=== PATIENT | female | born 1955 | race Hispanic/Latino ===

== ENCOUNTER 2016-09-07 13:59 | Inpatient (IN) | payer MEDICAID ==
[2016-09-07 14:01] VITALS: PULSE 122
[2016-09-07 14:45] VITALS: BMI 21.4
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
[2016-09-07] MEDS: Sodium Chloride 0.9% 1,000 ML IV SCH (16:37)
[2016-09-07 16:39] LABS: BASO # 0.01 K/mm3 (0.0-2.0); BASO % 0.1 % (0.0-3.0); EOS # 0.1 (0.0-0.7); EOS % 0.7 % (1.5-5.0); GRAN # 7.44 (1.4-6.5); GRAN % 78.1 % (50.0-68.0); LYMPH % 10.3 % (22.0-35.0); MEAN CELL VOLUME 91.8 fL (80.0-105.0); MEAN CORPUSCULAR HEMOGLOBIN 29.2 pg (25.0-35.0); MEAN CORPUSCULAR HGB CONC 31.8 g/dl (31.0-37.0); MEAN PLATELET VOLUME 9.9 fl (7.0-11.0); MONO % 10.8 % (1.0-6.0); PLATELET COUNT 287 10^3/uL (120.0-450.0); RBC 2.57 10^6/uL (3.5-6.1); RED CELL DISTRIBUTION WIDTH 13.9 % (11.5-14.5); WHITE BLOOD COUNT 9.5 10^3/ul (4.5-11.0)
[2016-09-07 16:41] LABS: HEMOGLOBIN 7.5 gm/dL (12.0-16.0)
[2016-09-07 16:43] LABS: VENOUS BLOOD GAS BASE EXCESS -5.5 mmol/L (0.0-2.0); VENOUS BLOOD GAS PO2 177 mm/Hg (30-55); VENOUS BLOOD PH 7.42 (7.32-7.43)
[2016-09-07] MEDS ORDERED: Vancomycin 1gm in NS 250ml 1 GM/250 ML BAG IVPB STA (16:48)
[2016-09-07 16:51] LABS: ALBUMIN 3.7 g/dL (3.0-4.8); MAGNESIUM 2.6 mg/dL (1.7-2.2)
[2016-09-07 16:55] LABS: INR 1.06 (0.93-1.08); PARTIAL THROMBOPLASTIN TIME 32.6 Seconds (23.7-30.8); PROTHROMBIN TIME 11.4 Seconds (9.9-11.8)
[2016-09-07] MEDS ORDERED: Insulin Regular 1 UNITS/0.01 ML ML SC STA (17:24)
[2016-09-07 17:58] LABS: URINE APPEARANCE CLEAR (CLEAR); URINE BILIRUBIN NEGATIVE (NEGATIVE); URINE BLOOD TRACE-INTACT (NEGATIVE); URINE COLOR YELLOW (YELLOW); URINE GLUCOSE (UA) >=1000 mg/dL (NEGATIVE); URINE LEUKOCYTE ESTERASE NEGATIVE Leu/uL (NEGATIVE); URINE NITRATE NEGATIVE (NEGATIVE); URINE PROTEIN 30 mg/dL (<30 mg/dL); URINE UROBILINOGEN 0.2 E.U./dL (<1 E.U./dL)
[2016-09-07 18:03] LABS: URINE WBC 0 - 2 /hpf (0-6)
[2016-09-07 18:04] LABS: URINE BACTERIA MOD (NEG)
[2016-09-07 18:05] LABS: URINE AMORPHOUS SEDIMENT FEW
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
[2016-09-07 21:23] LABS: % IRON SATURATION 6 % (20-55); IRON 11 ug/dL (45-180); TOTAL IRON BINDING CAPACITY 189 ug/dL (265-497)
[2016-09-07] MEDS: Insulin Reg-MEDIUM-Coverage SC SCH (22:17)
[2016-09-07] MEDS: Insulin Detemir 100 units/ml Vial (Levemir) SC SCH (22:18)
[2016-09-08] MEDS ORDERED: Acetaminophen 650mg/20.3ml solution UD PO PRN (04:51)
[2016-09-08 07:39] LABS: EOS # 0.1 (0.0-0.7); EOS % 2.3 % (1.5-5.0); GRAN # 4.54 (1.4-6.5); GRAN % 87.7 % (50.0-68.0); LYMPH # 0.3 (1.2-3.4); LYMPH % 4.8 % (22.0-35.0); MEAN CELL VOLUME 93.1 fL (80.0-105.0); MEAN CORPUSCULAR HEMOGLOBIN 28.8 pg (25.0-35.0); MEAN PLATELET VOLUME 10.2 fl (7.0-11.0); MONO # 0.3 (0.1-0.6); MONO % 5.2 % (1.0-6.0); PLATELET COUNT 288 10^3/uL (120.0-450.0); RED CELL DISTRIBUTION WIDTH 14.1 % (11.5-14.5); WHITE BLOOD COUNT 5.2 10^3/ul (4.5-11.0)
[2016-09-08] MEDS: Metoprolol Succinate 50 mg XL Tab PO SCH (07:58)
[2016-09-08] MEDS: Insulin Reg-MEDIUM-Coverage SC SCH ×4 (07:58→22:13)
[2016-09-08 08:09] LABS: HEMOGLOBIN 7.5 gm/dL (12.0-16.0)
[2016-09-08 08:10] LABS: ALBUMIN 3.4 g/dL (3.0-4.8); CALCIUM 9.1 mg/dL (8.4-10.5); MAGNESIUM 2.3 mg/dL (1.7-2.2)
[2016-09-08] MEDS ORDERED: DAPTOmycin 500 mg Inj (Cubicin) IV SCH (09:15)
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
--- NOTE | 2016-09-08 09:30 | RAD ---
HISTORY: r/o pneumonia COMPARISON: 09/20/2014 FINDINGS: LUNGS: No active pulmonary disease. PLEURA: No significant pleural effusion identified, no pneumothorax apparent. CARDIOVASCULAR: Normal. OSSEOUS STRUCTURES: No significant abnormalities. VISUALIZED UPPER ABDOMEN: Normal. OTHER FINDINGS: None. IMPRESSION: No active disease.
--- NOTE | 2016-09-08 10:07 | RAD ---
PROCEDURE: Left Foot Radiographs. HISTORY: cellulitis r/o osteo COMPARISON: 09/15/2013 FINDINGS: BONES: Postsurgical deformities are seen in the distal metatarsals. There has been previous amputation of the big toe. No acute findings JOINTS: Normal. SOFT TISSUES: Normal. OTHER FINDINGS: None. IMPRESSION: Postsurgical deformities are seen in the distal metatarsals. There has been previous amputation of the big toe. No acute findings
--- NOTE | 2016-09-08 10:22 | CARD ---
APPROVED REPORT EKG Measurement Heart [id number] <Conclusion> Sinus tachycardia Otherwise normal ECG
[2016-09-08] MEDS: Meropenem 1g/NS 100mL IVPB 1 GM/100 ML PIGGYBACK IVPB SCH ×3 (10:50→22:37)
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
--- NOTE | 2016-09-08 12:38 | MRI ---
PROCEDURE: MRI of the left foot without contrast HISTORY: r/o osteo COMPARISON: Plain films 09/07/2016 TECHNIQUE: MRI of the left foot was performed in multiple planes using multiple pulse sequences. FINDINGS: There has been previous amputation at the level of the 1st distal metatarsal. There is some chronic bony deformity of the remaining metatarsals. There is a small amount of marrow edema in the 1st metatarsal. This could be related to early osteomyelitis. There is no obvious cortical destruction. The finding is best appreciated on sagittal image 8 series 7. There is a large amount of subcutaneous edema and thickening consistent with cellulitis. IMPRESSION: A mild amount of marrow edema is seen in the 1st metatarsal which could represent early osteomyelitis. Diffuse subcutaneous edema consistent with cellulitis
--- NOTE | 2016-09-08 13:11 | CP.PCM.PN ---
Subjective - Date & Time of Evaluation Date of Evaluation: 09/08/16 Time of Evaluation: 12:54 - Subjective Subjective: Initial Nephrology Consultation: Assessment: Stable Acute Kidney Injury (N17.9) [likely hemodynamic due to current sepsis] versus Chronic Kidney Disease (N18.4) Stage 4 with ? mg proteinuria (R80.9) hx of FREDY in past Anemia (D64.9), uncontrolled DM with hyperglycemia, HTN (I12.9) non anion gap metabolic acidosis hearing loss, esophageal stenosis left foot cellulitis Plan No acute need for renal replacement therapy at this time. Hypertension control with meds as ordered. Patient not on ACEI/ARB due to elevated creatinine. BP controlled for now continue with IVF. will add sodium bicarb 1300 mg TID Monitor Input/Output, daily weights and renal function with basic metabolic panel Check urine analysis, spot protein/creatinine and albumin/creatinine ratio, renal sonogram. Urine for Na, K, chloride Check for 25-OH vitamin D, iPTH, Iron Indices. Check work up as C3, C4, lupus serology, ANCA (MPO and VA-3), serum protein electrophoresis with immunofixation, Hep B and Hep C serology, SCL-70 and anti- centromere antibody consider rheumatology eval once her acute condition resolves to explore multisystem disorder pathology such as scleroderma, vasculitis, MCTD, polychondritis etc Dose meds/antibiotics for reduced GFR 20-25. Avoid fleets enema/magnesium based laxatives. Avoid nephrotoxins/NSAIDs/ iodinated contrast (unless needed emergently) Glycemic control Further work up/management as per primary team Thanks for allowing me to participate in care of your patient. Will follow patient with you. Please call if any Qs. d/w primary team. Dr Javier Reyes Office: [phone] Chief Complaint; Left foot infection Reason for consult: elevated creatinine HPI: Pt is a 61 y/o F with hx of diabetes Mellitus ( x 8-9 years), hypertension (?years), hearing loss, esophageal stenosis, chronic anemia admitted with left foot worsening wound infection for last 1-2 days and renal consulted for elevated creatinine. Denies chest pain, palpitation, shortness of breath, leg swelling Denies blood or bubbles in urine Denies OTC/herbal meds or NSAIDs No recent iodinated contrast exposure. No obvious episodes of low BP. c/o chronic loose stool, nausea, some difficulty in swallowing, hearing loss. She also reports hand deformity due to arthritis ROS: Constitutional Symptoms: Denies fever. No chills. had gained some weight Eyes: denies change in vision, denies watery eyes, denies double vision Ears/Nose/Mouth/Throat: Denies Abnormal Taste. No Bad breath no Bad Taste. Cardiovascular: No chest pain. There is no shortness of breath. No palpitations. Pulmonary: No shortness of breath no cough. Gastrointestinal: denies abdominal pain c/o nausea. No vomiting. has chronic loose stool. Denies Bleeding Genitourinary: No Change in force of strain when urinating. No increase in urinary frequency. No pain while urinating. Denies blood in urine. Neurological: Denies headaches. No dizziness. Denies loss of balance. Denies weakness, denies tingling/numbness Dermatological: No Rash or Bruising. c/o b/l feet ulcers. also c/o scab/ crusting on tip of nose for few weeks. Psychiatric: Denies Anxiety. No depression. Denies hallucinations. Rheumatological: c/o left foot pain and swelling Endocrine: has some chronic tiredness/Fatigue denies Heat/Cold Intolerance. All other negative Physical Examination: General Appearance: Comfortable, in no acute respiratory distress, co-operative . frail appearing female Vitals reviewed and noted as below Head; Atraumatic, normocephalic ENT: no ulcers no thrush. Tongue is midline. Oropharynx: no rash or ulcers. has scab/crusting over tip of nose. she is hard of hearing. EYES: Pupils are equal, round and reactive to light accommodation. Eye muscles and extraocular movement intact. Sclera is anicteric. Neck; supple no lymphadenopathy, no thyromegaly or bruit Lungs: Normal respiratory rate/effort. Breath sounds bilateral equal and clear Heart: Increased rate. s1s2 normal. No rub or gallop. Extremities: LLE 1+ edema with left foot dressed. scab/ulceration on Rt foot as well, no active drainage there. No varicose veins. b/l hand deformity noted Neurological: Patient is alert, awake and oriented to person, place and time. No focal deficit. Strength bilateral appropriate and equal Skin: Warm and dry. turgor difficulty to ascertain due to her malnourished appearing status. No rash. Palpitation: Normal elasticity for age Abdomen: Abdomen is soft. Bowel sounds +. There is no abdominal tenderness, no guarding/rigidity no organomegaly Psych: normal insight and normal affect/mood MSK: left foot swelling +. b/l hand digits deformity : kidney or bladder not palpable Labs/imaging/EKG reviewed. Past medical history, past surgical history, family history, social history, allergy reviewed and noted as below Family hx: no hx of CKD. Rest non-contributory WORK UP UA: 30 protein trace blood RBC 2-5 and 3+ glucose CXR negative TSAT 6% Serum creatinine 1.9 in 2016 and 1.1 in 2015 Objective - Vital Signs/Intake and Output Vital Signs (last 24 hours): Temp Pulse Resp BP Pulse Ox 100.1 F H 120 H 20 131/61 98 09/08/16 07:30 09/08/16 07:58 09/08/16 07:30 09/08/16 07:58 09/08/16 07:30 Intake and Output: 09/08/16 09/08/16 06:59 18:59 Intake Total 180 Balance 180 - Medications Medications: Current Medications Acetaminophen (Tylenol 650mg/20.3ml Solution Ud) 650 mg PO Q6H PRN PRN Reason: fever Last Admin: 09/08/16 05:11 Dose: 650 mg Aspirin (Ecotrin) 81 mg PO DAILY [facility] Last Admin: 09/08/16 10:45 Dose: 81 mg Cadexomer Iodine (Iodosorb) 0 gm TOP DAILY [facility] Heparin Sodium (Porcine) (Heparin) 5,000 units SC Q12 [facility] PRN Reason: Protocol Last Admin: 09/08/16 10:49 Dose: 5,000 units Sodium Chloride (Sodium Chloride 0.9%) 1,000 mls @ 100 mls/hr IV .Q10H [facility] Last Admin: 09/07/16 16:37 Dose: 100 mls/hr Meropenem 1g/NS 100mL IVPB (Meropenem 1g/Ns 100ml Ivpb) 1 gm in 100 mls @ 100 mls/hr IVPB Q12 [facility] PRN Reason: Protocol Stop: 09/17/16 10:01 Last Admin: 09/08/16 10:50 Dose: 100 mls/hr Insulin Detemir (Levemir) 10 unit SC [facility] Last Admin: 09/07/16 22:18 Dose: 10 unit Insulin Human Regular (Humulin R Med) 0 units SC [facility] PRN Reason: Protocol Last Admin: 09/08/16 12:45 Dose: 1 units Megestrol Acetate (Megace) 40 mg PO DAILY [facility] Last Admin: 09/08/16 10:45 Dose: 40 mg Metoprolol Succinate (Toprol Xl) 50 mg PO BRK [facility] Last Admin: 09/08/16 07:58 Dose: 50 mg Pantoprazole Sodium (Protonix Inj) 40 mg IVP DAILY [facility] Last Admin: 09/08/16 10:51 Dose: 40 mg Sodium Bicarbonate (Sodium Bicarbonate Tab) 1,300 mg PO TID [facility] - Labs Labs: 09/08/16 06:55 09/08/16 07:00 PT 11.4 Seconds (9.9-11.8) 09/07/16 16:30 INR 1.06 (0.93-1.08) 09/07/16 16:30 APTT 32.6 Seconds (23.7-30.8) H 09/07/16 16:30
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
--- NOTE | 2016-09-08 14:16 | CP.PCM.PN ---
Subjective - Date & Time of Evaluation Date of Evaluation: 09/08/16 Time of Evaluation: 13:45 - Subjective Subjective: Patient has very poor veins,needs iv access Objective - Vital Signs/Intake and Output Vital Signs (last 24 hours): Temp Pulse Resp BP Pulse Ox 100.1 F H 120 H 20 131/61 98 09/08/16 07:30 09/08/16 07:58 09/08/16 07:30 09/08/16 07:58 09/08/16 07:30 Intake and Output: 09/08/16 09/08/16 06:59 18:59 Intake Total 180 Balance 180 - Medications Medications: Current Medications Acetaminophen (Tylenol 650mg/20.3ml Solution Ud) 650 mg PO Q6H PRN PRN Reason: fever Last Admin: 09/08/16 05:11 Dose: 650 mg Aspirin (Ecotrin) 81 mg PO DAILY [facility] Last Admin: 09/08/16 10:45 Dose: 81 mg Cadexomer Iodine (Iodosorb) 0 gm TOP DAILY [facility] Heparin Sodium (Porcine) (Heparin) 5,000 units SC Q12 [facility] PRN Reason: Protocol Last Admin: 09/08/16 10:49 Dose: 5,000 units Sodium Chloride (Sodium Chloride 0.9%) 1,000 mls @ 100 mls/hr IV .Q10H [facility] Last Admin: 09/07/16 16:37 Dose: 100 mls/hr Meropenem 1g/NS 100mL IVPB (Meropenem 1g/Ns 100ml Ivpb) 1 gm in 100 mls @ 100 mls/hr IVPB Q12 [facility] PRN Reason: Protocol Stop: 09/17/16 10:01 Last Admin: 09/08/16 10:50 Dose: 100 mls/hr Insulin Detemir (Levemir) 10 unit SC HS [facility] Last Admin: 09/07/16 22:18 Dose: 10 unit Insulin Human Regular (Humulin R Med) 0 units SC ACHS [facility] PRN Reason: Protocol Last Admin: 09/08/16 12:45 Dose: 1 units Megestrol Acetate (Megace) 40 mg PO DAILY [facility] Last Admin: 09/08/16 10:45 Dose: 40 mg Metoprolol Succinate (Toprol Xl) 50 mg PO BRK [facility] Last Admin: 09/08/16 07:58 Dose: 50 mg Pantoprazole Sodium (Protonix Inj) 40 mg IVP DAILY [facility] Last Admin: 09/08/16 10:51 Dose: 40 mg Sodium Bicarbonate (Sodium Bicarbonate Tab) 1,300 mg PO TID [facility] - Labs Labs: 09/08/16 06:55 09/08/16 07:00 PT 11.4 Seconds (9.9-11.8) 09/07/16 16:30 INR 1.06 (0.93-1.08) 09/07/16 16:30 APTT 32.6 Seconds (23.7-30.8) H 09/07/16 16:30 - Constitutional Appears: No Acute Distress Assessment and Plan - Assessment and Plan (Free Text) Assessment: Poor venous access. Plan: Hep lock inserted in the L antecubital region. # 24 angiocath used. Note :Pt will probably need a Picc line or TLC
[2016-09-08] MEDS ORDERED: Lidocaine 2% Inj (20ml) ONE (14:31)
--- NOTE | 2016-09-08 17:49 | CP.PCM.PN ---
<Chong [place] - Last Filed: 09/08/16 17:39> Subjective - Date & Time of Evaluation Date of Evaluation: 09/08/16 Time of Evaluation: 07:15 - Subjective Subjective: Internal Medicine Progress Note for Dr. Galvez/Dr. Salazar service Patient seen and examined at bedside. Today is hospital day 2. No acute events overnight. Left foot still acutely tender for patient, experiences pain when removing blanket from on-top of foot. Denies chest pain, shortness of breath, nausea/emesis, fever/chills, calf pain, or focal weakness. Objective - Vital Signs/Intake and Output Vital Signs (last 24 hours): Temp Pulse Resp BP Pulse Ox 98.4 F 115 H 20 120/64 96 09/08/16 16:29 09/08/16 16:29 09/08/16 16:29 09/08/16 16:29 09/08/16 16:29 Intake and Output: 09/08/16 09/08/16 06:59 18:59 Intake Total 180 480 Balance 180 480 - Medications Medications: Current Medications Acetaminophen (Tylenol 650mg/20.3ml Solution Ud) 650 mg PO Q6H PRN PRN Reason: fever Last Admin: 09/08/16 05:11 Dose: 650 mg Aspirin (Ecotrin) 81 mg PO DAILY [facility] Last Admin: 09/08/16 10:45 Dose: 81 mg Cadexomer Iodine (Iodosorb) 0 gm TOP DAILY [facility] Heparin Sodium (Porcine) (Heparin) 5,000 units SC Q12 [facility] PRN Reason: Protocol Last Admin: 09/08/16 10:49 Dose: 5,000 units Sodium Chloride (Sodium Chloride 0.9%) 1,000 mls @ 100 mls/hr IV .Q10H [facility] Last Admin: 09/07/16 16:37 Dose: 100 mls/hr Meropenem 1g/NS 100mL IVPB (Meropenem 1g/Ns 100ml Ivpb) 1 gm in 100 mls @ 100 mls/hr IVPB Q12 [facility] PRN Reason: Protocol Stop: 09/17/16 10:01 Last Admin: 09/08/16 16:35 Dose: Not Given Insulin Detemir (Levemir) 10 unit SC HS [facility] Last Admin: 09/07/16 22:18 Dose: 10 unit Insulin Human Regular (Humulin R Med) 0 units SC ACHS [facility] PRN Reason: Protocol Last Admin: 09/08/16 12:45 Dose: 1 units Megestrol Acetate (Megace) 40 mg PO DAILY [facility] Last Admin: 09/08/16 10:45 Dose: 40 mg Metoprolol Succinate (Toprol Xl) 50 mg PO BRK [facility] Last Admin: 09/08/16 07:58 Dose: 50 mg Pantoprazole Sodium (Protonix Inj) 40 mg IVP DAILY [facility] Last Admin: 09/08/16 10:51 Dose: 40 mg Sodium Bicarbonate (Sodium Bicarbonate Tab) 1,300 mg PO TID [facility] - Labs Labs: 09/08/16 06:55 09/08/16 07:00 PT 11.4 Seconds (9.9-11.8) 09/07/16 16:30 INR 1.06 (0.93-1.08) 09/07/16 16:30 APTT 32.6 Seconds (23.7-30.8) H 09/07/16 16:30 - Constitutional Appears: Well, Non-toxic, Older Than Stated Age, Chronically Ill, Other (No acute distress at rest, but any movement or contact with left foot elicits distress 2/2 pain) - Head Exam Head Exam: ATRAUMATIC, NORMAL INSPECTION, NORMOCEPHALIC - Eye Exam Eye Exam: EOMI, Normal appearance. absent: Conjunctival injection, Scleral icterus Pupil Exam: absent: Irregular, Unequal - ENT Exam ENT Exam: Mucous Membranes Moist - Neck Exam Neck Exam: Full ROM - Respiratory Exam Respiratory Exam: Clear to Ausculation Bilateral, NORMAL BREATHING PATTERN. absent: Accessory Muscle Use, Chest Wall Tenderness, Decreased Breath Sounds, Rales, Rhonchi, Wheezes - Cardiovascular Exam Cardiovascular Exam: Tachycardia, REGULAR RHYTHM, +S1, +S2. absent: Bradycardia , Irregular Rhythm, JVD, RRR, +S4 - GI/Abdominal Exam GI & Abdominal Exam: Soft. absent: Distended, Firm, Rigid, Tenderness, Diminished Bowel Sounds, Hyperactive Bowel Sounds, Hypoactive Bowel Sounds - Extremities Exam Additional comments: Left foot: great toe amputated, multiple subcutaneous pockets of purulence with some leakage along distal area at site of amputation extending proximally (up to bottom 1/3rd of foot), acutely tender to palpation at all sites of foot up to ankle (most prominent at sites of purulence), non-healing blacked ulceration at terminal end of 1st toe amputation site, faintly palpable dorsalis pedis pulse (thready), unable to palpate posterior tibial pulse. Abnormally warm to palpation along length of foot extending past ankle into bottom 1/8th of murry. Grossly swollen and erythematous, but non-pitting edema Right foot: no amputations, normal temp on palpation, excess dry skin, no edema/ erythema, small 1-2 cm shallow ulceration without active oozing/discharge, no bone visualized, some duskyness to skin, faintly palpable dorsalis pedis, unable to palpate posterior tibial pulse. - Neurological Exam Neurological Exam: Alert, Awake - Psychiatric Exam Psychiatric exam: Normal Affect, Normal Mood - Skin Additional comments: Except as described in lower extremity exam, warm/intact/normal color Assessment and Plan - Assessment and Plan (Free Text) Assessment: This is a 61 yo F with PMH of DM-2, anemia, PAD, GERD, osteomyelitis, esophageal stenosis, HTN, CKD, and CAD that presents with complaint of left foot pain and purulent drainage x2 days. She is being worked up for suspected osteomyelitis. Plan: 1) LLE Cellulitis vs osteomyelitis -febrile overnight, Tmax 102.3, improved with tylenol -no leukocytosis -Lactate within normal limits -Left foot xray negative for acute findings, pending foot MRI to r/o osteo as per Podiatry -Patient given 1 dose of vancomycin in the ED, now on Merrem as per ID -History of recurrent cellulitis/osteomyelitis, allergies and renal impairment -Sepsis workup pending: Blood cultures negative at 24 hours, wound culture pending, procal 8.44 -ID (Dr. Castellano) and Podiatry (Dr. Mattson) consulted, appreciate all recs -Given extremely poor venous access and high chance of needing prolonged antibiotics again, IR consulted for PICC line 2) DM-2 -Patient presented with glucose of 326 in the ED, given stat dose of 6 units humulin -Continue 10u levemir SC HS, humalog Med-ISS -Consistent carb diet -Fingersticks ACHS -A1c 13.4 3) FREDY on CKD -Cr 2.2 on admit, 2.2 again today, baseline from prior charting 1.1-1.4 -low bicarb (15) on admit and today, so some metabolic acidosis (bicarb loss 2/ 2 renal disease vs 2/2 elevated blood glucose) -Nephro consulted (Dr. Reyes), appreciate all recs -Renal US ordered as per Nephro 4) Anemia -Hgb of 7.5 on arrival to the ED (7.5 again today), per chart appears to be a chronic issue for which she was seen by Dr. Hartman in the past; Thought to be secondary to chronic kidney disease, low vitamin B12, and possibly malabsorption ; Previously treated with IV iron and aranesp; Was recommended to follow up with Dr. Hartman as an outpatient but has not -Anemia workup: low iron/iron sat/TIBC, elevated ferritin, retic count within normal range, folate wnl, elevated B12 -Type and screen ordered -No overt signs of blood loss at this time, will transfuse should patient hgb drop below 7 or become symptomatic -Hematology (Dr. Hartman) consulted, appreciate all recs 5) CAD -Continue ASA 81mg po daily 6) Hyperkalemia -5.2 on admit, 4.4 today -continue to monitor Dispo: Med/Surg, pending MRI to r/o osteo, pending Nephro/Podiatry/Heme-onc input, IV abx and monitoring of electrolytes/Hgb FEN: Heart-healthy consistent carb, NS 100cc/hr Access: Peripheral IV x1, PICC line (pending) Consults: ID, IR, Heme-onc, Podiatry, Nephro Ppx: Protonix for GI, Heparin SC for DVT Patient seen, reviewed, and discussed with attending, Dr. Salazar <Xavier Salazar - Last Filed: 09/13/16 15:26> Objective - Vital Signs/Intake and Output Vital Signs (last 24 hours): Temp Pulse Resp BP Pulse Ox 97.9 F 93 H 20 135/74 99 09/13/16 07:30 09/13/16 09:54 09/13/16 07:30 09/13/16 09:54 09/13/16 07:30 Intake and Output: 09/13/16 09/13/16 06:59 18:59 Intake Total 600 640 Output Total 1 Balance 600 639 - Medications Medications: Current Medications Acetaminophen (Tylenol 650mg/20.3ml Solution Ud) 650 mg PO Q6H PRN PRN Reason: fever Last Admin: 09/08/16 05:11 Dose: 650 mg Aspirin (Ecotrin) 81 mg PO DAILY [facility] Last Admin: 09/13/16 09:56 Dose: 81 mg Cadexomer Iodine (Iodosorb) 0 gm TOP DAILY [facility] Last Admin: 09/13/16 09:58 Dose: 1 gm Collagenase (Santyl) 0 gm TOP DAILY [facility] Last Admin: 09/13/16 10:14 Dose: 1 applic Ergocalciferol (Drisdol 50,000 Intl Units Cap) 1 cap PO Q7D [facility] Stop: 10/29/16 09:31 Last Admin: 09/10/16 10:18 Dose: 1 cap Ferrous Gluconate (Fergon) 324 mg PO TID [facility] Last Admin: 09/13/16 14:51 Dose: 324 mg Heparin Sodium (Porcine) (Heparin) 5,000 units SC Q12 [facility] PRN Reason: Protocol Last Admin: 09/13/16 09:58 Dose: 5,000 units Meropenem 1g/NS 100mL IVPB (Meropenem 1g/Ns 100ml Ivpb) 1 gm in 100 mls @ 100 mls/hr IVPB Q12 [facility] PRN Reason: Protocol Stop: 09/17/16 10:01 Last Admin: 09/13/16 10:01 Dose: 100 mls/hr Iron Sucrose 100 mg/ Sodium (Chloride) 105 mls @ 210 mls/hr IVPB DAILY [facility] Stop: 09/15/16 12:01 Last Admin: 09/13/16 10:02 Dose: 210 mls/hr Insulin Detemir (Levemir) 12 unit SC AMHS [facility] Last Admin: 09/13/16 10:00 Dose: 12 unit Insulin Human Regular (Humulin R Med) 0 units SC ACHS [facility] PRN Reason: Protocol Last Admin: 09/13/16 12:02 Dose: 8 units Losartan Potassium (Cozaar) 50 mg PO DAILY [facility] Last Admin: 09/13/16 09:54 Dose: 50 mg Magnesium Oxide (Mag-Ox) 400 mg PO DAILY [facility] Last Admin: 09/13/16 10:01 Dose: 400 mg Megestrol Acetate (Megace) 40 mg PO DAILY [facility] Last Admin: 09/13/16 10:01 Dose: 40 mg Metoprolol Succinate (Toprol Xl) 50 mg PO BRK [facility] Last Admin: 09/13/16 08:11 Dose: 50 mg Multivitamins (Thera Tab) 1 tab PO 0800 [facility] Last Admin: 09/13/16 08:11 Dose: 1 tab Mupirocin (Bactroban Ointment) 0 gm TOP BID [facility] Last Admin: 09/13/16 11:56 Dose: 1 applic Pantoprazole Sodium (Protonix Susp) 40 mg PO 0600 [facility] Last Admin: 09/13/16 05:34 Dose: 40 mg Sodium Bicarbonate (Sodium Bicarbonate Tab) 650 mg PO TID [facility] Last Admin: 09/13/16 14:52 Dose: 650 mg - Labs Labs: 09/13/16 05:45 09/13/16 05:45 PT 11.4 Seconds (9.9-11.8) 09/07/16 16:30 INR 1.06 (0.93-1.08) 09/07/16 16:30 APTT 32.6 Seconds (23.7-30.8) H 09/07/16 16:30 Attending/Attestation - Attestation I have personally seen and examined this patient.: Yes I have fully participated in the care of the patient.: Yes I have reviewed all pertinent clinical information, including history, physical exam and plan: Yes Notes (Text): 09/13/16 15:26 Medical record note made by the resident after discussion with my direction and input after the patient was personally seen and examined by me. I have reviewed the chart and agree that the record accurately reflects by personal performance of the history, physical exam, data review, and medical decision-making, in the course for the patient. I have also personally directed the plan of care.
[2016-09-08 17:55] LABS: FOLATE > 20.0 ng/mL
--- NOTE | 2016-09-08 17:58 | US ---
PROCEDURE: Ultrasound of the Kidneys HISTORY: FREDY on CKD COMPARISON: None available. TECHNIQUE: Sonogram of the kidneys. FINDINGS: RIGHT KIDNEY: Measures: 4 x 9.7 cm. Cortical atrophy noted. No stone, solid mass lesion or hydronephrosis visualized. Incidental finding(s): Simple cyst upper pole 1 cm LEFT KIDNEY: Measures: 4.6 x 9.2 cm. Cortical atrophy identified No stone, solid mass lesion or hydronephrosis visualized. OTHER FINDINGS: None. IMPRESSION: No acute findings related to/accounting for the clinical presentation.
[2016-09-08] MEDS: Insulin Detemir 100 units/ml Vial (Levemir) SC SCH (22:13)
[2016-09-08] MEDS: Sodium Chloride 0.9% 1,000 ML IV SCH (22:38)
[2016-09-09] MEDS: CADEXOMER IODINE 0.9% GEL 10G TOP SCH ×2 (08:39→09:13)
[2016-09-09] MEDS: Insulin Reg-MEDIUM-Coverage SC SCH ×3 (08:43→22:07)
--- NOTE | 2016-09-09 08:59 | CP.PCM.PN ---
<Solo Jewella - Last Filed: 09/09/16 08:56> Subjective - Date & Time of Evaluation Date of Evaluation: 09/09/16 Time of Evaluation: 08:56 - Subjective Subjective: 61 y/o F seen at bedside with attending Dr. Raymond for left foot cellulitis and sub met 1 ulceration. Patient seen resting comfortably, AAOx3 and NAD. Patient denies any acute events overnight. Patient reports continued tenderness to her left foot. Pt denies of any N/V/C/SOB today. No other pedal complaints at this time. Objective - Vital Signs/Intake and Output Vital Signs (last 24 hours): Temp Pulse Resp BP Pulse Ox 98.1 F 112 H 20 125/53 L 99 09/09/16 07:34 09/09/16 07:34 09/09/16 07:34 09/09/16 07:34 09/09/16 07:34 Intake and Output: 09/09/16 09/09/16 06:59 18:59 Intake Total 600 Balance 600 - Medications Medications: Current Medications Acetaminophen (Tylenol 650mg/20.3ml Solution Ud) 650 mg PO Q6H PRN PRN Reason: fever Last Admin: 09/08/16 05:11 Dose: 650 mg Aspirin (Ecotrin) 81 mg PO DAILY [facility] Last Admin: 09/08/16 10:45 Dose: 81 mg Cadexomer Iodine (Iodosorb) 0 gm TOP DAILY [facility] Last Admin: 09/09/16 08:39 Dose: 1 gm Heparin Sodium (Porcine) (Heparin) 5,000 units SC Q12 [facility] PRN Reason: Protocol Last Admin: 09/08/16 22:10 Dose: 5,000 units Sodium Chloride (Sodium Chloride 0.9%) 1,000 mls @ 100 mls/hr IV .Q10H [facility] Last Admin: 09/08/16 22:38 Dose: 100 mls/hr Meropenem 1g/NS 100mL IVPB (Meropenem 1g/Ns 100ml Ivpb) 1 gm in 100 mls @ 100 mls/hr IVPB Q12 [facility] PRN Reason: Protocol Stop: 09/17/16 10:01 Last Admin: 09/08/16 22:37 Dose: 100 mls/hr Insulin Detemir (Levemir) 10 unit SC HS [facility] Last Admin: 09/08/16 22:13 Dose: 10 unit Insulin Human Regular (Humulin R Med) 0 units SC ACHS [facility] PRN Reason: Protocol Last Admin: 09/09/16 08:43 Dose: Not Given Megestrol Acetate (Megace) 40 mg PO DAILY [facility] Last Admin: 09/08/16 10:45 Dose: 40 mg Metoprolol Succinate (Toprol Xl) 50 mg PO BRK [facility] Last Admin: 09/08/16 07:58 Dose: 50 mg Pantoprazole Sodium (Protonix Inj) 40 mg IVP DAILY [facility] Last Admin: 09/08/16 10:51 Dose: 40 mg Sodium Bicarbonate (Sodium Bicarbonate Tab) 1,300 mg PO TID [facility] Last Admin: 09/08/16 17:53 Dose: 1,300 mg - Labs Labs: 09/08/16 06:55 09/08/16 07:00 PT 11.4 Seconds (9.9-11.8) 09/07/16 16:30 INR 1.06 (0.93-1.08) 09/07/16 16:30 APTT 32.6 Seconds (23.7-30.8) H 09/07/16 16:30 - Constitutional Appears: Well, Non-toxic, No Acute Distress - Extremities Exam Additional comments: Left foot focused exam: VASC: DP/PT pulses are palpable 2/4, RN PRODUCTION: < 3 sec x 4, TG: warm to cool, no pitting or non-pitting edema noted, superficial erythema noted surrounding forefoot DERM: superficial wound on plantar 1st metatarsal head with hyperkeratotic rim, wound base is necrotic with fibrotic border, no malodor, no drainage noted, no probe to bone, no undermining or tunneling noted, superficial epidermal layer shedding noted, localized erythema noted on the dorsum of the L forefoot NEURO: Grossly intact ORTHO: pain on palpation of the lesion site, L foot hallux amputation, contracted digits 2-4 noted - Neurological Exam Neurological Exam: Alert, Awake, Oriented x3 - Psychiatric Exam Psychiatric exam: Normal Affect, Normal Mood Assessment and Plan - Assessment and Plan (Free Text) Assessment: 61 y/o female with PMHx of Diabetes mellitus type 2, anemia, peripheral arterial disease, GERD, esophageal stenosis, hypertension, chronic kidney disease, osteomyelitis, CAD seen at bedside for L foot cellulitis and open ulceration Plan: Pt evaluated and chart reviewed and seen at bedside with Dr. Raymond Labs and vital reviewed: afebrile, absent leukocytosis, HbA1c = 13.4, ESR = 87, Cr-P >15.00 Follow up wound cx Continue IV abx as per ID; meropenem X-rays reviewed (no significant soft tissue edema or gross abnormalities noted) MRI results obtained: marrow edema 1st met, could be suggestive of early OM Applied iodosorb, adaptic, maxsorb, ABD, kerlix to left foot Podiatry will continue to follow the pt while in-house <Jose Raymond - Last Filed: 09/11/16 08:18> Objective - Vital Signs/Intake and Output Vital Signs (last 24 hours): Temp Pulse Resp BP Pulse Ox 98.6 F 93 H 18 153/86 H 98 09/10/16 20:28 09/10/16 20:28 09/10/16 20:28 09/10/16 20:28 09/10/16 08:45 Intake and Output: 09/11/16 09/11/16 06:59 18:59 Intake Total 1255 Output Total 250 Balance 1005 - Medications Medications: Current Medications Acetaminophen (Tylenol 650mg/20.3ml Solution Ud) 650 mg PO Q6H PRN PRN Reason: fever Last Admin: 09/08/16 05:11 Dose: 650 mg Aspirin (Ecotrin) 81 mg PO DAILY [facility] Last Admin: 09/10/16 10:19 Dose: 81 mg Cadexomer Iodine (Iodosorb) 0 gm TOP DAILY [facility] Last Admin: 09/10/16 15:03 Dose: 10 gm Ergocalciferol (Drisdol 50,000 Intl Units Cap) 1 cap PO Q7D [facility] Stop: 10/29/16 09:31 Last Admin: 09/10/16 10:18 Dose: 1 cap Ferrous Gluconate (Fergon) 324 mg PO TID [facility] Last Admin: 09/10/16 18:03 Dose: 324 mg Heparin Sodium (Porcine) (Heparin) 5,000 units SC Q12 [facility] PRN Reason: Protocol Last Admin: 09/10/16 21:08 Dose: 5,000 units Sodium Chloride (Sodium Chloride 0.9%) 1,000 mls @ 100 mls/hr IV .Q10H [facility] Last Admin: 09/11/16 01:06 Dose: 100 mls/hr Meropenem 1g/NS 100mL IVPB (Meropenem 1g/Ns 100ml Ivpb) 1 gm in 100 mls @ 100 mls/hr IVPB Q12 [facility] PRN Reason: Protocol Stop: 09/17/16 10:01 Last Admin: 09/10/16 21:07 Dose: 100 mls/hr Iron Sucrose 100 mg/ Sodium (Chloride) 105 mls @ 210 mls/hr IVPB DAILY [facility] Stop: 09/15/16 12:01 Last Admin: 09/10/16 13:02 Dose: 210 mls/hr Insulin Detemir (Levemir) 10 unit SC HS [facility] Last Admin: 09/10/16 21:07 Dose: 10 unit Insulin Human Regular (Humulin R Med) 0 units SC ACHS [facility] PRN Reason: Protocol Last Admin: 09/10/16 21:09 Dose: Not Given Magnesium Oxide (Mag-Ox) 400 mg PO DAILY [facility] Last Admin: 09/10/16 10:19 Dose: 400 mg Megestrol Acetate (Megace) 40 mg PO DAILY [facility] Last Admin: 09/10/16 10:18 Dose: 40 mg Metoprolol Succinate (Toprol Xl) 50 mg PO BRK [facility] Last Admin: 09/10/16 10:20 Dose: 50 mg Multivitamins (Thera Tab) 1 tab PO 0800 [facility] Last Admin: 09/10/16 10:18 Dose: 1 tab Pantoprazole Sodium (Protonix Susp) 40 mg PO 0600 [facility] Last Admin: 09/11/16 05:28 Dose: Not Given Sodium Bicarbonate (Sodium Bicarbonate Tab) 1,300 mg PO TID [facility] Last Admin: 09/10/16 18:03 Dose: 1,300 mg - Labs Labs: 09/11/16 05:50 09/11/16 05:50 PT 11.4 Seconds (9.9-11.8) 09/07/16 16:30 INR 1.06 (0.93-1.08) 09/07/16 16:30 APTT 32.6 Seconds (23.7-30.8) H 09/07/16 16:30 Attending/Attestation - Attestation I have personally seen and examined this patient.: Yes I have fully participated in the care of the patient.: Yes I have reviewed all pertinent clinical information, including history, physical exam and plan: Yes
[2016-09-09] MEDS: Meropenem 1g/NS 100mL IVPB 1 GM/100 ML PIGGYBACK IVPB SCH ×2 (09:12→21:46)
[2016-09-09] MEDS: Metoprolol Succinate 50 mg XL Tab PO SCH (09:12)
[2016-09-09] MEDS ORDERED: Darbepoetin Alfa 40 mcg/ml Inj SC ONE (09:26)
--- NOTE | 2016-09-09 09:59 | CP.PCM.PN ---
Subjective - Date & Time of Evaluation Date of Evaluation: 09/09/16 Time of Evaluation: 09:57 - Subjective Subjective: Follow up Nephrology Consultation: Assessment: Stable Acute Kidney Injury (N17.9) [likely hemodynamic due to current sepsis] versus Chronic Kidney Disease (N18.4) Stage 4 with ? mg proteinuria (R80.9) with biltareal renal cortical atrophy seen on sonogram. Simple cyst Rt kidney hx of FREDY in past Anemia (D64.9), uncontrolled DM with hyperglycemia, HTN (I12.9) non anion gap metabolic acidosis hearing loss, esophageal stenosis left foot cellulitis Plan No acute need for renal replacement therapy at this time. Hypertension control with meds as ordered. Patient not on ACEI/ARB due to elevated creatinine. BP controlled for now continue with IVF. added sodium bicarb 1300 mg TID Monitor Input/Output, daily weights and renal function with basic metabolic panel Check urine analysis, spot protein/creatinine and albumin/creatinine ratio, renal sonogram. Urine for Na, K, chloride Check for 25-OH vitamin D, iPTH, Iron Indices. Check work up as C3, C4, lupus serology, ANCA (MPO and MI-3), serum protein electrophoresis with immunofixation, Hep B and Hep C serology, SCL-70 and anti- centromere antibody consider rheumatology eval once her acute condition resolves to explore multisystem disorder pathology such as scleroderma, vasculitis, MCTD, polychondritis etc Dose meds/antibiotics for reduced GFR 20-25. Avoid fleets enema/magnesium based laxatives. Avoid nephrotoxins/NSAIDs/ iodinated contrast (unless needed emergently) Glycemic control Further work up/management as per primary team Thanks for allowing me to participate in care of your patient. Will follow patient with you. Please call if any Qs. d/w primary team. Dr Javier Reyes Office: [phone] Reason for consult: elevated creatinine HPI: Pt is a 61 y/o F with hx of diabetes Mellitus ( x 8-9 years), hypertension (?years), hearing loss, esophageal stenosis, chronic anemia admitted with left foot worsening wound infection for last 1-2 days and renal consulted for elevated creatinine. ROS: Denies chest pain, palpitation, shortness of breath, leg swelling Physical Examination: General Appearance: Comfortable, in no acute respiratory distress, co-operative . frail appearing female Vitals reviewed and noted as below Lungs: Normal respiratory rate/effort. Breath sounds bilateral equal and clear Heart: Increased rate. s1s2 normal. No rub or gallop. Extremities: LLE 1+ edema with left foot dressed. scab/ulceration on Rt foot as well, no active drainage there. No varicose veins. b/l hand deformity noted Neurological: Patient is alert, awake and oriented to person, place and time. No focal deficit. Strength bilateral appropriate and equal Skin: Warm and dry. turgor difficulty to ascertain due to her malnourished appearing status. No rash. Palpitation: Normal elasticity for age Abdomen: Abdomen is soft. Bowel sounds +. There is no abdominal tenderness, no guarding/rigidity no organomegaly Psych: normal insight and normal affect/mood MSK: left foot swelling +. b/l hand digits deformity : kidney or bladder not palpable Labs/imaging/EKG reviewed. Past medical history, past surgical history, family history, social history, allergy reviewed and noted as below Family hx: no hx of CKD. Rest non-contributory WORK UP UA: 30 protein trace blood RBC 2-5 and 3+ glucose CXR negative TSAT 6% Serum creatinine 1.9 in 2016 and 1.1 in 2014 Objective - Vital Signs/Intake and Output Vital Signs (last 24 hours): Temp Pulse Resp BP Pulse Ox 98.1 F 112 H 20 125/53 L 99 09/09/16 07:34 09/09/16 07:34 09/09/16 07:34 09/09/16 09:12 09/09/16 07:34 Intake and Output: 09/09/16 09/09/16 06:59 18:59 Intake Total 600 Balance 600 - Medications Medications: Current Medications Acetaminophen (Tylenol 650mg/20.3ml Solution Ud) 650 mg PO Q6H PRN PRN Reason: fever Last Admin: 09/08/16 05:11 Dose: 650 mg Aspirin (Ecotrin) 81 mg PO DAILY [facility] Last Admin: 09/09/16 09:12 Dose: 81 mg Cadexomer Iodine (Iodosorb) 0 gm TOP DAILY [facility] Last Admin: 09/09/16 09:13 Dose: Not Given Ferrous Gluconate (Fergon) 324 mg PO TID [facility] Heparin Sodium (Porcine) (Heparin) 5,000 units SC Q12 [facility] PRN Reason: Protocol Last Admin: 09/09/16 09:13 Dose: 5,000 units Sodium Chloride (Sodium Chloride 0.9%) 1,000 mls @ 100 mls/hr IV .Q10H [facility] Last Admin: 09/08/16 22:38 Dose: 100 mls/hr Meropenem 1g/NS 100mL IVPB (Meropenem 1g/Ns 100ml Ivpb) 1 gm in 100 mls @ 100 mls/hr IVPB Q12 [facility] PRN Reason: Protocol Stop: 09/17/16 10:01 Last Admin: 09/09/16 09:12 Dose: 100 mls/hr Insulin Detemir (Levemir) 10 unit SC HS [facility] Last Admin: 09/08/16 22:13 Dose: 10 unit Insulin Human Regular (Humulin R Med) 0 units SC ACHS [facility] PRN Reason: Protocol Last Admin: 09/09/16 08:43 Dose: Not Given Megestrol Acetate (Megace) 40 mg PO DAILY [facility] Last Admin: 09/09/16 09:12 Dose: 40 mg Metoprolol Succinate (Toprol Xl) 50 mg PO BRK [facility] Last Admin: 09/09/16 09:12 Dose: 50 mg Multivitamins (Thera Tab) 1 tab PO 0800 [facility] Pantoprazole Sodium (Protonix Inj) 40 mg IVP DAILY [facility] Last Admin: 09/09/16 09:14 Dose: 40 mg Sodium Bicarbonate (Sodium Bicarbonate Tab) 1,300 mg PO TID [facility] Last Admin: 09/09/16 09:11 Dose: 1,300 mg - Labs Labs: 09/08/16 06:55 09/08/16 07:00 PT 11.4 Seconds (9.9-11.8) 09/07/16 16:30 INR 1.06 (0.93-1.08) 09/07/16 16:30 APTT 32.6 Seconds (23.7-30.8) H 09/07/16 16:30
--- NOTE | 2016-09-09 11:00 | CP.PCM.PN ---
<Chong [place] - Last Filed: 09/09/16 21:57> Subjective - Date & Time of Evaluation Date of Evaluation: 09/09/16 Time of Evaluation: 07:15 - Subjective Subjective: Internal Medicine Progress Note for Dr. Galvez/Dr. Salazar service Patient seen and examined at bedside. Today is hospital day 3. No acute events overnight. Left foot still acutely tender for patient, but less pain now that site is bandaged (have to actively palpate through bandaging for pain) . Denies chest pain, shortness of breath, nausea/emesis, fever/chills, calf pain, or focal weakness. Objective - Vital Signs/Intake and Output Vital Signs (last 24 hours): Temp Pulse Resp BP Pulse Ox 98.1 F 112 H 20 125/53 L 99 09/09/16 07:34 09/09/16 07:34 09/09/16 07:34 09/09/16 09:12 09/09/16 07:34 Intake and Output: 09/09/16 09/09/16 06:59 18:59 Intake Total 600 Balance 600 - Medications Medications: Current Medications Acetaminophen (Tylenol 650mg/20.3ml Solution Ud) 650 mg PO Q6H PRN PRN Reason: fever Last Admin: 09/08/16 05:11 Dose: 650 mg Aspirin (Ecotrin) 81 mg PO DAILY [facility] Last Admin: 09/09/16 09:12 Dose: 81 mg Cadexomer Iodine (Iodosorb) 0 gm TOP DAILY [facility] Last Admin: 09/09/16 09:13 Dose: Not Given Ferrous Gluconate (Fergon) 324 mg PO TID [facility] Heparin Sodium (Porcine) (Heparin) 5,000 units SC Q12 [facility] PRN Reason: Protocol Last Admin: 09/09/16 09:13 Dose: 5,000 units Sodium Chloride (Sodium Chloride 0.9%) 1,000 mls @ 100 mls/hr IV .Q10H [facility] Last Admin: 09/08/16 22:38 Dose: 100 mls/hr Meropenem 1g/NS 100mL IVPB (Meropenem 1g/Ns 100ml Ivpb) 1 gm in 100 mls @ 100 mls/hr IVPB Q12 [facility] PRN Reason: Protocol Stop: 09/17/16 10:01 Last Admin: 09/09/16 09:12 Dose: 100 mls/hr Insulin Detemir (Levemir) 10 unit SC [facility] Last Admin: 09/08/16 22:13 Dose: 10 unit Insulin Human Regular (Humulin R Med) 0 units SC [facility] PRN Reason: Protocol Last Admin: 09/09/16 08:43 Dose: Not Given Megestrol Acetate (Megace) 40 mg PO DAILY [facility] Last Admin: 09/09/16 09:12 Dose: 40 mg Metoprolol Succinate (Toprol Xl) 50 mg PO BRK [facility] Last Admin: 09/09/16 09:12 Dose: 50 mg Multivitamins (Thera Tab) 1 tab PO 0800 [facility] Pantoprazole Sodium (Protonix Inj) 40 mg IVP DAILY [facility] Last Admin: 09/09/16 09:14 Dose: 40 mg Sodium Bicarbonate (Sodium Bicarbonate Tab) 1,300 mg PO TID [facility] Last Admin: 09/09/16 09:11 Dose: 1,300 mg - Labs Labs: 09/08/16 06:55 09/08/16 07:00 PT 11.4 Seconds (9.9-11.8) 09/07/16 16:30 INR 1.06 (0.93-1.08) 09/07/16 16:30 APTT 32.6 Seconds (23.7-30.8) H 09/07/16 16:30 - Additional Findings Additional findings: - Constitutional Appears: Well, Non-toxic, Older Than Stated Age, Chronically Ill, No acute distress - Head Exam Head Exam: ATRAUMATIC, NORMAL INSPECTION, NORMOCEPHALIC - Eye Exam Eye Exam: EOMI, Normal appearance. absent: Conjunctival injection, Scleral icterus Pupil Exam: absent: Irregular, Unequal - ENT Exam ENT Exam: Mucous Membranes Moist - Neck Exam Neck Exam: Full ROM - Respiratory Exam Respiratory Exam: Clear to Ausculation Bilateral, NORMAL BREATHING PATTERN. absent: Accessory Muscle Use, Chest Wall Tenderness, Decreased Breath Sounds, Rales, Rhonchi, Wheezes - Cardiovascular Exam Cardiovascular Exam: Tachycardia, REGULAR RHYTHM, +S1, +S2 (prominent S2 sounds) . absent: Bradycardia, Irregular Rhythm, JVD, RRR, +S4 - GI/Abdominal Exam GI & Abdominal Exam: Soft. absent: Distended, Firm, Rigid, Tenderness, Diminished Bowel Sounds, Hyperactive Bowel Sounds, Hypoactive Bowel Sounds - Extremities Exam Left foot: bandaged from end of foot to ankle, some abnormal warmth palpated at left ankle, acutely tender when palpating base of foot through bandaging, otherwise less painful in general, unable to palpable dorsalis pedis pulse due to bandaging, unable to palpate posterior tibial pulse. No erythema/edema/ tenderness to palpation at left ankle or above Right foot: no amputations, normal temp on palpation, excess dry skin, no edema/ erythema, small 1-2 cm shallow ulceration without active oozing/discharge, no bone visualized, some duskyness to skin, faintly palpable dorsalis pedis, unable to palpate posterior tibial pulse. - Neurological Exam Neurological Exam: Alert, Awake - Psychiatric Exam Psychiatric exam: Normal Affect, Normal Mood - Skin Except as described in lower extremity exam, warm/intact/normal color Assessment and Plan - Assessment and Plan (Free Text) Assessment: This is a 61 yo F with PMH of DM-2, anemia, PAD, GERD, osteomyelitis, esophageal stenosis, HTN, CKD, and CAD that presents with complaint of left foot pain and purulent drainage x2 days. She is being treated for cellulitis and suspected early osteomyelitis. Plan: 1) LLE Cellulitis vs osteomyelitis -mild temp overnight of 100.1, Tmax for admission 102.3 -no leukocytosis -Lactate within normal limits -Left foot xray negative for acute findings, foot MRI notable for mild amount of marrow edema at 1st metatarsal possibly indicating early osteomyelitis -Local care and bandaging this AM by Podiatry -Patient given 1 dose of vancomycin in the ED, now on Merrem as per ID -History of recurrent cellulitis/osteomyelitis, allergies and renal impairment -Sepsis workup pending: Blood and urine cultures negative at 24 hours, wound culture pending, procal 8.44 -ID (Dr. Castellano) and Podiatry (Dr. Mattson) consulted, appreciate all recs -Given extremely poor venous access and high chance of needing prolonged antibiotics again, IR consulted for PICC line 2) DM-2 -Patient presented with glucose of 326 in the ED, given stat dose of 6 units humulin -Continue 10u levemir SC HS, humalog Med-ISS -Consistent carb diet -Fingersticks ACHS, fingersticks overnight 100's-200's -A1c 13.4 3) FREDY on CKD -Cr 2.2 on admit, 1.5 today, baseline from prior charting 1.1-1.4 -low bicarb (15) on admit and today, so some metabolic acidosis (bicarb loss 2/ 2 renal disease vs 2/2 elevated blood glucose) -Nephro consulted (Dr. Reyes), appreciate all recs; no need for renal replacement therapy at this time, added 1300mg TID Sodium Bicarb -Renal US ordered as per Nephro 4) Anemia -Hgb of 7.5 on arrival to the ED (7.7 today), per chart appears to be a chronic issue for which she was seen by Dr. Hartman in the past; Thought to be secondary to chronic kidney disease, low vitamin B12, and possibly malabsorption; Previously treated with IV iron and aranesp; Was recommended to follow up with Dr. Hartman as an outpatient but has not -Anemia workup: low iron/iron sat/TIBC, elevated ferritin, retic count within normal range, folate wnl, elevated B12 -Type and screen ordered -No overt signs of blood loss at this time, will transfuse should patient hgb drop below 7 or become symptomatic -Hematology (Dr. Hartman) consulted, appreciate all recs 5) CAD -Continue ASA 81mg po daily 6) Hyperkalemia -5.2 on admit, 4.4 yesterday, 4.2 today -continue to monitor Dispo: Med/Surg, pending MRI to r/o osteo, pending Nephro/Podiatry/Heme-onc input, IV abx and monitoring of electrolytes/Hgb FEN: Heart-healthy consistent carb, NS 100cc/hr Access: Peripheral IV x1, PICC line (pending) Consults: ID, IR, Heme-onc, Podiatry, Nephro Ppx: Protonix for GI, Heparin SC for DVT Patient reviewed and discussed with attending, Dr. العراقي <Linwood العراقي - Last Filed: 09/09/16 22:24> Subjective - Subjective Subjective: Discussed with the resident length went over the labs and the hospital stay and course continue with aggressive treatment and care Objective - Vital Signs/Intake and Output Vital Signs (last 24 hours): Temp Pulse Resp BP Pulse Ox 98.1 F 112 H 20 125/53 L 99 09/09/16 07:34 09/09/16 07:34 09/09/16 07:34 09/09/16 09:12 09/09/16 07:34 Intake and Output: 09/09/16 09/10/16 18:59 06:59 Intake Total 640 Balance 640 - Medications Medications: Current Medications Acetaminophen (Tylenol 650mg/20.3ml Solution Ud) 650 mg PO Q6H PRN PRN Reason: fever Last Admin: 09/08/16 05:11 Dose: 650 mg Aspirin (Ecotrin) 81 mg PO DAILY [facility] Last Admin: 09/09/16 09:12 Dose: 81 mg Cadexomer Iodine (Iodosorb) 0 gm TOP DAILY [facility] Last Admin: 09/09/16 09:13 Dose: Not Given Ferrous Gluconate (Fergon) 324 mg PO TID [facility] Heparin Sodium (Porcine) (Heparin) 5,000 units SC Q12 [facility] PRN Reason: Protocol Last Admin: 09/09/16 21:47 Dose: 5,000 units Sodium Chloride (Sodium Chloride 0.9%) 1,000 mls @ 100 mls/hr IV .Q10H [facility] Last Admin: 09/08/16 22:38 Dose: 100 mls/hr Meropenem 1g/NS 100mL IVPB (Meropenem 1g/Ns 100ml Ivpb) 1 gm in 100 mls @ 100 mls/hr IVPB Q12 [facility] PRN Reason: Protocol Stop: 09/17/16 10:01 Last Admin: 09/09/16 21:46 Dose: 100 mls/hr Insulin Detemir (Levemir) 10 unit SC HS [facility] Last Admin: 09/09/16 21:47 Dose: 10 unit Insulin Human Regular (Humulin R Med) 0 units SC ACHS [facility] PRN Reason: Protocol Last Admin: 09/09/16 22:07 Dose: Not Given Linezolid (Zyvox) 600 mg PO BID [facility] PRN Reason: Protocol Stop: 10/07/16 18:01 Megestrol Acetate (Megace) 40 mg PO DAILY [facility] Last Admin: 09/09/16 09:12 Dose: 40 mg Metoprolol Succinate (Toprol Xl) 50 mg PO BRK [facility] Last Admin: 09/09/16 09:12 Dose: 50 mg Multivitamins (Thera Tab) 1 tab PO 0800 [facility] Pantoprazole Sodium (Protonix Inj) 40 mg IVP DAILY [facility] Last Admin: 09/09/16 09:14 Dose: 40 mg Sodium Bicarbonate (Sodium Bicarbonate Tab) 1,300 mg PO TID [facility] Last Admin: 09/09/16 09:11 Dose: 1,300 mg - Labs Labs: 09/09/16 11:00 09/09/16 11:00 PT 11.4 Seconds (9.9-11.8) 09/07/16 16:30 INR 1.06 (0.93-1.08) 09/07/16 16:30 APTT 32.6 Seconds (23.7-30.8) H 09/07/16 16:30
[2016-09-09 11:18] LABS: BASO # 0.01 K/mm3 (0.0-2.0); BASO % 0.3 % (0.0-3.0); EOS # 0.2 (0.0-0.7); EOS % 5.8 % (1.5-5.0); GRAN % 66.2 % (50.0-68.0); LYMPH # 0.6 (1.2-3.4); LYMPH % 15.9 % (22.0-35.0); MEAN CELL VOLUME 94.7 fL (80.0-105.0); MEAN CORPUSCULAR HEMOGLOBIN 29.1 pg (25.0-35.0); MEAN CORPUSCULAR HGB CONC 30.7 g/dl (31.0-37.0); MEAN PLATELET VOLUME 9.8 fl (7.0-11.0); MONO # 0.4 (0.1-0.6); MONO % 11.8 % (1.0-6.0); PLATELET COUNT 294 10^3/uL (120.0-450.0); RBC 2.65 10^6/uL (3.5-6.1); RED CELL DISTRIBUTION WIDTH 14.6 % (11.5-14.5); WHITE BLOOD COUNT 3.5 10^3/ul (4.5-11.0)
[2016-09-09 11:31] LABS: ALB/GLOB RATIO 0.9 (1.1-1.8); ALBUMIN 3.4 g/dL (3.0-4.8); CALCIUM 9.3 mg/dL (8.4-10.5)
--- NOTE | 2016-09-09 11:36 | CP.PCM.PN ---
Subjective - Date & Time of Evaluation Date of Evaluation: 09/09/16 Time of Evaluation: 08:00 - Subjective Subjective: WEAKNESS Objective - Vital Signs/Intake and Output Vital Signs (last 24 hours): Temp Pulse Resp BP Pulse Ox 98.1 F 112 H 20 125/53 L 99 09/09/16 07:34 09/09/16 07:34 09/09/16 07:34 09/09/16 09:12 09/09/16 07:34 Intake and Output: 09/09/16 09/09/16 06:59 18:59 Intake Total 600 Balance 600 - Medications Medications: Current Medications Acetaminophen (Tylenol 650mg/20.3ml Solution Ud) 650 mg PO Q6H PRN PRN Reason: fever Last Admin: 09/08/16 05:11 Dose: 650 mg Aspirin (Ecotrin) 81 mg PO DAILY [facility] Last Admin: 09/09/16 09:12 Dose: 81 mg Cadexomer Iodine (Iodosorb) 0 gm TOP DAILY [facility] Last Admin: 09/09/16 09:13 Dose: Not Given Ferrous Gluconate (Fergon) 324 mg PO TID [facility] Heparin Sodium (Porcine) (Heparin) 5,000 units SC Q12 [facility] PRN Reason: Protocol Last Admin: 09/09/16 09:13 Dose: 5,000 units Sodium Chloride (Sodium Chloride 0.9%) 1,000 mls @ 100 mls/hr IV .Q10H [facility] Last Admin: 09/08/16 22:38 Dose: 100 mls/hr Meropenem 1g/NS 100mL IVPB (Meropenem 1g/Ns 100ml Ivpb) 1 gm in 100 mls @ 100 mls/hr IVPB Q12 [facility] PRN Reason: Protocol Stop: 09/17/16 10:01 Last Admin: 09/09/16 09:12 Dose: 100 mls/hr Insulin Detemir (Levemir) 10 unit SC HS [facility] Last Admin: 09/08/16 22:13 Dose: 10 unit Insulin Human Regular (Humulin R Med) 0 units SC ACHS [facility] PRN Reason: Protocol Last Admin: 09/09/16 08:43 Dose: Not Given Megestrol Acetate (Megace) 40 mg PO DAILY [facility] Last Admin: 09/09/16 09:12 Dose: 40 mg Metoprolol Succinate (Toprol Xl) 50 mg PO BRK [facility] Last Admin: 09/09/16 09:12 Dose: 50 mg Multivitamins (Thera Tab) 1 tab PO 0800 [facility] Pantoprazole Sodium (Protonix Inj) 40 mg IVP DAILY [facility] Last Admin: 09/09/16 09:14 Dose: 40 mg Sodium Bicarbonate (Sodium Bicarbonate Tab) 1,300 mg PO TID [facility] Last Admin: 09/09/16 09:11 Dose: 1,300 mg - Labs Labs: 09/08/16 06:55 09/08/16 07:00 PT 11.4 Seconds (9.9-11.8) 09/07/16 16:30 INR 1.06 (0.93-1.08) 09/07/16 16:30 APTT 32.6 Seconds (23.7-30.8) H 09/07/16 16:30 - Constitutional Appears: Well - Head Exam Head Exam: ATRAUMATIC, NORMAL INSPECTION, NORMOCEPHALIC - Eye Exam Eye Exam: EOMI, Normal appearance, PERRL Pupil Exam: NORMAL ACCOMODATION, PERRL - ENT Exam ENT Exam: Mucous Membranes Moist, Normal Exam - Neck Exam Neck Exam: Full ROM, Normal Inspection. absent: Lymphadenopathy - Respiratory Exam Respiratory Exam: Clear to Ausculation Bilateral, NORMAL BREATHING PATTERN - Cardiovascular Exam Cardiovascular Exam: REGULAR RHYTHM, +S1, +S2. absent: Murmur - GI/Abdominal Exam GI & Abdominal Exam: Soft, Normal Bowel Sounds. absent: Tenderness - Rectal Exam Rectal Exam: NORMAL INSPECTION - Exam Exam: Circumcision, NORMAL INSPECTION External exam: NORMAL EXTERNAL EXAM Speculum exam: NORMAL SPECULUM EXAM Bimanual exam: NORMAL BIMANUAL EXAM - Extremities Exam Extremities Exam: Full ROM, Normal Capillary Refill, Normal Inspection. absent : Joint Swelling, Pedal Edema - Back Exam Back Exam: NORMAL INSPECTION - Neurological Exam Neurological Exam: Alert, Awake, CN II-XII Intact, Normal Gait, Oriented x3 - Psychiatric Exam Psychiatric exam: Normal Affect, Normal Mood - Skin Skin Exam: Dry, Intact, Normal Color, Warm Assessment and Plan (1) Sepsis affecting skin Status: Acute (2) Cellulitis Status: Acute (3) Diabetic foot ulcer Status: Acute (4) Diabetic neuropathy Status: Active (5) Osteomyelitis of left foot Status: Acute (6) Sedimentation rate elevation Status: Acute (7) CRP elevated Status: Acute - Assessment and Plan (Free Text) Plan: MERR/GiseleYVOX
[2016-09-09 11:41] LABS: HEMOGLOBIN 7.7 gm/dL (12.0-16.0)
[2016-09-09 12:16] LABS: COMPLEMENT C4 25.6 mg/dL (14.0-44.0)
[2016-09-09] MEDS: Insulin Detemir 100 units/ml Vial (Levemir) SC SCH (21:47)
[2016-09-10] MEDS: Insulin Reg-MEDIUM-Coverage SC SCH ×5 (07:45→21:09)
[2016-09-10] MEDS: Pantoprazole 40 mg Susp UD PO SCH (07:46)
[2016-09-10 07:51] LABS: BASO # 0.01 K/mm3 (0.0-2.0); BASO % 0.3 % (0.0-3.0); EOS # 0.2 (0.0-0.7); EOS % 5.3 % (1.5-5.0); GRAN # 1.74 (1.4-6.5); GRAN % 48.9 % (50.0-68.0); LYMPH # 1.1 (1.2-3.4); LYMPH % 31.5 % (22.0-35.0); MEAN CELL VOLUME 92.8 fL (80.0-105.0); MEAN CORPUSCULAR HEMOGLOBIN 28.3 pg (25.0-35.0); MEAN CORPUSCULAR HGB CONC 30.4 g/dl (31.0-37.0); MEAN PLATELET VOLUME 8.9 fl (7.0-11.0); MONO # 0.5 (0.1-0.6); PLATELET COUNT 255 10^3/uL (120.0-450.0); RBC 2.23 10^6/uL (3.5-6.1); RED CELL DISTRIBUTION WIDTH 14.7 % (11.5-14.5); WHITE BLOOD COUNT 3.6 10^3/ul (4.5-11.0)
[2016-09-10 08:03] LABS: ALB/GLOB RATIO 0.9 (1.1-1.8); ALBUMIN 2.8 g/dL (3.0-4.8); CALCIUM 8.8 mg/dL (8.4-10.5); MAGNESIUM 1.6 mg/dL (1.7-2.2)
[2016-09-10 08:07] LABS: HEMOGLOBIN 6.3 gm/dL (12.0-16.0)
[2016-09-10] MEDS ORDERED: Potassium Chloride 20 mEq ER Tab PO ONE (09:29)
[2016-09-10] MEDS ORDERED: Ergocalciferol 50,000 Intl Units Cap PO SCH (09:30)
[2016-09-10] MEDS: Multivitamin Therapeutic Tab PO SCH (10:18)
[2016-09-10] MEDS: Magnesium Oxide 400 mg Tab UD PO SCH (10:19)
[2016-09-10] MEDS: Meropenem 1g/NS 100mL IVPB 1 GM/100 ML PIGGYBACK IVPB SCH ×2 (10:20→21:07)
[2016-09-10] MEDS: Metoprolol Succinate 50 mg XL Tab PO SCH (10:20)
--- NOTE | 2016-09-10 10:27 | CP.PCM.PN ---
Subjective - Date & Time of Evaluation Date of Evaluation: 09/10/16 Time of Evaluation: 10:24 - Subjective Subjective: Follow up Nephrology Consultation: Assessment: Stable Improving Acute Kidney Injury (N17.9) [likely hemodynamic due to current sepsis ] on Chronic Kidney Disease (N18.4) Stage 3 with ? mg proteinuria (R80.9) with biltareal renal cortical atrophy seen on sonogram. Simple cyst Rt kidney hx of FREDY in past Anemia (D64.9), uncontrolled DM with hyperglycemia, HTN (I12.9) non anion gap metabolic acidosis hearing loss, esophageal stenosis left foot cellulitis Plan No acute need for renal replacement therapy at this time. Hypertension control with meds as ordered. Patient not on ACEI/ARB due to elevated creatinine. BP controlled for now continue with IVF. added sodium bicarb 1300 mg TID Monitor Input/Output, daily weights and renal function with basic metabolic panel Check urine analysis, spot protein/creatinine and albumin/creatinine ratio, renal sonogram. Urine for Na, K, chloride Check for 25-OH vitamin D, iPTH, Iron Indices. Check work up as C3, C4, lupus serology, ANCA (MPO and NC-3), serum protein electrophoresis with immunofixation, Hep B and Hep C serology, SCL-70 and anti- centromere antibody consider rheumatology eval once her acute condition resolves to explore multisystem disorder pathology such as scleroderma, vasculitis, MCTD, polychondritis etc Dose meds/antibiotics for reduced GFR 35-40. Avoid fleets enema/magnesium based laxatives. Avoid nephrotoxins/NSAIDs/ iodinated contrast (unless needed emergently) Glycemic control Further work up/management as per primary team. she is anemic, heme follow up. PRBC as per primary team Thanks for allowing me to participate in care of your patient. Will follow patient with you. Please call if any Qs. d/w primary team. Dr Javier Reyes Office: [phone] Reason for consult: elevated creatinine HPI: Pt is a 61 y/o F with hx of diabetes Mellitus ( x 8-9 years), hypertension (?years), hearing loss, esophageal stenosis, chronic anemia admitted with left foot worsening wound infection for last 1-2 days and renal consulted for elevated creatinine. ROS: Denies chest pain, palpitation, shortness of breath, leg swelling Physical Examination: General Appearance: Comfortable, in no acute respiratory distress, co-operative . frail appearing female Vitals reviewed and noted as below Lungs: Normal respiratory rate/effort. Breath sounds bilateral equal and clear Heart: Increased rate. s1s2 normal. No rub or gallop. Extremities: LLE 1+ edema with left foot dressed. scab/ulceration on Rt foot as well, no active drainage there. No varicose veins. b/l hand deformity noted Neurological: Patient is alert, awake and oriented to person, place and time. No focal deficit. Strength bilateral appropriate and equal Skin: Warm and dry. turgor difficulty to ascertain due to her malnourished appearing status. No rash. Palpitation: Normal elasticity for age Abdomen: Abdomen is soft. Bowel sounds +. There is no abdominal tenderness, no guarding/rigidity no organomegaly Psych: normal insight and normal affect/mood MSK: left foot swelling +. b/l hand digits deformity : kidney or bladder not palpable Labs/imaging/EKG reviewed. Past medical history, past surgical history, family history, social history, allergy reviewed and noted as below Family hx: no hx of CKD. Rest non-contributory WORK UP UA: 30 protein trace blood RBC 2-5 and 3+ glucose CXR negative TSAT 6% Serum creatinine 1.9 in 2016 and 1.1 in 2014 Objective - Vital Signs/Intake and Output Vital Signs (last 24 hours): Temp Pulse Resp BP Pulse Ox 98.3 F 100 H 18 134/60 98 09/10/16 08:45 09/10/16 10:20 09/10/16 08:45 09/10/16 10:20 09/10/16 08:45 Intake and Output: 09/10/16 09/10/16 06:59 18:59 Intake Total 120 Balance 120 - Medications Medications: Current Medications Acetaminophen (Tylenol 650mg/20.3ml Solution Ud) 650 mg PO Q6H PRN PRN Reason: fever Last Admin: 09/08/16 05:11 Dose: 650 mg Aspirin (Ecotrin) 81 mg PO DAILY [facility] Last Admin: 09/10/16 10:19 Dose: 81 mg Cadexomer Iodine (Iodosorb) 0 gm TOP DAILY [facility] Last Admin: 09/09/16 09:13 Dose: Not Given Ergocalciferol (Drisdol 50,000 Intl Units Cap) 1 cap PO Q7D [facility] Stop: 10/29/16 09:31 Last Admin: 09/10/16 10:18 Dose: 1 cap Ferrous Gluconate (Fergon) 324 mg PO TID [facility] Last Admin: 09/10/16 10:18 Dose: 324 mg Heparin Sodium (Porcine) (Heparin) 5,000 units SC Q12 [facility] PRN Reason: Protocol Last Admin: 09/10/16 10:16 Dose: 5,000 units Sodium Chloride (Sodium Chloride 0.9%) 1,000 mls @ 100 mls/hr IV .Q10H [facility] Last Admin: 09/08/16 22:38 Dose: 100 mls/hr Meropenem 1g/NS 100mL IVPB (Meropenem 1g/Ns 100ml Ivpb) 1 gm in 100 mls @ 100 mls/hr IVPB Q12 [facility] PRN Reason: Protocol Stop: 09/17/16 10:01 Last Admin: 09/10/16 10:20 Dose: 100 mls/hr Insulin Detemir (Levemir) 10 unit SC HS [facility] Last Admin: 09/09/16 21:47 Dose: 10 unit Insulin Human Regular (Humulin R Med) 0 units SC ACHS [facility] PRN Reason: Protocol Last Admin: 09/10/16 07:45 Dose: Not Given Linezolid (Zyvox) 600 mg PO BID [facility] PRN Reason: Protocol Stop: 10/07/16 18:01 Last Admin: 09/10/16 10:19 Dose: 600 mg Magnesium Oxide (Mag-Ox) 400 mg PO DAILY [facility] Last Admin: 09/10/16 10:19 Dose: 400 mg Megestrol Acetate (Megace) 40 mg PO DAILY [facility] Last Admin: 09/10/16 10:18 Dose: 40 mg Metoprolol Succinate (Toprol Xl) 50 mg PO BRK [facility] Last Admin: 09/10/16 10:20 Dose: 50 mg Multivitamins (Thera Tab) 1 tab PO 0800 [facility] Last Admin: 09/10/16 10:18 Dose: 1 tab Pantoprazole Sodium (Protonix Susp) 40 mg PO 0600 [facility] Last Admin: 09/10/16 07:46 Dose: 40 mg Sodium Bicarbonate (Sodium Bicarbonate Tab) 1,300 mg PO TID [facility] Last Admin: 09/10/16 10:19 Dose: 1,300 mg - Labs Labs: 09/10/16 07:00 09/10/16 07:00 PT 11.4 Seconds (9.9-11.8) 09/07/16 16:30 INR 1.06 (0.93-1.08) 09/07/16 16:30 APTT 32.6 Seconds (23.7-30.8) H 09/07/16 16:30
--- NOTE | 2016-09-10 10:55 | CP.PCM.PN ---
Subjective - Date & Time of Evaluation Date of Evaluation: 09/10/16 Time of Evaluation: 10:00 - Subjective Subjective: seen in chair pleasant no c/o no cp no sob no abd pain eats well Objective - Vital Signs/Intake and Output Vital Signs (last 24 hours): Temp Pulse Resp BP Pulse Ox 98.3 F 100 H 18 134/60 98 09/10/16 08:45 09/10/16 10:20 09/10/16 08:45 09/10/16 10:20 09/10/16 08:45 Intake and Output: 09/10/16 09/10/16 06:59 18:59 Intake Total 120 Balance 120 - Medications Medications: Current Medications Acetaminophen (Tylenol 650mg/20.3ml Solution Ud) 650 mg PO Q6H PRN PRN Reason: fever Last Admin: 09/08/16 05:11 Dose: 650 mg Aspirin (Ecotrin) 81 mg PO DAILY [facility] Last Admin: 09/10/16 10:19 Dose: 81 mg Cadexomer Iodine (Iodosorb) 0 gm TOP DAILY [facility] Last Admin: 09/09/16 09:13 Dose: Not Given Ergocalciferol (Drisdol 50,000 Intl Units Cap) 1 cap PO Q7D [facility] Stop: 10/29/16 09:31 Last Admin: 09/10/16 10:18 Dose: 1 cap Ferrous Gluconate (Fergon) 324 mg PO TID [facility] Last Admin: 09/10/16 10:18 Dose: 324 mg Furosemide (Lasix) 40 mg IVP ONCE ONE Stop: 09/10/16 10:51 Heparin Sodium (Porcine) (Heparin) 5,000 units SC Q12 [facility] PRN Reason: Protocol Last Admin: 09/10/16 10:16 Dose: 5,000 units Sodium Chloride (Sodium Chloride 0.9%) 1,000 mls @ 100 mls/hr IV .Q10H [facility] Last Admin: 09/08/16 22:38 Dose: 100 mls/hr Meropenem 1g/NS 100mL IVPB (Meropenem 1g/Ns 100ml Ivpb) 1 gm in 100 mls @ 100 mls/hr IVPB Q12 [facility] PRN Reason: Protocol Stop: 09/17/16 10:01 Last Admin: 09/10/16 10:20 Dose: 100 mls/hr Potassium Chloride (Potassium Chloride 10 Meq/100 Ml) 10 meq in 100 mls @ 100 mls/hr IVPB ONCE ONE Stop: 09/10/16 11:48 Insulin Detemir (Levemir) 10 unit SC HS [facility] Last Admin: 09/09/16 21:47 Dose: 10 unit Insulin Human Regular (Humulin R Med) 0 units SC ACHS [facility] PRN Reason: Protocol Last Admin: 09/10/16 07:45 Dose: Not Given Linezolid (Zyvox) 600 mg PO BID [facility] PRN Reason: Protocol Stop: 10/07/16 18:01 Last Admin: 09/10/16 10:19 Dose: 600 mg Magnesium Oxide (Mag-Ox) 400 mg PO DAILY [facility] Last Admin: 09/10/16 10:19 Dose: 400 mg Megestrol Acetate (Megace) 40 mg PO DAILY [facility] Last Admin: 09/10/16 10:18 Dose: 40 mg Metoprolol Succinate (Toprol Xl) 50 mg PO BRK [facility] Last Admin: 09/10/16 10:20 Dose: 50 mg Multivitamins (Thera Tab) 1 tab PO 0800 [facility] Last Admin: 09/10/16 10:18 Dose: 1 tab Pantoprazole Sodium (Protonix Susp) 40 mg PO 0600 [facility] Last Admin: 09/10/16 07:46 Dose: 40 mg Sodium Bicarbonate (Sodium Bicarbonate Tab) 1,300 mg PO TID [facility] Last Admin: 09/10/16 10:19 Dose: 1,300 mg - Labs Labs: 09/10/16 07:00 09/10/16 07:00 PT 11.4 Seconds (9.9-11.8) 09/07/16 16:30 INR 1.06 (0.93-1.08) 09/07/16 16:30 APTT 32.6 Seconds (23.7-30.8) H 09/07/16 16:30 - Constitutional Appears: No Acute Distress - Head Exam Head Exam: ATRAUMATIC, NORMAL INSPECTION, NORMOCEPHALIC - ENT Exam ENT Exam: Mucous Membranes Moist - Respiratory Exam Respiratory Exam: Decreased Breath Sounds, Clear to Ausculation Bilateral - Cardiovascular Exam Cardiovascular Exam: REGULAR RHYTHM - GI/Abdominal Exam GI & Abdominal Exam: Soft, Normal Bowel Sounds - Extremities Exam Extremities Exam: Normal Inspection - Neurological Exam Neurological Exam: Alert - Skin Skin Exam: Warm Assessment and Plan - Assessment and Plan (Free Text) Assessment: anemia down to a 6. lle cellulitis dm yoandy low k Plan: went over meds labs discussed w/ renal will transfuse 2 units prbc lasix 1 time dose inbetween replace k recheck labs cont w/ iv abs
--- NOTE | 2016-09-10 11:38 | CP.PCM.PN ---
Subjective - Date & Time of Evaluation Date of Evaluation: 09/10/16 Time of Evaluation: 10:00 - Subjective Subjective: DOING BETTER Objective - Vital Signs/Intake and Output Vital Signs (last 24 hours): Temp Pulse Resp BP Pulse Ox 98.3 F 100 H 18 134/60 98 09/10/16 08:45 09/10/16 10:20 09/10/16 08:45 09/10/16 10:20 09/10/16 08:45 Intake and Output: 09/10/16 09/10/16 06:59 18:59 Intake Total 120 Balance 120 - Medications Medications: Current Medications Acetaminophen (Tylenol 650mg/20.3ml Solution Ud) 650 mg PO Q6H PRN PRN Reason: fever Last Admin: 09/08/16 05:11 Dose: 650 mg Aspirin (Ecotrin) 81 mg PO DAILY [facility] Last Admin: 09/10/16 10:19 Dose: 81 mg Cadexomer Iodine (Iodosorb) 0 gm TOP DAILY [facility] Last Admin: 09/09/16 09:13 Dose: Not Given Ergocalciferol (Drisdol 50,000 Intl Units Cap) 1 cap PO Q7D [facility] Stop: 10/29/16 09:31 Last Admin: 09/10/16 10:18 Dose: 1 cap Ferrous Gluconate (Fergon) 324 mg PO TID [facility] Last Admin: 09/10/16 10:18 Dose: 324 mg Heparin Sodium (Porcine) (Heparin) 5,000 units SC Q12 [facility] PRN Reason: Protocol Last Admin: 09/10/16 10:16 Dose: 5,000 units Sodium Chloride (Sodium Chloride 0.9%) 1,000 mls @ 100 mls/hr IV .Q10H [facility] Last Admin: 09/08/16 22:38 Dose: 100 mls/hr Meropenem 1g/NS 100mL IVPB (Meropenem 1g/Ns 100ml Ivpb) 1 gm in 100 mls @ 100 mls/hr IVPB Q12 [facility] PRN Reason: Protocol Stop: 09/17/16 10:01 Last Admin: 09/10/16 10:20 Dose: 100 mls/hr Potassium Chloride (Potassium Chloride 10 Meq/100 Ml) 10 meq in 100 mls @ 100 mls/hr IVPB ONCE ONE Stop: 09/10/16 11:48 Insulin Detemir (Levemir) 10 unit SC [facility] Last Admin: 09/09/16 21:47 Dose: 10 unit Insulin Human Regular (Humulin R Med) 0 units SC [facility] PRN Reason: Protocol Last Admin: 09/10/16 07:45 Dose: Not Given Magnesium Oxide (Mag-Ox) 400 mg PO DAILY [facility] Last Admin: 09/10/16 10:19 Dose: 400 mg Megestrol Acetate (Megace) 40 mg PO DAILY [facility] Last Admin: 09/10/16 10:18 Dose: 40 mg Metoprolol Succinate (Toprol Xl) 50 mg PO BRK [facility] Last Admin: 09/10/16 10:20 Dose: 50 mg Multivitamins (Thera Tab) 1 tab PO 0800 [facility] Last Admin: 09/10/16 10:18 Dose: 1 tab Pantoprazole Sodium (Protonix Susp) 40 mg PO 0600 [facility] Last Admin: 09/10/16 07:46 Dose: 40 mg Sodium Bicarbonate (Sodium Bicarbonate Tab) 1,300 mg PO TID [facility] Last Admin: 09/10/16 10:19 Dose: 1,300 mg - Labs Labs: 09/10/16 07:00 09/10/16 07:00 PT 11.4 Seconds (9.9-11.8) 09/07/16 16:30 INR 1.06 (0.93-1.08) 09/07/16 16:30 APTT 32.6 Seconds (23.7-30.8) H 09/07/16 16:30 - Constitutional Appears: Well - Head Exam Head Exam: ATRAUMATIC, NORMAL INSPECTION, NORMOCEPHALIC - Eye Exam Eye Exam: EOMI, Normal appearance, PERRL Pupil Exam: NORMAL ACCOMODATION, PERRL - ENT Exam ENT Exam: Mucous Membranes Moist, Normal Exam - Neck Exam Neck Exam: Full ROM, Normal Inspection. absent: Lymphadenopathy - Respiratory Exam Respiratory Exam: Clear to Ausculation Bilateral, NORMAL BREATHING PATTERN - Cardiovascular Exam Cardiovascular Exam: REGULAR RHYTHM, +S1, +S2. absent: Murmur - GI/Abdominal Exam GI & Abdominal Exam: Soft, Normal Bowel Sounds. absent: Tenderness - Rectal Exam Rectal Exam: NORMAL INSPECTION - Exam Exam: Circumcision, NORMAL INSPECTION External exam: NORMAL EXTERNAL EXAM Speculum exam: NORMAL SPECULUM EXAM Bimanual exam: NORMAL BIMANUAL EXAM - Extremities Exam Extremities Exam: Full ROM, Normal Capillary Refill, Normal Inspection. absent : Joint Swelling, Pedal Edema - Back Exam Back Exam: NORMAL INSPECTION - Neurological Exam Neurological Exam: Alert, Awake, CN II-XII Intact, Normal Gait, Oriented x3 - Psychiatric Exam Psychiatric exam: Normal Affect, Normal Mood - Skin Skin Exam: Dry, Intact, Normal Color, Warm Assessment and Plan (1) Sepsis affecting skin Status: Acute (2) Cellulitis Status: Acute (3) Diabetic foot ulcer Status: Acute (4) Diabetic neuropathy Status: Active (5) Osteomyelitis of left foot Status: Acute (6) Sedimentation rate elevation Status: Acute (7) CRP elevated Status: Acute (8) Streptococcus group B infection Status: Acute (9) Streptococcus agalactiae infection Status: Acute - Assessment and Plan (Free Text) Plan: D/C ZYVOX 4 -6 WKS OF MERR WKLY SED CRP CBC SMA18
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
--- NOTE | 2016-09-10 14:12 | CP.PCM.PN ---
Subjective - Date & Time of Evaluation Date of Evaluation: 09/10/16 Time of Evaluation: 14:00 - Subjective Subjective: Patient is anemic,has orders for blood transfusion,needs consent for the same. Objective - Vital Signs/Intake and Output Vital Signs (last 24 hours): Temp Pulse Resp BP Pulse Ox 98.3 F 100 H 18 134/60 98 09/10/16 08:45 09/10/16 10:20 09/10/16 08:45 09/10/16 10:20 09/10/16 08:45 Intake and Output: 09/10/16 09/10/16 06:59 18:59 Intake Total 120 Balance 120 - Medications Medications: Current Medications Acetaminophen (Tylenol 650mg/20.3ml Solution Ud) 650 mg PO Q6H PRN PRN Reason: fever Last Admin: 09/08/16 05:11 Dose: 650 mg Aspirin (Ecotrin) 81 mg PO DAILY [facility] Last Admin: 09/10/16 10:19 Dose: 81 mg Cadexomer Iodine (Iodosorb) 0 gm TOP DAILY [facility] Last Admin: 09/09/16 09:13 Dose: Not Given Ergocalciferol (Drisdol 50,000 Intl Units Cap) 1 cap PO Q7D [facility] Stop: 10/29/16 09:31 Last Admin: 09/10/16 10:18 Dose: 1 cap Ferrous Gluconate (Fergon) 324 mg PO TID [facility] Last Admin: 09/10/16 10:18 Dose: 324 mg Heparin Sodium (Porcine) (Heparin) 5,000 units SC Q12 [facility] PRN Reason: Protocol Last Admin: 09/10/16 10:16 Dose: 5,000 units Sodium Chloride (Sodium Chloride 0.9%) 1,000 mls @ 100 mls/hr IV .Q10H [facility] Last Admin: 09/08/16 22:38 Dose: 100 mls/hr Meropenem 1g/NS 100mL IVPB (Meropenem 1g/Ns 100ml Ivpb) 1 gm in 100 mls @ 100 mls/hr IVPB Q12 [facility] PRN Reason: Protocol Stop: 09/17/16 10:01 Last Admin: 09/10/16 10:20 Dose: 100 mls/hr Iron Sucrose 100 mg/ Sodium (Chloride) 105 mls @ 210 mls/hr IVPB DAILY [facility] Stop: 09/15/16 12:01 Insulin Detemir (Levemir) 10 unit SC [facility] Last Admin: 09/09/16 21:47 Dose: 10 unit Insulin Human Regular (Humulin R Med) 0 units SC [facility] PRN Reason: Protocol Last Admin: 09/10/16 07:45 Dose: Not Given Magnesium Oxide (Mag-Ox) 400 mg PO DAILY [facility] Last Admin: 09/10/16 10:19 Dose: 400 mg Megestrol Acetate (Megace) 40 mg PO DAILY [facility] Last Admin: 09/10/16 10:18 Dose: 40 mg Metoprolol Succinate (Toprol Xl) 50 mg PO BRK [facility] Last Admin: 09/10/16 10:20 Dose: 50 mg Multivitamins (Thera Tab) 1 tab PO 0800 [facility] Last Admin: 09/10/16 10:18 Dose: 1 tab Pantoprazole Sodium (Protonix Susp) 40 mg PO 0600 [facility] Last Admin: 09/10/16 07:46 Dose: 40 mg Sodium Bicarbonate (Sodium Bicarbonate Tab) 1,300 mg PO TID [facility] Last Admin: 09/10/16 10:19 Dose: 1,300 mg - Labs Labs: 09/10/16 07:00 09/10/16 07:00 PT 11.4 Seconds (9.9-11.8) 09/07/16 16:30 INR 1.06 (0.93-1.08) 09/07/16 16:30 APTT 32.6 Seconds (23.7-30.8) H 09/07/16 16:30 - Constitutional Appears: No Acute Distress Assessment and Plan - Assessment and Plan (Free Text) Assessment: Anemia Plan: Explained to patient about her anemic state,about the need for blood transfusion and its risks and benefits. Patient states she understood what she was told,then signed consent for the same.
[2016-09-10] MEDS: CADEXOMER IODINE 0.9% GEL 10G TOP SCH (15:03)
[2016-09-10] MEDS: Sodium Chloride 0.9% 1,000 ML IV SCH (21:06)
[2016-09-10] MEDS: Insulin Detemir 100 units/ml Vial (Levemir) SC SCH (21:07)
[2016-09-11] MEDS: Sodium Chloride 0.9% 1,000 ML IV SCH ×2 (01:06)
[2016-09-11] MEDS: Pantoprazole 40 mg Susp UD PO SCH (05:28)
[2016-09-11 06:05] LABS: BASO # 0.02 K/mm3 (0.0-2.0); BASO % 0.3 % (0.0-3.0); EOS # 0.3 (0.0-0.7); EOS % 4.9 % (1.5-5.0); GRAN # 3.14 (1.4-6.5); GRAN % 52.9 % (50.0-68.0); HEMOGLOBIN 11.8 gm/dL (12.0-16.0); LYMPH # 1.7 (1.2-3.4); LYMPH % 29.1 % (22.0-35.0); MEAN CELL VOLUME 88.3 fL (80.0-105.0); MEAN CORPUSCULAR HEMOGLOBIN 29.5 pg (25.0-35.0); MEAN CORPUSCULAR HGB CONC 33.4 g/dl (31.0-37.0); MEAN PLATELET VOLUME 9.5 fl (7.0-11.0); MONO # 0.8 (0.1-0.6); MONO % 12.8 % (1.0-6.0); PLATELET COUNT 265 10^3/uL (120.0-450.0); RED CELL DISTRIBUTION WIDTH 15.6 % (11.5-14.5); WHITE BLOOD COUNT 5.9 10^3/ul (4.5-11.0)
[2016-09-11 06:30] LABS: ALBUMIN 3.3 g/dL (3.0-4.8); MAGNESIUM 1.4 mg/dL (1.7-2.2)
[2016-09-11 08:27] LABS: HEPATITIS B SURFACE AG NEGATIVE (NEGATIVE)
[2016-09-11 08:32] LABS: HEPATITIS B CORE AB NEGATIVE (NEGATIVE)
[2016-09-11 08:44] LABS: HEPATITIS C ANTIBODY NEGATIVE (NEGATIVE)
[2016-09-11] MEDS: Meropenem 1g/NS 100mL IVPB 1 GM/100 ML PIGGYBACK IVPB SCH ×2 (09:33→21:32)
[2016-09-11] MEDS: Magnesium Oxide 400 mg Tab UD PO SCH (09:34)
[2016-09-11] MEDS: Metoprolol Succinate 50 mg XL Tab PO SCH (09:35)
[2016-09-11] MEDS: CADEXOMER IODINE 0.9% GEL 10G TOP SCH (09:36)
[2016-09-11] MEDS: Insulin Reg-MEDIUM-Coverage SC SCH ×4 (09:36→21:32)
[2016-09-11] MEDS: Multivitamin Therapeutic Tab PO SCH (09:37)
--- NOTE | 2016-09-11 10:26 | CP.PCM.PN ---
Subjective - Date & Time of Evaluation Date of Evaluation: 09/11/16 Time of Evaluation: 08:45 - Subjective Subjective: BETTER Objective - Vital Signs/Intake and Output Vital Signs (last 24 hours): Temp Pulse Resp BP Pulse Ox 98.0 F 104 H 20 136/77 97 09/11/16 07:30 09/11/16 07:30 09/11/16 07:30 09/11/16 09:35 09/11/16 07:30 Intake and Output: 09/11/16 09/11/16 06:59 18:59 Intake Total 1255 Output Total 250 Balance 1005 - Medications Medications: Current Medications Acetaminophen (Tylenol 650mg/20.3ml Solution Ud) 650 mg PO Q6H PRN PRN Reason: fever Last Admin: 09/08/16 05:11 Dose: 650 mg Aspirin (Ecotrin) 81 mg PO DAILY [facility] Last Admin: 09/11/16 09:34 Dose: 81 mg Cadexomer Iodine (Iodosorb) 0 gm TOP DAILY [facility] Last Admin: 09/11/16 09:36 Dose: 1 gm Ergocalciferol (Drisdol 50,000 Intl Units Cap) 1 cap PO Q7D [facility] Stop: 10/29/16 09:31 Last Admin: 09/10/16 10:18 Dose: 1 cap Ferrous Gluconate (Fergon) 324 mg PO TID [facility] Last Admin: 09/11/16 09:34 Dose: 324 mg Heparin Sodium (Porcine) (Heparin) 5,000 units SC Q12 [facility] PRN Reason: Protocol Last Admin: 09/11/16 09:36 Dose: 5,000 units Sodium Chloride (Sodium Chloride 0.9%) 1,000 mls @ 100 mls/hr IV .Q10H [facility] Last Admin: 09/11/16 01:06 Dose: 100 mls/hr Meropenem 1g/NS 100mL IVPB (Meropenem 1g/Ns 100ml Ivpb) 1 gm in 100 mls @ 100 mls/hr IVPB Q12 [facility] PRN Reason: Protocol Stop: 09/17/16 10:01 Last Admin: 09/11/16 09:33 Dose: 100 mls/hr Iron Sucrose 100 mg/ Sodium (Chloride) 105 mls @ 210 mls/hr IVPB DAILY [facility] Stop: 09/15/16 12:01 Last Admin: 09/11/16 09:37 Dose: 210 mls/hr Insulin Detemir (Levemir) 10 unit SC [facility] Last Admin: 09/10/16 21:07 Dose: 10 unit Insulin Human Regular (Humulin R Med) 0 units SC [facility] PRN Reason: Protocol Last Admin: 09/11/16 09:36 Dose: 1 units Magnesium Oxide (Mag-Ox) 400 mg PO DAILY [facility] Last Admin: 09/11/16 09:34 Dose: 400 mg Megestrol Acetate (Megace) 40 mg PO DAILY [facility] Last Admin: 09/11/16 09:35 Dose: 40 mg Metoprolol Succinate (Toprol Xl) 50 mg PO BRK [facility] Last Admin: 09/11/16 09:35 Dose: 50 mg Multivitamins (Thera Tab) 1 tab PO 0800 [facility] Last Admin: 09/11/16 09:37 Dose: 1 tab Pantoprazole Sodium (Protonix Susp) 40 mg PO 0600 [facility] Last Admin: 09/11/16 05:28 Dose: Not Given Sodium Bicarbonate (Sodium Bicarbonate Tab) 1,300 mg PO TID [facility] Last Admin: 09/11/16 09:33 Dose: 1,300 mg - Labs Labs: 09/11/16 05:50 09/11/16 05:50 PT 11.4 Seconds (9.9-11.8) 09/07/16 16:30 INR 1.06 (0.93-1.08) 09/07/16 16:30 APTT 32.6 Seconds (23.7-30.8) H 09/07/16 16:30 - Constitutional Appears: Well - Head Exam Head Exam: ATRAUMATIC, NORMAL INSPECTION, NORMOCEPHALIC - Eye Exam Eye Exam: EOMI, Normal appearance, PERRL Pupil Exam: NORMAL ACCOMODATION, PERRL - ENT Exam ENT Exam: Mucous Membranes Moist, Normal Exam - Neck Exam Neck Exam: Full ROM, Normal Inspection. absent: Lymphadenopathy - Respiratory Exam Respiratory Exam: Clear to Ausculation Bilateral, NORMAL BREATHING PATTERN - Cardiovascular Exam Cardiovascular Exam: REGULAR RHYTHM, +S1, +S2. absent: Murmur - GI/Abdominal Exam GI & Abdominal Exam: Soft, Normal Bowel Sounds. absent: Tenderness - Rectal Exam Rectal Exam: NORMAL INSPECTION - Exam Exam: Circumcision, NORMAL INSPECTION External exam: NORMAL EXTERNAL EXAM Speculum exam: NORMAL SPECULUM EXAM Bimanual exam: NORMAL BIMANUAL EXAM - Extremities Exam Extremities Exam: Full ROM, Normal Capillary Refill, Normal Inspection. absent : Joint Swelling, Pedal Edema - Back Exam Back Exam: NORMAL INSPECTION - Neurological Exam Neurological Exam: Alert, Awake, CN II-XII Intact, Normal Gait, Oriented x3 - Psychiatric Exam Psychiatric exam: Normal Affect, Normal Mood - Skin Skin Exam: Dry, Intact, Normal Color, Warm Assessment and Plan (1) Sepsis affecting skin Status: Acute (2) Cellulitis Status: Acute (3) Diabetic foot ulcer Status: Acute (4) Diabetic neuropathy Status: Active (5) Osteomyelitis of left foot Status: Acute (6) Sedimentation rate elevation Status: Acute (7) CRP elevated Status: Acute (8) Streptococcus group B infection Status: Acute (9) Streptococcus agalactiae infection Status: Acute - Assessment and Plan (Free Text) Plan: MERR FOR 4 - 6 WEEKS WEEKLY SED CRP CBC [id number]
[2016-09-11] MEDS ORDERED: Magnesium Sulfate 2 GM in Sodium Chloride 0.9% 100 ML IVPB ONE (10:52)
[2016-09-11] MEDS ORDERED: Sodium Chloride 0.45% 1,000 ML IV SCH (11:00)
--- NOTE | 2016-09-11 11:12 | CP.PCM.PN ---
Addendum entered and electronically signed by Terrie Lai DPM 09/11/16 11: 13: pt to ambulate in surgical shoe surgical shoe ordered Original Note: <Terrie Lai - Last Filed: 09/11/16 11:08> Subjective - Date & Time of Evaluation Date of Evaluation: 09/11/16 Time of Evaluation: 11:08 - Subjective Subjective: 61 year old female was seen at bedside with attending Dr. Raymond for left foot cellulitis and sub met 1 ulceration. Patient seen resting comfortably, AAOx3 and NAD. Patient denies any acute events overnight. Patient reports continued tenderness to her left foot. She denies any n/v/f/c/sob/cp. No other pedal complaints at this time. Patient states that when she is discharged, she will go home and continue IV abx. Objective - Vital Signs/Intake and Output Vital Signs (last 24 hours): Temp Pulse Resp BP Pulse Ox 98.0 F 104 H 20 136/77 97 09/11/16 07:30 09/11/16 07:30 09/11/16 07:30 09/11/16 09:35 09/11/16 07:30 Intake and Output: 09/11/16 09/11/16 06:59 18:59 Intake Total 1255 Output Total 250 Balance 1005 - Medications Medications: Current Medications Acetaminophen (Tylenol 650mg/20.3ml Solution Ud) 650 mg PO Q6H PRN PRN Reason: fever Last Admin: 09/08/16 05:11 Dose: 650 mg Aspirin (Ecotrin) 81 mg PO DAILY [facility] Last Admin: 09/11/16 09:34 Dose: 81 mg Cadexomer Iodine (Iodosorb) 0 gm TOP DAILY [facility] Last Admin: 09/11/16 09:36 Dose: 1 gm Ergocalciferol (Drisdol 50,000 Intl Units Cap) 1 cap PO Q7D [facility] Stop: 10/29/16 09:31 Last Admin: 09/10/16 10:18 Dose: 1 cap Ferrous Gluconate (Fergon) 324 mg PO TID [facility] Last Admin: 09/11/16 09:34 Dose: 324 mg Heparin Sodium (Porcine) (Heparin) 5,000 units SC Q12 [facility] PRN Reason: Protocol Last Admin: 09/11/16 09:36 Dose: 5,000 units Meropenem 1g/NS 100mL IVPB (Meropenem 1g/Ns 100ml Ivpb) 1 gm in 100 mls @ 100 mls/hr IVPB Q12 [facility] PRN Reason: Protocol Stop: 09/17/16 10:01 Last Admin: 09/11/16 09:33 Dose: 100 mls/hr Iron Sucrose 100 mg/ Sodium (Chloride) 105 mls @ 210 mls/hr IVPB DAILY [facility] Stop: 09/15/16 12:01 Last Admin: 09/11/16 09:37 Dose: 210 mls/hr Sodium Chloride (Sodium Chloride 0.45%) 1,000 mls @ 75 mls/hr IV .[id number] [facility] Stop: 09/14/16 11:01 Magnesium Sulfate 2 gm/ Sodium (Chloride) 104 mls @ 102 mls/hr IVPB ONCE ONE Stop: 09/11/16 11:53 Insulin Detemir (Levemir) 10 unit SC HS [facility] Last Admin: 09/10/16 21:07 Dose: 10 unit Insulin Human Regular (Humulin R Med) 0 units SC ACHS [facility] PRN Reason: Protocol Last Admin: 09/11/16 09:36 Dose: 1 units Magnesium Oxide (Mag-Ox) 400 mg PO DAILY [facility] Last Admin: 09/11/16 09:34 Dose: 400 mg Megestrol Acetate (Megace) 40 mg PO DAILY [facility] Last Admin: 09/11/16 09:35 Dose: 40 mg Metoprolol Succinate (Toprol Xl) 50 mg PO BRK [facility] Last Admin: 09/11/16 09:35 Dose: 50 mg Multivitamins (Thera Tab) 1 tab PO 0800 [facility] Last Admin: 09/11/16 09:37 Dose: 1 tab Pantoprazole Sodium (Protonix Susp) 40 mg PO 0600 [facility] Last Admin: 09/11/16 05:28 Dose: Not Given Sodium Bicarbonate (Sodium Bicarbonate Tab) 1,300 mg PO TID [facility] Last Admin: 09/11/16 09:33 Dose: 1,300 mg - Labs Labs: 09/11/16 05:50 09/11/16 05:50 PT 11.4 Seconds (9.9-11.8) 09/07/16 16:30 INR 1.06 (0.93-1.08) 09/07/16 16:30 APTT 32.6 Seconds (23.7-30.8) H 09/07/16 16:30 - Constitutional Appears: Well, Non-toxic, No Acute Distress - Extremities Exam Additional comments: Left foot focused exam: VASC: DP and PT pulses are palpable 2/4, APPLICATIONS SUPPORT ENGINEER: < 3 sec x 4, TG: warm to cool, no pitting or non-pitting edema noted, superficial erythema noted surrounding forefoot DERM: superficial wound on plantar 1st metatarsal head with hyperkeratotic rim, wound base is necrotic with fibrotic border, no malodor, no drainage noted, no probe to bone, no undermining or tunneling noted, superficial epidermal layer shedding noted, localized erythema noted on the dorsum of the L forefoot NEURO: Gross sensation intact ORTHO: pain on palpation of the lesion site, L foot hallux amputation, contracted digits 2-4 noted - Neurological Exam Neurological Exam: Alert, Awake, Oriented x3 - Psychiatric Exam Psychiatric exam: Normal Affect, Normal Mood Assessment and Plan - Assessment and Plan (Free Text) Assessment: 61 year old female with PMHx of Diabetes mellitus type 2, anemia, peripheral arterial disease, GERD, esophageal stenosis, hypertension, chronic kidney disease, osteomyelitis, CAD seen at bedside for left foot cellulitis and open ulceration Plan: Pt seen at bedside with Dr. Raymond chart, labs, vitals reviewed Continue IV abx as per ID; meropenem X-rays reviewed (no significant soft tissue edema or gross abnormalities noted) MRI results obtained: marrow edema 1st met, could be suggestive of early OM left foot dressed with adaptic, 4x4, ABD, kerlix santyl ordered- to be applied to plantar ulcer, bactroban ordered- to be applied to dorsal foot upon D/C patient to have home nursing change dressing on , F, pt to [facility] on Sunday Podiatry will continue to follow the pt while in-house <Jose Raymond - Last Filed: 09/12/16 08:11> Objective - Vital Signs/Intake and Output Vital Signs (last 24 hours): Temp Pulse Resp BP Pulse Ox 98.8 F 99 H 18 142/74 96 09/12/16 08:10 09/12/16 08:10 09/12/16 08:10 09/12/16 08:10 09/12/16 08:10 Intake and Output: 09/12/16 09/12/16 06:59 18:59 Intake Total 660 Output Total 1 Balance 659 - Medications Medications: Current Medications Acetaminophen (Tylenol 650mg/20.3ml Solution Ud) 650 mg PO Q6H PRN PRN Reason: fever Last Admin: 09/08/16 05:11 Dose: 650 mg Aspirin (Ecotrin) 81 mg PO DAILY [facility] Last Admin: 09/11/16 09:34 Dose: 81 mg Cadexomer Iodine (Iodosorb) 0 gm TOP DAILY [facility] Last Admin: 09/11/16 09:36 Dose: 1 gm Collagenase (Santyl) 0 gm TOP DAILY [facility] Ergocalciferol (Drisdol 50,000 Intl Units Cap) 1 cap PO Q7D [facility] Stop: 10/29/16 09:31 Last Admin: 09/10/16 10:18 Dose: 1 cap Ferrous Gluconate (Fergon) 324 mg PO TID [facility] Last Admin: 09/11/16 17:43 Dose: 324 mg Heparin Sodium (Porcine) (Heparin) 5,000 units SC Q12 [facility] PRN Reason: Protocol Last Admin: 09/11/16 21:30 Dose: 5,000 units Meropenem 1g/NS 100mL IVPB (Meropenem 1g/Ns 100ml Ivpb) 1 gm in 100 mls @ 100 mls/hr IVPB Q12 [facility] PRN Reason: Protocol Stop: 09/17/16 10:01 Last Admin: 09/11/16 21:32 Dose: 100 mls/hr Iron Sucrose 100 mg/ Sodium (Chloride) 105 mls @ 210 mls/hr IVPB DAILY [facility] Stop: 09/15/16 12:01 Last Admin: 09/11/16 09:37 Dose: 210 mls/hr Sodium Chloride (Sodium Chloride 0.45%) 1,000 mls @ 75 mls/hr IV .[id number] [facility] Stop: 09/14/16 11:01 Last Admin: 09/12/16 01:38 Dose: Not Given Insulin Detemir (Levemir) 8 unit SC AMHS [facility] Last Admin: 09/11/16 21:32 Dose: 8 unit Insulin Human Regular (Humulin R Med) 0 units SC ACHS [facility] PRN Reason: Protocol Last Admin: 09/12/16 07:51 Dose: 1 units Magnesium Oxide (Mag-Ox) 400 mg PO DAILY [facility] Last Admin: 09/11/16 09:34 Dose: 400 mg Megestrol Acetate (Megace) 40 mg PO DAILY [facility] Last Admin: 09/11/16 09:35 Dose: 40 mg Metoprolol Succinate (Toprol Xl) 50 mg PO BRK [facility] Last Admin: 09/11/16 09:35 Dose: 50 mg Multivitamins (Thera Tab) 1 tab PO 0800 [facility] Last Admin: 09/11/16 09:37 Dose: 1 tab Mupirocin (Bactroban Ointment) 0 gm TOP BID [facility] Last Admin: 09/11/16 17:42 Dose: 1 applic Pantoprazole Sodium (Protonix Susp) 40 mg PO 0600 [facility] Last Admin: 09/12/16 06:18 Dose: 40 mg Sodium Bicarbonate (Sodium Bicarbonate Tab) 1,300 mg PO TID [facility] Last Admin: 09/11/16 17:43 Dose: 1,300 mg - Labs Labs: 09/11/16 05:50 09/11/16 05:50 PT 11.4 Seconds (9.9-11.8) 09/07/16 16:30 INR 1.06 (0.93-1.08) 09/07/16 16:30 APTT 32.6 Seconds (23.7-30.8) H 09/07/16 16:30 Attending/Attestation - Attestation I have personally seen and examined this patient.: Yes I have fully participated in the care of the patient.: Yes I have reviewed all pertinent clinical information, including history, physical exam and plan: Yes
--- NOTE | 2016-09-11 12:43 | CP.PCM.PN ---
Subjective - Date & Time of Evaluation Date of Evaluation: 09/11/16 Time of Evaluation: 11:00 - Subjective Subjective: Follow up Nephrology Consultation: Assessment: Stable Improving Acute Kidney Injury (N17.9) [likely hemodynamic due to current sepsis ] on Chronic Kidney Disease (N18.4) Stage 3 with ? mg proteinuria (R80.9) with bilateral renal cortical atrophy seen on sonogram. Simple cyst Rt kidney hx of FREDY in past Anemia (D64.9) s/p 2 unit PRBC, uncontrolled DM with hyperglycemia, HTN (I12.9) non anion gap metabolic acidosis hearing loss, esophageal stenosis left foot cellulitis Vit D insufficiency, Hypernatremia, Hypomagnesemia, hypokalemia Plan No acute need for renal replacement therapy at this time. Hypertension control with meds as ordered. Patient not on ACEI/ARB due to elevated creatinine. BP controlled for now continue with IVF but change to 0.45% saline. added sodium bicarb 1300 mg TID Monitor Input/Output, daily weights and renal function with basic metabolic panel Supplement electrolytes Check urine analysis, spot protein/creatinine and albumin/creatinine ratio, renal sonogram. Urine for Na, K, chloride Check for 25-OH vitamin D, iPTH, Iron Indices. Check work up as C3, C4, lupus serology, ANCA (MPO and ND-3), serum protein electrophoresis with immunofixation, Hep B and Hep C serology, SCL-70 and anti- centromere antibody consider rheumatology eval once her acute condition resolves to explore multisystem disorder pathology such as scleroderma, vasculitis, MCTD, polychondritis etc Dose meds/antibiotics for reduced GFR 35-40. Avoid fleets enema/magnesium based laxatives. Avoid nephrotoxins/NSAIDs/ iodinated contrast (unless needed emergently) Glycemic control Further work up/management as per primary team. Thanks for allowing me to participate in care of your patient. Will follow patient with you. Please call if any Qs. d/w primary team. Dr Javier Reyes Office: [phone] Reason for consult: elevated creatinine HPI: Pt is a 61 y/o F with hx of diabetes Mellitus ( x 8-9 years), hypertension (?years), hearing loss, esophageal stenosis, chronic anemia admitted with left foot worsening wound infection for last 1-2 days and renal consulted for elevated creatinine. ROS: Denies chest pain, palpitation, shortness of breath, leg swelling. left foot pain better Physical Examination: General Appearance: Comfortable, in no acute respiratory distress, co-operative . frail appearing female Vitals reviewed and noted as below Lungs: Normal respiratory rate/effort. Breath sounds bilateral equal and clear Heart: Increased rate. s1s2 normal. No rub or gallop. Extremities: LLE 1+ edema with left foot dressed. scab/ulceration on Rt foot as well, no active drainage there. No varicose veins. b/l hand deformity noted Neurological: Patient is alert, awake and oriented to person, place and time. No focal deficit. Strength bilateral appropriate and equal Skin: Warm and dry. turgor difficulty to ascertain due to her malnourished appearing status. No rash. Palpitation: Normal elasticity for age Abdomen: Abdomen is soft. Bowel sounds +. There is no abdominal tenderness, no guarding/rigidity no organomegaly Psych: normal insight and normal affect/mood MSK: left foot swelling +. b/l hand digits deformity : kidney or bladder not palpable Labs/imaging/EKG reviewed. Past medical history, past surgical history, family history, social history, allergy reviewed and noted as below Family hx: no hx of CKD. Rest non-contributory WORK UP UA: 30 protein trace blood RBC 2-5 and 3+ glucose CXR negative TSAT 6% Serum creatinine 1.9 in 2016 and 1.1 in 2014 Objective - Vital Signs/Intake and Output Vital Signs (last 24 hours): Temp Pulse Resp BP Pulse Ox 98.0 F 104 H 20 136/77 97 09/11/16 07:30 09/11/16 07:30 09/11/16 07:30 09/11/16 09:35 09/11/16 07:30 Intake and Output: 09/11/16 09/11/16 06:59 18:59 Intake Total 1255 Output Total 250 Balance 1005 - Medications Medications: Current Medications Acetaminophen (Tylenol 650mg/20.3ml Solution Ud) 650 mg PO Q6H PRN PRN Reason: fever Last Admin: 09/08/16 05:11 Dose: 650 mg Aspirin (Ecotrin) 81 mg PO DAILY [facility] Last Admin: 09/11/16 09:34 Dose: 81 mg Cadexomer Iodine (Iodosorb) 0 gm TOP DAILY [facility] Last Admin: 09/11/16 09:36 Dose: 1 gm Collagenase (Santyl) 0 gm TOP DAILY [facility] Ergocalciferol (Drisdol 50,000 Intl Units Cap) 1 cap PO Q7D [facility] Stop: 10/29/16 09:31 Last Admin: 09/10/16 10:18 Dose: 1 cap Ferrous Gluconate (Fergon) 324 mg PO TID [facility] Last Admin: 09/11/16 09:34 Dose: 324 mg Heparin Sodium (Porcine) (Heparin) 5,000 units SC Q12 [facility] PRN Reason: Protocol Last Admin: 09/11/16 09:36 Dose: 5,000 units Meropenem 1g/NS 100mL IVPB (Meropenem 1g/Ns 100ml Ivpb) 1 gm in 100 mls @ 100 mls/hr IVPB Q12 [facility] PRN Reason: Protocol Stop: 09/17/16 10:01 Last Admin: 09/11/16 09:33 Dose: 100 mls/hr Iron Sucrose 100 mg/ Sodium (Chloride) 105 mls @ 210 mls/hr IVPB DAILY [facility] Stop: 09/15/16 12:01 Last Admin: 09/11/16 09:37 Dose: 210 mls/hr Sodium Chloride (Sodium Chloride 0.45%) 1,000 mls @ 75 mls/hr IV .[id number] [facility] Stop: 09/14/16 11:01 Insulin Detemir (Levemir) 10 unit SC HS [facility] Last Admin: 09/10/16 21:07 Dose: 10 unit Insulin Human Regular (Humulin R Med) 0 units SC ACHS [facility] PRN Reason: Protocol Last Admin: 09/11/16 09:36 Dose: 1 units Magnesium Oxide (Mag-Ox) 400 mg PO DAILY [facility] Last Admin: 09/11/16 09:34 Dose: 400 mg Megestrol Acetate (Megace) 40 mg PO DAILY [facility] Last Admin: 09/11/16 09:35 Dose: 40 mg Metoprolol Succinate (Toprol Xl) 50 mg PO BRK [facility] Last Admin: 09/11/16 09:35 Dose: 50 mg Multivitamins (Thera Tab) 1 tab PO 0800 [facility] Last Admin: 09/11/16 09:37 Dose: 1 tab Mupirocin (Bactroban Ointment) 0 gm TOP BID [facility] Pantoprazole Sodium (Protonix Susp) 40 mg PO 0600 [facility] Last Admin: 09/11/16 05:28 Dose: Not Given Sodium Bicarbonate (Sodium Bicarbonate Tab) 1,300 mg PO TID [facility] Last Admin: 09/11/16 09:33 Dose: 1,300 mg - Labs Labs: 09/11/16 05:50 09/11/16 05:50 PT 11.4 Seconds (9.9-11.8) 09/07/16 16:30 INR 1.06 (0.93-1.08) 09/07/16 16:30 APTT 32.6 Seconds (23.7-30.8) H 09/07/16 16:30
--- NOTE | 2016-09-11 13:48 | CP.PCM.PN ---
Addendum entered and electronically signed by Umesh Benjamin DO 09/11/16 16:07: Patient was seen and examined with Dr. Agee PGY-[address] Galvez. Will need 6 weeks of meropenem per ID for L foot osteo, discussed with CM, scripts for IV abx and weekly CBC and CMP given, pending approval, undergoing work up for transaminitis, discussed case with data communications software consultant Dr. Reyes as well, anemia improved after 2U PRBCs, no acute bleeding, hemodynamically stable. Umesh Benjamin D.O. PGY-2 Original Note: <ASIF AGEE - Last Filed: 09/11/16 16:04> Subjective - Date & Time of Evaluation Date of Evaluation: 09/11/16 Time of Evaluation: 06:45 - Subjective Subjective: Asif Agee D.O. PGY-1, Internal Medicine, [employer] 61 yo F who presented on 09/07/16 for left foot pain and was found to have osteomyelitis. Patient seen and examined at bedside. Today is hospital day 5. No acute events overnight. Today, she denies CP, SOB, F/C, abdominal pain, diarrhea/constipation, calf pain, or focal weakness. Objective - Vital Signs/Intake and Output Vital Signs (last 24 hours): Temp Pulse Resp BP Pulse Ox 98.0 F 104 H 20 136/77 97 09/11/16 07:30 09/11/16 07:30 09/11/16 07:30 09/11/16 09:35 09/11/16 07:30 Intake and Output: 09/11/16 09/11/16 06:59 18:59 Intake Total 1255 Output Total 250 Balance 1005 - Medications Medications: Current Medications Acetaminophen (Tylenol 650mg/20.3ml Solution Ud) 650 mg PO Q6H PRN PRN Reason: fever Last Admin: 09/08/16 05:11 Dose: 650 mg Aspirin (Ecotrin) 81 mg PO DAILY [facility] Last Admin: 09/11/16 09:34 Dose: 81 mg Cadexomer Iodine (Iodosorb) 0 gm TOP DAILY [facility] Last Admin: 09/11/16 09:36 Dose: 1 gm Collagenase (Santyl) 0 gm TOP DAILY [facility] Ergocalciferol (Drisdol 50,000 Intl Units Cap) 1 cap PO Q7D [facility] Stop: 10/29/16 09:31 Last Admin: 09/10/16 10:18 Dose: 1 cap Ferrous Gluconate (Fergon) 324 mg PO TID [facility] Last Admin: 09/11/16 13:03 Dose: 324 mg Heparin Sodium (Porcine) (Heparin) 5,000 units SC Q12 [facility] PRN Reason: Protocol Last Admin: 09/11/16 09:36 Dose: 5,000 units Meropenem 1g/NS 100mL IVPB (Meropenem 1g/Ns 100ml Ivpb) 1 gm in 100 mls @ 100 mls/hr IVPB Q12 [facility] PRN Reason: Protocol Stop: 09/17/16 10:01 Last Admin: 09/11/16 09:33 Dose: 100 mls/hr Iron Sucrose 100 mg/ Sodium (Chloride) 105 mls @ 210 mls/hr IVPB DAILY [facility] Stop: 09/15/16 12:01 Last Admin: 09/11/16 09:37 Dose: 210 mls/hr Sodium Chloride (Sodium Chloride 0.45%) 1,000 mls @ 75 mls/hr IV .[id number] [facility] Stop: 09/14/16 11:01 Insulin Detemir (Levemir) 10 unit SC HS [facility] Last Admin: 09/10/16 21:07 Dose: 10 unit Insulin Human Regular (Humulin R Med) 0 units SC ACHS [facility] PRN Reason: Protocol Last Admin: 09/11/16 12:58 Dose: 8 units Magnesium Oxide (Mag-Ox) 400 mg PO DAILY [facility] Last Admin: 09/11/16 09:34 Dose: 400 mg Megestrol Acetate (Megace) 40 mg PO DAILY [facility] Last Admin: 09/11/16 09:35 Dose: 40 mg Metoprolol Succinate (Toprol Xl) 50 mg PO BRK [facility] Last Admin: 09/11/16 09:35 Dose: 50 mg Multivitamins (Thera Tab) 1 tab PO 0800 [facility] Last Admin: 09/11/16 09:37 Dose: 1 tab Mupirocin (Bactroban Ointment) 0 gm TOP BID [facility] Pantoprazole Sodium (Protonix Susp) 40 mg PO 0600 [facility] Last Admin: 09/11/16 05:28 Dose: Not Given Sodium Bicarbonate (Sodium Bicarbonate Tab) 1,300 mg PO TID [facility] Last Admin: 09/11/16 13:03 Dose: 1,300 mg - Labs Labs: 09/11/16 05:50 09/11/16 05:50 PT 11.4 Seconds (9.9-11.8) 09/07/16 16:30 INR 1.06 (0.93-1.08) 09/07/16 16:30 APTT 32.6 Seconds (23.7-30.8) H 09/07/16 16:30 - Constitutional Appears: Non-toxic, No Acute Distress - Head Exam Head Exam: ATRAUMATIC, NORMAL INSPECTION - Eye Exam Eye Exam: EOMI, Normal appearance Pupil Exam: PERRL - ENT Exam ENT Exam: Mucous Membranes Moist Additional comments: 1.2 cm lesion on tip of nose with excoriations and telangiectasias Hearing aid right - Neck Exam Neck Exam: Full ROM, Normal Inspection - Respiratory Exam Respiratory Exam: Clear to Ausculation Bilateral. absent: Rales, Rhonchi, Wheezes - Cardiovascular Exam Cardiovascular Exam: REGULAR RHYTHM, RRR. absent: JVD, Rubs - GI/Abdominal Exam GI & Abdominal Exam: Soft, Normal Bowel Sounds. absent: Bruit, Distended, Firm , Guarding, Rigid, Tenderness - Extremities Exam Extremities Exam: Pedal Edema (Left) Additional comments: Left foot: Dressing in place, removed for exam. Great toe amputated, superficial wound on distal end of first toe and over dorsum. Acutely tender to palpation over wounds. Faintly palpable dorsalis pedis pulse (thready), unable to palpate posterior tibial pulse. Skin is warm to palpation along length of foot extending past ankle. Mild, non-pitting edema. Localized erythema over dorsum of foot. Right foot: No amputations, skin normal temperature, no erythema or edema. Healed ulcer with overlying dark eschar, no active oozing, discharge, or bleeding. Faintly palpable dorsalis pedis, unable to palpate posterior tibial pulse. - Back Exam Back Exam: NORMAL INSPECTION. absent: rash noted - Neurological Exam Neurological Exam: Alert, Awake, CN II-XII Intact, Oriented x3 Neuro motor strength exam: Left Upper Extremity: 5, Right Upper Extremity: 5, Left Lower Extremity: 5, Right Lower Extremity: 5 - Psychiatric Exam Psychiatric exam: Normal Affect, Normal Mood - Skin Additional comments: Normal except for feet, noted in extremeties and nose, noted in ENT. Assessment and Plan - Assessment and Plan (Free Text) Assessment: This is a 61 yo F with a PMH of anemia, DM-2, CAD, PAD, GERD, esophageal stenosis, HTN, and CKD, presented 5 days ago for L foot pain. She is currently being treated for cellulitis, osteomyelitis, FREDY on CKD, and anemia. She is also being worked up for elevated LFTs. Plan: 1. Left foot cellulitis and osteomyelitis - MRI results showed marrow edema 1st met, suggestive of early OM - Patient was discussed with podiatry (Dr. Raymond), appreciate all recs, will continue wound care with outpatient wound center - Continue IV Meropenem as per ID 6 week course; patient would like to continue this regimen at home, which was discussed with the rifle case repairer who will arrange for BID infusions at home with weekly CBC 2. Anemia - Improving - Seen by Heme/Onc (Dr. Hennessy) yesterday, appreciate all recs - Anemia status improved after receiving two units of PRBC yesterday - Continue IV Venefer and PO Fergon 3. FREDY on CKD - Improving - Being followed by nephrology (Dr. Reyes), appreciate all recs and workup - Continue 0.45% NS 75ml/hr 4. Elevated LFTs - Noted to have slightly elevated AST, ALT, and Alk Phos - Ordered Gallbladder and Hepatic US - Will continue to monitor 5. DM-2 - A1c 13.4 on 09/07 - Continue humalog Med-ISS - After reviewing labs, increase levemir to 8u SC AM/HS - Consistent carb diet - Fingersticks ACHS 6. CAD - Continue Aspirin 81mg QD 7. Hyperkalemia -5.2 on admit, improved, 3.8 today -continue to monitor GI/DVT prophylaxis: Protonix, Heparin SC Patient seen, reviewed, and discussed with PGY-2 Dr. Benjamin, and attending Dr. Galvez <Arden Galvez - Last Filed: 09/26/16 10:06> Objective - Vital Signs/Intake and Output Vital Signs (last 24 hours): Temp Pulse Resp BP Pulse Ox 98.4 F 95 H 20 156/75 H 100 09/13/16 16:00 09/13/16 16:00 09/13/16 16:00 09/13/16 16:00 09/13/16 16:00 - Labs Labs: 09/13/16 05:45 09/13/16 05:45 PT 11.4 Seconds (9.9-11.8) 09/07/16 16:30 INR 1.06 (0.93-1.08) 09/07/16 16:30 APTT 32.6 Seconds (23.7-30.8) H 09/07/16 16:30 Attending/Attestation - Attestation I have personally seen and examined this patient.: Yes I have fully participated in the care of the patient.: Yes I have reviewed all pertinent clinical information, including history, physical exam and plan: Yes Notes (Text): 09/26/16 10:06 Medical record note made by resident after discussion with my direction and input after the patient personally seen and examined by me. I have reviewed the chart and agree that the note represents my personal history, physical, data review and plan.
--- NOTE | 2016-09-11 18:00 | US ---
HISTORY: Left foot cellulitis, transaminitis. COMPARISON: None. TECHNIQUE: Sonographic evaluation of the right upper quadrant of the abdomen. FINDINGS: LIVER: Measures 12.8 cm in length. Hepatopedal blood flow. Fatty infiltration manifest ultrasonographically as increased echogenicity of the liver parenchyma. No mass. No intrahepatic bile duct dilatation. GALLBLADDER: Status post cholecystectomy. No abnormality is seen in the gallbladder fossa. COMMON BILE DUCT: Measures 11.5 mm. No stones. Common bile duct dilatation without luminal abnormality. No appreciable intrahepatic bile duct dilatation. PANCREAS: Unremarkable as visualized. No mass. No ductal dilatation. RIGHT KIDNEY: Measures 3.8 x 9.2 cm in length. Renal cortical atrophy. Incidental finding(s): Upper pole calculus 10 mm. AORTA: No aneurysmal dilatation. IVC: Unremarkable. OTHER FINDINGS: None . IMPRESSION: Hepatic steatosis. No focal masses. No intrahepatic bile duct dilatation or perihepatic ascites. Status post cholecystectomy with dilated common bile duct up to 11.5 mm. No intraluminal or extrinsic abnormalities with respect to visualized common bile duct.
[2016-09-11 19:22] LABS: RNP <1.0 AI (<1.0)
[2016-09-11] MEDS: Insulin Detemir 100 units/ml Vial (Levemir) SC SCH (21:32)
[2016-09-12] MEDS: Pantoprazole 40 mg Susp UD PO SCH (06:18)
[2016-09-12] MEDS: Insulin Reg-MEDIUM-Coverage SC SCH ×4 (07:51→21:38)
[2016-09-12 08:13] LABS: BASO # 0.02 K/mm3 (0.0-2.0); BASO % 0.3 % (0.0-3.0); EOS # 0.3 (0.0-0.7); EOS % 3.9 % (1.5-5.0); GRAN # 4.68 (1.4-6.5); GRAN % 59.4 % (50.0-68.0); HEMOGLOBIN 12.5 gm/dL (12.0-16.0); LYMPH # 1.9 (1.2-3.4); LYMPH % 23.9 % (22.0-35.0); MEAN CELL VOLUME 89.2 fL (80.0-105.0); MEAN CORPUSCULAR HEMOGLOBIN 29.3 pg (25.0-35.0); MEAN CORPUSCULAR HGB CONC 32.8 g/dl (31.0-37.0); MEAN PLATELET VOLUME 9.7 fl (7.0-11.0); MONO % 12.5 % (1.0-6.0); PLATELET COUNT 286 10^3/uL (120.0-450.0); RBC 4.27 10^6/uL (3.5-6.1); RED CELL DISTRIBUTION WIDTH 15.5 % (11.5-14.5); WHITE BLOOD COUNT 7.9 10^3/ul (4.5-11.0)
[2016-09-12 08:26] LABS: ALBUMIN 3.5 g/dL (3.0-4.8); ALT/SGPT 97 U/L (7-56); AST/SGOT 90 U/L (15-39); BLOOD UREA NITROGEN 17 mg/dL (7-21); CALCIUM 9.4 mg/dL (8.4-10.5); GFR AFRICAN-AMERICAN > 60; GFR NON-AFRICAN AMERICAN 51; MAGNESIUM 2.3 mg/dL (1.7-2.2)
--- NOTE | 2016-09-12 08:53 | CP.PCM.PN ---
Subjective - Date & Time of Evaluation Date of Evaluation: 09/12/16 Time of Evaluation: 08:47 - Subjective Subjective: 61 year old female was seen at bedside for continued E and M of left foot cellulitis with sub met 1 ulceration that has returned as highly suggestive of early OM which will require a course of IV antibiotics. Patient seen resting comfortably, AAOx3 and NAD. Patient denies any acute events overnight. Patient reports continued tenderness to her left foot. She denies any n/v/f/c/sob/cp. No other pedal complaints at this time. Patient states that when she is discharged, she will go home and continue IV abx. Objective - Vital Signs/Intake and Output Vital Signs (last 24 hours): Temp Pulse Resp BP Pulse Ox 98.8 F 99 H 18 142/74 96 09/12/16 08:10 09/12/16 08:10 09/12/16 08:10 09/12/16 08:10 09/12/16 08:10 Intake and Output: 09/12/16 09/12/16 06:59 18:59 Intake Total 660 Output Total 1 Balance 659 - Medications Medications: Current Medications Acetaminophen (Tylenol 650mg/20.3ml Solution Ud) 650 mg PO Q6H PRN PRN Reason: fever Last Admin: 09/08/16 05:11 Dose: 650 mg Aspirin (Ecotrin) 81 mg PO DAILY [facility] Last Admin: 09/11/16 09:34 Dose: 81 mg Cadexomer Iodine (Iodosorb) 0 gm TOP DAILY [facility] Last Admin: 09/11/16 09:36 Dose: 1 gm Collagenase (Santyl) 0 gm TOP DAILY [facility] Ergocalciferol (Drisdol 50,000 Intl Units Cap) 1 cap PO Q7D [facility] Stop: 10/29/16 09:31 Last Admin: 09/10/16 10:18 Dose: 1 cap Ferrous Gluconate (Fergon) 324 mg PO TID [facility] Last Admin: 09/11/16 17:43 Dose: 324 mg Heparin Sodium (Porcine) (Heparin) 5,000 units SC Q12 [facility] PRN Reason: Protocol Last Admin: 09/11/16 21:30 Dose: 5,000 units Meropenem 1g/NS 100mL IVPB (Meropenem 1g/Ns 100ml Ivpb) 1 gm in 100 mls @ 100 mls/hr IVPB Q12 [facility] PRN Reason: Protocol Stop: 09/17/16 10:01 Last Admin: 09/11/16 21:32 Dose: 100 mls/hr Iron Sucrose 100 mg/ Sodium (Chloride) 105 mls @ 210 mls/hr IVPB DAILY [facility] Stop: 09/15/16 12:01 Last Admin: 09/11/16 09:37 Dose: 210 mls/hr Sodium Chloride (Sodium Chloride 0.45%) 1,000 mls @ 75 mls/hr IV .[id number] [facility] Stop: 09/14/16 11:01 Last Admin: 09/12/16 01:38 Dose: Not Given Insulin Detemir (Levemir) 8 unit SC AMHS [facility] Last Admin: 09/11/16 21:32 Dose: 8 unit Insulin Human Regular (Humulin R Med) 0 units SC ACHS [facility] PRN Reason: Protocol Last Admin: 09/12/16 07:51 Dose: 1 units Magnesium Oxide (Mag-Ox) 400 mg PO DAILY [facility] Last Admin: 09/11/16 09:34 Dose: 400 mg Megestrol Acetate (Megace) 40 mg PO DAILY [facility] Last Admin: 09/11/16 09:35 Dose: 40 mg Metoprolol Succinate (Toprol Xl) 50 mg PO BRK [facility] Last Admin: 09/11/16 09:35 Dose: 50 mg Multivitamins (Thera Tab) 1 tab PO 0800 [facility] Last Admin: 09/11/16 09:37 Dose: 1 tab Mupirocin (Bactroban Ointment) 0 gm TOP BID [facility] Last Admin: 09/11/16 17:42 Dose: 1 applic Pantoprazole Sodium (Protonix Susp) 40 mg PO 0600 [facility] Last Admin: 09/12/16 06:18 Dose: 40 mg Sodium Bicarbonate (Sodium Bicarbonate Tab) 1,300 mg PO TID [facility] Last Admin: 09/11/16 17:43 Dose: 1,300 mg - Labs Labs: 09/12/16 08:05 09/12/16 08:05 PT 11.4 Seconds (9.9-11.8) 09/07/16 16:30 INR 1.06 (0.93-1.08) 09/07/16 16:30 APTT 32.6 Seconds (23.7-30.8) H 09/07/16 16:30 - Constitutional Appears: Well, Non-toxic, No Acute Distress - Extremities Exam Additional comments: VASC: DP and PT pulses are palpable 2/4, CART[employer]IST: < 3 sec x 4, TG: warm to cool, no pitting or non-pitting edema noted, superficial erythema noted surrounding forefoot DERM: superficial wound on plantar 1st metatarsal head with hyperkeratotic rim, wound base is necrotic with fibrotic border, no malodor, no drainage noted, no probe to bone, no undermining or tunneling noted, superficial epidermal layer shedding noted, localized erythema noted on the dorsum of the L forefoot NEURO: Gross sensation intact ORTHO: pain on palpation of the lesion site, L foot hallux amputation, contracted digits 2-4 noted - Neurological Exam Neurological Exam: Alert, Awake, Oriented x3 Assessment and Plan - Assessment and Plan (Free Text) Assessment: 61 year old female with PMHx of Diabetes mellitus type 2, anemia, peripheral arterial disease, GERD, esophageal stenosis, hypertension, chronic kidney disease, osteomyelitis, CAD seen at bedside for left foot cellulitis and open ulceration Plan: Pt seen at bedside with Dr. Raymond chart, labs, vitals reviewed Continue IV abx as per ID; meropenem X-rays reviewed (no significant soft tissue edema or gross abnormalities noted) MRI results obtained: marrow edema 1st met, could be suggestive of early OM left foot dressed with adaptic, 4x4, ABD, kerlix santyl ordered- to be applied to plantar ulcer, bactroban ordered- to be applied to dorsal foot upon D/C patient to have home nursing change dressing on , , pt to [facility] on Sunday Podiatry will continue to follow the pt while in-house
--- NOTE | 2016-09-12 09:20 | CP.PCM.PN ---
<ASIF AGEE - Last Filed: 09/12/16 12:14> Subjective - Date & Time of Evaluation Date of Evaluation: 09/12/16 Time of Evaluation: 06:45 - Subjective Subjective: Asif Agee D.O. PGY1 - Internal Medicine - [facility] Patient seen and examined at bedside. Today is hospital day 6. No acute events overnight. Pain in her foot is improving. She is complaining of mild B/L anterior murry pain since this morning. Today, she denies CP, SOB, F/C, abdominal pain, diarrhea, calf pain, or focal weakness. Objective - Vital Signs/Intake and Output Vital Signs (last 24 hours): Temp Pulse Resp BP Pulse Ox 98.8 F 99 H 18 142/74 96 09/12/16 08:10 09/12/16 08:10 09/12/16 08:10 09/12/16 08:10 09/12/16 08:10 Intake and Output: 09/12/16 09/12/16 06:59 18:59 Intake Total 660 Output Total 1 Balance 659 - Medications Medications: Current Medications Acetaminophen (Tylenol 650mg/20.3ml Solution Ud) 650 mg PO Q6H PRN PRN Reason: fever Last Admin: 09/08/16 05:11 Dose: 650 mg Aspirin (Ecotrin) 81 mg PO DAILY [facility] Last Admin: 09/11/16 09:34 Dose: 81 mg Cadexomer Iodine (Iodosorb) 0 gm TOP DAILY [facility] Last Admin: 09/11/16 09:36 Dose: 1 gm Collagenase (Santyl) 0 gm TOP DAILY [facility] Ergocalciferol (Drisdol 50,000 Intl Units Cap) 1 cap PO Q7D [facility] Stop: 10/29/16 09:31 Last Admin: 09/10/16 10:18 Dose: 1 cap Ferrous Gluconate (Fergon) 324 mg PO TID [facility] Last Admin: 09/11/16 17:43 Dose: 324 mg Heparin Sodium (Porcine) (Heparin) 5,000 units SC Q12 [facility] PRN Reason: Protocol Last Admin: 09/11/16 21:30 Dose: 5,000 units Meropenem 1g/NS 100mL IVPB (Meropenem 1g/Ns 100ml Ivpb) 1 gm in 100 mls @ 100 mls/hr IVPB Q12 [facility] PRN Reason: Protocol Stop: 09/17/16 10:01 Last Admin: 09/11/16 21:32 Dose: 100 mls/hr Iron Sucrose 100 mg/ Sodium (Chloride) 105 mls @ 210 mls/hr IVPB DAILY [facility] Stop: 09/15/16 12:01 Last Admin: 09/11/16 09:37 Dose: 210 mls/hr Sodium Chloride (Sodium Chloride 0.45%) 1,000 mls @ 75 mls/hr IV .[id number] [facility] Stop: 09/14/16 11:01 Last Admin: 09/12/16 01:38 Dose: Not Given Insulin Detemir (Levemir) 8 unit SC AMHS [facility] Last Admin: 09/11/16 21:32 Dose: 8 unit Insulin Human Regular (Humulin R Med) 0 units SC ACHS [facility] PRN Reason: Protocol Last Admin: 09/12/16 07:51 Dose: 1 units Magnesium Oxide (Mag-Ox) 400 mg PO DAILY [facility] Last Admin: 09/11/16 09:34 Dose: 400 mg Megestrol Acetate (Megace) 40 mg PO DAILY [facility] Last Admin: 09/11/16 09:35 Dose: 40 mg Metoprolol Succinate (Toprol Xl) 50 mg PO BRK [facility] Last Admin: 09/11/16 09:35 Dose: 50 mg Multivitamins (Thera Tab) 1 tab PO 0800 [facility] Last Admin: 09/11/16 09:37 Dose: 1 tab Mupirocin (Bactroban Ointment) 0 gm TOP BID [facility] Last Admin: 09/11/16 17:42 Dose: 1 applic Pantoprazole Sodium (Protonix Susp) 40 mg PO 0600 [facility] Last Admin: 09/12/16 06:18 Dose: 40 mg Sodium Bicarbonate (Sodium Bicarbonate Tab) 1,300 mg PO TID [facility] Last Admin: 09/11/16 17:43 Dose: 1,300 mg - Labs Labs: 09/12/16 08:05 09/12/16 08:05 PT 11.4 Seconds (9.9-11.8) 09/07/16 16:30 INR 1.06 (0.93-1.08) 09/07/16 16:30 APTT 32.6 Seconds (23.7-30.8) H 09/07/16 16:30 - Constitutional Appears: Well, Chronically Ill - Head Exam Head Exam: ATRAUMATIC, NORMOCEPHALIC - Eye Exam Eye Exam: EOMI, Normal appearance Pupil Exam: PERRL - ENT Exam ENT Exam: Mucous Membranes Moist Additional comments: 1.2 cm lesion on tip of nose with excoriations and telangiectasias - Neck Exam Neck Exam: Full ROM. absent: Lymphadenopathy, Thyromegaly - Respiratory Exam Respiratory Exam: Clear to Ausculation Bilateral, NORMAL BREATHING PATTERN. absent: Rales, Rhonchi, Wheezes - Cardiovascular Exam Cardiovascular Exam: REGULAR RHYTHM, +S1, +S2. absent: Murmur - GI/Abdominal Exam GI & Abdominal Exam: Soft, Normal Bowel Sounds. absent: Firm, Tenderness - Extremities Exam Extremities Exam: Full ROM, Pedal Edema. absent: Calf Tenderness Additional comments: Left foot: Dressing in place, removed for exam. Great toe amputated, superficial wound on distal end of first toe and over forefoot dorsum, no drainage or bleeding. Acutely tender to palpation over wounds. Pedal pulses palpable. Skin is warm to palpation along length of foot extending past ankle. Mild, non-pitting edema. Localized erythema over dorsum of foot. Right foot: No amputations, skin normal temperature, no erythema or edema. Healed ulcer with overlying dark eschar, no active oozing, discharge, or bleeding. Pedal pulses palpable. - Neurological Exam Neurological Exam: Alert, Awake, CN II-XII Intact, Oriented x3 - Psychiatric Exam Psychiatric exam: Normal Affect, Normal Mood - Skin Skin Exam: Dry Additional comments: See ENT and EXTREMITIES for specific findings Assessment and Plan - Assessment and Plan (Free Text) Assessment: This is a 61 yo F with a anemia, DM-2, CAD, PAD, GERD, esophageal stenosis, HTN , and CKD, presented 6 days ago for L foot pain. She is currently being treated for cellulitis, osteomyelitis, FREDY on CKD, and anemia. She is also being worked up for elevated LFTs, pending LUQ US. Plan: 1. Left foot cellulitis and osteomyelitis - MRI results showed marrow edema 1st met, suggestive of early OM - Patient is being seen in house by podiatry (Dr. Raymond), appreciate all recs, will continue wound care with outpatient wound center upon discharge - Continue IV Meropenem as per ID 6 week course; PICC line in place, patient would like to continue this regimen at home, which was discussed with the case supervisor who will arrange for BID infusions at home with weekly CBC and CMP 2. Anemia - Improving - Seen by Heme/Onc (Dr. Hennessy) yesterday, appreciate all recs - Anemia status improved after receiving two units of PRBC yesterday - Continue IV Venefer and PO Fergon 3. FREDY on CKD - Improving - Being followed by nephrology (Dr. Reyes), appreciate all recs and workup - Continue 0.45% NS 75ml/hr 4. Elevated LFTs - Noted to have slightly elevated AST, ALT, and Alk Phos - RUQ US significant for dilated CBD s/p cholecystectomy years ago - Check lipase at next blood draw - Will continue to monitor 5. DM-2 - A1c 13.4 on 09/07 - Continue humalog Med-ISS, levemir 8u SC AM/HS - Consistent carb diet - Fingersticks ACHS 6. CAD - Continue Aspirin 81mg QD 7. Hyperkalemia - Improved -5.2 on admit, improved, 3.8 today -continue to monitor GI/DVT prophylaxis: Protonix, Heparin SC Patient seen, reviewed, and discussed with attending Dr. Salazar <Xavier Salazar - Last Filed: 09/13/16 15:29> Objective - Vital Signs/Intake and Output Vital Signs (last 24 hours): Temp Pulse Resp BP Pulse Ox 97.9 F 93 H 20 135/74 99 09/13/16 07:30 09/13/16 09:54 09/13/16 07:30 09/13/16 09:54 09/13/16 07:30 Intake and Output: 09/13/16 09/13/16 06:59 18:59 Intake Total 600 640 Output Total 1 Balance 600 639 - Medications Medications: Current Medications Acetaminophen (Tylenol 650mg/20.3ml Solution Ud) 650 mg PO Q6H PRN PRN Reason: fever Last Admin: 09/08/16 05:11 Dose: 650 mg Aspirin (Ecotrin) 81 mg PO DAILY [facility] Last Admin: 09/13/16 09:56 Dose: 81 mg Cadexomer Iodine (Iodosorb) 0 gm TOP DAILY [facility] Last Admin: 09/13/16 09:58 Dose: 1 gm Collagenase (Santyl) 0 gm TOP DAILY [facility] Last Admin: 09/13/16 10:14 Dose: 1 applic Ergocalciferol (Drisdol 50,000 Intl Units Cap) 1 cap PO Q7D [facility] Stop: 10/29/16 09:31 Last Admin: 09/10/16 10:18 Dose: 1 cap Ferrous Gluconate (Fergon) 324 mg PO TID [facility] Last Admin: 09/13/16 14:51 Dose: 324 mg Heparin Sodium (Porcine) (Heparin) 5,000 units SC Q12 [facility] PRN Reason: Protocol Last Admin: 09/13/16 09:58 Dose: 5,000 units Meropenem 1g/NS 100mL IVPB (Meropenem 1g/Ns 100ml Ivpb) 1 gm in 100 mls @ 100 mls/hr IVPB Q12 [facility] PRN Reason: Protocol Stop: 09/17/16 10:01 Last Admin: 09/13/16 10:01 Dose: 100 mls/hr Iron Sucrose 100 mg/ Sodium (Chloride) 105 mls @ 210 mls/hr IVPB DAILY [facility] Stop: 09/15/16 12:01 Last Admin: 09/13/16 10:02 Dose: 210 mls/hr Insulin Detemir (Levemir) 12 unit SC AMHS [facility] Last Admin: 09/13/16 10:00 Dose: 12 unit Insulin Human Regular (Humulin R Med) 0 units SC ACHS [facility] PRN Reason: Protocol Last Admin: 09/13/16 12:02 Dose: 8 units Losartan Potassium (Cozaar) 50 mg PO DAILY [facility] Last Admin: 09/13/16 09:54 Dose: 50 mg Magnesium Oxide (Mag-Ox) 400 mg PO DAILY [facility] Last Admin: 09/13/16 10:01 Dose: 400 mg Megestrol Acetate (Megace) 40 mg PO DAILY [facility] Last Admin: 09/13/16 10:01 Dose: 40 mg Metoprolol Succinate (Toprol Xl) 50 mg PO BRK [facility] Last Admin: 09/13/16 08:11 Dose: 50 mg Multivitamins (Thera Tab) 1 tab PO 0800 [facility] Last Admin: 09/13/16 08:11 Dose: 1 tab Mupirocin (Bactroban Ointment) 0 gm TOP BID [facility] Last Admin: 09/13/16 11:56 Dose: 1 applic Pantoprazole Sodium (Protonix Susp) 40 mg PO 0600 [facility] Last Admin: 09/13/16 05:34 Dose: 40 mg Sodium Bicarbonate (Sodium Bicarbonate Tab) 650 mg PO TID [facility] Last Admin: 09/13/16 14:52 Dose: 650 mg - Labs Labs: 09/13/16 05:45 09/13/16 05:45 PT 11.4 Seconds (9.9-11.8) 09/07/16 16:30 INR 1.06 (0.93-1.08) 09/07/16 16:30 APTT 32.6 Seconds (23.7-30.8) H 09/07/16 16:30 Attending/Attestation - Attestation I have personally seen and examined this patient.: Yes I have fully participated in the care of the patient.: Yes I have reviewed all pertinent clinical information, including history, physical exam and plan: Yes Notes (Text): 09/13/16 15:29 Medical record note made by the resident after discussion with my direction and input after the patient was personally seen and examined by me. I have reviewed the chart and agree that the record accurately reflects by personal performance of the history, physical exam, data review, and medical decision-making, in the course for the patient. I have also personally directed the plan of care.
[2016-09-12] MEDS: Collagenase 250 Units/gm Ointment(30 gm) TOP SCH (09:37)
[2016-09-12] MEDS: Meropenem 1g/NS 100mL IVPB 1 GM/100 ML PIGGYBACK IVPB SCH ×2 (09:38→21:09)
[2016-09-12] MEDS: Multivitamin Therapeutic Tab PO SCH (09:39)
[2016-09-12] MEDS: Metoprolol Succinate 50 mg XL Tab PO SCH (09:40)
[2016-09-12] MEDS: Insulin Detemir 100 units/ml Vial (Levemir) SC SCH ×2 (09:59→21:29)
[2016-09-12] MEDS: Magnesium Oxide 400 mg Tab UD PO SCH (10:00)
--- NOTE | 2016-09-12 10:10 | CP.PCM.PN ---
Subjective - Date & Time of Evaluation Date of Evaluation: 09/12/16 Time of Evaluation: 10:08 - Subjective Subjective: Follow up Nephrology Consultation: Assessment: Stable Improving Acute Kidney Injury (N17.9) [likely hemodynamic due to current sepsis ] on Chronic Kidney Disease (N18.4) Stage 3 with ? mg proteinuria (R80.9) with bilateral renal cortical atrophy seen on sonogram. Simple cyst Rt kidney hx of FREDY in past Anemia (D64.9) s/p 2 unit PRBC, uncontrolled DM with hyperglycemia, HTN (I12.9) non anion gap metabolic acidosis hearing loss, esophageal stenosis left foot cellulitis Vit D insufficiency, Hypernatremia, Hypomagnesemia, hypokalemia Plan No acute need for renal replacement therapy at this time. Hypertension control with meds as ordered. added losartan 50 mg/day d/c IVF. added sodium bicarb 1300 mg TID Monitor Input/Output, daily weights and renal function with basic metabolic panel Supplement electrolytes, vit D, oral iron so far serological work up neg Dose meds/antibiotics for reduced GFR 50-59. Avoid fleets enema/magnesium based laxatives. Avoid nephrotoxins/NSAIDs/ iodinated contrast (unless needed emergently) Glycemic control Further work up/management as per primary team. Thanks for allowing me to participate in care of your patient. Please call if any Qs. pt stable from renal perspective Dr Javier Reyes Office: [phone] Reason for consult: elevated creatinine HPI: Pt is a 61 y/o F with hx of diabetes Mellitus ( x 8-9 years), hypertension (?years), hearing loss, esophageal stenosis, chronic anemia admitted with left foot worsening wound infection for last 1-2 days and renal consulted for elevated creatinine. ROS: Denies chest pain, palpitation, shortness of breath, leg swelling. left foot pain better Physical Examination: General Appearance: Comfortable, in no acute respiratory distress, co-operative . frail appearing female Vitals reviewed and noted as below Lungs: Normal respiratory rate/effort. Breath sounds bilateral equal and clear Heart: Increased rate. s1s2 normal. No rub or gallop. Extremities: no edema, left foot dressed. scab/ulceration on Rt foot as well, no active drainage there. No varicose veins. b/l hand deformity noted Neurological: Patient is alert, awake and oriented to person, place and time. No focal deficit. Strength bilateral appropriate and equal Skin: Warm and dry. turgor difficulty to ascertain due to her malnourished appearing status. No rash. Palpitation: Normal elasticity for age Abdomen: Abdomen is soft. Bowel sounds +. There is no abdominal tenderness, no guarding/rigidity no organomegaly Psych: normal insight and normal affect/mood MSK: left foot swelling +. b/l hand digits deformity : kidney or bladder not palpable Labs/imaging/EKG reviewed. Past medical history, past surgical history, family history, social history, allergy reviewed and noted as below Family hx: no hx of CKD. Rest non-contributory WORK UP UA: 30 protein trace blood RBC 2-5 and 3+ glucose CXR negative TSAT 6% Serum creatinine 1.9 in 2016 and 1.1 in 2014 Objective - Vital Signs/Intake and Output Vital Signs (last 24 hours): Temp Pulse Resp BP Pulse Ox 98.8 F 88 18 140/70 96 09/12/16 08:10 09/12/16 09:40 09/12/16 08:10 09/12/16 09:40 09/12/16 08:10 Intake and Output: 09/12/16 09/12/16 06:59 18:59 Intake Total 660 Output Total 1 Balance 659 - Medications Medications: Current Medications Acetaminophen (Tylenol 650mg/20.3ml Solution Ud) 650 mg PO Q6H PRN PRN Reason: fever Last Admin: 09/08/16 05:11 Dose: 650 mg Aspirin (Ecotrin) 81 mg PO DAILY [facility] Last Admin: 09/12/16 09:39 Dose: 81 mg Cadexomer Iodine (Iodosorb) 0 gm TOP DAILY [facility] Last Admin: 09/11/16 09:36 Dose: 1 gm Collagenase (Santyl) 0 gm TOP DAILY [facility] Last Admin: 09/12/16 09:37 Dose: 1 applic Ergocalciferol (Drisdol 50,000 Intl Units Cap) 1 cap PO Q7D [facility] Stop: 10/29/16 09:31 Last Admin: 09/10/16 10:18 Dose: 1 cap Ferrous Gluconate (Fergon) 324 mg PO TID [facility] Last Admin: 09/12/16 09:40 Dose: 324 mg Heparin Sodium (Porcine) (Heparin) 5,000 units SC Q12 [facility] PRN Reason: Protocol Last Admin: 09/12/16 09:41 Dose: 5,000 units Meropenem 1g/NS 100mL IVPB (Meropenem 1g/Ns 100ml Ivpb) 1 gm in 100 mls @ 100 mls/hr IVPB Q12 [facility] PRN Reason: Protocol Stop: 09/17/16 10:01 Last Admin: 09/12/16 09:38 Dose: 100 mls/hr Iron Sucrose 100 mg/ Sodium (Chloride) 105 mls @ 210 mls/hr IVPB DAILY [facility] Stop: 09/15/16 12:01 Last Admin: 09/11/16 09:37 Dose: 210 mls/hr Insulin Detemir (Levemir) 8 unit SC AMHS [facility] Last Admin: 09/12/16 09:59 Dose: 8 unit Insulin Human Regular (Humulin R Med) 0 units SC ACHS [facility] PRN Reason: Protocol Last Admin: 09/12/16 07:51 Dose: 1 units Losartan Potassium (Cozaar) 50 mg PO DAILY [facility] Last Admin: 09/12/16 09:39 Dose: 50 mg Magnesium Oxide (Mag-Ox) 400 mg PO DAILY [facility] Last Admin: 09/12/16 10:00 Dose: Not Given Megestrol Acetate (Megace) 40 mg PO DAILY [facility] Last Admin: 09/12/16 09:39 Dose: 40 mg Metoprolol Succinate (Toprol Xl) 50 mg PO BRK [facility] Last Admin: 09/12/16 09:40 Dose: 50 mg Multivitamins (Thera Tab) 1 tab PO 0800 [facility] Last Admin: 09/12/16 09:39 Dose: 1 tab Mupirocin (Bactroban Ointment) 0 gm TOP BID [facility] Last Admin: 09/12/16 09:37 Dose: 1 applic Pantoprazole Sodium (Protonix Susp) 40 mg PO 0600 [facility] Last Admin: 09/12/16 06:18 Dose: 40 mg Sodium Bicarbonate (Sodium Bicarbonate Tab) 1,300 mg PO TID [facility] Last Admin: 09/12/16 09:39 Dose: 1,300 mg - Labs Labs: 09/12/16 08:05 09/12/16 08:05 PT 11.4 Seconds (9.9-11.8) 09/07/16 16:30 INR 1.06 (0.93-1.08) 09/07/16 16:30 APTT 32.6 Seconds (23.7-30.8) H 09/07/16 16:30
--- NOTE | 2016-09-12 11:58 | CP.PCM.PN ---
Subjective - Date & Time of Evaluation Date of Evaluation: 09/12/16 Time of Evaluation: 09:00 - Subjective Subjective: DOING WELL Objective - Vital Signs/Intake and Output Vital Signs (last 24 hours): Temp Pulse Resp BP Pulse Ox 98.8 F 88 18 140/70 96 09/12/16 08:10 09/12/16 09:40 09/12/16 08:10 09/12/16 09:40 09/12/16 08:10 Intake and Output: 09/12/16 09/12/16 06:59 18:59 Intake Total 660 Output Total 1 Balance 659 - Medications Medications: Current Medications Acetaminophen (Tylenol 650mg/20.3ml Solution Ud) 650 mg PO Q6H PRN PRN Reason: fever Last Admin: 09/08/16 05:11 Dose: 650 mg Aspirin (Ecotrin) 81 mg PO DAILY [facility] Last Admin: 09/12/16 09:39 Dose: 81 mg Cadexomer Iodine (Iodosorb) 0 gm TOP DAILY [facility] Last Admin: 09/11/16 09:36 Dose: 1 gm Collagenase (Santyl) 0 gm TOP DAILY [facility] Last Admin: 09/12/16 09:37 Dose: 1 applic Ergocalciferol (Drisdol 50,000 Intl Units Cap) 1 cap PO Q7D [facility] Stop: 10/29/16 09:31 Last Admin: 09/10/16 10:18 Dose: 1 cap Ferrous Gluconate (Fergon) 324 mg PO TID [facility] Last Admin: 09/12/16 09:40 Dose: 324 mg Heparin Sodium (Porcine) (Heparin) 5,000 units SC Q12 [facility] PRN Reason: Protocol Last Admin: 09/12/16 09:41 Dose: 5,000 units Meropenem 1g/NS 100mL IVPB (Meropenem 1g/Ns 100ml Ivpb) 1 gm in 100 mls @ 100 mls/hr IVPB Q12 [facility] PRN Reason: Protocol Stop: 09/17/16 10:01 Last Admin: 09/12/16 09:38 Dose: 100 mls/hr Iron Sucrose 100 mg/ Sodium (Chloride) 105 mls @ 210 mls/hr IVPB DAILY [facility] Stop: 09/15/16 12:01 Last Admin: 09/12/16 11:00 Dose: 210 mls/hr Insulin Detemir (Levemir) 8 unit SC AMHS [facility] Last Admin: 09/12/16 09:59 Dose: 8 unit Insulin Human Regular (Humulin R Med) 0 units SC ACHS [facility] PRN Reason: Protocol Last Admin: 09/12/16 11:36 Dose: 8 units Losartan Potassium (Cozaar) 50 mg PO DAILY [facility] Last Admin: 09/12/16 09:39 Dose: 50 mg Magnesium Oxide (Mag-Ox) 400 mg PO DAILY [facility] Last Admin: 09/12/16 10:00 Dose: Not Given Megestrol Acetate (Megace) 40 mg PO DAILY [facility] Last Admin: 09/12/16 09:39 Dose: 40 mg Metoprolol Succinate (Toprol Xl) 50 mg PO BRK [facility] Last Admin: 09/12/16 09:40 Dose: 50 mg Multivitamins (Thera Tab) 1 tab PO 0800 [facility] Last Admin: 09/12/16 09:39 Dose: 1 tab Mupirocin (Bactroban Ointment) 0 gm TOP BID [facility] Last Admin: 09/12/16 09:37 Dose: 1 applic Pantoprazole Sodium (Protonix Susp) 40 mg PO 0600 [facility] Last Admin: 09/12/16 06:18 Dose: 40 mg Sodium Bicarbonate (Sodium Bicarbonate Tab) 1,300 mg PO TID [facility] Last Admin: 09/12/16 09:39 Dose: 1,300 mg - Labs Labs: 09/12/16 08:05 09/12/16 08:05 PT 11.4 Seconds (9.9-11.8) 09/07/16 16:30 INR 1.06 (0.93-1.08) 09/07/16 16:30 APTT 32.6 Seconds (23.7-30.8) H 09/07/16 16:30 - Constitutional Appears: Well - Head Exam Head Exam: ATRAUMATIC, NORMAL INSPECTION, NORMOCEPHALIC - Eye Exam Eye Exam: EOMI, Normal appearance, PERRL Pupil Exam: NORMAL ACCOMODATION, PERRL - ENT Exam ENT Exam: Mucous Membranes Moist, Normal Exam - Neck Exam Neck Exam: Full ROM, Normal Inspection. absent: Lymphadenopathy - Respiratory Exam Respiratory Exam: Clear to Ausculation Bilateral, NORMAL BREATHING PATTERN - Cardiovascular Exam Cardiovascular Exam: REGULAR RHYTHM, +S1, +S2. absent: Murmur - GI/Abdominal Exam GI & Abdominal Exam: Soft, Normal Bowel Sounds. absent: Tenderness - Rectal Exam Rectal Exam: NORMAL INSPECTION - Exam Exam: Circumcision, NORMAL INSPECTION External exam: NORMAL EXTERNAL EXAM Speculum exam: NORMAL SPECULUM EXAM Bimanual exam: NORMAL BIMANUAL EXAM - Extremities Exam Extremities Exam: Full ROM, Normal Capillary Refill, Normal Inspection. absent : Joint Swelling, Pedal Edema - Back Exam Back Exam: NORMAL INSPECTION - Neurological Exam Neurological Exam: Alert, Awake, CN II-XII Intact, Normal Gait, Oriented x3 - Psychiatric Exam Psychiatric exam: Normal Affect, Normal Mood - Skin Skin Exam: Dry, Intact, Normal Color, Warm Assessment and Plan (1) Sepsis affecting skin Status: Acute (2) Cellulitis Status: Acute (3) Diabetic foot ulcer Status: Acute (4) Diabetic neuropathy Status: Active (5) Osteomyelitis of left foot Status: Acute (6) Sedimentation rate elevation Status: Acute (7) CRP elevated Status: Acute (8) Streptococcus group B infection Status: Acute (9) Streptococcus agalactiae infection Status: Acute - Assessment and Plan (Free Text) Plan: ON MERR FOR 4- 6 WKS WEEKLY LABS
[2016-09-13] MEDS: Pantoprazole 40 mg Susp UD PO SCH (05:34)
[2016-09-13 06:26] LABS: BASO # 0.03 K/mm3 (0.0-2.0); BASO % 0.4 % (0.0-3.0); EOS # 0.3 (0.0-0.7); EOS % 3.5 % (1.5-5.0); GRAN # 4.37 (1.4-6.5); GRAN % 58.8 % (50.0-68.0); LYMPH # 1.9 (1.2-3.4); LYMPH % 25.7 % (22.0-35.0); MEAN CELL VOLUME 90.2 fL (80.0-105.0); MEAN CORPUSCULAR HEMOGLOBIN 29.5 pg (25.0-35.0); MEAN CORPUSCULAR HGB CONC 32.7 g/dl (31.0-37.0); MONO # 0.9 (0.1-0.6); MONO % 11.6 % (1.0-6.0); PLATELET COUNT 265 10^3/uL (120.0-450.0); RBC 4.41 10^6/uL (3.5-6.1); RED CELL DISTRIBUTION WIDTH 15.2 % (11.5-14.5); WHITE BLOOD COUNT 7.4 10^3/ul (4.5-11.0)
[2016-09-13 06:30] LABS: ALB/GLOB RATIO 0.9 (1.1-1.8); ALBUMIN 3.3 g/dL (3.0-4.8); ALT/SGPT 76 U/L (7-56); AST/SGOT 50 U/L (15-39); BLOOD UREA NITROGEN 26 mg/dL (7-21); CALCIUM 9.3 mg/dL (8.4-10.5); GFR AFRICAN-AMERICAN > 60; GFR NON-AFRICAN AMERICAN 51
[2016-09-13] MEDS ORDERED: Insulin Detemir 100 units/ml Vial (Levemir) SC SCH (07:11)
[2016-09-13] MEDS: Insulin Reg-MEDIUM-Coverage SC SCH ×3 (08:10→17:36)
[2016-09-13] MEDS: Metoprolol Succinate 50 mg XL Tab PO SCH (08:11)
[2016-09-13] MEDS: Multivitamin Therapeutic Tab PO SCH (08:11)
[2016-09-13 08:14] VITALS: RESP 20
[2016-09-13] MEDS: CADEXOMER IODINE 0.9% GEL 10G TOP SCH (09:58)
[2016-09-13] MEDS: Magnesium Oxide 400 mg Tab UD PO SCH (10:01)
[2016-09-13] MEDS: Meropenem 1g/NS 100mL IVPB 1 GM/100 ML PIGGYBACK IVPB SCH (10:01)
[2016-09-13] MEDS: Collagenase 250 Units/gm Ointment(30 gm) TOP SCH (10:14)
--- NOTE | 2016-09-13 11:53 | CP.PCM.PN ---
Subjective - Date & Time of Evaluation Date of Evaluation: 09/13/16 Time of Evaluation: 11:51 - Subjective Subjective: Follow up Nephrology Consultation: Assessment: Stable Improving Acute Kidney Injury (N17.9) [likely hemodynamic due to current sepsis ] on Chronic Kidney Disease (N18.4) Stage 3 with ? mg proteinuria (R80.9) with bilateral renal cortical atrophy seen on sonogram. Simple cyst Rt kidney hx of FREDY in past Anemia (D64.9) s/p 2 unit PRBC, uncontrolled DM with hyperglycemia, HTN (I12.9) non anion gap metabolic acidosis hearing loss, esophageal stenosis left foot cellulitis Vit D insufficiency, Hypernatremia, Hypomagnesemia, hypokalemia Plan Hypertension control with meds as ordered. added losartan 50 mg/day lowered sodium bicarb 650 mg TID Supplement electrolytes, vit D, oral iron so far serological work up neg Dose meds/antibiotics for reduced GFR 50-59. Avoid fleets enema/magnesium based laxatives. Avoid nephrotoxins/NSAIDs/ iodinated contrast (unless needed emergently) Glycemic control Further work up/management as per primary team. Thanks for allowing me to participate in care of your patient. Please call if any Qs. pt stable from renal perspective. to f/up in 2 weeks post d/c. Dr Javier Reyes Office: [phone] Reason for consult: elevated creatinine HPI: Pt is a 61 y/o F with hx of diabetes Mellitus ( x 8-9 years), hypertension (?years), hearing loss, esophageal stenosis, chronic anemia admitted with left foot worsening wound infection for last 1-2 days and renal consulted for elevated creatinine. ROS: Denies chest pain, palpitation, shortness of breath, leg swelling. left foot pain better Physical Examination: General Appearance: Comfortable, in no acute respiratory distress, co-operative . frail appearing female Vitals reviewed and noted as below Lungs: Normal respiratory rate/effort. Breath sounds bilateral equal and clear Heart: normal rate. s1s2 normal. No rub or gallop. Extremities: no edema, left foot dressed. scab/ulceration on Rt foot as well, no active drainage there. No varicose veins. b/l hand deformity noted Neurological: Patient is alert, awake and oriented to person, place and time. No focal deficit. Strength bilateral appropriate and equal Skin: Warm and dry. No rash. Palpitation: Normal elasticity for age Abdomen: Abdomen is soft. Bowel sounds +. There is no abdominal tenderness, no guarding/rigidity no organomegaly Psych: normal insight and normal affect/mood MSK: left foot swelling +. b/l hand digits deformity due to arthritis : kidney or bladder not palpable Labs/imaging/EKG reviewed. Past medical history, past surgical history, family history, social history, allergy reviewed and noted as below Family hx: no hx of CKD. Rest non-contributory WORK UP UA: 30 protein trace blood RBC 2-5 and 3+ glucose CXR negative TSAT 6% Serum creatinine 1.9 in 2016 and 1.1 in 2014 Objective - Vital Signs/Intake and Output Vital Signs (last 24 hours): Temp Pulse Resp BP Pulse Ox 97.9 F 93 H 20 135/74 99 09/13/16 07:30 09/13/16 09:54 09/13/16 07:30 09/13/16 09:54 09/13/16 07:30 Intake and Output: 09/13/16 09/13/16 06:59 18:59 Intake Total 600 Balance 600 - Medications Medications: Current Medications Acetaminophen (Tylenol 650mg/20.3ml Solution Ud) 650 mg PO Q6H PRN PRN Reason: fever Last Admin: 09/08/16 05:11 Dose: 650 mg Aspirin (Ecotrin) 81 mg PO DAILY [facility] Last Admin: 09/13/16 09:56 Dose: 81 mg Cadexomer Iodine (Iodosorb) 0 gm TOP DAILY [facility] Last Admin: 09/13/16 09:58 Dose: 1 gm Collagenase (Santyl) 0 gm TOP DAILY [facility] Last Admin: 09/13/16 10:14 Dose: 1 applic Ergocalciferol (Drisdol 50,000 Intl Units Cap) 1 cap PO Q7D [facility] Stop: 10/29/16 09:31 Last Admin: 09/10/16 10:18 Dose: 1 cap Ferrous Gluconate (Fergon) 324 mg PO TID [facility] Last Admin: 09/13/16 10:07 Dose: 324 mg Heparin Sodium (Porcine) (Heparin) 5,000 units SC Q12 [facility] PRN Reason: Protocol Last Admin: 09/13/16 09:58 Dose: 5,000 units Meropenem 1g/NS 100mL IVPB (Meropenem 1g/Ns 100ml Ivpb) 1 gm in 100 mls @ 100 mls/hr IVPB Q12 [facility] PRN Reason: Protocol Stop: 09/17/16 10:01 Last Admin: 09/13/16 10:01 Dose: 100 mls/hr Iron Sucrose 100 mg/ Sodium (Chloride) 105 mls @ 210 mls/hr IVPB DAILY [facility] Stop: 09/15/16 12:01 Last Admin: 09/13/16 10:02 Dose: 210 mls/hr Insulin Detemir (Levemir) 12 unit SC AMHS [facility] Last Admin: 09/13/16 10:00 Dose: 12 unit Insulin Human Regular (Humulin R Med) 0 units SC ACHS [facility] PRN Reason: Protocol Last Admin: 09/13/16 08:10 Dose: 3 units Losartan Potassium (Cozaar) 50 mg PO DAILY [facility] Last Admin: 09/13/16 09:54 Dose: 50 mg Magnesium Oxide (Mag-Ox) 400 mg PO DAILY [facility] Last Admin: 09/13/16 10:01 Dose: 400 mg Megestrol Acetate (Megace) 40 mg PO DAILY [facility] Last Admin: 09/13/16 10:01 Dose: 40 mg Metoprolol Succinate (Toprol Xl) 50 mg PO BRK [facility] Last Admin: 09/13/16 08:11 Dose: 50 mg Multivitamins (Thera Tab) 1 tab PO 0800 [facility] Last Admin: 09/13/16 08:11 Dose: 1 tab Mupirocin (Bactroban Ointment) 0 gm TOP BID [facility] Last Admin: 09/12/16 18:04 Dose: Not Given Pantoprazole Sodium (Protonix Susp) 40 mg PO 0600 [facility] Last Admin: 09/13/16 05:34 Dose: 40 mg Sodium Bicarbonate (Sodium Bicarbonate Tab) 650 mg PO TID [facility] - Labs Labs: 09/13/16 05:45 09/13/16 05:45 PT 11.4 Seconds (9.9-11.8) 09/07/16 16:30 INR 1.06 (0.93-1.08) 09/07/16 16:30 APTT 32.6 Seconds (23.7-30.8) H 09/07/16 16:30
--- NOTE | 2016-09-13 12:09 | CP.PCM.PN ---
Subjective - Date & Time of Evaluation Date of Evaluation: 09/13/16 Time of Evaluation: 10:30 - Subjective Subjective: Comfortable, not in distress, has loose bowel movement but not watery. No fevers overnight. Objective - Vital Signs/Intake and Output Vital Signs (last 24 hours): Temp Pulse Resp BP Pulse Ox 97.9 F 93 H 20 135/74 99 09/13/16 07:30 09/13/16 08:11 09/13/16 07:30 09/13/16 08:11 09/13/16 07:30 Intake and Output: 09/13/16 09/13/16 06:59 18:59 Intake Total 600 Balance 600 - Medications Medications: Current Medications Acetaminophen (Tylenol 650mg/20.3ml Solution Ud) 650 mg PO Q6H PRN PRN Reason: fever Last Admin: 09/08/16 05:11 Dose: 650 mg Aspirin (Ecotrin) 81 mg PO DAILY [facility] Last Admin: 09/12/16 09:39 Dose: 81 mg Cadexomer Iodine (Iodosorb) 0 gm TOP DAILY [facility] Last Admin: 09/11/16 09:36 Dose: 1 gm Collagenase (Santyl) 0 gm TOP DAILY [facility] Last Admin: 09/12/16 09:37 Dose: 1 applic Ergocalciferol (Drisdol 50,000 Intl Units Cap) 1 cap PO Q7D [facility] Stop: 10/29/16 09:31 Last Admin: 09/10/16 10:18 Dose: 1 cap Ferrous Gluconate (Fergon) 324 mg PO TID [facility] Last Admin: 09/12/16 18:02 Dose: 324 mg Heparin Sodium (Porcine) (Heparin) 5,000 units SC Q12 [facility] PRN Reason: Protocol Last Admin: 09/12/16 21:14 Dose: 5,000 units Meropenem 1g/NS 100mL IVPB (Meropenem 1g/Ns 100ml Ivpb) 1 gm in 100 mls @ 100 mls/hr IVPB Q12 [facility] PRN Reason: Protocol Stop: 09/17/16 10:01 Last Admin: 09/12/16 21:09 Dose: 100 mls/hr Iron Sucrose 100 mg/ Sodium (Chloride) 105 mls @ 210 mls/hr IVPB DAILY [facility] Stop: 09/15/16 12:01 Last Admin: 09/12/16 11:00 Dose: 210 mls/hr Insulin Detemir (Levemir) 12 unit SC [facility] Insulin Human Regular (Humulin R Med) 0 units SC [facility] PRN Reason: Protocol Last Admin: 09/13/16 08:10 Dose: 3 units Losartan Potassium (Cozaar) 50 mg PO DAILY [facility] Last Admin: 09/12/16 09:39 Dose: 50 mg Magnesium Oxide (Mag-Ox) 400 mg PO DAILY [facility] Last Admin: 09/12/16 10:00 Dose: Not Given Megestrol Acetate (Megace) 40 mg PO DAILY [facility] Last Admin: 09/12/16 09:39 Dose: 40 mg Metoprolol Succinate (Toprol Xl) 50 mg PO BRK [facility] Last Admin: 09/13/16 08:11 Dose: 50 mg Multivitamins (Thera Tab) 1 tab PO 0800 [facility] Last Admin: 09/13/16 08:11 Dose: 1 tab Mupirocin (Bactroban Ointment) 0 gm TOP BID [facility] Last Admin: 09/12/16 18:04 Dose: Not Given Pantoprazole Sodium (Protonix Susp) 40 mg PO 0600 [facility] Last Admin: 09/13/16 05:34 Dose: 40 mg Sodium Bicarbonate (Sodium Bicarbonate Tab) 1,300 mg PO TID [facility] Last Admin: 09/12/16 18:02 Dose: 1,300 mg - Labs Labs: 09/13/16 05:45 09/13/16 05:45 PT 11.4 Seconds (9.9-11.8) 09/07/16 16:30 INR 1.06 (0.93-1.08) 09/07/16 16:30 APTT 32.6 Seconds (23.7-30.8) H 09/07/16 16:30 - Constitutional Appears: Non-toxic, No Acute Distress - Head Exam Head Exam: NORMAL INSPECTION - ENT Exam ENT Exam: Mucous Membranes Moist - Neck Exam Neck Exam: absent: Meningismus - Respiratory Exam Respiratory Exam: Decreased Breath Sounds - Cardiovascular Exam Cardiovascular Exam: +S1, +S2 - GI/Abdominal Exam GI & Abdominal Exam: Soft. absent: Tenderness - Extremities Exam Additional comments: left foot with dressings in place Assessment and Plan - Assessment and Plan (Free Text) Plan: Assessment Acute osteomyelitis of the left foot; growing beta hemolytic strep DM Plan Continue Merrem for 4-6 weeks with weekly ESR, CRP, CBC, CMP will follow clinically while the patient is in the hospital
--- NOTE | 2016-09-13 14:03 | CP.PCM.PN ---
<Terrie Lai - Last Filed: 09/13/16 14:08> Subjective - Date & Time of Evaluation Date of Evaluation: 09/13/16 Time of Evaluation: 13:59 - Subjective Subjective: 61 year old female was seen at bedside for left foot cellulitis and sub met 1 ulceration. Patient seen resting comfortably, AAOx3 and NAD. Patient denies any acute events overnight. Patient reports continued tenderness to her left foot. She denies any n/v/f/c/sob/cp. Objective - Vital Signs/Intake and Output Vital Signs (last 24 hours): Temp Pulse Resp BP Pulse Ox 97.9 F 93 H 20 135/74 99 09/13/16 07:30 09/13/16 09:54 09/13/16 07:30 09/13/16 09:54 09/13/16 07:30 Intake and Output: 09/13/16 09/13/16 06:59 18:59 Intake Total 600 Balance 600 - Medications Medications: Current Medications Acetaminophen (Tylenol 650mg/20.3ml Solution Ud) 650 mg PO Q6H PRN PRN Reason: fever Last Admin: 09/08/16 05:11 Dose: 650 mg Aspirin (Ecotrin) 81 mg PO DAILY [facility] Last Admin: 09/13/16 09:56 Dose: 81 mg Cadexomer Iodine (Iodosorb) 0 gm TOP DAILY [facility] Last Admin: 09/13/16 09:58 Dose: 1 gm Collagenase (Santyl) 0 gm TOP DAILY [facility] Last Admin: 09/13/16 10:14 Dose: 1 applic Ergocalciferol (Drisdol 50,000 Intl Units Cap) 1 cap PO Q7D [facility] Stop: 10/29/16 09:31 Last Admin: 09/10/16 10:18 Dose: 1 cap Ferrous Gluconate (Fergon) 324 mg PO TID [facility] Last Admin: 09/13/16 10:07 Dose: 324 mg Heparin Sodium (Porcine) (Heparin) 5,000 units SC Q12 [facility] PRN Reason: Protocol Last Admin: 09/13/16 09:58 Dose: 5,000 units Meropenem 1g/NS 100mL IVPB (Meropenem 1g/Ns 100ml Ivpb) 1 gm in 100 mls @ 100 mls/hr IVPB Q12 [facility] PRN Reason: Protocol Stop: 09/17/16 10:01 Last Admin: 09/13/16 10:01 Dose: 100 mls/hr Iron Sucrose 100 mg/ Sodium (Chloride) 105 mls @ 210 mls/hr IVPB DAILY [facility] Stop: 09/15/16 12:01 Last Admin: 09/13/16 10:02 Dose: 210 mls/hr Insulin Detemir (Levemir) 12 unit SC AMHS [facility] Last Admin: 09/13/16 10:00 Dose: 12 unit Insulin Human Regular (Humulin R Med) 0 units SC ACHS [facility] PRN Reason: Protocol Last Admin: 09/13/16 12:02 Dose: 8 units Losartan Potassium (Cozaar) 50 mg PO DAILY [facility] Last Admin: 09/13/16 09:54 Dose: 50 mg Magnesium Oxide (Mag-Ox) 400 mg PO DAILY [facility] Last Admin: 09/13/16 10:01 Dose: 400 mg Megestrol Acetate (Megace) 40 mg PO DAILY [facility] Last Admin: 09/13/16 10:01 Dose: 40 mg Metoprolol Succinate (Toprol Xl) 50 mg PO BRK [facility] Last Admin: 09/13/16 08:11 Dose: 50 mg Multivitamins (Thera Tab) 1 tab PO 0800 [facility] Last Admin: 09/13/16 08:11 Dose: 1 tab Mupirocin (Bactroban Ointment) 0 gm TOP BID [facility] Last Admin: 09/13/16 11:56 Dose: 1 applic Pantoprazole Sodium (Protonix Susp) 40 mg PO 0600 [facility] Last Admin: 09/13/16 05:34 Dose: 40 mg Sodium Bicarbonate (Sodium Bicarbonate Tab) 650 mg PO TID [facility] - Labs Labs: 09/13/16 05:45 09/13/16 05:45 PT 11.4 Seconds (9.9-11.8) 09/07/16 16:30 INR 1.06 (0.93-1.08) 09/07/16 16:30 APTT 32.6 Seconds (23.7-30.8) H 09/07/16 16:30 - Constitutional Appears: Non-toxic, No Acute Distress - Extremities Exam Additional comments: Left foot focused exam: VASC: DP and PT pulses are palpable 2/4, UNIT COORDINATOR: < 3 sec x 4, TG: warm to cool, no pitting or non-pitting edema noted, superficial erythema noted surrounding forefoot DERM: Superficial wound noted to plantar 1st metatarsal head with hyperkeratotic rim, wound base is necrotic with fibrotic border, no malodor, no drainage noted, no probe to bone, no undermining or tunneling noted, superficial epidermal layer shedding noted, localized erythema noted on the dorsum of the left forefoot NEURO: Gross sensation intact ORTHO: Tenderness on palpation of the lesion site, left hallux amputation, contracted digits 2-4 noted - Neurological Exam Neurological Exam: Alert, Awake, Oriented x3 - Psychiatric Exam Psychiatric exam: Normal Affect, Normal Mood Assessment and Plan - Assessment and Plan (Free Text) Assessment: 61 year old female with left foot cellulitis and open ulceration Plan: Patient examined and evaluated at bedside discussed with attending, Dr. Mattson chart, labs, vitals reviewed Continue IV abx as per ID; meropenem santyl applied to left foot plantar ulcer, bactroban to dorsum of left foot left foot dressed with adaptic, 4x4, ABD, kerlix pt to ambulate in surgical shoe upon D/C patient to have home nursing change dressing on , , pt to [facility] on Sunday pt to have home physical therapy Podiatry will continue to follow the pt while in-house <Leatha Mattson - Last Filed: 09/16/16 14:47> Objective - Vital Signs/Intake and Output Vital Signs (last 24 hours): Temp Pulse Resp BP Pulse Ox 98.4 F 95 H 20 156/75 H 100 09/13/16 16:00 09/13/16 16:00 09/13/16 16:00 09/13/16 16:00 09/13/16 16:00 - Labs Labs: 09/13/16 05:45 09/13/16 05:45 PT 11.4 Seconds (9.9-11.8) 09/07/16 16:30 INR 1.06 (0.93-1.08) 09/07/16 16:30 APTT 32.6 Seconds (23.7-30.8) H 09/07/16 16:30 Attending/Attestation - Attestation I have personally seen and examined this patient.: Yes I have fully participated in the care of the patient.: Yes I have reviewed all pertinent clinical information, including history, physical exam and plan: Yes
[2016-09-13 16:32] VITALS: BP 156/75; PULSE 95; TEMP 98.4; O2SAT 100
[2016-09-13 17:05] LABS: ALBUMIN (PEP) 2.3 g/dL (3.8-4.8); ALPHA-1-GLOBULIN (PEP) 0.6 g/dL (0.2-0.3)
--- NOTE | 2016-09-25 18:50 | VASCULAR ---
PROCEDURE: Ultrasound and fluoroscopically placed left upper extremity PICC line. HISTORY: Limited IV access. Needs PICC line. PHYSICIAN(S): Ren Ortiz MD. TECHNIQUE: The relative risks and indications of the procedure were explained to the patient and consent obtained. The patient was placed supine on the arteriogram table and the left arm prepped and draped in the usual sterile fashion. A tourniquet was applied to the left axilla. 1% Xylocaine was used to anesthetize the skin and soft tissues at the puncture site above the elbow. The left basilic vein was punctured under direct ultrasound guidance with a micropuncture set. A 0.018 guidewire was advanced centrally and used to measure the length to the SVC/RA junction. A 5 [place] single-lumen PICC line 38 cm long was advanced to the SVC/RA junction. The catheter was flushed and secured. The patient tolerated the procedure well. IMPRESSION: 1. Ultrasound and fluoroscopically placed left upper extremity PICC line. A 5 [place] single-lumen PICC line 38 cm long was advanced to the SVC/RA junction.
== END 2016-09-13 20:00 | disposition home or self-care (01) | DRG 584 ==
LOC: ED 13:59 → ERH 17:41 → 5RSO 21:33
PROVIDERS: ADMIT Internal Medicine; ATTEND Internal Medicine
PROC: 06H033Z Insertion of Infusion Device into Inferior Vena Cava, Percutaneous Approach (ICD-10-PCS; 2016-09-07)
PROC: 30233N1 Transfusion of Nonautologous Red Blood Cells into Peripheral Vein, Percutaneous Approach (ICD-10-PCS; principal; 2016-09-10)
DX: A41.9 Sepsis, unspecified organism (principal); M86.172 Other acute osteomyelitis, left ankle and foot; E87.2 Acidosis; E11.40 Type 2 diabetes mellitus with diabetic neuropathy, unspecified; N17.9 Acute kidney failure, unspecified; N18.4 Chronic kidney disease, stage 4 (severe); K22.2 Esophageal obstruction; E11.621 Type 2 diabetes mellitus with foot ulcer; L97.509 Non-pressure chronic ulcer of other part of unspecified foot with unspecified severity; L03.116 Cellulitis of left lower limb; E11.65 Type 2 diabetes mellitus with hyperglycemia; E87.5 Hyperkalemia; E11.69 Type 2 diabetes mellitus with other specified complication; I12.9 Hypertensive chronic kidney disease with stage 1 through stage 4 chronic kidney disease, or unspecified chronic kidney disease; K21.9 Gastro-esophageal reflux disease without esophagitis; I73.9 Peripheral vascular disease, unspecified; I25.10 Atherosclerotic heart disease of native coronary artery without angina pectoris; D64.9 Anemia, unspecified; E61.1 Iron deficiency; R70.0 Elevated erythrocyte sedimentation rate; B95.1 Streptococcus, group B, as the cause of diseases classified elsewhere; N28.1 Cyst of kidney, acquired; Z89.412 Acquired absence of left great toe

== ENCOUNTER 2017-04-10 15:30 | Inpatient (IN) | payer MEDICAID ==
[2017-04-10 15:30] VITALS: PULSE 122; BMI 38.2
[2017-04-10 16:25] LABS: BASO # 0.01 K/mm3 (0.0-2.0); BASO % 0.1 % (0.0-3.0); EOS # 0.1 (0.0-0.7); EOS % 1.5 % (1.5-5.0); GRAN # 5.79 (1.4-6.5); GRAN % 70.7 % (50.0-68.0); LYMPH # 1.5 (1.2-3.4); LYMPH % 18.8 % (22.0-35.0); MEAN CELL VOLUME 95.8 fl (80.0-105.0); MEAN CORPUSCULAR HEMOGLOBIN 29.5 pg (25.0-35.0); MEAN CORPUSCULAR HGB CONC 30.8 g/dl (31.0-37.0); MEAN PLATELET VOLUME 10.1 fl (7.0-11.0); MONO # 0.7 (0.1-0.6); MONO % 8.9 % (1.0-6.0); RBC 2.61 10^6/uL (3.5-6.1); RED CELL DISTRIBUTION WIDTH 15.4 % (11.5-14.5); WHITE BLOOD COUNT 8.2 10^3/ul (4.5-11.0)
[2017-04-10 16:36] LABS: INR 1.28 (0.93-1.08); PROTHROMBIN TIME 14.7 SECONDS (9.4-12.5)
[2017-04-10 16:39] LABS: ALBUMIN 4.2 g/dL (3.0-4.8); CALCIUM 10.9 mg/dL (8.4-10.5)
[2017-04-10] MEDS ORDERED: Sodium Chloride 0.9% 1,000 ML IV STA (16:40)
[2017-04-10] MEDS ORDERED: Dextrose 50% SYRINGE Inj (50 ml) IVP STA (16:41)
[2017-04-10] MEDS ORDERED: Insulin Regular 1 UNITS/0.01 ML ML IV STA (16:41)
[2017-04-10] MEDS ORDERED: Sodium Bicarbonate (8.4%) 50 Meq Syringe IVP ONE (16:41)
[2017-04-10 16:51] LABS: HEMOGLOBIN 7.7 g/dL (12.0-16.0)
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
[2017-04-10] MEDS ORDERED: Vancomycin 1gm in NS 250ml 1 GM/250 ML BAG IVPB STA (17:26)
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
[2017-04-10] MEDS ORDERED: Sod Polystyrene Sulf 15 gm/60 ml Susp PO ONE (20:00)
[2017-04-10] MEDS: Aztreonam 1 Gm in NS 100mL 100 ML IVPB SCH (22:24)
[2017-04-10] MEDS: Sodium Chloride 0.9% 1,000 ML IV SCH (22:25)
[2017-04-10] MEDS: Insulin Reg-LOW-Coverage SC SCH (23:03)
[2017-04-11 02:12] LABS: CALCIUM 10.8 mg/dL (8.4-10.5)
[2017-04-11] MEDS: Aztreonam 1 Gm in NS 100mL 100 ML IVPB SCH (06:14)
[2017-04-11] MEDS: Sodium Chloride 0.9% 1,000 ML IV SCH (07:06)
[2017-04-11 07:30] LABS: EOS # 0.1 (0.0-0.7); GRAN # 6.18 (1.4-6.5); GRAN % 93.9 % (50.0-68.0); HEMOGLOBIN 8.5 g/dL (12.0-16.0); LYMPH # 0.1 (1.2-3.4); MEAN CELL VOLUME 94.5 fl (80.0-105.0); MEAN CORPUSCULAR HEMOGLOBIN 29.1 pg (25.0-35.0); MEAN CORPUSCULAR HGB CONC 30.8 g/dl (31.0-37.0); MEAN PLATELET VOLUME 10.2 fl (7.0-11.0); MONO # 0.1 (0.1-0.6); MONO % 2.1 % (1.0-6.0); PLATELET COUNT 360 10^3/uL (120.0-450.0); RBC 2.92 10^6/uL (3.5-6.1); RED CELL DISTRIBUTION WIDTH 15.5 % (11.5-14.5); WHITE BLOOD COUNT 6.6 10^3/ul (4.5-11.0)
[2017-04-11 08:00] LABS: ALBUMIN 4.2 g/dL (3.0-4.8); CALCIUM 10.8 mg/dL (8.4-10.5)
[2017-04-11 08:31] LABS: IRON 15 ug/dL (45-180)
[2017-04-11 08:46] LABS: % IRON SATURATION 8 % (20-55); TOTAL IRON BINDING CAPACITY 189 ug/dL (265-497)
[2017-04-11 09:19] LABS: BAND 4 % (0-2); HYPOCHROMIA 1+; LYMPHOCYTE 3 % (22.0-35.0); MONOCYTE 3 % (1.0-6.0); NEUTROPHIL 90 % (50.0-70.0); PLATELET ESTIMATE NORMAL (NORMAL)
[2017-04-11 09:20] LABS: ANISOCYTOSIS 1+; OVALOCYTES SLIGHT; TEAR DROP CELLS SLIGHT
[2017-04-11] MEDS: Insulin Reg-LOW-Coverage SC SCH ×4 (09:27→22:58)
[2017-04-11] MEDS: Pantoprazole 40 mg EC Tab PO SCH (09:27)
[2017-04-11] MEDS: Multivitamin Therapeutic Tab PO SCH (09:30)
[2017-04-11] MEDS: Metoprolol Succinate 25 mg XL Tab PO SCH (09:31)
[2017-04-11] MEDS ORDERED: Darbepoetin Alfa 40 mcg/ml Inj SC ONE (09:38)
--- NOTE | 2017-04-11 10:39 | RAD ---
PROCEDURE: CHEST RADIOGRAPH, 1 VIEW HISTORY: foot infection COMPARISON: 09/08/2016. FINDINGS: LUNGS: The lungs are well inflated and clear. PLEURA: No pneumothorax or pleural fluid seen. CARDIOVASCULAR: Normal. OSSEOUS STRUCTURES: No significant abnormalities. VISUALIZED UPPER ABDOMEN: Normal. OTHER FINDINGS: None. IMPRESSION: No active pulmonary disease.
--- NOTE | 2017-04-11 10:42 | RAD ---
PROCEDURE: Right Foot Radiographs. HISTORY: diabetic foot infection COMPARISON: None. FINDINGS: BONES: Status post amputation the 2nd to 5th toes. There are surgical deformities/chronic osteomyelitis in the distal 2nd to 5th metatarsals. There is dislocation of the 1st MTP joint. There is diffuse bone demineralization JOINTS: Normal. SOFT TISSUES: Diffuse soft tissue swelling OTHER FINDINGS: None. IMPRESSION: Postsurgical changes/ osteomyelitis in the foot described above.
[2017-04-11] MEDS ORDERED: Meropenem 500 MG in Sodium Chloride 0.9% 50 ML IVPB SCH (10:45)
[2017-04-11] MEDS ORDERED: DAPTOmycin 500 mg Inj (Cubicin) IV SCH (10:45)
[2017-04-11] MEDS ORDERED: Barium Sulfate Susp 2.1% w/v, 2.0% w/w 450 mL Bottle PO ONE (10:47)
[2017-04-11 10:49] LABS: URINE BILIRUBIN NEGATIVE (NEGATIVE); URINE BLOOD TRACE-INTACT (NEGATIVE); URINE GLUCOSE (UA) 500 mg/dL (NEGATIVE); URINE LEUKOCYTE ESTERASE NEGATIVE Leu/uL (NEGATIVE); URINE NITRATE NEGATIVE (NEGATIVE); URINE PROTEIN 30 mg/dL (<30 mg/dL); URINE UROBILINOGEN 0.2 E.U./dL (<1 E.U./dL)
[2017-04-11 10:50] LABS: URINE APPEARANCE CLEAR (CLEAR); URINE COLOR LIGHT YELLOW (YELLOW)
[2017-04-11 11:04] LABS: URINE EPITHELIAL CELLS 0 - 2 /hpf (0-5); URINE RBC 0 - 2 /hpf (0-2); URINE WBC 0 - 2 /hpf (0-6)
[2017-04-11 11:05] LABS: URINE BACTERIA TRACE (NEG)
[2017-04-11] MEDS: Meropenem 500 MG in Sodium Chloride 0.9% 100 ML IVPB SCH ×2 (11:31→22:59)
[2017-04-11] MEDS: Sodium Chloride 0.45% 1,000 ML IV SCH ×3 (11:33→22:59)
[2017-04-11 11:58] LABS: ARTERIAL BLOOD GAS HCO3 12.4 mmol/L (21-28); ARTERIAL BLOOD GAS O2 SAT 98.1 % (95-98); ARTERIAL BLOOD GAS PCO2 20 mm/Hg (35-45)
--- NOTE | 2017-04-11 13:02 | CON ---
DATE: 04/11/2017 LOCATION: The patient is in room 376, bed 1. CHIEF COMPLAINT: Fever times several days. HISTORY OF PRESENT ILLNESS: This is a 61-year-old female with history of diverticulitis and history of left foot osteomyelitis, peripheral vascular disease, hypertension, GERD, pseudomembranous colitis, cataract and she was admitted to the emergency room with acute renal insufficiency, hyperkalemia and a foot infection. The patient had a temperature of 102.4. Infectious Disease consultation requested. The patient states that she denies any flu-like symptoms. She is having fevers and chills and she denies any cough, shortness of breath or any chest pain. No abdominal pain. No diarrhea or constipation or bright red blood per rectum. No melena. PAST MEDICAL HISTORY: Significant for coronary artery disease, hypertension, diabetes, diverticulitis and osteomyelitis of the left foot, pseudomembranous colitis and cataract, GERD. PAST SURGICAL HISTORY: Significant for orthopedic surgery, cholecystectomy and a . ALLERGIES: THE PATIENT IS ALLERGIC TO PENICILLIN, CLINDAMYCIN CEFTRIAXONE, SULFA AND TRIMETHOPRIM. PHYSICAL EXAMINATION: GENERAL: The patient is in bed, appearing chronically ill, debilitated, end-stage, cachectic. VITAL SIGNS: Temperature of 100.3, T max was 102.4 and heart rate of 150, respiratory rate of 20 and blood pressure was 150/60. The patient's BMI is 17.6. The patient appears chronically ill, cachectic, end-stage with temporal wasting. HEENT: Examination of HEENT is unremarkable. NECK: Supple. LUNGS: Have decreased breath sounds. HEART: Normal S1 and S2. ABDOMEN: Soft, nontender. No organomegaly. No rebound or guarding. Essentially benign abdominal examination. LABORATORY DATA: Laboratory examination reveals the patient's white count is 6.6, hemoglobin of 8 and platelets of 360 and chemistries reveals a BUN of 45, creatinine of 2.5. LFTs are noted. Chest x-ray is done. Foot x-ray is done. The results are not available. EKG is done. Results are not available. The emergency room chart documentation is reviewed and history and physical examination is reviewed. Examination of the patient's right foot reveals a second toe necrosis. The foot is erythematous. The left foot and ankle has an ulcer with erythema on the lateral aspect of the ulcer and the patient's creatinine before this admission was 1.1. On this admission, she is admitted with a 3.1 creatinine. LFTs are elevated with alk phos is elevated with C-reactive protein is elevated and urinalysis is not available. ASSESSMENT AND PLAN: This is a 61-year-old female with history of diverticulitis, osteomyelitis, left foot osteoarthritis, diabetic, hypertension, gastroesophageal reflux disease, pseudomembranous colitis with fever. The patient did have diarrhea, tachycardia, red hot foot on the right and left ankle ulcer without erythema. Severe sepsis with a right foot cellulitis with a second toe necrosis and a left lateral ankle ulcer with cellulitis with acute kidney injury. Creatinine is changed from 1.1 to 3.1 and we will treat the patient with Zyvox and meropenem. Pending urinalysis, urine culture, wound cultures and blood cultures and imaging. We will treat the patient with Zyvox and meropenem pending further workup. Carroll Castellano MD
--- NOTE | 2017-04-11 13:11 | CARD ---
APPROVED REPORT EKG Measurement Heart [id number] <Conclusion> Sinus tachycardia Otherwise normal ECG
--- NOTE | 2017-04-11 13:56 | CP.PCM.PN ---
Subjective - Date & Time of Evaluation Date of Evaluation: 04/11/17 Time of Evaluation: 13:56 Objective - Vital Signs/Intake and Output Vital Signs (last 24 hours): Temp Pulse Resp BP Pulse Ox 100.6 F H 149 H 21 161/68 H 100 04/11/17 12:02 04/11/17 12:00 04/11/17 12:00 04/11/17 12:00 04/11/17 12:00 Intake and Output: 04/11/17 04/11/17 06:59 18:59 Intake Total 575 240 Balance 575 240 - Medications Medications: Current Medications Aspirin (Ecotrin) 81 mg PO DAILY [facility] Last Admin: 04/11/17 09:30 Dose: 81 mg Cyanocobalamin (Vitamin B12 1000 Mcg Tab) 500 mcg PO DAILY [facility] Last Admin: 04/11/17 09:27 Dose: 500 mcg Ferrous Sulfate (Feosol) 324 mg PO TID [facility] Last Admin: 04/11/17 11:52 Dose: 324 mg Sodium Chloride (Sodium Chloride 0.45%) 1,000 mls @ 125 mls/hr IV .Q8H [facility] Last Admin: 04/11/17 11:33 Dose: 125 mls/hr Linezolid (Zyvox 600mg/300ml D5w) 600 mg in 300 mls @ 200 mls/hr IVPB Q12 MALA PRN Reason: Protocol Stop: 04/20/17 10:42 Meropenem 500 mg/ Sodium (Chloride) 100 mls @ 100 mls/hr IVPB Q12H [facility] Last Admin: 04/11/17 11:31 Dose: 100 mls/hr Insulin Human Regular (Humulin R Low) 0 units SC ACHS [facility] PRN Reason: Protocol Last Admin: 04/11/17 11:52 Dose: Not Given Megestrol Acetate (Megace) 40 mg PO DAILY [facility] Last Admin: 04/11/17 09:29 Dose: 40 mg Metoprolol Succinate (Toprol Xl) 25 mg PO DAILY [facility] Last Admin: 04/11/17 09:31 Dose: 25 mg Multivitamins (Thera Tab) 1 tab PO DAILY [facility] Last Admin: 04/11/17 09:30 Dose: 1 tab Ondansetron HCl (Zofran Inj) 4 mg IVP Q4H PRN PRN Reason: Nausea/Vomiting Pantoprazole Sodium (Protonix Ec Tab) 40 mg PO DAILY [facility] Last Admin: 04/11/17 09:27 Dose: 40 mg Sodium Bicarbonate (Sodium Bicarbonate Tab) 1,300 mg PO QID [facility] Last Admin: 04/11/17 11:50 Dose: 1,300 mg Vitamin B Complex/Vit C/Folic Acid (Nephro-Jenny) 1 tab PO 0800 [facility] - Labs Labs: 04/11/17 06:30 04/11/17 06:30 PT 14.7 SECONDS (9.4-12.5) H 04/10/17 16:05 INR 1.28 (0.93-1.08) H 04/10/17 16:05 APTT 33.0 Seconds (25.1-36.5) 04/10/17 16:05
[2017-04-11 14:34] LABS: FOLATE > 20.0 ng/mL
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
[2017-04-11 15:05] LABS: ALBUMIN 3.8 g/dL (3.0-4.8); CALCIUM 9.9 mg/dL (8.4-10.5)
[2017-04-11] MEDS: Linezolid 600 mg in D5W 300 ml 600 MG/300 ML BAG IVPB SCH (15:30)
--- NOTE | 2017-04-11 16:09 | CT ---
PROCEDURE: CT Abdomen and Pelvis without intravenous contrast HISTORY: fever inc LFT COMPARISON: None. TECHNIQUE: Without contrast.. Contrast Dose: Radiation dose: Total exam DLP = 192 mGy-cm. This CT exam was performed using one or more of the following dose reduction techniques: Automated exposure control, adjustment of the mA and/or kV according to patient size, and/or use of iterative reconstruction technique. FINDINGS: LOWER THORAX: Unremarkable. LIVER: Unremarkable. No gross lesion or ductal dilatation. GALLBLADDER AND BILE DUCTS: Unremarkable. PANCREAS: Unremarkable. No gross lesion or ductal dilatation. SPLEEN: Unremarkable. ADRENALS: Unremarkable. No mass. KIDNEYS AND URETERS: Unremarkable. No hydronephrosis. No solid mass. VASCULATURE: Unremarkable. No aortic aneurysm. BOWEL: There is moderate diverticulosis of the sigmoid colon. There is no evidence of diverticulitis APPENDIX: Unremarkable. Normal appendix. PERITONEUM: Unremarkable. No free fluid. No free air. LYMPH NODES: Unremarkable. No enlarged lymph nodes. BLADDER: Unremarkable. REPRODUCTIVE: Unremarkable. BONES: No acute fracture. OTHER FINDINGS: None. IMPRESSION: No acute intra-abdominal findings
--- NOTE | 2017-04-11 16:26 | CP.PCM.PN ---
<Asif Newell - Last Filed: 04/11/17 16:59> Subjective - Date & Time of Evaluation Date of Evaluation: 04/11/17 Time of Evaluation: 07:30 - Subjective Subjective: Asif Newell DO PGY1 - IM Progress Note Patient seen and examined at bedside. Overnight, patient became tachycardic and febrile. Currently complaining of fever and chills, still with persistent pain in her foot. She also reports diarrhea, which she has chronically. She denies chest pain, shortness of breath, abdominal pain, nausea, vomiting, dysuria, hematuria. Objective - Vital Signs/Intake and Output Vital Signs (last 24 hours): Temp Pulse Resp BP Pulse Ox 99.9 F H 149 H 21 161/68 H 100 04/11/17 14:30 04/11/17 12:00 04/11/17 12:00 04/11/17 12:00 04/11/17 12:00 Intake and Output: 04/11/17 04/11/17 06:59 18:59 Intake Total 575 420 Balance 575 420 - Medications Medications: Current Medications Aspirin (Ecotrin) 81 mg PO DAILY [facility] Last Admin: 04/11/17 09:30 Dose: 81 mg Cyanocobalamin (Vitamin B12 1000 Mcg Tab) 500 mcg PO DAILY [facility] Last Admin: 04/11/17 09:27 Dose: 500 mcg Ferrous Sulfate (Feosol) 324 mg PO TID [facility] Last Admin: 04/11/17 11:52 Dose: 324 mg Sodium Chloride (Sodium Chloride 0.45%) 1,000 mls @ 125 mls/hr IV .Q8H [facility] Last Admin: 04/11/17 11:33 Dose: 125 mls/hr Linezolid (Zyvox 600mg/300ml D5w) 600 mg in 300 mls @ 200 mls/hr IVPB Q12 [facility] PRN Reason: Protocol Stop: 04/20/17 10:42 Meropenem 500 mg/ Sodium (Chloride) 100 mls @ 100 mls/hr IVPB Q12H [facility] Last Admin: 04/11/17 11:31 Dose: 100 mls/hr Insulin Human Regular (Humulin R Low) 0 units SC ACHS [facility] PRN Reason: Protocol Last Admin: 04/11/17 11:52 Dose: Not Given Megestrol Acetate (Megace) 40 mg PO DAILY [facility] Last Admin: 04/11/17 09:29 Dose: 40 mg Metoprolol Succinate (Toprol Xl) 25 mg PO DAILY [facility] Last Admin: 04/11/17 09:31 Dose: 25 mg Multivitamins (Thera Tab) 1 tab PO DAILY [facility] Last Admin: 04/11/17 09:30 Dose: 1 tab Mupirocin (Bactroban Ointment) 0 gm TOP BID [facility] Ondansetron HCl (Zofran Inj) 4 mg IVP Q4H PRN PRN Reason: Nausea/Vomiting Pantoprazole Sodium (Protonix Ec Tab) 40 mg PO DAILY [facility] Last Admin: 04/11/17 09:27 Dose: 40 mg Sodium Bicarbonate (Sodium Bicarbonate Tab) 1,300 mg PO QID [facility] Last Admin: 04/11/17 11:50 Dose: 1,300 mg Vitamin B Complex/Vit C/Folic Acid (Nephro-Jenny) 1 tab PO 0800 [facility] - Labs Labs: 04/11/17 06:30 04/11/17 14:25 PT 14.7 SECONDS (9.4-12.5) H 04/10/17 16:05 INR 1.28 (0.93-1.08) H 04/10/17 16:05 APTT 33.0 Seconds (25.1-36.5) 04/10/17 16:05 - Constitutional Appears: Non-toxic, In Acute Distress (mild) - Head Exam Head Exam: ATRAUMATIC - Eye Exam Eye Exam: EOMI, Normal appearance, PERRL - ENT Exam ENT Exam: Mucous Membranes Dry - Neck Exam Neck Exam: Normal Inspection - Respiratory Exam Respiratory Exam: Clear to Ausculation Bilateral, NORMAL BREATHING PATTERN - Cardiovascular Exam Cardiovascular Exam: Tachycardia, REGULAR RHYTHM, +S1, +S2 Additional comments: Flat neck veins - GI/Abdominal Exam GI & Abdominal Exam: Soft, Normal Bowel Sounds. absent: Tenderness, Organomegaly - Extremities Exam Extremities Exam: absent: Calf Tenderness, Pedal Edema Additional comments: Pedal pulses nonpalpable, feet warm to touch without cyanosis. Right foot with amputated 2nd toe, ulcerated with necrotic appearing base, severely tender to the touch. Warm. Left foot bandaged. - Neurological Exam Neurological Exam: Alert, Awake, Oriented x3 - Psychiatric Exam Psychiatric exam: Normal Affect, Normal Mood - Skin Skin Exam: Dry, Intact, Normal Color Additional comments: See extremity exam Assessment and Plan - Assessment and Plan (Free Text) Assessment: 61F with PMH of Diabetes mellitus type 2, anemia, peripheral arterial disease, GERD, osteomyelitis, esophageal stenosis, hypertension, chronic kidney disease, CAD, and arthritis who presents to the ED from the wound care clinic with Dr. Raymond for possible wound infection vs osteomyelitis of the right foot Plan: RLE cellulitis vs osteomyelitis - Patient now septic -Persistent fevers overnight, with persistent tachycardia -Patient has FREDY and Transaminemia; limited administration of NSAIDs and Acetaminophen, prefer use of cooling blanket -ABG with lactate ordered today; lactate elevated at 2.3; sepsis protocol started, ordered repeat lactate in 3 hours, but patient had very poor venous access, repeat not yet collected -Patient was hypernatremic and hyperchloremic, had been receiving fluids, but then IV access failed, and could not reobtain access; ordered PICC line placement, which is pending; meanwhile, encouraged patient to push PO fluids, which she is tolerating -XR of R foot significant for chronic appearing osteomyelitis 2nd to 5th digits -Ordered MRI of both feet, without contrast; per podiatry -Started Azactam and Daptomycin because of patient's allergies and FREDY; switched to Zyvox and Merrem per ID -Patient also has transaminemia; more likely 2/2 passive congestion, but ordered CT A/P and Viral Hepatitis panel -Blood culture shows no growth after 24 hours -Wound culture pending -Urine culture pending; UA negative -ID consulted - Dr. Nair -Podiatry consulted - Dr. Mattson Anemia -H&H stable, no signs of active bleeding -Serum iron studies low; Ferritin markedly elevated, likely acute phase reactant ; B12 and Folate WNL -Continue to monitor FREDY -Likely prerenal, considering septic state; improving -Urine studies pending -Continue IVF hydration and PO hydration -Nephrology consulted (Dr. Reyes), recs appreciated Hyperkalemia -Resolved Hypernatremia -Patient has become hypernatremic overnight -157 after correction for hyperglycemia; 2.3 L free water deficit -Continue 1/2 NS per nephro Elevated LFTs -Patient denies abdominal pain -Trended up since yesterday, then trended down today -Viral hepatitis panel ordered -Abd US and CT A/P ordered -Recheck with AM labs Diabetes mellitus type 2 -low dose sliding scale -Consistent carb diet -Fingersticks ACHS CAD -Continue ASA 81mg po daily GI/DVT prophylaxis -Protonix <Idalia Grover - Last Filed: 04/13/17 16:32> Objective - Vital Signs/Intake and Output Vital Signs (last 24 hours): Temp Pulse Resp BP Pulse Ox 98 F 91 H 20 157/68 H 99 04/13/17 12:00 04/13/17 12:00 04/13/17 12:00 04/13/17 12:00 04/13/17 06:00 Intake and Output: 04/13/17 04/13/17 06:59 18:59 Intake Total 2720 Balance 2720 - Medications Medications: Current Medications Aspirin (Ecotrin) 81 mg PO DAILY [facility] Last Admin: 04/13/17 09:36 Dose: 81 mg Cyanocobalamin (Vitamin B12 1000 Mcg Tab) 500 mcg PO DAILY [facility] Last Admin: 04/13/17 09:36 Dose: 500 mcg Ferrous Sulfate (Feosol) 324 mg PO TID [facility] Last Admin: 04/13/17 09:36 Dose: 324 mg Heparin Sodium (Porcine) (Heparin) 5,000 units SC Q8 [facility] PRN Reason: Protocol Last Admin: 04/13/17 05:44 Dose: 5,000 units Home Med (Home Med) 1 unit PO DAILY@1200 [facility] Linezolid (Zyvox 600mg/300ml D5w) 600 mg in 300 mls @ 200 mls/hr IVPB Q12 [facility] PRN Reason: Protocol Stop: 04/20/17 10:42 Last Admin: 04/13/17 09:38 Dose: 200 mls/hr Sodium Chloride (Sodium Chloride 0.45%) 1,000 mls @ 100 mls/hr IV .Q10H [facility] Insulin Human Regular (Humulin R Low) 0 units SC ACHS [facility] PRN Reason: Protocol Last Admin: 04/13/17 13:11 Dose: 2 units Megestrol Acetate (Megace) 40 mg PO DAILY [facility] Last Admin: 04/13/17 09:36 Dose: 40 mg Metoprolol Succinate (Toprol Xl) 25 mg PO DAILY [facility] Last Admin: 04/13/17 09:37 Dose: 25 mg Multivitamins (Thera Tab) 1 tab PO DAILY [facility] Last Admin: 04/13/17 09:37 Dose: 1 tab Mupirocin (Bactroban Ointment) 0 gm TOP BID [facility] Last Admin: 04/12/17 17:39 Dose: 1 unit Ondansetron HCl (Zofran Inj) 4 mg IVP Q4H PRN PRN Reason: Nausea/Vomiting Pantoprazole Sodium (Protonix Ec Tab) 40 mg PO DAILY [facility] Last Admin: 04/13/17 09:36 Dose: 40 mg Sodium Bicarbonate (Sodium Bicarbonate Tab) 1,300 mg PO QID [facility] Last Admin: 04/13/17 09:40 Dose: 1,300 mg - Labs Labs: 04/13/17 06:45 04/13/17 06:45 PT 14.7 SECONDS (9.4-12.5) H 04/10/17 16:05 INR 1.28 (0.93-1.08) H 04/10/17 16:05 APTT 33.0 Seconds (25.1-36.5) 04/10/17 16:05 Attending/Attestation - Attestation I have personally seen and examined this patient.: Yes I have fully participated in the care of the patient.: Yes I have reviewed all pertinent clinical information, including history, physical exam and plan: Yes Notes (Text): I have seen and examined the patient at bedside. Agree with the above note with the following additions/ exceptions: Briefly this is 61 year old female with history of DM-2, chronic anemia, chronic diarrhea, PAD, GERD, esophageal stenosis, HTN, CKD, CAD and RA who was sent by butter grader for evaluation of suspected osteomyelitis of right foot. Patient is septic. Will start IV antibiotics empirically. Cultures are pending. Will consult ID. She has hypernatremia. Continue IVF as per nephro. She has transamitis. Hep panel and CT scan pending. Urine lytes ordered. Hyperkalemia resolved. She continue to have diarrhea which is chronic. Cdiff is negative. Upon discharge patient will follow up with Dr Chavez. Dr Idalia Grover
[2017-04-11 16:57] LABS: HEPATITIS B SURFACE AG Negative (NEGATIVE)
[2017-04-11 17:15] LABS: HEPATITIS C ANTIBODY NEGATIVE (NEGATIVE)
--- NOTE | 2017-04-11 17:15 | US ---
PROCEDURE: Lower extremity CASSIDY exam HISTORY: Peripheral vascular disease with pain and ulceration. Diabetes PHYSICIAN(S): Ren Ortiz MD. FINDINGS: The resting CASSIDY's are mildly abnormal: Right, 0.77 and left, 0.77 The brachial systolic pressures are symmetric. The high thigh pressures and waveforms are relatively normal. The calf PVR waveforms augment normally. No significant gradients are noted across the thighs. There are 30- 40 mm gradients across both knees. This is consistent with bilateral distal SFA, popliteal, and/ or trifurcation disease. The ankle PVR waveforms, however, are relatively normal. IMPRESSION: 1. Mildly abnormal ABIs at rest. 2. Bilateral distal SFA, popliteal, and/or tibial disease.
[2017-04-11 17:51] LABS: HEPATITIS A IGM NEGATIVE (NEGATIVE); HEPATITIS B CORE AB NEGATIVE (NEGATIVE)
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
--- NOTE | 2017-04-11 18:47 | US ---
HISTORY: transaminemia COMPARISON: CT abdomen pelvis without IV contrast performed 04/11/17 TECHNIQUE: Sonographic evaluation of the abdomen. FINDINGS: LIVER: Measures 13.3 cm in sagittal dimension. Echogenic liver may be seen in setting of hepatic parenchymal disease or fatty infiltration. No focal hepatic mass identified. The main portal vein appears patent with normal directional flow. No intrahepatic bile duct dilatation. GALLBLADDER: Cholecystectomy. COMMON BILE DUCT: Measures 1.2 cm. PANCREAS: Not well visualized. RIGHT KIDNEY: Measures 7.7 x 3.9 x 4.4 cm. 1.3 cm right renal cyst. No obstructing calculus or hydronephrosis identified. LEFT KIDNEY: Measures 7.4 x 4.0 x 4.1cm. No obstructing calculus, hydronephrosis, or renal cyst identified. SPLEEN: Measures approximately 9.6 cm. AORTA: Limited views appear unremarkable. IVC: Limited views appear unremarkable. OTHER FINDINGS: None. IMPRESSION: Echogenic liver may be seen in setting of hepatic parenchymal disease or fatty infiltration. Dilated common bile duct in the setting of cholecystectomy. 1.3 cm right renal cyst.
[2017-04-11 20:06] LABS: VENOUS BLOOD GAS BASE EXCESS -19.8 mmol/L (0.0-2.0); VENOUS BLOOD GAS PO2 50 mm/Hg (30-55)
[2017-04-11 20:26] LABS: VENOUS BLOOD PH 6.98 (7.32-7.43)
[2017-04-11] MEDS ORDERED: Sodium Chloride 0.9% 1,000 ML IV STA (20:46)
[2017-04-12] MEDS: Sodium Chloride 0.45% 1,000 ML IV SCH ×2 (02:57→10:02)
[2017-04-12 07:12] LABS: EOS # 0.3 (0.0-0.7); EOS % 8.1 % (1.5-5.0); GRAN # 3.26 (1.4-6.5); LYMPH # 0.3 (1.2-3.4); MEAN CELL VOLUME 94.4 fl (80.0-105.0); MEAN CORPUSCULAR HEMOGLOBIN 28.7 pg (25.0-35.0); MEAN CORPUSCULAR HGB CONC 30.4 g/dl (31.0-37.0); MONO # 0.3 (0.1-0.6); MONO % 7.9 % (1.0-6.0); RBC 2.51 10^6/uL (3.5-6.1); RED CELL DISTRIBUTION WIDTH 15.5 % (11.5-14.5); WHITE BLOOD COUNT 4.2 10^3/ul (4.5-11.0)
[2017-04-12] MEDS ORDERED: Sodium Chloride 0.9% 1,000 ML IV STA (07:42)
[2017-04-12 07:55] LABS: HEMOGLOBIN 7.2 g/dL (12.0-16.0)
[2017-04-12 07:59] LABS: ALBUMIN 3.1 g/dL (3.0-4.8); CALCIUM 9.4 mg/dL (8.4-10.5)
[2017-04-12] MEDS ORDERED: Multivitamin Vitamin B Complex (Nephro-Vite) Tab PO SCH (08:00)
[2017-04-12 08:20] LABS: ARTERIAL BLOOD GAS HCO3 12.5 mmol/L (21-28); ARTERIAL BLOOD GAS PH 7.45 (7.35-7.45); ARTERIAL BLOOD GAS TCO2 13.1 mmol.L (22-28)
[2017-04-12 08:24] LABS: ARTERIAL BLOOD GAS PCO2 18 mm/Hg (35-45)
[2017-04-12] MEDS: Insulin Reg-LOW-Coverage SC SCH ×4 (08:26→23:33)
[2017-04-12] MEDS: Multivitamin Therapeutic Tab PO SCH (09:51)
[2017-04-12] MEDS ORDERED: VELTASSA 8.4 GM PO SCH (10:00)
[2017-04-12] MEDS: Pantoprazole 40 mg EC Tab PO SCH (10:08)
[2017-04-12] MEDS: Metoprolol Succinate 25 mg XL Tab PO SCH (10:10)
[2017-04-12] MEDS: Meropenem 500 MG in Sodium Chloride 0.9% 100 ML IVPB SCH ×2 (12:00→23:48)
--- NOTE | 2017-04-12 12:16 | CP.PCM.PN ---
<Asif Newell - Last Filed: 04/12/17 12:13> Subjective - Date & Time of Evaluation Date of Evaluation: 04/12/17 Time of Evaluation: 07:30 - Subjective Subjective: Asif Reece DO PGY1 - IM Progress Note Patient seen and examined at bedside. No acute events overnight. Patient reports improvement in her fever, with no change in her pain. Also complaining in soreness in both legs after the ultrasound yesterday, and a mild headache. She denies any chest pain, shortness of breath, abdominal pain, nausea, vomiting , dysuria, hematuria. Last BM yesterday during the day, has not had diarrhea since. Patient did not have PICC placed yesterday, eventually had peripheral line placed in the evening, and finally received the fluid bolus that was ordered. Objective - Vital Signs/Intake and Output Vital Signs (last 24 hours): Temp Pulse Resp BP Pulse Ox 99.3 F 100 H 20 136/60 99 04/12/17 05:42 04/12/17 10:10 04/12/17 05:42 04/12/17 10:10 04/12/17 05:42 Intake and Output: 04/12/17 04/12/17 06:59 18:59 Intake Total 2220 Balance 2220 - Medications Medications: Current Medications Acetaminophen (Tylenol 325mg Tab) 650 mg PO ONCE PRN PRN Reason: Fever >100.4 F Aspirin (Ecotrin) 81 mg PO DAILY [facility] Last Admin: 04/12/17 10:08 Dose: 81 mg Cyanocobalamin (Vitamin B12 1000 Mcg Tab) 500 mcg PO DAILY [facility] Last Admin: 04/12/17 10:09 Dose: 500 mcg Ferrous Sulfate (Feosol) 324 mg PO TID [facility] Last Admin: 04/12/17 10:12 Dose: 324 mg Linezolid (Zyvox 600mg/300ml D5w) 600 mg in 300 mls @ 200 mls/hr IVPB Q12 [facility] PRN Reason: Protocol Stop: 04/20/17 10:42 Last Admin: 04/11/17 15:30 Dose: Not Given Meropenem 500 mg/ Sodium (Chloride) 100 mls @ 100 mls/hr IVPB Q12H [facility] Last Admin: 04/11/17 22:59 Dose: 100 mls/hr Sodium Chloride (Sodium Chloride 0.9%) 1,000 mls @ 100 mls/hr IV .Q10H [facility] Insulin Human Regular (Humulin R Low) 0 units SC ACHS [facility] PRN Reason: Protocol Last Admin: 04/12/17 08:26 Dose: Not Given Megestrol Acetate (Megace) 40 mg PO DAILY [facility] Last Admin: 04/11/17 09:29 Dose: 40 mg Metoprolol Succinate (Toprol Xl) 25 mg PO DAILY [facility] Last Admin: 04/12/17 10:10 Dose: 25 mg Multivitamins (Thera Tab) 1 tab PO DAILY [facility] Last Admin: 04/12/17 09:51 Dose: 1 tab Mupirocin (Bactroban Ointment) 0 gm TOP BID [facility] Last Admin: 04/12/17 10:11 Dose: 1 unit Ondansetron HCl (Zofran Inj) 4 mg IVP Q4H PRN PRN Reason: Nausea/Vomiting Pantoprazole Sodium (Protonix Ec Tab) 40 mg PO DAILY [facility] Last Admin: 04/12/17 10:08 Dose: 40 mg Sodium Bicarbonate (Sodium Bicarbonate Tab) 1,300 mg PO QID [facility] Last Admin: 04/12/17 10:08 Dose: 1,300 mg Sodium Bicarbonate (Sodium Bicarbonate 8.4% (50 Meq) Syringe) 50 meq IVP Q4 [facility] Stop: 04/12/17 16:01 Vitamin B Complex/Vit C/Folic Acid (Nephro-Jenny) 1 tab PO 0800 [facility] Last Admin: 04/12/17 09:00 Dose: 1 tab - Labs Labs: 04/12/17 06:30 04/12/17 06:30 PT 14.7 SECONDS (9.4-12.5) H 04/10/17 16:05 INR 1.28 (0.93-1.08) H 04/10/17 16:05 APTT 33.0 Seconds (25.1-36.5) 04/10/17 16:05 - Constitutional Appears: Non-toxic, No Acute Distress, Chronically Ill - Head Exam Head Exam: ATRAUMATIC, NORMOCEPHALIC - Eye Exam Eye Exam: EOMI, Normal appearance, PERRL - ENT Exam ENT Exam: Mucous Membranes Dry - Neck Exam Neck Exam: Normal Inspection Additional comments: Neck veins flat - Respiratory Exam Respiratory Exam: Clear to Ausculation Bilateral, NORMAL BREATHING PATTERN - Cardiovascular Exam Cardiovascular Exam: Tachycardia, REGULAR RHYTHM, +S1, +S2 - GI/Abdominal Exam GI & Abdominal Exam: Soft, Tenderness (Mild, RUQ, on deep palpation; Negative farley's), Normal Bowel Sounds. absent: Organomegaly - Extremities Exam Extremities Exam: absent: Calf Tenderness, Pedal Edema Additional comments: Right foot with dressing in place; distal pulses nonpalpable Left foot with superficial ulceration on lateral malleolus; distal pulses nonpalpable - Neurological Exam Neurological Exam: Alert, Awake, Oriented x3 - Psychiatric Exam Psychiatric exam: Normal Affect, Normal Mood - Skin Skin Exam: Dry, Intact, Normal Color Assessment and Plan - Assessment and Plan (Free Text) Assessment: 61F with PMH of Diabetes mellitus type 2, anemia, peripheral arterial disease, GERD, osteomyelitis, esophageal stenosis, hypertension, chronic kidney disease, CAD, and arthritis who presents to the ED from the wound care clinic with Dr. Raymond for possible wound infection vs osteomyelitis of the right foot Plan: Sepsis 2/2 RLE cellulitis vs osteomyelitis -Fevers improved, though patient remains on cooling blanket; with persistent tachycardia -FREDY and transaminemia improving; limited administration of NSAIDs and Acetaminophen, prefer use of cooling blanket -Repeat lactate yesterday showed improvement in lactate; repeat ABG this AM shows resolution of lactic acidosis; still with persistent mixed acid-base disorder; likely metabolic acidosis with compensatory alkalosis -PICC line ordered; has not been placed yet; patient has 24 gauge peripheral IV line -Patient received 1L NS bolus yesterday; remains tachycardic; repeat 1L bolus today -MRI of both feet, without contrast ordered, pending; per podiatry -Continue Zyvox and Merrem per ID -Viral Hepatitis panel negative -Blood culture shows no growth after 24 hours -Wound culture shows gram positive Cocci -Urine culture negative -Per podiatry, patient will require amputation, in addition to IV antibiotics, after medical stabilization; patient will require revascularization prior to amputation -ID consulted - Dr. Nair -Podiatry consulted - Dr. Mattson Anemia -Hgb dropped overnight to 7.2 this AM; likely 2/2 dilution; no signs of active bleeding -Type and screen done -Repeat H&H at 1200; will transfuse if Hgb <7.0, target Hgb >8.0 -Patient continues to have slightly elevated temperatures, which may confound monitoring during transfusion; preferably wait until temperature returns to normal FREDY -Likely prerenal, considering septic state; improving -Urine studies pending -Continue IVF hydration and PO hydration -Nephrology consulted (Dr. Reyes), recs appreciated Hypernatremia -Resolved -Switch IVF to NS for better volume resuscitation Elevated LFTs -Trending down; likely secondary to ischemia in shock state -Viral hepatitis panel negative -Abd US and CT A/P show echogenic liver, likely fatty infiltration Diabetes mellitus type 2 -low dose sliding scale -Consistent carb diet -Fingersticks ACHS CAD -Continue ASA 81mg po daily GI/DVT prophylaxis -Protonix -Heparin Patient seen, discussed, and reviewed with attending Dr. Grover <Idalia Grover B - Last Filed: 04/13/17 17:10> Objective - Vital Signs/Intake and Output Vital Signs (last 24 hours): Temp Pulse Resp BP Pulse Ox 98 F 91 H 20 157/68 H 99 04/13/17 12:00 04/13/17 12:00 04/13/17 12:00 04/13/17 12:00 04/13/17 06:00 Intake and Output: 04/13/17 04/13/17 06:59 18:59 Intake Total 2720 Balance 2720 - Medications Medications: Current Medications Aspirin (Ecotrin) 81 mg PO DAILY [facility] Last Admin: 04/13/17 09:36 Dose: 81 mg Cyanocobalamin (Vitamin B12 1000 Mcg Tab) 500 mcg PO DAILY [facility] Last Admin: 04/13/17 09:36 Dose: 500 mcg Ferrous Sulfate (Feosol) 324 mg PO TID [facility] Last Admin: 04/13/17 09:36 Dose: 324 mg Heparin Sodium (Porcine) (Heparin) 5,000 units SC Q8 [facility] PRN Reason: Protocol Last Admin: 04/13/17 05:44 Dose: 5,000 units Home Med (Home Med) 1 unit PO DAILY@1200 [facility] Linezolid (Zyvox 600mg/300ml D5w) 600 mg in 300 mls @ 200 mls/hr IVPB Q12 [facility] PRN Reason: Protocol Stop: 04/20/17 10:42 Last Admin: 04/13/17 09:38 Dose: 200 mls/hr Sodium Chloride (Sodium Chloride 0.45%) 1,000 mls @ 100 mls/hr IV .Q10H [facility] Insulin Human Regular (Humulin R Low) 0 units SC ACHS [facility] PRN Reason: Protocol Last Admin: 04/13/17 13:11 Dose: 2 units Megestrol Acetate (Megace) 40 mg PO DAILY [facility] Last Admin: 04/13/17 09:36 Dose: 40 mg Metoprolol Succinate (Toprol Xl) 25 mg PO DAILY [facility] Last Admin: 04/13/17 09:37 Dose: 25 mg Multivitamins (Thera Tab) 1 tab PO DAILY [facility] Last Admin: 04/13/17 09:37 Dose: 1 tab Mupirocin (Bactroban Ointment) 0 gm TOP BID [facility] Last Admin: 04/12/17 17:39 Dose: 1 unit Ondansetron HCl (Zofran Inj) 4 mg IVP Q4H PRN PRN Reason: Nausea/Vomiting Pantoprazole Sodium (Protonix Ec Tab) 40 mg PO DAILY [facility] Last Admin: 04/13/17 09:36 Dose: 40 mg Sodium Bicarbonate (Sodium Bicarbonate Tab) 1,300 mg PO QID [facility] Last Admin: 04/13/17 09:40 Dose: 1,300 mg - Labs Labs: 04/13/17 06:45 04/13/17 06:45 PT 14.7 SECONDS (9.4-12.5) H 04/10/17 16:05 INR 1.28 (0.93-1.08) H 04/10/17 16:05 APTT 33.0 Seconds (25.1-36.5) 04/10/17 16:05 Attending/Attestation - Attestation I have personally seen and examined this patient.: Yes I have fully participated in the care of the patient.: Yes I have reviewed all pertinent clinical information, including history, physical exam and plan: Yes Notes (Text): I have seen and examined the patient at bedside. Agree with the above note with the following additions/ exceptions: Briefly this is 61 year old female with history of DM-2, chronic anemia, chronic diarrhea, PAD, GERD, esophageal stenosis, HTN, CKD, CAD and RA who was sent by tray drier for evaluation of osteomyelitis of right foot. She has sepsis secondary to acute osteomyelitis of right foot. She is afebrile now however she remains tachycardic. Will continue IV antibiotics empirically. Cultures are pending. Will consult ID. She had hypernatremia which has improved. Continue IVF as per nephro. She has transamitis. Hep panel is negative. CT scan revealed fatty infiltration. Urine lytes pending. Hyperkalemia resolved. She continue to have diarrhea which is chronic. Cdiff is negative. Upon discharge patient will follow up with Dr Chavez. Dr Idalia Grover
[2017-04-12 14:23] LABS: MEAN CELL VOLUME 92.4 fl (80.0-105.0); MEAN CORPUSCULAR HEMOGLOBIN 29.9 pg (25.0-35.0); MEAN CORPUSCULAR HGB CONC 32.4 g/dl (31.0-37.0); MEAN PLATELET VOLUME 9.4 fl (7.0-11.0); RBC 2.24 10^6/uL (3.5-6.1); RED CELL DISTRIBUTION WIDTH 15.2 % (11.5-14.5); WHITE BLOOD COUNT 3.9 10^3/ul (4.5-11.0)
[2017-04-12 14:31] LABS: HEMOGLOBIN 6.7 g/dL (12.0-16.0)
[2017-04-12 14:33] LABS: CALCIUM 9.2 mg/dL (8.4-10.5)
--- NOTE | 2017-04-12 14:37 | CP.PCM.PN ---
Subjective - Date & Time of Evaluation Date of Evaluation: 04/12/17 Time of Evaluation: 14:34 - Subjective Subjective: Follow up Nephrology Consultation: Assessment: critical Acute Kidney Injury (N17.9) likely due to pre-renal state, decreased oral intake , dehydration, sepsis: improved Hypernatremia, hyperkalemia, acidosis Diabetic chronic Kidney Disease (E11.22) Hypertensive Chronic Kidney Disease (I12.9) Chronic Kidney Disease (N18.3) Stage 3 Anemia (D64.9), Secondary Hyperparathyroidism (E21.1), Vit D def, HTN (I12.9) hearing loss, esophageal stenosis, basal cell CA on nasal skin s/p removal Plan No acute need for renal replacement therapy at this time. Hypertension control with meds as ordered. Patient not on ACEI/ARB due to FREDY and hyperkalemia. continue with beta-lisandro as also has tachycardia Monitor Input/Output, daily weights and renal function with basic metabolic panel resume Sodium bicarb 1300 mg qid, iron and MVI. ordered IV sodium bicarb dose of ananesp 04/11/17. consider PRBC transfusion also on vit D monthly choice of IVF as 0.45% saline. can give NS bolus if needed for sepsis avoid kayexylate due to diarrhoea. pt takes veltassa at home. has brought from home and can give if needed. medication (1 box of 4 packet) given to RN for storage. since latest K 3.7 will defer the use for now Check urine analysis, spot protein/creatinine urine Na/K/Chloride check serum protein electrophoresis with immunofixation, serum FLC assay Dose meds/antibiotics for reduced GFR. Avoid fleets enema/magnesium based laxatives. Avoid nephrotoxins/NSAIDs/ iodinated contrast (unless needed emergently) Glycemic control Further work up/management as per primary team Thanks for allowing me to participate in care of your patient. Will follow patient with you. Please call if any Qs. d/w team Dr Javier Reyes Office: [phone] CC: foot infection reason for consult; FREDY HPI: Pt is a 61 y/o F with hx of diabetes Mellitus ( x 8-9 years) with retinopathy, hypertension, hearing loss, esophageal stenosis, chronic anemia, basal cell CA on nasal skin s/p removal admitted to [facility] 09/07/16-09/13 with left foot worsening wound infection, sepsis and osteomyelitis was seen for FREDY which improved with IVF. Her GN work up was negative. now has CKD stage 3. recently seen in office. now readmitted for Sepsis with osteomyelitis renal consult for FREDY management Denies chest pain, palpitation, shortness of breath, leg swelling Drinks gatrorade, also drinking more water. Has chronic loose stool many times 2 -3 times/day. no recent contrast exposure. BP not low ROS: Cardiovascular: No chest pain. Pulmonary: No shortness of breath Gastrointestinal: denies abdominal pain No nausea. No vomiting. Genitourinary: No pain while urinating. Denies blood in urine. Rest all other negative General Appearance: Comfortable, in no acute respiratory distress, co-operative . thin built. ill appearing Vitals reviewed and noted Head; Atraumatic, normocephalic ENT: no ulcers no thrush. Tongue is midline. Oropharynx: no rash or ulcers. Hard of hearing. Uses hearing aid. EYES: Pupils are equal, round and reactive to light accommodation. Eye muscles and extraocular movement intact. Sclera is anicteric. Neck; supple no lymphadenopathy, no thyromegaly or bruit Lungs: Normal respiratory rate/effort. Breath sounds bilateral equal and clear Heart: Increased rate. s1s2 normal. No rub or gallop. Extremities: no edema with wound dressed at food. No varicose veins. Hand osteoarthritic deformities +. Neurological: Patient is alert, awake and oriented to person, place and time. No focal deficit. Strength bilateral appropriate and equal Skin: Warm and dry. Normal turgor. No rash. Palpitation: Normal elasticity for age Abdomen: Abdomen is soft. Bowel sounds +. There is no abdominal tenderness, no guarding/rigidity or organomegaly Psych: normal insight and normal affect/mood MSK: no joint tenderness or swelling. : kidney or bladder not palpable Labs/imaging reviewed. Past medical history, past surgical history, family history, social history, allergy reviewed and noted as below Family hx: no hx of CKD. Rest non-contributory Work up: 09/13/2016: GN serologies all negative, scleroderma work up neg, SPEP/LUDY neg Renal sono: b/l cortical atrophy. Small 1 cm Rt kidney simple cyst. Objective - Vital Signs/Intake and Output Vital Signs (last 24 hours): Temp Pulse Resp BP Pulse Ox 99.3 F 100 H 20 136/60 99 04/12/17 05:42 04/12/17 10:10 04/12/17 05:42 04/12/17 10:10 04/12/17 05:42 Intake and Output: 04/12/17 04/12/17 06:59 18:59 Intake Total 2220 Balance 2220 - Medications Medications: Current Medications Acetaminophen (Tylenol 325mg Tab) 650 mg PO ONCE PRN PRN Reason: Fever >100.4 F Aspirin (Ecotrin) 81 mg PO DAILY [facility] Last Admin: 04/12/17 10:08 Dose: 81 mg Cyanocobalamin (Vitamin B12 1000 Mcg Tab) 500 mcg PO DAILY [facility] Last Admin: 04/12/17 10:09 Dose: 500 mcg Ferrous Sulfate (Feosol) 324 mg PO TID [facility] Last Admin: 04/12/17 10:12 Dose: 324 mg Heparin Sodium (Porcine) (Heparin) 5,000 units SC Q8 [facility] PRN Reason: Protocol Linezolid (Zyvox 600mg/300ml D5w) 600 mg in 300 mls @ 200 mls/hr IVPB Q12 [facility] PRN Reason: Protocol Stop: 04/20/17 10:42 Last Admin: 04/11/17 15:30 Dose: Not Given Meropenem 500 mg/ Sodium (Chloride) 100 mls @ 100 mls/hr IVPB Q12H [facility] Last Admin: 04/11/17 22:59 Dose: 100 mls/hr Sodium Chloride (Sodium Chloride 0.9%) 1,000 mls @ 100 mls/hr IV .Q10H [facility] Insulin Human Regular (Humulin R Low) 0 units SC ACHS [facility] PRN Reason: Protocol Last Admin: 04/12/17 08:26 Dose: Not Given Megestrol Acetate (Megace) 40 mg PO DAILY [facility] Last Admin: 04/11/17 09:29 Dose: 40 mg Metoprolol Succinate (Toprol Xl) 25 mg PO DAILY [facility] Last Admin: 04/12/17 10:10 Dose: 25 mg Multivitamins (Thera Tab) 1 tab PO DAILY [facility] Last Admin: 04/12/17 09:51 Dose: 1 tab Mupirocin (Bactroban Ointment) 0 gm TOP BID [facility] Last Admin: 04/12/17 10:11 Dose: 1 unit Ondansetron HCl (Zofran Inj) 4 mg IVP Q4H PRN PRN Reason: Nausea/Vomiting Pantoprazole Sodium (Protonix Ec Tab) 40 mg PO DAILY [facility] Last Admin: 04/12/17 10:08 Dose: 40 mg Sodium Bicarbonate (Sodium Bicarbonate Tab) 1,300 mg PO QID [facility] Last Admin: 04/12/17 10:08 Dose: 1,300 mg Sodium Bicarbonate (Sodium Bicarbonate 8.4% (50 Meq) Syringe) 50 meq IVP Q4 [facility] Stop: 04/12/17 16:01 Vitamin B Complex/Vit C/Folic Acid (Nephro-Jenny) 1 tab PO 0800 [facility] Last Admin: 04/12/17 09:00 Dose: 1 tab - Labs Labs: 04/12/17 14:10 04/12/17 14:10 PT 14.7 SECONDS (9.4-12.5) H 04/10/17 16:05 INR 1.28 (0.93-1.08) H 04/10/17 16:05 APTT 33.0 Seconds (25.1-36.5) 04/10/17 16:05
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
[2017-04-12] MEDS: Sodium Bicarbonate (8.4%) 50 Meq Syringe IVP SCH ×2 (14:44→18:30)
[2017-04-12] MEDS: Linezolid 600 mg in D5W 300 ml 600 MG/300 ML BAG IVPB SCH ×2 (14:47→22:12)
[2017-04-12] MEDS: Sodium Chloride 0.9% 1,000 ML IV SCH (14:47)
--- NOTE | 2017-04-12 14:50 | MRI ---
PROCEDURE: MRI bilateral feet. Right foot reported 1st HISTORY: osteomylitis COMPARISON: Plain films 04/10/2017 TECHNIQUE: MRI of the right foot was performed in multiple planes using multiple pulse sequences. FINDINGS: There has been amputation of the 2nd toe. There is bony erosion of the head of the metatarsals 2 through 5 with dislocation of the remaining toes. This is better appreciated on plain films. There is a transverse metallic screw and wires in the 1st metatarsal. This produces some metallic artifact. There is a moderate amount of marrow edema in the 2nd metatarsal. There is adjacent soft tissue swelling on the plantar aspect of the foot. Findings are suspicious for osteomyelitis. The findings are best visualized on image 13 series 7. IMPRESSION: Right foot. There is a moderate amount of marrow edema in the 2nd metatarsal. There is adjacent soft tissue swelling on the plantar aspect of the foot. Findings are suspicious for osteomyelitis. PROCEDURE: MRI of the left foot HISTORY: osteomylitis COMPARISON: Plain films 09/07/2016 TECHNIQUE: MRI of the left foot was performed in multiple planes using multiple pulse sequences. FINDINGS: There has been amputation of the big toe. There is bony erosion of the head of the metatarsals of the 2nd through 5th digits with fusion of the adjacent phalanges. There is no marrow edema to suggest acute osteomyelitis IMPRESSION: Left foot. No evidence of osteomyelitis
--- NOTE | 2017-04-12 17:03 | CP.PCM.PN ---
Subjective - Date & Time of Evaluation Date of Evaluation: 04/12/17 Time of Evaluation: 11:45 - Subjective Subjective: Comfortable, no fevers. Objective - Vital Signs/Intake and Output Vital Signs (last 24 hours): Temp Pulse Resp BP Pulse Ox 99.3 F 100 H 20 136/60 99 04/12/17 05:42 04/12/17 10:10 04/12/17 05:42 04/12/17 10:10 04/12/17 05:42 Intake and Output: 04/12/17 04/12/17 06:59 18:59 Intake Total 2220 Balance 2220 - Medications Medications: Current Medications Aspirin (Ecotrin) 81 mg PO DAILY [facility] Last Admin: 04/12/17 10:08 Dose: 81 mg Cyanocobalamin (Vitamin B12 1000 Mcg Tab) 500 mcg PO DAILY [facility] Last Admin: 04/12/17 10:09 Dose: 500 mcg Ferrous Sulfate (Feosol) 324 mg PO TID [facility] Last Admin: 04/12/17 10:12 Dose: 324 mg Home Med (Home Med) 1 unit PO TTS [facility] Sodium Chloride (Sodium Chloride 0.45%) 1,000 mls @ 125 mls/hr IV .Q8H [facility] Last Admin: 04/12/17 10:02 Dose: 125 mls/hr Linezolid (Zyvox 600mg/300ml D5w) 600 mg in 300 mls @ 200 mls/hr IVPB Q12 [facility] PRN Reason: Protocol Stop: 04/20/17 10:42 Last Admin: 04/11/17 15:30 Dose: Not Given Meropenem 500 mg/ Sodium (Chloride) 100 mls @ 100 mls/hr IVPB Q12H [facility] Last Admin: 04/11/17 22:59 Dose: 100 mls/hr Insulin Human Regular (Humulin R Low) 0 units SC ACHS [facility] PRN Reason: Protocol Last Admin: 04/12/17 08:26 Dose: Not Given Megestrol Acetate (Megace) 40 mg PO DAILY [facility] Last Admin: 04/11/17 09:29 Dose: 40 mg Metoprolol Succinate (Toprol Xl) 25 mg PO DAILY [facility] Last Admin: 04/12/17 10:10 Dose: 25 mg Multivitamins (Thera Tab) 1 tab PO DAILY [facility] Last Admin: 04/12/17 09:51 Dose: 1 tab Mupirocin (Bactroban Ointment) 0 gm TOP BID [facility] Last Admin: 04/12/17 10:11 Dose: 1 unit Ondansetron HCl (Zofran Inj) 4 mg IVP Q4H PRN PRN Reason: Nausea/Vomiting Pantoprazole Sodium (Protonix Ec Tab) 40 mg PO DAILY [facility] Last Admin: 04/12/17 10:08 Dose: 40 mg Sodium Bicarbonate (Sodium Bicarbonate Tab) 1,300 mg PO QID [facility] Last Admin: 04/12/17 10:08 Dose: 1,300 mg Vitamin B Complex/Vit C/Folic Acid (Nephro-Jenny) 1 tab PO 0800 [facility] Last Admin: 04/12/17 09:00 Dose: 1 tab - Labs Labs: 04/12/17 06:30 04/12/17 06:30 PT 14.7 SECONDS (9.4-12.5) H 04/10/17 16:05 INR 1.28 (0.93-1.08) H 04/10/17 16:05 APTT 33.0 Seconds (25.1-36.5) 04/10/17 16:05 - Constitutional Appears: Chronically Ill - Head Exam Head Exam: NORMAL INSPECTION - Respiratory Exam Respiratory Exam: Decreased Breath Sounds - Cardiovascular Exam Cardiovascular Exam: +S1, +S2 - GI/Abdominal Exam GI & Abdominal Exam: Soft. absent: Tenderness - Extremities Exam Additional comments: right foot with dressings in place Assessment and Plan - Assessment and Plan (Free Text) Plan: Assessment severe sepsis due to right foot cellulitis with chronic osteomyelitis S/P debridement POD #1 history of Acute osteomyelitis of the left foot; growing beta hemolytic strep DM Plan Continue Zyvox and Merrem and follow up OR cultures and pathology
[2017-04-12] MEDS ORDERED: Potassium Chloride 20 mEq/15 ml LIQ UD PO ONE (18:59)
[2017-04-13 07:18] LABS: BASO # 0.01 K/mm3 (0.0-2.0); BASO % 0.3 % (0.0-3.0); EOS # 0.4 (0.0-0.7); EOS % 10.3 % (1.5-5.0); GRAN # 1.98 (1.4-6.5); GRAN % 53.6 % (50.0-68.0); HEMOGLOBIN 11.3 g/dL (12.0-16.0); LYMPH # 0.9 (1.2-3.4); LYMPH % 24.4 % (22.0-35.0); MEAN CELL VOLUME 89.1 fl (80.0-105.0); MEAN CORPUSCULAR HEMOGLOBIN 29.2 pg (25.0-35.0); MEAN CORPUSCULAR HGB CONC 32.8 g/dl (31.0-37.0); MEAN PLATELET VOLUME 9.8 fl (7.0-11.0); MONO # 0.4 (0.1-0.6); MONO % 11.4 % (1.0-6.0); RBC 3.87 10^6/uL (3.5-6.1); RED CELL DISTRIBUTION WIDTH 15.1 % (11.5-14.5); WHITE BLOOD COUNT 3.7 10^3/ul (4.5-11.0)
[2017-04-13 07:45] LABS: ALBUMIN 3.5 g/dL (3.0-4.8); CALCIUM 9.3 mg/dL (8.4-10.5); MAGNESIUM 1.5 mg/dL (1.7-2.2)
--- NOTE | 2017-04-13 08:24 | PN ---
DATE: 04/12/2017 HISTORY OF PRESENT ILLNESS: This is a 61-year-old female seen for ulceration to bilateral feet. The patient had her arterial Dopplers done and unfortunately she has bilateral lower extremity occlusions. The patient is seen at bedside, resting comfortably. Her vital signs show a temperature of 99.3, the pulse is 141, blood pressure is 136/62. MEDICATIONS: Are noted on the MAY. She is presently on meropenem as per Infectious Disease. LABORATORY DATA: The patient's labs showed white blood cell count today of 4.2. The H and H is 7.2/23.7 and the platelets are 251. Her ESR is high at 150. Chemistry shows a BUN and creatinine of 27 and 1.7 and the glucose is 111. The patient's liver enzymes are also elevated with AST at 45, ALT is 87 and the alkaline phosphatase is 155. Microbiology, you have to look on the old visits. Dr. Raymond took a culture on 04/10/2017 at the wound care center and that showed beta-hemolytic strep group B. The patient's foot was inspected today. She has an ulceration at the dorsal aspect where the second toe had previously been amputated. There is bone remnant of the second metatarsal in this wound. There is still a little moderate drainage coming from the wounds. The cellulitis is improved and is local around the second MPJ area. The ankle wound on the lateral left ankle from a shoe is improving. This wound is granular, it has no signs of infection at this time. The patient was scheduled for an MRI on Sunday and for completeness sake, we did order bilateral MRIs. The MRI on the left is going to help in surgical planning and the MRI on the left would rule out any bony abnormalities since the patient is so small and frail on the left side. The patient's wounds were both cleansed and dressed and we used Bactroban and dry sterile dressing on the right and Bactroban with foam on the left. MRI at this time is pending. Consult has been placed in the chart with Dr. Najera. I did speak with Dr. Grover, the PMD, regarding the case and the patient will need resection of the second metatarsal bone after revascularization. This patient is not a candidate for home IV antibiotics because of the renal complications. The patient will be seen and followed. Leatha Mattson DPM [facility] # [id number]
[2017-04-13] MEDS ORDERED: Magnesium Sulfate 2 GM in Sodium Chloride 0.9% 100 ML IVPB ONE (08:39)
[2017-04-13] MEDS ORDERED: Potassium Chloride 40 mEq/30 ml LIQ UD PO ONE (08:39)
--- NOTE | 2017-04-13 08:51 | CP.PCM.PN ---
Subjective - Date & Time of Evaluation Date of Evaluation: 04/13/17 Time of Evaluation: 07:30 - Subjective Subjective: Vascular surgery Progress Note for Dr. Najera Patient seen and examined at bedside. Patient denies any worsening pain or paresthesias affecting the lower extremities. Chart review reveals patient has been afebrile overnight. Nurser reports no events overnight. Objective - Vital Signs/Intake and Output Vital Signs (last 24 hours): Temp Pulse Resp BP Pulse Ox 98 F 88 16 137/95 H 99 04/13/17 06:00 04/13/17 06:00 04/13/17 06:00 04/13/17 06:00 04/13/17 06:00 Intake and Output: 04/13/17 04/13/17 06:59 18:59 Intake Total 2720 Balance 2720 - Medications Medications: Current Medications Aspirin (Ecotrin) 81 mg PO DAILY [facility] Last Admin: 04/12/17 10:08 Dose: 81 mg Cyanocobalamin (Vitamin B12 1000 Mcg Tab) 500 mcg PO DAILY [facility] Last Admin: 04/12/17 10:09 Dose: 500 mcg Ferrous Sulfate (Feosol) 324 mg PO TID [facility] Last Admin: 04/12/17 17:40 Dose: 324 mg Heparin Sodium (Porcine) (Heparin) 5,000 units SC Q8 [facility] PRN Reason: Protocol Last Admin: 04/13/17 05:44 Dose: 5,000 units Home Med (Home Med) 1 unit PO DAILY@1200 [facility] Linezolid (Zyvox 600mg/300ml D5w) 600 mg in 300 mls @ 200 mls/hr IVPB Q12 [facility] PRN Reason: Protocol Stop: 04/20/17 10:42 Last Admin: 04/12/17 22:12 Dose: 200 mls/hr Meropenem 500 mg/ Sodium (Chloride) 100 mls @ 100 mls/hr IVPB Q12H [facility] Last Admin: 04/12/17 23:48 Dose: 100 mls/hr Sodium Chloride (Sodium Chloride 0.9%) 1,000 mls @ 100 mls/hr IV .Q10H [facility] Last Admin: 04/12/17 14:47 Dose: 100 mls/hr Magnesium Sulfate 2 gm/ Sodium (Chloride) 104 mls @ 102 mls/hr IVPB ONCE ONE Stop: 04/13/17 09:40 Insulin Human Regular (Humulin R Low) 0 units SC ACHS [facility] PRN Reason: Protocol Last Admin: 04/12/17 23:33 Dose: Not Given Megestrol Acetate (Megace) 40 mg PO DAILY [facility] Last Admin: 04/12/17 11:00 Dose: 40 mg Metoprolol Succinate (Toprol Xl) 25 mg PO DAILY [facility] Last Admin: 04/12/17 10:10 Dose: 25 mg Multivitamins (Thera Tab) 1 tab PO DAILY [facility] Last Admin: 04/12/17 09:51 Dose: 1 tab Mupirocin (Bactroban Ointment) 0 gm TOP BID [facility] Last Admin: 04/12/17 17:39 Dose: 1 unit Ondansetron HCl (Zofran Inj) 4 mg IVP Q4H PRN PRN Reason: Nausea/Vomiting Pantoprazole Sodium (Protonix Ec Tab) 40 mg PO DAILY [facility] Last Admin: 04/12/17 10:08 Dose: 40 mg Sodium Bicarbonate (Sodium Bicarbonate Tab) 1,300 mg PO QID [facility] Last Admin: 04/12/17 21:28 Dose: 1,300 mg - Labs Labs: 04/13/17 06:45 04/13/17 06:45 PT 14.7 SECONDS (9.4-12.5) H 04/10/17 16:05 INR 1.28 (0.93-1.08) H 04/10/17 16:05 APTT 33.0 Seconds (25.1-36.5) 04/10/17 16:05 - Constitutional Appears: Well, Non-toxic - Head Exam Head Exam: ATRAUMATIC, NORMOCEPHALIC - Eye Exam Eye Exam: EOMI, Normal appearance - ENT Exam ENT Exam: Mucous Membranes Moist, Normal Oropharynx - Respiratory Exam Respiratory Exam: NORMAL BREATHING PATTERN. absent: Accessory Muscle Use - Cardiovascular Exam Cardiovascular Exam: RRR, +S1, +S2 - GI/Abdominal Exam GI & Abdominal Exam: Soft. absent: Tenderness, Rebound - Extremities Exam Additional comments: dorsalis pedis and posterior tibial pulses graded 3/4 bilaterally; popliteal, femoral, and radial pulses graded 2/4 bilaterally - Neurological Exam Neurological Exam: Alert, Awake, Oriented x3 Additional comments: hard of hearing - Psychiatric Exam Psychiatric exam: Normal Affect, Normal Mood - Skin Skin Exam: Dry, Intact, Normal Color, Warm Additional comments: right foot ulcer is not bleeding, and without erythema Assessment and Plan - Assessment and Plan (Free Text) Assessment: 61 year old female with chronic, non-healing right foot ulcer and osteomyelitis. Plan: Wound care per podiatry. Patient has palpable pulses. No emergent vascular surgery needed at this time. Continue antibiotics per ID. Case discussed with Dr. Najera. Please reconsult as needed As always, thank you for allowing to participate in the care of this patient.
[2017-04-13] MEDS: Insulin Reg-LOW-Coverage SC SCH ×4 (09:33→21:33)
[2017-04-13] MEDS: Pantoprazole 40 mg EC Tab PO SCH (09:36)
[2017-04-13] MEDS: Metoprolol Succinate 25 mg XL Tab PO SCH (09:37)
[2017-04-13] MEDS: Multivitamin Therapeutic Tab PO SCH (09:37)
[2017-04-13] MEDS: Linezolid 600 mg in D5W 300 ml 600 MG/300 ML BAG IVPB SCH ×2 (09:38→21:37)
[2017-04-13] MEDS: Sodium Chloride 0.9% 1,000 ML IV SCH (09:39)
--- NOTE | 2017-04-13 10:13 | CP.PCM.PN ---
Subjective - Date & Time of Evaluation Date of Evaluation: 04/13/17 Time of Evaluation: 10:10 - Subjective Subjective: Follow up Nephrology Consultation: Assessment: critical Acute Kidney Injury (N17.9) likely due to pre-renal state, decreased oral intake , dehydration, sepsis: improved Hypernatremia, acidosis Diabetic chronic Kidney Disease (E11.22) Hypertensive Chronic Kidney Disease (I12.9) Chronic Kidney Disease (N18.3) Stage 3 Anemia (D64.9), Secondary Hyperparathyroidism (E21.1), Vit D def, HTN (I12.9) hearing loss, esophageal stenosis, basal cell CA on nasal skin s/p removal hypokalemia hypomagnesemia Plan No acute need for renal replacement therapy at this time. Renal function stable continue oral bicarbonate dose of ananesp 04/11/17. consider PRBC transfusion also on vit D monthly encourage oral fluid intake for hypernatremia potassium and magnesium given today S: pt seen and examined, she feels ok no n/v General Appearance: Comfortable, in no acute respiratory distress, co-operative . thin built. ill appearing Vitals reviewed and noted Head; Atraumatic, normocephalic ENT: no ulcers no thrush. Tongue is midline. Oropharynx: no rash or ulcers. Hard of hearing. Uses hearing aid. EYES: Pupils are equal, round and reactive to light accommodation. Eye muscles and extraocular movement intact. Sclera is anicteric. Neck; supple no lymphadenopathy, no thyromegaly or bruit Lungs: Normal respiratory rate/effort. Breath sounds bilateral equal and clear Heart: Increased rate. s1s2 normal. No rub or gallop. Extremities: no edema with wound dressed at food. No varicose veins. Hand osteoarthritic deformities +. Neurological: Patient is alert, awake and oriented to person, place and time. No focal deficit. Strength bilateral appropriate and equal Skin: Warm and dry. Normal turgor. No rash. Palpitation: Normal elasticity for age Abdomen: Abdomen is soft. Bowel sounds +. There is no abdominal tenderness, no guarding/rigidity or organomegaly Psych: normal insight and normal affect/mood MSK: no joint tenderness or swelling. : kidney or bladder not palpable Labs/imaging reviewed. Past medical history, past surgical history, family history, social history, allergy reviewed and noted as below Family hx: no hx of CKD. Rest non-contributory Objective - Vital Signs/Intake and Output Vital Signs (last 24 hours): Temp Pulse Resp BP Pulse Ox 98 F 90 16 135/43 L 99 04/13/17 06:00 04/13/17 09:37 04/13/17 06:00 04/13/17 09:37 04/13/17 06:00 Intake and Output: 04/13/17 04/13/17 06:59 18:59 Intake Total 2720 Balance 2720 - Medications Medications: Current Medications Aspirin (Ecotrin) 81 mg PO DAILY [facility] Last Admin: 04/13/17 09:36 Dose: 81 mg Cyanocobalamin (Vitamin B12 1000 Mcg Tab) 500 mcg PO DAILY [facility] Last Admin: 04/13/17 09:36 Dose: 500 mcg Ferrous Sulfate (Feosol) 324 mg PO TID [facility] Last Admin: 04/13/17 09:36 Dose: 324 mg Heparin Sodium (Porcine) (Heparin) 5,000 units SC Q8 [facility] PRN Reason: Protocol Last Admin: 04/13/17 05:44 Dose: 5,000 units Home Med (Home Med) 1 unit PO DAILY@1200 [facility] Linezolid (Zyvox 600mg/300ml D5w) 600 mg in 300 mls @ 200 mls/hr IVPB Q12 [facility] PRN Reason: Protocol Stop: 04/20/17 10:42 Last Admin: 04/13/17 09:38 Dose: 200 mls/hr Meropenem 500 mg/ Sodium (Chloride) 100 mls @ 100 mls/hr IVPB Q12H [facility] Last Admin: 04/12/17 23:48 Dose: 100 mls/hr Sodium Chloride (Sodium Chloride 0.9%) 1,000 mls @ 100 mls/hr IV .Q10H [facility] Last Admin: 04/13/17 09:39 Dose: 100 mls/hr Insulin Human Regular (Humulin R Low) 0 units SC ACHS [facility] PRN Reason: Protocol Last Admin: 04/13/17 09:33 Dose: Not Given Megestrol Acetate (Megace) 40 mg PO DAILY [facility] Last Admin: 04/13/17 09:36 Dose: 40 mg Metoprolol Succinate (Toprol Xl) 25 mg PO DAILY [facility] Last Admin: 04/13/17 09:37 Dose: 25 mg Multivitamins (Thera Tab) 1 tab PO DAILY [facility] Last Admin: 04/13/17 09:37 Dose: 1 tab Mupirocin (Bactroban Ointment) 0 gm TOP BID [facility] Last Admin: 04/12/17 17:39 Dose: 1 unit Ondansetron HCl (Zofran Inj) 4 mg IVP Q4H PRN PRN Reason: Nausea/Vomiting Pantoprazole Sodium (Protonix Ec Tab) 40 mg PO DAILY [facility] Last Admin: 04/13/17 09:36 Dose: 40 mg Sodium Bicarbonate (Sodium Bicarbonate Tab) 1,300 mg PO QID [facility] Last Admin: 04/13/17 09:40 Dose: 1,300 mg - Labs Labs: 04/13/17 06:45 04/13/17 06:45 PT 14.7 SECONDS (9.4-12.5) H 04/10/17 16:05 INR 1.28 (0.93-1.08) H 04/10/17 16:05 APTT 33.0 Seconds (25.1-36.5) 04/10/17 16:05
[2017-04-13] MEDS ORDERED: Sodium Chloride 0.45% 1,000 ML IV SCH (10:45)
--- NOTE | 2017-04-13 11:49 | CP.PCM.PN ---
<Asif Newell - Last Filed: 04/13/17 14:38> Subjective - Date & Time of Evaluation Date of Evaluation: 04/13/17 Time of Evaluation: 07:30 - Subjective Subjective: Asif Newell DO PGY1 - IM Progress Note Patient seen and examined at bedside. Patient received blood transfusion yesterday, without any complications. Today, she continues to have some pain in her legs. Denies any chest pain, shortness of breath, fever, chills, nausea, vomiting. She had one loose waterry bowel movement yesterday. Patient did have midline placed yesterday. Objective - Vital Signs/Intake and Output Vital Signs (last 24 hours): Temp Pulse Resp BP Pulse Ox 98 F 90 16 135/43 L 99 04/13/17 06:00 04/13/17 09:37 04/13/17 06:00 04/13/17 09:37 04/13/17 06:00 Intake and Output: 04/13/17 04/13/17 06:59 18:59 Intake Total 2720 Balance 2720 - Medications Medications: Current Medications Aspirin (Ecotrin) 81 mg PO DAILY [facility] Last Admin: 04/13/17 09:36 Dose: 81 mg Cyanocobalamin (Vitamin B12 1000 Mcg Tab) 500 mcg PO DAILY [facility] Last Admin: 04/13/17 09:36 Dose: 500 mcg Ferrous Sulfate (Feosol) 324 mg PO TID [facility] Last Admin: 04/13/17 09:36 Dose: 324 mg Heparin Sodium (Porcine) (Heparin) 5,000 units SC Q8 [facility] PRN Reason: Protocol Last Admin: 04/13/17 05:44 Dose: 5,000 units Home Med (Home Med) 1 unit PO DAILY@1200 [facility] Linezolid (Zyvox 600mg/300ml D5w) 600 mg in 300 mls @ 200 mls/hr IVPB Q12 [facility] PRN Reason: Protocol Stop: 04/20/17 10:42 Last Admin: 04/13/17 09:38 Dose: 200 mls/hr Meropenem 500 mg/ Sodium (Chloride) 100 mls @ 100 mls/hr IVPB Q12H [facility] Last Admin: 04/12/17 23:48 Dose: 100 mls/hr Sodium Chloride (Sodium Chloride 0.45%) 1,000 mls @ 100 mls/hr IV .Q10H [facility] Insulin Human Regular (Humulin R Low) 0 units SC ACHS [facility] PRN Reason: Protocol Last Admin: 04/13/17 09:33 Dose: Not Given Megestrol Acetate (Megace) 40 mg PO DAILY [facility] Last Admin: 04/13/17 09:36 Dose: 40 mg Metoprolol Succinate (Toprol Xl) 25 mg PO DAILY [facility] Last Admin: 04/13/17 09:37 Dose: 25 mg Multivitamins (Thera Tab) 1 tab PO DAILY [facility] Last Admin: 04/13/17 09:37 Dose: 1 tab Mupirocin (Bactroban Ointment) 0 gm TOP BID [facility] Last Admin: 04/12/17 17:39 Dose: 1 unit Ondansetron HCl (Zofran Inj) 4 mg IVP Q4H [facility]N PRN Reason: Nausea/Vomiting Pantoprazole Sodium (Protonix Ec Tab) 40 mg PO DAILY [facility] Last Admin: 04/13/17 09:36 Dose: 40 mg Sodium Bicarbonate (Sodium Bicarbonate Tab) 1,300 mg PO QID [facility] Last Admin: 04/13/17 09:40 Dose: 1,300 mg - Labs Labs: 04/13/17 06:45 04/13/17 06:45 PT 14.7 SECONDS (9.4-12.5) H 04/10/17 16:05 INR 1.28 (0.93-1.08) H 04/10/17 16:05 APTT 33.0 Seconds (25.1-36.5) 04/10/17 16:05 - Constitutional Appears: Non-toxic, No Acute Distress, Chronically Ill - Head Exam Head Exam: ATRAUMATIC, NORMOCEPHALIC - Eye Exam Eye Exam: EOMI, Normal appearance, PERRL - ENT Exam ENT Exam: Mucous Membranes Moist - Neck Exam Neck Exam: Normal Inspection - Respiratory Exam Respiratory Exam: Clear to Ausculation Bilateral, NORMAL BREATHING PATTERN - Cardiovascular Exam Cardiovascular Exam: RRR, +S1, +S2 - GI/Abdominal Exam GI & Abdominal Exam: Soft, Normal Bowel Sounds. absent: Tenderness - Extremities Exam Extremities Exam: absent: Calf Tenderness, Pedal Edema Additional comments: Right foot with amputated 2nd toe; ulcerated with necrotic appearing base Left foot with superficial ulceration on lateral malleolus - Neurological Exam Neurological Exam: Alert, Awake, Oriented x3 - Psychiatric Exam Psychiatric exam: Normal Affect, Normal Mood - Skin Skin Exam: Dry, Intact, Normal Color Assessment and Plan - Assessment and Plan (Free Text) Assessment: 61F with PMH of Diabetes mellitus type 2, anemia, peripheral arterial disease, GERD, osteomyelitis, esophageal stenosis, hypertension, chronic kidney disease, CAD, and arthritis who presents to the ED from the wound care clinic with Dr. Raymond for possible wound infection vs osteomyelitis of the right foot Plan: Sepsis 2/2 RLE osteomyelitis -Patient's vital signs improved; SIRS resolved -FREDY and transaminemia improving; limited administration of NSAIDs and Acetaminophen, prefer use of cooling blanket -Continue IVF -MRI of both feet significant for osteomyelitis of 2nd metatarsal of right foot -Continue Zyvox and Merrem per ID -Blood culture shows no growth after 48 hours -Wound culture shows Group B Beta Hemolytic Strep -Per podiatry, patient will require amputation, in addition to IV antibiotics, after medical stabilization -Vascular Surgery consulted - Dr. Najera -ID consulted - Dr. Nair -Podiatry consulted - Dr. Mattson Anemia -Hgb dropped to 6.7 yesterday; received 2uPRBC; Hgb increased >11 today -Continue to monitor FREDY -Likely prerenal, considering septic state; improving -Urine studies pending -Continue IVF hydration and PO hydration -Nephrology consulted (Dr. Reyes), recs appreciated Hypernatremia -Sodium increased again today -Patient has multiple sources of hypoosmotic fluid loss -Switch IVF to 1/2 NS Elevated LFTs -Trending down; likely secondary to ischemia in shock state Diabetes mellitus type 2 -low dose sliding scale -Consistent carb diet -Fingersticks ACHS CAD -Continue ASA 81mg po daily GI/DVT prophylaxis -Protonix -Heparin Patient seen, discussed, and reviewed with attending Dr. Grover <Idalia Grover - Last Filed: 04/13/17 17:16> Objective - Vital Signs/Intake and Output Vital Signs (last 24 hours): Temp Pulse Resp BP Pulse Ox 98 F 91 H 20 157/68 H 99 04/13/17 12:00 04/13/17 12:00 04/13/17 12:00 04/13/17 12:00 04/13/17 06:00 Intake and Output: 04/13/17 04/13/17 06:59 18:59 Intake Total 2720 Balance 2720 - Medications Medications: Current Medications Aspirin (Ecotrin) 81 mg PO DAILY [facility] Last Admin: 04/13/17 09:36 Dose: 81 mg Cyanocobalamin (Vitamin B12 1000 Mcg Tab) 500 mcg PO DAILY [facility] Last Admin: 04/13/17 09:36 Dose: 500 mcg Ferrous Sulfate (Feosol) 324 mg PO TID [facility] Last Admin: 04/13/17 09:36 Dose: 324 mg Heparin Sodium (Porcine) (Heparin) 5,000 units SC Q8 [facility] PRN Reason: Protocol Last Admin: 04/13/17 05:44 Dose: 5,000 units Home Med (Home Med) 1 unit PO DAILY@1200 [facility] Linezolid (Zyvox 600mg/300ml D5w) 600 mg in 300 mls @ 200 mls/hr IVPB Q12 [facility] PRN Reason: Protocol Stop: 04/20/17 10:42 Last Admin: 04/13/17 09:38 Dose: 200 mls/hr Sodium Chloride (Sodium Chloride 0.45%) 1,000 mls @ 100 mls/hr IV .Q10H [facility] Insulin Human Regular (Humulin R Low) 0 units SC ACHS [facility] PRN Reason: Protocol Last Admin: 04/13/17 13:11 Dose: 2 units Megestrol Acetate (Megace) 40 mg PO DAILY [facility] Last Admin: 04/13/17 09:36 Dose: 40 mg Metoprolol Succinate (Toprol Xl) 25 mg PO DAILY [facility] Last Admin: 04/13/17 09:37 Dose: 25 mg Multivitamins (Thera Tab) 1 tab PO DAILY [facility] Last Admin: 04/13/17 09:37 Dose: 1 tab Mupirocin (Bactroban Ointment) 0 gm TOP BID [facility] Last Admin: 04/12/17 17:39 Dose: 1 unit Ondansetron HCl (Zofran Inj) 4 mg IVP Q4H PRN PRN Reason: Nausea/Vomiting Pantoprazole Sodium (Protonix Ec Tab) 40 mg PO DAILY [facility] Last Admin: 04/13/17 09:36 Dose: 40 mg Sodium Bicarbonate (Sodium Bicarbonate Tab) 1,300 mg PO QID [facility] Last Admin: 04/13/17 09:40 Dose: 1,300 mg - Labs Labs: 04/13/17 06:45 04/13/17 06:45 PT 14.7 SECONDS (9.4-12.5) H 04/10/17 16:05 INR 1.28 (0.93-1.08) H 04/10/17 16:05 APTT 33.0 Seconds (25.1-36.5) 04/10/17 16:05 Attending/Attestation - Attestation I have personally seen and examined this patient.: Yes I have fully participated in the care of the patient.: Yes I have reviewed all pertinent clinical information, including history, physical exam and plan: Yes Notes (Text): I have seen and examined the patient at bedside. Agree with the above note with the following additions/ exceptions: Briefly this is 61 year old female with history of DM-2, chronic anemia, chronic diarrhea, PAD, GERD, esophageal stenosis, HTN, CKD, CAD and RA who was sent by lapping machine tender for evaluation of osteomyelitis of right foot. She has severe sepsis secondary to osteomyelitis of right foot. Wound culture is growing beta hemolytic group B. She is afebrile now. Will continue IV antibiotics empirically for now. CASSIDY is mildly abnormal. Podiatry is planning to do amputation. Patient also has hypernatremia and is currently on 1/2 NS. Nephro on board.She has transamitis. Hep panel is negative. CT scan revealed fatty infiltration. Hyperkalemia resolved. She continue to have diarrhea which is chronic. Cdiff is negative. Upon discharge patient will follow up with Dr Chavez. Dr Idalia Grover
[2017-04-13] MEDS: Meropenem 500 MG in Sodium Chloride 0.9% 100 ML IVPB SCH (13:12)
--- NOTE | 2017-04-13 14:18 | CP.PCM.PN ---
Subjective - Date & Time of Evaluation Date of Evaluation: 04/13/17 Time of Evaluation: 11:50 - Subjective Subjective: Denies overt pain in the right leg, no fevers overnight, not in distress. Objective - Vital Signs/Intake and Output Vital Signs (last 24 hours): Temp Pulse Resp BP Pulse Ox 98 F 90 16 135/43 L 99 04/13/17 06:00 04/13/17 09:37 04/13/17 06:00 04/13/17 09:37 04/13/17 06:00 Intake and Output: 04/13/17 04/13/17 06:59 18:59 Intake Total 2720 Balance 2720 - Medications Medications: Current Medications Aspirin (Ecotrin) 81 mg PO DAILY [facility] Last Admin: 04/13/17 09:36 Dose: 81 mg Cyanocobalamin (Vitamin B12 1000 Mcg Tab) 500 mcg PO DAILY [facility] Last Admin: 04/13/17 09:36 Dose: 500 mcg Ferrous Sulfate (Feosol) 324 mg PO TID [facility] Last Admin: 04/13/17 09:36 Dose: 324 mg Heparin Sodium (Porcine) (Heparin) 5,000 units SC Q8 [facility] PRN Reason: Protocol Last Admin: 04/13/17 05:44 Dose: 5,000 units Home Med (Home Med) 1 unit PO DAILY@1200 [facility] Linezolid (Zyvox 600mg/300ml D5w) 600 mg in 300 mls @ 200 mls/hr IVPB Q12 [facility] PRN Reason: Protocol Stop: 04/20/17 10:42 Last Admin: 04/13/17 09:38 Dose: 200 mls/hr Meropenem 500 mg/ Sodium (Chloride) 100 mls @ 100 mls/hr IVPB Q12H [facility] Last Admin: 04/12/17 23:48 Dose: 100 mls/hr Sodium Chloride (Sodium Chloride 0.45%) 1,000 mls @ 100 mls/hr IV .Q10H [facility] Insulin Human Regular (Humulin R Low) 0 units SC ACHS [facility] PRN Reason: Protocol Last Admin: 04/13/17 09:33 Dose: Not Given Megestrol Acetate (Megace) 40 mg PO DAILY [facility] Last Admin: 04/13/17 09:36 Dose: 40 mg Metoprolol Succinate (Toprol Xl) 25 mg PO DAILY [facility] Last Admin: 04/13/17 09:37 Dose: 25 mg Multivitamins (Thera Tab) 1 tab PO DAILY [facility] Last Admin: 04/13/17 09:37 Dose: 1 tab Mupirocin (Bactroban Ointment) 0 gm TOP BID [facility] Last Admin: 04/12/17 17:39 Dose: 1 unit Ondansetron HCl (Zofran Inj) 4 mg IVP Q4H PRN PRN Reason: Nausea/Vomiting Pantoprazole Sodium (Protonix Ec Tab) 40 mg PO DAILY [facility] Last Admin: 04/13/17 09:36 Dose: 40 mg Sodium Bicarbonate (Sodium Bicarbonate Tab) 1,300 mg PO QID [facility] Last Admin: 04/13/17 09:40 Dose: 1,300 mg - Labs Labs: 04/13/17 06:45 04/13/17 06:45 PT 14.7 SECONDS (9.4-12.5) H 04/10/17 16:05 INR 1.28 (0.93-1.08) H 04/10/17 16:05 APTT 33.0 Seconds (25.1-36.5) 04/10/17 16:05 - Constitutional Appears: Cachectic, Chronically Ill - Head Exam Head Exam: NORMAL INSPECTION - Neck Exam Neck Exam: absent: Meningismus - Respiratory Exam Respiratory Exam: Decreased Breath Sounds - Cardiovascular Exam Cardiovascular Exam: +S1, +S2 - GI/Abdominal Exam GI & Abdominal Exam: Soft. absent: Tenderness - Extremities Exam Additional comments: right leg with dressings in place Assessment and Plan - Assessment and Plan (Free Text) Plan: Assessment severe sepsis due to right foot cellulitis with chronic osteomyelitis history of Acute osteomyelitis of the left foot; growing beta hemolytic strep DM Plan Continue Zyvox and Merrem - patient is planned for repeat MRI this coming week as well as Vascular work up - will monitor clinically
--- NOTE | 2017-04-13 16:37 | CP.PCM.PN ---
<JavierGiovannasara - Last Filed: 04/13/17 16:32> Subjective - Date & Time of Evaluation Date of Evaluation: 04/13/17 Time of Evaluation: 16:32 - Subjective Subjective: 61 y/o female known to Dr. Mattson/Segundo's service seen at bedside regarding right foot ulceration. Patient is AAOx3 and is in NAD. Patient denies of having any acute overnight events. Denies F/C/N/V/CP/SOB. Denies of having any new complains at this time. Objective - Vital Signs/Intake and Output Vital Signs (last 24 hours): Temp Pulse Resp BP Pulse Ox 98 F 91 H 20 157/68 H 99 04/13/17 12:00 04/13/17 12:00 04/13/17 12:00 04/13/17 12:00 04/13/17 06:00 Intake and Output: 04/13/17 04/13/17 06:59 18:59 Intake Total 2720 Balance 2720 - Medications Medications: Current Medications Aspirin (Ecotrin) 81 mg PO DAILY [facility] Last Admin: 04/13/17 09:36 Dose: 81 mg Cyanocobalamin (Vitamin B12 1000 Mcg Tab) 500 mcg PO DAILY [facility] Last Admin: 04/13/17 09:36 Dose: 500 mcg Ferrous Sulfate (Feosol) 324 mg PO TID [facility] Last Admin: 04/13/17 09:36 Dose: 324 mg Heparin Sodium (Porcine) (Heparin) 5,000 units SC Q8 [facility] PRN Reason: Protocol Last Admin: 04/13/17 05:44 Dose: 5,000 units Home Med (Home Med) 1 unit PO DAILY@1200 [facility] Linezolid (Zyvox 600mg/300ml D5w) 600 mg in 300 mls @ 200 mls/hr IVPB Q12 [facility] PRN Reason: Protocol Stop: 04/20/17 10:42 Last Admin: 04/13/17 09:38 Dose: 200 mls/hr Sodium Chloride (Sodium Chloride 0.45%) 1,000 mls @ 100 mls/hr IV .Q10H [facility] Insulin Human Regular (Humulin R Low) 0 units SC ACHS [facility] PRN Reason: Protocol Last Admin: 04/13/17 13:11 Dose: 2 units Megestrol Acetate (Megace) 40 mg PO DAILY [facility] Last Admin: 04/13/17 09:36 Dose: 40 mg Metoprolol Succinate (Toprol Xl) 25 mg PO DAILY [facility] Last Admin: 04/13/17 09:37 Dose: 25 mg Multivitamins (Thera Tab) 1 tab PO DAILY [facility] Last Admin: 04/13/17 09:37 Dose: 1 tab Mupirocin (Bactroban Ointment) 0 gm TOP BID [facility] Last Admin: 04/12/17 17:39 Dose: 1 unit Ondansetron HCl (Zofran Inj) 4 mg IVP Q4H PRN PRN Reason: Nausea/Vomiting Pantoprazole Sodium (Protonix Ec Tab) 40 mg PO DAILY [facility] Last Admin: 04/13/17 09:36 Dose: 40 mg Sodium Bicarbonate (Sodium Bicarbonate Tab) 1,300 mg PO QID [facility] Last Admin: 04/13/17 09:40 Dose: 1,300 mg - Labs Labs: 04/13/17 06:45 04/13/17 06:45 PT 14.7 SECONDS (9.4-12.5) H 04/10/17 16:05 INR 1.28 (0.93-1.08) H 04/10/17 16:05 APTT 33.0 Seconds (25.1-36.5) 04/10/17 16:05 - Constitutional Appears: Well, Non-toxic, No Acute Distress - Head Exam Head Exam: ATRAUMATIC - Extremities Exam Additional comments: Right lower extremity focused examination: Vasc: DP/PT pulses faintly palpable 2/4. Temperature gradient warm to warm. CFT < 3 sec x 4 digits. Derm: Eschar noted to dorsum of right foot 1st interspace at site of previous 2nd digit amputation. Post excisional debridement, two open ulcerations present - one dorsally and one plantarly, connecting to form a sinus tract. Dorsal ulceration measures approx 1cm x 0.7cm x 0.5cm in depth, (+) for purulent drainage and probes down to 2nd metatarsal bone. Dorsal ulceration connects to plantar sub met head 2 ulceration, which measures approx 0.5cm x 0.4cm x 0.5cm. Wound borders are negative for hyperkeratosis or maceration. Kerrie wound erythema noted to both wounds. Neuro: Protective sensation is grossly intact to R foot Ortho: Mild-moderate tenderness to palpation of right foot interspace ulceration - Neurological Exam Neurological Exam: Alert, Awake, Oriented x3 - Psychiatric Exam Psychiatric exam: Normal Affect, Normal Mood Assessment and Plan - Assessment and Plan (Free Text) Assessment: 61 y/o female with right foot ulceration with clinical osteomyelitis, (+) probe to bone Plan: Pt seen and evaluated at bedside with attending Dr. Mattson Labs and vitals reviewed- afebrile, WBC 3.7 Wound culture taken 04/10 pending, prelim shows B hemolytic, group B Continue IV abx per ID - Zyvox R foot eschar/ulcerations cleansed with saline Cleaned wound with betadine and dressed with bactroban DSD Multipodus boots while in bed Arterial duplex scan - mildly abnormal CASSIDY MRI of the R foot: Possible OM; strong clinical suspicion of OM Podiatry plans for surgical intervention at this time Podiatry will continue to follow patient while in house <Jose Raymond - Last Filed: 04/14/17 07:04> Objective - Vital Signs/Intake and Output Vital Signs (last 24 hours): Temp Pulse Resp BP Pulse Ox 98.0 F 91 H 18 153/75 H 98 04/14/17 00:01 04/14/17 02:00 04/14/17 00:01 04/14/17 00:01 04/14/17 00:01 Intake and Output: 04/14/17 04/14/17 06:59 18:59 Intake Total 480 Balance 480 - Medications Medications: Current Medications Aspirin (Ecotrin) 81 mg PO DAILY [facility] Last Admin: 04/13/17 09:36 Dose: 81 mg Cyanocobalamin (Vitamin B12 1000 Mcg Tab) 500 mcg PO DAILY [facility] Last Admin: 04/13/17 09:36 Dose: 500 mcg Ferrous Sulfate (Feosol) 324 mg PO TID [facility] Last Admin: 04/13/17 16:30 Dose: 324 mg Heparin Sodium (Porcine) (Heparin) 5,000 units SC Q8 [facility] PRN Reason: Protocol Last Admin: 04/14/17 05:20 Dose: 5,000 units Home Med (Home Med) 1 unit PO DAILY@1200 [facility] Last Admin: 04/13/17 17:13 Dose: Not Given Linezolid (Zyvox 600mg/300ml D5w) 600 mg in 300 mls @ 200 mls/hr IVPB Q12 [facility] PRN Reason: Protocol Stop: 04/20/17 10:42 Last Admin: 04/13/17 21:37 Dose: 200 mls/hr Sodium Chloride (Sodium Chloride 0.45%) 1,000 mls @ 100 mls/hr IV .Q10H [facility] Last Admin: 04/13/17 20:10 Dose: 100 mls/hr Insulin Human Regular (Humulin R Low) 0 units SC ACHS [facility] PRN Reason: Protocol Last Admin: 04/13/17 21:33 Dose: Not Given Megestrol Acetate (Megace) 40 mg PO DAILY [facility] Last Admin: 04/13/17 09:36 Dose: 40 mg Metoprolol Succinate (Toprol Xl) 25 mg PO DAILY [facility] Last Admin: 04/13/17 09:37 Dose: 25 mg Multivitamins (Thera Tab) 1 tab PO DAILY [facility] Last Admin: 04/13/17 09:37 Dose: 1 tab Mupirocin (Bactroban Ointment) 0 gm TOP BID [facility] Last Admin: 04/13/17 10:12 Dose: 1 unit Ondansetron HCl (Zofran Inj) 4 mg IVP Q4H [facility] PRN Reason: Nausea/Vomiting Pantoprazole Sodium (Protonix Ec Tab) 40 mg PO DAILY [facility] Last Admin: 04/13/17 09:36 Dose: 40 mg Sodium Bicarbonate (Sodium Bicarbonate Tab) 1,300 mg PO QID [facility] Last Admin: 04/13/17 21:38 Dose: 1,300 mg - Labs Labs: 04/13/17 06:45 04/13/17 06:45 PT 14.7 SECONDS (9.4-12.5) H 04/10/17 16:05 INR 1.28 (0.93-1.08) H 04/10/17 16:05 APTT 33.0 Seconds (25.1-36.5) 04/10/17 16:05 Attending/Attestation - Attestation I have personally seen and examined this patient.: Yes I have fully participated in the care of the patient.: Yes I have reviewed all pertinent clinical information, including history, physical exam and plan: Yes
[2017-04-13] MEDS: VELTASSA 8.4 GM PO SCH (17:13)
--- NOTE | 2017-04-13 23:40 | CON ---
DATE: REASON FOR CONSULTATION: Bilateral foot ulcer, diabetic arteriopathy, possible osteomyelitis. HISTORY OF PRESENT ILLNESS: The patient is a 61-year-old woman who has adult-onset diabetes for 10 years. She had multiple health problems including foot ulcer for the past 2 years. She had been followed in the wound care clinic and at this time, she is admitted for possible osteomyelitis with cellulitis. PAST MEDICAL HISTORY: Significant for coronary artery disease, chronic renal failure secondary to diabetic nephropathy, and diabetes mellitus. She also has GERD, esophageal stenosis, and hypertension. MEDICATIONS: She is on aspirin, vitamin B12, Januvia, glipizide, loperamide, and pantoprazole. PAST SURGICAL HISTORY: She had a left first toe amputation and cholecystectomy. FAMILY HISTORY: Positive for congestive heart failure and diabetes mellitus. SOCIAL HISTORY: She has never smoked. She lives at home with her and she walks with a cane due to balance problems. REVIEW OF SYSTEMS: The rest of 14-point review of systems was unremarkable other than what is stated in the past medical history. PHYSICAL EXAMINATION: GENERAL: Showed a cachectic, slender woman with no complaints. VITAL SIGNS: Blood pressure is 140/43, heart rate is 88 and regular rhythm. HEENT: Within normal limits. CHEST: Clear. ABDOMEN: Soft. EXTREMITIES: She has palpable femoral, popliteal, dorsalis pedis and posterior tibial pulses. Both legs have multiple absent digits. The right foot redness has decreased. Noninvasive vascular study showed bilateral CASSIDY of 0.77. LABORATORY DATA: Showed hemoglobin of 7.7 and she was transfused up to 11.3. On admission, her creatinine was 2.3; with hydration, it is down to 1.5 currently. The BUN was 42 on admission, and it is 16 now. Noninvasive vascular study was reviewed. IMPRESSION: The patient has palpable pedal pulses. There is no indication for vascular intervention at this moment. She can most likely tolerate debridement of her foot if indicated. Virginie Najera MD
--- NOTE | 2017-04-14 08:35 | CP.PCM.PN ---
<SudhakarJosephine - Last Filed: 04/14/17 08:37> Subjective - Date & Time of Evaluation Date of Evaluation: 04/14/17 Time of Evaluation: 08:31 - Subjective Subjective: 61 y/o female known to Dr. Mattson/Segundo's service seen at bedside with attending Dr. Raymond regarding right foot ulceration. Patient is AAOx3 and is in NAD. Patient denies any acute overnight events. Denies F/C/N/V/CP/SOB. Has no new pedal complaints at this time. Dressings have remained C/D/I to bilateral lower extremities. Objective - Vital Signs/Intake and Output Vital Signs (last 24 hours): Temp Pulse Resp BP Pulse Ox 98.1 F 94 H 19 158/78 H 99 04/14/17 06:00 04/14/17 06:00 04/14/17 06:00 04/14/17 06:00 04/14/17 06:00 Intake and Output: 04/14/17 04/14/17 06:59 18:59 Intake Total 480 120 Output Total 200 Balance 480 -80 - Medications Medications: Current Medications Aspirin (Ecotrin) 81 mg PO DAILY [facility] Last Admin: 04/13/17 09:36 Dose: 81 mg Cyanocobalamin (Vitamin B12 1000 Mcg Tab) 500 mcg PO DAILY [facility] Last Admin: 04/13/17 09:36 Dose: 500 mcg Ferrous Sulfate (Feosol) 324 mg PO TID [facility] Last Admin: 04/13/17 16:30 Dose: 324 mg Heparin Sodium (Porcine) (Heparin) 5,000 units SC Q8 [facility] PRN Reason: Protocol Last Admin: 04/14/17 05:20 Dose: 5,000 units Home Med (Home Med) 1 unit PO DAILY@1200 [facility] Last Admin: 04/13/17 17:13 Dose: Not Given Linezolid (Zyvox 600mg/300ml D5w) 600 mg in 300 mls @ 200 mls/hr IVPB Q12 [facility] PRN Reason: Protocol Stop: 04/20/17 10:42 Last Admin: 04/13/17 21:37 Dose: 200 mls/hr Sodium Chloride (Sodium Chloride 0.45%) 1,000 mls @ 100 mls/hr IV .Q10H [facility] Last Admin: 04/13/17 20:10 Dose: 100 mls/hr Insulin Human Regular (Humulin R Low) 0 units SC ACHS [facility] PRN Reason: Protocol Last Admin: 04/13/17 21:33 Dose: Not Given Megestrol Acetate (Megace) 40 mg PO DAILY [facility] Last Admin: 04/13/17 09:36 Dose: 40 mg Metoprolol Succinate (Toprol Xl) 25 mg PO DAILY [facility] Last Admin: 04/13/17 09:37 Dose: 25 mg Multivitamins (Thera Tab) 1 tab PO DAILY [facility] Last Admin: 04/13/17 09:37 Dose: 1 tab Mupirocin (Bactroban Ointment) 0 gm TOP BID [facility] Last Admin: 04/13/17 10:12 Dose: 1 unit Ondansetron HCl (Zofran Inj) 4 mg IVP Q4H [facility] PRN Reason: Nausea/Vomiting Pantoprazole Sodium (Protonix Ec Tab) 40 mg PO DAILY [facility] Last Admin: 04/13/17 09:36 Dose: 40 mg Sodium Bicarbonate (Sodium Bicarbonate Tab) 1,300 mg PO QID [facility] Last Admin: 04/13/17 21:38 Dose: 1,300 mg - Labs Labs: 04/13/17 06:45 04/13/17 06:45 PT 14.7 SECONDS (9.4-12.5) H 04/10/17 16:05 INR 1.28 (0.93-1.08) H 04/10/17 16:05 APTT 33.0 Seconds (25.1-36.5) 04/10/17 16:05 - Constitutional Appears: Well, Non-toxic, No Acute Distress - Extremities Exam Additional comments: Lower extremity focused examination: Vasc: DP/PT pulses palpable 2/4 B/L. Temperature gradient warm to warm. CFT < 3 sec to all digits Derm: Two open ulcerations noted to distal aspect of right foot 2nd metatarsal head at previous 2nd digit amputaton site- one dorsally and one plantarly, connecting to form a sinus tract. Dorsal ulceration measures approx 1cm x 0.7cm x 0.5cm in depth, (+) probe to 2nd metatarsal bone. Dorsal ulceration connects to plantar sub met head 2 ulceration, which measures approx 0.5cm x 0.4cm x 0.5cm. Wound borders are negative for hyperkeratosis or maceration. Kerrie wound erythema noted to both wounds. Additional superficial ulceration noted to left lateral malleolus with mixed fibrogranular base; periwound negative for erythema ; no malodor, drainage, purulence, tunneling or undermining Neuro: Protective sensation is grossly intact B/L Ortho: Mild tenderness to palpation of right foot interspace ulceration. Left ankle ulceration mildly tender - Neurological Exam Neurological Exam: Alert, Awake, Oriented x3 - Psychiatric Exam Psychiatric exam: Normal Affect, Normal Mood Assessment and Plan - Assessment and Plan (Free Text) Assessment: 61 y/o female with 1) right foot ulceration with clinical osteomyelitis, (+) probe to bone 2) left ankle ulceration, stable Plan: Pt seen and evaluated at bedside with attending Dr. Raymond Labs and vitals reviewed- afebrile, WBC 3.7 Wound culture (+) for B hemolytic strep group B Bilateral ulcerations cleansed with saline Right foot ulceration dressed with hydrogel and DSD Left ankle ulceration dressed with bactroban and Optifoam Continue Multipodus boots while in bed Arterial duplex scan - mildly abnormal CASSIDY MRI of the R foot: marrow edema of 2nd metatarsal consistent with OM; strong clinical suspicion of OM Podiatry holding off on surgical intervention at this time Continue IV abx as per ID - Zyvox, [facility] Podiatry will continue to follow patient while in house <Jose Raymond - Last Filed: 04/14/17 15:34> Objective - Vital Signs/Intake and Output Vital Signs (last 24 hours): Temp Pulse Resp BP Pulse Ox 98.3 F 111 H 20 140/74 99 04/14/17 12:00 04/14/17 12:00 04/14/17 12:00 04/14/17 12:00 04/14/17 06:00 Intake and Output: 04/14/17 04/14/17 06:59 18:59 Intake Total 480 120 Output Total 200 Balance 480 -80 - Medications Medications: Current Medications Aspirin (Ecotrin) 81 mg PO DAILY [facility] Last Admin: 04/14/17 09:16 Dose: 81 mg Cyanocobalamin (Vitamin B12 1000 Mcg Tab) 500 mcg PO DAILY [facility] Last Admin: 04/14/17 09:17 Dose: 500 mcg Ferrous Sulfate (Feosol) 324 mg PO TID [facility] Last Admin: 04/14/17 14:14 Dose: 324 mg Heparin Sodium (Porcine) (Heparin) 5,000 units SC Q8 [facility] PRN Reason: Protocol Last Admin: 04/14/17 14:15 Dose: 5,000 units Home Med (Home Med) 1 unit PO DAILY@1200 [facility] Last Admin: 04/14/17 12:12 Dose: 1 unit Linezolid (Zyvox 600mg/300ml D5w) 600 mg in 300 mls @ 200 mls/hr IVPB Q12 [facility] PRN Reason: Protocol Stop: 04/20/17 10:42 Last Admin: 04/14/17 09:18 Dose: 200 mls/hr Sodium Chloride (Sodium Chloride 0.45%) 1,000 mls @ 75 mls/hr IV .[id number] [facility] Last Admin: 04/14/17 12:20 Dose: 75 mls/hr Insulin Human Regular (Humulin R Low) 0 units SC ACHS [facility] PRN Reason: Protocol Last Admin: 04/14/17 12:09 Dose: 3 units Megestrol Acetate (Megace) 40 mg PO DAILY [facility] Last Admin: 04/14/17 09:16 Dose: 40 mg Metoprolol Succinate (Toprol Xl) 25 mg PO DAILY [facility] Last Admin: 04/14/17 09:17 Dose: 25 mg Multivitamins (Thera Tab) 1 tab PO DAILY [facility] Last Admin: 04/14/17 09:16 Dose: 1 tab Mupirocin (Bactroban Ointment) 0 gm TOP BID [facility] Last Admin: 04/14/17 09:30 Dose: 1 unit Ondansetron HCl (Zofran Inj) 4 mg IVP Q4H [facility] PRN Reason: Nausea/Vomiting Last Admin: 04/14/17 12:11 Dose: 4 mg Pantoprazole Sodium (Protonix Ec Tab) 40 mg PO DAILY [facility] Last Admin: 04/14/17 09:16 Dose: 40 mg Sodium Bicarbonate (Sodium Bicarbonate Tab) 1,300 mg PO QID [facility] Last Admin: 04/14/17 14:14 Dose: 1,300 mg - Labs Labs: 04/14/17 07:30 04/14/17 07:30 PT 14.7 SECONDS (9.4-12.5) H 04/10/17 16:05 INR 1.28 (0.93-1.08) H 01/30/18 16:05 APTT 33.0 Seconds (25.1-36.5) 04/10/17 16:05 Addendum Addendum: 04/14/17 After factoring in the possible irreversible renal damage that a 4-6 week course of iv antibiotics could create, surgical resection of her osteomyelitic second metatarsal must be considered. We will discuss the need for surgery with Courtney and reach out to Dr. Najera in an effort to get a clearer picture of her lower extremity perfusion and to determine if vascular intervention is warranted before pedal resection is attempted
[2017-04-14 08:36] LABS: BASO # 0.02 K/mm3 (0.0-2.0); BASO % 0.4 % (0.0-3.0); EOS # 0.3 (0.0-0.7); EOS % 7.1 % (1.5-5.0); GRAN # 2.49 (1.4-6.5); GRAN % 52.4 % (50.0-68.0); HEMOGLOBIN 11.9 g/dL (12.0-16.0); LYMPH # 1.4 (1.2-3.4); LYMPH % 29.4 % (22.0-35.0); MEAN CELL VOLUME 89.8 fl (80.0-105.0); MEAN CORPUSCULAR HGB CONC 32.2 g/dl (31.0-37.0); MEAN PLATELET VOLUME 9.9 fl (7.0-11.0); MONO # 0.5 (0.1-0.6); MONO % 10.7 % (1.0-6.0); RBC 4.11 10^6/uL (3.5-6.1); RED CELL DISTRIBUTION WIDTH 15.6 % (11.5-14.5); WHITE BLOOD COUNT 4.8 10^3/ul (4.5-11.0)
[2017-04-14 08:59] LABS: ALBUMIN 3.4 g/dL (3.0-4.8); CALCIUM 9.4 mg/dL (8.4-10.5)
[2017-04-14] MEDS: Insulin Reg-LOW-Coverage SC SCH ×4 (08:59→22:05)
[2017-04-14] MEDS: Multivitamin Therapeutic Tab PO SCH (09:16)
[2017-04-14] MEDS: Pantoprazole 40 mg EC Tab PO SCH (09:16)
[2017-04-14] MEDS: Metoprolol Succinate 25 mg XL Tab PO SCH (09:17)
[2017-04-14] MEDS: Linezolid 600 mg in D5W 300 ml 600 MG/300 ML BAG IVPB SCH (09:18)
[2017-04-14] MEDS: VELTASSA 8.4 GM PO SCH (12:12)
[2017-04-14] MEDS: Sodium Chloride 0.45% 1,000 ML IV SCH ×2 (12:20→22:04)
--- NOTE | 2017-04-14 12:23 | CP.PCM.PN ---
<Asif Newell - Last Filed: 04/14/17 16:49> Subjective - Date & Time of Evaluation Date of Evaluation: 04/14/17 Time of Evaluation: 07:30 - Subjective Subjective: Asif Newell DO PGY1 - IM Progress Note Patient seen and examined at bedside. No acute events overnight. Patient complaining of soreness in her legs, and would like to walk around, rather than stay in bed. She denies any fevers or chills. She also denies chest pain, shortness of breath, headache, nausea, vomiting, abdominal pain. She does report one large episode of diarrhea yesterday, with some abdominal discomfort afterwards. Objective - Vital Signs/Intake and Output Vital Signs (last 24 hours): Temp Pulse Resp BP Pulse Ox 98.1 F 94 H 19 158/78 H 99 04/14/17 06:00 04/14/17 10:00 04/14/17 06:00 04/14/17 09:17 04/14/17 06:00 Intake and Output: 04/14/17 04/14/17 06:59 18:59 Intake Total 480 120 Output Total 200 Balance 480 -80 - Medications Medications: Current Medications Aspirin (Ecotrin) 81 mg PO DAILY [facility] Last Admin: 04/14/17 09:16 Dose: 81 mg Cyanocobalamin (Vitamin B12 1000 Mcg Tab) 500 mcg PO DAILY [facility] Last Admin: 04/14/17 09:17 Dose: 500 mcg Ferrous Sulfate (Feosol) 324 mg PO TID [facility] Last Admin: 04/14/17 09:16 Dose: 324 mg Heparin Sodium (Porcine) (Heparin) 5,000 units SC Q8 [facility] PRN Reason: Protocol Last Admin: 04/14/17 05:20 Dose: 5,000 units Home Med (Home Med) 1 unit PO DAILY@1200 [facility] Last Admin: 04/14/17 12:12 Dose: 1 unit Linezolid (Zyvox 600mg/300ml D5w) 600 mg in 300 mls @ 200 mls/hr IVPB Q12 [facility] PRN Reason: Protocol Stop: 04/20/17 10:42 Last Admin: 04/14/17 09:18 Dose: 200 mls/hr Sodium Chloride (Sodium Chloride 0.45%) 1,000 mls @ 75 mls/hr IV .[id number] [facility] Insulin Human Regular (Humulin R Low) 0 units SC ACHS [facility] PRN Reason: Protocol Last Admin: 04/14/17 12:09 Dose: 3 units Megestrol Acetate (Megace) 40 mg PO DAILY [facility] Last Admin: 04/14/17 09:16 Dose: 40 mg Metoprolol Succinate (Toprol Xl) 25 mg PO DAILY [facility] Last Admin: 04/14/17 09:17 Dose: 25 mg Multivitamins (Thera Tab) 1 tab PO DAILY [facility] Last Admin: 04/14/17 09:16 Dose: 1 tab Mupirocin (Bactroban Ointment) 0 gm TOP BID [facility] Last Admin: 04/14/17 09:30 Dose: 1 unit Ondansetron HCl (Zofran Inj) 4 mg IVP Q4H PRN PRN Reason: Nausea/Vomiting Last Admin: 04/14/17 12:11 Dose: 4 mg Pantoprazole Sodium (Protonix Ec Tab) 40 mg PO DAILY [facility] Last Admin: 04/14/17 09:16 Dose: 40 mg Sodium Bicarbonate (Sodium Bicarbonate Tab) 1,300 mg PO QID [facility] Last Admin: 04/14/17 09:18 Dose: 1,300 mg - Labs Labs: 04/14/17 07:30 04/14/17 07:30 PT 14.7 SECONDS (9.4-12.5) H 04/10/17 16:05 INR 1.28 (0.93-1.08) H 04/10/17 16:05 APTT 33.0 Seconds (25.1-36.5) 04/10/17 16:05 - Constitutional Appears: Non-toxic, No Acute Distress, Chronically Ill - Head Exam Head Exam: ATRAUMATIC, NORMOCEPHALIC - Eye Exam Eye Exam: EOMI, Normal appearance, PERRL - ENT Exam ENT Exam: Mucous Membranes Moist - Neck Exam Neck Exam: Normal Inspection - Respiratory Exam Respiratory Exam: Clear to Ausculation Bilateral, NORMAL BREATHING PATTERN - Cardiovascular Exam Cardiovascular Exam: RRR, +S1, +S2 - GI/Abdominal Exam GI & Abdominal Exam: Soft. absent: Tenderness - Extremities Exam Extremities Exam: absent: Calf Tenderness, Pedal Edema Additional comments: Right foot with amputated 2nd toe; ulcerated with necrotic appearing base Left foot with superficial ulceration on lateral malleolus - Neurological Exam Neurological Exam: Alert, Awake, Oriented x3 - Psychiatric Exam Psychiatric exam: Normal Affect, Normal Mood - Skin Skin Exam: Dry, Intact, Normal Color Assessment and Plan - Assessment and Plan (Free Text) Assessment: 61F with PMH of Diabetes mellitus type 2, anemia, peripheral arterial disease, GERD, osteomyelitis, esophageal stenosis, hypertension, chronic kidney disease, CAD, and arthritis who presents to the ED from the wound care clinic with Dr. Raymond for osteomyelitis of the right foot Plan: Osteomyelitis R 2nd metatarsal -Patient's vital signs improved; SIRS resolved -Continue IVF -Continue Zyvox per ID; merrem discontinued after sensitivity results -Blood culture shows no growth after 3 days -Wound culture shows Group B Beta Hemolytic Strep -Per podiatry and vascular surgery, no surgical intervention at this time -PT Eval/Treat for gait training and weakness; partial weight bearing -Vascular Surgery consulted - Dr. Najera -ID consulted - Dr. Nair -Podiatry consulted - Dr. Mattson Anemia -H&H stable -Continue to monitor FREDY -Likely prerenal, considering septic state; improving -Urine studies pending -Continue IVF hydration and PO hydration -Nephrology consulted (Dr. Reyes), recs appreciated Hypernatremia -Continue hypoosmotic IVF - 1/2 NS @75cc/hr -Encourage PO water intake Elevated LFTs -Trended back up again -Viral hep panel negative; Abd US showed increased echogenicity, likely fatty liver Diabetes mellitus type 2 -low dose sliding scale -Consistent carb diet -Fingersticks ACHS CAD -Continue ASA 81mg po daily GI/DVT prophylaxis -Protonix -Heparin Patient seen, discussed, and reviewed with attending Dr. Grover <Idalia Grover - Last Filed: 04/14/17 18:00> Objective - Vital Signs/Intake and Output Vital Signs (last 24 hours): Temp Pulse Resp BP Pulse Ox 98.3 F 111 H 20 140/74 99 04/14/17 12:00 04/14/17 14:00 04/14/17 12:00 04/14/17 12:00 04/14/17 06:00 Intake and Output: 04/14/17 04/14/17 06:59 18:59 Intake Total 480 120 Output Total 200 Balance 480 -80 - Medications Medications: Current Medications Aspirin (Ecotrin) 81 mg PO DAILY [facility] Last Admin: 04/14/17 09:16 Dose: 81 mg Cyanocobalamin (Vitamin B12 1000 Mcg Tab) 500 mcg PO DAILY [facility] Last Admin: 04/14/17 09:17 Dose: 500 mcg Ferrous Sulfate (Feosol) 324 mg PO TID [facility] Last Admin: 04/14/17 17:15 Dose: 324 mg Heparin Sodium (Porcine) (Heparin) 5,000 units SC Q8 [facility] PRN Reason: Protocol Last Admin: 04/14/17 14:15 Dose: 5,000 units Home Med (Home Med) 1 unit PO DAILY@1200 [facility] Last Admin: 04/14/17 12:12 Dose: 1 unit Sodium Chloride (Sodium Chloride 0.45%) 1,000 mls @ 75 mls/hr IV .[id number] [facility] Last Admin: 04/14/17 12:20 Dose: 75 mls/hr Insulin Human Regular (Humulin R Low) 0 units SC ACHS [facility] PRN Reason: Protocol Last Admin: 04/14/17 17:19 Dose: 1 units Linezolid (Zyvox) 600 mg PO BID [facility] PRN Reason: Protocol Stop: 05/12/17 18:01 Megestrol Acetate (Megace) 40 mg PO DAILY [facility] Last Admin: 04/14/17 09:16 Dose: 40 mg Metoprolol Succinate (Toprol Xl) 25 mg PO DAILY [facility] Last Admin: 04/14/17 09:17 Dose: 25 mg Multivitamins (Thera Tab) 1 tab PO DAILY [facility] Last Admin: 04/14/17 09:16 Dose: 1 tab Mupirocin (Bactroban Ointment) 0 gm TOP BID [facility] Last Admin: 04/14/17 09:30 Dose: 1 unit Ondansetron HCl (Zofran Inj) 4 mg IVP Q4H PRN PRN Reason: Nausea/Vomiting Last Admin: 04/14/17 12:11 Dose: 4 mg Pantoprazole Sodium (Protonix Ec Tab) 40 mg PO DAILY [facility] Last Admin: 04/14/17 09:16 Dose: 40 mg Sodium Bicarbonate (Sodium Bicarbonate Tab) 1,300 mg PO QID [facility] Last Admin: 04/14/17 17:15 Dose: 1,300 mg - Labs Labs: 04/14/17 07:30 04/14/17 07:30 PT 14.7 SECONDS (9.4-12.5) H 04/10/17 16:05 INR 1.28 (0.93-1.08) H 04/10/17 16:05 APTT 33.0 Seconds (25.1-36.5) 04/10/17 16:05 Attending/Attestation - Attestation I have personally seen and examined this patient.: Yes I have fully participated in the care of the patient.: Yes I have reviewed all pertinent clinical information, including history, physical exam and plan: Yes Notes (Text): I have seen and examined the patient at bedside. Agree with the above note with the following additions/ exceptions: Briefly this is 61 year old female with history of DM-2, chronic anemia, chronic diarrhea, PAD, GERD, esophageal stenosis, HTN, CKD, CAD and RA who was sent by compliance aide for evaluation of osteomyelitis of right second metatarsal. She had severe sepsis secondary to osteomyelitis of right foot. Wound culture is growing beta hemolytic group B. She is afebrile now. Will continue zyvox. CASSIDY is mildly abnormal. Vascular consult appreciated. She has palpabale pulses. No surgical intervention is planned as per vascular. There was a possible plan for amputation. Will discuss with podiatry. Patient also has hypernatremia and is currently on 1/2 NS. Will decrease IVF. Nephro on board.She has transamitis. Hep panel is negative. CT scan revealed fatty infiltration. Hyperkalemia resolved. She continue to have diarrhea which is chronic. Cdiff is negative.Recommend diarrhea work up as an outpatient. Upon discharge patient will follow up with Dr Chavez. Dr Idalia Grover
--- NOTE | 2017-04-14 16:48 | CP.PCM.PN ---
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 Renal function stable continue oral bicarbonate dose of ananesp 04/11/17. consider PRBC transfusion encourage oral fluid intake for hypernatremia, agree with decreased iv fluids monitor lytes General Appearance: Comfortable, in no acute respiratory distress, co-operative . thin built. ill appearing Vitals reviewed and noted Head; Atraumatic, normocephalic ENT: no ulcers EYES: Sclera is anicteric. Neck; supple no thyromegaly Lungs: Normal respiratory rate/effort. Breath sounds bilateral equal and clear Heart: Increased rate. s1s2 normal. No rub or gallop. Extremities: no edema with wound dressed at food. No varicose veins. Hand osteoarthritic deformities +. Neurological: Patient is alert, awake and oriented to person, place and time. No focal deficit. Strength bilateral appropriate and equal Skin: Warm and dry. Normal turgor. No rash. Abdomen: Abdomen is soft. Bowel sounds +. There is no abdominal tenderness Psych: normal insight and normal affect/mood Objective - Vital Signs/Intake and Output Vital Signs (last 24 hours): Temp Pulse Resp BP Pulse Ox 98.3 F 111 H 20 140/74 99 04/14/17 12:00 04/14/17 12:00 04/14/17 12:00 04/14/17 12:00 04/14/17 06:00 Intake and Output: 04/14/17 04/14/17 06:59 18:59 Intake Total 480 120 Output Total 200 Balance 480 -80 - Medications Medications: Current Medications Aspirin (Ecotrin) 81 mg PO DAILY [facility] Last Admin: 04/14/17 09:16 Dose: 81 mg Cyanocobalamin (Vitamin B12 1000 Mcg Tab) 500 mcg PO DAILY [facility] Last Admin: 04/14/17 09:17 Dose: 500 mcg Ferrous Sulfate (Feosol) 324 mg PO TID [facility] Last Admin: 04/14/17 14:14 Dose: 324 mg Heparin Sodium (Porcine) (Heparin) 5,000 units SC Q8 [facility] PRN Reason: Protocol Last Admin: 04/14/17 14:15 Dose: 5,000 units Home Med (Home Med) 1 unit PO DAILY@1200 [facility] Last Admin: 04/14/17 12:12 Dose: 1 unit Linezolid (Zyvox 600mg/300ml D5w) 600 mg in 300 mls @ 200 mls/hr IVPB Q12 [facility] PRN Reason: Protocol Stop: 04/20/17 10:42 Last Admin: 04/14/17 09:18 Dose: 200 mls/hr Sodium Chloride (Sodium Chloride 0.45%) 1,000 mls @ 75 mls/hr IV .[id number] [facility] Last Admin: 04/14/17 12:20 Dose: 75 mls/hr Insulin Human Regular (Humulin R Low) 0 units SC ACHS [facility] PRN Reason: Protocol Last Admin: 04/14/17 12:09 Dose: 3 units Megestrol Acetate (Megace) 40 mg PO DAILY [facility] Last Admin: 04/14/17 09:16 Dose: 40 mg Metoprolol Succinate (Toprol Xl) 25 mg PO DAILY [facility] Last Admin: 04/14/17 09:17 Dose: 25 mg Multivitamins (Thera Tab) 1 tab PO DAILY [facility] Last Admin: 04/14/17 09:16 Dose: 1 tab Mupirocin (Bactroban Ointment) 0 gm TOP BID [facility] Last Admin: 04/14/17 09:30 Dose: 1 unit Ondansetron HCl (Zofran Inj) 4 mg IVP Q4H [facility] PRN Reason: Nausea/Vomiting Last Admin: 04/14/17 12:11 Dose: 4 mg Pantoprazole Sodium (Protonix Ec Tab) 40 mg PO DAILY [facility] Last Admin: 04/14/17 09:16 Dose: 40 mg Sodium Bicarbonate (Sodium Bicarbonate Tab) 1,300 mg PO QID [facility] Last Admin: 04/14/17 14:14 Dose: 1,300 mg - Labs Labs: 04/14/17 07:30 04/14/17 07:30 PT 14.7 SECONDS (9.4-12.5) H 04/10/17 16:05 INR 1.28 (0.93-1.08) H 04/10/17 16:05 APTT 33.0 Seconds (25.1-36.5) 04/10/17 16:05
--- NOTE | 2017-04-14 23:39 | PN ---
DATE: 04/14/2017 SUBJECTIVE: The patient is in bed, in no acute distress. PHYSICAL EXAMINATION: VITAL SIGNS: Temperature is 98, blood pressure is 140/70, respiratory rate is 20, heart rate of 111. HEENT: Unremarkable. NECK: Supple. LUNGS: Decreased breath sounds. HEART: Normal S1 and S2. ABDOMEN: Soft, nontender. LABORATORY DATA: Reveals white count of 4.8, hemoglobin of 11, platelets of 261. Chemistry reveals BUN of 14, creatinine of 1.9. LFTs are elevated. Alkaline phosphatase is elevated. Urinalysis is noted. Immunology is noted. Serology is noted. Microbiology reveals right foot with beta-hemolytic strep. Blood cultures, no growth. Urine cultures are no growth. Stool for C. diff antigen and toxin are both negative. ASSESSMENT AND PLAN: She is a 61 year-old female with severe sepsis due to the right foot cellulitis with group B streptococcus and cellulitis with chronic osteomyelitis on Zyvox and meropenem. The patient has an MRI of the foot on , suspicious for osteomyelitis and review of orders. The patient is on Zyvox, will switched to p.o. and we will follow closely with you. Will need 4 weeks of p.o. Zyvox due to MULTIPLE ALLERGIES INCLUDING CLINDAMYCIN, CEFTRIAXONE, PENICILLIN, SULFAMETHOXAZOLE AND TRIMETHOPRIM ALLERGY. Carroll Castellano MD
[2017-04-15] MEDS: Sodium Chloride 0.45% 1,000 ML IV SCH (06:00)
[2017-04-15 08:23] LABS: BASO # 0.01 K/mm3 (0.0-2.0); BASO % 0.2 % (0.0-3.0); EOS # 0.2 (0.0-0.7); EOS % 3.8 % (1.5-5.0); GRAN # 3.22 (1.4-6.5); GRAN % 64.6 % (50.0-68.0); HEMOGLOBIN 11.4 g/dL (12.0-16.0); LYMPH # 1.1 (1.2-3.4); LYMPH % 21.8 % (22.0-35.0); MEAN CELL VOLUME 91.4 fl (80.0-105.0); MEAN CORPUSCULAR HEMOGLOBIN 28.9 pg (25.0-35.0); MEAN CORPUSCULAR HGB CONC 31.7 g/dl (31.0-37.0); MEAN PLATELET VOLUME 9.6 fl (7.0-11.0); MONO # 0.5 (0.1-0.6); MONO % 9.6 % (1.0-6.0); RBC 3.94 10^6/uL (3.5-6.1); RED CELL DISTRIBUTION WIDTH 15.3 % (11.5-14.5)
[2017-04-15] MEDS: Insulin Reg-LOW-Coverage SC SCH ×4 (08:40→22:31)
[2017-04-15 08:58] LABS: ALBUMIN 3.4 g/dL (3.0-4.8); CALCIUM 9.5 mg/dL (8.4-10.5)
[2017-04-15] MEDS: Metoprolol Succinate 25 mg XL Tab PO SCH (09:35)
[2017-04-15] MEDS: Pantoprazole 40 mg EC Tab PO SCH (09:35)
[2017-04-15] MEDS: Multivitamin Therapeutic Tab PO SCH (09:39)
[2017-04-15] MEDS ORDERED: DAPTOmycin 500 mg Inj (Cubicin) IV SCH ×2 (12:00→18:00)
[2017-04-15] MEDS: VELTASSA 8.4 GM PO SCH (12:28)
--- NOTE | 2017-04-15 13:07 | CP.PCM.PN ---
<Asif Newell - Last Filed: 04/15/17 12:54> Subjective - Date & Time of Evaluation Date of Evaluation: 04/15/17 Time of Evaluation: 07:30 - Subjective Subjective: Asif Newell DO PGY1 - IM Progress Note Patient seen and examined at bedside. No acute events overnight. Patient reports rash on her face, arms, and legs, as well as several blisters that formed since yesterday. She denies itch, burning, pain, bleeding, fever, chills. Patient again reports diarrhea yesterday afternoon. Patient reports that she takes loperamide at home. She still has some pain in her legs, though feels slightly better as she was able to sit up in the bedside chair. Denies any chest pain, shortness of breath, abdominal pain, nausea, vomiting. Objective - Vital Signs/Intake and Output Vital Signs (last 24 hours): Temp Pulse Resp BP Pulse Ox 99.0 F 104 H 18 139/57 L 99 04/15/17 05:41 04/15/17 05:41 04/15/17 05:41 04/15/17 05:41 04/15/17 05:41 Intake and Output: 04/15/17 04/15/17 06:59 18:59 Intake Total 1020 Output Total 300 Balance 720 - Medications Medications: Current Medications Aspirin (Ecotrin) 81 mg PO DAILY [facility] Last Admin: 04/15/17 09:41 Dose: 81 mg Cyanocobalamin (Vitamin B12 1000 Mcg Tab) 500 mcg PO DAILY [facility] Last Admin: 04/15/17 09:40 Dose: 500 mcg Ferrous Sulfate (Feosol) 324 mg PO TID [facility] Last Admin: 04/15/17 09:35 Dose: 324 mg Folic Acid (Folic Acid) 1 mg PO DAILY [facility] Last Admin: 04/15/17 09:35 Dose: 1 mg Heparin Sodium (Porcine) (Heparin) 5,000 units SC Q8 [facility] PRN Reason: Protocol Last Admin: 04/15/17 06:33 Dose: 5,000 units Home Med (Home Med) 1 unit PO DAILY@1200 [facility] Last Admin: 04/15/17 12:28 Dose: 1 unit Sodium Chloride (Sodium Chloride 0.45%) 1,000 mls @ 75 mls/hr IV .[id number] [facility] Last Admin: 04/15/17 06:00 Dose: Not Given Daptomycin 260 mg/ Sodium (Chloride) 100 mls @ 200 mls/hr IV Q24H [facility] Stop: 04/15/17 18:29 Insulin Human Regular (Humulin R Low) 0 units SC ACHS [facility] PRN Reason: Protocol Last Admin: 04/15/17 12:28 Dose: 3 units Loperamide HCl (Imodium) 2 mg PO BID [facility] Last Admin: 04/15/17 12:28 Dose: 2 mg Megestrol Acetate (Megace) 40 mg PO DAILY [facility] Last Admin: 04/15/17 09:44 Dose: 40 mg Metoprolol Succinate (Toprol Xl) 25 mg PO DAILY [facility] Last Admin: 04/15/17 09:35 Dose: 25 mg Multivitamins (Thera Tab) 1 tab PO DAILY [facility] Last Admin: 04/15/17 09:39 Dose: 1 tab Multivitamins/Minerals (Therapeutic-M Tab) 1 tab PO 0800 [facility] Mupirocin (Bactroban Ointment) 0 gm TOP BID [facility] Last Admin: 04/15/17 09:41 Dose: 1 unit Ondansetron HCl (Zofran Inj) 4 mg IVP Q4H PRN PRN Reason: Nausea/Vomiting Last Admin: 04/14/17 12:11 Dose: 4 mg Pantoprazole Sodium (Protonix Ec Tab) 40 mg PO DAILY [facility] Last Admin: 04/15/17 09:35 Dose: 40 mg Sodium Bicarbonate (Sodium Bicarbonate Tab) 1,300 mg PO QID [facility] Last Admin: 04/15/17 09:36 Dose: 1,300 mg Zinc Sulfate (Zinc Sulfate 220 Mg Cap) 220 mg PO DAILY [facility] Last Admin: 04/15/17 09:35 Dose: 220 mg - Labs Labs: 04/15/17 07:45 04/15/17 07:45 PT 14.7 SECONDS (9.4-12.5) H 04/10/17 16:05 INR 1.28 (0.93-1.08) H 04/10/17 16:05 APTT 33.0 Seconds (25.1-36.5) 04/10/17 16:05 - Constitutional Appears: Non-toxic, No Acute Distress, Chronically Ill - Head Exam Head Exam: ATRAUMATIC, NORMOCEPHALIC - Eye Exam Eye Exam: EOMI, Normal appearance, PERRL - ENT Exam ENT Exam: Mucous Membranes Moist - Neck Exam Neck Exam: Normal Inspection - Respiratory Exam Respiratory Exam: Clear to Ausculation Bilateral, NORMAL BREATHING PATTERN - Cardiovascular Exam Cardiovascular Exam: Tachycardia, REGULAR RHYTHM, +S1, +S2 - GI/Abdominal Exam GI & Abdominal Exam: Soft, Normal Bowel Sounds. absent: Tenderness - Extremities Exam Extremities Exam: absent: Calf Tenderness, Pedal Edema Additional comments: Right foot with dressing in place, some drainage seeping through dressing over toes Left foot with superficial ulceration on lateral malleolus - Neurological Exam Neurological Exam: Alert, Awake, Oriented x3 - Psychiatric Exam Psychiatric exam: Normal Affect, Normal Mood - Skin Skin Exam: Dry, Intact Additional comments: Erythematous rash, blanchable, without induration, tenderness or edema, over ventral aspects of bilateral forearms, anterior thighs, and face and neck. No excoriations 4x3cm soft bulla with clear fluid, not draining on anterior aspect of left thigh 1x2cm of the same, on ventral aspect of right forearm Assessment and Plan - Assessment and Plan (Free Text) Assessment: 61F with PMH of Diabetes mellitus type 2, anemia, peripheral arterial disease, GERD, osteomyelitis, esophageal stenosis, hypertension, chronic kidney disease, CAD, and arthritis who presents to the ED from the wound care clinic with Dr. Raymond for osteomyelitis of the right foot Plan: Osteomyelitis R 2nd metatarsal -Switched Zyvox to Daptomycin 6mg/kg Q24H, as below -Continue IVF -Wound culture shows Group B Beta Hemolytic Strep -Per podiatry and vascular surgery, no surgical intervention at this time -PT Eval/Treat for gait training and weakness; partial weight bearing -Vascular Surgery consulted - Dr. Najera -ID consulted - Dr. Nair -Podiatry consulted - Dr. Mattson Rash - Patient had rash on right forearm for the past 3 days, presumed 2/2 contact with tape, bands, etc - Rash now spread to both arms, legs, face, and neck - Possibly 2/2 Zyvox administration - Ordered one time dose of benadryl; will monitor response - Discussed with ID: discontinue Zyvox and switch to Daptomycin Anemia -H&H stable -Continue to monitor FREDY -Likely prerenal, considering septic state; improving, nearly back to baseline -Urine studies pending -Continue IVF hydration and PO hydration -Nephrology consulted (Dr. Reyes), recs appreciated Hypernatremia -Resolved, but patient continues to have multiple causes of hypoosmotic fluid losses -Continue hypoosmotic IVF - 1/2 NS @75cc/hr -Encourage PO water intake Elevated LFTs -Trending up; Continue to monitor -Viral hep panel negative; Abd US showed increased echogenicity, likely fatty liver Diabetes mellitus type 2 -low dose sliding scale -Consistent carb diet -Fingersticks ACHS CAD -Continue ASA 81mg po daily GI/DVT prophylaxis -Protonix -Heparin Patient seen, discussed, and reviewed with attending Dr. Grover <Idalia Grover - Last Filed: 04/23/17 18:15> Objective - Vital Signs/Intake and Output Vital Signs (last 24 hours): Temp Pulse Resp BP Pulse Ox 97.8 F 83 18 132/56 L 98 04/23/17 07:42 04/23/17 10:55 04/23/17 07:42 04/23/17 10:55 04/23/17 07:42 Intake and Output: 04/23/17 04/23/17 06:59 18:59 Intake Total 360 Output Total 1000 Balance -640 - Medications Medications: Current Medications Acetaminophen (Tylenol 325mg Tab) 650 mg PO Q6H PRN PRN Reason: Pain, Mild (1-3) Aspirin (Ecotrin) 81 mg PO DAILY [facility] Last Admin: 04/23/17 10:55 Dose: 81 mg Benzonatate (Tessalon Perles) 100 mg PO TID PRN PRN Reason: cough Last Admin: 04/22/17 21:27 Dose: 100 mg Cyanocobalamin (Vitamin B12 1000 Mcg Tab) 500 mcg PO DAILY [facility] Last Admin: 04/23/17 10:55 Dose: 500 mcg Ferrous Sulfate (Feosol) 324 mg PO TID [facility] Last Admin: 04/23/17 14:36 Dose: 324 mg Folic Acid (Folic Acid) 1 mg PO DAILY [facility] Last Admin: 04/23/17 10:55 Dose: 1 mg Home Med (Home Med) 1 unit PO DAILY@1200 [facility] Last Admin: 04/23/17 12:43 Dose: 1 unit Linezolid (Zyvox 600mg/300ml D5w) 600 mg in 300 mls @ 200 mls/hr IVPB Q12 [facility] PRN Reason: Protocol Stop: 04/25/17 10:01 Last Admin: 04/23/17 10:54 Dose: 200 mls/hr Insulin Human Regular (Humulin R Low) 0 units SC ACHS [facility] PRN Reason: Protocol Last Admin: 04/23/17 17:04 Dose: 3 units Loperamide HCl (Imodium) 2 mg PO BID [facility] Last Admin: 04/23/17 10:55 Dose: 2 mg Megestrol Acetate (Megace) 40 mg PO DAILY [facility] Last Admin: 04/23/17 10:55 Dose: 40 mg Metoprolol Succinate (Toprol Xl) 25 mg PO DAILY [facility] Last Admin: 04/23/17 10:55 Dose: 25 mg Multivitamins/Minerals (Therapeutic-M Tab) 1 tab PO 0800 [facility] Last Admin: 04/23/17 08:25 Dose: 1 tab Mupirocin (Bactroban Ointment) 0 gm TOP BID [facility] Last Admin: 04/23/17 12:18 Dose: 1 applic Nystatin (Nystop Topical Powder) 0 gm TOP BID [facility] Last Admin: 04/23/17 12:18 Dose: 1 applic Ondansetron HCl (Zofran Inj) 4 mg IVP Q4H PRN PRN Reason: Nausea/Vomiting Last Admin: 04/19/17 13:40 Dose: 4 mg Pantoprazole Sodium (Protonix Ec Tab) 40 mg PO DAILY [facility] Last Admin: 04/23/17 10:54 Dose: 40 mg Sodium Bicarbonate (Sodium Bicarbonate Tab) 1,300 mg PO QID [facility] Last Admin: 04/23/17 14:36 Dose: 1,300 mg Vitamin A (Vitamin A & D Oint Ud Foilpak) 1 ea TOP Q8 PRN PRN Reason: Moisture Zinc Sulfate (Zinc Sulfate 220 Mg Cap) 220 mg PO DAILY [facility] Last Admin: 04/23/17 10:54 Dose: 220 mg - Labs Labs: 04/23/17 07:50 04/23/17 07:50 PT 13.6 SECONDS (9.4-12.5) H 04/17/17 06:30 INR 1.18 (0.93-1.08) H 04/17/17 06:30 APTT 33.0 Seconds (25.1-36.5) 04/10/17 16:05 Attending/Attestation - Attestation I have personally seen and examined this patient.: Yes I have fully participated in the care of the patient.: Yes I have reviewed all pertinent clinical information, including history, physical exam and plan: Yes Notes (Text): I have seen and examined the patient at bedside. Agree with the above note with the following additions/ exceptions: Briefly this is 61 year old female with history of DM-2, chronic anemia, chronic diarrhea, PAD, GERD, esophageal stenosis, HTN, CKD, CAD and RA who was sent by [facility] for evaluation of osteomyelitis of right second metatarsal. She had severe sepsis secondary to osteomyelitis of right foot. Wound culture is growing beta hemolytic group B. She is afebrile now. Zyvox was stopped todayas she developed a rash. CASSIDY is mildly abnormal. Vascular consult appreciated. She has palpabale pulses. No surgical intervention is planned as per vascular. There was a possible plan for amputation. Will discuss with podiatry. Patient also has hypernatremia and is currently on 1/2 NS. Nephro on board.She has transamitis. Hep panel is negative. CT scan revealed fatty infiltration. Hyperkalemia resolved. She continue to have diarrhea which is chronic. Cdiff is negative.Recommend diarrhea work up as an outpatient. Upon discharge patient will follow up with Dr Chavez. Dr Idalia Grover
--- NOTE | 2017-04-15 13:38 | CP.PCM.PN ---
<SudhakarJosephine - Last Filed: 04/15/17 13:38> Subjective - Date & Time of Evaluation Date of Evaluation: 04/15/17 Time of Evaluation: 13:38 - Subjective Subjective: 61 y/o female seen at bedside regarding right foot ulceration. Patient is AAOx3 and is in NAD. Patient denies any acute overnight events. Pt is tolerating diet well. Denies F/C/N/V/CP/SOB. Has no new pedal complaints at this time. Dressings have remained C/D/I to bilateral lower extremities. Objective - Vital Signs/Intake and Output Vital Signs (last 24 hours): Temp Pulse Resp BP Pulse Ox 99.0 F 104 H 18 139/57 L 99 04/15/17 05:41 04/15/17 05:41 04/15/17 05:41 04/15/17 05:41 04/15/17 05:41 Intake and Output: 04/15/17 04/15/17 06:59 18:59 Intake Total 1020 Output Total 300 Balance 720 - Medications Medications: Current Medications Aspirin (Ecotrin) 81 mg PO DAILY [facility] Last Admin: 04/15/17 09:41 Dose: 81 mg Cyanocobalamin (Vitamin B12 1000 Mcg Tab) 500 mcg PO DAILY [facility] Last Admin: 04/15/17 09:40 Dose: 500 mcg Ferrous Sulfate (Feosol) 324 mg PO TID [facility] Last Admin: 04/15/17 09:35 Dose: 324 mg Folic Acid (Folic Acid) 1 mg PO DAILY [facility] Last Admin: 04/15/17 09:35 Dose: 1 mg Heparin Sodium (Porcine) (Heparin) 5,000 units SC Q8 [facility] PRN Reason: Protocol Last Admin: 04/15/17 06:33 Dose: 5,000 units Home Med (Home Med) 1 unit PO DAILY@1200 [facility] Last Admin: 04/15/17 12:28 Dose: 1 unit Sodium Chloride (Sodium Chloride 0.45%) 1,000 mls @ 75 mls/hr IV .[id number] [facility] Last Admin: 04/15/17 06:00 Dose: Not Given Daptomycin 260 mg/ Sodium (Chloride) 100 mls @ 200 mls/hr IV Q24H [facility] Stop: 04/15/17 18:29 Insulin Human Regular (Humulin R Low) 0 units SC ACHS [facility] PRN Reason: Protocol Last Admin: 04/15/17 12:28 Dose: 3 units Loperamide HCl (Imodium) 2 mg PO BID [facility] Last Admin: 04/15/17 12:28 Dose: 2 mg Megestrol Acetate (Megace) 40 mg PO DAILY [facility] Last Admin: 04/15/17 09:44 Dose: 40 mg Metoprolol Succinate (Toprol Xl) 25 mg PO DAILY [facility] Last Admin: 04/15/17 09:35 Dose: 25 mg Multivitamins (Thera Tab) 1 tab PO DAILY [facility] Last Admin: 04/15/17 09:39 Dose: 1 tab Multivitamins/Minerals (Therapeutic-M Tab) 1 tab PO 0800 [facility] Mupirocin (Bactroban Ointment) 0 gm TOP BID [facility] Last Admin: 04/15/17 09:41 Dose: 1 unit Ondansetron HCl (Zofran Inj) 4 mg IVP Q4H PRN PRN Reason: Nausea/Vomiting Last Admin: 04/14/17 12:11 Dose: 4 mg Pantoprazole Sodium (Protonix Ec Tab) 40 mg PO DAILY [facility] Last Admin: 04/15/17 09:35 Dose: 40 mg Sodium Bicarbonate (Sodium Bicarbonate Tab) 1,300 mg PO QID [facility] Last Admin: 04/15/17 09:36 Dose: 1,300 mg Zinc Sulfate (Zinc Sulfate 220 Mg Cap) 220 mg PO DAILY [facility] Last Admin: 04/15/17 09:35 Dose: 220 mg - Labs Labs: 04/15/17 07:45 04/15/17 07:45 PT 14.7 SECONDS (9.4-12.5) H 04/10/17 16:05 INR 1.28 (0.93-1.08) H 04/10/17 16:05 APTT 33.0 Seconds (25.1-36.5) 04/10/17 16:05 - Constitutional Appears: Well, Non-toxic, No Acute Distress - Extremities Exam Additional comments: Lower extremity focused examination: Vasc: DP/PT pulses palpable 2/4 B/L. Temperature gradient warm to warm. CFT < 3 sec to all digits Derm: Single ulceration noted to right foot 2nd metatarsal head at previous 2nd digit amputaton site. Dorsal ulceration measures approx 1cm x 0.7cm x 0.5cm in depth, (+) probe to 2nd metatarsal bone. At this time, new tissue formation is evident to wound bed with mixed fibrogranular base. Previous plantar ulceration connecting to above mentioned dorsal ulceration now appears to be closing with hyperkeratotic tissue overlying. Wound borders are negative for hyperkeratosis or maceration. Kerrie wound erythema noted to both wounds. Additional superficial ulceration noted to left lateral malleolus with mixed fibrogranular base; periwound negative for erythema; no malodor, drainage, purulence, tunneling or undermining Neuro: Protective sensation is grossly intact B/L Ortho: Mild tenderness to palpation of right foot interspace ulceration. Left ankle ulceration mildly tender - Neurological Exam Neurological Exam: Alert, Awake, Oriented x3 - Psychiatric Exam Psychiatric exam: Normal Affect, Normal Mood Assessment and Plan - Assessment and Plan (Free Text) Assessment: 61 y/o female with 1) right foot ulceration with clinical osteomyelitis, (+) probe to bone 2) left ankle ulceration, stable Plan: Pt seen and evaluated at bedside Discussed with attending Dr. Mattson Labs and vitals reviewed- afebrile, WBC 5.0 Wound culture (+) for B hemolytic strep group B Bilateral ulcerations cleansed with saline Right foot ulceration dressed with hydrogel and DSD Left ankle ulceration dressed with bactroban and Optifoam Continue Multipodus boots while in bed Arterial duplex scan - mildly abnormal CASSIDY MRI of the R foot: marrow edema of 2nd metatarsal consistent with OM; strong clinical suspicion of OM Podiatry holding off on surgical intervention at this time Continue IV abx as per ID - Zyvox, Merrem Pt is allowed PWB to right heel - has own [place] wound shoes which may be used for ambulation Podiatry will continue to follow patient while in house <Leatha Mattson - Last Filed: 04/23/17 14:08> Objective - Vital Signs/Intake and Output Vital Signs (last 24 hours): Temp Pulse Resp BP Pulse Ox 97.8 F 83 18 132/56 L 98 04/23/17 07:42 04/23/17 10:55 04/23/17 07:42 04/23/17 10:55 04/23/17 07:42 Intake and Output: 04/23/17 04/23/17 06:59 18:59 Intake Total 360 Output Total 1000 Balance -640 - Medications Medications: Current Medications Acetaminophen (Tylenol 325mg Tab) 650 mg PO Q6H PRN PRN Reason: Pain, Mild (1-3) Aspirin (Ecotrin) 81 mg PO DAILY [facility] Last Admin: 04/23/17 10:55 Dose: 81 mg Benzonatate (Tessalon Perles) 100 mg PO TID PRN PRN Reason: cough Last Admin: 04/22/17 21:27 Dose: 100 mg Cyanocobalamin (Vitamin B12 1000 Mcg Tab) 500 mcg PO DAILY [facility] Last Admin: 04/23/17 10:55 Dose: 500 mcg Ferrous Sulfate (Feosol) 324 mg PO TID [facility] Last Admin: 04/23/17 10:54 Dose: 324 mg Folic Acid (Folic Acid) 1 mg PO DAILY [facility] Last Admin: 04/23/17 10:55 Dose: 1 mg Home Med (Home Med) 1 unit PO DAILY@1200 [facility] Last Admin: 04/23/17 12:43 Dose: 1 unit Linezolid (Zyvox 600mg/300ml D5w) 600 mg in 300 mls @ 200 mls/hr IVPB Q12 [facility] PRN Reason: Protocol Stop: 04/25/17 10:01 Last Admin: 04/23/17 10:54 Dose: 200 mls/hr Insulin Human Regular (Humulin R Low) 0 units SC ACHS [facility] PRN Reason: Protocol Last Admin: 04/23/17 12:18 Dose: 2 units Loperamide HCl (Imodium) 2 mg PO BID [facility] Last Admin: 04/23/17 10:55 Dose: 2 mg Megestrol Acetate (Megace) 40 mg PO DAILY [facility] Last Admin: 04/23/17 10:55 Dose: 40 mg Metoprolol Succinate (Toprol Xl) 25 mg PO DAILY [facility] Last Admin: 04/23/17 10:55 Dose: 25 mg Multivitamins/Minerals (Therapeutic-M Tab) 1 tab PO 0800 [facility] Last Admin: 04/23/17 08:25 Dose: 1 tab Mupirocin (Bactroban Ointment) 0 gm TOP BID [facility] Last Admin: 04/23/17 12:18 Dose: 1 applic Nystatin (Nystop Topical Powder) 0 gm TOP BID [facility] Last Admin: 04/23/17 12:18 Dose: 1 applic Ondansetron HCl (Zofran Inj) 4 mg IVP Q4H PRN PRN Reason: Nausea/Vomiting Last Admin: 04/19/17 13:40 Dose: 4 mg Pantoprazole Sodium (Protonix Ec Tab) 40 mg PO DAILY [facility] Last Admin: 04/23/17 10:54 Dose: 40 mg Sodium Bicarbonate (Sodium Bicarbonate Tab) 1,300 mg PO QID [facility] Last Admin: 04/23/17 10:55 Dose: 1,300 mg Vitamin A (Vitamin A & D Oint Ud Foilpak) 1 ea TOP Q8 PRN PRN Reason: Moisture Zinc Sulfate (Zinc Sulfate 220 Mg Cap) 220 mg PO DAILY [facility] Last Admin: 04/23/17 10:54 Dose: 220 mg - Labs Labs: 04/23/17 07:50 04/23/17 07:50 PT 13.6 SECONDS (9.4-12.5) H 04/17/17 06:30 INR 1.18 (0.93-1.08) H 04/17/17 06:30 APTT 33.0 Seconds (25.1-36.5) 04/10/17 16:05 Attending/Attestation - Attestation I have personally seen and examined this patient.: Yes I have fully participated in the care of the patient.: Yes I have reviewed all pertinent clinical information, including history, physical exam and plan: Yes
--- NOTE | 2017-04-15 16:38 | CP.PCM.PN ---
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 Renal function stable continue oral bicarbonate dose of ananesp 04/11/17. consider PRBC transfusion encourage oral fluid intake for hypernatremia,sodium levels improved monitor lytes General Appearance: Comfortable, in no acute respiratory distress, co-operative . thin built Head; Atraumatic, normocephalic ENT: no ulcers EYES: Sclera is anicteric. Neck; supple no thyromegaly Lungs: Normal respiratory rate/effort. Breath sounds bilateral equal and clear Heart: Increased rate. s1s2 normal. No rub or gallop. Extremities: no edema with wound dressed at food. No varicose veins. Hand osteoarthritic deformities +. Neurological: Patient is alert, awake and oriented to person, place and time. No focal deficit. Strength bilateral appropriate and equal Skin: Warm and dry Abdomen: Abdomen is soft. Bowel sounds +. There is no abdominal tenderness Psych: normal insight and normal affect/mood Objective - Vital Signs/Intake and Output Vital Signs (last 24 hours): Temp Pulse Resp BP Pulse Ox 99.0 F 104 H 18 139/57 L 99 04/15/17 05:41 04/15/17 05:41 04/15/17 05:41 04/15/17 05:41 04/15/17 05:41 Intake and Output: 04/15/17 04/15/17 06:59 18:59 Intake Total 1020 Output Total 300 Balance 720 - Medications Medications: Current Medications Aspirin (Ecotrin) 81 mg PO DAILY [facility] Last Admin: 04/15/17 09:41 Dose: 81 mg Cyanocobalamin (Vitamin B12 1000 Mcg Tab) 500 mcg PO DAILY [facility] Last Admin: 04/15/17 09:40 Dose: 500 mcg Ferrous Sulfate (Feosol) 324 mg PO TID [facility] Last Admin: 04/15/17 15:50 Dose: 324 mg Folic Acid (Folic Acid) 1 mg PO DAILY [facility] Last Admin: 04/15/17 09:35 Dose: 1 mg Heparin Sodium (Porcine) (Heparin) 5,000 units SC Q8 [facility] PRN Reason: Protocol Last Admin: 04/15/17 15:50 Dose: 5,000 units Home Med (Home Med) 1 unit PO DAILY@1200 [facility] Last Admin: 04/15/17 12:28 Dose: 1 unit Sodium Chloride (Sodium Chloride 0.45%) 1,000 mls @ 75 mls/hr IV .[id number] [facility] Last Admin: 04/15/17 06:00 Dose: Not Given Daptomycin 260 mg/ Sodium (Chloride) 100 mls @ 200 mls/hr IV Q24H [facility] Stop: 04/15/17 18:29 Insulin Human Regular (Humulin R Low) 0 units SC ACHS [facility] PRN Reason: Protocol Last Admin: 04/15/17 12:28 Dose: 3 units Loperamide HCl (Imodium) 2 mg PO BID [facility] Last Admin: 04/15/17 12:28 Dose: 2 mg Megestrol Acetate (Megace) 40 mg PO DAILY [facility] Last Admin: 04/15/17 09:44 Dose: 40 mg Metoprolol Succinate (Toprol Xl) 25 mg PO DAILY [facility] Last Admin: 04/15/17 09:35 Dose: 25 mg Multivitamins (Thera Tab) 1 tab PO DAILY [facility] Last Admin: 04/15/17 09:39 Dose: 1 tab Multivitamins/Minerals (Therapeutic-M Tab) 1 tab PO 0800 [facility] Mupirocin (Bactroban Ointment) 0 gm TOP BID [facility] Last Admin: 04/15/17 09:41 Dose: 1 unit Ondansetron HCl (Zofran Inj) 4 mg IVP Q4H PRN PRN Reason: Nausea/Vomiting Last Admin: 04/14/17 12:11 Dose: 4 mg Pantoprazole Sodium (Protonix Ec Tab) 40 mg PO DAILY [facility] Last Admin: 04/15/17 09:35 Dose: 40 mg Sodium Bicarbonate (Sodium Bicarbonate Tab) 1,300 mg PO QID [facility] Last Admin: 04/15/17 15:51 Dose: 1,300 mg Zinc Sulfate (Zinc Sulfate 220 Mg Cap) 220 mg PO DAILY [facility] Last Admin: 04/15/17 09:35 Dose: 220 mg - Labs Labs: 04/15/17 07:45 04/15/17 07:45 PT 14.7 SECONDS (9.4-12.5) H 04/10/17 16:05 INR 1.28 (0.93-1.08) H 04/10/17 16:05 APTT 33.0 Seconds (25.1-36.5) 04/10/17 16:05
--- NOTE | 2017-04-15 23:26 | PN ---
DATE: 04/15/2017 SUBJECTIVE: The patient seen in room 376, bed 1. No fever, no chills. No nausea. PHYSICAL EXAMINATION: VITAL SIGNS: Temperature is 99, blood pressure is 130/50, respiratory rate of 18, heart rate of 104. HEENT: Unremarkable. NECK: Supple. LUNGS: Decreased breath sounds. HEART: Normal S1 and S2. ABDOMEN: Soft, nontender. LABORATORY EXAMINATION: Reveals the patient has white count of 5000, hemoglobin of 11, platelets of 230. Chemistry reveals BUN of 16, creatinine of 1.4. LFTs are elevated. Alkaline phosphatase is elevated. Urinalysis is noted. Immunology is noted. Serology hepatitis profile is negative. Microbiology reveals group B strep. Later on today, I was called regarding a questionable rash from the [facility] by Dr. Hardy. ASSESSMENT AND PLAN: This is a 61-year-old female who was seen early this morning in room 376 with severe sepsis with a right foot cellulitis with a group B strep cellulitis with chronic osteomyelitis, and patient was on meropenem; however, now on Zyvox. The patient had a questionable rash. We will switch the daptomycin. Will need four weeks of daptomycin. Check on creatine phosphokinase. The patient has MULTIPLE ALLERGIES INCLUDING CEFTRIAXONE, CLINDAMYCIN, PENICILLIN, SULFAMETHOXAZOLE AND TRIMETHOPRIM, and we will follow closely with you. Carroll Castellano MD
[2017-04-16 03:37] LABS: ALBUMIN (PEP) 3.3 g/dL (3.8-4.8); ALPHA-1-GLOBULIN (PEP) 0.7 g/dL (0.2-0.3)
[2017-04-16 07:00] LABS: BASO # 0.03 K/mm3 (0.0-2.0); BASO % 0.8 % (0.0-3.0); EOS # 0.1 (0.0-0.7); EOS % 1.6 % (1.5-5.0); GRAN # 2.15 (1.4-6.5); GRAN % 58.1 % (50.0-68.0); HEMOGLOBIN 11.5 g/dL (12.0-16.0); LYMPH % 26.8 % (22.0-35.0); MEAN CELL VOLUME 91.5 fl (80.0-105.0); MEAN CORPUSCULAR HEMOGLOBIN 28.9 pg (25.0-35.0); MEAN CORPUSCULAR HGB CONC 31.6 g/dl (31.0-37.0); MEAN PLATELET VOLUME 9.8 fl (7.0-11.0); MONO # 0.5 (0.1-0.6); MONO % 12.7 % (1.0-6.0); RBC 3.98 10^6/uL (3.5-6.1); RED CELL DISTRIBUTION WIDTH 14.9 % (11.5-14.5); WHITE BLOOD COUNT 3.7 10^3/ul (4.5-11.0)
[2017-04-16 07:28] LABS: ALB/GLOB RATIO 1.1 (1.1-1.8); ALBUMIN 3.3 g/dL (3.0-4.8); CALCIUM 9.2 mg/dL (8.4-10.5)
[2017-04-16] MEDS: Sodium Chloride 0.45% 1,000 ML IV SCH ×3 (07:46→21:07)
[2017-04-16] MEDS ORDERED: Potassium Chloride 40 mEq/30 ml LIQ UD PO ONE (08:39)
[2017-04-16] MEDS: Insulin Reg-LOW-Coverage SC SCH ×4 (09:07→21:55)
[2017-04-16] MEDS: Multivitamin Therapeutic Tab PO SCH (09:17)
[2017-04-16] MEDS: Multivitamin With Minerals Tab PO SCH (09:18)
[2017-04-16] MEDS: Pantoprazole 40 mg EC Tab PO SCH (09:18)
[2017-04-16] MEDS: Metoprolol Succinate 25 mg XL Tab PO SCH (09:18)
--- NOTE | 2017-04-16 10:32 | CP.PCM.PN ---
<Asif Newell - Last Filed: 04/16/17 13:14> Subjective - Date & Time of Evaluation Date of Evaluation: 04/16/17 Time of Evaluation: 07:30 - Subjective Subjective: Asif Newell DO PGY1 - IM Progress Note Patient seen and examined at bedside. Overnight, patient had fever to 101.9, resolved with use of cooling blanket. Patient denies subjective fever, does admit to chills. Denies any chest pain, shortness of breath, or palpitations. She reports that her diarrhea started approximately one year ago, and has been getting progressively worse. She takes immodium at home for her diarrhea, which helps slightly. She has never recognized any trends, and cannot associate it with particular foods or triggers. She had colonoscopy 3-[address] Monte, results unknown. 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 She continues to report diarrhea now, worse since admission to the hospital. Objective - Vital Signs/Intake and Output Vital Signs (last 24 hours): Temp Pulse Resp BP Pulse Ox 98.0 F 85 20 134/52 L 99 04/16/17 05:43 04/16/17 09:18 04/16/17 05:43 04/16/17 09:18 04/16/17 05:43 Intake and Output: 04/16/17 04/16/17 06:59 18:59 Intake Total 2040 Output Total 300 Balance 1740 - Medications Medications: Current Medications Aspirin (Ecotrin) 81 mg PO DAILY [facility] Last Admin: 04/16/17 09:18 Dose: 81 mg Cyanocobalamin (Vitamin B12 1000 Mcg Tab) 500 mcg PO DAILY [facility] Last Admin: 04/16/17 09:18 Dose: 500 mcg Ferrous Sulfate (Feosol) 324 mg PO TID [facility] Last Admin: 04/16/17 09:18 Dose: 324 mg Folic Acid (Folic Acid) 1 mg PO DAILY [facility] Last Admin: 04/16/17 09:17 Dose: 1 mg Heparin Sodium (Porcine) (Heparin) 5,000 units SC Q8 [facility] PRN Reason: Protocol Last Admin: 04/16/17 05:27 Dose: 5,000 units Home Med (Home Med) 1 unit PO DAILY@1200 [facility] Last Admin: 04/15/17 12:28 Dose: 1 unit Sodium Chloride (Sodium Chloride 0.45%) 1,000 mls @ 75 mls/hr IV .[id number] [facility] Last Admin: 04/16/17 07:46 Dose: 75 mls/hr Insulin Human Regular (Humulin R Low) 0 units SC ACHS [facility] PRN Reason: Protocol Last Admin: 04/16/17 09:07 Dose: Not Given Loperamide HCl (Imodium) 2 mg PO BID [facility] Last Admin: 04/16/17 09:17 Dose: 2 mg Megestrol Acetate (Megace) 40 mg PO DAILY [facility] Last Admin: 04/16/17 09:17 Dose: 40 mg Metoprolol Succinate (Toprol Xl) 25 mg PO DAILY [facility] Last Admin: 04/16/17 09:18 Dose: 25 mg Multivitamins (Thera Tab) 1 tab PO DAILY [facility] Last Admin: 04/16/17 09:17 Dose: 1 tab Multivitamins/Minerals (Therapeutic-M Tab) 1 tab PO 0800 [facility] Last Admin: 04/16/17 09:18 Dose: 1 tab Mupirocin (Bactroban Ointment) 0 gm TOP BID [facility] Last Admin: 04/15/17 17:16 Dose: 1 unit Ondansetron HCl (Zofran Inj) 4 mg IVP Q4H PRN PRN Reason: Nausea/Vomiting Last Admin: 04/14/17 12:11 Dose: 4 mg Pantoprazole Sodium (Protonix Ec Tab) 40 mg PO DAILY [facility] Last Admin: 04/16/17 09:18 Dose: 40 mg Sodium Bicarbonate (Sodium Bicarbonate Tab) 1,300 mg PO QID [facility] Last Admin: 04/16/17 09:17 Dose: 1,300 mg Zinc Sulfate (Zinc Sulfate 220 Mg Cap) 220 mg PO DAILY [facility] Last Admin: 04/16/17 09:17 Dose: 220 mg - Labs Labs: 04/16/17 06:00 04/16/17 06:00 PT 14.7 SECONDS (9.4-12.5) H 04/10/17 16:05 INR 1.28 (0.93-1.08) H 04/10/17 16:05 APTT 33.0 Seconds (25.1-36.5) 04/10/17 16:05 - Constitutional Appears: Non-toxic, No Acute Distress, Chronically Ill - Head Exam Head Exam: ATRAUMATIC, NORMOCEPHALIC - Eye Exam Eye Exam: EOMI, Normal appearance, PERRL - ENT Exam ENT Exam: Mucous Membranes Dry - Neck Exam Neck Exam: Normal Inspection - Respiratory Exam Respiratory Exam: Clear to Ausculation Bilateral, NORMAL BREATHING PATTERN - Cardiovascular Exam Cardiovascular Exam: RRR, +S1, +S2 - GI/Abdominal Exam GI & Abdominal Exam: Soft, Normal Bowel Sounds. absent: Rigid, Tenderness - Extremities Exam Extremities Exam: absent: Calf Tenderness, Pedal Edema Additional comments: bilateral feet with dressings in place. Some small amount of drainage noted over toes of right foot - Neurological Exam Neurological Exam: Alert, Awake, Oriented x3 - Psychiatric Exam Psychiatric exam: Normal Affect, Normal Mood - Skin Skin Exam: Dry, Intact Additional comments: Rash improved since yesterday. Still with mild erythema over ventral bilateral arms, face, neck Bullae unchanged Assessment and Plan - Assessment and Plan (Free Text) Assessment: 61F with PMH of Diabetes mellitus type 2, anemia, peripheral arterial disease, GERD, osteomyelitis, esophageal stenosis, hypertension, chronic kidney disease, CAD, and arthritis who presents to the ED from the wound care clinic with Dr. Raymond for osteomyelitis of the right foot Plan: Osteomyelitis R 2nd metatarsal; initially presented with Sepsis -Continue Daptomycin 6mg/kg Q24H -Continue IVF -Wound culture shows Group B Beta Hemolytic Strep -Patient is again febrile overnight; ordered repeat blood cultures; instructed nurse to collect fluid from blisters for culture -Per podiatry and vascular surgery, no surgical intervention at this time -PT Eval/Treat for gait training and weakness; partial weight bearing -Vascular Surgery consulted - Dr. Najera -ID consulted - Dr. Nair -Podiatry consulted - Dr. Mattson Rash - Rash slightly improved on both arms, legs, face, and neck; bullae unchanged - Possibly 2/2 Zyvox administration vs hematogenous infection vs bacterial lysis - Repeat blood cultures and wound culture, as abnove - Discussed with ID: discontinue Zyvox and switch to Daptomycin Chronic diarrhea - Patient reports one year of chronic watery diarrhea, not associated with any partricular triggers or pattern related to diet - C diff negative - Continue home Immodium - Stool workup pending, per GI - Requested GI consult; appreciate recs Anemia -H&H stable -Continue to monitor FREDY -Likely prerenal, considering septic state; improving, nearly back to baseline -Urine studies pending -Continue IVF hydration and PO hydration -Nephrology consulted (Dr. Reyes), recs appreciated Hypernatremia -Resolved, but patient continues to have multiple causes of hypoosmotic fluid losses -Continue hypoosmotic IVF - 1/2 NS @75cc/hr -Encourage PO water intake Elevated LFTs -Trending up; Continue to monitor -Autoimmune workup pending; per GI -Viral hep panel negative; Abd US and CT A/P showed increased echogenicity, likely fatty liver -GI on consult; appreciate recs Diabetes mellitus type 2 -low dose sliding scale -Consistent carb diet -Fingersticks ACHS CAD -Continue ASA 81mg po daily GI/DVT prophylaxis -Protonix -Heparin Patient seen, discussed, and reviewed with attending Dr. Grover <Jaun Rodríguez - Last Filed: 04/16/17 17:38> Objective - Vital Signs/Intake and Output Vital Signs (last 24 hours): Temp Pulse Resp BP Pulse Ox 102.0 F H 95 H 20 145/65 99 04/16/17 16:12 04/16/17 12:00 04/16/17 12:00 04/16/17 12:00 04/16/17 05:43 Intake and Output: 04/16/17 04/16/17 06:59 18:59 Intake Total 2040 740 Output Total 300 Balance 1740 740 - Medications Medications: Current Medications Aspirin (Ecotrin) 81 mg PO DAILY [facility] Last Admin: 04/16/17 09:18 Dose: 81 mg Cyanocobalamin (Vitamin B12 1000 Mcg Tab) 500 mcg PO DAILY [facility] Last Admin: 04/16/17 09:18 Dose: 500 mcg Ferrous Sulfate (Feosol) 324 mg PO TID [facility] Last Admin: 04/16/17 14:09 Dose: 324 mg Folic Acid (Folic Acid) 1 mg PO DAILY [facility] Last Admin: 04/16/17 09:17 Dose: 1 mg Heparin Sodium (Porcine) (Heparin) 5,000 units SC Q8 [facility] PRN Reason: Protocol Last Admin: 04/16/17 14:09 Dose: 5,000 units Home Med (Home Med) 1 unit PO DAILY@1200 [facility] Last Admin: 04/16/17 13:05 Dose: 1 unit Sodium Chloride (Sodium Chloride 0.45%) 1,000 mls @ 75 mls/hr IV .[id number] [facility] Last Admin: 04/16/17 07:46 Dose: 75 mls/hr Daptomycin 260 mg/ Sodium (Chloride) 100 mls @ 200 mls/hr IV Q24H [facility] Stop: 05/14/17 11:16 Last Admin: 04/16/17 14:19 Dose: Not Given Insulin Human Regular (Humulin R Low) 0 units SC ACHS [facility] PRN Reason: Protocol Last Admin: 04/16/17 13:04 Dose: 3 units Loperamide HCl (Imodium) 2 mg PO BID [facility] Last Admin: 04/16/17 09:17 Dose: 2 mg Megestrol Acetate (Megace) 40 mg PO DAILY [facility] Last Admin: 04/16/17 09:17 Dose: 40 mg Metoprolol Succinate (Toprol Xl) 25 mg PO DAILY [facility] Last Admin: 04/16/17 09:18 Dose: 25 mg Multivitamins/Minerals (Therapeutic-M Tab) 1 tab PO 0800 [facility] Last Admin: 04/16/17 09:18 Dose: 1 tab Mupirocin (Bactroban Ointment) 0 gm TOP BID [facility] Last Admin: 04/15/17 17:16 Dose: 1 unit Ondansetron HCl (Zofran Inj) 4 mg IVP Q4H PRN PRN Reason: Nausea/Vomiting Last Admin: 04/14/17 12:11 Dose: 4 mg Pantoprazole Sodium (Protonix Ec Tab) 40 mg PO DAILY [facility] Last Admin: 04/16/17 09:18 Dose: 40 mg Sodium Bicarbonate (Sodium Bicarbonate Tab) 1,300 mg PO QID [facility] Last Admin: 04/16/17 14:09 Dose: 1,300 mg Zinc Sulfate (Zinc Sulfate 220 Mg Cap) 220 mg PO DAILY [facility] Last Admin: 04/16/17 09:17 Dose: 220 mg - Labs Labs: 04/16/17 06:00 04/16/17 06:00 PT 14.7 SECONDS (9.4-12.5) H 04/10/17 16:05 INR 1.28 (0.93-1.08) H 04/10/17 16:05 APTT 33.0 Seconds (25.1-36.5) 04/10/17 16:05 Attending/Attestation - Attestation I have personally seen and examined this patient.: Yes I have fully participated in the care of the patient.: Yes I have reviewed all pertinent clinical information, including history, physical exam and plan: Yes Notes (Text): 04/16/17 17:33 Attending note; Patient seen and examined with resident. 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 She had severe sepsis secondary to osteomyelitis of right foot. Wound culture is growing beta hemolytic group B. Currently on IV daptomycin .Zyvox stopped due to rash and elevated LFTs . Elevated LFTs ; patient with previous history of fatty liver and mildly elevated LFTs .GI evaluation appreciated . Patient will get outpatient colonoscopy and further workup for anemia .Hepatitis panel is negative. CT scan revealed fatty infiltration. CASSIDY is mildly abnormal. Vascular consult appreciated. Case discussed with podiatry in detail. We will get vascular surgery evaluation with Dr. Ren Ortiz. Possible amputation after vascular surgery evaluation. hypernatremia and is currently on 1/2 NS. Nephrology evaluation appreciated. Diarrhea is improving. C. difficile is negative. Tolerating diet well. Upon discharge patient will follow up with Dr. Chavez. 04/16/17 17:37
--- NOTE | 2017-04-16 10:37 | CP.PCM.PN ---
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 Renal function stable continue oral bicarbonate dose of ananesp 04/11/17. consider PRBC transfusion \hypernatremia improving dose abx for reduced gfr monitor lytes General Appearance: Comfortable, in no acute respiratory distress, co-operative . thin built Head; Atraumatic, normocephalic ENT: no ulcers EYES: Sclera is anicteric. Neck; supple no thyromegaly Lungs: Normal respiratory rate/effort. Breath sounds bilateral equal and clear Heart: Increased rate. s1s2 normal. No rub or gallop. Extremities: no edema with wound dressed at food. No varicose veins. Hand osteoarthritic deformities +. Neurological: Patient is alert, awake and oriented to person, place and time. No focal deficit. Strength bilateral appropriate and equal Skin: Warm and dry rash+ Abdomen: Abdomen is soft. Bowel sounds +. There is no abdominal tenderness Psych: normal insight and normal affect/mood Objective - Vital Signs/Intake and Output Vital Signs (last 24 hours): Temp Pulse Resp BP Pulse Ox 98.0 F 85 20 134/52 L 99 04/16/17 05:43 04/16/17 09:18 04/16/17 05:43 04/16/17 09:18 04/16/17 05:43 Intake and Output: 04/16/17 04/16/17 06:59 18:59 Intake Total 2040 Output Total 300 Balance 1740 - Medications Medications: Current Medications Aspirin (Ecotrin) 81 mg PO DAILY [facility] Last Admin: 04/16/17 09:18 Dose: 81 mg Cyanocobalamin (Vitamin B12 1000 Mcg Tab) 500 mcg PO DAILY [facility] Last Admin: 04/16/17 09:18 Dose: 500 mcg Ferrous Sulfate (Feosol) 324 mg PO TID [facility] Last Admin: 04/16/17 09:18 Dose: 324 mg Folic Acid (Folic Acid) 1 mg PO DAILY [facility] Last Admin: 04/16/17 09:17 Dose: 1 mg Heparin Sodium (Porcine) (Heparin) 5,000 units SC Q8 [facility] PRN Reason: Protocol Last Admin: 04/16/17 05:27 Dose: 5,000 units Home Med (Home Med) 1 unit PO DAILY@1200 [facility] Last Admin: 04/15/17 12:28 Dose: 1 unit Sodium Chloride (Sodium Chloride 0.45%) 1,000 mls @ 75 mls/hr IV .[id number] [facility] Last Admin: 04/16/17 07:46 Dose: 75 mls/hr Insulin Human Regular (Humulin R Low) 0 units SC ACHS [facility] PRN Reason: Protocol Last Admin: 04/16/17 09:07 Dose: Not Given Loperamide HCl (Imodium) 2 mg PO BID [facility] Last Admin: 04/16/17 09:17 Dose: 2 mg Megestrol Acetate (Megace) 40 mg PO DAILY [facility] Last Admin: 04/16/17 09:17 Dose: 40 mg Metoprolol Succinate (Toprol Xl) 25 mg PO DAILY [facility] Last Admin: 04/16/17 09:18 Dose: 25 mg Multivitamins/Minerals (Therapeutic-M Tab) 1 tab PO 0800 [facility] Last Admin: 04/16/17 09:18 Dose: 1 tab Mupirocin (Bactroban Ointment) 0 gm TOP BID [facility] Last Admin: 04/15/17 17:16 Dose: 1 unit Ondansetron HCl (Zofran Inj) 4 mg IVP Q4H PRN PRN Reason: Nausea/Vomiting Last Admin: 04/14/17 12:11 Dose: 4 mg Pantoprazole Sodium (Protonix Ec Tab) 40 mg PO DAILY [facility] Last Admin: 04/16/17 09:18 Dose: 40 mg Sodium Bicarbonate (Sodium Bicarbonate Tab) 1,300 mg PO QID [facility] Last Admin: 04/16/17 09:17 Dose: 1,300 mg Zinc Sulfate (Zinc Sulfate 220 Mg Cap) 220 mg PO DAILY [facility] Last Admin: 04/16/17 09:17 Dose: 220 mg - Labs Labs: 04/16/17 06:00 04/16/17 06:00 PT 14.7 SECONDS (9.4-12.5) H 04/10/17 16:05 INR 1.28 (0.93-1.08) H 04/10/17 16:05 APTT 33.0 Seconds (25.1-36.5) 04/10/17 16:05
[2017-04-16] MEDS ORDERED: DAPTOmycin 500 mg Inj (Cubicin) IV SCH (11:00)
--- NOTE | 2017-04-16 12:53 | CP.PCM.PN ---
Subjective - Date & Time of Evaluation Date of Evaluation: 04/16/17 Time of Evaluation: 12:30 - Subjective Subjective: Comfortable in bed, no fevers. Developed rash over the weekend. Objective - Vital Signs/Intake and Output Vital Signs (last 24 hours): Temp Pulse Resp BP Pulse Ox 98.0 F 85 20 134/52 L 99 04/16/17 05:43 04/16/17 09:18 04/16/17 05:43 04/16/17 09:18 04/16/17 05:43 Intake and Output: 04/16/17 04/16/17 06:59 18:59 Intake Total 2040 Output Total 300 Balance 1740 - Medications Medications: Current Medications Aspirin (Ecotrin) 81 mg PO DAILY [facility] Last Admin: 04/16/17 09:18 Dose: 81 mg Cyanocobalamin (Vitamin B12 1000 Mcg Tab) 500 mcg PO DAILY [facility] Last Admin: 04/16/17 09:18 Dose: 500 mcg Ferrous Sulfate (Feosol) 324 mg PO TID [facility] Last Admin: 04/16/17 09:18 Dose: 324 mg Folic Acid (Folic Acid) 1 mg PO DAILY [facility] Last Admin: 04/16/17 09:17 Dose: 1 mg Heparin Sodium (Porcine) (Heparin) 5,000 units SC Q8 [facility] PRN Reason: Protocol Last Admin: 04/16/17 05:27 Dose: 5,000 units Home Med (Home Med) 1 unit PO DAILY@1200 [facility] Last Admin: 04/15/17 12:28 Dose: 1 unit Sodium Chloride (Sodium Chloride 0.45%) 1,000 mls @ 75 mls/hr IV .[id number] [facility] Last Admin: 04/16/17 07:46 Dose: 75 mls/hr Insulin Human Regular (Humulin R Low) 0 units SC ACHS [facility] PRN Reason: Protocol Last Admin: 04/16/17 09:07 Dose: Not Given Loperamide HCl (Imodium) 2 mg PO BID [facility] Last Admin: 04/16/17 09:17 Dose: 2 mg Megestrol Acetate (Megace) 40 mg PO DAILY [facility] Last Admin: 04/16/17 09:17 Dose: 40 mg Metoprolol Succinate (Toprol Xl) 25 mg PO DAILY [facility] Last Admin: 04/16/17 09:18 Dose: 25 mg Multivitamins/Minerals (Therapeutic-M Tab) 1 tab PO 0800 [facility] Last Admin: 04/16/17 09:18 Dose: 1 tab Mupirocin (Bactroban Ointment) 0 gm TOP BID [facility] Last Admin: 04/15/17 17:16 Dose: 1 unit Ondansetron HCl (Zofran Inj) 4 mg IVP Q4H PRN PRN Reason: Nausea/Vomiting Last Admin: 04/14/17 12:11 Dose: 4 mg Pantoprazole Sodium (Protonix Ec Tab) 40 mg PO DAILY [facility] Last Admin: 04/16/17 09:18 Dose: 40 mg Sodium Bicarbonate (Sodium Bicarbonate Tab) 1,300 mg PO QID [facility] Last Admin: 04/16/17 09:17 Dose: 1,300 mg Zinc Sulfate (Zinc Sulfate 220 Mg Cap) 220 mg PO DAILY [facility] Last Admin: 04/16/17 09:17 Dose: 220 mg - Labs Labs: 04/16/17 06:00 04/16/17 06:00 PT 14.7 SECONDS (9.4-12.5) H 04/10/17 16:05 INR 1.28 (0.93-1.08) H 04/10/17 16:05 APTT 33.0 Seconds (25.1-36.5) 04/10/17 16:05 - Constitutional Appears: Chronically Ill - Head Exam Head Exam: NORMAL INSPECTION - Neck Exam Neck Exam: absent: Meningismus - Respiratory Exam Respiratory Exam: Decreased Breath Sounds - Cardiovascular Exam Cardiovascular Exam: +S1, +S2 - GI/Abdominal Exam GI & Abdominal Exam: Soft. absent: Tenderness Assessment and Plan - Assessment and Plan (Free Text) Plan: Assessment severe sepsis due to right foot cellulitis with chronic osteomyelitis history of Acute osteomyelitis of the left foot; growing beta hemolytic strep DM Plan concerned that patient developed rash while on Zyvox and Merrem - will continue patient on Daptomycin and will need 4 weeks with weekly ESR, CRP, CBC, CMP, CPK levels
[2017-04-16] MEDS: VELTASSA 8.4 GM PO SCH (13:05)
--- NOTE | 2017-04-16 15:17 | CP.PCM.PN ---
<JavierGiovannadorethaezekiel - Last Filed: 04/16/17 15:11> Subjective - Date & Time of Evaluation Date of Evaluation: 04/16/17 Time of Evaluation: 15:11 - Subjective Subjective: 61 y/o female seen at bedside regarding right foot ulceration. Patient is AAOx3 and is in NAD. Patient denies any acute overnight events. Pt is tolerating diet well but reports that she is not as hungry all the time. Denies F/C/N/V/CP/SOB. Has no new pedal complaints at this time. Objective - Vital Signs/Intake and Output Vital Signs (last 24 hours): Temp Pulse Resp BP Pulse Ox 100.6 F H 95 H 20 145/65 99 04/16/17 12:00 04/16/17 12:00 04/16/17 12:00 04/16/17 12:00 04/16/17 05:43 Intake and Output: 04/16/17 04/16/17 06:59 18:59 Intake Total 2040 Output Total 300 Balance 1740 - Medications Medications: Current Medications Aspirin (Ecotrin) 81 mg PO DAILY [facility] Last Admin: 04/16/17 09:18 Dose: 81 mg Cyanocobalamin (Vitamin B12 1000 Mcg Tab) 500 mcg PO DAILY [facility] Last Admin: 04/16/17 09:18 Dose: 500 mcg Ferrous Sulfate (Feosol) 324 mg PO TID [facility] Last Admin: 04/16/17 14:09 Dose: 324 mg Folic Acid (Folic Acid) 1 mg PO DAILY [facility] Last Admin: 04/16/17 09:17 Dose: 1 mg Heparin Sodium (Porcine) (Heparin) 5,000 units SC Q8 [facility] PRN Reason: Protocol Last Admin: 04/16/17 14:09 Dose: 5,000 units Home Med (Home Med) 1 unit PO DAILY@1200 [facility] Last Admin: 04/16/17 13:05 Dose: 1 unit Sodium Chloride (Sodium Chloride 0.45%) 1,000 mls @ 75 mls/hr IV .[id number] [facility] Last Admin: 04/16/17 07:46 Dose: 75 mls/hr Daptomycin 260 mg/ Sodium (Chloride) 100 mls @ 200 mls/hr IV Q24H [facility] Stop: 05/14/17 11:16 Last Admin: 04/16/17 14:19 Dose: Not Given Insulin Human Regular (Humulin R Low) 0 units SC ACHS [facility] PRN Reason: Protocol Last Admin: 04/16/17 13:04 Dose: 3 units Loperamide HCl (Imodium) 2 mg PO BID [facility] Last Admin: 04/16/17 09:17 Dose: 2 mg Megestrol Acetate (Megace) 40 mg PO DAILY [facility] Last Admin: 04/16/17 09:17 Dose: 40 mg Metoprolol Succinate (Toprol Xl) 25 mg PO DAILY [facility] Last Admin: 04/16/17 09:18 Dose: 25 mg Multivitamins/Minerals (Therapeutic-M Tab) 1 tab PO 0800 [facility] Last Admin: 04/16/17 09:18 Dose: 1 tab Mupirocin (Bactroban Ointment) 0 gm TOP BID [facility] Last Admin: 04/15/17 17:16 Dose: 1 unit Ondansetron HCl (Zofran Inj) 4 mg IVP Q4H PRN PRN Reason: Nausea/Vomiting Last Admin: 04/14/17 12:11 Dose: 4 mg Pantoprazole Sodium (Protonix Ec Tab) 40 mg PO DAILY [facility] Last Admin: 04/16/17 09:18 Dose: 40 mg Sodium Bicarbonate (Sodium Bicarbonate Tab) 1,300 mg PO QID [facility] Last Admin: 04/16/17 14:09 Dose: 1,300 mg Zinc Sulfate (Zinc Sulfate 220 Mg Cap) 220 mg PO DAILY [facility] Last Admin: 04/16/17 09:17 Dose: 220 mg - Labs Labs: 04/16/17 06:00 04/16/17 06:00 PT 14.7 SECONDS (9.4-12.5) H 04/10/17 16:05 INR 1.28 (0.93-1.08) H 04/10/17 16:05 APTT 33.0 Seconds (25.1-36.5) 04/10/17 16:05 - Constitutional Appears: Well, Non-toxic, No Acute Distress - Extremities Exam Additional comments: Lower extremity focused examination: Vasc: DP/PT pulses palpable 2/4 B/L. Temperature gradient warm to warm. CFT < 3 sec to all digits Derm: Single ulceration noted to right foot 2nd metatarsal head at previous 2nd digit amputaton site. Dorsal ulceration measures approx 1cm x 0.7cm x 0.5cm in depth, (+) probe to 2nd metatarsal bone. At this time, new tissue formation is evident to wound bed with mixed fibrogranular base. Previous plantar ulceration connecting to above mentioned dorsal ulceration now appears to be closing with hyperkeratotic tissue overlying. Wound borders are negative for hyperkeratosis or maceration. Kerrie wound erythema noted to both wounds. Additional superficial ulceration noted to left lateral malleolus with mixed fibrogranular base; periwound negative for erythema; no malodor, drainage, purulence, tunneling or undermining Neuro: Protective sensation is grossly intact B/L Ortho: Mild tenderness to palpation of right foot interspace ulceration. Left ankle ulceration mildly tender - Neurological Exam Neurological Exam: Alert, Awake, Oriented x3 - Psychiatric Exam Psychiatric exam: Normal Affect, Normal Mood Assessment and Plan - Assessment and Plan (Free Text) Assessment: 61 y/o female with 1) right foot ulceration with clinical osteomyelitis, (+) probe to bone 2) left ankle ulceration, stable Plan: Pt seen and evaluated at bedside Discussed with attending Dr. Mattson Labs and vitals reviewed- afebrile, WBC 3.7 Wound culture (+) for B hemolytic strep group B Bilateral ulcerations cleansed with saline Right foot ulceration dressed with hydrogel and DSD Left ankle ulceration dressed with bactroban and Optifoam Continue Multipodus boots while in bed Arterial duplex scan - mildly abnormal CASSIDY MRI of the R foot: marrow edema of 2nd metatarsal consistent with OM; strong clinical suspicion of OM Podiatry holding off on surgical intervention until evaluated by Dr. Ortiz tomorrow Continue IV abx as per ID - Zyvox, Merrem Pt is allowed PWB to right heel - has own Darco wound shoes which may be used for ambulation Podiatry will continue to follow patient while in house <Leatha Mattson - Last Filed: 04/23/17 14:50> Objective - Vital Signs/Intake and Output Vital Signs (last 24 hours): Temp Pulse Resp BP Pulse Ox 97.8 F 83 18 132/56 L 98 04/23/17 07:42 04/23/17 10:55 04/23/17 07:42 04/23/17 10:55 04/23/17 07:42 Intake and Output: 04/23/17 04/23/17 06:59 18:59 Intake Total 360 Output Total 1000 Balance -640 - Medications Medications: Current Medications Acetaminophen (Tylenol 325mg Tab) 650 mg PO Q6H PRN PRN Reason: Pain, Mild (1-3) Aspirin (Ecotrin) 81 mg PO DAILY [facility] Last Admin: 04/23/17 10:55 Dose: 81 mg Benzonatate (Tessalon Perles) 100 mg PO TID PRN PRN Reason: cough Last Admin: 04/22/17 21:27 Dose: 100 mg Cyanocobalamin (Vitamin B12 1000 Mcg Tab) 500 mcg PO DAILY [facility] Last Admin: 04/23/17 10:55 Dose: 500 mcg Ferrous Sulfate (Feosol) 324 mg PO TID [facility] Last Admin: 04/23/17 14:36 Dose: 324 mg Folic Acid (Folic Acid) 1 mg PO DAILY [facility] Last Admin: 04/23/17 10:55 Dose: 1 mg Home Med (Home Med) 1 unit PO DAILY@1200 [facility] Last Admin: 04/23/17 12:43 Dose: 1 unit Linezolid (Zyvox 600mg/300ml D5w) 600 mg in 300 mls @ 200 mls/hr IVPB Q12 [facility] PRN Reason: Protocol Stop: 04/25/17 10:01 Last Admin: 04/23/17 10:54 Dose: 200 mls/hr Insulin Human Regular (Humulin R Low) 0 units SC ACHS [facility] PRN Reason: Protocol Last Admin: 04/23/17 12:18 Dose: 2 units Loperamide HCl (Imodium) 2 mg PO BID [facility] Last Admin: 04/23/17 10:55 Dose: 2 mg Megestrol Acetate (Megace) 40 mg PO DAILY [facility] Last Admin: 04/23/17 10:55 Dose: 40 mg Metoprolol Succinate (Toprol Xl) 25 mg PO DAILY [facility] Last Admin: 04/23/17 10:55 Dose: 25 mg Multivitamins/Minerals (Therapeutic-M Tab) 1 tab PO 0800 [facility] Last Admin: 04/23/17 08:25 Dose: 1 tab Mupirocin (Bactroban Ointment) 0 gm TOP BID [facility] Last Admin: 04/23/17 12:18 Dose: 1 applic Nystatin (Nystop Topical Powder) 0 gm TOP BID [facility] Last Admin: 04/23/17 12:18 Dose: 1 applic Ondansetron HCl (Zofran Inj) 4 mg IVP Q4H PRN PRN Reason: Nausea/Vomiting Last Admin: 04/19/17 13:40 Dose: 4 mg Pantoprazole Sodium (Protonix Ec Tab) 40 mg PO DAILY [facility] Last Admin: 04/23/17 10:54 Dose: 40 mg Sodium Bicarbonate (Sodium Bicarbonate Tab) 1,300 mg PO QID [facility] Last Admin: 04/23/17 14:36 Dose: 1,300 mg Vitamin A (Vitamin A & D Oint Ud Foilpak) 1 ea TOP Q8 PRN PRN Reason: Moisture Zinc Sulfate (Zinc Sulfate 220 Mg Cap) 220 mg PO DAILY [facility] Last Admin: 04/23/17 10:54 Dose: 220 mg - Labs Labs: 04/23/17 07:50 04/23/17 07:50 PT 13.6 SECONDS (9.4-12.5) H 04/17/17 06:30 INR 1.18 (0.93-1.08) H 04/17/17 06:30 APTT 33.0 Seconds (25.1-36.5) 04/10/17 16:05 Attending/Attestation - Attestation I have personally seen and examined this patient.: Yes I have fully participated in the care of the patient.: Yes I have reviewed all pertinent clinical information, including history, physical exam and plan: Yes
[2017-04-17 07:16] LABS: BASO # 0.02 K/mm3 (0.0-2.0); BASO % 0.5 % (0.0-3.0); EOS # 0.1 (0.0-0.7); EOS % 1.6 % (1.5-5.0); GRAN # 2.39 (1.4-6.5); GRAN % 56.3 % (50.0-68.0); HEMOGLOBIN 11.7 g/dL (12.0-16.0); LYMPH # 1.2 (1.2-3.4); MEAN CELL VOLUME 91.3 fl (80.0-105.0); MEAN CORPUSCULAR HGB CONC 31.8 g/dl (31.0-37.0); MEAN PLATELET VOLUME 10.3 fl (7.0-11.0); MONO # 0.6 (0.1-0.6); MONO % 13.6 % (1.0-6.0); RBC 4.03 10^6/uL (3.5-6.1); RED CELL DISTRIBUTION WIDTH 14.9 % (11.5-14.5); WHITE BLOOD COUNT 4.3 10^3/ul (4.5-11.0)
[2017-04-17 07:35] LABS: INR 1.18 (0.93-1.08); PROTHROMBIN TIME 13.6 SECONDS (9.4-12.5)
[2017-04-17 07:42] LABS: ALBUMIN 3.4 g/dL (3.0-4.8); CALCIUM 9.6 mg/dL (8.4-10.5)
[2017-04-17] MEDS: Insulin Reg-LOW-Coverage SC SCH ×4 (07:43→21:58)
--- NOTE | 2017-04-17 08:23 | CP.PCM.PN ---
<Asif Newell - Last Filed: 04/17/17 13:08> Subjective - Date & Time of Evaluation Date of Evaluation: 04/17/17 Time of Evaluation: 07:30 - Subjective Subjective: Asif Newell DO PGY1 - IM Progress Note Patient seen and examined at bedside, no acute events overnight. Patient was febrile yesterday, observed as high as 102.1, measured rectally. She has not been febrile since approximately 1800 yesterday. Today, she is complaining of new onset cough and congestion, as well as dysuria. She denies any subjective fever, nausea, vomiting, constipation, abdominal pain, chest pain, or shortness of breath. She continues to have diarrhea. Objective - Vital Signs/Intake and Output Vital Signs (last 24 hours): Temp Pulse Resp BP Pulse Ox 99.6 F 102 H 20 158/70 H 98 04/17/17 06:00 04/17/17 06:00 04/17/17 06:00 04/17/17 06:00 04/17/17 06:00 Intake and Output: 04/17/17 04/17/17 06:59 18:59 Intake Total 1140 Balance 1140 - Medications Medications: Current Medications Aspirin (Ecotrin) 81 mg PO DAILY [facility] Last Admin: 04/16/17 09:18 Dose: 81 mg Cyanocobalamin (Vitamin B12 1000 Mcg Tab) 500 mcg PO DAILY [facility] Last Admin: 04/16/17 09:18 Dose: 500 mcg Ferrous Sulfate (Feosol) 324 mg PO TID [facility] Last Admin: 04/16/17 18:41 Dose: 324 mg Folic Acid (Folic Acid) 1 mg PO DAILY [facility] Last Admin: 04/16/17 09:17 Dose: 1 mg Heparin Sodium (Porcine) (Heparin) 5,000 units SC Q8 [facility] PRN Reason: Protocol Last Admin: 04/17/17 05:24 Dose: 5,000 units Home Med (Home Med) 1 unit PO DAILY@1200 [facility] Last Admin: 04/16/17 13:05 Dose: 1 unit Sodium Chloride (Sodium Chloride 0.45%) 1,000 mls @ 75 mls/hr IV .[id number] [facility] Last Admin: 04/16/17 21:07 Dose: 75 mls/hr Daptomycin 260 mg/ Sodium (Chloride) 100 mls @ 200 mls/hr IV Q24H [facility] Stop: 05/14/17 11:16 Last Admin: 04/16/17 14:19 Dose: Not Given Insulin Human Regular (Humulin R Low) 0 units SC ACHS [facility] PRN Reason: Protocol Last Admin: 04/17/17 07:43 Dose: Not Given Loperamide HCl (Imodium) 2 mg PO BID [facility] Last Admin: 04/16/17 18:41 Dose: 2 mg Megestrol Acetate (Megace) 40 mg PO DAILY [facility] Last Admin: 04/16/17 09:17 Dose: 40 mg Metoprolol Succinate (Toprol Xl) 25 mg PO DAILY [facility] Last Admin: 04/16/17 09:18 Dose: 25 mg Multivitamins/Minerals (Therapeutic-M Tab) 1 tab PO 0800 [facility] Last Admin: 04/16/17 09:18 Dose: 1 tab Mupirocin (Bactroban Ointment) 0 gm TOP BID [facility] Last Admin: 04/15/17 17:16 Dose: 1 unit Ondansetron HCl (Zofran Inj) 4 mg IVP Q4H PRN PRN Reason: Nausea/Vomiting Last Admin: 04/14/17 12:11 Dose: 4 mg Pantoprazole Sodium (Protonix Ec Tab) 40 mg PO DAILY [facility] Last Admin: 04/16/17 09:18 Dose: 40 mg Sodium Bicarbonate (Sodium Bicarbonate Tab) 1,300 mg PO QID [facility] Last Admin: 04/16/17 21:06 Dose: 1,300 mg Zinc Sulfate (Zinc Sulfate 220 Mg Cap) 220 mg PO DAILY [facility] Last Admin: 04/16/17 09:17 Dose: 220 mg - Labs Labs: 04/17/17 06:30 04/17/17 06:30 PT 13.6 SECONDS (9.4-12.5) H 04/17/17 06:30 INR 1.18 (0.93-1.08) H 04/17/17 06:30 APTT 33.0 Seconds (25.1-36.5) 04/10/17 16:05 - Additional Findings Additional findings: - Constitutional Appears: Non-toxic, No Acute Distress, Chronically Ill - Head Exam Head Exam: ATRAUMATIC, NORMOCEPHALIC - Eye Exam Eye Exam: EOMI, Normal appearance, PERRL - ENT Exam ENT Exam: Mucous Membranes Dry - Neck Exam Neck Exam: Normal Inspection - Respiratory Exam Respiratory Exam: Clear to Ausculation Bilateral, NORMAL BREATHING PATTERN - Cardiovascular Exam Cardiovascular Exam: RRR, +S1, +S2 - GI/Abdominal Exam GI & Abdominal Exam: Soft, Normal Bowel Sounds. absent: Rigid, Tenderness - Extremities Exam Extremities Exam: absent: Calf Tenderness, Pedal Edema Additional comments: bilateral feet with dressings in place. Some small amount of drainage noted over toes of right foot; with offloading cushions - Neurological Exam Neurological Exam: Alert, Awake, Oriented x3 - Psychiatric Exam Psychiatric exam: Normal Affect, Normal Mood - Skin Skin Exam: Dry, Intact Additional comments: Rash markedly improved since yesterday. Still with mild erythema over ventral aspect of right forearm Bullae decreased in size; large bulla on lateral aspect of right thigh appears to have ruptured. No purulence or bleeding. Assessment and Plan - Assessment and Plan (Free Text) Assessment: 61F with PMH of Diabetes mellitus type 2, anemia, peripheral arterial disease, GERD, osteomyelitis, esophageal stenosis, hypertension, chronic kidney disease, CAD, and arthritis who presents to the ED from the wound care clinic with Dr. Raymond for osteomyelitis of the right foot. Plan: Osteomyelitis R 2nd metatarsal; initially presented with Sepsis -Continue Daptomycin 6mg/kg Q24H -Continue IVF -Wound culture shows Group B Beta Hemolytic Strep -Patient was febrile yesterday, but no fevers overnight - Repeat blood cultures pending; nurse was unable to collect fluid from blisters for culture - Patient now complaining of dysuria and cough; ordered UA, UCx, and CXR -Per podiatry and vascular surgery, no surgical intervention at this time -PT Eval/Treat for gait training and weakness; partial weight bearing -Vascular Surgery consulted - Dr. Najera -ID consulted - Dr. Nair -Podiatry consulted - Dr. Mattson Rash - Rash slightly improved on both arms, legs, face, and neck; bullae unchanged - Possibly 2/2 Zyvox administration vs hematogenous infection vs bacterial lysis - Repeat blood cultures and wound culture, as abnove - Discussed with ID: discontinue Zyvox and switch to Daptomycin Chronic diarrhea - Patient reports one year of chronic watery diarrhea, not associated with any partricular triggers or pattern related to diet - C diff negative - Immodium held today; pending infectious workup - Stool workup pending, per GI - Requested GI consult; appreciate recs Anemia -H&H stable -Continue to monitor FREDY -Likely prerenal, considering septic state; improving, nearly back to baseline -Urine studies pending -Continue IVF hydration and PO hydration -Nephrology consulted (Dr. Reyes), recs appreciated Hypernatremia -Resolved, but patient continues to have multiple causes of hypoosmotic fluid losses -Continue hypoosmotic IVF - 1/2 NS @75cc/hr -Encourage PO water intake Elevated LFTs -Stable; Continue to monitor -Autoimmune workup pending; per GI -Viral hep panel negative; Abd US and CT A/P showed increased echogenicity, likely fatty liver -GI on consult; appreciate recs Diabetes mellitus type 2 -low dose sliding scale -Consistent carb diet -Fingersticks ACHS CAD -Continue ASA 81mg po daily GI/DVT prophylaxis -Protonix -Heparin Patient seen, discussed, and reviewed with attending Dr. Rodríguez <Jaun Rodríguez - Last Filed: 04/17/17 15:08> Objective - Vital Signs/Intake and Output Vital Signs (last 24 hours): Temp Pulse Resp BP Pulse Ox 98.9 F 100 H 18 119/61 100 04/17/17 12:00 04/17/17 12:00 04/17/17 12:00 04/17/17 12:00 04/17/17 12:00 Intake and Output: 04/17/17 04/17/17 06:59 18:59 Intake Total 1140 Balance 1140 - Medications Medications: Current Medications Aspirin (Ecotrin) 81 mg PO DAILY [facility] Last Admin: 04/17/17 10:15 Dose: 81 mg Cyanocobalamin (Vitamin B12 1000 Mcg Tab) 500 mcg PO DAILY [facility] Last Admin: 04/17/17 10:18 Dose: 500 mcg Ferrous Sulfate (Feosol) 324 mg PO TID [facility] Last Admin: 04/17/17 14:37 Dose: 324 mg Folic Acid (Folic Acid) 1 mg PO DAILY [facility] Last Admin: 04/17/17 10:15 Dose: 1 mg Heparin Sodium (Porcine) (Heparin) 5,000 units SC Q8 [facility] PRN Reason: Protocol Last Admin: 04/17/17 14:37 Dose: 5,000 units Home Med (Home Med) 1 unit PO DAILY@1200 [facility] Last Admin: 04/17/17 12:21 Dose: 1 unit Sodium Chloride (Sodium Chloride 0.45%) 1,000 mls @ 75 mls/hr IV .[id number] [facility] Last Admin: 04/17/17 09:12 Dose: Not Given Daptomycin 260 mg/ Sodium (Chloride) 100 mls @ 200 mls/hr IV Q24H [facility] Stop: 05/14/17 11:16 Last Admin: 04/17/17 12:19 Dose: 200 mls/hr Insulin Human Regular (Humulin R Low) 0 units SC ACHS [facility] PRN Reason: Protocol Last Admin: 04/17/17 12:21 Dose: 2 units Loperamide HCl (Imodium) 2 mg PO BID [facility] Last Admin: 04/17/17 10:17 Dose: 2 mg Megestrol Acetate (Megace) 40 mg PO DAILY [facility] Last Admin: 04/17/17 10:17 Dose: 40 mg Metoprolol Succinate (Toprol Xl) 25 mg PO DAILY [facility] Last Admin: 04/17/17 10:17 Dose: 25 mg Multivitamins/Minerals (Therapeutic-M Tab) 1 tab PO 0800 [facility] Last Admin: 04/17/17 10:17 Dose: 1 tab Mupirocin (Bactroban Ointment) 0 gm TOP BID [facility] Last Admin: 04/17/17 10:12 Dose: 1 unit Nystatin (Nystop Topical Powder) 0 gm TOP BID [facility] Ondansetron HCl (Zofran Inj) 4 mg IVP Q4H PRN PRN Reason: Nausea/Vomiting Last Admin: 04/14/17 12:11 Dose: 4 mg Pantoprazole Sodium (Protonix Ec Tab) 40 mg PO DAILY [facility] Last Admin: 04/17/17 10:17 Dose: 40 mg Sodium Bicarbonate (Sodium Bicarbonate Tab) 1,300 mg PO QID [facility] Last Admin: 04/17/17 14:38 Dose: 1,300 mg Zinc Sulfate (Zinc Sulfate 220 Mg Cap) 220 mg PO DAILY [facility] Last Admin: 04/17/17 10:18 Dose: 220 mg - Labs Labs: 04/17/17 06:30 04/17/17 06:30 PT 13.6 SECONDS (9.4-12.5) H 04/17/17 06:30 INR 1.18 (0.93-1.08) H 04/17/17 06:30 APTT 33.0 Seconds (25.1-36.5) 04/10/17 16:05 Attending/Attestation - Attestation I have personally seen and examined this patient.: Yes I have fully participated in the care of the patient.: Yes I have reviewed all pertinent clinical information, including history, physical exam and plan: Yes Notes (Text): 04/17/17 15:03 Attending note; Patient seen and examined with resident. Patient is a 61 year old female with history of type 2 diabetes,chronic anemia , chronic diarrhea,peripheral arterial disease, esophageal stenosis, hypertension, chronic kidney disease and arthritis was sent by [employer] for evaluation of osteomyelitis of right second metatarsal. She had severe sepsis secondary to osteomyelitis of right foot. Wound culture is growing beta hemolytic group B. Currently on IV daptomycin .Zyvox stopped due to rash and elevated LFTs . Elevated LFTs ; patient with previous history of fatty liver and mildly elevated LFTs .GI evaluation appreciated. LFT is improving. Patient will need outpatient colonoscopy and further workup for anemia .Hepatitis panel is negative. CT scan revealed fatty infiltration. CASSIDY is mildly abnormal. Vascular consult appreciated. we will follow up with podiatry for further plan. Diarrhea is improving. C. difficile is negative. Tolerating diet well. Upon discharge patient will follow up with Dr. Chavez.
[2017-04-17] MEDS: Sodium Chloride 0.45% 1,000 ML IV SCH ×2 (09:11→09:12)
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
[2017-04-17] MEDS: Multivitamin With Minerals Tab PO SCH (10:17)
[2017-04-17] MEDS: Pantoprazole 40 mg EC Tab PO SCH (10:17)
[2017-04-17] MEDS: Metoprolol Succinate 25 mg XL Tab PO SCH (10:17)
[2017-04-17 10:18] LABS: PH,URINE 6.5 (4.7-8.0); URINE BILIRUBIN NEGATIVE (NEGATIVE); URINE BLOOD TRACE-LYSED (NEGATIVE); URINE GLUCOSE (UA) 250 mg/dL (NEGATIVE); URINE LEUKOCYTE ESTERASE TRACE Leu/uL (NEGATIVE); URINE NITRATE NEGATIVE (NEGATIVE); URINE PROTEIN 30 mg/dL (<30 mg/dL); URINE UROBILINOGEN 0.2 E.U./dL (<1 E.U./dL)
[2017-04-17 10:19] LABS: URINE APPEARANCE SL CLOUDY (CLEAR); URINE COLOR YELLOW (YELLOW)
[2017-04-17 10:20] LABS: URINE RBC 0 - 2 /hpf (0-2)
[2017-04-17] MEDS: VELTASSA 8.4 GM PO SCH (12:21)
--- NOTE | 2017-04-17 12:37 | CP.PCM.PN ---
Subjective - Date & Time of Evaluation Date of Evaluation: 04/17/17 Time of Evaluation: 11:15 - Subjective Subjective: No fevers, not in distress, rash is improved. Objective - Vital Signs/Intake and Output Vital Signs (last 24 hours): Temp Pulse Resp BP Pulse Ox 99.6 F 102 H 20 158/70 H 98 04/17/17 06:00 04/17/17 06:00 04/17/17 06:00 04/17/17 06:00 04/17/17 06:00 Intake and Output: 04/17/17 04/17/17 06:59 18:59 Intake Total 1140 Balance 1140 - Medications Medications: Current Medications Aspirin (Ecotrin) 81 mg PO DAILY [facility] Last Admin: 04/16/17 09:18 Dose: 81 mg Cyanocobalamin (Vitamin B12 1000 Mcg Tab) 500 mcg PO DAILY [facility] Last Admin: 04/16/17 09:18 Dose: 500 mcg Ferrous Sulfate (Feosol) 324 mg PO TID [facility] Last Admin: 04/16/17 18:41 Dose: 324 mg Folic Acid (Folic Acid) 1 mg PO DAILY [facility] Last Admin: 04/16/17 09:17 Dose: 1 mg Heparin Sodium (Porcine) (Heparin) 5,000 units SC Q8 [facility] PRN Reason: Protocol Last Admin: 04/17/17 05:24 Dose: 5,000 units Home Med (Home Med) 1 unit PO DAILY@1200 [facility] Last Admin: 04/16/17 13:05 Dose: 1 unit Sodium Chloride (Sodium Chloride 0.45%) 1,000 mls @ 75 mls/hr IV .[id number] [facility] Last Admin: 04/17/17 09:12 Dose: Not Given Daptomycin 260 mg/ Sodium (Chloride) 100 mls @ 200 mls/hr IV Q24H [facility] Stop: 05/14/17 11:16 Last Admin: 04/16/17 14:19 Dose: Not Given Insulin Human Regular (Humulin R Low) 0 units SC ACHS [facility] PRN Reason: Protocol Last Admin: 04/17/17 07:43 Dose: Not Given Loperamide HCl (Imodium) 2 mg PO BID [facility] Last Admin: 04/16/17 18:41 Dose: 2 mg Megestrol Acetate (Megace) 40 mg PO DAILY [facility] Last Admin: 04/16/17 09:17 Dose: 40 mg Metoprolol Succinate (Toprol Xl) 25 mg PO DAILY [facility] Last Admin: 04/16/17 09:18 Dose: 25 mg Multivitamins/Minerals (Therapeutic-M Tab) 1 tab PO 0800 [facility] Last Admin: 04/16/17 09:18 Dose: 1 tab Mupirocin (Bactroban Ointment) 0 gm TOP BID [facility] Last Admin: 04/15/17 17:16 Dose: 1 unit Ondansetron HCl (Zofran Inj) 4 mg IVP Q4H PRN PRN Reason: Nausea/Vomiting Last Admin: 04/14/17 12:11 Dose: 4 mg Pantoprazole Sodium (Protonix Ec Tab) 40 mg PO DAILY [facility] Last Admin: 04/16/17 09:18 Dose: 40 mg Sodium Bicarbonate (Sodium Bicarbonate Tab) 1,300 mg PO QID [facility] Last Admin: 04/16/17 21:06 Dose: 1,300 mg Zinc Sulfate (Zinc Sulfate 220 Mg Cap) 220 mg PO DAILY [facility] Last Admin: 04/16/17 09:17 Dose: 220 mg - Labs Labs: 04/17/17 06:30 04/17/17 06:30 PT 13.6 SECONDS (9.4-12.5) H 04/17/17 06:30 INR 1.18 (0.93-1.08) H 04/17/17 06:30 APTT 33.0 Seconds (25.1-36.5) 04/10/17 16:05 - Constitutional Appears: Chronically Ill - Head Exam Head Exam: NORMAL INSPECTION - Respiratory Exam Respiratory Exam: Decreased Breath Sounds - Cardiovascular Exam Cardiovascular Exam: +S1, +S2 - GI/Abdominal Exam GI & Abdominal Exam: Soft. absent: Tenderness Assessment and Plan - Assessment and Plan (Free Text) Plan: Assessment severe sepsis due to right foot cellulitis with chronic osteomyelitis history of Acute osteomyelitis of the left foot; growing beta hemolytic strep DM Plan concerned that patient developed rash while on Zyvox and Merrem - will continue patient on Daptomycin and will need 4 weeks with weekly ESR, CRP, CBC, CMP, CPK levels (has had one week of antibiotics already)
--- NOTE | 2017-04-17 13:30 | RAD ---
HISTORY: cough COMPARISON: 04/10/2017 FINDINGS: LUNGS: No active pulmonary disease. PLEURA: No significant pleural effusion identified, no pneumothorax apparent. CARDIOVASCULAR: Normal. OSSEOUS STRUCTURES: No significant abnormalities. VISUALIZED UPPER ABDOMEN: Normal. OTHER FINDINGS: None. IMPRESSION: No active disease.
--- NOTE | 2017-04-17 14:13 | CP.PCM.PN ---
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 consider PRBC transfusion hypernatremia improving dose abx for reduced gfr monitor lytes General Appearance: Comfortable, in no acute respiratory distress, co-operative . thin built Head; Atraumatic, normocephalic ENT: no ulcers EYES: Sclera is anicteric. Neck; supple Lungs: Normal respiratory rate/effort. Breath sounds bilateral equal and clear Heart: s1s2 normal. No rub or gallop. Extremities: no edema No varicose veins. Hand osteoarthritic deformities +. Neurological: Patient is alert, awake and oriented to person, place and time. No focal deficit. Strength bilateral appropriate and equal Skin: Warm and dry rash+ Abdomen: Abdomen is soft. Bowel sounds + Psych: normal insight and normal affect/mood Objective - Vital Signs/Intake and Output Vital Signs (last 24 hours): Temp Pulse Resp BP Pulse Ox 98.9 F 100 H 18 119/61 100 04/17/17 12:00 04/17/17 12:00 04/17/17 12:00 04/17/17 12:00 04/17/17 12:00 Intake and Output: 04/17/17 04/17/17 06:59 18:59 Intake Total 1140 Balance 1140 - Medications Medications: Current Medications Aspirin (Ecotrin) 81 mg PO DAILY [facility] Last Admin: 04/17/17 10:15 Dose: 81 mg Cyanocobalamin (Vitamin B12 1000 Mcg Tab) 500 mcg PO DAILY [facility] Last Admin: 04/17/17 10:18 Dose: 500 mcg Ferrous Sulfate (Feosol) 324 mg PO TID [facility] Last Admin: 04/17/17 10:15 Dose: 324 mg Folic Acid (Folic Acid) 1 mg PO DAILY [facility] Last Admin: 04/17/17 10:15 Dose: 1 mg Heparin Sodium (Porcine) (Heparin) 5,000 units SC Q8 [facility] PRN Reason: Protocol Last Admin: 04/17/17 05:24 Dose: 5,000 units Home Med (Home Med) 1 unit PO DAILY@1200 [facility] Last Admin: 04/17/17 12:21 Dose: 1 unit Sodium Chloride (Sodium Chloride 0.45%) 1,000 mls @ 75 mls/hr IV .[id number] [facility] Last Admin: 04/17/17 09:12 Dose: Not Given Daptomycin 260 mg/ Sodium (Chloride) 100 mls @ 200 mls/hr IV Q24H [facility] Stop: 05/14/17 11:16 Last Admin: 04/17/17 12:19 Dose: 200 mls/hr Insulin Human Regular (Humulin R Low) 0 units SC ACHS [facility] PRN Reason: Protocol Last Admin: 04/17/17 12:21 Dose: 2 units Loperamide HCl (Imodium) 2 mg PO BID [facility] Last Admin: 04/17/17 10:17 Dose: 2 mg Megestrol Acetate (Megace) 40 mg PO DAILY [facility] Last Admin: 04/17/17 10:17 Dose: 40 mg Metoprolol Succinate (Toprol Xl) 25 mg PO DAILY [facility] Last Admin: 04/17/17 10:17 Dose: 25 mg Multivitamins/Minerals (Therapeutic-M Tab) 1 tab PO 0800 [facility] Last Admin: 04/17/17 10:17 Dose: 1 tab Mupirocin (Bactroban Ointment) 0 gm TOP BID [facility] Last Admin: 04/17/17 10:12 Dose: 1 unit Ondansetron HCl (Zofran Inj) 4 mg IVP Q4H PRN PRN Reason: Nausea/Vomiting Last Admin: 04/14/17 12:11 Dose: 4 mg Pantoprazole Sodium (Protonix Ec Tab) 40 mg PO DAILY [facility] Last Admin: 04/17/17 10:17 Dose: 40 mg Sodium Bicarbonate (Sodium Bicarbonate Tab) 1,300 mg PO QID [facility] Last Admin: 04/17/17 10:17 Dose: 1,300 mg Zinc Sulfate (Zinc Sulfate 220 Mg Cap) 220 mg PO DAILY [facility] Last Admin: 04/17/17 10:18 Dose: 220 mg - Labs Labs: 04/17/17 06:30 04/17/17 06:30 PT 13.6 SECONDS (9.4-12.5) H 04/17/17 06:30 INR 1.18 (0.93-1.08) H 04/17/17 06:30 APTT 33.0 Seconds (25.1-36.5) 04/10/17 16:05
--- NOTE | 2017-04-17 14:43 | CP.PCM.PN ---
<Ryan Herrera - Last Filed: 04/17/17 14:38> Subjective - Date & Time of Evaluation Date of Evaluation: 04/17/17 Time of Evaluation: 14:38 - Subjective Subjective: 61 y/o female patient seen at bedside regarding right foot ulceration. Patient is AAOx3 and is in NAD. Patient denies any acute overnight events. Pt is tolerating diet well but reports that she is not as hungry. Denies F/C/N/V/CP/ SOB. Denies of any pain today. Has no new pedal complaints at this time. Objective - Vital Signs/Intake and Output Vital Signs (last 24 hours): Temp Pulse Resp BP Pulse Ox 98.9 F 100 H 18 119/61 100 04/17/17 12:00 04/17/17 12:00 04/17/17 12:00 04/17/17 12:00 04/17/17 12:00 Intake and Output: 04/17/17 04/17/17 06:59 18:59 Intake Total 1140 Balance 1140 - Medications Medications: Current Medications Aspirin (Ecotrin) 81 mg PO DAILY [facility] Last Admin: 04/17/17 10:15 Dose: 81 mg Cyanocobalamin (Vitamin B12 1000 Mcg Tab) 500 mcg PO DAILY [facility] Last Admin: 04/17/17 10:18 Dose: 500 mcg Ferrous Sulfate (Feosol) 324 mg PO TID [facility] Last Admin: 04/17/17 10:15 Dose: 324 mg Folic Acid (Folic Acid) 1 mg PO DAILY [facility] Last Admin: 04/17/17 10:15 Dose: 1 mg Heparin Sodium (Porcine) (Heparin) 5,000 units SC Q8 [facility] PRN Reason: Protocol Last Admin: 04/17/17 05:24 Dose: 5,000 units Home Med (Home Med) 1 unit PO DAILY@1200 [facility] Last Admin: 04/17/17 12:21 Dose: 1 unit Sodium Chloride (Sodium Chloride 0.45%) 1,000 mls @ 75 mls/hr IV .[id number] [facility] Last Admin: 04/17/17 09:12 Dose: Not Given Daptomycin 260 mg/ Sodium (Chloride) 100 mls @ 200 mls/hr IV Q24H [facility] Stop: 05/14/17 11:16 Last Admin: 04/17/17 12:19 Dose: 200 mls/hr Insulin Human Regular (Humulin R Low) 0 units SC ACHS [facility] PRN Reason: Protocol Last Admin: 04/17/17 12:21 Dose: 2 units Loperamide HCl (Imodium) 2 mg PO BID [facility] Last Admin: 04/17/17 10:17 Dose: 2 mg Megestrol Acetate (Megace) 40 mg PO DAILY [facility] Last Admin: 04/17/17 10:17 Dose: 40 mg Metoprolol Succinate (Toprol Xl) 25 mg PO DAILY [facility] Last Admin: 04/17/17 10:17 Dose: 25 mg Multivitamins/Minerals (Therapeutic-M Tab) 1 tab PO 0800 [facility] Last Admin: 04/17/17 10:17 Dose: 1 tab Mupirocin (Bactroban Ointment) 0 gm TOP BID [facility] Last Admin: 04/17/17 10:12 Dose: 1 unit Nystatin (Nystop Topical Powder) 0 gm TOP BID [facility] Ondansetron HCl (Zofran Inj) 4 mg IVP Q4H PRN PRN Reason: Nausea/Vomiting Last Admin: 04/14/17 12:11 Dose: 4 mg Pantoprazole Sodium (Protonix Ec Tab) 40 mg PO DAILY [facility] Last Admin: 04/17/17 10:17 Dose: 40 mg Sodium Bicarbonate (Sodium Bicarbonate Tab) 1,300 mg PO QID [facility] Last Admin: 04/17/17 10:17 Dose: 1,300 mg Zinc Sulfate (Zinc Sulfate 220 Mg Cap) 220 mg PO DAILY [facility] Last Admin: 04/17/17 10:18 Dose: 220 mg - Labs Labs: 04/17/17 06:30 04/17/17 06:30 PT 13.6 SECONDS (9.4-12.5) H 04/17/17 06:30 INR 1.18 (0.93-1.08) H 04/17/17 06:30 APTT 33.0 Seconds (25.1-36.5) 04/10/17 16:05 - Constitutional Appears: Well, Non-toxic, No Acute Distress - Extremities Exam Additional comments: Lower extremity focused examination: Vasc: DP/PT pulses palpable 2/4 B/L. Temperature gradient warm to warm. CFT < 3 sec to all digits Derm: Single ulceration noted to right foot 2nd metatarsal head at previous 2nd digit amputaton site. Dorsal ulceration measures approx 1cm x 0.7cm x 0.5cm in depth, (+) probe to 2nd metatarsal bone. At this time, new tissue formation is evident to wound bed with mixed fibrogranular base. Previous plantar ulceration connecting to above mentioned dorsal ulceration now appears to be closing with hyperkeratotic tissue overlying. Wound borders are negative for hyperkeratosis or maceration. Kerrie wound erythema noted to both wounds. Additional superficial ulceration noted to left lateral malleolus with mixed fibrogranular base; periwound negative for erythema; no malodor, drainage, purulence, tunneling or undermining Neuro: Protective sensation is grossly intact B/L Ortho: Mild tenderness to palpation of right foot interspace ulceration. Left ankle ulceration mildly tender - Neurological Exam Neurological Exam: Alert, Awake, Oriented x3 - Psychiatric Exam Psychiatric exam: Normal Affect, Normal Mood Assessment and Plan - Assessment and Plan (Free Text) Assessment: 61 y/o female with 1) right foot ulceration with clinical osteomyelitis, (+) probe to bone 2) left ankle ulceration, stable Plan: Pt seen and evaluated at bedside Discussed with attending Dr. Raymond Labs and vitals reviewed- afebrile, WBC 4.3 Wound culture (+) for B hemolytic strep group B Bilateral ulcerations cleansed with saline Right foot ulceration dressed with hydrogel and DSD Left ankle ulceration dressed with bactroban and Optifoam Continue Multipodus boots while in bed Arterial duplex scan - mildly abnormal CASSIDY MRI of the R foot: marrow edema of 2nd metatarsal consistent with OM; strong clinical suspicion of OM Podiatry will proceed with surgical intervention at this time Continue IV abx as per ID - Zyvox, Merrem Pt is allowed PWB to right heel - has own Darco wound shoes which may be used for ambulation Podiatry will continue to follow patient while in house <Jose Raymond - Last Filed: 04/17/17 14:58> Objective - Vital Signs/Intake and Output Vital Signs (last 24 hours): Temp Pulse Resp BP Pulse Ox 98.9 F 100 H 18 119/61 100 04/17/17 12:00 04/17/17 12:00 04/17/17 12:00 04/17/17 12:00 04/17/17 12:00 Intake and Output: 04/17/17 04/17/17 06:59 18:59 Intake Total 1140 Balance 1140 - Medications Medications: Current Medications Aspirin (Ecotrin) 81 mg PO DAILY [facility] Last Admin: 04/17/17 10:15 Dose: 81 mg Cyanocobalamin (Vitamin B12 1000 Mcg Tab) 500 mcg PO DAILY [facility] Last Admin: 04/17/17 10:18 Dose: 500 mcg Ferrous Sulfate (Feosol) 324 mg PO TID [facility] Last Admin: 04/17/17 14:37 Dose: 324 mg Folic Acid (Folic Acid) 1 mg PO DAILY [facility] Last Admin: 04/17/17 10:15 Dose: 1 mg Heparin Sodium (Porcine) (Heparin) 5,000 units SC Q8 [facility] PRN Reason: Protocol Last Admin: 04/17/17 14:37 Dose: 5,000 units Home Med (Home Med) 1 unit PO DAILY@1200 [facility] Last Admin: 04/17/17 12:21 Dose: 1 unit Sodium Chloride (Sodium Chloride 0.45%) 1,000 mls @ 75 mls/hr IV .[id number] [facility] Last Admin: 04/17/17 09:12 Dose: Not Given Daptomycin 260 mg/ Sodium (Chloride) 100 mls @ 200 mls/hr IV Q24H [facility] Stop: 05/14/17 11:16 Last Admin: 04/17/17 12:19 Dose: 200 mls/hr Insulin Human Regular (Humulin R Low) 0 units SC ACHS [facility] PRN Reason: Protocol Last Admin: 04/17/17 12:21 Dose: 2 units Loperamide HCl (Imodium) 2 mg PO BID [facility] Last Admin: 04/17/17 10:17 Dose: 2 mg Megestrol Acetate (Megace) 40 mg PO DAILY [facility] Last Admin: 04/17/17 10:17 Dose: 40 mg Metoprolol Succinate (Toprol Xl) 25 mg PO DAILY [facility] Last Admin: 04/17/17 10:17 Dose: 25 mg Multivitamins/Minerals (Therapeutic-M Tab) 1 tab PO 0800 [facility] Last Admin: 04/17/17 10:17 Dose: 1 tab Mupirocin (Bactroban Ointment) 0 gm TOP BID [facility] Last Admin: 04/17/17 10:12 Dose: 1 unit Nystatin (Nystop Topical Powder) 0 gm TOP BID [facility] Ondansetron HCl (Zofran Inj) 4 mg IVP Q4H PRN PRN Reason: Nausea/Vomiting Last Admin: 04/14/17 12:11 Dose: 4 mg Pantoprazole Sodium (Protonix Ec Tab) 40 mg PO DAILY [facility] Last Admin: 04/17/17 10:17 Dose: 40 mg Sodium Bicarbonate (Sodium Bicarbonate Tab) 1,300 mg PO QID [facility] Last Admin: 04/17/17 14:38 Dose: 1,300 mg Zinc Sulfate (Zinc Sulfate 220 Mg Cap) 220 mg PO DAILY [facility] Last Admin: 04/17/17 10:18 Dose: 220 mg - Labs Labs: 04/17/17 06:30 04/17/17 06:30 PT 13.6 SECONDS (9.4-12.5) H 04/17/17 06:30 INR 1.18 (0.93-1.08) H 04/17/17 06:30 APTT 33.0 Seconds (25.1-36.5) 04/10/17 16:05 Attending/Attestation - Attestation I have personally seen and examined this patient.: Yes I have fully participated in the care of the patient.: Yes I have reviewed all pertinent clinical information, including history, physical exam and plan: Yes
[2017-04-17] MEDS: Nystatin 100,000 Units/gm Topical Pow(15 gm) TOP SCH (17:55)
--- NOTE | 2017-04-17 23:17 | PN ---
DATE: SUBJECTIVE: Courtney is scheduled for right partial second metatarsal resection for , 04/19/2017 at 7:30 a.m. We will hold her heparin on 04/18/2017 and will keep her n.p.o. after dinner on night. The patient was amendable to the procedure. I spoke at length as to the risks and benefits of both long-term antibiotics, IV antibiotics and her kidneys as well as possible nonhealing of her right foot surgery. The patient has been cleared by [facility] for foot surgery, which was determined to be the better course of action by all parties involved at this time. Jose Raymond DPM [facility]
[2017-04-18 09:01] LABS: BASO # 0.01 K/mm3 (0.0-2.0); BASO % 0.2 % (0.0-3.0); EOS % 0.3 % (1.5-5.0); GRAN % 68.7 % (50.0-68.0); HEMOGLOBIN 10.4 g/dL (12.0-16.0); LYMPH # 1.3 (1.2-3.4); LYMPH % 22.7 % (22.0-35.0); MEAN CELL VOLUME 91.1 fl (80.0-105.0); MEAN CORPUSCULAR HEMOGLOBIN 28.8 pg (25.0-35.0); MEAN CORPUSCULAR HGB CONC 31.6 g/dl (31.0-37.0); MEAN PLATELET VOLUME 9.8 fl (7.0-11.0); MONO # 0.5 (0.1-0.6); MONO % 8.1 % (1.0-6.0); RBC 3.61 10^6/uL (3.5-6.1); RED CELL DISTRIBUTION WIDTH 14.7 % (11.5-14.5); WHITE BLOOD COUNT 5.8 10^3/ul (4.5-11.0)
--- NOTE | 2017-04-18 09:19 | CP.PCM.PN ---
<Michele Herrera - Last Filed: 04/18/17 09:58> Subjective - Date & Time of Evaluation Date of Evaluation: 04/18/17 Time of Evaluation: 07:45 - Subjective Subjective: PGY4 GI Follow-up Pt seen and examined bedside still has wtery BM 2-3 daily but decreased in frequency and quantity Denies any abd pain Tolerating diet ROS: 10- point ROS conducted, neg other than above Objective - Vital Signs/Intake and Output Vital Signs (last 24 hours): Temp Pulse Resp BP Pulse Ox 100.7 F H 111 H 20 121/57 L 97 04/18/17 05:54 04/18/17 05:54 04/18/17 05:54 04/18/17 05:54 04/18/17 05:54 Intake and Output: 04/18/17 04/18/17 06:59 18:59 Intake Total 1690 Balance 1690 - Medications Medications: Current Medications Aspirin (Ecotrin) 81 mg PO DAILY [facility] Last Admin: 04/17/17 10:15 Dose: 81 mg Cyanocobalamin (Vitamin B12 1000 Mcg Tab) 500 mcg PO DAILY [facility] Last Admin: 04/17/17 10:18 Dose: 500 mcg Ferrous Sulfate (Feosol) 324 mg PO TID [facility] Last Admin: 04/17/17 17:54 Dose: 324 mg Folic Acid (Folic Acid) 1 mg PO DAILY [facility] Last Admin: 04/17/17 10:15 Dose: 1 mg Heparin Sodium (Porcine) (Heparin) 5,000 units SC Q8 [facility] PRN Reason: Protocol Last Admin: 04/18/17 08:19 Dose: 5,000 units Home Med (Home Med) 1 unit PO DAILY@1200 [facility] Last Admin: 04/17/17 12:21 Dose: 1 unit Sodium Chloride (Sodium Chloride 0.45%) 1,000 mls @ 75 mls/hr IV .[id number] [facility] Last Admin: 04/17/17 09:12 Dose: Not Given Linezolid (Zyvox 600mg/300ml D5w) 600 mg in 300 mls @ 200 mls/hr IVPB Q12 [facility] PRN Reason: Protocol Stop: 04/25/17 10:01 Insulin Human Regular (Humulin R Low) 0 units SC ACHS [facility] PRN Reason: Protocol Last Admin: 04/17/17 21:58 Dose: Not Given Loperamide HCl (Imodium) 2 mg PO BID [facility] Last Admin: 04/17/17 10:17 Dose: 2 mg Megestrol Acetate (Megace) 40 mg PO DAILY [facility] Last Admin: 04/17/17 10:17 Dose: 40 mg Metoprolol Succinate (Toprol Xl) 25 mg PO DAILY [facility] Last Admin: 04/17/17 10:17 Dose: 25 mg Multivitamins/Minerals (Therapeutic-M Tab) 1 tab PO 0800 [facility] Last Admin: 04/17/17 10:17 Dose: 1 tab Mupirocin (Bactroban Ointment) 0 gm TOP BID [facility] Last Admin: 04/17/17 17:53 Dose: 1 unit Nystatin (Nystop Topical Powder) 0 gm TOP BID [facility] Last Admin: 04/17/17 17:55 Dose: 1 applic Ondansetron HCl (Zofran Inj) 4 mg IVP Q4H PRN PRN Reason: Nausea/Vomiting Last Admin: 04/14/17 12:11 Dose: 4 mg Pantoprazole Sodium (Protonix Ec Tab) 40 mg PO DAILY [facility] Last Admin: 04/17/17 10:17 Dose: 40 mg Sodium Bicarbonate (Sodium Bicarbonate Tab) 1,300 mg PO QID [facility] Last Admin: 04/17/17 21:51 Dose: 1,300 mg Zinc Sulfate (Zinc Sulfate 220 Mg Cap) 220 mg PO DAILY [facility] Last Admin: 04/17/17 10:18 Dose: 220 mg - Labs Labs: 04/18/17 08:40 04/17/17 06:30 PT 13.6 SECONDS (9.4-12.5) H 04/17/17 06:30 INR 1.18 (0.93-1.08) H 04/17/17 06:30 APTT 33.0 Seconds (25.1-36.5) 04/10/17 16:05 - Constitutional Appears: Well, No Acute Distress - Head Exam Head Exam: ATRAUMATIC, NORMOCEPHALIC - Eye Exam Eye Exam: Normal appearance - ENT Exam ENT Exam: Mucous Membranes Moist - Neck Exam Neck Exam: Normal Inspection - Respiratory Exam Respiratory Exam: Clear to Ausculation Bilateral, NORMAL BREATHING PATTERN. absent: Rales, Rhonchi, Wheezes, Respiratory Distress - Cardiovascular Exam Cardiovascular Exam: REGULAR RHYTHM, +S1, +S2 - GI/Abdominal Exam GI & Abdominal Exam: Soft, Normal Bowel Sounds. absent: Guarding, Rigid, Tenderness, Organomegaly - Extremities Exam Extremities Exam: absent: Joint Swelling, Pedal Edema - Neurological Exam Neurological Exam: Alert, Awake, Oriented x3 - Psychiatric Exam Psychiatric exam: Normal Affect, Normal Mood - Skin Skin Exam: Normal Color, Warm Assessment and Plan - Assessment and Plan (Free Text) Assessment: Courtney Valadez is a 61F w/ hx of left foot osteomyelitis, peripheral vascular disease, hypertension, CKD, and CAD who presented to [facility] for a bleeding right toe ulcer that was amputated. Consulted for acute on chronic diarrhea, anemia and elevated LFTs Acute on chronic diarrhea, etiology unknown, r/o infectous etiology: culture; c.diff neg, r/o O&P Anemia, r/o GI etiology; 2/2 CKD? Elevated LFTs likely 2/2 zyvox; r/o autoimmune and infectious etiology Plan: -EGD and colonoscopy as an oupt -LFTs trend -hep serology neg, and complete autoimmune w/u pending -s/p 2 unit PRBC -O&P neg, stool pending -continue diet as tolerated -reviewed CT and U/S <Immanuel Gaitan - Last Filed: 04/18/17 18:38> Objective - Vital Signs/Intake and Output Vital Signs (last 24 hours): Temp Pulse Resp BP Pulse Ox 98.5 F 97 H 20 143/63 98 04/18/17 17:56 04/18/17 17:56 04/18/17 17:56 04/18/17 17:56 04/18/17 17:56 Intake and Output: 04/18/17 04/18/17 06:59 18:59 Intake Total 1690 Balance 1690 - Medications Medications: Current Medications Aspirin (Ecotrin) 81 mg PO DAILY [facility] Last Admin: 04/18/17 11:57 Dose: 81 mg Cyanocobalamin (Vitamin B12 1000 Mcg Tab) 500 mcg PO DAILY [facility] Last Admin: 04/18/17 12:32 Dose: 500 mcg Ferrous Sulfate (Feosol) 324 mg PO TID [facility] Last Admin: 04/18/17 15:58 Dose: 324 mg Folic Acid (Folic Acid) 1 mg PO DAILY [facility] Last Admin: 04/18/17 11:59 Dose: 1 mg Heparin Sodium (Porcine) (Heparin) 5,000 units SC Q8 [facility] PRN Reason: Protocol Last Admin: 04/18/17 15:58 Dose: 5,000 units Home Med (Home Med) 1 unit PO DAILY@1200 [facility] Last Admin: 04/18/17 15:59 Dose: Not Given Sodium Chloride (Sodium Chloride 0.45%) 1,000 mls @ 75 mls/hr IV .[id number] [facility] Last Admin: 04/18/17 12:32 Dose: 75 mls/hr Linezolid (Zyvox 600mg/300ml D5w) 600 mg in 300 mls @ 200 mls/hr IVPB Q12 [facility] PRN Reason: Protocol Stop: 04/25/17 10:01 Last Admin: 04/18/17 12:11 Dose: 200 mls/hr Insulin Human Regular (Humulin R Low) 0 units SC ACHS [facility] PRN Reason: Protocol Last Admin: 04/18/17 18:23 Dose: 1 units Loperamide HCl (Imodium) 2 mg PO BID [facility] Last Admin: 04/17/17 10:17 Dose: 2 mg Megestrol Acetate (Megace) 40 mg PO DAILY [facility] Last Admin: 04/18/17 11:59 Dose: 40 mg Metoprolol Succinate (Toprol Xl) 25 mg PO DAILY [facility] Last Admin: 04/18/17 12:14 Dose: 25 mg Multivitamins/Minerals (Therapeutic-M Tab) 1 tab PO 0800 [facility] Last Admin: 04/18/17 11:58 Dose: 1 tab Mupirocin (Bactroban Ointment) 0 gm TOP BID [facility] Last Admin: 04/18/17 11:54 Dose: 1 unit Nystatin (Nystop Topical Powder) 0 gm TOP BID [facility] Last Admin: 04/18/17 12:33 Dose: 1 applic Ondansetron HCl (Zofran Inj) 4 mg IVP Q4H PRN PRN Reason: Nausea/Vomiting Last Admin: 04/14/17 12:11 Dose: 4 mg Pantoprazole Sodium (Protonix Ec Tab) 40 mg PO DAILY [facility] Last Admin: 04/18/17 11:59 Dose: 40 mg Sodium Bicarbonate (Sodium Bicarbonate Tab) 1,300 mg PO QID [facility] Last Admin: 04/18/17 16:00 Dose: 1,300 mg Zinc Sulfate (Zinc Sulfate 220 Mg Cap) 220 mg PO DAILY [facility] Last Admin: 04/18/17 11:59 Dose: 220 mg - Labs Labs: 04/18/17 08:40 04/18/17 08:40 PT 13.6 SECONDS (9.4-12.5) H 04/17/17 06:30 INR 1.18 (0.93-1.08) H 04/17/17 06:30 APTT 33.0 Seconds (25.1-36.5) 04/10/17 16:05 Attending/Attestation - Attestation I have personally seen and examined this patient.: Yes I have fully participated in the care of the patient.: Yes I have reviewed all pertinent clinical information, including history, physical exam and plan: Yes Notes (Text): 04/18/17 18:38 61 year old female with PVD, HTN, CKD, CAD, osteomyelitis with anemia and diarrhea. 1. Diarrhea 2. Anemia Plan: -supportive care -CT reviewed -no overt GI bleeding -consider outpatient endoscopic evaluation, although patient is chronically ill and fraile and may not be the best candidate -going for surgery tomorrow for OM -will sign off at this time
[2017-04-18 09:26] LABS: ALBUMIN 3.1 g/dL (3.0-4.8); CALCIUM 8.8 mg/dL (8.4-10.5)
--- NOTE | 2017-04-18 10:02 | CP.PCM.PN ---
Subjective - Date & Time of Evaluation Date of Evaluation: 04/18/17 Time of Evaluation: 10:00 - Subjective Subjective: RENAL FOLLOW UP no events overnight Assessment: Acute Kidney Injury (N17.9) likely due to pre-renal state, decreased oral intake , dehydration, sepsis: stable Hypernatremia, acidosis Diabetic chronic Kidney Disease (E11.22) Hypertensive Chronic Kidney Disease (I12.9) Chronic Kidney Disease (N18.3) Stage 3 Anemia (D64.9), Secondary Hyperparathyroidism (E21.1), Vit D def, HTN (I12.9) hearing loss, esophageal stenosis, basal cell CA on nasal skin s/p removal right foot osteomyelitis hypokalemia hypomagnesemia Plan Renal function remains stable continue oral bicarbonate dose of ananesp 04/11/17. Hgb remains stable Na stable lytes otherwise stable S: seen and examiend no acute events o/n General Appearance: Comfortable, in no acute respiratory distress, co-operative . thin built Head; Atraumatic, normocephalic ENT: no ulcers EYES: Sclera is anicteric. Neck; supple Lungs: Normal respiratory rate/effort. Breath sounds bilateral equal and clear Heart: s1s2 normal. No rub or gallop. Extremities: no edema No varicose veins. Hand osteoarthritic deformities +. Neurological: Patient is alert, awake and oriented to person, place and time. No focal deficit. Strength bilateral appropriate and equal Skin: Warm and dressing on foot Abdomen: Abdomen is soft. Bowel sounds + Psych: normal insight and normal affect/mood Objective - Vital Signs/Intake and Output Vital Signs (last 24 hours): Temp Pulse Resp BP Pulse Ox 100.7 F H 111 H 20 121/57 L 97 04/18/17 05:54 04/18/17 05:54 04/18/17 05:54 04/18/17 05:54 04/18/17 05:54 Intake and Output: 04/18/17 04/18/17 06:59 18:59 Intake Total 1690 Balance 1690 - Medications Medications: Current Medications Aspirin (Ecotrin) 81 mg PO DAILY [facility] Last Admin: 04/17/17 10:15 Dose: 81 mg Cyanocobalamin (Vitamin B12 1000 Mcg Tab) 500 mcg PO DAILY [facility] Last Admin: 04/17/17 10:18 Dose: 500 mcg Ferrous Sulfate (Feosol) 324 mg PO TID [facility] Last Admin: 04/17/17 17:54 Dose: 324 mg Folic Acid (Folic Acid) 1 mg PO DAILY [facility] Last Admin: 04/17/17 10:15 Dose: 1 mg Heparin Sodium (Porcine) (Heparin) 5,000 units SC Q8 [facility] PRN Reason: Protocol Last Admin: 04/18/17 08:19 Dose: 5,000 units Home Med (Home Med) 1 unit PO DAILY@1200 [facility] Last Admin: 04/17/17 12:21 Dose: 1 unit Sodium Chloride (Sodium Chloride 0.45%) 1,000 mls @ 75 mls/hr IV .[id number] [facility] Last Admin: 04/17/17 09:12 Dose: Not Given Linezolid (Zyvox 600mg/300ml D5w) 600 mg in 300 mls @ 200 mls/hr IVPB Q12 [facility] PRN Reason: Protocol Stop: 04/25/17 10:01 Insulin Human Regular (Humulin R Low) 0 units SC ACHS [facility] PRN Reason: Protocol Last Admin: 04/17/17 21:58 Dose: Not Given Loperamide HCl (Imodium) 2 mg PO BID [facility] Last Admin: 04/17/17 10:17 Dose: 2 mg Megestrol Acetate (Megace) 40 mg PO DAILY [facility] Last Admin: 04/17/17 10:17 Dose: 40 mg Metoprolol Succinate (Toprol Xl) 25 mg PO DAILY [facility] Last Admin: 04/17/17 10:17 Dose: 25 mg Multivitamins/Minerals (Therapeutic-M Tab) 1 tab PO 0800 [facility] Last Admin: 04/17/17 10:17 Dose: 1 tab Mupirocin (Bactroban Ointment) 0 gm TOP BID [facility] Last Admin: 04/17/17 17:53 Dose: 1 unit Nystatin (Nystop Topical Powder) 0 gm TOP BID [facility] Last Admin: 04/17/17 17:55 Dose: 1 applic Ondansetron HCl (Zofran Inj) 4 mg IVP Q4H PRN PRN Reason: Nausea/Vomiting Last Admin: 04/14/17 12:11 Dose: 4 mg Pantoprazole Sodium (Protonix Ec Tab) 40 mg PO DAILY [facility] Last Admin: 04/17/17 10:17 Dose: 40 mg Sodium Bicarbonate (Sodium Bicarbonate Tab) 1,300 mg PO QID [facility] Last Admin: 04/17/17 21:51 Dose: 1,300 mg Zinc Sulfate (Zinc Sulfate 220 Mg Cap) 220 mg PO DAILY [facility] Last Admin: 04/17/17 10:18 Dose: 220 mg - Labs Labs: 04/18/17 08:40 04/18/17 08:40 PT 13.6 SECONDS (9.4-12.5) H 04/17/17 06:30 INR 1.18 (0.93-1.08) H 04/17/17 06:30 APTT 33.0 Seconds (25.1-36.5) 04/10/17 16:05
--- NOTE | 2017-04-18 10:12 | CP.PCM.PN ---
<Asif Newell - Last Filed: 04/18/17 15:48> Subjective - Date & Time of Evaluation Date of Evaluation: 04/18/17 Time of Evaluation: 07:30 - Subjective Subjective: Asif Newell DO PGY1 - IM Progress Note Patient seen and examined at bedside. No acute events overnight. Patient reports still having some diarrhea; nurse reports pasty stools. Patient still feels congested, cough slightly improved. Patient was offered symptomatic treatment for cough and congestion, but she declined. She denies any fever, chills, abdominal pain, chest pain, or shortness of breath. Objective - Vital Signs/Intake and Output Vital Signs (last 24 hours): Temp Pulse Resp BP Pulse Ox 100.7 F H 111 H 20 121/57 L 97 04/18/17 05:54 04/18/17 05:54 04/18/17 05:54 04/18/17 05:54 04/18/17 05:54 Intake and Output: 04/18/17 04/18/17 06:59 18:59 Intake Total 1690 Balance 1690 - Medications Medications: Current Medications Aspirin (Ecotrin) 81 mg PO DAILY [facility] Last Admin: 04/17/17 10:15 Dose: 81 mg Cyanocobalamin (Vitamin B12 1000 Mcg Tab) 500 mcg PO DAILY [facility] Last Admin: 04/17/17 10:18 Dose: 500 mcg Ferrous Sulfate (Feosol) 324 mg PO TID [facility] Last Admin: 04/17/17 17:54 Dose: 324 mg Folic Acid (Folic Acid) 1 mg PO DAILY [facility] Last Admin: 04/17/17 10:15 Dose: 1 mg Heparin Sodium (Porcine) (Heparin) 5,000 units SC Q8 [facility] PRN Reason: Protocol Last Admin: 04/18/17 08:19 Dose: 5,000 units Home Med (Home Med) 1 unit PO DAILY@1200 [facility] Last Admin: 04/17/17 12:21 Dose: 1 unit Sodium Chloride (Sodium Chloride 0.45%) 1,000 mls @ 75 mls/hr IV .[id number] [facility] Last Admin: 04/17/17 09:12 Dose: Not Given Linezolid (Zyvox 600mg/300ml D5w) 600 mg in 300 mls @ 200 mls/hr IVPB Q12 [facility] PRN Reason: Protocol Stop: 04/25/17 10:01 Insulin Human Regular (Humulin R Low) 0 units SC ACHS [facility] PRN Reason: Protocol Last Admin: 04/17/17 21:58 Dose: Not Given Loperamide HCl (Imodium) 2 mg PO BID [facility] Last Admin: 04/17/17 10:17 Dose: 2 mg Megestrol Acetate (Megace) 40 mg PO DAILY [facility] Last Admin: 04/17/17 10:17 Dose: 40 mg Metoprolol Succinate (Toprol Xl) 25 mg PO DAILY [facility] Last Admin: 04/17/17 10:17 Dose: 25 mg Multivitamins/Minerals (Therapeutic-M Tab) 1 tab PO 0800 [facility] Last Admin: 04/17/17 10:17 Dose: 1 tab Mupirocin (Bactroban Ointment) 0 gm TOP BID [facility] Last Admin: 04/17/17 17:53 Dose: 1 unit Nystatin (Nystop Topical Powder) 0 gm TOP BID [facility] Last Admin: 04/17/17 17:55 Dose: 1 applic Ondansetron HCl (Zofran Inj) 4 mg IVP Q4H PRN PRN Reason: Nausea/Vomiting Last Admin: 04/14/17 12:11 Dose: 4 mg Pantoprazole Sodium (Protonix Ec Tab) 40 mg PO DAILY [facility] Last Admin: 04/17/17 10:17 Dose: 40 mg Sodium Bicarbonate (Sodium Bicarbonate Tab) 1,300 mg PO QID [facility] Last Admin: 04/17/17 21:51 Dose: 1,300 mg Zinc Sulfate (Zinc Sulfate 220 Mg Cap) 220 mg PO DAILY [facility] Last Admin: 04/17/17 10:18 Dose: 220 mg - Labs Labs: 04/18/17 08:40 04/18/17 08:40 PT 13.6 SECONDS (9.4-12.5) H 04/17/17 06:30 INR 1.18 (0.93-1.08) H 04/17/17 06:30 APTT 33.0 Seconds (25.1-36.5) 04/10/17 16:05 - Additional Findings Additional findings: - Constitutional Appears: Non-toxic, No Acute Distress, Chronically Ill - Head Exam Head Exam: ATRAUMATIC, NORMOCEPHALIC - Eye Exam Eye Exam: EOMI, Normal appearance, PERRL - ENT Exam ENT Exam: Mucous Membranes Dry - Neck Exam Neck Exam: Normal Inspection - Respiratory Exam Respiratory Exam: Clear to Ausculation Bilateral, NORMAL BREATHING PATTERN - Cardiovascular Exam Cardiovascular Exam: RRR, +S1, +S2 - GI/Abdominal Exam GI & Abdominal Exam: Soft, Normal Bowel Sounds. absent: Rigid, Tenderness - Extremities Exam Extremities Exam: absent: Calf Tenderness, Pedal Edema Additional comments: bilateral feet with dressings in place. CDI - Neurological Exam Neurological Exam: Alert, Awake, Oriented x3 - Psychiatric Exam Psychiatric exam: Normal Affect, Normal Mood - Skin Skin Exam: Dry, Intact Additional comments: Rash over right forearm appears slightly improved Assessment and Plan - Assessment and Plan (Free Text) Assessment: 61F with PMH of Diabetes mellitus type 2, anemia, peripheral arterial disease, GERD, osteomyelitis, esophageal stenosis, hypertension, chronic kidney disease, CAD, and arthritis who presents to the ED from the wound care clinic with Dr. Raymond for osteomyelitis of the right foot. Plan: Osteomyelitis R 2nd metatarsal; initially presented with Sepsis -Per ID, change abx back to Zyvox; monitor for rash -Continue IVF -Wound culture shows Group B Beta Hemolytic Strep -Patient was febrile overnight to 100.7 - Repeat blood cultures show no growth after 48 hours - CXR unremarkable; UA showed small LE, otherwise unremarkable; Urine cultures pending -Per podiatry, patient will go for surgery tomorrow -PT Eval/Treat for gait training and weakness; partial weight bearing -Vascular Surgery consulted - Dr. Najera -ID consulted - Dr. Nair -Podiatry consulted - Dr. Mattson Rash - Improving - Possibly 2/2 Zyvox administration vs hematogenous infection vs bacterial lysis - Repeat blood cultures negative - Per ID, will try Zyvox again and monitor closely Chronic diarrhea - Patient reports one year of chronic watery diarrhea, not associated with any partricular triggers or pattern related to diet - C diff negative - Stool workup pending, per GI - Requested GI consult; appreciate recs Anemia -H&H stable -Continue to monitor FREDY -Likely prerenal, considering septic state; improving, nearly back to baseline -Urine studies pending -Continue IVF hydration and PO hydration -Nephrology consulted (Dr. Reyes), recs appreciated Hypernatremia -Resolved, but patient continues to have multiple causes of hypoosmotic fluid losses -Continue hypoosmotic IVF - 1/2 NS @75cc/hr -Encourage PO water intake Elevated LFTs -Trending down; Continue to monitor -Autoimmune workup pending; per GI -Viral hep panel negative; Abd US and CT A/P showed increased echogenicity, likely fatty liver -GI on consult; appreciate recs Diabetes mellitus type 2 -low dose sliding scale -Consistent carb diet -Fingersticks ACHS CAD -Continue ASA 81mg po daily GI/DVT prophylaxis -Protonix -Heparin Patient seen, discussed, and reviewed with attending Dr. Rodríguez <Jaun Rodríguez - Last Filed: 04/19/17 16:07> Objective - Vital Signs/Intake and Output Vital Signs (last 24 hours): Temp Pulse Resp BP Pulse Ox 97.8 F 64 18 140/87 97 04/19/17 12:00 04/19/17 12:00 04/19/17 12:00 04/19/17 12:00 04/19/17 12:00 Intake and Output: 04/19/17 04/19/17 06:59 18:59 Intake Total 1440 Balance 1440 - Medications Medications: Current Medications Acetaminophen (Tylenol 325mg Tab) 650 mg PO Q6H PRN PRN Reason: Pain, Mild (1-3) Aspirin (Ecotrin) 81 mg PO DAILY [facility] Last Admin: 04/19/17 11:25 Dose: Not Given Cyanocobalamin (Vitamin B12 1000 Mcg Tab) 500 mcg PO DAILY [facility] Last Admin: 04/19/17 11:31 Dose: 500 mcg Ferrous Sulfate (Feosol) 324 mg PO TID [facility] Last Admin: 04/19/17 13:33 Dose: 324 mg Folic Acid (Folic Acid) 1 mg PO DAILY [facility] Last Admin: 04/19/17 11:25 Dose: 1 mg Home Med (Home Med) 1 unit PO DAILY@1200 [facility] Last Admin: 04/19/17 11:25 Dose: Not Given Sodium Chloride (Sodium Chloride 0.45%) 1,000 mls @ 75 mls/hr IV .[id number] [facility] Last Admin: 04/19/17 13:31 Dose: 75 mls/hr Linezolid (Zyvox 600mg/300ml D5w) 600 mg in 300 mls @ 200 mls/hr IVPB Q12 [facility] PRN Reason: Protocol Stop: 04/25/17 10:01 Last Admin: 04/19/17 11:27 Dose: 200 mls/hr Insulin Human Regular (Humulin R Low) 0 units SC ACHS [facility] PRN Reason: Protocol Last Admin: 04/19/17 12:13 Dose: Not Given Loperamide HCl (Imodium) 2 mg PO BID [facility] Last Admin: 04/17/17 10:17 Dose: 2 mg Megestrol Acetate (Megace) 40 mg PO DAILY [facility] Last Admin: 04/19/17 11:24 Dose: 40 mg Metoprolol Succinate (Toprol Xl) 25 mg PO DAILY [facility] Last Admin: 04/19/17 11:23 Dose: 25 mg Multivitamins/Minerals (Therapeutic-M Tab) 1 tab PO 0800 [facility] Last Admin: 04/19/17 11:26 Dose: 1 tab Mupirocin (Bactroban Ointment) 0 gm TOP BID [facility] Last Admin: 04/19/17 12:59 Dose: Not Given Nystatin (Nystop Topical Powder) 0 gm TOP BID [facility] Last Admin: 04/19/17 12:15 Dose: 2 applic Ondansetron HCl (Zofran Inj) 4 mg IVP Q4H PRN PRN Reason: Nausea/Vomiting Last Admin: 04/19/17 13:40 Dose: 4 mg Oxycodone/Acetaminophen (Percocet 5/325 Mg Tab) 1 tab PO Q4H PRN PRN Reason: Pain, moderate (4-7) Stop: 04/22/17 09:01 Oxycodone/Acetaminophen (Percocet 5/325 Mg Tab) 2 tab PO Q4H PRN PRN Reason: Pain, severe (8-10) Stop: 04/22/17 09:01 Pantoprazole Sodium (Protonix Ec Tab) 40 mg PO DAILY [facility] Last Admin: 04/19/17 11:25 Dose: 40 mg Sodium Bicarbonate (Sodium Bicarbonate Tab) 1,300 mg PO QID [facility] Last Admin: 04/19/17 13:33 Dose: 1,300 mg Zinc Sulfate (Zinc Sulfate 220 Mg Cap) 220 mg PO DAILY [facility] Last Admin: 04/19/17 11:24 Dose: 220 mg - Labs Labs: 04/19/17 07:00 04/19/17 07:00 PT 13.6 SECONDS (9.4-12.5) H 04/17/17 06:30 INR 1.18 (0.93-1.08) H 04/17/17 06:30 APTT 33.0 Seconds (25.1-36.5) 04/10/17 16:05 Attending/Attestation - Attestation I have personally seen and examined this patient.: Yes I have fully participated in the care of the patient.: Yes I have reviewed all pertinent clinical information, including history, physical exam and plan: Yes Notes (Text): 04/19/17 16:05 Attending note; Patient seen and examined with resident. Patient is a 61 year old female with history of type 2 diabetes,chronic anemia , chronic diarrhea,peripheral arterial disease, esophageal stenosis, hypertension, chronic kidney disease and arthritis was sent by bookkeeping assistant for evaluation of osteomyelitis of right second metatarsal. She had severe sepsis secondary to osteomyelitis of right foot. Wound culture is growing beta hemolytic group B. Currently on IV zyvox. Plan for resection of the metatarsal. Will follow-up with podiatry. Elevated LFTs ; patient with previous history of fatty liver and mildly elevated LFTs .GI evaluation appreciated. LFT is improving. Patient will need outpatient colonoscopy and further workup for anemia .Hepatitis panel is negative. CT scan revealed fatty infiltration. Upon discharge patient will follow up with Dr. Chavez.
--- NOTE | 2017-04-18 11:46 | CP.PCM.PN ---
Subjective - Date & Time of Evaluation Date of Evaluation: 04/18/17 Time of Evaluation: 10:55 - Subjective Subjective: Comfortable, no fevers. Objective - Vital Signs/Intake and Output Vital Signs (last 24 hours): Temp Pulse Resp BP Pulse Ox 100.7 F H 111 H 20 121/57 L 97 04/18/17 05:54 04/18/17 05:54 04/18/17 05:54 04/18/17 05:54 04/18/17 05:54 Intake and Output: 04/18/17 04/18/17 06:59 18:59 Intake Total 1690 Balance 1690 - Medications Medications: Current Medications Aspirin (Ecotrin) 81 mg PO DAILY [facility] Last Admin: 04/17/17 10:15 Dose: 81 mg Cyanocobalamin (Vitamin B12 1000 Mcg Tab) 500 mcg PO DAILY [facility] Last Admin: 04/17/17 10:18 Dose: 500 mcg Ferrous Sulfate (Feosol) 324 mg PO TID [facility] Last Admin: 04/17/17 17:54 Dose: 324 mg Folic Acid (Folic Acid) 1 mg PO DAILY [facility] Last Admin: 04/17/17 10:15 Dose: 1 mg Heparin Sodium (Porcine) (Heparin) 5,000 units SC Q8 [facility] PRN Reason: Protocol Last Admin: 04/18/17 08:19 Dose: 5,000 units Home Med (Home Med) 1 unit PO DAILY@1200 [facility] Last Admin: 04/17/17 12:21 Dose: 1 unit Sodium Chloride (Sodium Chloride 0.45%) 1,000 mls @ 75 mls/hr IV .[id number] [facility] Last Admin: 04/17/17 09:12 Dose: Not Given Insulin Human Regular (Humulin R Low) 0 units SC ACHS [facility] PRN Reason: Protocol Last Admin: 04/17/17 21:58 Dose: Not Given Loperamide HCl (Imodium) 2 mg PO BID [facility] Last Admin: 04/17/17 10:17 Dose: 2 mg Megestrol Acetate (Megace) 40 mg PO DAILY [facility] Last Admin: 04/17/17 10:17 Dose: 40 mg Metoprolol Succinate (Toprol Xl) 25 mg PO DAILY [facility] Last Admin: 04/17/17 10:17 Dose: 25 mg Multivitamins/Minerals (Therapeutic-M Tab) 1 tab PO 0800 [facility] Last Admin: 04/17/17 10:17 Dose: 1 tab Mupirocin (Bactroban Ointment) 0 gm TOP BID [facility] Last Admin: 04/17/17 17:53 Dose: 1 unit Nystatin (Nystop Topical Powder) 0 gm TOP BID [facility] Last Admin: 04/17/17 17:55 Dose: 1 applic Ondansetron HCl (Zofran Inj) 4 mg IVP Q4H PRN PRN Reason: Nausea/Vomiting Last Admin: 04/14/17 12:11 Dose: 4 mg Pantoprazole Sodium (Protonix Ec Tab) 40 mg PO DAILY [facility] Last Admin: 04/17/17 10:17 Dose: 40 mg Sodium Bicarbonate (Sodium Bicarbonate Tab) 1,300 mg PO QID [facility] Last Admin: 04/17/17 21:51 Dose: 1,300 mg Zinc Sulfate (Zinc Sulfate 220 Mg Cap) 220 mg PO DAILY [facility] Last Admin: 04/17/17 10:18 Dose: 220 mg - Labs Labs: 04/18/17 08:40 04/17/17 06:30 PT 13.6 SECONDS (9.4-12.5) H 04/17/17 06:30 INR 1.18 (0.93-1.08) H 04/17/17 06:30 APTT 33.0 Seconds (25.1-36.5) 04/10/17 16:05 - Constitutional Appears: Non-toxic, Chronically Ill - Head Exam Head Exam: NORMAL INSPECTION - Respiratory Exam Respiratory Exam: Decreased Breath Sounds - Cardiovascular Exam Cardiovascular Exam: +S1, +S2 - GI/Abdominal Exam GI & Abdominal Exam: Soft. absent: Tenderness Assessment and Plan - Assessment and Plan (Free Text) Plan: Assessment severe sepsis due to right foot cellulitis with chronic osteomyelitis history of Acute osteomyelitis of the left foot; growing beta hemolytic strep DM Plan concerned that patient developed rash while on Zyvox and Merrem but rash is improved - will switch Daptomycin to Zyvox and will observe if she still develops rash on it will need 4 weeks with weekly ESR, CRP, CBC, CMP, CPK levels (has had one week of antibiotics already)
[2017-04-18] MEDS: Multivitamin With Minerals Tab PO SCH (11:58)
[2017-04-18] MEDS: Pantoprazole 40 mg EC Tab PO SCH (11:59)
[2017-04-18] MEDS: Linezolid 600 mg in D5W 300 ml 600 MG/300 ML BAG IVPB SCH ×2 (12:11→22:15)
[2017-04-18] MEDS: Metoprolol Succinate 25 mg XL Tab PO SCH (12:14)
[2017-04-18] MEDS: Sodium Chloride 0.45% 1,000 ML IV SCH ×3 (12:32→23:51)
[2017-04-18] MEDS: Insulin Reg-LOW-Coverage SC SCH ×4 (12:33→22:14)
[2017-04-18] MEDS: Nystatin 100,000 Units/gm Topical Pow(15 gm) TOP SCH (12:33)
[2017-04-18] MEDS: VELTASSA 8.4 GM PO SCH (15:59)
[2017-04-19] MEDS ORDERED: Lidocaine 1% Inj (20ml) ONE (07:28)
[2017-04-19] MEDS ORDERED: Bupivacaine 0.5% Inj(30mL) ONE (07:28)
[2017-04-19 07:44] LABS: BASO # 0.01 K/mm3 (0.0-2.0); BASO % 0.2 % (0.0-3.0); EOS # 0.1 (0.0-0.7); EOS % 1.1 % (1.5-5.0); GRAN # 3.48 (1.4-6.5); GRAN % 66.2 % (50.0-68.0); HEMOGLOBIN 11.1 g/dL (12.0-16.0); LYMPH # 1.1 (1.2-3.4); LYMPH % 20.7 % (22.0-35.0); MEAN CELL VOLUME 92.2 fl (80.0-105.0); MEAN CORPUSCULAR HEMOGLOBIN 28.8 pg (25.0-35.0); MEAN CORPUSCULAR HGB CONC 31.3 g/dl (31.0-37.0); MEAN PLATELET VOLUME 10.1 fl (7.0-11.0); MONO # 0.6 (0.1-0.6); MONO % 11.8 % (1.0-6.0); RBC 3.85 10^6/uL (3.5-6.1); RED CELL DISTRIBUTION WIDTH 14.8 % (11.5-14.5); WHITE BLOOD COUNT 5.3 10^3/ul (4.5-11.0)
[2017-04-19] MEDS ORDERED: Lactated Ringer's 1,000 ML IV SCH (07:45)
[2017-04-19 07:49] LABS: ALBUMIN 3.3 g/dL (3.0-4.8); CALCIUM 9.6 mg/dL (8.4-10.5)
[2017-04-19] MEDS ORDERED: Midazolam 2 MG/2 ML VIAL ONE (08:01)
[2017-04-19] MEDS ORDERED: Propofol 10 mg/ml Inj (20 ML) ONE (08:01)
[2017-04-19] MEDS: Insulin Reg-LOW-Coverage SC SCH ×4 (08:59→22:27)
[2017-04-19] MEDS ORDERED: Oxycodone/Acetaminophen 5/325 mg Tab PO PRN ×2 (09:00)
--- NOTE | 2017-04-19 09:08 | PCM.SURG1 ---
Surgeon's Initial Post Op Note - Surgeon's Notes Surgeon: Dr. Jose Raymond DPM Double End Sewer: Dr. Ryan Herrera DPM PGY-1 Type of Anesthesia: IV Sedation, Local Anesthesia Administered By: Dr. Lenore NGUYEN Pre-Operative Diagnosis: Osteomyelitis of the right 2nd metatarsal Operative Findings: See dictation. M: 3-0 vicryl, 4-0 prolene. I: Pre-op: 19 cc of 1:1 mixture of 1% lidocaine plain: 0.5% marcain plain Post-Operative Diagnosis: Same Operation Performed: Partial resection of right 2nd metatarsal Specimen/Specimens Removed: Distal right 2nd metatarsal Estimated Blood Loss: EBL {In ML}: 5 Blood Products Given: N/A Drains Used: No Drains Post-Op Condition: Good Date of Surgery/Procedure: 04/19/17 Time of Surgery/Procedure: 09:00
--- NOTE | 2017-04-19 10:01 | RAD ---
PROCEDURE: Right Foot Radiographs. HISTORY: s/p right foot surgery COMPARISON: 04/10/2017 FINDINGS: BONES: No acute fracture. There is osteotomy at the level of the distal 1st metatarsal with dorsal displacement of the distal digit including the distal phalanx and distal aspect of the proximal phalanx. There is sclerosis of the distal diaphysis of the 1st metatarsal. There is apparent amputation of the 2nd digit at the mid 2nd metatarsal. There is penciling deformity of the distal aspect of the 3rd, 4th and 5th metatarsals possibly due to chronic infection. There is severe osteopenia of the 3rd through 5th phalanges. Postsurgical changes are seen at the base of the 1st metatarsal. The tarsal bones appear intact. JOINTS: Normal. SOFT TISSUES: As above OTHER FINDINGS: None. IMPRESSION: Amputation mid 2nd metatarsal. Osteotomy distal 1st metatarsal/proximal phalanx. Dorsal displacement at osteotomy site. Penciling deformity of distal aspect 3rd through 5th metatarsals, possibly due to chronic osteomyelitis.
--- NOTE | 2017-04-19 10:38 | CP.PCM.PN ---
<Asif Newell - Last Filed: 04/19/17 11:07> Subjective - Date & Time of Evaluation Date of Evaluation: 04/19/17 Time of Evaluation: 10:20 - Subjective Subjective: Asif Newell DO PGY1 - IM Progress Note Patient seen and examined at bedside, immediately postop after podiatric surgery. Patient is awake and alert. No particular complaints. She denies any chest pain, shortness of breath, fever, or chills. She is no longer complaining of dysuria, but does admit to urinary frequency. Objective - Vital Signs/Intake and Output Vital Signs (last 24 hours): Temp Pulse Resp BP Pulse Ox 98 F 79 14 137/62 100 04/19/17 08:58 04/19/17 09:28 04/19/17 09:28 04/19/17 09:28 04/19/17 09:28 Intake and Output: 04/19/17 04/19/17 06:59 18:59 Intake Total 1440 Balance 1440 - Medications Medications: Current Medications Acetaminophen (Tylenol 325mg Tab) 650 mg PO Q6H PRN PRN Reason: Pain, Mild (1-3) Aspirin (Ecotrin) 81 mg PO DAILY [facility] Last Admin: 04/18/17 11:57 Dose: 81 mg Cyanocobalamin (Vitamin B12 1000 Mcg Tab) 500 mcg PO DAILY [facility] Last Admin: 04/18/17 12:32 Dose: 500 mcg Ferrous Sulfate (Feosol) 324 mg PO TID [facility] Last Admin: 04/18/17 19:53 Dose: 324 mg Folic Acid (Folic Acid) 1 mg PO DAILY [facility] Last Admin: 04/18/17 11:59 Dose: 1 mg Home Med (Home Med) 1 unit PO DAILY@1200 [facility] Last Admin: 04/18/17 15:59 Dose: Not Given Sodium Chloride (Sodium Chloride 0.45%) 1,000 mls @ 75 mls/hr IV .[id number] [facility] Last Admin: 04/18/17 23:51 Dose: Not Given Linezolid (Zyvox 600mg/300ml D5w) 600 mg in 300 mls @ 200 mls/hr IVPB Q12 [facility] PRN Reason: Protocol Stop: 04/25/17 10:01 Last Admin: 04/18/17 22:15 Dose: 200 mls/hr Insulin Human Regular (Humulin R Low) 0 units SC ACHS [facility] PRN Reason: Protocol Last Admin: 04/19/17 08:59 Dose: Not Given Loperamide HCl (Imodium) 2 mg PO BID [facility] Last Admin: 04/17/17 10:17 Dose: 2 mg Megestrol Acetate (Megace) 40 mg PO DAILY [facility] Last Admin: 04/18/17 11:59 Dose: 40 mg Metoprolol Succinate (Toprol Xl) 25 mg PO DAILY [facility] Last Admin: 04/18/17 12:14 Dose: 25 mg Multivitamins/Minerals (Therapeutic-M Tab) 1 tab PO 0800 [facility] Last Admin: 04/18/17 11:58 Dose: 1 tab Mupirocin (Bactroban Ointment) 0 gm TOP BID [facility] Last Admin: 04/18/17 19:53 Dose: 1 unit Nystatin (Nystop Topical Powder) 0 gm TOP BID [facility] Last Admin: 04/18/17 12:33 Dose: 1 applic Ondansetron HCl (Zofran Inj) 4 mg IVP Q4H PRN PRN Reason: Nausea/Vomiting Last Admin: 04/14/17 12:11 Dose: 4 mg Oxycodone/Acetaminophen (Percocet 5/325 Mg Tab) 1 tab PO Q4H PRN PRN Reason: Pain, moderate (4-7) Stop: 04/22/17 09:01 Oxycodone/Acetaminophen (Percocet 5/325 Mg Tab) 2 tab PO Q4H PRN PRN Reason: Pain, severe (8-10) Stop: 04/22/17 09:01 Pantoprazole Sodium (Protonix Ec Tab) 40 mg PO DAILY [facility] Last Admin: 04/18/17 11:59 Dose: 40 mg Sodium Bicarbonate (Sodium Bicarbonate Tab) 1,300 mg PO QID [facility] Last Admin: 04/18/17 23:51 Dose: Not Given Zinc Sulfate (Zinc Sulfate 220 Mg Cap) 220 mg PO DAILY [facility] Last Admin: 04/18/17 11:59 Dose: 220 mg - Labs Labs: 04/19/17 07:00 04/19/17 07:00 PT 13.6 SECONDS (9.4-12.5) H 04/17/17 06:30 INR 1.18 (0.93-1.08) H 04/17/17 06:30 APTT 33.0 Seconds (25.1-36.5) 04/10/17 16:05 - Additional Findings Additional findings: - Constitutional Appears: Non-toxic, No Acute Distress, Chronically Ill - Head Exam Head Exam: ATRAUMATIC, NORMOCEPHALIC - Eye Exam Eye Exam: EOMI, Normal appearance, PERRL - ENT Exam ENT Exam: Mucous Membranes Dry - Neck Exam Neck Exam: Normal Inspection - Respiratory Exam Respiratory Exam: Clear to Ausculation Bilateral, NORMAL BREATHING PATTERN - Cardiovascular Exam Cardiovascular Exam: RRR, +S1, +S2 - GI/Abdominal Exam GI & Abdominal Exam: Soft, Normal Bowel Sounds. absent: Rigid, Tenderness - Extremities Exam Extremities Exam: absent: Calf Tenderness, Pedal Edema Additional comments: bilateral feet with dressings in place. CDI - Neurological Exam Neurological Exam: Alert, Awake, Oriented x3 - Psychiatric Exam Psychiatric exam: Normal Affect, Normal Mood - Skin Skin Exam: Dry, Intact Additional comments: Rash continually improving Assessment and Plan - Assessment and Plan (Free Text) Assessment: 61F with PMH of Diabetes mellitus type 2, anemia, peripheral arterial disease, GERD, osteomyelitis, esophageal stenosis, hypertension, chronic kidney disease, CAD, and arthritis who presents to the ED from the wound care clinic with Dr. Raymond for osteomyelitis of the right foot. Now s/p R 2nd metatarsal partial resection Plan: Osteomyelitis R 2nd metatarsal; initially presented with Sepsis -Per ID, continue Zyvox; No worsening of rash; Continue to monitor LFTs -Continue IVF -Wound culture shows Group B Beta Hemolytic Strep -Afebrile since yesterday; no leukocytosis - Repeat blood cultures show no growth after 3 days - CXR unremarkable; UA showed small LE, otherwise unremarkable; Urine cultures show Klebsiella ozenesa -Patient is now s/p R 2nd metatarsal partial resection; will discuss with podiatry and ID -PT Eval/Treat for gait training and weakness; partial weight bearing -Vascular Surgery consulted - Dr. Najera -ID consulted - Dr. Nair -Podiatry consulted - Dr. Mattson Rash - Improving - Possibly 2/2 Zyvox administration vs hematogenous infection vs bacterial lysis - Repeat blood cultures negative - Per ID, will try Zyvox again and monitor closely Chronic diarrhea - Patient reports one year of chronic watery diarrhea, not associated with any partricular triggers or pattern related to diet - C diff negative - Stool workup pending, per GI - Requested GI consult; appreciate recs Anemia -H&H stable -Continue to monitor FREDY -Likely prerenal, considering septic state; improving, nearly back to baseline -Urine studies pending -Continue IVF hydration and PO hydration -Nephrology consulted (Dr. Reyes), recs appreciated Hypernatremia -Resolved, but patient continues to have multiple causes of hypoosmotic fluid losses -Continue hypoosmotic IVF - 1/2 NS @75cc/hr -Encourage PO water intake Elevated LFTs -Fluctuating; Continue to monitor -Autoimmune workup pending; per GI -Viral hep panel negative; Abd US and CT A/P showed increased echogenicity, likely fatty liver -GI on consult; appreciate recs Diabetes mellitus type 2 -low dose sliding scale -Consistent carb diet -Fingersticks ACHS CAD -Continue ASA 81mg po daily GI/DVT prophylaxis -Protonix -Heparin Patient seen, discussed, and reviewed with attending Dr. Rodríguez <Jaun Rodríguez - Last Filed: 04/19/17 16:10> Objective - Vital Signs/Intake and Output Vital Signs (last 24 hours): Temp Pulse Resp BP Pulse Ox 97.8 F 87 18 140/87 97 04/19/17 12:00 04/19/17 14:00 04/19/17 12:00 04/19/17 12:00 04/19/17 12:00 Intake and Output: 04/19/17 04/19/17 06:59 18:59 Intake Total 1440 Balance 1440 - Medications Medications: Current Medications Acetaminophen (Tylenol 325mg Tab) 650 mg PO Q6H PRN PRN Reason: Pain, Mild (1-3) Aspirin (Ecotrin) 81 mg PO DAILY [facility] Last Admin: 04/19/17 11:25 Dose: Not Given Cyanocobalamin (Vitamin B12 1000 Mcg Tab) 500 mcg PO DAILY [facility] Last Admin: 04/19/17 11:31 Dose: 500 mcg Ferrous Sulfate (Feosol) 324 mg PO TID [facility] Last Admin: 04/19/17 13:33 Dose: 324 mg Folic Acid (Folic Acid) 1 mg PO DAILY [facility] Last Admin: 04/19/17 11:25 Dose: 1 mg Home Med (Home Med) 1 unit PO DAILY@1200 [facility] Last Admin: 04/19/17 11:25 Dose: Not Given Sodium Chloride (Sodium Chloride 0.45%) 1,000 mls @ 75 mls/hr IV .[id number] [facility] Last Admin: 04/19/17 13:31 Dose: 75 mls/hr Linezolid (Zyvox 600mg/300ml D5w) 600 mg in 300 mls @ 200 mls/hr IVPB Q12 [facility] PRN Reason: Protocol Stop: 04/25/17 10:01 Last Admin: 04/19/17 11:27 Dose: 200 mls/hr Insulin Human Regular (Humulin R Low) 0 units SC ACHS [facility] PRN Reason: Protocol Last Admin: 04/19/17 12:13 Dose: Not Given Loperamide HCl (Imodium) 2 mg PO BID [facility] Last Admin: 04/17/17 10:17 Dose: 2 mg Megestrol Acetate (Megace) 40 mg PO DAILY [facility] Last Admin: 04/19/17 11:24 Dose: 40 mg Metoprolol Succinate (Toprol Xl) 25 mg PO DAILY [facility] Last Admin: 04/19/17 11:23 Dose: 25 mg Multivitamins/Minerals (Therapeutic-M Tab) 1 tab PO 0800 [facility] Last Admin: 04/19/17 11:26 Dose: 1 tab Mupirocin (Bactroban Ointment) 0 gm TOP BID [facility] Last Admin: 04/19/17 12:59 Dose: Not Given Nystatin (Nystop Topical Powder) 0 gm TOP BID [facility] Last Admin: 04/19/17 12:15 Dose: 2 applic Ondansetron HCl (Zofran Inj) 4 mg IVP Q4H PRN PRN Reason: Nausea/Vomiting Last Admin: 04/19/17 13:40 Dose: 4 mg Oxycodone/Acetaminophen (Percocet 5/325 Mg Tab) 1 tab PO Q4H PRN PRN Reason: Pain, moderate (4-7) Stop: 04/22/17 09:01 Oxycodone/Acetaminophen (Percocet 5/325 Mg Tab) 2 tab PO Q4H PRN PRN Reason: Pain, severe (8-10) Stop: 04/22/17 09:01 Pantoprazole Sodium (Protonix Ec Tab) 40 mg PO DAILY [facility] Last Admin: 04/19/17 11:25 Dose: 40 mg Sodium Bicarbonate (Sodium Bicarbonate Tab) 1,300 mg PO QID [facility] Last Admin: 04/19/17 13:33 Dose: 1,300 mg Zinc Sulfate (Zinc Sulfate 220 Mg Cap) 220 mg PO DAILY [facility] Last Admin: 04/19/17 11:24 Dose: 220 mg - Labs Labs: 04/19/17 07:00 04/19/17 07:00 PT 13.6 SECONDS (9.4-12.5) H 04/17/17 06:30 INR 1.18 (0.93-1.08) H 04/17/17 06:30 APTT 33.0 Seconds (25.1-36.5) 04/10/17 16:05 Attending/Attestation - Attestation I have personally seen and examined this patient.: Yes I have fully participated in the care of the patient.: Yes I have reviewed all pertinent clinical information, including history, physical exam and plan: Yes Notes (Text): 04/19/17 16:07 Attending note; Patient seen and examined with resident. Patient is a 61 year old female with history of type 2 diabetes,chronic anemia , chronic diarrhea,peripheral arterial disease, esophageal stenosis, hypertension, chronic kidney disease and arthritis was sent by freight tallier for evaluation of osteomyelitis of right second metatarsal. She had severe sepsis secondary to osteomyelitis of right foot. Wound culture is growing beta hemolytic group B. Currently on IV zyvox. Plan for resection of the metatarsal today. Will follow- up with podiatry. Elevated LFTs ; patient with previous history of fatty liver and mildly elevated LFTs .GI evaluation appreciated. Patient will need outpatient colonoscopy and further workup for anemia .Hepatitis panel is negative. CT scan revealed fatty infiltration. Upon discharge patient will follow up with Dr. Chavez. 04/19/17 16:09
[2017-04-19] MEDS: Metoprolol Succinate 25 mg XL Tab PO SCH (11:23)
[2017-04-19] MEDS: VELTASSA 8.4 GM PO SCH (11:25)
[2017-04-19] MEDS: Pantoprazole 40 mg EC Tab PO SCH (11:25)
[2017-04-19] MEDS: Multivitamin With Minerals Tab PO SCH (11:26)
[2017-04-19] MEDS: Linezolid 600 mg in D5W 300 ml 600 MG/300 ML BAG IVPB SCH ×2 (11:27→21:25)
[2017-04-19] MEDS: Nystatin 100,000 Units/gm Topical Pow(15 gm) TOP SCH ×2 (12:15→17:41)
[2017-04-19] MEDS: Sodium Chloride 0.45% 1,000 ML IV SCH (13:31)
--- NOTE | 2017-04-19 14:30 | CP.PCM.PN ---
Subjective - Date & Time of Evaluation Date of Evaluation: 04/19/17 Time of Evaluation: 14:29 - Subjective Subjective: RENAL FOLLOW UP no events overnight Assessment: Acute Kidney Injury (N17.9) likely due to pre-renal state, decreased oral intake , dehydration, sepsis: stable Hypernatremia, acidosis Diabetic chronic Kidney Disease (E11.22) Hypertensive Chronic Kidney Disease (I12.9) Chronic Kidney Disease (N18.3) Stage 3 Anemia (D64.9), Secondary Hyperparathyroidism (E21.1), Vit D def, HTN (I12.9) hearing loss, esophageal stenosis right foot osteomyelitis hypokalemia hypomagnesemia Plan Renal function remains stable continue fluids for hypernatremia continue po bicarb dose of ananesp 04/11/17. Hgb remains stable lytes otherwise stable S: seen and examiend no acute events o/n post op from right toe surgery General Appearance: Comfortable, in no acute respiratory distress, co-operative . thin built Head; Atraumatic, normocephalic ENT: no ulcers EYES: Sclera is anicteric. Neck; supple Lungs: Normal respiratory rate/effort. Breath sounds bilateral equal and clear Heart: s1s2 normal. No rub or gallop. Extremities: no edema No varicose veins. Hand osteoarthritic deformities +. Neurological: Patient is alert, awake and oriented to person, place and time. No focal deficit. Strength bilateral appropriate and equal Skin: Warm and dressing on foot right Abdomen: Abdomen is soft. Bowel sounds + Psych: normal insight and normal affect/mood Objective - Vital Signs/Intake and Output Vital Signs (last 24 hours): Temp Pulse Resp BP Pulse Ox 97.8 F 64 18 140/87 97 04/19/17 12:00 04/19/17 12:00 04/19/17 12:00 04/19/17 12:00 04/19/17 12:00 Intake and Output: 04/19/17 04/19/17 06:59 18:59 Intake Total 1440 Balance 1440 - Medications Medications: Current Medications Acetaminophen (Tylenol 325mg Tab) 650 mg PO Q6H PRN PRN Reason: Pain, Mild (1-3) Aspirin (Ecotrin) 81 mg PO DAILY [facility] Last Admin: 04/19/17 11:25 Dose: Not Given Cyanocobalamin (Vitamin B12 1000 Mcg Tab) 500 mcg PO DAILY [facility] Last Admin: 04/19/17 11:31 Dose: 500 mcg Ferrous Sulfate (Feosol) 324 mg PO TID [facility] Last Admin: 04/19/17 13:33 Dose: 324 mg Folic Acid (Folic Acid) 1 mg PO DAILY [facility] Last Admin: 04/19/17 11:25 Dose: 1 mg Home Med (Home Med) 1 unit PO DAILY@1200 [facility] Last Admin: 04/19/17 11:25 Dose: Not Given Sodium Chloride (Sodium Chloride 0.45%) 1,000 mls @ 75 mls/hr IV .[id number] [facility] Last Admin: 04/19/17 13:31 Dose: 75 mls/hr Linezolid (Zyvox 600mg/300ml D5w) 600 mg in 300 mls @ 200 mls/hr IVPB Q12 [facility] PRN Reason: Protocol Stop: 04/25/17 10:01 Last Admin: 04/19/17 11:27 Dose: 200 mls/hr Insulin Human Regular (Humulin R Low) 0 units SC ACHS [facility] PRN Reason: Protocol Last Admin: 04/19/17 12:13 Dose: Not Given Loperamide HCl (Imodium) 2 mg PO BID [facility] Last Admin: 04/17/17 10:17 Dose: 2 mg Megestrol Acetate (Megace) 40 mg PO DAILY [facility] Last Admin: 04/19/17 11:24 Dose: 40 mg Metoprolol Succinate (Toprol Xl) 25 mg PO DAILY [facility] Last Admin: 04/19/17 11:23 Dose: 25 mg Multivitamins/Minerals (Therapeutic-M Tab) 1 tab PO 0800 [facility] Last Admin: 04/19/17 11:26 Dose: 1 tab Mupirocin (Bactroban Ointment) 0 gm TOP BID [facility] Last Admin: 04/19/17 12:59 Dose: Not Given Nystatin (Nystop Topical Powder) 0 gm TOP BID [facility] Last Admin: 04/19/17 12:15 Dose: 2 applic Ondansetron HCl (Zofran Inj) 4 mg IVP Q4H PRN PRN Reason: Nausea/Vomiting Last Admin: 04/19/17 13:40 Dose: 4 mg Oxycodone/Acetaminophen (Percocet 5/325 Mg Tab) 1 tab PO Q4H PRN PRN Reason: Pain, moderate (4-7) Stop: 02/11/18 09:01 Oxycodone/Acetaminophen (Percocet 5/325 Mg Tab) 2 tab PO Q4H PRN PRN Reason: Pain, severe (8-10) Stop: 04/22/17 09:01 Pantoprazole Sodium (Protonix Ec Tab) 40 mg PO DAILY [facility] Last Admin: 04/19/17 11:25 Dose: 40 mg Sodium Bicarbonate (Sodium Bicarbonate Tab) 1,300 mg PO QID [facility] Last Admin: 04/19/17 13:33 Dose: 1,300 mg Zinc Sulfate (Zinc Sulfate 220 Mg Cap) 220 mg PO DAILY [facility] Last Admin: 04/19/17 11:24 Dose: 220 mg - Labs Labs: 04/19/17 07:00 04/19/17 07:00 PT 13.6 SECONDS (9.4-12.5) H 04/17/17 06:30 INR 1.18 (0.93-1.08) H 04/17/17 06:30 APTT 33.0 Seconds (25.1-36.5) 04/10/17 16:05
--- NOTE | 2017-04-19 18:24 | CP.PCM.PN ---
Subjective - Date & Time of Evaluation Date of Evaluation: 04/19/17 Time of Evaluation: 10:55 - Subjective Subjective: Comfortable, no fevers. Objective - Vital Signs/Intake and Output Vital Signs (last 24 hours): Temp Pulse Resp BP Pulse Ox 98.2 F 104 H 20 146/67 97 04/19/17 07:40 04/19/17 07:40 04/19/17 07:40 04/19/17 07:40 04/19/17 07:40 Intake and Output: 04/19/17 04/19/17 06:59 18:59 Intake Total 1440 Balance 1440 - Medications Medications: Current Medications Acetaminophen (Tylenol 325mg Tab) 650 mg PO Q6H PRN PRN Reason: Pain, Mild (1-3) Aspirin (Ecotrin) 81 mg PO DAILY [facility] Last Admin: 04/18/17 11:57 Dose: 81 mg Cyanocobalamin (Vitamin B12 1000 Mcg Tab) 500 mcg PO DAILY [facility] Last Admin: 04/18/17 12:32 Dose: 500 mcg Ferrous Sulfate (Feosol) 324 mg PO TID [facility] Last Admin: 04/18/17 19:53 Dose: 324 mg Folic Acid (Folic Acid) 1 mg PO DAILY [facility] Last Admin: 04/18/17 11:59 Dose: 1 mg Home Med (Home Med) 1 unit PO DAILY@1200 [facility] Last Admin: 04/18/17 15:59 Dose: Not Given Sodium Chloride (Sodium Chloride 0.45%) 1,000 mls @ 75 mls/hr IV .[id number] [facility] Last Admin: 04/18/17 23:51 Dose: Not Given Linezolid (Zyvox 600mg/300ml D5w) 600 mg in 300 mls @ 200 mls/hr IVPB Q12 [facility] PRN Reason: Protocol Stop: 04/25/17 10:01 Last Admin: 04/18/17 22:15 Dose: 200 mls/hr Lactated Ringer's (Lactated Ringer's) 1,000 mls @ 75 mls/hr IV .[id number] [facility] Stop: 04/19/17 09:46 Insulin Human Regular (Humulin R Low) 0 units SC ACHS [facility] PRN Reason: Protocol Last Admin: 04/19/17 08:59 Dose: Not Given Loperamide HCl (Imodium) 2 mg PO BID [facility] Last Admin: 04/17/17 10:17 Dose: 2 mg Megestrol Acetate (Megace) 40 mg PO DAILY [facility] Last Admin: 04/18/17 11:59 Dose: 40 mg Metoprolol Succinate (Toprol Xl) 25 mg PO DAILY [facility] Last Admin: 04/18/17 12:14 Dose: 25 mg Multivitamins/Minerals (Therapeutic-M Tab) 1 tab PO 0800 [facility] Last Admin: 04/18/17 11:58 Dose: 1 tab Mupirocin (Bactroban Ointment) 0 gm TOP BID [facility] Last Admin: 04/18/17 19:53 Dose: 1 unit Nystatin (Nystop Topical Powder) 0 gm TOP BID [facility] Last Admin: 04/18/17 12:33 Dose: 1 applic Ondansetron HCl (Zofran Inj) 4 mg IVP Q4H PRN PRN Reason: Nausea/Vomiting Last Admin: 04/14/17 12:11 Dose: 4 mg Oxycodone/Acetaminophen (Percocet 5/325 Mg Tab) 1 tab PO Q4H PRN PRN Reason: Pain, moderate (4-7) Stop: 04/22/17 09:01 Oxycodone/Acetaminophen (Percocet 5/325 Mg Tab) 2 tab PO Q4H PRN PRN Reason: Pain, severe (8-10) Stop: 04/22/17 09:01 Pantoprazole Sodium (Protonix Ec Tab) 40 mg PO DAILY [facility] Last Admin: 04/18/17 11:59 Dose: 40 mg Sodium Bicarbonate (Sodium Bicarbonate Tab) 1,300 mg PO QID [facility] Last Admin: 04/18/17 23:51 Dose: Not Given Zinc Sulfate (Zinc Sulfate 220 Mg Cap) 220 mg PO DAILY [facility] Last Admin: 04/18/17 11:59 Dose: 220 mg - Labs Labs: 04/19/17 07:00 04/19/17 07:00 PT 13.6 SECONDS (9.4-12.5) H 04/17/17 06:30 INR 1.18 (0.93-1.08) H 04/17/17 06:30 APTT 33.0 Seconds (25.1-36.5) 04/10/17 16:05 - Constitutional Appears: Non-toxic - Head Exam Head Exam: NORMAL INSPECTION - ENT Exam ENT Exam: Mucous Membranes Moist - Neck Exam Neck Exam: absent: Meningismus - Respiratory Exam Respiratory Exam: Decreased Breath Sounds - Cardiovascular Exam Cardiovascular Exam: +S1, +S2 - GI/Abdominal Exam GI & Abdominal Exam: Soft. absent: Tenderness Assessment and Plan - Assessment and Plan (Free Text) Plan: Assessment severe sepsis due to right foot cellulitis with chronic osteomyelitis S/P partial resection POD #1 history of Acute osteomyelitis of the left foot; growing beta hemolytic strep DM Plan concerned that patient developed rash while on Zyvox and Merrem but rash is improved - will continue Zyvox and continue to observe if she still develops rash on it will need 4 weeks with weekly ESR, CRP, CBC, CMP, CPK levels (has had one week of antibiotics already)
[2017-04-20] MEDS: Sodium Chloride 0.45% 1,000 ML IV SCH (04:56)
[2017-04-20 07:30] LABS: BASO # 0.02 K/mm3 (0.0-2.0); BASO % 0.3 % (0.0-3.0); EOS # 0.1 (0.0-0.7); GRAN # 4.49 (1.4-6.5); GRAN % 65.6 % (50.0-68.0); LYMPH # 1.5 (1.2-3.4); LYMPH % 22.2 % (22.0-35.0); MEAN CORPUSCULAR HEMOGLOBIN 28.6 pg (25.0-35.0); MEAN CORPUSCULAR HGB CONC 30.7 g/dl (31.0-37.0); MEAN PLATELET VOLUME 10.5 fl (7.0-11.0); MONO # 0.8 (0.1-0.6); MONO % 10.9 % (1.0-6.0); RBC 3.85 10^6/uL (3.5-6.1); RED CELL DISTRIBUTION WIDTH 14.9 % (11.5-14.5); WHITE BLOOD COUNT 6.9 10^3/ul (4.5-11.0)
[2017-04-20 07:45] LABS: ALBUMIN 3.5 g/dL (3.0-4.8); CALCIUM 9.9 mg/dL (8.4-10.5)
[2017-04-20] MEDS: Insulin Reg-LOW-Coverage SC SCH ×3 (08:14→16:52)
[2017-04-20] MEDS: Multivitamin With Minerals Tab PO SCH (08:20)
[2017-04-20] MEDS ORDERED: Vitamins A & D Oint UD Foilpak TOP PRN (08:35)
--- NOTE | 2017-04-20 10:08 | CP.PCM.PN ---
Subjective - Date & Time of Evaluation Date of Evaluation: 04/20/17 Time of Evaluation: 10:07 - Subjective Subjective: RENAL FOLLOW UP no events overnight Assessment: Acute Kidney Injury (N17.9) l Hypernatremia, acidosis Diabetic chronic Kidney Disease (E11.22) Hypertensive Chronic Kidney Disease (I12.9) Chronic Kidney Disease (N18.3) Stage 3 Anemia (D64.9), Secondary Hyperparathyroidism (E21.1), Vit D def, HTN (I12.9) hearing loss, esophageal stenosis right foot osteomyelitis hypokalemia hypomagnesemia Plan Renal function remains stable con1/2 ns, encourage free water continue po bicarb dose of ananesp 04/11/17. Hgb remains stable lytes otherwise stable S: seen and examiend no acute events, pain well controlled General Appearance: Comfortable, in no acute respiratory distress, co-operative . thin built Head; Atraumatic, normocephalic ENT: no ulcers EYES: Sclera is anicteric. Neck; supple Lungs: Normal respiratory rate/effort. Breath sounds bilateral equal and clear Heart: s1s2 normal. No rub or gallop. Extremities: no edema No varicose veins. Hand osteoarthritic deformities +. Neurological: Patient is alert, awake and oriented to person, place and time. No focal deficit. Strength bilateral appropriate and equal Skin: Warm and dressing on foot right Abdomen: Abdomen is soft. Bowel sounds + Psych: normal insight and normal affect/mood Objective - Vital Signs/Intake and Output Vital Signs (last 24 hours): Temp Pulse Resp BP Pulse Ox 97.9 F 89 20 135/69 98 04/20/17 06:00 04/20/17 06:00 04/20/17 06:00 04/20/17 06:00 04/20/17 06:00 Intake and Output: 04/20/17 04/20/17 06:59 18:59 Intake Total 1140 Balance 1140 - Medications Medications: Current Medications Acetaminophen (Tylenol 325mg Tab) 650 mg PO Q6H PRN PRN Reason: Pain, Mild (1-3) Aspirin (Ecotrin) 81 mg PO DAILY [facility] Last Admin: 04/19/17 11:25 Dose: Not Given Benzonatate (Tessalon Perles) 100 mg PO TID PRN PRN Reason: cough Cyanocobalamin (Vitamin B12 1000 Mcg Tab) 500 mcg PO DAILY [facility] Last Admin: 04/19/17 11:31 Dose: 500 mcg Ferrous Sulfate (Feosol) 324 mg PO TID [facility] Last Admin: 04/19/17 17:38 Dose: 324 mg Folic Acid (Folic Acid) 1 mg PO DAILY [facility] Last Admin: 04/19/17 11:25 Dose: 1 mg Home Med (Home Med) 1 unit PO DAILY@1200 [facility] Last Admin: 04/19/17 11:25 Dose: Not Given Sodium Chloride (Sodium Chloride 0.45%) 1,000 mls @ 75 mls/hr IV .[id number] [facility] Last Admin: 04/20/17 04:56 Dose: 75 mls/hr Linezolid (Zyvox 600mg/300ml D5w) 600 mg in 300 mls @ 200 mls/hr IVPB Q12 [facility] PRN Reason: Protocol Stop: 04/25/17 10:01 Last Admin: 04/19/17 21:25 Dose: 200 mls/hr Insulin Human Regular (Humulin R Low) 0 units SC ACHS [facility] PRN Reason: Protocol Last Admin: 04/20/17 08:14 Dose: Not Given Loperamide HCl (Imodium) 2 mg PO BID [facility] Last Admin: 04/17/17 10:17 Dose: 2 mg Megestrol Acetate (Megace) 40 mg PO DAILY [facility] Last Admin: 04/19/17 11:24 Dose: 40 mg Metoprolol Succinate (Toprol Xl) 25 mg PO DAILY [facility] Last Admin: 04/19/17 11:23 Dose: 25 mg Multivitamins/Minerals (Therapeutic-M Tab) 1 tab PO 0800 [facility] Last Admin: 04/20/17 08:20 Dose: 1 tab Mupirocin (Bactroban Ointment) 0 gm TOP BID [facility] Last Admin: 04/19/17 17:39 Dose: Not Given Nystatin (Nystop Topical Powder) 0 gm TOP BID [facility] Last Admin: 04/19/17 17:41 Dose: 2 applic Ondansetron HCl (Zofran Inj) 4 mg IVP Q4H PRN PRN Reason: Nausea/Vomiting Last Admin: 04/19/17 13:40 Dose: 4 mg Oxycodone/Acetaminophen (Percocet 5/325 Mg Tab) 1 tab PO Q4H PRN PRN Reason: Pain, moderate (4-7) Stop: 04/22/17 09:01 Oxycodone/Acetaminophen (Percocet 5/325 Mg Tab) 2 tab PO Q4H PRN PRN Reason: Pain, severe (8-10) Stop: 04/22/17 09:01 Pantoprazole Sodium (Protonix Ec Tab) 40 mg PO DAILY [facility] Last Admin: 04/19/17 11:25 Dose: 40 mg Sodium Bicarbonate (Sodium Bicarbonate Tab) 1,300 mg PO QID [facility] Last Admin: 04/19/17 21:24 Dose: 1,300 mg Vitamin A (Vitamin A & D Oint Ud Foilpak) 1 ea TOP Q8 PRN PRN Reason: Moisture Zinc Sulfate (Zinc Sulfate 220 Mg Cap) 220 mg PO DAILY [facility] Last Admin: 04/19/17 11:24 Dose: 220 mg - Labs Labs: 04/20/17 07:00 04/20/17 07:00 PT 13.6 SECONDS (9.4-12.5) H 04/17/17 06:30 INR 1.18 (0.93-1.08) H 04/17/17 06:30 APTT 33.0 Seconds (25.1-36.5) 04/10/17 16:05
[2017-04-20] MEDS: Metoprolol Succinate 25 mg XL Tab PO SCH (10:39)
[2017-04-20] MEDS: Pantoprazole 40 mg EC Tab PO SCH (10:40)
[2017-04-20] MEDS: Linezolid 600 mg in D5W 300 ml 600 MG/300 ML BAG IVPB SCH ×2 (10:41→22:01)
--- NOTE | 2017-04-20 11:17 | CP.PCM.PN ---
<Ryan Herrera - Last Filed: 04/20/17 11:12> Subjective - Date & Time of Evaluation Date of Evaluation: 04/20/17 Time of Evaluation: 11:13 - Subjective Subjective: 61 year old female patient seen and evaluated at bedside 1 day s/p right 2nd metatarsal resection. Patient reports of no acute overnight events. Patient denies of any pain to her right foot today. Denies of any F/N/V/C/SOB/CP/ headache. Denies of having any other pedal complains at this time. Objective - Vital Signs/Intake and Output Vital Signs (last 24 hours): Temp Pulse Resp BP Pulse Ox 97.9 F 89 20 135/69 98 04/20/17 06:00 04/20/17 10:39 04/20/17 06:00 04/20/17 10:39 04/20/17 06:00 Intake and Output: 04/20/17 04/20/17 06:59 18:59 Intake Total 1140 Balance 1140 - Medications Medications: Current Medications Acetaminophen (Tylenol 325mg Tab) 650 mg PO Q6H PRN PRN Reason: Pain, Mild (1-3) Aspirin (Ecotrin) 81 mg PO DAILY [facility] Last Admin: 04/20/17 10:39 Dose: 81 mg Benzonatate (Tessalon Perles) 100 mg PO TID PRN PRN Reason: cough Last Admin: 04/20/17 10:39 Dose: 100 mg Cyanocobalamin (Vitamin B12 1000 Mcg Tab) 500 mcg PO DAILY [facility] Last Admin: 04/20/17 10:40 Dose: 500 mcg Ferrous Sulfate (Feosol) 324 mg PO TID [facility] Last Admin: 04/20/17 10:41 Dose: 324 mg Folic Acid (Folic Acid) 1 mg PO DAILY [facility] Last Admin: 04/20/17 10:41 Dose: 1 mg Home Med (Home Med) 1 unit PO DAILY@1200 [facility] Last Admin: 04/19/17 11:25 Dose: Not Given Sodium Chloride (Sodium Chloride 0.45%) 1,000 mls @ 75 mls/hr IV .[id number] [facility] Last Admin: 04/20/17 04:56 Dose: 75 mls/hr Linezolid (Zyvox 600mg/300ml D5w) 600 mg in 300 mls @ 200 mls/hr IVPB Q12 [facility] PRN Reason: Protocol Stop: 04/25/17 10:01 Last Admin: 04/20/17 10:41 Dose: 200 mls/hr Insulin Human Regular (Humulin R Low) 0 units SC ACHS [facility] PRN Reason: Protocol Last Admin: 04/20/17 08:14 Dose: Not Given Loperamide HCl (Imodium) 2 mg PO BID [facility] Last Admin: 04/17/17 10:17 Dose: 2 mg Megestrol Acetate (Megace) 40 mg PO DAILY [facility] Last Admin: 04/20/17 10:40 Dose: 40 mg Metoprolol Succinate (Toprol Xl) 25 mg PO DAILY [facility] Last Admin: 04/20/17 10:39 Dose: 25 mg Multivitamins/Minerals (Therapeutic-M Tab) 1 tab PO 0800 [facility] Last Admin: 04/20/17 08:20 Dose: 1 tab Mupirocin (Bactroban Ointment) 0 gm TOP BID [facility] Last Admin: 04/20/17 10:26 Dose: 2 unit Nystatin (Nystop Topical Powder) 0 gm TOP BID [facility] Last Admin: 04/19/17 17:41 Dose: 2 applic Ondansetron HCl (Zofran Inj) 4 mg IVP Q4H PRN PRN Reason: Nausea/Vomiting Last Admin: 04/19/17 13:40 Dose: 4 mg Oxycodone/Acetaminophen (Percocet 5/325 Mg Tab) 1 tab PO Q4H PRN PRN Reason: Pain, moderate (4-7) Stop: 04/22/17 09:01 Oxycodone/Acetaminophen (Percocet 5/325 Mg Tab) 2 tab PO Q4H PRN PRN Reason: Pain, severe (8-10) Stop: 04/22/17 09:01 Pantoprazole Sodium (Protonix Ec Tab) 40 mg PO DAILY [facility] Last Admin: 04/20/17 10:40 Dose: 40 mg Sodium Bicarbonate (Sodium Bicarbonate Tab) 1,300 mg PO QID [facility] Last Admin: 04/20/17 10:40 Dose: 1,300 mg Vitamin A (Vitamin A & D Oint Ud Foilpak) 1 ea TOP Q8 PRN PRN Reason: Moisture Zinc Sulfate (Zinc Sulfate 220 Mg Cap) 220 mg PO DAILY [facility] Last Admin: 04/20/17 10:40 Dose: 220 mg - Labs Labs: 04/20/17 07:00 04/20/17 07:00 PT 13.6 SECONDS (9.4-12.5) H 04/17/17 06:30 INR 1.18 (0.93-1.08) H 04/17/17 06:30 APTT 33.0 Seconds (25.1-36.5) 04/10/17 16:05 - Constitutional Appears: Well, Non-toxic, No Acute Distress - Extremities Exam Additional comments: Lower extremity focused examination: Vasc: DP/PT pulses palpable 2/4 B/L. Temperature gradient warm to warm. CFT < 3 sec to all digits, no pitting or non-pitting edema noted Derm: Surgical site appears intact with no dehiscence, no active drainage, no periwound erythema, no clinical suspicion of active infection, Additional superficial ulceration noted to left lateral malleolus with mixed fibrogranular base; periwound negative for erythema; no malodor, drainage, purulence, tunneling or undermining Neuro: Protective sensation is grossly intact B/L Ortho: Mild tenderness to palpation of right foot interspace ulceration. Left ankle ulceration mildly tender - Neurological Exam Neurological Exam: Alert, Awake, Oriented x3 - Psychiatric Exam Psychiatric exam: Normal Affect, Normal Mood Assessment and Plan - Assessment and Plan (Free Text) Assessment: 61 year old female patient seen and evaluated at bedside 1 day s/p right 2nd metatarsal resection. Plan: Pt seen and evaluated at bedside Discussed with attending Dr. Raymond Labs and vitals reviewed- afebrile, WBC 6.9 Intra-op wound cultures - PENDING Bilateral ulcerations cleansed with saline Right foot surgical site dressed with betadine, DSD Left ankle ulceration dressed with bactroban and Optifoam Continue Multipodus boots while in bed Arterial duplex scan - mildly abnormal CASSIDY MRI of the R foot: marrow edema of 2nd metatarsal consistent with OM; strong clinical suspicion of OM Continue IV abx as per ID - Zyvox, Merrem Pt is allowed PWB to right heel - has own [place] wound shoes which may be used for ambulation Patient is stable from podiatry standpoint - waiting for intra-op wound cultures Podiatry will continue to follow patient while in house <Jose Raymond - Last Filed: 04/21/17 08:15> Objective - Vital Signs/Intake and Output Vital Signs (last 24 hours): Temp Pulse Resp BP Pulse Ox 99.5 F 106 H 20 134/63 98 04/21/17 00:00 04/21/17 00:00 04/21/17 00:00 04/21/17 00:00 04/21/17 00:00 - Medications Medications: Current Medications Acetaminophen (Tylenol 325mg Tab) 650 mg PO Q6H PRN PRN Reason: Pain, Mild (1-3) Aspirin (Ecotrin) 81 mg PO DAILY [facility] Last Admin: 04/20/17 10:39 Dose: 81 mg Benzonatate (Tessalon Perles) 100 mg PO TID PRN PRN Reason: cough Last Admin: 04/20/17 10:39 Dose: 100 mg Cyanocobalamin (Vitamin B12 1000 Mcg Tab) 500 mcg PO DAILY [facility] Last Admin: 04/20/17 10:40 Dose: 500 mcg Ferrous Sulfate (Feosol) 324 mg PO TID [facility] Last Admin: 04/20/17 17:55 Dose: 324 mg Folic Acid (Folic Acid) 1 mg PO DAILY [facility] Last Admin: 04/20/17 10:41 Dose: 1 mg Home Med (Home Med) 1 unit PO DAILY@1200 [facility] Last Admin: 04/20/17 14:19 Dose: Not Given Sodium Chloride (Sodium Chloride 0.45%) 1,000 mls @ 75 mls/hr IV .[id number] [facility] Last Admin: 04/20/17 04:56 Dose: 75 mls/hr Linezolid (Zyvox 600mg/300ml D5w) 600 mg in 300 mls @ 200 mls/hr IVPB Q12 [facility] PRN Reason: Protocol Stop: 04/25/17 10:01 Last Admin: 04/20/17 22:01 Dose: 200 mls/hr Insulin Human Regular (Humulin R Low) 0 units SC ACHS [facility] PRN Reason: Protocol Last Admin: 04/21/17 07:50 Dose: Not Given Loperamide HCl (Imodium) 2 mg PO BID [facility] Last Admin: 04/20/17 17:56 Dose: 2 mg Megestrol Acetate (Megace) 40 mg PO DAILY [facility] Last Admin: 04/20/17 10:40 Dose: 40 mg Metoprolol Succinate (Toprol Xl) 25 mg PO DAILY [facility] Last Admin: 04/20/17 10:39 Dose: 25 mg Multivitamins/Minerals (Therapeutic-M Tab) 1 tab PO 0800 [facility] Last Admin: 04/21/17 08:11 Dose: 1 tab Mupirocin (Bactroban Ointment) 0 gm TOP BID [facility] Last Admin: 04/20/17 17:51 Dose: 1 unit Nystatin (Nystop Topical Powder) 0 gm TOP BID [facility] Last Admin: 04/20/17 17:15 Dose: 1 applic Ondansetron HCl (Zofran Inj) 4 mg IVP Q4H PRN PRN Reason: Nausea/Vomiting Last Admin: 04/19/17 13:40 Dose: 4 mg Oxycodone/Acetaminophen (Percocet 5/325 Mg Tab) 1 tab PO Q4H PRN PRN Reason: Pain, moderate (4-7) Stop: 04/22/17 09:01 Oxycodone/Acetaminophen (Percocet 5/325 Mg Tab) 2 tab PO Q4H PRN PRN Reason: Pain, severe (8-10) Stop: 04/22/17 09:01 Pantoprazole Sodium (Protonix Ec Tab) 40 mg PO DAILY [facility] Last Admin: 04/20/17 10:40 Dose: 40 mg Sodium Bicarbonate (Sodium Bicarbonate Tab) 1,300 mg PO QID [facility] Last Admin: 04/20/17 22:01 Dose: 1,300 mg Vitamin A (Vitamin A & D Oint Ud Foilpak) 1 ea TOP Q8 PRN PRN Reason: Moisture Zinc Sulfate (Zinc Sulfate 220 Mg Cap) 220 mg PO DAILY [facility] Last Admin: 04/20/17 10:40 Dose: 220 mg - Labs Labs: 04/20/17 07:00 04/20/17 07:00 PT 13.6 SECONDS (9.4-12.5) H 04/17/17 06:30 INR 1.18 (0.93-1.08) H 04/17/17 06:30 APTT 33.0 Seconds (25.1-36.5) 04/10/17 16:05 Attending/Attestation - Attestation I have personally seen and examined this patient.: Yes I have fully participated in the care of the patient.: Yes I have reviewed all pertinent clinical information, including history, physical exam and plan: Yes
[2017-04-20] MEDS: Nystatin 100,000 Units/gm Topical Pow(15 gm) TOP SCH ×2 (11:22→17:15)
[2017-04-20] MEDS: VELTASSA 8.4 GM PO SCH (14:19)
--- NOTE | 2017-04-20 16:57 | CP.PCM.PN ---
<Asif Newell - Last Filed: 04/20/17 16:48> Subjective - Date & Time of Evaluation Date of Evaluation: 04/20/17 Time of Evaluation: 07:30 - Subjective Subjective: Asif Reece DO PGY1 - IM Progress Note Patient seen and examined at bedside. No acute events overnight. No particular complaints. She denies any chest pain, shortness of breath, fever, or chills. She is no longer complaining of dysuria. Still has a rash in between her legs. Objective - Vital Signs/Intake and Output Vital Signs (last 24 hours): Temp Pulse Resp BP Pulse Ox 98 F 88 18 137/64 98 04/20/17 13:55 04/20/17 13:55 04/20/17 13:55 04/20/17 13:55 04/20/17 06:00 Intake and Output: 04/20/17 04/20/17 06:59 18:59 Intake Total 1140 Balance 1140 - Medications Medications: Current Medications Acetaminophen (Tylenol 325mg Tab) 650 mg PO Q6H PRN PRN Reason: Pain, Mild (1-3) Aspirin (Ecotrin) 81 mg PO DAILY [facility] Last Admin: 04/20/17 10:39 Dose: 81 mg Benzonatate (Tessalon Perles) 100 mg PO TID PRN PRN Reason: cough Last Admin: 04/20/17 10:39 Dose: 100 mg Cyanocobalamin (Vitamin B12 1000 Mcg Tab) 500 mcg PO DAILY [facility] Last Admin: 04/20/17 10:40 Dose: 500 mcg Ferrous Sulfate (Feosol) 324 mg PO TID [facility] Last Admin: 04/20/17 14:26 Dose: 324 mg Folic Acid (Folic Acid) 1 mg PO DAILY [facility] Last Admin: 04/20/17 10:41 Dose: 1 mg Home Med (Home Med) 1 unit PO DAILY@1200 [facility] Last Admin: 04/20/17 14:19 Dose: Not Given Sodium Chloride (Sodium Chloride 0.45%) 1,000 mls @ 75 mls/hr IV .[id number] [facility] Last Admin: 04/20/17 04:56 Dose: 75 mls/hr Linezolid (Zyvox 600mg/300ml D5w) 600 mg in 300 mls @ 200 mls/hr IVPB Q12 [facility] PRN Reason: Protocol Stop: 04/25/17 10:01 Last Admin: 04/20/17 10:41 Dose: 200 mls/hr Insulin Human Regular (Humulin R Low) 0 units SC ACHS [facility] PRN Reason: Protocol Last Admin: 04/20/17 14:20 Dose: 2 units Loperamide HCl (Imodium) 2 mg PO BID [facility] Last Admin: 04/17/17 10:17 Dose: 2 mg Megestrol Acetate (Megace) 40 mg PO DAILY [facility] Last Admin: 04/20/17 10:40 Dose: 40 mg Metoprolol Succinate (Toprol Xl) 25 mg PO DAILY [facility] Last Admin: 04/20/17 10:39 Dose: 25 mg Multivitamins/Minerals (Therapeutic-M Tab) 1 tab PO 0800 [facility] Last Admin: 04/20/17 08:20 Dose: 1 tab Mupirocin (Bactroban Ointment) 0 gm TOP BID [facility] Last Admin: 04/20/17 10:26 Dose: 2 unit Nystatin (Nystop Topical Powder) 0 gm TOP BID [facility] Last Admin: 04/20/17 11:22 Dose: 1 applic Ondansetron HCl (Zofran Inj) 4 mg IVP Q4H PRN PRN Reason: Nausea/Vomiting Last Admin: 04/19/17 13:40 Dose: 4 mg Oxycodone/Acetaminophen (Percocet 5/325 Mg Tab) 1 tab PO Q4H PRN PRN Reason: Pain, moderate (4-7) Stop: 04/22/17 09:01 Oxycodone/Acetaminophen (Percocet 5/325 Mg Tab) 2 tab PO Q4H PRN PRN Reason: Pain, severe (8-10) Stop: 04/22/17 09:01 Pantoprazole Sodium (Protonix Ec Tab) 40 mg PO DAILY [facility] Last Admin: 04/20/17 10:40 Dose: 40 mg Sodium Bicarbonate (Sodium Bicarbonate Tab) 1,300 mg PO QID [facility] Last Admin: 04/20/17 14:26 Dose: 1,300 mg Vitamin A (Vitamin A & D Oint Ud Foilpak) 1 ea TOP Q8 PRN PRN Reason: Moisture Zinc Sulfate (Zinc Sulfate 220 Mg Cap) 220 mg PO DAILY [facility] Last Admin: 04/20/17 10:40 Dose: 220 mg - Labs Labs: 04/20/17 07:00 04/20/17 07:00 PT 13.6 SECONDS (9.4-12.5) H 04/17/17 06:30 INR 1.18 (0.93-1.08) H 04/17/17 06:30 APTT 33.0 Seconds (25.1-36.5) 04/10/17 16:05 - Additional Findings Additional findings: - Constitutional Appears: Non-toxic, No Acute Distress, Chronically Ill - Head Exam Head Exam: ATRAUMATIC, NORMOCEPHALIC - Eye Exam Eye Exam: EOMI, Normal appearance, PERRL - ENT Exam ENT Exam: Mucous Membranes Dry - Neck Exam Neck Exam: Normal Inspection - Respiratory Exam Respiratory Exam: Clear to Ausculation Bilateral, NORMAL BREATHING PATTERN - Cardiovascular Exam Cardiovascular Exam: RRR, +S1, +S2 - GI/Abdominal Exam GI & Abdominal Exam: Soft, Normal Bowel Sounds. absent: Rigid, Tenderness - Extremities Exam Extremities Exam: absent: Calf Tenderness, Pedal Edema Additional comments: bilateral feet with dressings in place. CDI - Neurological Exam Neurological Exam: Alert, Awake, Oriented x3 - Psychiatric Exam Psychiatric exam: Normal Affect, Normal Mood - Skin Skin Exam: Dry, Intact Additional comments: Erythematous rash in groin, inguinal regions. Assessment and Plan - Assessment and Plan (Free Text) Assessment: 61F with PMH of Diabetes mellitus type 2, anemia, peripheral arterial disease, GERD, osteomyelitis, esophageal stenosis, hypertension, chronic kidney disease, CAD, and arthritis who presents to the ED from the wound care clinic with Dr. Raymond for osteomyelitis of the right foot. Now s/p R 2nd metatarsal partial resection Plan: Osteomyelitis R 2nd metatarsal s/p partial resection -Per ID, continue Zyvox; No worsening of rash; Continue to monitor LFTs -Continue IVF -Wound culture shows Group B Beta Hemolytic Strep -Afebrile; no leukocytosis -PT Eval/Treat for gait training and weakness; partial weight bearing -Vascular Surgery consulted - Dr. Najera -ID consulted - Dr. Nair -Podiatry consulted - Dr. Mattson Rash - Improving - Likely 2/2 Zyvox vs Merrem - Now back on Zyvox; face/arm rash resolved - Groin rash 2/2 urinary and fecal incontinence (constantly moist) - Continue nystatin powder; ordered A&D ointment; instructed nurse to apply purewick while in bed Chronic diarrhea - Patient reports one year of chronic watery diarrhea, not associated with any partricular triggers or pattern related to diet - C diff negative - Infectious workup negative (C diff, giardia, O&P, and culture) - Resume Loperamide - Stool workup pending, per GI - Requested GI consult; appreciate recs Anemia -H&H stable -Continue to monitor FREDY -Likely prerenal, considering septic state; improving, nearly back to baseline -Urine studies pending -Continue IVF hydration and PO hydration -Nephrology consulted (Dr. Reyes), recs appreciated Hypernatremia -Resolved, but patient continues to have multiple causes of hypoosmotic fluid losses -Continue hypoosmotic IVF - 1/2 NS @75cc/hr -Encourage PO water intake Elevated LFTs -Trending down; Continue to monitor -Autoimmune workup pending; per GI -Viral hep panel negative; Abd US and CT A/P showed increased echogenicity, likely fatty liver -GI on consult; appreciate recs Diabetes mellitus type 2 -low dose sliding scale -Consistent carb diet -Fingersticks ACHS CAD -Continue ASA 81mg po daily GI/DVT prophylaxis -Protonix -Heparin Patient seen, discussed, and reviewed with attending Dr. Rodríguez <Jaun Rodríguez - Last Filed: 04/21/17 15:03> Objective - Vital Signs/Intake and Output Vital Signs (last 24 hours): Temp Pulse Resp BP Pulse Ox 98.2 F 89 18 126/64 98 04/21/17 08:23 04/21/17 09:50 04/21/17 08:23 04/21/17 09:50 04/21/17 08:23 - Medications Medications: Current Medications Acetaminophen (Tylenol 325mg Tab) 650 mg PO Q6H PRN PRN Reason: Pain, Mild (1-3) Aspirin (Ecotrin) 81 mg PO DAILY [facility] Last Admin: 04/21/17 09:49 Dose: 81 mg Benzonatate (Tessalon Perles) 100 mg PO TID PRN PRN Reason: cough Last Admin: 04/21/17 11:10 Dose: 100 mg Cyanocobalamin (Vitamin B12 1000 Mcg Tab) 500 mcg PO DAILY [facility] Last Admin: 04/21/17 09:51 Dose: 500 mcg Ferrous Sulfate (Feosol) 324 mg PO TID [facility] Last Admin: 04/21/17 13:05 Dose: 324 mg Folic Acid (Folic Acid) 1 mg PO DAILY [facility] Last Admin: 04/21/17 09:49 Dose: 1 mg Home Med (Home Med) 1 unit PO DAILY@1200 [facility] Last Admin: 04/21/17 11:08 Dose: 1 unit Sodium Chloride (Sodium Chloride 0.45%) 1,000 mls @ 75 mls/hr IV .[id number] [facility] Last Admin: 04/21/17 08:36 Dose: 75 mls/hr Linezolid (Zyvox 600mg/300ml D5w) 600 mg in 300 mls @ 200 mls/hr IVPB Q12 [facility] PRN Reason: Protocol Stop: 04/25/17 10:01 Last Admin: 04/21/17 09:48 Dose: 200 mls/hr Insulin Human Regular (Humulin R Low) 0 units SC ACHS [facility] PRN Reason: Protocol Last Admin: 04/21/17 11:46 Dose: 4 units Loperamide HCl (Imodium) 2 mg PO BID [facility] Last Admin: 04/21/17 09:49 Dose: 2 mg Megestrol Acetate (Megace) 40 mg PO DAILY [facility] Last Admin: 04/21/17 09:50 Dose: 40 mg Metoprolol Succinate (Toprol Xl) 25 mg PO DAILY [facility] Last Admin: 04/21/17 09:50 Dose: 25 mg Multivitamins/Minerals (Therapeutic-M Tab) 1 tab PO 0800 [facility] Last Admin: 04/21/17 08:11 Dose: 1 tab Mupirocin (Bactroban Ointment) 0 gm TOP BID [facility] Last Admin: 04/21/17 11:05 Dose: Not Given Nystatin (Nystop Topical Powder) 0 gm TOP BID [facility] Last Admin: 04/21/17 11:05 Dose: 1 applic Ondansetron HCl (Zofran Inj) 4 mg IVP Q4H PRN PRN Reason: Nausea/Vomiting Last Admin: 04/19/17 13:40 Dose: 4 mg Oxycodone/Acetaminophen (Percocet 5/325 Mg Tab) 1 tab PO Q4H PRN PRN Reason: Pain, moderate (4-7) Stop: 04/22/17 09:01 Oxycodone/Acetaminophen (Percocet 5/325 Mg Tab) 2 tab PO Q4H PRN PRN Reason: Pain, severe (8-10) Stop: 04/22/17 09:01 Pantoprazole Sodium (Protonix Ec Tab) 40 mg PO DAILY [facility] Last Admin: 04/21/17 09:50 Dose: 40 mg Sodium Bicarbonate (Sodium Bicarbonate Tab) 1,300 mg PO QID [facility] Last Admin: 04/21/17 13:05 Dose: 1,300 mg Vitamin A (Vitamin A & D Oint Ud Foilpak) 1 ea TOP Q8 PRN PRN Reason: Moisture Zinc Sulfate (Zinc Sulfate 220 Mg Cap) 220 mg PO DAILY [facility] Last Admin: 04/21/17 09:51 Dose: 220 mg - Labs Labs: 04/21/17 08:30 04/21/17 08:30 PT 13.6 SECONDS (9.4-12.5) H 04/17/17 06:30 INR 1.18 (0.93-1.08) H 04/17/17 06:30 APTT 33.0 Seconds (25.1-36.5) 04/10/17 16:05 Attending/Attestation - Attestation I have personally seen and examined this patient.: Yes I have fully participated in the care of the patient.: Yes I have reviewed all pertinent clinical information, including history, physical exam and plan: Yes Notes (Text): 04/21/17 15:01 Attending note; Patient seen and examined with resident. 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 She had severe sepsis secondary to osteomyelitis of right foot. Wound culture is growing beta hemolytic group B. Currently on IV zyvox. s/p resection of the metatarsal. Will follow-up with podiatry. continue dressing. No bleeding noted. PT evaluation requested. Elevated LFTs ; patient with previous history of fatty liver and mildly elevated LFTs .GI evaluation appreciated. Patient will need outpatient colonoscopy and further workup for anemia .Hepatitis panel is negative. CT scan revealed fatty infiltration. case discussed trimming caser in detail. possible subacute placement for rehabilitation on IV anti-biotics. Upon discharge patient will follow up with Dr. Chavez.
--- NOTE | 2017-04-20 17:33 | CP.PCM.PN ---
Subjective - Date & Time of Evaluation Date of Evaluation: 04/20/17 Time of Evaluation: 10:55 - Subjective Subjective: Comfortable in bed, no fevers overnight, rash is resolved. Objective - Vital Signs/Intake and Output Vital Signs (last 24 hours): Temp Pulse Resp BP Pulse Ox 97.9 F 89 20 135/69 98 04/20/17 06:00 04/20/17 06:00 04/20/17 06:00 04/20/17 06:00 04/20/17 06:00 Intake and Output: 04/20/17 04/20/17 06:59 18:59 Intake Total 1140 Balance 1140 - Medications Medications: Current Medications Acetaminophen (Tylenol 325mg Tab) 650 mg PO Q6H PRN PRN Reason: Pain, Mild (1-3) Aspirin (Ecotrin) 81 mg PO DAILY [facility] Last Admin: 04/19/17 11:25 Dose: Not Given Benzonatate (Tessalon Perles) 100 mg PO TID PRN PRN Reason: cough Cyanocobalamin (Vitamin B12 1000 Mcg Tab) 500 mcg PO DAILY [facility] Last Admin: 04/19/17 11:31 Dose: 500 mcg Ferrous Sulfate (Feosol) 324 mg PO TID [facility] Last Admin: 04/19/17 17:38 Dose: 324 mg Folic Acid (Folic Acid) 1 mg PO DAILY [facility] Last Admin: 04/19/17 11:25 Dose: 1 mg Home Med (Home Med) 1 unit PO DAILY@1200 [facility] Last Admin: 04/19/17 11:25 Dose: Not Given Sodium Chloride (Sodium Chloride 0.45%) 1,000 mls @ 75 mls/hr IV .[id number] [facility] Last Admin: 04/20/17 04:56 Dose: 75 mls/hr Linezolid (Zyvox 600mg/300ml D5w) 600 mg in 300 mls @ 200 mls/hr IVPB Q12 [facility] PRN Reason: Protocol Stop: 04/25/17 10:01 Last Admin: 04/19/17 21:25 Dose: 200 mls/hr Insulin Human Regular (Humulin R Low) 0 units SC ACHS [facility] PRN Reason: Protocol Last Admin: 04/20/17 08:14 Dose: Not Given Loperamide HCl (Imodium) 2 mg PO BID [facility] Last Admin: 04/17/17 10:17 Dose: 2 mg Megestrol Acetate (Megace) 40 mg PO DAILY [facility] Last Admin: 04/19/17 11:24 Dose: 40 mg Metoprolol Succinate (Toprol Xl) 25 mg PO DAILY [facility] Last Admin: 04/19/17 11:23 Dose: 25 mg Multivitamins/Minerals (Therapeutic-M Tab) 1 tab PO 0800 [facility] Last Admin: 04/20/17 08:20 Dose: 1 tab Mupirocin (Bactroban Ointment) 0 gm TOP BID [facility] Last Admin: 04/19/17 17:39 Dose: Not Given Nystatin (Nystop Topical Powder) 0 gm TOP BID [facility] Last Admin: 04/19/17 17:41 Dose: 2 applic Ondansetron HCl (Zofran Inj) 4 mg IVP Q4H PRN PRN Reason: Nausea/Vomiting Last Admin: 04/19/17 13:40 Dose: 4 mg Oxycodone/Acetaminophen (Percocet 5/325 Mg Tab) 1 tab PO Q4H PRN PRN Reason: Pain, moderate (4-7) Stop: 04/22/17 09:01 Oxycodone/Acetaminophen (Percocet 5/325 Mg Tab) 2 tab PO Q4H PRN PRN Reason: Pain, severe (8-10) Stop: 04/22/17 09:01 Pantoprazole Sodium (Protonix Ec Tab) 40 mg PO DAILY [facility] Last Admin: 04/19/17 11:25 Dose: 40 mg Sodium Bicarbonate (Sodium Bicarbonate Tab) 1,300 mg PO QID [facility] Last Admin: 04/19/17 21:24 Dose: 1,300 mg Vitamin A (Vitamin A & D Oint Ud Foilpak) 1 ea TOP Q8 PRN PRN Reason: Moisture Zinc Sulfate (Zinc Sulfate 220 Mg Cap) 220 mg PO DAILY [facility] Last Admin: 04/19/17 11:24 Dose: 220 mg - Labs Labs: 04/20/17 07:00 04/20/17 07:00 PT 13.6 SECONDS (9.4-12.5) H 04/17/17 06:30 INR 1.18 (0.93-1.08) H 04/17/17 06:30 APTT 33.0 Seconds (25.1-36.5) 04/10/17 16:05 - Constitutional Appears: Non-toxic, Chronically Ill - Head Exam Head Exam: NORMAL INSPECTION - ENT Exam ENT Exam: Mucous Membranes Moist - Neck Exam Neck Exam: absent: Meningismus - Respiratory Exam Respiratory Exam: Decreased Breath Sounds - Cardiovascular Exam Cardiovascular Exam: +S1, +S2 - GI/Abdominal Exam GI & Abdominal Exam: Soft. absent: Tenderness - Extremities Exam Additional comments: right foot with dressings in place Assessment and Plan - Assessment and Plan (Free Text) Plan: Assessment severe sepsis due to right foot cellulitis with chronic osteomyelitis S/P partial resection POD #2 history of Acute osteomyelitis of the left foot; growing beta hemolytic strep DM Plan concerned that patient developed rash while on Zyvox and Merrem but rash is improved - will continue Zyvox and continue to observe if she still develops rash on it will need 4 weeks with weekly ESR, CRP, CBC, CMP, CPK levels (has had one week of antibiotics already)
[2017-04-21 06:59] LABS: STOOL SODIUM 57.2 mEq/L
[2017-04-21] MEDS: Insulin Reg-LOW-Coverage SC SCH ×5 (07:50→22:03)
[2017-04-21] MEDS: Multivitamin With Minerals Tab PO SCH (08:11)
[2017-04-21] MEDS: Sodium Chloride 0.45% 1,000 ML IV SCH ×2 (08:36→17:26)
[2017-04-21 08:56] LABS: BASO # 0.02 K/mm3 (0.0-2.0); BASO % 0.2 % (0.0-3.0); EOS # 0.1 (0.0-0.7); EOS % 1.2 % (1.5-5.0); GRAN # 6.38 (1.4-6.5); GRAN % 69.6 % (50.0-68.0); HEMOGLOBIN 10.3 g/dL (12.0-16.0); LYMPH # 1.8 (1.2-3.4); MEAN CELL VOLUME 93.7 fl (80.0-105.0); MEAN CORPUSCULAR HEMOGLOBIN 28.1 pg (25.0-35.0); MEAN PLATELET VOLUME 10.7 fl (7.0-11.0); MONO # 0.8 (0.1-0.6); RBC 3.66 10^6/uL (3.5-6.1); RED CELL DISTRIBUTION WIDTH 14.7 % (11.5-14.5); WHITE BLOOD COUNT 9.2 10^3/ul (4.5-11.0)
[2017-04-21 09:21] LABS: ALBUMIN 3.4 g/dL (3.0-4.8); CALCIUM 9.5 mg/dL (8.4-10.5)
[2017-04-21] MEDS: Linezolid 600 mg in D5W 300 ml 600 MG/300 ML BAG IVPB SCH ×2 (09:48→21:13)
[2017-04-21] MEDS: Metoprolol Succinate 25 mg XL Tab PO SCH (09:50)
[2017-04-21] MEDS: Pantoprazole 40 mg EC Tab PO SCH (09:50)
[2017-04-21] MEDS: Nystatin 100,000 Units/gm Topical Pow(15 gm) TOP SCH ×2 (11:05→17:25)
[2017-04-21] MEDS: VELTASSA 8.4 GM PO SCH (11:08)
--- NOTE | 2017-04-21 13:17 | PN ---
DATE: SUBJECTIVE: A 61-year-old female seen at bedside for continued evaluation and management of the right second metatarsal resection performed 2 days ago. She is resting comfortably with no new complaints. She has been afebrile. Vital signs revealed temperature of 98.2, pulse rate of 89, blood pressure of 126/64, respiratory rate of 18. LABORATORY DATA: Laboratory findings reveal white count of 9.2, hemoglobin of 10.3, hematocrit of 34.3, platelet count of 179. Microbiology report taken in the OR reveals a wound culture with no growth and a gram stain of the most proximal resected bone reveals no growth as well preliminarily. OBJECTIVE: Weakly palpable pedal pulses bilaterally. There is noted to be no lower extremity edema. Surgical incision site appears intact with no dehiscence, no active drainage, no purulence, no periwound edema or erythema. There are no clinical signs of acute bacterial infection at this time. There is noted to be a superficial ulceration at the left lateral malleoli, primarily granular base. There is noted to be scant serous drainage. The wound does not probe to tendon or bone. There is no purulence to suggest underlying abscess formation. ASSESSMENT: A 61-year-old female, status post right second metatarsal resection secondary to osteomyelitis, diabetic left lateral malleoli ulceration. PLAN: The patient's wounds were cleansed with normal sterile saline. Application of sterile nonadherent and a dry sterile dressing was applied to her surgical site. Application of Bactroban and Optifoam was applied to her left lateral ulceration. We will continue with IV antibiotics as per Infectious Disease. Preliminary reports taken in the OR reveal no bacterial growth. We will await final results. The patient was told that she can ambulate, but must use the forefoot offloading shoe at all times. The patient will be seen and followed daily. Jose Raymond DPM [facility]
--- NOTE | 2017-04-21 13:40 | CP.PCM.PN ---
<Pat Salgado - Last Filed: 04/21/17 13:36> Subjective - Date & Time of Evaluation Date of Evaluation: 04/21/17 Time of Evaluation: 07:00 - Subjective Subjective: Dr. Rodríguez Service Patient was seen and examined at bedside. Patient was found to be resting comfortably. She does not endorse any acute complaints at this time. No acute or adverse events overnight. She states that he is tolerating oral intake. Pt is incontinent of bowels and bladder. A pure wick catheter is to be placed. She denied fever, chills, shortness of breath, chest pains, abdominal pain, nausea, vomiting, diarrhea, constipation or urinary symptoms. Objective - Vital Signs/Intake and Output Vital Signs (last 24 hours): Temp Pulse Resp BP Pulse Ox 98.2 F 89 18 126/64 98 04/21/17 08:23 04/21/17 09:50 04/21/17 08:23 04/21/17 09:50 04/21/17 08:23 - Medications Medications: Current Medications Acetaminophen (Tylenol 325mg Tab) 650 mg PO Q6H PRN PRN Reason: Pain, Mild (1-3) Aspirin (Ecotrin) 81 mg PO DAILY [facility] Last Admin: 04/21/17 09:49 Dose: 81 mg Benzonatate (Tessalon Perles) 100 mg PO TID PRN PRN Reason: cough Last Admin: 04/21/17 11:10 Dose: 100 mg Cyanocobalamin (Vitamin B12 1000 Mcg Tab) 500 mcg PO DAILY [facility] Last Admin: 04/21/17 09:51 Dose: 500 mcg Ferrous Sulfate (Feosol) 324 mg PO TID [facility] Last Admin: 04/21/17 13:05 Dose: 324 mg Folic Acid (Folic Acid) 1 mg PO DAILY [facility] Last Admin: 04/21/17 09:49 Dose: 1 mg Home Med (Home Med) 1 unit PO DAILY@1200 [facility] Last Admin: 04/21/17 11:08 Dose: 1 unit Sodium Chloride (Sodium Chloride 0.45%) 1,000 mls @ 75 mls/hr IV .[id number] [facility] Last Admin: 04/21/17 08:36 Dose: 75 mls/hr Linezolid (Zyvox 600mg/300ml D5w) 600 mg in 300 mls @ 200 mls/hr IVPB Q12 [facility] PRN Reason: Protocol Stop: 04/25/17 10:01 Last Admin: 04/21/17 09:48 Dose: 200 mls/hr Insulin Human Regular (Humulin R Low) 0 units SC ACHS [facility] PRN Reason: Protocol Last Admin: 04/21/17 11:46 Dose: 4 units Loperamide HCl (Imodium) 2 mg PO BID [facility] Last Admin: 04/21/17 09:49 Dose: 2 mg Megestrol Acetate (Megace) 40 mg PO DAILY [facility] Last Admin: 04/21/17 09:50 Dose: 40 mg Metoprolol Succinate (Toprol Xl) 25 mg PO DAILY [facility] Last Admin: 04/21/17 09:50 Dose: 25 mg Multivitamins/Minerals (Therapeutic-M Tab) 1 tab PO 0800 [facility] Last Admin: 04/21/17 08:11 Dose: 1 tab Mupirocin (Bactroban Ointment) 0 gm TOP BID [facility] Last Admin: 04/21/17 11:05 Dose: Not Given Nystatin (Nystop Topical Powder) 0 gm TOP BID [facility] Last Admin: 04/21/17 11:05 Dose: 1 applic Ondansetron HCl (Zofran Inj) 4 mg IVP Q4H PRN PRN Reason: Nausea/Vomiting Last Admin: 04/19/17 13:40 Dose: 4 mg Oxycodone/Acetaminophen (Percocet 5/325 Mg Tab) 1 tab PO Q4H PRN PRN Reason: Pain, moderate (4-7) Stop: 04/22/17 09:01 Oxycodone/Acetaminophen (Percocet 5/325 Mg Tab) 2 tab PO Q4H PRN PRN Reason: Pain, severe (8-10) Stop: 04/22/17 09:01 Pantoprazole Sodium (Protonix Ec Tab) 40 mg PO DAILY [facility] Last Admin: 04/21/17 09:50 Dose: 40 mg Sodium Bicarbonate (Sodium Bicarbonate Tab) 1,300 mg PO QID [facility] Last Admin: 04/21/17 13:05 Dose: 1,300 mg Vitamin A (Vitamin A & D Oint Ud Foilpak) 1 ea TOP Q8 PRN PRN Reason: Moisture Zinc Sulfate (Zinc Sulfate 220 Mg Cap) 220 mg PO DAILY [facility] Last Admin: 04/21/17 09:51 Dose: 220 mg - Labs Labs: 04/21/17 08:30 04/21/17 08:30 PT 13.6 SECONDS (9.4-12.5) H 04/17/17 06:30 INR 1.18 (0.93-1.08) H 04/17/17 06:30 APTT 33.0 Seconds (25.1-36.5) 04/10/17 16:05 - Constitutional Appears: No Acute Distress - Head Exam Head Exam: ATRAUMATIC, NORMAL INSPECTION, NORMOCEPHALIC - Eye Exam Eye Exam: EOMI, Normal appearance, PERRL Pupil Exam: NORMAL ACCOMODATION, PERRL - ENT Exam ENT Exam: Mucous Membranes Moist, Normal Exam - Neck Exam Neck Exam: Full ROM, Normal Inspection. absent: Lymphadenopathy - Respiratory Exam Respiratory Exam: Clear to Ausculation Bilateral, NORMAL BREATHING PATTERN - Cardiovascular Exam Cardiovascular Exam: REGULAR RHYTHM, +S1, +S2. absent: Murmur - GI/Abdominal Exam GI & Abdominal Exam: Soft, Normal Bowel Sounds. absent: Tenderness - Extremities Exam Additional comments: B/L feet dressings clear dry and intact - Neurological Exam Neurological Exam: Alert, Awake, CN II-XII Intact, Oriented x3 - Psychiatric Exam Psychiatric exam: Normal Affect, Normal Mood - Skin Skin Exam: Dry, Intact, Normal Color, Warm Assessment and Plan - Assessment and Plan (Free Text) Assessment: 61 F with PMHx of Diabetes mellitus type 2, anemia, peripheral arterial disease , GERD, osteomyelitis, esophageal stenosis, hypertension, chronic kidney disease , CAD, and arthritis who presents to the ED from the wound care clinic with Dr. Raymond for osteomyelitis of the right foot. Now s/p R 2nd metatarsal partial resection. Patient will need 4 weeks of abx therapy with weekly CBC, CMP, CRP, ESR and CPK Osteomyelitis R 2nd metatarsal s/p partial resection -Per ID, continue Zyvox; No worsening of rash; Continue to monitor LFTs -Continue IVF -Wound culture shows Group B Beta Hemolytic Strep -Afebrile; no leukocytosis -PT Eval/Treat for gait training and weakness; partial weight bearing -Vascular Surgery consulted - Dr. Najera -ID consulted - Dr. Nair - pt will need 4 weeks of abx therapy with weekly CBC , CMP, CRP, ESR and CPK -Podiatry consulted - Dr. Mattson Rash - Improving - Likely 2/2 Zyvox vs Merrem - Now back on Zyvox; face/arm rash resolved - Groin rash 2/2 urinary and fecal incontinence (constantly moist) - Continue nystatin powder; ordered A&D ointment; instructed nurse to apply purewick while in bed Chronic diarrhea - Patient reports one year of chronic watery diarrhea, not associated with any partricular triggers or pattern related to diet - C diff negative - Infectious workup negative (C diff, giardia, O&P, and culture) - Resume Loperamide - Stool workup pending, per GI - Requested GI consult; appreciate recs Anemia -H&H stable -Continue to monitor FREDY - back to baseline -Continue IVF hydration and PO hydration -Nephrology consulted (Dr. Reyes), recs appreciated Hypernatremia -Resolved, but patient continues to have multiple causes of hypoosmotic fluid losses -Continue hypoosmotic IVF - 1/2 NS @75cc/hr -Encourage PO water intake Elevated LFTs -Trending down; Continue to monitor -Autoimmune workup pending; per GI -Viral hep panel negative; Abd US and CT A/P showed increased echogenicity, likely fatty liver -GI on consult; appreciate recs Diabetes mellitus type 2 -low dose sliding scale -Consistent carb diet -Fingersticks ACHS CAD -Continue ASA 81mg po daily GI/DVT prophylaxis -Protonix -Heparin Patient seen, discussed, and reviewed with attending Dr. Rodríguez <Jaun Rodríguez - Last Filed: 04/21/17 15:04> Objective - Vital Signs/Intake and Output Vital Signs (last 24 hours): Temp Pulse Resp BP Pulse Ox 98.2 F 89 18 126/64 98 04/21/17 08:23 04/21/17 09:50 04/21/17 08:23 04/21/17 09:50 04/21/17 08:23 - Medications Medications: Current Medications Acetaminophen (Tylenol 325mg Tab) 650 mg PO Q6H PRN PRN Reason: Pain, Mild (1-3) Aspirin (Ecotrin) 81 mg PO DAILY [facility] Last Admin: 04/21/17 09:49 Dose: 81 mg Benzonatate (Tessalon Perles) 100 mg PO TID PRN PRN Reason: cough Last Admin: 04/21/17 11:10 Dose: 100 mg Cyanocobalamin (Vitamin B12 1000 Mcg Tab) 500 mcg PO DAILY [facility] Last Admin: 04/21/17 09:51 Dose: 500 mcg Ferrous Sulfate (Feosol) 324 mg PO TID [facility] Last Admin: 04/21/17 13:05 Dose: 324 mg Folic Acid (Folic Acid) 1 mg PO DAILY [facility] Last Admin: 04/21/17 09:49 Dose: 1 mg Home Med (Home Med) 1 unit PO DAILY@1200 [facility] Last Admin: 04/21/17 11:08 Dose: 1 unit Sodium Chloride (Sodium Chloride 0.45%) 1,000 mls @ 75 mls/hr IV .[id number] [facility] Last Admin: 04/21/17 08:36 Dose: 75 mls/hr Linezolid (Zyvox 600mg/300ml D5w) 600 mg in 300 mls @ 200 mls/hr IVPB Q12 [facility] PRN Reason: Protocol Stop: 04/25/17 10:01 Last Admin: 04/21/17 09:48 Dose: 200 mls/hr Insulin Human Regular (Humulin R Low) 0 units SC ACHS [facility] PRN Reason: Protocol Last Admin: 04/21/17 11:46 Dose: 4 units Loperamide HCl (Imodium) 2 mg PO BID [facility] Last Admin: 04/21/17 09:49 Dose: 2 mg Megestrol Acetate (Megace) 40 mg PO DAILY [facility] Last Admin: 04/21/17 09:50 Dose: 40 mg Metoprolol Succinate (Toprol Xl) 25 mg PO DAILY [facility] Last Admin: 04/21/17 09:50 Dose: 25 mg Multivitamins/Minerals (Therapeutic-M Tab) 1 tab PO 0800 [facility] Last Admin: 04/21/17 08:11 Dose: 1 tab Mupirocin (Bactroban Ointment) 0 gm TOP BID [facility] Last Admin: 04/21/17 11:05 Dose: Not Given Nystatin (Nystop Topical Powder) 0 gm TOP BID [facility] Last Admin: 04/21/17 11:05 Dose: 1 applic Ondansetron HCl (Zofran Inj) 4 mg IVP Q4H PRN PRN Reason: Nausea/Vomiting Last Admin: 04/19/17 13:40 Dose: 4 mg Oxycodone/Acetaminophen (Percocet 5/325 Mg Tab) 1 tab PO Q4H PRN PRN Reason: Pain, moderate (4-7) Stop: 04/22/17 09:01 Oxycodone/Acetaminophen (Percocet 5/325 Mg Tab) 2 tab PO Q4H PRN PRN Reason: Pain, severe (8-10) Stop: 04/22/17 09:01 Pantoprazole Sodium (Protonix Ec Tab) 40 mg PO DAILY [facility] Last Admin: 04/21/17 09:50 Dose: 40 mg Sodium Bicarbonate (Sodium Bicarbonate Tab) 1,300 mg PO QID [facility] Last Admin: 04/21/17 13:05 Dose: 1,300 mg Vitamin A (Vitamin A & D Oint Ud Foilpak) 1 ea TOP Q8 PRN PRN Reason: Moisture Zinc Sulfate (Zinc Sulfate 220 Mg Cap) 220 mg PO DAILY [facility] Last Admin: 04/21/17 09:51 Dose: 220 mg - Labs Labs: 04/21/17 08:30 04/21/17 08:30 PT 13.6 SECONDS (9.4-12.5) H 04/17/17 06:30 INR 1.18 (0.93-1.08) H 04/17/17 06:30 APTT 33.0 Seconds (25.1-36.5) 04/10/17 16:05 Attending/Attestation - Attestation I have personally seen and examined this patient.: Yes I have fully participated in the care of the patient.: Yes I have reviewed all pertinent clinical information, including history, physical exam and plan: Yes Notes (Text): 04/21/17 15:04 Attending note; Patient seen and examined with resident. 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 She had severe sepsis secondary to osteomyelitis of right foot. Wound culture is growing beta hemolytic group B. Currently on IV zyvox. s/p resection of the metatarsal. Will follow-up with podiatry. continue dressing. No bleeding noted. PT evaluation appreciated. Elevated LFTs ; patient with previous history of fatty liver and mildly elevated LFTs .GI evaluation appreciated. Patient will need outpatient colonoscopy and further workup for anemia .Hepatitis panel is negative. CT scan revealed fatty infiltration. case discussed case sealer in detail. PT evaluation appreciated. awaiting authorization for rehabilitation placement. Upon discharge patient will follow up with Dr. Chavez.
--- NOTE | 2017-04-21 15:16 | CP.PCM.PN ---
Subjective - Date & Time of Evaluation Date of Evaluation: 04/21/17 Time of Evaluation: 15:15 - Subjective Subjective: RENAL FOLLOW UP no events overnight Assessment: Acute Kidney Injury (N17.9) l Hypernatremia, acidosis Diabetic chronic Kidney Disease (E11.22) Hypertensive Chronic Kidney Disease (I12.9) Chronic Kidney Disease (N18.3) Stage 3 Anemia (D64.9), Secondary Hyperparathyroidism (E21.1), Vit D def, HTN (I12.9) hearing loss, esophageal stenosis right foot osteomyelitis hypokalemia hypomagnesemia Plan Renal function remains stable on1/2 ns, encourage free water continue po bicarb dose of ananesp 04/11/17. Hgb remains stable S: seen and examined no acute events, pain well controlled, cough yesterday improved General Appearance: Comfortable, in no acute respiratory distress, co-operative . thin built Head; Atraumatic, normocephalic ENT: no ulcers EYES: Sclera is anicteric. Neck; supple Lungs: Normal respiratory rate/effort. Breath sounds bilateral equal and clear Heart: s1s2 normal. No rub or gallop. Extremities: no edema No varicose veins. Hand osteoarthritic deformities +. Neurological: Patient is alert, awake and oriented to person, place and time. No focal deficit. Strength bilateral appropriate and equal Skin: Warm and dressing on foot right Abdomen: Abdomen is soft. Bowel sounds + Psych: normal insight and normal affect/mood Objective - Vital Signs/Intake and Output Vital Signs (last 24 hours): Temp Pulse Resp BP Pulse Ox 98.2 F 89 18 126/64 98 04/21/17 08:23 04/21/17 09:50 04/21/17 08:23 04/21/17 09:50 04/21/17 08:23 - Medications Medications: Current Medications Acetaminophen (Tylenol 325mg Tab) 650 mg PO Q6H PRN PRN Reason: Pain, Mild (1-3) Aspirin (Ecotrin) 81 mg PO DAILY [facility] Last Admin: 04/21/17 09:49 Dose: 81 mg Benzonatate (Tessalon Perles) 100 mg PO TID PRN PRN Reason: cough Last Admin: 04/21/17 11:10 Dose: 100 mg Cyanocobalamin (Vitamin B12 1000 Mcg Tab) 500 mcg PO DAILY [facility] Last Admin: 04/21/17 09:51 Dose: 500 mcg Ferrous Sulfate (Feosol) 324 mg PO TID [facility] Last Admin: 04/21/17 13:05 Dose: 324 mg Folic Acid (Folic Acid) 1 mg PO DAILY [facility] Last Admin: 04/21/17 09:49 Dose: 1 mg Home Med (Home Med) 1 unit PO DAILY@1200 [facility] Last Admin: 04/21/17 11:08 Dose: 1 unit Sodium Chloride (Sodium Chloride 0.45%) 1,000 mls @ 75 mls/hr IV .[id number] [facility] Last Admin: 04/21/17 08:36 Dose: 75 mls/hr Linezolid (Zyvox 600mg/300ml D5w) 600 mg in 300 mls @ 200 mls/hr IVPB Q12 [facility] PRN Reason: Protocol Stop: 04/25/17 10:01 Last Admin: 04/21/17 09:48 Dose: 200 mls/hr Insulin Human Regular (Humulin R Low) 0 units SC ACHS [facility] PRN Reason: Protocol Last Admin: 04/21/17 11:46 Dose: 4 units Loperamide HCl (Imodium) 2 mg PO BID [facility] Last Admin: 04/21/17 09:49 Dose: 2 mg Megestrol Acetate (Megace) 40 mg PO DAILY [facility] Last Admin: 04/21/17 09:50 Dose: 40 mg Metoprolol Succinate (Toprol Xl) 25 mg PO DAILY [facility] Last Admin: 04/21/17 09:50 Dose: 25 mg Multivitamins/Minerals (Therapeutic-M Tab) 1 tab PO 0800 [facility] Last Admin: 04/21/17 08:11 Dose: 1 tab Mupirocin (Bactroban Ointment) 0 gm TOP BID [facility] Last Admin: 04/21/17 11:05 Dose: Not Given Nystatin (Nystop Topical Powder) 0 gm TOP BID [facility] Last Admin: 04/21/17 11:05 Dose: 1 applic Ondansetron HCl (Zofran Inj) 4 mg IVP Q4H PRN PRN Reason: Nausea/Vomiting Last Admin: 04/19/17 13:40 Dose: 4 mg Oxycodone/Acetaminophen (Percocet 5/325 Mg Tab) 1 tab PO Q4H PRN PRN Reason: Pain, moderate (4-7) Stop: 04/22/17 09:01 Oxycodone/Acetaminophen (Percocet 5/325 Mg Tab) 2 tab PO Q4H PRN PRN Reason: Pain, severe (8-10) Stop: 04/22/17 09:01 Pantoprazole Sodium (Protonix Ec Tab) 40 mg PO DAILY [facility] Last Admin: 04/21/17 09:50 Dose: 40 mg Sodium Bicarbonate (Sodium Bicarbonate Tab) 1,300 mg PO QID [facility] Last Admin: 04/21/17 13:05 Dose: 1,300 mg Vitamin A (Vitamin A & D Oint Ud Foilpak) 1 ea TOP Q8 PRN PRN Reason: Moisture Zinc Sulfate (Zinc Sulfate 220 Mg Cap) 220 mg PO DAILY [facility] Last Admin: 04/21/17 09:51 Dose: 220 mg - Labs Labs: 04/21/17 08:30 04/21/17 08:30 PT 13.6 SECONDS (9.4-12.5) H 04/17/17 06:30 INR 1.18 (0.93-1.08) H 04/17/17 06:30 APTT 33.0 Seconds (25.1-36.5) 04/10/17 16:05
--- NOTE | 2017-04-22 00:40 | PN ---
DATE: 04/21/2017 SUBJECTIVE: The patient is seen in bed, in no acute distress, nontoxic. PHYSICAL EXAMINATION: VITAL SIGNS: Temperature is 98, blood pressure is 130/60, respiratory rate of 18. HEENT: Unremarkable. NECK: Supple. LUNGS: Decreased breath sounds. HEART: Normal S1 and S2. ABDOMEN: Soft. LABORATORY DATA: Reveals a white count of 9.2, hemoglobin of 10, platelets of 179. BUN of 14, creatinine of 1.3. Alkaline phosphatase is 216. Urinalysis is noted. Serology is negative. Microbiology reveals urine culture had Klebsiella ozaenae. Review of medications on revealed the patient to be on linezolid. ASSESSMENT AND PLAN: This is a 61-year-old female with severe sepsis to the right foot with cellulitis, chronic osteomyelitis, status post partial resection, postoperative day #3, history of acute osteomyelitis to the left foot growing beta-hemolytic strep, diabetic, concerned about the development of rash while on Zyvox and meropenem, but currently on Zyvox 4 weeks maybe able to switch to p.o. with a weekly sed rate, C-reactive protein, CBC, follow up with a bone marrow closely. 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 Carroll Castellano MD
[2017-04-22] MEDS: Insulin Reg-LOW-Coverage SC SCH ×4 (07:54→22:01)
[2017-04-22 08:08] LABS: BASO # 0.02 K/mm3 (0.0-2.0); BASO % 0.3 % (0.0-3.0); EOS # 0.2 (0.0-0.7); EOS % 2.3 % (1.5-5.0); GRAN # 4.32 (1.4-6.5); GRAN % 62.3 % (50.0-68.0); HEMOGLOBIN 9.5 g/dL (12.0-16.0); LYMPH # 1.7 (1.2-3.4); LYMPH % 24.6 % (22.0-35.0); MEAN CELL VOLUME 92.8 fl (80.0-105.0); MEAN CORPUSCULAR HEMOGLOBIN 28.5 pg (25.0-35.0); MEAN CORPUSCULAR HGB CONC 30.7 g/dl (31.0-37.0); MEAN PLATELET VOLUME 10.4 fl (7.0-11.0); MONO # 0.7 (0.1-0.6); MONO % 10.5 % (1.0-6.0); RBC 3.33 10^6/uL (3.5-6.1); RED CELL DISTRIBUTION WIDTH 14.5 % (11.5-14.5); WHITE BLOOD COUNT 6.9 10^3/ul (4.5-11.0)
[2017-04-22 08:27] LABS: ALBUMIN 3.1 g/dL (3.0-4.8); CALCIUM 9.5 mg/dL (8.4-10.5)
[2017-04-22] MEDS: Multivitamin With Minerals Tab PO SCH (08:51)
[2017-04-22] MEDS: Linezolid 600 mg in D5W 300 ml 600 MG/300 ML BAG IVPB SCH ×2 (09:49→21:23)
[2017-04-22] MEDS: Nystatin 100,000 Units/gm Topical Pow(15 gm) TOP SCH ×2 (09:52→17:01)
[2017-04-22] MEDS: Pantoprazole 40 mg EC Tab PO SCH (09:52)
[2017-04-22] MEDS: Sodium Chloride 0.45% 1,000 ML IV SCH ×3 (09:53→22:02)
[2017-04-22] MEDS: Metoprolol Succinate 25 mg XL Tab PO SCH (09:54)
--- NOTE | 2017-04-22 12:17 | CP.PCM.PN ---
<Yamil De Los Santos - Last Filed: 04/22/17 12:12> Subjective - Date & Time of Evaluation Date of Evaluation: 04/22/17 Time of Evaluation: 12:12 - Subjective Subjective: Podiatry Progress Note- Dr. Raymond 61 year old female patient seen and evaluated at bedside 3 day s/p right 2nd metatarsal resection. Patient is seen resting comfortably in bed, in NAD, and AA0x3. Patient reports of no acute overnight events. Patient denies of any pain to her right foot today. Denies of any F/N/V/C/SOB/CP/headache. No new pedal complains today. Objective - Vital Signs/Intake and Output Vital Signs (last 24 hours): Temp Pulse Resp BP Pulse Ox 97.3 F L 88 18 115/62 94 L 04/22/17 07:58 04/22/17 09:54 04/22/17 07:58 04/22/17 09:54 04/22/17 07:58 Intake and Output: 04/22/17 04/22/17 06:59 18:59 Intake Total 460 Output Total 780 Balance -320 - Medications Medications: Current Medications Acetaminophen (Tylenol 325mg Tab) 650 mg PO Q6H PRN PRN Reason: Pain, Mild (1-3) Aspirin (Ecotrin) 81 mg PO DAILY [facility] Last Admin: 04/22/17 09:55 Dose: 81 mg Benzonatate (Tessalon Perles) 100 mg PO TID PRN PRN Reason: cough Last Admin: 04/21/17 11:10 Dose: 100 mg Cyanocobalamin (Vitamin B12 1000 Mcg Tab) 500 mcg PO DAILY [facility] Last Admin: 04/22/17 09:54 Dose: 500 mcg Ferrous Sulfate (Feosol) 324 mg PO TID [facility] Last Admin: 04/22/17 09:55 Dose: 324 mg Folic Acid (Folic Acid) 1 mg PO DAILY [facility] Last Admin: 04/22/17 09:55 Dose: 1 mg Home Med (Home Med) 1 unit PO DAILY@1200 [facility] Last Admin: 04/21/17 11:08 Dose: 1 unit Sodium Chloride (Sodium Chloride 0.45%) 1,000 mls @ 75 mls/hr IV .[id number] [facility] Last Admin: 04/22/17 09:53 Dose: 75 mls/hr Linezolid (Zyvox 600mg/300ml D5w) 600 mg in 300 mls @ 200 mls/hr IVPB Q12 [facility] PRN Reason: Protocol Stop: 04/25/17 10:01 Last Admin: 04/22/17 09:49 Dose: 200 mls/hr Insulin Human Regular (Humulin R Low) 0 units SC ACHS [facility] PRN Reason: Protocol Last Admin: 04/22/17 07:54 Dose: Not Given Loperamide HCl (Imodium) 2 mg PO BID [facility] Last Admin: 04/22/17 09:56 Dose: 2 mg Megestrol Acetate (Megace) 40 mg PO DAILY [facility] Last Admin: 04/22/17 09:56 Dose: 40 mg Metoprolol Succinate (Toprol Xl) 25 mg PO DAILY [facility] Last Admin: 04/22/17 09:54 Dose: 25 mg Multivitamins/Minerals (Therapeutic-M Tab) 1 tab PO 0800 [facility] Last Admin: 04/22/17 08:51 Dose: 1 tab Mupirocin (Bactroban Ointment) 0 gm TOP BID [facility] Last Admin: 04/22/17 09:51 Dose: 1 applic Nystatin (Nystop Topical Powder) 0 gm TOP BID [facility] Last Admin: 04/22/17 09:52 Dose: 1 applic Ondansetron HCl (Zofran Inj) 4 mg IVP Q4H PRN PRN Reason: Nausea/Vomiting Last Admin: 04/19/17 13:40 Dose: 4 mg Pantoprazole Sodium (Protonix Ec Tab) 40 mg PO DAILY [facility] Last Admin: 04/22/17 09:52 Dose: 40 mg Sodium Bicarbonate (Sodium Bicarbonate Tab) 1,300 mg PO QID [facility] Last Admin: 04/22/17 09:53 Dose: 1,300 mg Vitamin A (Vitamin A & D Oint Ud Foilpak) 1 ea TOP Q8 PRN PRN Reason: Moisture Zinc Sulfate (Zinc Sulfate 220 Mg Cap) 220 mg PO DAILY [facility] Last Admin: 04/22/17 09:55 Dose: 220 mg - Labs Labs: 04/22/17 07:30 04/22/17 07:30 PT 13.6 SECONDS (9.4-12.5) H 04/17/17 06:30 INR 1.18 (0.93-1.08) H 04/17/17 06:30 APTT 33.0 Seconds (25.1-36.5) 04/10/17 16:05 - Constitutional Appears: Well, Non-toxic, No Acute Distress - Extremities Exam Extremities Exam: absent: Calf Tenderness Additional comments: Lower extremity focused examination: Vasc: DP/PT pulses palpable 2/4 B/L. Temperature gradient warm to warm. CFT < 3 sec to all digits, no pitting or non-pitting edema noted Derm: Surgical site appears intact with no dehiscence, no active drainage, no periwound erythema, no clinical suspicion of active infection, Additional superficial ulceration noted to left lateral malleolus with mixed fibrogranular base; periwound negative for erythema; no malodor, drainage, purulence, tunneling or undermining Neuro: Protective sensation is grossly intact B/L Ortho: Mild tenderness to palpation of right foot interspace ulceration. Left ankle ulceration mildly tender - Neurological Exam Neurological Exam: Alert, Awake, Oriented x3 - Psychiatric Exam Psychiatric exam: Normal Affect, Normal Mood Assessment and Plan - Assessment and Plan (Free Text) Assessment: 61 year old female patient seen and evaluated at bedside 3 days s/p right 2nd metatarsal resection. Plan: Pt seen and evaluated at bedside Discussed with attending Dr. Raymond Labs and vitals reviewed- afebrile, WBC 6.9 Intra-op wound cultures - preliminary no growth Bilateral ulcerations cleansed with saline Right foot surgical site dressed with betadine, DSD Left ankle ulceration dressed with bactroban and Optifoam Continue Multipodus boots while in bed Arterial duplex scan - mildly abnormal CASSIDY MRI of the R foot: marrow edema of 2nd metatarsal consistent with OM; strong clinical suspicion of OM Continue IV abx as per ID - Zyvox, Merrem Pt is allowed PWB to right heel - has own [place] wound shoes which may be used for ambulation Patient is stable from podiatry standpoint Podiatry will continue to follow patient while in house <Jose Raymond - Last Filed: 04/24/17 10:59> Objective - Vital Signs/Intake and Output Vital Signs (last 24 hours): Temp Pulse Resp BP Pulse Ox 98.6 F 86 18 145/73 100 04/24/17 07:00 04/24/17 07:00 04/24/17 07:00 04/24/17 07:00 04/24/17 07:00 Intake and Output: 04/24/17 04/24/17 06:59 18:59 Intake Total 840 Balance 840 - Medications Medications: Current Medications Acetaminophen (Tylenol 325mg Tab) 650 mg PO Q6H PRN PRN Reason: Pain, Mild (1-3) Aspirin (Ecotrin) 81 mg PO DAILY [facility] Last Admin: 04/23/17 10:55 Dose: 81 mg Benzonatate (Tessalon Perles) 100 mg PO TID PRN PRN Reason: cough Last Admin: 04/22/17 21:27 Dose: 100 mg Cyanocobalamin (Vitamin B12 1000 Mcg Tab) 500 mcg PO DAILY [facility] Last Admin: 04/23/17 10:55 Dose: 500 mcg Ferrous Sulfate (Feosol) 324 mg PO TID [facility] Last Admin: 04/23/17 18:37 Dose: 324 mg Folic Acid (Folic Acid) 1 mg PO DAILY [facility] Last Admin: 04/23/17 10:55 Dose: 1 mg Home Med (Home Med) 1 unit PO DAILY@1200 [facility] Last Admin: 04/23/17 12:43 Dose: 1 unit Linezolid (Zyvox 600mg/300ml D5w) 600 mg in 300 mls @ 200 mls/hr IVPB Q12 [facility] PRN Reason: Protocol Stop: 04/25/17 10:01 Last Admin: 04/23/17 21:36 Dose: 200 mls/hr Insulin Human Regular (Humulin R Low) 0 units SC ACHS [facility] PRN Reason: Protocol Last Admin: 04/24/17 09:11 Dose: Not Given Loperamide HCl (Imodium) 2 mg PO BID [facility] Last Admin: 04/23/17 20:36 Dose: Not Given Megestrol Acetate (Megace) 40 mg PO DAILY [facility] Last Admin: 04/23/17 10:55 Dose: 40 mg Metoprolol Succinate (Toprol Xl) 25 mg PO DAILY [facility] Last Admin: 04/23/17 10:55 Dose: 25 mg Multivitamins/Minerals (Therapeutic-M Tab) 1 tab PO 0800 [facility] Last Admin: 04/24/17 08:37 Dose: 1 tab Mupirocin (Bactroban Ointment) 0 gm TOP BID [facility] Last Admin: 04/23/17 20:26 Dose: 1 applic Nystatin (Nystop Topical Powder) 0 gm TOP BID [facility] Last Admin: 04/23/17 18:37 Dose: 1 applic Ondansetron HCl (Zofran Inj) 4 mg IVP Q4H PRN PRN Reason: Nausea/Vomiting Last Admin: 04/19/17 13:40 Dose: 4 mg Pantoprazole Sodium (Protonix Ec Tab) 40 mg PO DAILY [facility] Last Admin: 04/23/17 10:54 Dose: 40 mg Sodium Bicarbonate (Sodium Bicarbonate Tab) 1,300 mg PO QID [facility] Last Admin: 04/23/17 21:36 Dose: 1,300 mg Vitamin A (Vitamin A & D Oint Ud Foilpak) 1 ea TOP Q8 PRN PRN Reason: Moisture Zinc Sulfate (Zinc Sulfate 220 Mg Cap) 220 mg PO DAILY [facility] Last Admin: 04/23/17 10:54 Dose: 220 mg - Labs Labs: 04/23/17 07:50 04/23/17 07:50 PT 13.6 SECONDS (9.4-12.5) H 04/17/17 06:30 INR 1.18 (0.93-1.08) H 04/17/17 06:30 APTT 33.0 Seconds (25.1-36.5) 04/10/17 16:05 Attending/Attestation - Attestation I have personally seen and examined this patient.: Yes I have fully participated in the care of the patient.: Yes I have reviewed all pertinent clinical information, including history, physical exam and plan: Yes
[2017-04-22] MEDS: VELTASSA 8.4 GM PO SCH (12:18)
--- NOTE | 2017-04-22 12:47 | CP.PCM.PN ---
Subjective - Date & Time of Evaluation Date of Evaluation: 04/22/17 Time of Evaluation: 12:46 - Subjective Subjective: RENAL FOLLOW UP Assessment: Acute Kidney Injury (N17.9) l Hypernatremia, acidosis Diabetic chronic Kidney Disease (E11.22) Hypertensive Chronic Kidney Disease (I12.9) Chronic Kidney Disease (N18.3) Stage 3 Anemia (D64.9), Secondary Hyperparathyroidism (E21.1), Vit D def, HTN (I12.9) hearing loss, esophageal stenosis right foot osteomyelitis hypokalemia hypomagnesemia Plan Renal function remains stable on 2 ns, encourage free water continue po bicarb dose of ananesp 04/11/17. Hgb remains stable S: seen and examined no acute events, pain well controlled, no cough today General Appearance: Comfortable, in no acute respiratory distress, co-operative . thin built Head; Atraumatic, normocephalic ENT: no ulcers EYES: Sclera is anicteric. Neck; supple Lungs: Normal respiratory rate/effort. Breath sounds bilateral equal and clear Heart: s1s2 normal. No rub or gallop. Extremities: no edema No varicose veins. Hand osteoarthritic deformities +. Neurological: Patient is alert, awake and oriented to person, place and time. No focal deficit. Strength bilateral appropriate and equal Skin: Warm and dressing on foot right Abdomen: Abdomen is soft. Bowel sounds + Psych: normal insight and normal affect/mood Objective - Vital Signs/Intake and Output Vital Signs (last 24 hours): Temp Pulse Resp BP Pulse Ox 97.3 F L 88 18 115/62 94 L 04/22/17 07:58 04/22/17 09:54 04/22/17 07:58 04/22/17 09:54 04/22/17 07:58 Intake and Output: 04/22/17 04/22/17 06:59 18:59 Intake Total 460 Output Total 780 Balance -320 - Medications Medications: Current Medications Acetaminophen (Tylenol 325mg Tab) 650 mg PO Q6H PRN PRN Reason: Pain, Mild (1-3) Aspirin (Ecotrin) 81 mg PO DAILY [facility] Last Admin: 04/22/17 09:55 Dose: 81 mg Benzonatate (Tessalon Perles) 100 mg PO TID PRN PRN Reason: cough Last Admin: 02/10/18 11:10 Dose: 100 mg Cyanocobalamin (Vitamin B12 1000 Mcg Tab) 500 mcg PO DAILY [facility] Last Admin: 04/22/17 09:54 Dose: 500 mcg Ferrous Sulfate (Feosol) 324 mg PO TID [facility] Last Admin: 04/22/17 09:55 Dose: 324 mg Folic Acid (Folic Acid) 1 mg PO DAILY [facility] Last Admin: 04/22/17 09:55 Dose: 1 mg Home Med (Home Med) 1 unit PO DAILY@1200 [facility] Last Admin: 04/22/17 12:18 Dose: 1 unit Sodium Chloride (Sodium Chloride 0.45%) 1,000 mls @ 75 mls/hr IV .[id number] [facility] Last Admin: 04/22/17 09:53 Dose: 75 mls/hr Linezolid (Zyvox 600mg/300ml D5w) 600 mg in 300 mls @ 200 mls/hr IVPB Q12 [facility] PRN Reason: Protocol Stop: 04/25/17 10:01 Last Admin: 04/22/17 09:49 Dose: 200 mls/hr Insulin Human Regular (Humulin R Low) 0 units SC ACHS [facility] PRN Reason: Protocol Last Admin: 04/22/17 12:19 Dose: 1 units Loperamide HCl (Imodium) 2 mg PO BID [facility] Last Admin: 04/22/17 09:56 Dose: 2 mg Megestrol Acetate (Megace) 40 mg PO DAILY [facility] Last Admin: 04/22/17 09:56 Dose: 40 mg Metoprolol Succinate (Toprol Xl) 25 mg PO DAILY [facility] Last Admin: 04/22/17 09:54 Dose: 25 mg Multivitamins/Minerals (Therapeutic-M Tab) 1 tab PO 0800 [facility] Last Admin: 04/22/17 08:51 Dose: 1 tab Mupirocin (Bactroban Ointment) 0 gm TOP BID [facility] Last Admin: 04/22/17 09:51 Dose: 1 applic Nystatin (Nystop Topical Powder) 0 gm TOP BID [facility] Last Admin: 04/22/17 09:52 Dose: 1 applic Ondansetron HCl (Zofran Inj) 4 mg IVP Q4H PRN PRN Reason: Nausea/Vomiting Last Admin: 04/19/17 13:40 Dose: 4 mg Pantoprazole Sodium (Protonix Ec Tab) 40 mg PO DAILY [facility] Last Admin: 04/22/17 09:52 Dose: 40 mg Sodium Bicarbonate (Sodium Bicarbonate Tab) 1,300 mg PO QID [facility] Last Admin: 04/22/17 09:53 Dose: 1,300 mg Vitamin A (Vitamin A & D Oint Ud Foilpak) 1 ea TOP Q8 PRN PRN Reason: Moisture Zinc Sulfate (Zinc Sulfate 220 Mg Cap) 220 mg PO DAILY [facility] Last Admin: 04/22/17 09:55 Dose: 220 mg - Labs Labs: 04/22/17 07:30 04/22/17 07:30 PT 13.6 SECONDS (9.4-12.5) H 04/17/17 06:30 INR 1.18 (0.93-1.08) H 04/17/17 06:30 APTT 33.0 Seconds (25.1-36.5) 04/10/17 16:05
--- NOTE | 2017-04-22 14:22 | CP.PCM.PN ---
<Pat Salgado - Last Filed: 04/22/17 14:17> Subjective - Date & Time of Evaluation Date of Evaluation: 04/22/17 Time of Evaluation: 11:25 - Subjective Subjective: Dr. Rodríguez Service Patient was seen and examined at bedside. Patient was found to be resting comfortably. She does not endorse any acute complaints at this time. Pt still experiencing loose stools. No acute or adverse events overnight. She states that he is tolerating oral intake. Pt is incontinent of bowels and bladder. A pure wick catheter placed and tolerating. She denied fever, chills, shortness of breath, chest pains, abdominal pain, nausea, vomiting, constipation or urinary symptoms. Objective - Vital Signs/Intake and Output Vital Signs (last 24 hours): Temp Pulse Resp BP Pulse Ox 97.3 F L 88 18 115/62 94 L 04/22/17 07:58 04/22/17 09:54 04/22/17 07:58 04/22/17 09:54 04/22/17 07:58 Intake and Output: 04/22/17 04/22/17 06:59 18:59 Intake Total 460 Output Total 780 Balance -320 - Medications Medications: Current Medications Acetaminophen (Tylenol 325mg Tab) 650 mg PO Q6H PRN PRN Reason: Pain, Mild (1-3) Aspirin (Ecotrin) 81 mg PO DAILY [facility] Last Admin: 04/22/17 09:55 Dose: 81 mg Benzonatate (Tessalon Perles) 100 mg PO TID PRN PRN Reason: cough Last Admin: 04/21/17 11:10 Dose: 100 mg Cyanocobalamin (Vitamin B12 1000 Mcg Tab) 500 mcg PO DAILY [facility] Last Admin: 04/22/17 09:54 Dose: 500 mcg Ferrous Sulfate (Feosol) 324 mg PO TID [facility] Last Admin: 04/22/17 14:04 Dose: 324 mg Folic Acid (Folic Acid) 1 mg PO DAILY [facility] Last Admin: 04/22/17 09:55 Dose: 1 mg Home Med (Home Med) 1 unit PO DAILY@1200 [facility] Last Admin: 04/22/17 12:18 Dose: 1 unit Sodium Chloride (Sodium Chloride 0.45%) 1,000 mls @ 75 mls/hr IV .[id number] [facility] Last Admin: 04/22/17 09:53 Dose: 75 mls/hr Linezolid (Zyvox 600mg/300ml D5w) 600 mg in 300 mls @ 200 mls/hr IVPB Q12 [facility] PRN Reason: Protocol Stop: 04/25/17 10:01 Last Admin: 04/22/17 09:49 Dose: 200 mls/hr Insulin Human Regular (Humulin R Low) 0 units SC ACHS [facility] PRN Reason: Protocol Last Admin: 04/22/17 12:19 Dose: 1 units Loperamide HCl (Imodium) 2 mg PO BID [facility] Last Admin: 04/22/17 09:56 Dose: 2 mg Megestrol Acetate (Megace) 40 mg PO DAILY [facility] Last Admin: 04/22/17 09:56 Dose: 40 mg Metoprolol Succinate (Toprol Xl) 25 mg PO DAILY [facility] Last Admin: 04/22/17 09:54 Dose: 25 mg Multivitamins/Minerals (Therapeutic-M Tab) 1 tab PO 0800 [facility] Last Admin: 04/22/17 08:51 Dose: 1 tab Mupirocin (Bactroban Ointment) 0 gm TOP BID [facility] Last Admin: 04/22/17 09:51 Dose: 1 applic Nystatin (Nystop Topical Powder) 0 gm TOP BID [facility] Last Admin: 04/22/17 09:52 Dose: 1 applic Ondansetron HCl (Zofran Inj) 4 mg IVP Q4H PRN PRN Reason: Nausea/Vomiting Last Admin: 04/19/17 13:40 Dose: 4 mg Pantoprazole Sodium (Protonix Ec Tab) 40 mg PO DAILY [facility] Last Admin: 04/22/17 09:52 Dose: 40 mg Sodium Bicarbonate (Sodium Bicarbonate Tab) 1,300 mg PO QID [facility] Last Admin: 04/22/17 14:04 Dose: 1,300 mg Vitamin A (Vitamin A & D Oint Ud Foilpak) 1 ea TOP Q8 PRN PRN Reason: Moisture Zinc Sulfate (Zinc Sulfate 220 Mg Cap) 220 mg PO DAILY [facility] Last Admin: 04/22/17 09:55 Dose: 220 mg - Labs Labs: 04/22/17 07:30 04/22/17 07:30 PT 13.6 SECONDS (9.4-12.5) H 04/17/17 06:30 INR 1.18 (0.93-1.08) H 04/17/17 06:30 APTT 33.0 Seconds (25.1-36.5) 04/10/17 16:05 - Constitutional Appears: No Acute Distress - Head Exam Head Exam: ATRAUMATIC, NORMAL INSPECTION, NORMOCEPHALIC - Eye Exam Eye Exam: EOMI, Normal appearance, PERRL Pupil Exam: NORMAL ACCOMODATION, PERRL - ENT Exam ENT Exam: Mucous Membranes Moist, Normal Exam - Neck Exam Neck Exam: Full ROM, Normal Inspection. absent: Lymphadenopathy - Respiratory Exam Respiratory Exam: Clear to Ausculation Bilateral, NORMAL BREATHING PATTERN - Cardiovascular Exam Cardiovascular Exam: REGULAR RHYTHM, +S1, +S2. absent: Murmur - GI/Abdominal Exam GI & Abdominal Exam: Soft, Normal Bowel Sounds. absent: Tenderness - Extremities Exam Additional comments: b/l Lower extremities bandaged - Neurological Exam Neurological Exam: Alert, Awake, CN II-XII Intact, Oriented x3 - Psychiatric Exam Psychiatric exam: Normal Affect, Normal Mood - Skin Skin Exam: Dry, Intact, Normal Color, Warm Assessment and Plan - Assessment and Plan (Free Text) Assessment: 61 F with PMHx of Diabetes mellitus type 2, anemia, peripheral arterial disease , GERD, osteomyelitis, esophageal stenosis, hypertension, chronic kidney disease , CAD, and arthritis who presents to the ED from the wound care clinic with Dr. Raymond for osteomyelitis of the right foot. Now s/p R 2nd metatarsal partial resection. Patient will need 4 weeks of abx therapy with weekly CBC, CMP, CRP, ESR and CPK Osteomyelitis R 2nd metatarsal s/p partial resection -Per ID, continue Zyvox;Continue to monitor LFTs -Continue IVF, encourage free water intake -Intra-op wound cultures - preliminary no growth - Bilateral ulcerations cleansed with saline - Right foot surgical site dressed with betadine, DSD - Left ankle ulceration dressed with bactroban and Optifoam -Afebrile; no leukocytosis -PT Eval/Treat for gait training and weakness; partial weight bearing -ID consulted - Dr. Nair - pt will need 4 weeks of abx therapy with weekly CBC , CMP, CRP, ESR and CPK -Podiatry consulted - Dr. Matston, Continue Multipodus boots while in bed. Pt is allowed PWB to right heel - has own Darco wound shoes which may be used for ambulation Patient is stable from podiatry standpoint Rash - Improving - Likely 2/2 Zyvox vs Merrem - Now back on Zyvox; face/arm rash resolved - Groin rash 2/2 urinary and fecal incontinence (constantly moist) - Continue nystatin powder; ordered A&D ointment; instructed nurse to apply purewick while in bed Chronic diarrhea - Patient reports one year of chronic watery diarrhea, not associated with any partricular triggers or pattern related to diet - C diff negative - Infectious workup negative (C diff, giardia, O&P, and culture) - Resume Loperamide - Stool workup pending, per GI - Requested GI consult; appreciate recs Anemia -H&H stable -Continue to monitor FREDY - back to baseline -Continue IVF hydration and PO hydration -Nephrology consulted (Dr. Reyes), recs appreciated Hypernatremia -Resolved, but patient continues to have multiple causes of hypoosmotic fluid losses -Continue hypoosmotic IVF - 1/2 NS @75cc/hr -Encourage PO water intake Elevated LFTs -Trending down; Continue to monitor -Autoimmune workup pending; per GI -Viral hep panel negative; Abd US and CT A/P showed increased echogenicity, likely fatty liver -GI on consult; appreciate recs Diabetes mellitus type 2 -low dose sliding scale -Consistent carb diet -Fingersticks ACHS CAD -Continue ASA 81mg po daily GI/DVT prophylaxis -Protonix -Heparin DISPO: Horacio at [facility] where patient chose to go is aware. Awaiting decision with [employer]. Patient seen, discussed, and reviewed with attending Dr. Rodríguez <Jaun Rodríguez - Last Filed: 04/22/17 15:24> Objective - Vital Signs/Intake and Output Vital Signs (last 24 hours): Temp Pulse Resp BP Pulse Ox 97.3 F L 88 18 115/62 94 L 04/22/17 07:58 04/22/17 09:54 04/22/17 07:58 04/22/17 09:54 04/22/17 07:58 Intake and Output: 04/22/17 04/22/17 06:59 18:59 Intake Total 460 Output Total 780 Balance -320 - Medications Medications: Current Medications Acetaminophen (Tylenol 325mg Tab) 650 mg PO Q6H PRN PRN Reason: Pain, Mild (1-3) Aspirin (Ecotrin) 81 mg PO DAILY [facility] Last Admin: 04/22/17 09:55 Dose: 81 mg Benzonatate (Tessalon Perles) 100 mg PO TID PRN PRN Reason: cough Last Admin: 04/21/17 11:10 Dose: 100 mg Cyanocobalamin (Vitamin B12 1000 Mcg Tab) 500 mcg PO DAILY [facility] Last Admin: 04/22/17 09:54 Dose: 500 mcg Ferrous Sulfate (Feosol) 324 mg PO TID [facility] Last Admin: 04/22/17 14:04 Dose: 324 mg Folic Acid (Folic Acid) 1 mg PO DAILY [facility] Last Admin: 04/22/17 09:55 Dose: 1 mg Home Med (Home Med) 1 unit PO DAILY@1200 [facility] Last Admin: 04/22/17 12:18 Dose: 1 unit Sodium Chloride (Sodium Chloride 0.45%) 1,000 mls @ 75 mls/hr IV .[id number] [facility] Last Admin: 04/22/17 09:53 Dose: 75 mls/hr Linezolid (Zyvox 600mg/300ml D5w) 600 mg in 300 mls @ 200 mls/hr IVPB Q12 [facility] PRN Reason: Protocol Stop: 04/25/17 10:01 Last Admin: 04/22/17 09:49 Dose: 200 mls/hr Insulin Human Regular (Humulin R Low) 0 units SC ACHS [facility] PRN Reason: Protocol Last Admin: 04/22/17 12:19 Dose: 1 units Loperamide HCl (Imodium) 2 mg PO BID [facility] Last Admin: 04/22/17 09:56 Dose: 2 mg Megestrol Acetate (Megace) 40 mg PO DAILY [facility] Last Admin: 04/22/17 09:56 Dose: 40 mg Metoprolol Succinate (Toprol Xl) 25 mg PO DAILY [facility] Last Admin: 04/22/17 09:54 Dose: 25 mg Multivitamins/Minerals (Therapeutic-M Tab) 1 tab PO 0800 [facility] Last Admin: 04/22/17 08:51 Dose: 1 tab Mupirocin (Bactroban Ointment) 0 gm TOP BID [facility] Last Admin: 04/22/17 09:51 Dose: 1 applic Nystatin (Nystop Topical Powder) 0 gm TOP BID [facility] Last Admin: 04/22/17 09:52 Dose: 1 applic Ondansetron HCl (Zofran Inj) 4 mg IVP Q4H PRN PRN Reason: Nausea/Vomiting Last Admin: 04/19/17 13:40 Dose: 4 mg Pantoprazole Sodium (Protonix Ec Tab) 40 mg PO DAILY [facility] Last Admin: 04/22/17 09:52 Dose: 40 mg Sodium Bicarbonate (Sodium Bicarbonate Tab) 1,300 mg PO QID [facility] Last Admin: 04/22/17 14:04 Dose: 1,300 mg Vitamin A (Vitamin A & D Oint Ud Foilpak) 1 ea TOP Q8 PRN PRN Reason: Moisture Zinc Sulfate (Zinc Sulfate 220 Mg Cap) 220 mg PO DAILY [facility] Last Admin: 04/22/17 09:55 Dose: 220 mg - Labs Labs: 04/22/17 07:30 04/22/17 07:30 PT 13.6 SECONDS (9.4-12.5) H 04/17/17 06:30 INR 1.18 (0.93-1.08) H 04/17/17 06:30 APTT 33.0 Seconds (25.1-36.5) 04/10/17 16:05 Attending/Attestation - Attestation I have personally seen and examined this patient.: Yes I have fully participated in the care of the patient.: Yes I have reviewed all pertinent clinical information, including history, physical exam and plan: Yes Notes (Text): 04/22/17 15:23 Attending note; Patient seen and examined with resident. Patient is a 61 year old female with history of type 2 diabetes,chronic anemia , chronic diarrhea,peripheral arterial disease, esophageal stenosis, hypertension, chronic kidney disease and arthritis was sent by deaf/hard of hearing specialist for evaluation of osteomyelitis of right second metatarsal. She had severe sepsis secondary to osteomyelitis of right foot. Wound culture is growing beta hemolytic group B. Currently on IV zyvox. s/p resection of the metatarsal. Will follow-up with podiatry. continue dressing. No bleeding noted. PT evaluation appreciated. CKD; creatinine is stable at 1.3. Elevated LFTs ; patient with previous history of fatty liver and mildly elevated LFTs .GI evaluation appreciated. Patient will need outpatient colonoscopy and further workup for anemia .Hepatitis panel is negative. CT scan revealed fatty infiltration. awaiting authorization for rehabilitation placement. Upon discharge patient will follow up with Dr. Chavez. 04/22/17 15:24
--- NOTE | 2017-04-22 14:50 | CP.PCM.PN ---
Subjective - Date & Time of Evaluation Date of Evaluation: 04/22/17 Time of Evaluation: 12:00 - Subjective Subjective: Dr. Rodríguez Service Patient seen and examined at bedside. There were no acute events as per nursing staff. Patient is intubated and sedated, does not tolerate weaning as he becomes severely agitated. ROS could not be obtained. Objective - Vital Signs/Intake and Output Vital Signs (last 24 hours): Temp Pulse Resp BP Pulse Ox 97.3 F L 88 18 115/62 94 L 04/22/17 07:58 04/22/17 09:54 04/22/17 07:58 04/22/17 09:54 04/22/17 07:58 Intake and Output: 04/22/17 04/22/17 06:59 18:59 Intake Total 460 Output Total 780 Balance -320 - Medications Medications: Current Medications Acetaminophen (Tylenol 325mg Tab) 650 mg PO Q6H PRN PRN Reason: Pain, Mild (1-3) Aspirin (Ecotrin) 81 mg PO DAILY [facility] Last Admin: 04/22/17 09:55 Dose: 81 mg Benzonatate (Tessalon Perles) 100 mg PO TID PRN PRN Reason: cough Last Admin: 04/21/17 11:10 Dose: 100 mg Cyanocobalamin (Vitamin B12 1000 Mcg Tab) 500 mcg PO DAILY [facility] Last Admin: 04/22/17 09:54 Dose: 500 mcg Ferrous Sulfate (Feosol) 324 mg PO TID [facility] Last Admin: 04/22/17 14:04 Dose: 324 mg Folic Acid (Folic Acid) 1 mg PO DAILY [facility] Last Admin: 04/22/17 09:55 Dose: 1 mg Home Med (Home Med) 1 unit PO DAILY@1200 [facility] Last Admin: 04/22/17 12:18 Dose: 1 unit Sodium Chloride (Sodium Chloride 0.45%) 1,000 mls @ 75 mls/hr IV .[id number] [facility] Last Admin: 04/22/17 09:53 Dose: 75 mls/hr Linezolid (Zyvox 600mg/300ml D5w) 600 mg in 300 mls @ 200 mls/hr IVPB Q12 [facility] PRN Reason: Protocol Stop: 04/25/17 10:01 Last Admin: 04/22/17 09:49 Dose: 200 mls/hr Insulin Human Regular (Humulin R Low) 0 units SC ACHS [facility] PRN Reason: Protocol Last Admin: 04/22/17 12:19 Dose: 1 units Loperamide HCl (Imodium) 2 mg PO BID [facility] Last Admin: 04/22/17 09:56 Dose: 2 mg Megestrol Acetate (Megace) 40 mg PO DAILY [facility] Last Admin: 04/22/17 09:56 Dose: 40 mg Metoprolol Succinate (Toprol Xl) 25 mg PO DAILY [facility] Last Admin: 04/22/17 09:54 Dose: 25 mg Multivitamins/Minerals (Therapeutic-M Tab) 1 tab PO 0800 [facility] Last Admin: 04/22/17 08:51 Dose: 1 tab Mupirocin (Bactroban Ointment) 0 gm TOP BID [facility] Last Admin: 04/22/17 09:51 Dose: 1 applic Nystatin (Nystop Topical Powder) 0 gm TOP BID [facility] Last Admin: 04/22/17 09:52 Dose: 1 applic Ondansetron HCl (Zofran Inj) 4 mg IVP Q4H PRN PRN Reason: Nausea/Vomiting Last Admin: 04/19/17 13:40 Dose: 4 mg Pantoprazole Sodium (Protonix Ec Tab) 40 mg PO DAILY [facility] Last Admin: 04/22/17 09:52 Dose: 40 mg Sodium Bicarbonate (Sodium Bicarbonate Tab) 1,300 mg PO QID [facility] Last Admin: 04/22/17 14:04 Dose: 1,300 mg Vitamin A (Vitamin A & D Oint Ud Foilpak) 1 ea TOP Q8 PRN PRN Reason: Moisture Zinc Sulfate (Zinc Sulfate 220 Mg Cap) 220 mg PO DAILY [facility] Last Admin: 04/22/17 09:55 Dose: 220 mg - Labs Labs: 04/22/17 07:30 04/22/17 07:30 PT 13.6 SECONDS (9.4-12.5) H 04/17/17 06:30 INR 1.18 (0.93-1.08) H 04/17/17 06:30 APTT 33.0 Seconds (25.1-36.5) 04/10/17 16:05 - Constitutional Appears: Older Than Stated Age, Chronically Ill - Head Exam Head Exam: ATRAUMATIC, NORMAL INSPECTION, NORMOCEPHALIC - Eye Exam Eye Exam: EOMI, Normal appearance, PERRL Pupil Exam: NORMAL ACCOMODATION, PERRL - ENT Exam ENT Exam: Mucous Membranes Moist, Normal Exam - Respiratory Exam Respiratory Exam: Decreased Breath Sounds, Rhonchi, NORMAL BREATHING PATTERN - Cardiovascular Exam Cardiovascular Exam: REGULAR RHYTHM, +S1, +S2. absent: Murmur - GI/Abdominal Exam GI & Abdominal Exam: Soft, Normal Bowel Sounds. absent: Tenderness - Neurological Exam Neurological Exam: Altered - Skin Skin Exam: Dry, Intact, Normal Color, Warm
--- NOTE | 2017-04-23 01:44 | PN ---
DATE: 04/22/2017 SUBJECTIVE: The patient is in bed, in no acute distress, nontoxic. PHYSICAL EXAMINATION: VITAL SIGNS: Temperature is 97, blood pressure is 102/50, respiratory rate of 18. HEENT: Examination of HEENT is unremarkable. NECK: Supple. LUNGS: Have decreased breath sounds. HEART: Normal S1 and S2. ABDOMEN: Soft, nontender. LABORATORY DATA: Laboratory examination reveals a white count of 6.9, hemoglobin of 9, platelets of 198. Chemistries reveals a BUN of 14, creatinine of 1.4. LFTs are elevated. Urinalysis is noted. Microbiology reveals Klebsiella in the urine from 04/17/2017. Review of orders reveals the patient has Zyvox. ASSESSMENT AND PLAN: A 61-year-old female with severe sepsis with a right foot cellulitis, chronic osteomyelitis, status post partial resection, postoperative day #4, history of acute osteomyelitis of left foot, beta hemolytic streptococcus, diabetic, currently on Zyvox, will need 4 weeks. I would repeat CBC, SMA-18, sed rate, C-reactive protein. The patient with multiple allergies including ceftriaxone, clindamycin, penicillin, sulfamethoxazole and trimethoprim. Carroll Castellano MD
[2017-04-23 08:14] LABS: BASO # 0.01 K/mm3 (0.0-2.0); BASO % 0.2 % (0.0-3.0); EOS # 0.2 (0.0-0.7); EOS % 2.3 % (1.5-5.0); GRAN # 4.06 (1.4-6.5); GRAN % 61.4 % (50.0-68.0); HEMOGLOBIN 10.9 g/dL (12.0-16.0); LYMPH # 1.8 (1.2-3.4); LYMPH % 26.9 % (22.0-35.0); MEAN CELL VOLUME 93.6 fl (80.0-105.0); MEAN CORPUSCULAR HEMOGLOBIN 29.1 pg (25.0-35.0); MEAN CORPUSCULAR HGB CONC 31.1 g/dl (31.0-37.0); MEAN PLATELET VOLUME 9.9 fl (7.0-11.0); MONO # 0.6 (0.1-0.6); MONO % 9.2 % (1.0-6.0); RBC 3.75 10^6/uL (3.5-6.1); RED CELL DISTRIBUTION WIDTH 14.4 % (11.5-14.5); WHITE BLOOD COUNT 6.6 10^3/ul (4.5-11.0)
[2017-04-23] MEDS: Multivitamin With Minerals Tab PO SCH (08:25)
[2017-04-23] MEDS: Insulin Reg-LOW-Coverage SC SCH ×4 (08:25→22:00)
[2017-04-23 08:31] LABS: ALBUMIN 3.7 g/dL (3.0-4.8); CALCIUM 9.8 mg/dL (8.4-10.5)
--- NOTE | 2017-04-23 09:49 | CP.PCM.PN ---
<Ryan Herrera - Last Filed: 04/23/17 09:45> Subjective - Date & Time of Evaluation Date of Evaluation: 04/23/17 Time of Evaluation: 09:45 - Subjective Subjective: Podiatry Progress Note- Dr. Mattson 61 year old female patient seen and evaluated at bedside 4 day s/p right 2nd metatarsal resection. Patient is seen resting comfortably in bed, in NAD, and AA0x3. Patient reports of no acute overnight events. Patient denies of any pain to her right foot today. Denies of any F/N/V/C/SOB/CP/headache. No new pedal complains today. Objective - Vital Signs/Intake and Output Vital Signs (last 24 hours): Temp Pulse Resp BP Pulse Ox 97.8 F 83 18 132/56 L 98 04/23/17 07:42 04/23/17 07:42 04/23/17 07:42 04/23/17 07:42 04/23/17 07:42 Intake and Output: 04/23/17 04/23/17 06:59 18:59 Intake Total 360 Output Total 1000 Balance -640 - Medications Medications: Current Medications Acetaminophen (Tylenol 325mg Tab) 650 mg PO Q6H PRN PRN Reason: Pain, Mild (1-3) Aspirin (Ecotrin) 81 mg PO DAILY [facility] Last Admin: 04/22/17 09:55 Dose: 81 mg Benzonatate (Tessalon Perles) 100 mg PO TID PRN PRN Reason: cough Last Admin: 04/22/17 21:27 Dose: 100 mg Cyanocobalamin (Vitamin B12 1000 Mcg Tab) 500 mcg PO DAILY [facility] Last Admin: 04/22/17 09:54 Dose: 500 mcg Ferrous Sulfate (Feosol) 324 mg PO TID [facility] Last Admin: 04/22/17 17:00 Dose: 324 mg Folic Acid (Folic Acid) 1 mg PO DAILY [facility] Last Admin: 04/22/17 09:55 Dose: 1 mg Home Med (Home Med) 1 unit PO DAILY@1200 [facility] Last Admin: 04/22/17 12:18 Dose: 1 unit Sodium Chloride (Sodium Chloride 0.45%) 1,000 mls @ 75 mls/hr IV .[id number] [facility] Last Admin: 04/22/17 22:02 Dose: Not Given Linezolid (Zyvox 600mg/300ml D5w) 600 mg in 300 mls @ 200 mls/hr IVPB Q12 [facility] PRN Reason: Protocol Stop: 04/25/17 10:01 Last Admin: 04/22/17 21:23 Dose: 200 mls/hr Insulin Human Regular (Humulin R Low) 0 units SC ACHS [facility] PRN Reason: Protocol Last Admin: 04/23/17 08:25 Dose: Not Given Loperamide HCl (Imodium) 2 mg PO BID [facility] Last Admin: 04/22/17 17:02 Dose: 2 mg Megestrol Acetate (Megace) 40 mg PO DAILY [facility] Last Admin: 04/22/17 09:56 Dose: 40 mg Metoprolol Succinate (Toprol Xl) 25 mg PO DAILY [facility] Last Admin: 04/22/17 09:54 Dose: 25 mg Multivitamins/Minerals (Therapeutic-M Tab) 1 tab PO 0800 [facility] Last Admin: 04/23/17 08:25 Dose: 1 tab Mupirocin (Bactroban Ointment) 0 gm TOP BID [facility] Last Admin: 04/22/17 16:59 Dose: 1 applic Nystatin (Nystop Topical Powder) 0 gm TOP BID [facility] Last Admin: 04/22/17 17:01 Dose: 1 applic Ondansetron HCl (Zofran Inj) 4 mg IVP Q4H PRN PRN Reason: Nausea/Vomiting Last Admin: 04/19/17 13:40 Dose: 4 mg Pantoprazole Sodium (Protonix Ec Tab) 40 mg PO DAILY [facility] Last Admin: 04/22/17 09:52 Dose: 40 mg Sodium Bicarbonate (Sodium Bicarbonate Tab) 1,300 mg PO QID [facility] Last Admin: 04/22/17 21:23 Dose: 1,300 mg Vitamin A (Vitamin A & D Oint Ud Foilpak) 1 ea TOP Q8 PRN PRN Reason: Moisture Zinc Sulfate (Zinc Sulfate 220 Mg Cap) 220 mg PO DAILY [facility] Last Admin: 04/22/17 09:55 Dose: 220 mg - Labs Labs: 04/23/17 07:50 04/23/17 07:50 PT 13.6 SECONDS (9.4-12.5) H 04/17/17 06:30 INR 1.18 (0.93-1.08) H 04/17/17 06:30 APTT 33.0 Seconds (25.1-36.5) 04/10/17 16:05 - Constitutional Appears: Well, Non-toxic, No Acute Distress - Extremities Exam Additional comments: Lower extremity focused examination: Vasc: DP/PT pulses palpable 2/4 B/L. Temperature gradient warm to warm. CFT < 3 sec to all digits, no pitting or non-pitting edema noted Derm: Surgical site appears intact with no dehiscence, no active drainage, no periwound erythema, no clinical suspicion of active infection, Additional superficial ulceration noted to left lateral malleolus with mixed fibrogranular base; periwound negative for erythema; no malodor, drainage, purulence, tunneling or undermining Neuro: Protective sensation is grossly intact B/L Ortho: Mild tenderness to palpation of right foot interspace ulceration. Left ankle ulceration mildly tender - Neurological Exam Neurological Exam: Alert, Awake, Oriented x3 - Psychiatric Exam Psychiatric exam: Normal Affect, Normal Mood Assessment and Plan - Assessment and Plan (Free Text) Assessment: 61 year old female patient seen and evaluated at bedside 4 days s/p right 2nd metatarsal resection. Plan: Pt seen and evaluated at bedside Discussed with attending Dr. Mattson Labs and vitals reviewed- afebrile, WBC 6.6 Intra-op wound cultures - no growth Bilateral ulcerations cleansed with saline Right foot surgical site dressed with betadine, DSD Left ankle ulceration dressed with maxorb, Optifoam Continue Multipodus boots while in bed Arterial duplex scan - mildly abnormal CASSIDY MRI of the R foot: marrow edema of 2nd metatarsal consistent with OM; strong clinical suspicion of OM Continue IV abx as per ID - Zyvox Pt is allowed PWB to right heel - has own Darco wound shoes which may be used for ambulation Patient is stable from podiatry standpoint Podiatry will continue to follow patient while in house <Leatha Mattson - Last Filed: 04/23/17 14:58> Objective - Vital Signs/Intake and Output Vital Signs (last 24 hours): Temp Pulse Resp BP Pulse Ox 97.8 F 83 18 132/56 L 98 04/23/17 07:42 04/23/17 10:55 04/23/17 07:42 04/23/17 10:55 04/23/17 07:42 Intake and Output: 04/23/17 04/23/17 06:59 18:59 Intake Total 360 Output Total 1000 Balance -640 - Medications Medications: Current Medications Acetaminophen (Tylenol 325mg Tab) 650 mg PO Q6H PRN PRN Reason: Pain, Mild (1-3) Aspirin (Ecotrin) 81 mg PO DAILY [facility] Last Admin: 04/23/17 10:55 Dose: 81 mg Benzonatate (Tessalon Perles) 100 mg PO TID PRN PRN Reason: cough Last Admin: 04/22/17 21:27 Dose: 100 mg Cyanocobalamin (Vitamin B12 1000 Mcg Tab) 500 mcg PO DAILY [facility] Last Admin: 04/23/17 10:55 Dose: 500 mcg Ferrous Sulfate (Feosol) 324 mg PO TID [facility] Last Admin: 04/23/17 14:36 Dose: 324 mg Folic Acid (Folic Acid) 1 mg PO DAILY [facility] Last Admin: 04/23/17 10:55 Dose: 1 mg Home Med (Home Med) 1 unit PO DAILY@1200 [facility] Last Admin: 04/23/17 12:43 Dose: 1 unit Linezolid (Zyvox 600mg/300ml D5w) 600 mg in 300 mls @ 200 mls/hr IVPB Q12 [facility] PRN Reason: Protocol Stop: 04/25/17 10:01 Last Admin: 04/23/17 10:54 Dose: 200 mls/hr Insulin Human Regular (Humulin R Low) 0 units SC ACHS [facility] PRN Reason: Protocol Last Admin: 04/23/17 12:18 Dose: 2 units Loperamide HCl (Imodium) 2 mg PO BID [facility] Last Admin: 04/23/17 10:55 Dose: 2 mg Megestrol Acetate (Megace) 40 mg PO DAILY [facility] Last Admin: 04/23/17 10:55 Dose: 40 mg Metoprolol Succinate (Toprol Xl) 25 mg PO DAILY [facility] Last Admin: 04/23/17 10:55 Dose: 25 mg Multivitamins/Minerals (Therapeutic-M Tab) 1 tab PO 0800 [facility] Last Admin: 04/23/17 08:25 Dose: 1 tab Mupirocin (Bactroban Ointment) 0 gm TOP BID [facility] Last Admin: 04/23/17 12:18 Dose: 1 applic Nystatin (Nystop Topical Powder) 0 gm TOP BID [facility] Last Admin: 04/23/17 12:18 Dose: 1 applic Ondansetron HCl (Zofran Inj) 4 mg IVP Q4H PRN PRN Reason: Nausea/Vomiting Last Admin: 04/19/17 13:40 Dose: 4 mg Pantoprazole Sodium (Protonix Ec Tab) 40 mg PO DAILY [facility] Last Admin: 04/23/17 10:54 Dose: 40 mg Sodium Bicarbonate (Sodium Bicarbonate Tab) 1,300 mg PO QID [facility] Last Admin: 04/23/17 14:36 Dose: 1,300 mg Vitamin A (Vitamin A & D Oint Ud Foilpak) 1 ea TOP Q8 PRN PRN Reason: Moisture Zinc Sulfate (Zinc Sulfate 220 Mg Cap) 220 mg PO DAILY [facility] Last Admin: 04/23/17 10:54 Dose: 220 mg - Labs Labs: 04/23/17 07:50 04/23/17 07:50 PT 13.6 SECONDS (9.4-12.5) H 04/17/17 06:30 INR 1.18 (0.93-1.08) H 04/17/17 06:30 APTT 33.0 Seconds (25.1-36.5) 04/10/17 16:05 Attending/Attestation - Attestation I have personally seen and examined this patient.: Yes I have fully participated in the care of the patient.: Yes I have reviewed all pertinent clinical information, including history, physical exam and plan: Yes
[2017-04-23] MEDS: Linezolid 600 mg in D5W 300 ml 600 MG/300 ML BAG IVPB SCH ×2 (10:54→21:36)
[2017-04-23] MEDS: Pantoprazole 40 mg EC Tab PO SCH (10:54)
[2017-04-23] MEDS: Metoprolol Succinate 25 mg XL Tab PO SCH (10:55)
[2017-04-23] MEDS: Nystatin 100,000 Units/gm Topical Pow(15 gm) TOP SCH ×2 (12:18→18:37)
[2017-04-23] MEDS: VELTASSA 8.4 GM PO SCH (12:43)
[2017-04-23 20:03] VITALS: O2SAT 100
--- NOTE | 2017-04-23 20:06 | CP.PCM.PN ---
Subjective - Date & Time of Evaluation Date of Evaluation: 04/23/17 Time of Evaluation: 11:05 - Subjective Subjective: Comfortable, no fevers. Objective - Vital Signs/Intake and Output Vital Signs (last 24 hours): Temp Pulse Resp BP Pulse Ox 97.8 F 83 18 132/56 L 98 04/23/17 07:42 04/23/17 07:42 04/23/17 07:42 04/23/17 07:42 04/23/17 07:42 Intake and Output: 04/23/17 04/23/17 06:59 18:59 Intake Total 360 Output Total 1000 Balance -640 - Medications Medications: Current Medications Acetaminophen (Tylenol 325mg Tab) 650 mg PO Q6H PRN PRN Reason: Pain, Mild (1-3) Aspirin (Ecotrin) 81 mg PO DAILY [facility] Last Admin: 04/22/17 09:55 Dose: 81 mg Benzonatate (Tessalon Perles) 100 mg PO TID PRN PRN Reason: cough Last Admin: 04/22/17 21:27 Dose: 100 mg Cyanocobalamin (Vitamin B12 1000 Mcg Tab) 500 mcg PO DAILY [facility] Last Admin: 04/22/17 09:54 Dose: 500 mcg Ferrous Sulfate (Feosol) 324 mg PO TID [facility] Last Admin: 04/22/17 17:00 Dose: 324 mg Folic Acid (Folic Acid) 1 mg PO DAILY [facility] Last Admin: 04/22/17 09:55 Dose: 1 mg Home Med (Home Med) 1 unit PO DAILY@1200 [facility] Last Admin: 04/22/17 12:18 Dose: 1 unit Sodium Chloride (Sodium Chloride 0.45%) 1,000 mls @ 75 mls/hr IV .[id number] [facility] Last Admin: 04/22/17 22:02 Dose: Not Given Linezolid (Zyvox 600mg/300ml D5w) 600 mg in 300 mls @ 200 mls/hr IVPB Q12 [facility] PRN Reason: Protocol Stop: 04/25/17 10:01 Last Admin: 04/22/17 21:23 Dose: 200 mls/hr Insulin Human Regular (Humulin R Low) 0 units SC ACHS [facility] PRN Reason: Protocol Last Admin: 04/23/17 08:25 Dose: Not Given Loperamide HCl (Imodium) 2 mg PO BID [facility] Last Admin: 04/22/17 17:02 Dose: 2 mg Megestrol Acetate (Megace) 40 mg PO DAILY [facility] Last Admin: 04/22/17 09:56 Dose: 40 mg Metoprolol Succinate (Toprol Xl) 25 mg PO DAILY [facility] Last Admin: 04/22/17 09:54 Dose: 25 mg Multivitamins/Minerals (Therapeutic-M Tab) 1 tab PO 0800 [facility] Last Admin: 04/23/17 08:25 Dose: 1 tab Mupirocin (Bactroban Ointment) 0 gm TOP BID [facility] Last Admin: 04/22/17 16:59 Dose: 1 applic Nystatin (Nystop Topical Powder) 0 gm TOP BID [facility] Last Admin: 04/22/17 17:01 Dose: 1 applic Ondansetron HCl (Zofran Inj) 4 mg IVP Q4H PRN PRN Reason: Nausea/Vomiting Last Admin: 04/19/17 13:40 Dose: 4 mg Pantoprazole Sodium (Protonix Ec Tab) 40 mg PO DAILY [facility] Last Admin: 04/22/17 09:52 Dose: 40 mg Sodium Bicarbonate (Sodium Bicarbonate Tab) 1,300 mg PO QID [facility] Last Admin: 04/22/17 21:23 Dose: 1,300 mg Vitamin A (Vitamin A & D Oint Ud Foilpak) 1 ea TOP Q8 PRN PRN Reason: Moisture Zinc Sulfate (Zinc Sulfate 220 Mg Cap) 220 mg PO DAILY [facility] Last Admin: 04/22/17 09:55 Dose: 220 mg - Labs Labs: 04/23/17 07:50 04/23/17 07:50 PT 13.6 SECONDS (9.4-12.5) H 04/17/17 06:30 INR 1.18 (0.93-1.08) H 04/17/17 06:30 APTT 33.0 Seconds (25.1-36.5) 04/10/17 16:05 - Constitutional Appears: Non-toxic - Head Exam Head Exam: NORMAL INSPECTION - Neck Exam Neck Exam: absent: Meningismus - Respiratory Exam Respiratory Exam: Decreased Breath Sounds - Cardiovascular Exam Cardiovascular Exam: +S1, +S2 - GI/Abdominal Exam GI & Abdominal Exam: absent: Soft, Tenderness Assessment and Plan - Assessment and Plan (Free Text) Plan: Assessment severe sepsis due to right foot cellulitis with chronic osteomyelitis S/P partial resection POD #5 history of Acute osteomyelitis of the left foot; growing beta hemolytic strep DM Plan concerned that patient developed rash while on Zyvox and Merrem but rash is improved and has not recurred since re-introducing Zyvox - will continue Zyvox and continue to observe if she still develops rash on it will need 4 weeks with weekly ESR, CRP, CBC, CMP, CPK levels (has had one week of antibiotics already) - follow up OR pathology; OR cultures negative so far but the patient had been on antibiotics prior to surgery
--- NOTE | 2017-04-24 04:00 | CP.PCM.PN ---
<Wu Monet - Last Filed: 04/24/17 03:55> Subjective - Date & Time of Evaluation Date of Evaluation: 04/23/17 Time of Evaluation: 07:45 - Subjective Subjective: Patient seen and examined at bedside in no acute distress. Patient states she slept well and has no pain from her lower extremities. States she has no complaints at this time. Denies nausea, vomiting, diarrhea, shortness of breath , chest pain, headaches, fevers, coughs, chills. Objective - Vital Signs/Intake and Output Vital Signs (last 24 hours): Temp Pulse Resp BP Pulse Ox 98.4 F 88 18 153/73 H 100 04/24/17 00:00 04/24/17 00:00 04/24/17 00:00 04/24/17 00:00 04/24/17 00:00 Intake and Output: 04/23/17 04/24/17 18:59 06:59 Intake Total 120 Balance 120 - Medications Medications: Current Medications Acetaminophen (Tylenol 325mg Tab) 650 mg PO Q6H PRN PRN Reason: Pain, Mild (1-3) Aspirin (Ecotrin) [address] [facility] Last Admin: 04/23/17 10:55 Dose: 81 mg Benzonatate (Tessalon Perles) 100 mg PO TID PRN PRN Reason: cough Last Admin: 04/22/17 21:27 Dose: 100 mg Cyanocobalamin (Vitamin B12 1000 Mcg Tab) [address] [facility] Last Admin: 04/23/17 10:55 Dose: 500 mcg Ferrous Sulfate (Feosol) [address] [facility] Last Admin: 04/23/17 18:37 Dose: 324 mg Folic Acid (Folic Acid) [address] [facility] Last Admin: 04/23/17 10:55 Dose: 1 mg Home Med (Home Med) 1 unit PO DAILY@1200 [facility] Last Admin: 04/23/17 12:43 Dose: 1 unit Linezolid (Zyvox 600mg/300ml D5w) 600 mg in 300 mls @ 200 mls/hr IVPB Q12 [facility] PRN Reason: Protocol Stop: 04/25/17 10:01 Last Admin: 04/23/17 21:36 Dose: 200 mls/hr Insulin Human Regular (Humulin R Low) [address] [facility] PRN Reason: Protocol Last Admin: 04/23/17 22:00 Dose: Not Given Loperamide HCl (Imodium) [address] [facility] Last Admin: 04/23/17 20:36 Dose: Not Given Megestrol Acetate (Megace) [address] [facility] Last Admin: 04/23/17 10:55 Dose: 40 mg Metoprolol Succinate (Toprol Xl) [address] [facility] Last Admin: 04/23/17 10:55 Dose: 25 mg Multivitamins/Minerals (Therapeutic-M Tab) [address] [facility] Last Admin: 04/23/17 08:25 Dose: 1 tab Mupirocin (Bactroban Ointment) [address] [facility] Last Admin: 04/23/17 20:26 Dose: 1 applic Nystatin (Nystop Topical Powder) [address] [facility] Last Admin: 04/23/17 18:37 Dose: 1 applic Ondansetron HCl (Zofran Inj) 4 mg IVP Q4H PRN PRN Reason: Nausea/Vomiting Last Admin: 04/19/17 13:40 Dose: 4 mg Pantoprazole Sodium (Protonix Ec Tab) [address] [facility] Last Admin: 04/23/17 10:54 Dose: 40 mg Sodium Bicarbonate (Sodium Bicarbonate Tab) 1,[address] [facility] Last Admin: 04/23/17 21:36 Dose: 1,300 mg Vitamin A (Vitamin A & D Oint Ud Foilpak) 1 ea TOP Q8 PRN PRN Reason: Moisture Zinc Sulfate (Zinc Sulfate 220 Mg Cap) [address] [facility] Last Admin: 04/23/17 10:54 Dose: 220 mg - Labs Labs: 04/23/17 07:50 04/23/17 07:50 PT 13.6 SECONDS (9.4-12.5) H 04/17/17 06:30 INR 1.18 (0.93-1.08) H 04/17/17 06:30 APTT 33.0 Seconds (25.1-36.5) 04/10/17 16:05 - Constitutional Appears: Non-toxic, No Acute Distress - Head Exam Head Exam: ATRAUMATIC, NORMAL INSPECTION, NORMOCEPHALIC - Eye Exam Eye Exam: EOMI, Normal appearance - ENT Exam ENT Exam: Mucous Membranes Moist, Normal Exam - Neck Exam Neck Exam: Full ROM, Normal Inspection - Respiratory Exam Respiratory Exam: Clear to Ausculation Bilateral, NORMAL BREATHING PATTERN. absent: Rhonchi, Wheezes - Cardiovascular Exam Cardiovascular Exam: REGULAR RHYTHM, +S1, +S2 - GI/Abdominal Exam GI & Abdominal Exam: Soft, Normal Bowel Sounds - Extremities Exam Extremities Exam: Full ROM - Back Exam Back Exam: NORMAL INSPECTION - Neurological Exam Neurological Exam: Alert, Awake, Oriented x3 - Psychiatric Exam Psychiatric exam: Normal Mood - Skin Skin Exam: Intact, Warm Additional comments: Both feet noted to be wrapped, without drainage. Patient noted to have a left malleolus ulceration 1.5 x 1.3 Erythema noted on sacrum bilaterally, no skin breakage Assessment and Plan - Assessment and Plan (Free Text) Assessment: 61 F with PMHx of Diabetes mellitus type 2, anemia, peripheral arterial disease , GERD, osteomyelitis, esophageal stenosis, hypertension, chronic kidney disease , CAD, and arthritis who presents to the ED from the wound care clinic with Dr. Raymond for osteomyelitis of the right foot. Now s/p R 2nd metatarsal partial resection. Plan: Osteomyelitis R 2nd metatarsal s/p partial resection - Continue Zyvox - IVF discontinued due to increasing sodium levels - Intra-op wound cultures - preliminary no growth - Bilateral ulcerations cleansed with saline - Right foot surgical site dressed with betadine, DSD - Left ankle ulceration dressed with bactroban and Optifoam - Afebrile; no leukocytosis - PT Eval/Treat for gait training and weakness; partial weight bearing - ID consulted - Dr. Nair - pt will need 4 weeks of abx therapy with weekly CBC , CMP, CRP, ESR and CPK - Podiatry consulted - Dr. Mattson, Continue Multipodus boots while in bed. Pt is allowed PWB to right heel - has own Darco wound shoes which may be used for ambulation Patient is stable from podiatry standpoint Rash - Improved and has not recurred since removing merrem from antibiotic regimen and starting zyvox Chronic diarrhea -improving, states she had one episode yesterday continue with loperamide. Anemia -H&H stable -Continue to monitor FREDY - back to baseline -Continue IVF hydration and PO hydration -Nephrology consulted and on board Hypernatremia -Discontinue hypoosmotic IVF - 1/2 NS @75cc/hr -Encourage PO water intake Elevated LFTs -Trending up, will closely monitor -Autoimmune workup pending; per GI -Viral hep panel negative; Abd US and CT A/P showed increased echogenicity, likely fatty liver -GI on consult; appreciate recs Diabetes mellitus type 2 -low dose sliding scale -Consistent carb diet -Fingersticks ACHS CAD -Continue ASA 81mg po daily GI/DVT prophylaxis -Protonix -Heparin DISPO: Horacio at [facility] where patient chose to go is aware. Awaiting decision with [employer]. Patient seen, discussed, and reviewed with attending Dr. Lenore Monet PGY1 <Idalia Grover - Last Filed: 04/24/17 09:27> Objective - Vital Signs/Intake and Output Vital Signs (last 24 hours): Temp Pulse Resp BP Pulse Ox 98.6 F 86 18 145/73 100 04/24/17 07:00 04/24/17 07:00 04/24/17 07:00 04/24/17 07:00 04/24/17 07:00 Intake and Output: 04/24/17 04/24/17 06:59 18:59 Intake Total 840 Balance 840 - Medications Medications: Current Medications Acetaminophen (Tylenol 325mg Tab) 650 mg PO Q6H PRN PRN Reason: Pain, Mild (1-3) Aspirin (Ecotrin) [address] [facility] Last Admin: 04/23/17 10:55 Dose: 81 mg Benzonatate (Tessalon Perles) 100 mg PO TID PRN PRN Reason: cough Last Admin: 04/22/17 21:27 Dose: 100 mg Cyanocobalamin (Vitamin B12 1000 Mcg Tab) [address] [facility] Last Admin: 04/23/17 10:55 Dose: 500 mcg Ferrous Sulfate (Feosol) [address] [facility] Last Admin: 04/23/17 18:37 Dose: 324 mg Folic Acid (Folic Acid) [address] [facility] Last Admin: 04/23/17 10:55 Dose: 1 mg Home Med (Home Med) 1 unit PO DAILY@1200 [facility] Last Admin: 04/23/17 12:43 Dose: 1 unit Linezolid (Zyvox 600mg/300ml D5w) 600 mg in 300 mls @ 200 mls/hr IVPB Q12 [facility] PRN Reason: Protocol Stop: 04/25/17 10:01 Last Admin: 04/23/17 21:36 Dose: 200 mls/hr Insulin Human Regular (Humulin R Low) [address] [facility] PRN Reason: Protocol Last Admin: 04/24/17 09:11 Dose: Not Given Loperamide HCl (Imodium) [address] [facility] Last Admin: 04/23/17 20:36 Dose: Not Given Megestrol Acetate (Megace) [address] [facility] Last Admin: 04/23/17 10:55 Dose: 40 mg Metoprolol Succinate (Toprol Xl) [address] [facility] Last Admin: 04/23/17 10:55 Dose: 25 mg Multivitamins/Minerals (Therapeutic-M Tab) [address] [facility] Last Admin: 04/24/17 08:37 Dose: 1 tab Mupirocin (Bactroban Ointment) [address] [facility] Last Admin: 04/23/17 20:26 Dose: 1 applic Nystatin (Nystop Topical Powder) [address] [facility] Last Admin: 04/23/17 18:37 Dose: 1 applic Ondansetron HCl (Zofran Inj) 4 mg IVP Q4H PRN PRN Reason: Nausea/Vomiting Last Admin: 04/19/17 13:40 Dose: 4 mg Pantoprazole Sodium (Protonix Ec Tab) [address] [facility] Last Admin: 04/23/17 10:54 Dose: 40 mg Sodium Bicarbonate (Sodium Bicarbonate Tab) 1,[address] [facility] Last Admin: 04/23/17 21:36 Dose: 1,300 mg Vitamin A (Vitamin A & D Oint Ud Foilpak) 1 ea TOP Q8 PRN PRN Reason: Moisture Zinc Sulfate (Zinc Sulfate 220 Mg Cap) [address] [facility] Last Admin: 04/23/17 10:54 Dose: 220 mg - Labs Labs: 04/23/17 07:50 04/23/17 07:50 PT 13.6 SECONDS (9.4-12.5) H 04/17/17 06:30 INR 1.18 (0.93-1.08) H 04/17/17 06:30 APTT 33.0 Seconds (25.1-36.5) 04/10/17 16:05 Attending/Attestation - Attestation I have personally seen and examined this patient.: Yes I have fully participated in the care of the patient.: Yes I have reviewed all pertinent clinical information, including history, physical exam and plan: Yes Notes (Text): I have seen and examined the patient at bedside. Agree with the above note with the following additions/ exceptions: Briefly this is 61 year old female with history of DM-2,chronic anemia, chronic diarrhea, peripheral arterial disease, esophageal stenosis, hypertension, chronic kidney disease and arthritis was sent by hired hand for evaluation of osteomyelitis of right second metatarsal. She had severe sepsis secondary to osteomyelitis of right foot. Wound culture is growing beta hemolytic group B. Patient is s/p resection of the metatarsal. Currently on IV zyvox. Patient can do partial weight bearing of right heel. Creatinine is stable. Darco wounds shoes recommended for ambulation. PT recommended [facility]. Awaiting placement. Patient will need outpatient colonoscopy and further workup for anemia .Hepatitis panel is negative. CT scan revealed fatty infiltration. Upon discharge patient will follow up with Dr. Chavez. Dr Idalia Grover
[2017-04-24] MEDS: Multivitamin With Minerals Tab PO SCH (08:37)
--- NOTE | 2017-04-24 08:46 | OP ---
PROCEDURE DATE: 04/19/2017 SURGEON: Jose Raymond DPM ELEMENTARY CLASSROOM TEACHER: Ryan Herrera DPM, PGY-1 ANESTHESIOLOGIST: Dr. Grover. ANESTHESIA: IV sedation with local. PREOPERATIVE DIAGNOSIS: Right second metatarsal osteomyelitis. POSTOPERATIVE DIAGNOSIS: Right second metatarsal osteomyelitis. NAME OF THE PROCEDURE: Right partial second metatarsal resection. INDICATIONS: The patient is a 61-year-old female with the above diagnosis. The patient has exhausted conservative treatment at this time and now requires surgical intervention. The patient signed the consent after careful explanation of risks, benefits, complications, and alternatives of the surgical procedure. No guarantees were given nor implied. N.p.o. status was confirmed prior to taking the patient to the OR. PREPARATION: The patient was brought to the operating room and placed on the operating room table in supine position. After induction of the IV sedation, the patient received a total of 19 mL of 1:1 mixture of 0.5% Marcaine and 1% lidocaine plain in a local block fashion to the right ankle. Once the local anesthesia was achieved, the foot was then prepped and draped in usual sterile manner. No tourniquet was used during this procedure. DESCRIPTION OF PROCEDURE: Attention was drawn to the dorsal aspect of the head and the shaft of the second metatarsal where an incision was drawn out using a marking pen. Using a #15 blade, an incision was made over the joint line down to the level of the bone. All the neurovascular structures were visualized and was extracted from the field using a retractor. At this point, the second metatarsal mid shaft was visualized. Using a sagittal saw, the mid shaft of the second metatarsal was resected and passed off from the operative field and was sent to pathology. The surgical site was then irrigated using pulse lavage. At this time, the subcutaneous tissue was brought back together using 3-0 Vicryl and 3-0 Prolene was used to bring back the skin. The incision site on the right foot was then dressed with Betadine-soaked Adaptic, 4x4, Kerlix. Immediate capillary refill time was noted to the right foot remaining digit. The attending was present during the case. POSTOPERATIVE CONDITION: The patient tolerated the anesthesia and the procedure well and was escorted to the recovery room with vital signs stable and neurovascular status intact to the right foot. The patient was provided Darco wedge shoes and was educated to weight bear as tolerated. All the postoperative instructions were provided to the patient prior to going to surgery. The patient will return to the hospital floor where she will be followed up on a daily basis. Ryan Herrera DPM Jose Raymond DPM MIRELA
[2017-04-24] MEDS: Insulin Reg-LOW-Coverage SC SCH ×3 (09:11→17:24)
[2017-04-24 11:11] LABS: ALB/GLOB RATIO 1.1 (1.1-1.8); ALBUMIN 3.9 g/dL (3.0-4.8); CALCIUM 10.3 mg/dL (8.4-10.5)
[2017-04-24] MEDS: Pantoprazole 40 mg EC Tab PO SCH (11:30)
[2017-04-24] MEDS: Metoprolol Succinate 25 mg XL Tab PO SCH (11:30)
[2017-04-24] MEDS: Nystatin 100,000 Units/gm Topical Pow(15 gm) TOP SCH ×2 (11:34→18:46)
[2017-04-24] MEDS: Linezolid 600 mg in D5W 300 ml 600 MG/300 ML BAG IVPB SCH (11:36)
[2017-04-24 12:09] LABS: BASO # 0.01 K/mm3 (0.0-2.0); BASO % 0.2 % (0.0-3.0); EOS # 0.1 (0.0-0.7); EOS % 1.7 % (1.5-5.0); GRAN # 4.18 (1.4-6.5); HEMOGLOBIN 10.4 g/dL (12.0-16.0); LYMPH # 1.5 (1.2-3.4); LYMPH % 22.1 % (22.0-35.0); MEAN CELL VOLUME 92.1 fl (80.0-105.0); MEAN CORPUSCULAR HEMOGLOBIN 29.2 pg (25.0-35.0); MEAN CORPUSCULAR HGB CONC 31.7 g/dl (31.0-37.0); MEAN PLATELET VOLUME 9.6 fl (7.0-11.0); MONO # 0.9 (0.1-0.6); RBC 3.56 10^6/uL (3.5-6.1); WHITE BLOOD COUNT 6.6 10^3/ul (4.5-11.0)
--- NOTE | 2017-04-24 12:52 | CP.PCM.PN ---
Subjective - Date & Time of Evaluation Date of Evaluation: 04/23/17 Time of Evaluation: 12:50 - Subjective Subjective: Follow up Nephrology Consultation: Assessment: stable Acute Kidney Injury (N17.9) likely due to pre-renal state, decreased oral intake , dehydration, sepsis: improved Hypernatremia, hyperkalemia, acidosis Diabetic chronic Kidney Disease (E11.22) Hypertensive Chronic Kidney Disease (I12.9) Chronic Kidney Disease (N18.3) Stage 3 Anemia (D64.9), Secondary Hyperparathyroidism (E21.1), Vit D def, HTN (I12.9) hearing loss, esophageal stenosis, basal cell CA on nasal skin s/p removal Plan No acute need for renal replacement therapy at this time. Hypertension control with meds as ordered. Patient not on ACEI/ARB due to FREDY and hyperkalemia. continue with beta-lisandro Monitor Input/Output, daily weights and renal function with basic metabolic panel resume Sodium bicarb 1300 mg qid, iron and MVI. dose of ananesp 04/11/17. consider PRBC transfusion also on vit D monthly Dose meds/antibiotics for improved GFR. Avoid fleets enema/magnesium based laxatives. Avoid nephrotoxins/NSAIDs/ iodinated contrast (unless needed emergently) Glycemic control Further work up/management as per primary team Thanks for allowing me to participate in care of your patient. Will follow patient with you. Please call if any Qs Dr Javier Reyes Office: [phone] HPI: Pt is a 61 y/o F with hx of diabetes Mellitus ( x 8-9 years) with retinopathy, hypertension, hearing loss, esophageal stenosis, chronic anemia, basal cell CA on nasal skin s/p removal admitted to [facility] 09/07/16-09/13 with left foot worsening wound infection, sepsis and osteomyelitis was seen for FREDY which improved with IVF. Her GN work up was negative. now has CKD stage 3. recently seen in office. now readmitted for Sepsis with osteomyelitis renal consult for FREDY management Denies chest pain, palpitation, shortness of breath, leg swelling Has chronic loose stool many times 2-3 times/day. General Appearance: Comfortable, in no acute respiratory distress, co-operative . thin built. Vitals reviewed and noted Head; Atraumatic, normocephalic ENT: no ulcers no thrush. Tongue is midline. Oropharynx: no rash or ulcers. Hard of hearing. Uses hearing aid. EYES: Pupils are equal, round and reactive to light accommodation. Eye muscles and extraocular movement intact. Sclera is anicteric. Neck; supple no lymphadenopathy, no thyromegaly or bruit Lungs: Normal respiratory rate/effort. Breath sounds bilateral equal and clear Heart: normal rate. s1s2 normal. No rub or gallop. Extremities: no edema with wound dressed at foot. No varicose veins. Hand osteoarthritic deformities +. Neurological: Patient is alert, awake and oriented to person, place and time. No focal deficit. Strength bilateral appropriate and equal Skin: Warm and dry. Normal turgor. No rash. Palpitation: Normal elasticity for age Abdomen: Abdomen is soft. Bowel sounds +. There is no abdominal tenderness, no guarding/rigidity or organomegaly Psych: normal insight and normal affect/mood MSK: no joint tenderness or swelling. : kidney or bladder not palpable Labs/imaging reviewed. Past medical history, past surgical history, family history, social history, allergy reviewed and noted as below Family hx: no hx of CKD. Rest non-contributory Work up: 09/13/2016: GN serologies all negative, scleroderma work up neg, SPEP/LUDY neg Renal sono: b/l cortical atrophy. Small 1 cm Rt kidney simple cyst. Objective - Vital Signs/Intake and Output Vital Signs (last 24 hours): Temp Pulse Resp BP Pulse Ox 98.6 F 86 18 145/73 100 04/24/17 07:00 04/24/17 11:30 04/24/17 07:00 04/24/17 11:30 04/24/17 07:00 Intake and Output: 04/24/17 04/24/17 06:59 18:59 Intake Total 840 Balance 840 - Medications Medications: Current Medications Acetaminophen (Tylenol 325mg Tab) 650 mg PO Q6H PRN PRN Reason: Pain, Mild (1-3) Aspirin (Ecotrin) 81 mg PO DAILY [facility] Last Admin: 04/24/17 11:30 Dose: 81 mg Benzonatate (Tessalon Perles) 100 mg PO TID PRN PRN Reason: cough Last Admin: 04/22/17 21:27 Dose: 100 mg Cyanocobalamin (Vitamin B12 1000 Mcg Tab) 500 mcg PO DAILY [facility] Last Admin: 04/24/17 11:29 Dose: 500 mcg Ferrous Sulfate (Feosol) 324 mg PO TID [facility] Last Admin: 04/24/17 11:30 Dose: 324 mg Folic Acid (Folic Acid) 1 mg PO DAILY [facility] Last Admin: 04/24/17 11:29 Dose: 1 mg Home Med (Home Med) 1 unit PO DAILY@1200 [facility] Last Admin: 04/23/17 12:43 Dose: 1 unit Linezolid (Zyvox 600mg/300ml D5w) 600 mg in 300 mls @ 200 mls/hr IVPB Q12 [facility] PRN Reason: Protocol Stop: 04/25/17 10:01 Last Admin: 04/24/17 11:36 Dose: 200 mls/hr Insulin Human Regular (Humulin R Low) 0 units SC ACHS [facility] PRN Reason: Protocol Last Admin: 04/24/17 09:11 Dose: Not Given Loperamide HCl (Imodium) 2 mg PO BID [facility] Last Admin: 04/24/17 11:31 Dose: 2 mg Megestrol Acetate (Megace) 40 mg PO DAILY [facility] Last Admin: 04/24/17 11:31 Dose: 40 mg Metoprolol Succinate (Toprol Xl) 25 mg PO DAILY [facility] Last Admin: 04/24/17 11:30 Dose: 25 mg Multivitamins/Minerals (Therapeutic-M Tab) 1 tab PO 0800 [facility] Last Admin: 04/24/17 08:37 Dose: 1 tab Mupirocin (Bactroban Ointment) 0 gm TOP BID [facility] Last Admin: 04/23/17 20:26 Dose: 1 applic Nystatin (Nystop Topical Powder) 0 gm TOP BID [facility] Last Admin: 04/24/17 11:34 Dose: 1 applic Ondansetron HCl (Zofran Inj) 4 mg IVP Q4H PRN PRN Reason: Nausea/Vomiting Last Admin: 04/19/17 13:40 Dose: 4 mg Pantoprazole Sodium (Protonix Ec Tab) 40 mg PO DAILY [facility] Last Admin: 04/24/17 11:30 Dose: 40 mg Sodium Bicarbonate (Sodium Bicarbonate Tab) 1,300 mg PO QID [facility] Last Admin: 04/24/17 11:31 Dose: 1,300 mg Vitamin A (Vitamin A & D Oint Ud Foilpak) 1 ea TOP Q8 PRN PRN Reason: Moisture Zinc Sulfate (Zinc Sulfate 220 Mg Cap) 220 mg PO DAILY [facility] Last Admin: 04/24/17 11:29 Dose: 220 mg - Labs Labs: 04/24/17 12:00 04/24/17 10:34 PT 13.6 SECONDS (9.4-12.5) H 04/17/17 06:30 INR 1.18 (0.93-1.08) H 04/17/17 06:30 APTT 33.0 Seconds (25.1-36.5) 04/10/17 16:05
--- NOTE | 2017-04-24 12:52 | CP.PCM.PN ---
Subjective - Date & Time of Evaluation Date of Evaluation: 04/24/17 Time of Evaluation: 12:52 - Subjective Subjective: Follow up Nephrology Consultation: Assessment: stable Acute Kidney Injury (N17.9) likely due to pre-renal state, decreased oral intake , dehydration, sepsis: improved Hypernatremia, hyperkalemia, acidosis Diabetic chronic Kidney Disease (E11.22) Hypertensive Chronic Kidney Disease (I12.9) Chronic Kidney Disease (N18.3) Stage 3 Anemia (D64.9), Secondary Hyperparathyroidism (E21.1), Vit D def, HTN (I12.9) hearing loss, esophageal stenosis, basal cell CA on nasal skin s/p removal Plan No acute need for renal replacement therapy at this time. Hypertension control with meds as ordered. Patient not on ACEI/ARB due to FREDY and hyperkalemia. continue with beta-lisandro Monitor Input/Output, daily weights and renal function with basic metabolic panel resume Sodium bicarb 1300 mg qid, iron and MVI. dose of ananesp 04/11/17. consider PRBC transfusion also on vit D monthly Dose meds/antibiotics for improved GFR. Avoid fleets enema/magnesium based laxatives. Avoid nephrotoxins/NSAIDs/ iodinated contrast (unless needed emergently) Glycemic control Further work up/management as per primary team pt stable for d/c from renal perspective Thanks for allowing me to participate in care of your patient. Will follow patient with you. Please call if any Qs Dr Javier Reyes Office: [phone] HPI: Pt is a 61 y/o F with hx of diabetes Mellitus ( x 8-9 years) with retinopathy, hypertension, hearing loss, esophageal stenosis, chronic anemia, basal cell CA on nasal skin s/p removal admitted to [facility] 09/07/16-09/13 with left foot worsening wound infection, sepsis and osteomyelitis was seen for FREDY which improved with IVF. Her GN work up was negative. now has CKD stage 3. recently seen in office. now readmitted for Sepsis with osteomyelitis renal consult for FREDY management Denies chest pain, palpitation, shortness of breath, leg swelling Has chronic loose stool many times 2-3 times/day. General Appearance: Comfortable, in no acute respiratory distress, co-operative . thin built. Vitals reviewed and noted Head; Atraumatic, normocephalic ENT: no ulcers no thrush. Tongue is midline. Oropharynx: no rash or ulcers. Hard of hearing. Uses hearing aid. EYES: Pupils are equal, round and reactive to light accommodation. Eye muscles and extraocular movement intact. Sclera is anicteric. Neck; supple no lymphadenopathy, no thyromegaly or bruit Lungs: Normal respiratory rate/effort. Breath sounds bilateral equal and clear Heart: normal rate. s1s2 normal. No rub or gallop. Extremities: no edema with wound dressed at foot. No varicose veins. Hand osteoarthritic deformities +. Neurological: Patient is alert, awake and oriented to person, place and time. No focal deficit. Strength bilateral appropriate and equal Skin: Warm and dry. Normal turgor. No rash. Palpitation: Normal elasticity for age Abdomen: Abdomen is soft. Bowel sounds +. There is no abdominal tenderness, no guarding/rigidity or organomegaly Psych: normal insight and normal affect/mood MSK: no joint tenderness or swelling. : kidney or bladder not palpable Labs/imaging reviewed. Past medical history, past surgical history, family history, social history, allergy reviewed and noted as below Family hx: no hx of CKD. Rest non-contributory Work up: 09/13/2016: GN serologies all negative, scleroderma work up neg, SPEP/LUDY neg Renal sono: b/l cortical atrophy. Small 1 cm Rt kidney simple cyst. Objective - Vital Signs/Intake and Output Vital Signs (last 24 hours): Temp Pulse Resp BP Pulse Ox 98.6 F 86 18 145/73 100 04/24/17 07:00 04/24/17 11:30 04/24/17 07:00 04/24/17 11:30 04/24/17 07:00 Intake and Output: 04/24/17 04/24/17 06:59 18:59 Intake Total 840 Balance 840 - Medications Medications: Current Medications Acetaminophen (Tylenol 325mg Tab) 650 mg PO Q6H PRN PRN Reason: Pain, Mild (1-3) Aspirin (Ecotrin) 81 mg PO DAILY [facility] Last Admin: 04/24/17 11:30 Dose: 81 mg Benzonatate (Tessalon Perles) 100 mg PO TID PRN PRN Reason: cough Last Admin: 04/22/17 21:27 Dose: 100 mg Cyanocobalamin (Vitamin B12 1000 Mcg Tab) 500 mcg PO DAILY [facility] Last Admin: 04/24/17 11:29 Dose: 500 mcg Ferrous Sulfate (Feosol) 324 mg PO TID [facility] Last Admin: 04/24/17 11:30 Dose: 324 mg Folic Acid (Folic Acid) 1 mg PO DAILY [facility] Last Admin: 04/24/17 11:29 Dose: 1 mg Home Med (Home Med) 1 unit PO DAILY@1200 [facility] Last Admin: 04/23/17 12:43 Dose: 1 unit Linezolid (Zyvox 600mg/300ml D5w) 600 mg in 300 mls @ 200 mls/hr IVPB Q12 [facility] PRN Reason: Protocol Stop: 04/25/17 10:01 Last Admin: 04/24/17 11:36 Dose: 200 mls/hr Insulin Human Regular (Humulin R Low) 0 units SC ACHS [facility] PRN Reason: Protocol Last Admin: 04/24/17 09:11 Dose: Not Given Loperamide HCl (Imodium) 2 mg PO BID [facility] Last Admin: 04/24/17 11:31 Dose: 2 mg Megestrol Acetate (Megace) 40 mg PO DAILY [facility] Last Admin: 04/24/17 11:31 Dose: 40 mg Metoprolol Succinate (Toprol Xl) 25 mg PO DAILY [facility] Last Admin: 04/24/17 11:30 Dose: 25 mg Multivitamins/Minerals (Therapeutic-M Tab) 1 tab PO 0800 [facility] Last Admin: 04/24/17 08:37 Dose: 1 tab Mupirocin (Bactroban Ointment) 0 gm TOP BID [facility] Last Admin: 04/23/17 20:26 Dose: 1 applic Nystatin (Nystop Topical Powder) 0 gm TOP BID [facility] Last Admin: 04/24/17 11:34 Dose: 1 applic Ondansetron HCl (Zofran Inj) 4 mg IVP Q4H PRN PRN Reason: Nausea/Vomiting Last Admin: 04/19/17 13:40 Dose: 4 mg Pantoprazole Sodium (Protonix Ec Tab) 40 mg PO DAILY [facility] Last Admin: 04/24/17 11:30 Dose: 40 mg Sodium Bicarbonate (Sodium Bicarbonate Tab) 1,300 mg PO QID [facility] Last Admin: 04/24/17 11:31 Dose: 1,300 mg Vitamin A (Vitamin A & D Oint Ud Foilpak) 1 ea TOP Q8 [facility] PRN Reason: Moisture Zinc Sulfate (Zinc Sulfate 220 Mg Cap) 220 mg PO DAILY [facility] Last Admin: 04/24/17 11:29 Dose: 220 mg - Labs Labs: 04/24/17 12:00 04/24/17 10:34 PT 13.6 SECONDS (9.4-12.5) H 04/17/17 06:30 INR 1.18 (0.93-1.08) H 04/17/17 06:30 APTT 33.0 Seconds (25.1-36.5) 04/10/17 16:05
[2017-04-24] MEDS: VELTASSA 8.4 GM PO SCH (12:57)
--- NOTE | 2017-04-24 20:30 | PN ---
DATE: SUBJECTIVE: A 61-year-old female seen at bedside postop right second metatarsal resection secondary to osteomyelitis. The patient is resting comfortably with no complaints. She is afebrile and denies any fever, nausea, chills or shortness of breath. She is ambulating with her forefoot offloading shoe. The patient's vital signs were temperature of 98.6, pulse rate of 86, blood pressure of 125/73 , respiratory rate 18. Laboratory findings showed a white count of 6.6, hemoglobin of 10.4, hematocrit of 32.8, platelet count of 253. Most recent cultures taken in the operating room on 04/19/2017 reveals no wound culture growth and gram stain of no polymorphonuclear white blood cells and no organisms. Bone culture reveals no acute inflammation and no presence of osteomyelitis at the most proximal resected portion of bone. OBJECTIVE: Weakly palpable pedal pulses noted bilaterally; no pitting or nonpitting lower extremity edema noted. Surgical site on the dorsal and plantar aspect of the right foot at the second metatarsal region presents with all sutures coapted with no dehiscence; however, there is some serous drainage noted at the distal portion of the incision between the adjacent digits. There is no purulence. There is no edema. There is no cellulitic activity. ASSESSMENT: A 61-year-old diabetic female seen at bedside status post right second metatarsal resection secondary to osteomyelitis. PLAN: The patient was seen and evaluated at bedside. The patient's wound was cleansed with normal sterile saline and application of Betadine solution, nonadherent dry sterile dressing was applied to the right foot. There is noted to be a diabetic ulceration at the lateral malleoli of the left foot, which was cleansed with normal sterile saline and application of Bactroban and Optifoam with Maxorb was applied. We will continue with Multi-Podus boots. The patient is resting in bed at all times. Dr. Nair's note was read and appreciated. Dr. Raul Grover's note was read and appreciated. The patient will need 4 weeks of antibiotic therapy with weekly CBC, CMP, CRP, ESR and CPK. The patient is able to ambulate; however, there was some drainage noted on her dressing and we will monitor the area for increased drainage. There is increased drainage yesterday, we would discontinue ambulation and the patient will be off weightbearing. The patient will be seen and followed while in-house. Jose Raymond DPM
[2017-04-24 22:17] VITALS: BP 130/61; PULSE 98; RESP 20; TEMP 98.4
--- NOTE | 2017-04-25 02:02 | PN ---
DATE: SUBJECTIVE: The patient was seen early this morning in room 573, bed 3. OBJECTIVE: GENERAL: The patient is in bed, in no acute distress, nontoxic. VITAL SIGNS: On exam, temperature is 98, blood pressure is 130/60, respiratory rate 20, heart rate of 98. HEENT: Examination of HEENT unremarkable. LUNGS: Have decreased breath sounds. HEART: Normal S1, S2. ABDOMEN: Soft, nontender. LABORATORY EXAMINATION: Reveals a white count of 6.6, hemoglobin of 10, platelets of 253. Chemistries reveal a BUN of 23, creatinine of 1.4. Urinalysis is noted. Immunology is noted. Serology is noted. Microbiology is reviewed. Review of orders reveals the patient to be on Zyvox. ASSESSMENT AND PLAN: A 61-year-old female who is chronically ill, who was seen early this morning in room 573, bed 3 with severe sepsis due to right foot cellulitis with chronic osteomyelitis status post partial resection, postop day #6, and a history of acute osteomyelitis of left foot with Beta-hemolytic strep. Concerned about a rash and the patient was on Zyvox and meropenem; currently on Zyvox, will need 4 weeks, with CBC, SMA-18, sed rate, C-reactive protein, look for toxicities to Zyvox. Carroll Castellano MD
--- NOTE | 2017-04-25 05:02 | CP.PCM.DIS ---
Provider - Provider Date of Admission: 04/10/17 17:24 Attending physician: Idalia Grover MD Primary care physician: Xavier Salazar MD Consults: Infectious disease: Dr. Nair Nephrology: Dr. Reyes Podiatry: Dr. Mattson Vascular surgery: Dr. Najera Time Spent in preparation of Discharge (in minutes): 45 Diagnosis - Discharge Diagnosis (1) Osteomyelitis Status: Acute Priority: High (2) Diabetes mellitus Status: Chronic Priority: High (3) Acute renal insufficiency Status: Acute Priority: Medium (4) Diabetic foot ulcer Status: Acute Priority: High (5) Anemia Status: Chronic Priority: Medium Hospital Course - Lab Results Lab Results: Micro Results 04/19/17 10:00 Bone Tissue Culture - Final No growth. 04/19/17 10:00 Foot - Right Gram Stain - Final 04/19/17 10:00 Foot - Right Wound Culture - Final No growth. 04/16/17 14:10 Blood-Venous Blood Culture - Final NO GROWTH AFTER 5 DAYS 04/16/17 14:10 Blood-Venous Gram Stain - Final TEST NOT PERFORMED 04/16/17 13:45 Blood-Venous Blood Culture - Final NO GROWTH AFTER 5 DAYS 04/16/17 13:45 Blood-Venous Gram Stain - Final TEST NOT PERFORMED 04/17/17 10:00 Urine,Catheterized Urine Culture - Final Klebsiella Ozaenae 04/16/17 11:53 Stool Stool Culture - Final NO SALMONELLA, SHIGELLA OR CAMPYLOBACTER ISOLATED. 04/16/17 11:53 Stool Ova and Parasite Concentrate Exam - Final 04/10/17 19:00 Foot - Right Gram Stain - Final 04/10/17 19:00 Foot - Right Wound Culture - Final Beta Hemolytic Strep Group B 04/13/17 20:00 Stool C. difficile Antigen & Toxin A,B (M - Final 04/11/17 10:30 Urine,Clean Catch Urine Culture - Final No Growth (<1,000 CFU/ML) 04/11/17 05:50 Stool C. difficile Antigen & Toxin A,B (M - Final Most Recent Lab Values WBC 6.6 10^3/ul (4.5-11.0) 04/24/17 12:00 RBC 3.56 10^6/uL (3.5-6.1) 04/24/17 12:00 Hgb 10.4 g/dL (12.0-16.0) L 04/24/17 12:00 Hct 32.8 % (36.0-48.0) L 04/24/17 12:00 MCV 92.1 fl (80.0-105.0) 04/24/17 12:00 MCH 29.2 pg (25.0-35.0) 04/24/17 12:00 MCHC 31.7 g/dl (31.0-37.0) 04/24/17 12:00 RDW 14.0 % (11.5-14.5) 04/24/17 12:00 Plt Count 253 10^3/uL (120.0-450.0) 04/24/17 12:00 MPV 9.6 fl (7.0-11.0) 04/24/17 12:00 Gran % 63.0 % (50.0-68.0) 04/24/17 12:00 Lymph % (Auto) 22.1 % (22.0-35.0) 04/24/17 12:00 Cross % (Auto) 13.0 % (1.0-6.0) H 04/24/17 12:00 Eos % (Auto) 1.7 % (1.5-5.0) 04/24/17 12:00 Baso % (Auto) 0.2 % (0.0-3.0) 04/24/17 12:00 Gran # 4.18 (1.4-6.5) 04/24/17 12:00 Lymph # (Auto) 1.5 (1.2-3.4) 04/24/17 12:00 Cross # (Auto) 0.9 (0.1-0.6) H 04/24/17 12:00 Eos # (Auto) 0.1 (0.0-0.7) 04/24/17 12:00 Baso # (Auto) 0.01 K/mm3 (0.0-2.0) 04/24/17 12:00 Neutrophils % (Manual) 90 % (50.0-70.0) H 04/11/17 06:30 Band Neutrophils % 4 % (0-2) H 04/11/17 06:30 Lymphocytes % (Manual) 3 % (22.0-35.0) L 04/11/17 06:30 Monocytes % (Manual) 3 % (1.0-6.0) 04/11/17 06:30 Platelet Evaluation Normal (NORMAL) 04/11/17 06:30 Hypochromasia 1+ 04/11/17 06:30 Anisocytosis (manual) 1+ 04/11/17 06:30 Tear Drop Cells Slight 04/11/17 06:30 Ovalocytes Slight 04/11/17 06:30 ESR 150 mm/hr (0.0-20.0) H 04/10/17 16:05 PT 13.6 SECONDS (9.4-12.5) H 04/17/17 06:30 INR 1.18 (0.93-1.08) H 04/17/17 06:30 APTT 33.0 Seconds (25.1-36.5) 04/10/17 16:05 pCO2 18 mm/Hg (35-45) L* 04/12/17 08:15 pO2 154.0 mm/Hg (80-100) H 04/12/17 08:15 HCO3 12.5 mmol/L (21-28) L 04/12/17 08:15 ABG pH 7.45 (7.35-7.45) 04/12/17 08:15 ABG Total CO2 13.1 mmol.L (22-28) L 04/12/17 08:15 ABG O2 Saturation 98.0 % (95-98) 04/12/17 08:15 ABG Base Excess -8.9 mmol/L (-2.0-3.0) L 04/12/17 08:15 ABG Potassium 3.0 mmol/L (3.6-5.2) L 04/12/17 08:15 VBG pH 6.98 (7.32-7.43) L* 04/11/17 19:54 VBG pCO2 50.0 (40-60) 04/11/17 19:54 VBG HCO3 11.8 mmol/l (21-28) L 04/11/17 19:54 VBG Total CO2 13.3 mmol.L (22-28) L 04/11/17 19:54 VBG O2 Sat (Calc) 77.8 % (40-65) H 04/11/17 19:54 VBG Base Excess -19.8 mmol/L (0.0-2.0) L 04/11/17 19:54 Sodium 145.0 mmol/L (132-148) 04/12/17 08:15 Chloride 121.0 mmol/L (98-107) H 04/12/17 08:15 Glucose 108 mg/dl (65-105) H 04/12/17 08:15 Lactate 0.6 mmol/L (0.7-2.1) L 04/12/17 08:15 FiO2 21.0 % 04/12/17 08:15 Sodium 146 mmol/L (132-148) 04/24/17 10:34 Potassium 5.5 mmol/L (3.6-5.0) H 04/24/17 10:34 Chloride 109 mmol/L (98-107) H 04/24/17 10:34 Carbon Dioxide 23 mmol/L (21-33) 04/24/17 10:34 Anion Gap 19 (10-20) 04/24/17 10:34 BUN 23 mg/dL (7-21) H 04/24/17 10:34 Creatinine 1.4 mg/dl (0.7-1.2) H 04/24/17 10:34 Est GFR ( Amer) 47 04/24/17 10:34 Est GFR (Non-Af Amer) 38 04/24/17 10:34 POC Glucose (mg/dL) 162 mg/dL (65-110) H 04/24/17 21:42 Random Glucose 286 mg/dL (70-110) H 04/24/17 10:34 Hemoglobin A1c 7.4 % (4.2-6.5) H D 04/11/17 06:30 Calcium 10.3 mg/dL (8.4-10.5) 04/24/17 10:34 Phosphorus 3.0 mg/dL (2.5-4.5) 04/13/17 06:45 Magnesium 1.5 mg/dL (1.7-2.2) L 04/13/17 06:45 Iron 15 ug/dL (45-180) L 04/11/17 06:30 TIBC 189 ug/dL (265-497) L 04/11/17 06:30 % Saturation 8 % (20-55) L 04/11/17 06:30 Ferritin 2580.0 ng/mL 04/10/17 16:05 Total Bilirubin 0.5 mg/dL (0.2-1.3) 04/24/17 10:34 GGT 502 U/L (8-78) H 04/16/17 06:00 AST 60 U/L (14-36) H 04/24/17 10:34 ALT 109 U/L (7-56) H 04/24/17 10:34 Alkaline Phosphatase 244 U/L (38-126) H 04/24/17 10:34 Total Creatine Kinase 88 U/L (35-230) 04/15/17 10:45 C-React Prot High Sens > 15.00 mg/L (1.00-3.00) H 04/10/17 16:05 Total Protein 7.5 g/dL (5.8-8.3) 04/24/17 10:34 Total Protein (PEP) 7.2 g/dL (6.1-8.1) 04/11/17 06:30 Albumin 3.9 g/dL (3.0-4.8) 04/24/17 10:34 Albumin (PEP) 3.3 g/dL (3.8-4.8) L 04/11/17 06:30 Globulin 3.6 gm/dL 04/24/17 10:34 Albumin/Globulin Ratio 1.1 (1.1-1.8) 04/24/17 10:34 Eefoy-1-Hmpczxuat 0.7 g/dL (0.2-0.3) H 04/11/17 06:30 Crvpg-7-Zszapbcnf 1.4 g/dL (0.5-0.9) H 04/11/17 06:30 Trnn-1-Bncgzsmq 0.4 g/dL (0.4-0.6) 04/11/17 06:30 Cyjh-0-Srpkqkcj 0.5 g/dL (0.2-0.5) 04/11/17 06:30 Gamma Globulins 0.8 g/dL (0.8-1.7) 04/11/17 06:30 Abnorm Protein Band 1 TEST NOT PERFORMED 04/11/17 06:30 Abnorm Protein Band 2 TEST NOT PERFORMED 04/11/17 06:30 Abnorm Protein Band 3 TEST NOT PERFORMED 04/11/17 06:30 Vitamin B12 > 1000 pg/mL (239-931) H 04/10/17 16:05 25-OH Vitamin D Total 39.6 NG/ML (30.0-100.0) 04/12/17 06:30 Folate > 20.0 ng/mL 04/10/17 16:05 PTH Intact Whole Molec 106 pg/mL (14-64) H 04/11/17 06:30 Arterial Blood Potassium 3.0 mmol/L (3.6-5.2) L 04/12/17 08:15 Urine Color Yellow (YELLOW) 04/17/17 10:00 Urine Appearance Sl cloudy (CLEAR) 04/17/17 10:00 Urine pH 6.5 (4.7-8.0) 04/17/17 10:00 Ur Specific [place] 1.010 (1.005-1.035) 04/17/17 10:00 Urine Protein 30 mg/dL (<30 mg/dL) H 04/17/17 10:00 Urine Glucose (UA) 250 mg/dL (NEGATIVE) H 04/17/17 10:00 Urine Ketones Negative mg/dL (NEGATIVE) 04/17/17 10:00 Urine Blood Trace-lysed (NEGATIVE) H 04/17/17 10:00 Urine Nitrate Negative (NEGATIVE) 04/17/17 10:00 Urine Bilirubin Negative (NEGATIVE) 04/17/17 10:00 Urine Urobilinogen 0.2 E.U./dL (<1 E.U./dL) 04/17/17 10:00 Ur Leukocyte Esterase Trace Altaf/uL (NEGATIVE) H 04/17/17 10:00 Urine RBC 0 - 2 /hpf (0-2) 04/17/17 10:00 Urine WBC 2 - 5 /hpf (0-6) 04/17/17 10:00 Ur Epithelial Cells 1 - 3 /hpf (0-5) 04/17/17 10:00 Urine Bacteria Trace (NEG) 04/11/17 10:30 U Random Total Protein 41 mg/L 04/14/17 21:18 Ur Random Sodium 35 meq/L 04/14/17 21:18 Ur Random Potassium 5.6 meq/L 04/14/17 21:18 Urine Microalbumin 70.8 mg/L (0.0-16.6) H 04/14/17 21:18 Stool Fat, Qual See note 04/16/17 11:53 Stool Sodium 57.20 mEq/L 04/16/17 11:53 Stool Potassium 81 mEq/L 04/16/17 11:53 Stool Chloride 30 mEq/L 04/16/17 11:53 IgG 812.7 mg/dL (700.0-1600.0) 04/16/17 10:14 LUDY & SPEP Interp See note 04/11/17 06:30 Serum Immunofixation Not detected (Not Detected) 04/11/17 06:30 MARQUISE Screen Negative (Negative) 04/16/17 12:10 Anti-Mitochondrial Ab Negative (Negative) 04/16/17 12:10 Smooth Muscle Ab Titer TEST NOT PERFORMED 04/16/17 12:10 Anti-Smooth Muscle Ab Negative (Negative) 04/16/17 12:10 Liver/Kid Microsomes Ab <=20.0 U (<=20.0) 04/16/17 12:10 Tot Tulsita/Lambda Ratio 2.11 (1.29-2.55) 04/11/17 06:30 Tulsita Light Chain Anal 268 mg/dL (176-443) 04/11/17 06:30 Lambda Light Chain Anal 127 mg/dL (91-240) 04/11/17 06:30 Giardia Antigen Not detected (Not Detected) 04/16/17 11:53 Hepatitis A IgM Ab Negative (NEGATIVE) 04/11/17 11:19 Hep Bs Antigen Negative (NEGATIVE) 04/11/17 11:19 Hep B Core IgM Ab Negative (NEGATIVE) 04/11/17 11:19 Hepatitis C Antibody Negative (NEGATIVE) 04/11/17 11:19 Blood Type B POSITIVE 04/12/17 16:00 Antibody Screen Negative 04/12/17 16:00 Crossmatch See Detail 04/12/17 16:00 BBK History Checked Patient has bt 04/12/17 16:00 - Hospital Course Hospital Course: Patient is a 61 year old female with a history of NIDDM x 9 years, diabetic chronic kidney disease stage III, anemia, secondary hyperparathyroidism, hypertesnion, hearing loss, esophageal stenosis, basal cell carcinoma on nasal skin s/p removal found to have osteomyelitis of right foot which required partial resection of 2nd metatarsal. Nephrology, Infectious disease, podiatry and vascular surgery were consulted. From a nephrology standpoint patient's acute kidney injury during course of hospital stay was most likely pre-renal due to decreased oral intake, dehydration, and sepsis which had resolved. Medications were adjusted and appropriate renal supplements were administered including sodium bicarb, iron, MVI, and ananesp. Medications were properly dosed for improved GFR and therefore stable from a nephrology perspective. From an infectious disease standpoint, upon being discharged patient would require 4 more weeks of Zyvox as well as repeat CBC, SMA-18, sed rate, CRP weekly, to monitor potential bone marrow suppression closely. As per podiatry, patient is to continue with multipodus boots while in bed as well as daily dressing changes. Patient is allowed Partial weight bearing (PWB) to right heel - has own Darco wound shoes which may be used for ambulation. In order to prevent worsening or new development of sacral ulcers, patient was discharged with instructions to turn q2 hours to prevent worsening of pressure ulcers. Plan of discharge was discussed with patient and patient was in agreement with plan of discharge. Patient was then discharged to subacute rehabilitation at [facility]. Case reviewed and discussed with Dr. Lenore Monet PGY1 Discharge Exam - Head Exam Head Exam: ATRAUMATIC, NORMAL INSPECTION, NORMOCEPHALIC - Eye Exam Eye Exam: EOMI, Normal appearance - ENT Exam ENT Exam: Mucous Membranes Moist, Normal Exam - Neck Exam Neck exam: Full Rom - Respiratory Exam Respiratory Exam: Clear to PA & Lateral, NORMAL BREATHING PATTERN, UNREMARKABLE. absent: Rhonchi, Wheezes - Cardiovascular Exam Cardiovascular Exam: REGULAR RHYTHM, +S1, +S2 - GI/Abdominal Exam GI & Abdominal Exam: Normal Bowel Sounds, Unremarkable - Extremities Exam Extremities exam: normal inspection, pedal pulses present - Back Exam Back exam: NORMAL INSPECTION - Neurological Exam Neurological exam: Alert, CN II-XII Intact, Oriented x3 - Psychiatric Exam Psychiatric exam: Normal Affect, Normal Mood - Skin Skin Exam: Intact, Normal Color, Warm Discharge Plan - Discharge Medications Prescriptions: Linezolid [Zyvox] 600 mg PO Q12 #70 tab - Follow Up Plan Condition: GUARDED Disposition: REHAB FACILITY/REHAB UNIT Instructions: Diabetic Foot Care (DC), Diabetes Mellitus Type 1 in Adults (DC) , Influenza (DC), Hyperkalemia (DC), Acute Wound Care (DC), Anemia (DC) Additional Instructions: Discharge Instructions 1. Left ankle ulceration dressed with maxorb, Optifoam Continue Multipodus boots while in bed. Dressing change daily. 2. Pt is allowed Partial weight bearing (PWB) to right heel - has own Darco wound shoes which may be used for ambulation. R foot surgical site dressed with betadine, DSD 3. Wound care and dressing changes at sacral ulcer. Turn q2 hours to prevent worsening of pressure ulcers 4. 4 more weeks of Zyvox. Repeat CBC, SMA-18, sed rate, CRP weekly, to monitor potential bone marrow suppression closely. 5. Pt will need outpatient colonoscopy and further work up for anemia. Referrals: Arden Galvez MD [Staff Provider] - Adolfo Gamboa DO [Medical Doctor] -
== END 2017-04-24 23:00 | DRG 581 ==
LOC: ED 15:30 → ERH 17:24 → 3RSO 19:05 → 5RSO 04-20 18:37
PROVIDERS: ADMIT Hospitalist; ATTEND Hospitalist
PROC: 0QBN0ZZ Excision of Right Metatarsal, Open Approach (ICD-10-PCS; 2017-04-11)
PROC: 3E03328 Introduction of Oxazolidinones into Peripheral Vein, Percutaneous Approach (ICD-10-PCS; 2017-04-12)
PROC: 30233N1 Transfusion of Nonautologous Red Blood Cells into Peripheral Vein, Percutaneous Approach (ICD-10-PCS; 2017-04-12)
PROC: 05HY33Z Insertion of Infusion Device into Upper Vein, Percutaneous Approach (ICD-10-PCS; 2017-04-12)
PROC: 05HY33Z Insertion of Infusion Device into Upper Vein, Percutaneous Approach (ICD-10-PCS; 2017-04-14)
PROC: 05HY33Z Insertion of Infusion Device into Upper Vein, Percutaneous Approach (ICD-10-PCS; 2017-04-15)
PROC: 0QBN0ZZ Excision of Right Metatarsal, Open Approach (ICD-10-PCS; principal; 2017-04-19 07:30)
DX: A41.9 Sepsis, unspecified organism (principal); M86.671 Other chronic osteomyelitis, right ankle and foot; L03.115 Cellulitis of right lower limb; N17.9 Acute kidney failure, unspecified; E87.2 Acidosis; L97.519 Non-pressure chronic ulcer of other part of right foot with unspecified severity; E11.621 Type 2 diabetes mellitus with foot ulcer; R64 Cachexia; E11.21 Type 2 diabetes mellitus with diabetic nephropathy; E11.69 Type 2 diabetes mellitus with other specified complication; K22.2 Esophageal obstruction; N18.3 Chronic kidney disease, stage 3 (moderate); E83.42 Hypomagnesemia; E11.319 Type 2 diabetes mellitus with unspecified diabetic retinopathy without macular edema; E11.51 Type 2 diabetes mellitus with diabetic peripheral angiopathy without gangrene; E87.5 Hyperkalemia; E11.22 Type 2 diabetes mellitus with diabetic chronic kidney disease; E87.0 Hyperosmolality and hypernatremia; E11.622 Type 2 diabetes mellitus with other skin ulcer; L97.329 Non-pressure chronic ulcer of left ankle with unspecified severity; E87.6 Hypokalemia; K21.9 Gastro-esophageal reflux disease without esophagitis; I25.10 Atherosclerotic heart disease of native coronary artery without angina pectoris; N25.81 Secondary hyperparathyroidism of renal origin; D64.9 Anemia, unspecified; E55.9 Vitamin D deficiency, unspecified; R65.20 Severe sepsis without septic shock; Z68.1 Body mass index [BMI] 19.9 or less, adult; I12.9 Hypertensive chronic kidney disease with stage 1 through stage 4 chronic kidney disease, or unspecified chronic kidney disease; B95.1 Streptococcus, group B, as the cause of diseases classified elsewhere; R21 Rash and other nonspecific skin eruption; K76.0 Fatty (change of) liver, not elsewhere classified; E86.0 Dehydration; N28.1 Cyst of kidney, acquired; H91.90 Unspecified hearing loss, unspecified ear; Z89.412 Acquired absence of left great toe; Z89.421 Acquired absence of other right toe(s); Z88.1 Allergy status to other antibiotic agents; Z88.0 Allergy status to penicillin

== ENCOUNTER 2017-06-26 14:48 | Inpatient (IN) | payer MEDICAID ==
[2017-06-26 14:48] VITALS: PULSE 122
[2017-06-26 15:24] VITALS: BMI 14.6
[2017-06-26 16:06] LABS: BASO # 0.03 K/mm3 (0.0-2.0); BASO % 0.3 % (0.0-3.0); EOS # 0.2 (0.0-0.7); EOS % 2.2 % (1.5-5.0); GRAN # 6.01 (1.4-6.5); GRAN % 69.3 % (50.0-68.0); LYMPH # 1.2 (1.2-3.4); LYMPH % 13.6 % (22.0-35.0); MEAN CORPUSCULAR HEMOGLOBIN 29.4 pg (25.0-35.0); MEAN CORPUSCULAR HGB CONC 31.2 g/dl (31.0-37.0); MONO # 1.3 (0.1-0.6); MONO % 14.6 % (1.0-6.0); RBC 2.35 10^6/uL (3.5-6.1); RED CELL DISTRIBUTION WIDTH 15.2 % (11.5-14.5); WHITE BLOOD COUNT 8.7 10^3/ul (4.5-11.0)
[2017-06-26 16:07] LABS: VENOUS BLOOD GAS BASE EXCESS -5.9 mmol/L (0.0-2.0); VENOUS BLOOD GAS PO2 48 mm/Hg (30-55)
[2017-06-26 16:14] LABS: HEMOGLOBIN 6.9 g/dL (12.0-16.0)
[2017-06-26 16:24] LABS: ALBUMIN 3.9 g/dL (3.0-4.8); CALCIUM 9.8 mg/dL (8.4-10.5)
[2017-06-26 16:26] LABS: INR 1.28 (0.93-1.08); PARTIAL THROMBOPLASTIN TIME 33.9 Seconds (25.1-36.5); PROTHROMBIN TIME 14.7 SECONDS (9.4-12.5)
[2017-06-26 16:42] LABS: URINE BILIRUBIN NEGATIVE (NEGATIVE); URINE BLOOD TRACE-INTACT (NEGATIVE); URINE GLUCOSE (UA) >=1000 mg/dL (NEGATIVE); URINE LEUKOCYTE ESTERASE MODERATE Leu/uL (NEGATIVE); URINE PROTEIN 100 mg/dL (<30 mg/dL); URINE UROBILINOGEN 0.2 E.U./dL (<1 E.U./dL)
[2017-06-26 16:44] LABS: URINE APPEARANCE TURBID (CLEAR); URINE COLOR YELLOW (YELLOW)
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
[2017-06-26 16:52] LABS: URINE BACTERIA FEW (NEG); URINE RBC 0 - 2 /hpf (0-2); URINE WBC TNTC /hpf (0-6)
[2017-06-26] MEDS ORDERED: Vancomycin 1gm in NS 250ml 1 GM/250 ML BAG IVPB STA ×2 (16:55→17:12)
--- NOTE | 2017-06-26 17:57 | RAD ---
PROCEDURE: Right Foot Radiographs. HISTORY: infected ulcer, lateral foot COMPARISON: 04/19/2007 FINDINGS: BONES: No significant interval change compared to the prior examination(s). JOINTS: No significant interval change compared to the prior examination(s). SOFT TISSUES: Normal. OTHER FINDINGS: None. IMPRESSION: No acute findings related to/accounting for the clinical presentation. No significant interval change compared to the prior examination(s).
--- NOTE | 2017-06-26 18:02 | RAD ---
HISTORY: Anemia, possible infection of right foot COMPARISON: 04/17/2017 FINDINGS: LUNGS: No active pulmonary disease. PLEURA: No significant pleural effusion identified, no pneumothorax apparent. CARDIOVASCULAR: No radiographic findings to suggest acute or significant cardiovascular disease. OSSEOUS STRUCTURES: No significant abnormalities. VISUALIZED UPPER ABDOMEN: Normal. OTHER FINDINGS: None. IMPRESSION: No active disease. No significant interval change compared to the prior examination(s).
--- NOTE | 2017-06-26 18:03 | US ---
PROCEDURE: Right lower extremity venous US HISTORY: Leg pain and swelling. Evaluate for DVT. PHYSICIAN(S): Ren Ortiz M.D. TECHNIQUE: Duplex sonography and color-flow Doppler with graded compression were used to evaluate the deep venous system of the right lower extremity. FINDINGS: The visualized deep venous system of the right lower extremity is sonographically normal and compressible. Normal waveforms and augmentation are seen. There is no sonographic evidence for deep venous thrombosis in the visualized segments of the right lower extremity. IMPRESSION: 1. No sonographic evidence for deep venous thrombosis in the visualized segments of the right lower extremity.
[2017-06-26] MEDS ORDERED: Sodium Chloride 0.9% 500 ML IV STA ×2 (18:06→22:17)
[2017-06-26] MEDS ORDERED: Aztreonam 1 Gm in NS 100mL 100 ML IVPB STA (19:37)
--- NOTE | 2017-06-26 21:21 | CARD ---
APPROVED REPORT EKG Measurement Heart [id number] <Conclusion> Sinus rhythm with short WY Otherwise normal ECG
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
[2017-06-27 00:03] LABS: IRON 23 ug/dL (45-180)
[2017-06-27 00:12] LABS: % IRON SATURATION 12 % (20-55); TOTAL IRON BINDING CAPACITY 189 ug/dL (265-497)
[2017-06-27] MEDS: Sodium Chloride 0.9% 1,000 ML IV SCH ×3 (00:30→18:10)
[2017-06-27] MEDS ORDERED: Dextrose 50% SYRINGE Inj (50 ml) IVP PRN ×2 (01:04→01:05)
[2017-06-27] MEDS ORDERED: Oxycodone/Acetaminophen 5/325 mg Tab PO PRN (01:17)
[2017-06-27] MEDS: Pantoprazole 40 mg EC Tab PO SCH (05:14)
[2017-06-27 07:32] LABS: EOS # 0.3 (0.0-0.7); EOS % 3.5 % (1.5-5.0); GRAN # 8.38 (1.4-6.5); GRAN % 93.4 % (50.0-68.0); LYMPH # 0.1 (1.2-3.4); LYMPH % 1.6 % (22.0-35.0); MEAN CELL VOLUME 89.9 fl (80.0-105.0); MEAN CORPUSCULAR HEMOGLOBIN 29.4 pg (25.0-35.0); MEAN CORPUSCULAR HGB CONC 32.7 g/dl (31.0-37.0); MEAN PLATELET VOLUME 9.3 fl (7.0-11.0); MONO # 0.1 (0.1-0.6); MONO % 1.5 % (1.0-6.0); PLATELET COUNT 347 10^3/uL (120.0-450.0); RBC 3.37 10^6/uL (3.5-6.1); RED CELL DISTRIBUTION WIDTH 15.2 % (11.5-14.5)
[2017-06-27 07:34] LABS: HEMOGLOBIN 9.9 g/dL (12.0-16.0)
[2017-06-27 07:51] LABS: CREATININE,RANDOM URINE 47 mg/dL
[2017-06-27 07:52] LABS: ALBUMIN 3.1 g/dL (3.0-4.8); ALT/SGPT 83 U/L (7-56); AST/SGOT 86 U/L (14-36); BLOOD UREA NITROGEN 29 mg/dL (7-21); CALCIUM 8.5 mg/dL (8.4-10.5); GFR AFRICAN-AMERICAN 26; GFR NON-AFRICAN AMERICAN 22
[2017-06-27 08:15] LABS: LYMPHOCYTE 2 % (22.0-35.0); NEUTROPHIL 84 % (50.0-70.0)
[2017-06-27 08:16] LABS: EOSINOPHIL 2 % (0.0-3.0); PLATELET ESTIMATE NORMAL (NORMAL)
[2017-06-27 08:18] LABS: BAND 12 % (0-2)
[2017-06-27] MEDS: Insulin Reg-LOW-Coverage SC SCH ×4 (08:45→22:30)
[2017-06-27] MEDS: Multivitamin With Minerals Tab PO SCH (08:50)
--- NOTE | 2017-06-27 09:39 | US ---
HISTORY: Assess common bile duct COMPARISON: 04/11/2017 abdominal ultrasound. 04/11/2017 CT abdomen and pelvis. TECHNIQUE: Sonographic evaluation of the abdomen. FINDINGS: LIVER: Measures cm. Normal echogenicity of the liver parenchyma. No mass. No intrahepatic bile duct dilatation. GALLBLADDER: Status post cholecystectomy. No abnormality is seen in the gallbladder fossa. COMMON BILE DUCT: Measures 11.3 proximally, tapering distally to 7.8 mm no intrahepatic bile duct dilatation. Dilated common bile duct a finding identified on prior study 04/11/2017 PANCREAS: Unremarkable as visualized. No mass. No ductal dilatation. RIGHT KIDNEY: Measures 4.2 x 8.5cm. No focal abnormalities. Incidental finding(s): Simple renal cysts LEFT KIDNEY: Measures 3.5 x 8.8cm. No focal abnormalities. SPLEEN: Normal in size and contour. No mass. AORTA: No aneurysmal dilatation. IVC: Unremarkable. OTHER FINDINGS: None. IMPRESSION: Persistent dilatation of common bile duct without intrahepatic bile duct dilatation. No evidence choledocholithiasis or extrinsic abnormality. Distal common bile duct tapers 27.8 mm. Additional benign and/or incidental findings described above.
[2017-06-27] MEDS ORDERED: Darbepoetin Alfa 60 mcg/ml Inj SC ONE (09:42)
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
[2017-06-27] MEDS ORDERED: Peg-Electrolyte Oral Soln 4L (Golytely) PO ONE (13:00)
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
[2017-06-27] MEDS ORDERED: Sodium Chloride 0.9% 1,000 ML IV STA (19:08)
[2017-06-27 19:24] LABS: FOLATE > 20.0 ng/mL
[2017-06-28] MEDS: Sodium Chloride 0.9% 1,000 ML IV SCH (05:43)
[2017-06-28] MEDS: Pantoprazole 40 mg EC Tab PO SCH (05:43)
[2017-06-28 07:15] LABS: EOS # 0.3 (0.0-0.7); GRAN # 4.33 (1.4-6.5); GRAN % 80.6 % (50.0-68.0); HEMOGLOBIN 9.5 g/dL (12.0-16.0); LYMPH # 0.4 (1.2-3.4); LYMPH % 6.5 % (22.0-35.0); MEAN CELL VOLUME 90.1 fl (80.0-105.0); MEAN CORPUSCULAR HEMOGLOBIN 29.3 pg (25.0-35.0); MEAN CORPUSCULAR HGB CONC 32.5 g/dl (31.0-37.0); MEAN PLATELET VOLUME 9.2 fl (7.0-11.0); MONO # 0.4 (0.1-0.6); MONO % 6.9 % (1.0-6.0); RBC 3.24 10^6/uL (3.5-6.1); RED CELL DISTRIBUTION WIDTH 15.7 % (11.5-14.5); WHITE BLOOD COUNT 5.4 10^3/ul (4.5-11.0)
--- NOTE | 2017-06-28 07:56 | CP.PCM.PN ---
Subjective - Date & Time of Evaluation Date of Evaluation: 06/28/17 Time of Evaluation: 06:45 - Subjective Subjective: PGY4 GI Follow-up Pt seen and examined bedside No complaints Was not able to finish the prep yesterday, only drank 3 cups denies any abd pain ROS: 12 point ROS conducted neg other than above Objective - Vital Signs/Intake and Output Vital Signs (last 24 hours): Temp Pulse Resp BP Pulse Ox 99.5 F 124 H 18 113/54 L 100 06/28/17 06:00 06/28/17 06:00 06/28/17 06:00 06/28/17 06:00 06/28/17 06:00 Intake and Output: 06/28/17 06/28/17 06:59 18:59 Intake Total 2300 Balance 2300 - Medications Medications: Current Medications Acetaminophen (Tylenol 325mg Tab) 650 mg PO Q6H PRN PRN Reason: Fever >100.4 F Last Admin: 06/27/17 19:06 Dose: 650 mg Collagenase (Santyl) 0 gm TOP DAILY [facility] Cyanocobalamin (Vitamin B12 1000 Mcg Tab) 500 mcg PO DAILY [facility] Last Admin: 06/27/17 09:48 Dose: 500 mcg Dextrose (Dextrose 50% Inj) 25 ml IVP ONCE PRN PRN Reason: Hypoglycemia Ferrous Sulfate (Feosol) 324 mg PO TID [facility] Last Admin: 06/27/17 18:05 Dose: 324 mg Folic Acid (Folic Acid) 1 mg PO DAILY [facility] Last Admin: 06/27/17 09:48 Dose: 1 mg Sodium Chloride (Sodium Chloride 0.9%) 1,000 mls @ 100 mls/hr IV .Q10H [facility] Last Admin: 06/28/17 05:43 Dose: 100 mls/hr Meropenem 250 mg/ Sodium (Chloride) 100 mls @ 100 mls/hr IVPB Q12 [facility] PRN Reason: Protocol Stop: 07/06/17 10:01 Last Admin: 06/27/17 21:57 Dose: 100 mls/hr Insulin Human Regular (Humulin R Low) 0 units SC ACHS [facility] PRN Reason: Protocol Last Admin: 06/27/17 22:30 Dose: Not Given Linezolid (Zyvox) 600 mg PO BID [facility] PRN Reason: Protocol Stop: 07/06/17 10:01 Last Admin: 06/27/17 18:05 Dose: 600 mg Multivitamins/Minerals (Therapeutic-M Tab) 1 tab PO 0800 [facility] Last Admin: 06/27/17 08:50 Dose: 1 tab Mupirocin (Bactroban Ointment) 0.5 gm TOP BID [facility] Last Admin: 06/27/17 18:08 Dose: 1 applic Pantoprazole Sodium (Protonix Ec Tab) 40 mg PO 0600 [facility] Last Admin: 06/28/17 05:43 Dose: 40 mg Sodium Bicarbonate (Sodium Bicarbonate Tab) 1,300 mg PO QID [facility] Last Admin: 06/27/17 21:58 Dose: 1,300 mg - Labs Labs: 06/28/17 06:30 06/27/17 07:00 PT 14.7 SECONDS (9.4-12.5) H 06/26/17 16:01 INR 1.28 (0.93-1.08) H 06/26/17 16:01 APTT 33.9 Seconds (25.1-36.5) 06/26/17 16:01
[2017-06-28] MEDS: Insulin Reg-LOW-Coverage SC SCH ×4 (08:05→22:00)
--- NOTE | 2017-06-28 09:05 | CON ---
DATE: 06/27/2017 LOCATION: The patient was seen earlier this morning in room 273, bed 3. CHIEF COMPLAINT: Fever of 102 and right foot pain times several days. HISTORY OF PRESENT ILLNESS: This is a 61-year-old female known to me from previous admissions with chronic osteomyelitis, diabetes mellitus, severe peripheral vascular disease, history of pseudomembranous colitis, coronary artery disease, GERD, hypertension, cataract, who is chronically ill, cachectic, and end-stage wasting syndrome with a BMI of only 14 who was admitted back to the Emergency Room with fever of 102 with infection and Infectious Disease continues consultation. The patient was seen earlier this morning. The patient is having fevers and chills and shortness of breath, weakness. No chest pain, no abdominal pain or diarrhea. She is having pain in the right foot. No bright red blood per rectum, no melena. REVIEW OF SYSTEMS: Reveals a 12-point review of systems performed including presence of fevers and chills. No headaches or blurred vision. No new neck pain, no new chest pain, mild shortness of breath. No abdominal pain, diarrhea or constipation. No bright red blood per rectum, no melena. PAST MEDICAL HISTORY: Significant for diabetes mellitus, coronary artery disease, peripheral vascular disease, pseudomembranous colitis, GERD, hypertension, cataract. PAST SURGICAL HISTORY: Significant for foot surgery, cholecystectomy, . ALLERGIES: THE PATIENT IS ALLERGIC TO CEFTRIAXONE, CLINDAMYCIN, PENICILLIN, SULFAMETHOXAZOLE, TRIMETHOPRIM. MEDICATIONS AT HOME: Include the patient to be on Toprol, Megace, and insulin. PHYSICAL EXAMINATION GENERAL: The patient is in bed, appearing chronically ill, cachectic and end-stage with temporal wasting. VITAL SIGNS: Temperature of 102, heart rate of 110, blood pressure is 85/60, the patient's respiratory rate of 20. The patient's BMI is only 14. HEENT: Unremarkable with a temporal wasting. NECK: Supple. LUNGS: Have decreased breath sounds. HEART: Normal S1 and S2. ABDOMEN: Soft, nontender. No organomegaly, no rebound, no marked guarding, no masses. EXTREMITIES: Examination of the right foot reveals there is erythema and there is discharge from the right foot and painful to touch. LABORATORY DATA: Reveals the patient's white count of 8.7. The patient does have 12% bandemia. Sedimentation rate of 15 and a hemoglobin of 6.9 with a platelets of 447 and 69% granulocytosis. Coagulation is noted. Chemistries revealed the patient's creatinine is 2.3 and creatinine prior to that was 1.4. LFTs are elevated. Procalcitonin is elevated at 12.3. Urinalysis is noted. Too numerous to count wbc's and with a few bacteria. There is a gram-negative edna in the urine culture and blood cultures are reported to be negative gram-positive cocci. ASSESSMENT AND PLAN: This is a 61-year-old female with chronic osteomyelitis, diabetes mellitus, peripheral vascular disease, coronary artery disease, pseudomembranous colitis, gastroesophageal reflux disease, hypertension, cataract with severe sepsis with Gram-positive cocci, right foot cellulitis and with Gram-negative edna urinary tract infection with acute kidney injury. We will treat the patient with MULTIPLE ALLERGIES INCLUDING CEFTRIAXONE, CLINDAMYCIN, PENICILLIN, SULFAMETHOXAZOLE, TRIMETHOPRIM WITH ZYVOX AND MEROPENEM and we will make further recommendations upon availability of initial results. Podiatric and vascular consultation recommended to rule out underlying osteomyelitis. The patient is scheduled for MRI of the foot. We will follow up closely with you. Carroll Castellano MD
[2017-06-28] MEDS: Multivitamin With Minerals Tab PO SCH (09:16)
[2017-06-28] MEDS: Collagenase 250 Units/gm Ointment(30 gm) TOP SCH (09:17)
[2017-06-28 09:28] LABS: ALBUMIN 2.9 g/dL (3.0-4.8); CALCIUM 8.8 mg/dL (8.4-10.5)
[2017-06-28] MEDS ORDERED: Sodium Chloride 0.45% 1,000 ML IV SCH (10:45)
--- NOTE | 2017-06-28 10:46 | CP.PCM.PN ---
<Giovanna Herreradorethaezekiel - Last Filed: 06/28/17 10:42> Subjective - Date & Time of Evaluation Date of Evaluation: 06/28/17 Time of Evaluation: 10:42 - Subjective Subjective: Podiatry Consult note: Dr. Mattson/Dr. Raymond 61 year old female seen and evaluated regarding bilateral feet ulceration. Patient is AAOx3 and is in NAD. Reports that she does not feel too well and states she may have had fever. Reports of pain on the right foot. Denies of any N/V/SOB/CP. Denies of any other pedal complains now. Objective - Vital Signs/Intake and Output Vital Signs (last 24 hours): Temp Pulse Resp BP Pulse Ox 99.5 F 124 H 18 113/54 L 100 06/28/17 06:00 06/28/17 06:00 06/28/17 06:00 06/28/17 06:00 06/28/17 06:00 Intake and Output: 06/28/17 06/28/17 06:59 18:59 Intake Total 2300 Balance 2300 - Medications Medications: Current Medications Acetaminophen (Tylenol 325mg Tab) 650 mg PO Q6H PRN PRN Reason: Fever >100.4 F Last Admin: 06/27/17 19:06 Dose: 650 mg Collagenase (Santyl) 0 gm TOP DAILY [facility] Last Admin: 06/28/17 09:17 Dose: Not Given Cyanocobalamin (Vitamin B12 1000 Mcg Tab) 500 mcg PO DAILY [facility] Last Admin: 06/28/17 09:15 Dose: 500 mcg Dextrose (Dextrose 50% Inj) 25 ml IVP ONCE PRN PRN Reason: Hypoglycemia Ferrous Sulfate (Feosol) 324 mg PO TID [facility] Last Admin: 06/28/17 09:16 Dose: 324 mg Folic Acid (Folic Acid) 1 mg PO DAILY [facility] Last Admin: 06/28/17 09:16 Dose: 1 mg Meropenem 250 mg/ Sodium (Chloride) 100 mls @ 100 mls/hr IVPB Q12 [facility] PRN Reason: Protocol Stop: 07/06/17 10:01 Last Admin: 06/28/17 09:16 Dose: 100 mls/hr Sodium Chloride (Sodium Chloride 0.45%) 1,000 mls @ 100 mls/hr IV .Q10H [facility] Insulin Human Regular (Humulin R Low) 0 units SC ACHS [facility] PRN Reason: Protocol Last Admin: 06/28/17 08:05 Dose: Not Given Linezolid (Zyvox) 600 mg PO BID [facility] PRN Reason: Protocol Stop: 07/06/17 10:01 Last Admin: 06/28/17 09:15 Dose: 600 mg Multivitamins/Minerals (Therapeutic-M Tab) 1 tab PO 0800 [facility] Last Admin: 06/28/17 09:16 Dose: 1 tab Mupirocin (Bactroban Ointment) 0.5 gm TOP BID [facility] Last Admin: 06/28/17 09:16 Dose: 1 applic Pantoprazole Sodium (Protonix Ec Tab) 40 mg PO 0600 [facility] Last Admin: 06/28/17 05:43 Dose: 40 mg Sodium Bicarbonate (Sodium Bicarbonate Tab) 1,300 mg PO QID [facility] Last Admin: 06/28/17 09:15 Dose: 1,300 mg - Labs Labs: 06/28/17 06:30 06/28/17 09:04 PT 14.7 SECONDS (9.4-12.5) H 06/26/17 16:01 INR 1.28 (0.93-1.08) H 06/26/17 16:01 APTT 33.9 Seconds (25.1-36.5) 06/26/17 16:01 - Constitutional Appears: Well, Non-toxic, No Acute Distress - Extremities Exam Additional comments: Lower extremity focused examination: Vasc: DP/PT pulses palpable 2/4 B/L. Temperature gradient warm to warm from proximal to distal. Cap refill time: < 3 sec to all digits, mild non-pitting edema noted on bilateral LE (R>L) Derm: wound measuring approx 2.5 cm x 2.5 cm x 0.2 cm noted on the lateral aspect of the right foot, wound base is mainly fibrotic with hyperkeratotic tissue in the wound bed, no granular tissue noted, approx. 2 cc of purulence drainage noted from the wound up on applying pressure, no malodor, periwound erythema present, no tunneling, no undermining; Wound measuring approx 1.5 cm x 1.0 cm x 0.2 cm noted on the anterior lateral aspect of the left ankle with another small wound distal medial to the ankle wound, wound base is mainly fibrotic with hyperkeratotic tissue in the wound bed, no granular tissue noted, no active drainage, no malodor, periwound erythema present, no tunneling, no undermining, no purulence Neuro: Protective sensation is grossly intact B/L Ortho: Mild tenderness to palpation of right foot wound. Left ankle ulceration mildly tender - Neurological Exam Neurological Exam: Alert, Awake, Oriented x3 - Psychiatric Exam Psychiatric exam: Normal Affect, Normal Mood Assessment and Plan - Assessment and Plan (Free Text) Assessment: 61 year old female patient with bilateral foot wounds with cellulitis Plan: Patient seen and evaluated at bedside with attending Dr. Mattson Labs, vitals and charts reviewed- afebrile, WBC 5.4 Right foot wound cultures: Group B strep Bilateral ulcerations cleansed with saline and dressing applied using santyl, optifoam Arterial duplex scan 03/29 - mildly abnormal [facility] V[facility] Consult - Dr. Ortiz Bilateral foot and ankle MRI ordered Multipodus boots to be worn at all times while in bed Continue IV abx - meropenem and linezolid Patient is allowed PWB to right heel in a surgical shoe Podiatry will follow patient while in-house <Leatha Mattson - Last Filed: 07/01/17 13:41> Objective - Vital Signs/Intake and Output Vital Signs (last 24 hours): Temp Pulse Resp BP Pulse Ox 98.8 F 77 18 127/75 98 07/01/17 08:25 07/01/17 08:37 07/01/17 08:25 07/01/17 08:37 07/01/17 08:25 Intake and Output: 07/01/17 07/01/17 06:59 18:59 Intake Total 120 Output Total 600 Balance -480 - Medications Medications: Current Medications Acetaminophen (Tylenol 325mg Tab) 650 mg PO Q6H PRN PRN Reason: Fever >100.4 F Last Admin: 06/27/17 19:06 Dose: 650 mg Collagenase (Santyl) 0 gm TOP DAILY [facility] Last Admin: 07/01/17 10:08 Dose: 1 applic Cyanocobalamin (Vitamin B12 1000 Mcg Tab) 500 mcg PO DAILY [facility] Last Admin: 07/01/17 10:06 Dose: 500 mcg Dextrose (Dextrose 50% Inj) 25 ml IVP ONCE PRN PRN Reason: Hypoglycemia Ferrous Sulfate (Feosol) 324 mg PO TID [facility] Last Admin: 07/01/17 10:07 Dose: 324 mg Folic Acid (Folic Acid) 1 mg PO DAILY [facility] Last Admin: 07/01/17 10:07 Dose: 1 mg Meropenem 250 mg/ Sodium (Chloride) 100 mls @ 100 mls/hr IVPB Q12 [facility] PRN Reason: Protocol Stop: 07/06/17 10:01 Last Admin: 07/01/17 10:07 Dose: 100 mls/hr Sodium Chloride (Sodium Chloride 0.45%) 1,000 mls @ 100 mls/hr IV .Q10H [facility] Last Admin: 06/30/17 08:47 Dose: 100 mls/hr Insulin Human Regular (Humulin R Low) 0 units SC ACHS [facility] PRN Reason: Protocol Last Admin: 07/01/17 12:32 Dose: 1 units Linezolid (Zyvox) 600 mg PO BID [facility] PRN Reason: Protocol Stop: 07/06/17 10:01 Last Admin: 07/01/17 10:06 Dose: 600 mg Metoprolol Succinate (Toprol Xl) 25 mg PO BRK [facility] Last Admin: 07/01/17 08:37 Dose: 25 mg Multivitamins/Minerals (Therapeutic-M Tab) 1 tab PO 0800 [facility] Last Admin: 07/01/17 08:36 Dose: 1 tab Mupirocin (Bactroban Ointment) 0.5 gm TOP BID [facility] Last Admin: 07/01/17 10:08 Dose: 1 applic Pantoprazole Sodium (Protonix Ec Tab) 40 mg PO 0600 [facility] Last Admin: 07/01/17 06:12 Dose: 40 mg Sodium Bicarbonate (Sodium Bicarbonate Tab) 1,300 mg PO QID [facility] Last Admin: 07/01/17 10:07 Dose: 1,300 mg - Labs Labs: 07/01/17 06:30 07/01/17 06:30 PT 14.7 SECONDS (9.4-12.5) H 06/26/17 16:01 INR 1.28 (0.93-1.08) H 06/26/17 16:01 APTT 33.9 Seconds (25.1-36.5) 06/26/17 16:01 Attending/Attestation - Attestation I have personally seen and examined this patient.: Yes I have fully participated in the care of the patient.: Yes I have reviewed all pertinent clinical information, including history, physical exam and plan: Yes
--- NOTE | 2017-06-28 11:08 | CP.PCM.PN ---
Subjective - Date & Time of Evaluation Date of Evaluation: 06/28/17 Time of Evaluation: 11:05 - Subjective Subjective: Nephrology Consultation Note: Assessment: Stable Acute Kidney Injury (N17.9) likely hemodynamic due to low BP, sepsis UTI, feet wound infection severe anemia, acidosis (possible RTA), hypernatremia Diabetic chronic Kidney Disease (E11.22) Hypertensive Chronic Kidney Disease (I12.9) Chronic Kidney Disease (N18.3) Stage 3 Anemia (D64.9), Secondary Hyperparathyroidism (E21.1), Vit D def, HTN (I12.9) hearing loss, esophageal stenosis, basal cell CA on nasal skin s/p removal Plan No acute need for renal replacement therapy at this time. No ACEI/ARB due to FREDY and hyperkalemia in past. maintain hemodynamics stable. consider to resume Toprol XL 25 mg/day to avoid BB withdrawal Monitor Input/Output, daily weights and renal function with basic metabolic panel resume Sodium bicarb 1300 mg qid, also on iron and MVI supplements. dose of ananesp 06/27/17, s/p PRBC transfusion continue with IVF as 0.45% saline since serum Na higher check urine Na/K/Cl to calculate UAG Dose meds/antibiotics for improved GFR. Avoid fleets enema/magnesium based laxatives. Avoid nephrotoxins/NSAIDs/ iodinated contrast (unless needed emergently) Glycemic control Further work up/management as per primary team Thanks for allowing me to participate in care of your patient. Will follow patient with you. Please call if any Qs Dr Javier Reyes Office: [phone] HPI: Pt is a 61 y/o F with hx of diabetes Mellitus ( x 8-9 years) with retinopathy, hypertension, hearing loss, esophageal stenosis, chronic anemia, basal cell CA on nasal skin s/p removal recurrent AKIs, now has CKD stage 3. now readmitted for Sepsis with anemia and FREDY renal consult for FREDY management. Denies chest pain, palpitation, shortness of breath, leg swelling. says foot pain better Has chronic loose stool 2-3 times/day but better now a days. ROS: pt denies any new complaints. no CP/SOB. no pain abdomen General Appearance: Comfortable, in no acute respiratory distress, co- operative. thin built. Vitals reviewed and noted Head; Atraumatic, normocephalic ENT: no ulcers no thrush. Tongue is midline. Oropharynx: no rash or ulcers. Hard of hearing. Uses hearing aid. EYES: Pupils are equal, round and reactive to light accommodation. Eye muscles and extraocular movement intact. Sclera is anicteric. Neck; supple no lymphadenopathy, no thyromegaly or bruit Lungs: Normal respiratory rate/effort. Breath sounds bilateral equal and clear Heart: Increased rate. s1s2 normal. No rub or gallop. Extremities: no edema with wound dressed at feet. No varicose veins. Hand osteoarthritic deformities +. Neurological: Patient is alert, awake and oriented to person, place and time. No focal deficit. Strength bilateral appropriate and equal Skin: Warm and dry. Normal turgor. Palpitation: Normal elasticity for age. upper torso/face appears flushed/erythematous Abdomen: Abdomen is soft. Bowel sounds +. There is no abdominal tenderness, no guarding/rigidity or organomegaly Psych: normal insight and normal affect/mood MSK: no joint tenderness or swelling. : kidney or bladder not palpable Labs/imaging reviewed. Past medical history, past surgical history, family history, social history, allergy reviewed and noted as below Family hx: no hx of CKD. Rest non-contributory Work up: 09/13/2016: GN serologies all negative, scleroderma work up neg, SPEP/LUDY neg Renal sono: b/l cortical atrophy. Small 1 cm Rt kidney simple cyst. Objective - Vital Signs/Intake and Output Vital Signs (last 24 hours): Temp Pulse Resp BP Pulse Ox 99.5 F 124 H 18 113/54 L 100 06/28/17 06:00 06/28/17 06:00 06/28/17 06:00 06/28/17 06:00 06/28/17 06:00 Intake and Output: 06/28/17 06/28/17 06:59 18:59 Intake Total 2300 Balance 2300 - Medications Medications: Current Medications Acetaminophen (Tylenol 325mg Tab) 650 mg PO Q6H PRN PRN Reason: Fever >100.4 F Last Admin: 06/27/17 19:06 Dose: 650 mg Collagenase (Santyl) 0 gm TOP DAILY [facility] Last Admin: 06/28/17 09:17 Dose: Not Given Cyanocobalamin (Vitamin B12 1000 Mcg Tab) 500 mcg PO DAILY [facility] Last Admin: 06/28/17 09:15 Dose: 500 mcg Dextrose (Dextrose 50% Inj) 25 ml IVP ONCE PRN PRN Reason: Hypoglycemia Ferrous Sulfate (Feosol) 324 mg PO TID [facility] Last Admin: 06/28/17 09:16 Dose: 324 mg Folic Acid (Folic Acid) 1 mg PO DAILY [facility] Last Admin: 06/28/17 09:16 Dose: 1 mg Meropenem 250 mg/ Sodium (Chloride) 100 mls @ 100 mls/hr IVPB Q12 [facility] PRN Reason: Protocol Stop: 07/06/17 10:01 Last Admin: 06/28/17 09:16 Dose: 100 mls/hr Sodium Chloride (Sodium Chloride 0.45%) 1,000 mls @ 100 mls/hr IV .Q10H [facility] Insulin Human Regular (Humulin R Low) 0 units SC ACHS [facility] PRN Reason: Protocol Last Admin: 06/28/17 08:05 Dose: Not Given Linezolid (Zyvox) 600 mg PO BID [facility] PRN Reason: Protocol Stop: 07/06/17 10:01 Last Admin: 06/28/17 09:15 Dose: 600 mg Multivitamins/Minerals (Therapeutic-M Tab) 1 tab PO 0800 [facility] Last Admin: 06/28/17 09:16 Dose: 1 tab Mupirocin (Bactroban Ointment) 0.5 gm TOP BID [facility] Last Admin: 06/28/17 09:16 Dose: 1 applic Pantoprazole Sodium (Protonix Ec Tab) 40 mg PO 0600 [facility] Last Admin: 06/28/17 05:43 Dose: 40 mg Sodium Bicarbonate (Sodium Bicarbonate Tab) 1,300 mg PO QID [facility] Last Admin: 06/28/17 09:15 Dose: 1,300 mg - Labs Labs: 06/28/17 06:30 06/28/17 09:04 PT 14.7 SECONDS (9.4-12.5) H 06/26/17 16:01 INR 1.28 (0.93-1.08) H 06/26/17 16:01 APTT 33.9 Seconds (25.1-36.5) 06/26/17 16:01
[2017-06-28] MEDS: Metoprolol Succinate 25 mg XL Tab PO SCH (11:49)
[2017-06-28] MEDS ORDERED: Sodium Chloride 0.9% 1,000 ML IV SCH (13:30)
[2017-06-28] MEDS ORDERED: Propofol 10 mg/ml Inj (20 ML) ONE (13:35)
[2017-06-28] MEDS ORDERED: Etomidate 20 mg/10ml Inj IV ONE ×2 (13:35→13:49)
[2017-06-28] MEDS ORDERED: Midazolam 2 MG/2 ML VIAL ONE ×2 (13:46→13:54)
--- NOTE | 2017-06-28 14:17 | CARD ---
APPROVED REPORT EKG Measurement Heart [id number] <Conclusion> Sinus tachycardia Otherwise normal ECG
--- NOTE | 2017-06-28 15:02 | CP.PCM.PN ---
<KeeganNatanael - Last Filed: 06/28/17 14:59> Subjective - Date & Time of Evaluation Date of Evaluation: 06/28/17 Time of Evaluation: 15:04 - Subjective Subjective: Patient seen and examined this AM. Over past 24 hours patient was noted to be tachycardic and short of breath during yesterday evening, patient was bolused IVF with resolution of symptoms. Today columba reports pain in her lower extremities. She denies chest pain, shortness of breath, nausea, vomiting, fever , chills. Objective - Vital Signs/Intake and Output Vital Signs (last 24 hours): Temp Pulse Resp BP Pulse Ox 98.3 F 103 H 19 142/67 100 06/28/17 13:55 06/28/17 13:55 06/28/17 13:55 06/28/17 13:55 06/28/17 13:55 Intake and Output: 06/28/17 06/28/17 06:59 18:59 Intake Total 2300 Balance 2300 - Medications Medications: Current Medications Acetaminophen (Tylenol 325mg Tab) 650 mg PO Q6H PRN PRN Reason: Fever >100.4 F Last Admin: 06/27/17 19:06 Dose: 650 mg Collagenase (Santyl) 0 gm TOP DAILY [facility] Last Admin: 06/28/17 09:17 Dose: Not Given Cyanocobalamin (Vitamin B12 1000 Mcg Tab) 500 mcg PO DAILY [facility] Last Admin: 06/28/17 09:15 Dose: 500 mcg Dextrose (Dextrose 50% Inj) 25 ml IVP ONCE PRN PRN Reason: Hypoglycemia Ferrous Sulfate (Feosol) 324 mg PO TID [facility] Last Admin: 06/28/17 14:04 Dose: Not Given Folic Acid (Folic Acid) 1 mg PO DAILY [facility] Last Admin: 06/28/17 09:16 Dose: 1 mg Meropenem 250 mg/ Sodium (Chloride) 100 mls @ 100 mls/hr IVPB Q12 [facility] PRN Reason: Protocol Stop: 07/06/17 10:01 Last Admin: 06/28/17 09:16 Dose: 100 mls/hr Sodium Chloride (Sodium Chloride 0.9%) 1,000 mls @ 100 mls/hr IV .Q10H [facility] Insulin Human Regular (Humulin R Low) 0 units SC ACHS [facility] PRN Reason: Protocol Last Admin: 06/28/17 12:00 Dose: Not Given Linezolid (Zyvox) 600 mg PO BID [facility] PRN Reason: Protocol Stop: 07/06/17 10:01 Last Admin: 06/28/17 09:15 Dose: 600 mg Metoprolol Succinate (Toprol Xl) 25 mg PO BRK [facility] Last Admin: 06/28/17 11:49 Dose: 25 mg Multivitamins/Minerals (Therapeutic-M Tab) 1 tab PO 0800 [facility] Last Admin: 06/28/17 09:16 Dose: 1 tab Mupirocin (Bactroban Ointment) 0.5 gm TOP BID [facility] Last Admin: 06/28/17 09:16 Dose: 1 applic Pantoprazole Sodium (Protonix Ec Tab) 40 mg PO 0600 [facility] Last Admin: 06/28/17 05:43 Dose: 40 mg Sodium Bicarbonate (Sodium Bicarbonate Tab) 1,300 mg PO QID [facility] Last Admin: 06/28/17 14:04 Dose: Not Given - Labs Labs: 06/28/17 06:30 06/28/17 09:04 PT 14.7 SECONDS (9.4-12.5) H 06/26/17 16:01 INR 1.28 (0.93-1.08) H 06/26/17 16:01 APTT 33.9 Seconds (25.1-36.5) 06/26/17 16:01 - Constitutional Appears: No Acute Distress - Head Exam Head Exam: ATRAUMATIC, NORMAL INSPECTION, NORMOCEPHALIC - Eye Exam Eye Exam: EOMI, PERRL - ENT Exam ENT Exam: Mucous Membranes Moist - Neck Exam Neck Exam: Full ROM - Respiratory Exam Respiratory Exam: Clear to Ausculation Bilateral, NORMAL BREATHING PATTERN. absent: Rhonchi, Wheezes - Cardiovascular Exam Cardiovascular Exam: Tachycardia, +S1, +S2 - GI/Abdominal Exam GI & Abdominal Exam: Soft, Normal Bowel Sounds. absent: Tenderness - Extremities Exam Extremities Exam: Normal Inspection. absent: Pedal Edema - Neurological Exam Neurological Exam: Alert, Awake, Oriented x3 Additional comments: motor and sensory grossly intact - Psychiatric Exam Psychiatric exam: Normal Affect, Normal Mood - Skin Skin Exam: Dry, Warm Additional comments: slight redness to her skin, according to patient at baseline Right lateral foot wound measuring approx 2.5 cm x 2.5 cm x 0.2 cm, wound base is mainly fibrotic with hyperkeratotic tissue in the wound bed, no granular tissue noted, approx. Wound measuring approx 1.5 cm x 1.0 cm x 0.2 cm noted on the anterior lateral aspect of the left ankle with another small wound distal medial to the ankle wound, wound base is mainly fibrotic with hyperkeratotic tissue in the wound bed Assessment and Plan - Assessment and Plan (Free Text) Assessment: 61 year old female with history of PVD, CKD, HTN, iron deficiency anemia who initially presented to hospital with complaint of non-healing RLE ulceration. Patient found to be anemic likely secondary to ACD vs. Iron deficiency anemia, FREDY likely secondary to dehydration, and UTI. Plan: Cellulitis vs. OM of right foot Details: - Nonhealing right foot ulcer likely from poor vascular disease, - On admission febrile w/out elevation WBC - Right foot xray: negative for acute fractures or changes concerning for OM Plan: - ID consulted, f/u recs - Percocet for pain - Podiatry consulted, f/u recs - Merropenema and xyvox for abx FREDY Details: - etiology: dehydration vs. infection - Nephrology consulted - Urine Sodium 101 - Urine cr 47 - Cr showing improvement Plan: - IVF - F/u nephro recs UTI Details: - UA positive for leuk est, nitrates - ID consulted, Nephro consulted Plan: - F/u urine culture - Continue current antibiotics Anemia Deatils: - Likely etiology anemia of chronic disease with iron deficiency anemia - H/H low on admission ~ 6.7 (baseline 11) - s/p 2 transfusions pRBC - H/H stable - Retic count 1.6 Plan: - H/H stable, monitor at this point - Gi consult for investigation of etiology, f/u EGD and colonoscopy - EGD showing large erythematous hyperplastic polyp in the prepyloric reegion , gastritis, 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 DVT ppx: SCDs GI ppx: Protonix <Chaparro Alonzo - Last Filed: 06/28/17 18:26> Objective - Vital Signs/Intake and Output Vital Signs (last 24 hours): Temp Pulse Resp BP Pulse Ox 98.3 F 112 H 19 142/67 100 06/28/17 13:55 06/28/17 18:00 06/28/17 13:55 06/28/17 13:55 06/28/17 13:55 Intake and Output: 06/28/17 06/28/17 06:59 18:59 Intake Total 2300 Balance 2300 - Medications Medications: Current Medications Acetaminophen (Tylenol 325mg Tab) 650 mg PO Q6H PRN PRN Reason: Fever >100.4 F Last Admin: 06/27/17 19:06 Dose: 650 mg Collagenase (Santyl) 0 gm TOP DAILY [facility] Last Admin: 06/28/17 09:17 Dose: Not Given Cyanocobalamin (Vitamin B12 1000 Mcg Tab) 500 mcg PO DAILY [facility] Last Admin: 06/28/17 09:15 Dose: 500 mcg Dextrose (Dextrose 50% Inj) 25 ml IVP ONCE PRN PRN Reason: Hypoglycemia Ferrous Sulfate (Feosol) 324 mg PO TID [facility] Last Admin: 06/28/17 17:48 Dose: 324 mg Folic Acid (Folic Acid) 1 mg PO DAILY [facility] Last Admin: 06/28/17 09:16 Dose: 1 mg Meropenem 250 mg/ Sodium (Chloride) 100 mls @ 100 mls/hr IVPB Q12 [facility] PRN Reason: Protocol Stop: 07/06/17 10:01 Last Admin: 06/28/17 09:16 Dose: 100 mls/hr Sodium Chloride (Sodium Chloride 0.9%) 1,000 mls @ 100 mls/hr IV .Q10H [facility] Insulin Human Regular (Humulin R Low) 0 units SC ACHS [facility] PRN Reason: Protocol Last Admin: 06/28/17 17:49 Dose: Not Given Linezolid (Zyvox) 600 mg PO BID [facility] PRN Reason: Protocol Stop: 07/06/17 10:01 Last Admin: 06/28/17 17:48 Dose: 600 mg Metoprolol Succinate (Toprol Xl) 25 mg PO BRK [facility] Last Admin: 06/28/17 11:49 Dose: 25 mg Multivitamins/Minerals (Therapeutic-M Tab) 1 tab PO 0800 [facility] Last Admin: 06/28/17 09:16 Dose: 1 tab Mupirocin (Bactroban Ointment) 0.5 gm TOP BID [facility] Last Admin: 06/28/17 17:48 Dose: 1 applic Pantoprazole Sodium (Protonix Ec Tab) 40 mg PO 0600 [facility] Last Admin: 06/28/17 05:43 Dose: 40 mg Sodium Bicarbonate (Sodium Bicarbonate Tab) 1,300 mg PO QID [facility] Last Admin: 06/28/17 17:48 Dose: 1,300 mg - Labs Labs: 06/28/17 06:30 06/28/17 09:04 PT 14.7 SECONDS (9.4-12.5) H 06/26/17 16:01 INR 1.28 (0.93-1.08) H 06/26/17 16:01 APTT 33.9 Seconds (25.1-36.5) 06/26/17 16:01 Attending/Attestation - Attestation I have personally seen and examined this patient.: Yes I have fully participated in the care of the patient.: Yes I have reviewed all pertinent clinical information, including history, physical exam and plan: Yes Notes (Text): 06/28/17 18:17 Medical record note made by the resident after discussion with my direction and input after the patient was personally seen and examined by me. I have reviewed the chart and agree that the record accurately reflects by personal performance of the history, physical exam, data review, and medical decision-making, in the course for the patient. I have also personally directed the plan of care. 61 year old female with PMH of PVD, stage III CKD, HTN, iron deficiency anemia was admitted with sepsis , etiology UTI/infected heal ulcer , worsening anemia , SP 2 units of PRBC and acute on chronic renal failure.Patient urine cultures are growing gram negative edna ( E coli), wound cultures are growing stap and group B hemolytic strep, on IV antibiotics as per ID.Blood cultures are negative for any growth. Patient underwent EGD today that showed Chapito esophagus, gastritis and gastric Polyp,SP Plypectomy, hemoglobin is stable. Patient creatinin is slowly improving, has hypernatremia , on 1/2 NS , Nephrology is following. Management plan was discussed in detail with patient. Education was provided.
--- NOTE | 2017-06-28 17:33 | US ---
PROCEDURE: Lower extremity CASSIDY exam HISTORY: Peripheral vascular disease with pain and ulceration. Diabetes. PHYSICIAN(S): Ren Ortiz MD. FINDINGS: The resting CASSIDY's are normal: right, 0.96and left, 0.94. The brachial systolic pressures are symmetric. The high thigh pressures and waveforms are relatively normal. The calf PVR waveforms augment normally. No significant gradients are noted across the thighs. The ankle and metatarsal waveforms are relatively normal and symmetric. No significant pressure gradients are noted across the lower legs. IMPRESSION: 1. Relatively normal CASSIDY and PVR examination at rest.
--- NOTE | 2017-06-28 20:50 | PN ---
DATE: 06/28/2017 SUBJECTIVE: Patient is in bed, in no acute distress, was seen early this morning in 273, bed 3. She is still having pain in her foot. PHYSICAL EXAMINATION: VITAL SIGNS: Temperature is 98, blood pressure is 140/60, respiratory rate of 18, heart rate of 120. HEENT: Unremarkable. NECK: Supple. LUNGS: Have decreased breath sounds. HEART: Normal S1, S2. ABDOMEN: Soft, nontender. LABORATORY EXAMINATION: Reveals a white count of 5.4, hemoglobin of 9, platelets of 313, and coagulation is noted. Chemistries reveal a BUN of 21, creatinine of 1.8. LFTs are elevated. Urinalysis reveals nfl-[id number]-count wbc's, few bacteria. Microbiology reveals the right foot culture with group B beta hemolytic strep and Staph aureus. The staph aureus sensitivity is not available. Urine culture has E. coli that is pansensitive with the exception of resistance to Cipro. Blood cultures are negative. Review of orders reveals the patient to be on meropenem and linezolid. MRI is pending. 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 Severe sepsis with group B beta hemolytic strep and Staph aureus right foot cellulitis, must rule out underlying osteomyelitis and Escherichia coli urinary tract infection, on Zyvox and meropenem. We will check on the sensitivity of the organism, should check on the MRI, rule-out osteomyelitis and make further recommendations. Carroll Castellano MD
[2017-06-29] MEDS: Pantoprazole 40 mg EC Tab PO SCH (05:01)
[2017-06-29 07:22] LABS: BASO # 0.01 K/mm3 (0.0-2.0); BASO % 0.2 % (0.0-3.0); EOS # 0.6 (0.0-0.7); EOS % 9.6 % (1.5-5.0); GRAN # 3.61 (1.4-6.5); HEMOGLOBIN 9.6 g/dL (12.0-16.0); LYMPH # 1.1 (1.2-3.4); MEAN CELL VOLUME 91.6 fl (80.0-105.0); MEAN CORPUSCULAR HEMOGLOBIN 29.8 pg (25.0-35.0); MEAN CORPUSCULAR HGB CONC 32.5 g/dl (31.0-37.0); MONO # 0.5 (0.1-0.6); MONO % 8.2 % (1.0-6.0); RBC 3.22 10^6/uL (3.5-6.1); RED CELL DISTRIBUTION WIDTH 15.8 % (11.5-14.5); WHITE BLOOD COUNT 5.7 10^3/ul (4.5-11.0)
[2017-06-29] MEDS: Insulin Reg-LOW-Coverage SC SCH ×4 (07:40→17:01)
[2017-06-29 07:50] LABS: ALBUMIN 2.8 g/dL (3.0-4.8); CALCIUM 8.7 mg/dL (8.4-10.5)
[2017-06-29] MEDS: Metoprolol Succinate 25 mg XL Tab PO SCH (09:28)
[2017-06-29] MEDS: Multivitamin With Minerals Tab PO SCH (09:28)
[2017-06-29] MEDS: Collagenase 250 Units/gm Ointment(30 gm) TOP SCH ×2 (09:29→17:36)
--- NOTE | 2017-06-29 10:15 | CP.PCM.PN ---
Subjective - Date & Time of Evaluation Date of Evaluation: 06/29/17 Time of Evaluation: 10:06 - Subjective Subjective: Patient seen and examined, resting in bed comfortably. No acute events overnight, she is seen eating breakfast without any difficulty. She complains of b/l upper extremity swelling but otherwise denies nausea, vomiting, fever/ chills. Review of vitals from today shows tachycardia. 12 point review of systems performed, negative aside from mentioned above. Objective - Vital Signs/Intake and Output Vital Signs (last 24 hours): Temp Pulse Resp BP Pulse Ox 99.3 F 113 H 19 126/66 100 06/29/17 01:20 06/29/17 01:20 06/29/17 01:20 06/29/17 09:28 06/28/17 13:55 Intake and Output: 06/29/17 06/29/17 06:59 18:59 Intake Total 120 Balance 120 - Medications Medications: Current Medications Acetaminophen (Tylenol 325mg Tab) 650 mg PO Q6H PRN PRN Reason: Fever >100.4 F Last Admin: 06/27/17 19:06 Dose: 650 mg Collagenase (Santyl) 0 gm TOP DAILY [facility] Last Admin: 06/29/17 09:29 Dose: Not Given Cyanocobalamin (Vitamin B12 1000 Mcg Tab) 500 mcg PO DAILY [facility] Last Admin: 06/29/17 09:27 Dose: 500 mcg Dextrose (Dextrose 50% Inj) 25 ml IVP ONCE PRN PRN Reason: Hypoglycemia Ferrous Sulfate (Feosol) 324 mg PO TID [facility] Last Admin: 06/29/17 09:27 Dose: 324 mg Folic Acid (Folic Acid) 1 mg PO DAILY [facility] Last Admin: 06/29/17 09:27 Dose: 1 mg Meropenem 250 mg/ Sodium (Chloride) 100 mls @ 100 mls/hr IVPB Q12 [facility] PRN Reason: Protocol Stop: 07/06/17 10:01 Last Admin: 06/29/17 09:37 Dose: 100 mls/hr Sodium Chloride (Sodium Chloride 0.9%) 1,000 mls @ 100 mls/hr IV .Q10H [facility] Insulin Human Regular (Humulin R Low) 0 units SC ACHS [facility] PRN Reason: Protocol Last Admin: 06/29/17 07:40 Dose: Not Given Linezolid (Zyvox) 600 mg PO BID [facility] PRN Reason: Protocol Stop: 07/06/17 10:01 Last Admin: 06/29/17 09:27 Dose: 600 mg Metoprolol Succinate (Toprol Xl) 25 mg PO BRK [facility] Last Admin: 06/29/17 09:28 Dose: 25 mg Multivitamins/Minerals (Therapeutic-M Tab) 1 tab PO 0800 [facility] Last Admin: 06/29/17 09:28 Dose: 1 tab Mupirocin (Bactroban Ointment) 0.5 gm TOP BID [facility] Last Admin: 06/29/17 09:28 Dose: 1 applic Pantoprazole Sodium (Protonix Ec Tab) 40 mg PO 0600 [facility] Last Admin: 06/29/17 05:01 Dose: 40 mg Sodium Bicarbonate (Sodium Bicarbonate Tab) 1,300 mg PO QID [facility] Last Admin: 06/29/17 09:29 Dose: 1,300 mg - Labs Labs: 06/29/17 07:00 06/29/17 07:00 PT 14.7 SECONDS (9.4-12.5) H 06/26/17 16:01 INR 1.28 (0.93-1.08) H 06/26/17 16:01 APTT 33.9 Seconds (25.1-36.5) 06/26/17 16:01 - Constitutional Appears: Non-toxic, No Acute Distress - Head Exam Head Exam: NORMAL INSPECTION - Eye Exam Eye Exam: EOMI, Normal appearance - ENT Exam ENT Exam: Mucous Membranes Moist - Respiratory Exam Respiratory Exam: Clear to Ausculation Bilateral - Cardiovascular Exam Cardiovascular Exam: +S1, +S2 - GI/Abdominal Exam GI & Abdominal Exam: Soft, Normal Bowel Sounds Additional comments: non tender to palpation in four quadrants - Extremities Exam Additional comments: +ulnar deviation - Skin Skin Exam: Dry, Intact, Normal Color, Warm Assessment and Plan - Assessment and Plan (Free Text) Assessment: PVD HTN CKD Anemia, s/p EGD yesterday showing large 3 cm polypoid gastric lesion s/p resection with endoclip placement Plan: - Diet as tolerated - H/H stable, continue to monitor, no evidence of overt GI bleeding noted - Follow up EGD biopsy results - Patient will require additional outpatient follow up along with colonoscopy to complete anemia workup which should be performed electively as outpatient. She will be given office appointment to follow up with Dr. Gaitan. No additional planned inpatient interventions, will sign off case. Please reconsult as necessary, thank you.
--- NOTE | 2017-06-29 10:43 | CP.PCM.PN ---
Subjective - Date & Time of Evaluation Date of Evaluation: 06/29/17 Time of Evaluation: 10:42 - Subjective Subjective: Nephrology Consultation Note: Assessment: Stable Acute Kidney Injury (N17.9) likely hemodynamic due to low BP, sepsis: improved UTI, feet wound infection severe anemia, acidosis (possible RTA), hypernatremia Diabetic chronic Kidney Disease (E11.22) Hypertensive Chronic Kidney Disease (I12.9) Chronic Kidney Disease (N18.3) Stage 3 Anemia (D64.9), Secondary Hyperparathyroidism (E21.1), Vit D def, HTN (I12.9) hearing loss, esophageal stenosis, basal cell CA on nasal skin s/p removal EGD showed gastric polyps and gastritis Plan No acute need for renal replacement therapy at this time. No ACEI/ARB due to FREDY and hyperkalemia in past. maintain hemodynamics stable. consider to resume Toprol XL 25 mg/day to avoid BB withdrawal Monitor Input/Output, daily weights and renal function with basic metabolic panel resume Sodium bicarb 1300 mg qid, also on iron and MVI supplements. dose of ananesp 06/27/17, s/p PRBC transfusion continue with IVF as 0.45% saline since serum Na higher check urine Na/K/Cl to calculate UAG Dose meds/antibiotics for improved GFR. Avoid fleets enema/magnesium based laxatives. Avoid nephrotoxins/NSAIDs/ iodinated contrast (unless needed emergently) Glycemic control Further work up/management as per primary team Thanks for allowing me to participate in care of your patient. Will follow patient with you. Please call if any Qs. d/w team Dr Javier Reyes Office: [phone] HPI: Pt is a 61 y/o F with hx of diabetes Mellitus ( x 8-9 years) with retinopathy, hypertension, hearing loss, esophageal stenosis, chronic anemia, basal cell CA on nasal skin s/p removal recurrent AKIs, now has CKD stage 3. now readmitted for Sepsis with anemia and FREDY renal consult for FREDY management. Denies chest pain, palpitation, shortness of breath, leg swelling. says foot pain better Has chronic loose stool 2-3 times/day but better now a days. ROS: pt denies any new complaints. no CP/SOB. no pain abdomen General Appearance: Comfortable, in no acute respiratory distress, co- operative. thin built. Vitals reviewed and noted Head; Atraumatic, normocephalic ENT: no ulcers no thrush. Tongue is midline. Oropharynx: no rash or ulcers. Hard of hearing. Uses hearing aid. EYES: Pupils are equal, round and reactive to light accommodation. Eye muscles and extraocular movement intact. Sclera is anicteric. Neck; supple no lymphadenopathy, no thyromegaly or bruit Lungs: Normal respiratory rate/effort. Breath sounds bilateral equal and clear Heart: Increased rate. s1s2 normal. No rub or gallop. Extremities: no edema with wound dressed at feet. No varicose veins. Hand osteoarthritic deformities +. Neurological: Patient is alert, awake and oriented to person, place and time. No focal deficit. Strength bilateral appropriate and equal Skin: Warm and dry. Normal turgor. Palpitation: Normal elasticity for age. upper torso/face appears flushed/erythematous Abdomen: Abdomen is soft. Bowel sounds +. There is no abdominal tenderness, no guarding/rigidity or organomegaly Psych: normal insight and normal affect/mood MSK: no joint tenderness or swelling. hands swelling noted : kidney or bladder not palpable Labs/imaging reviewed. Past medical history, past surgical history, family history, social history, allergy reviewed and noted as below Family hx: no hx of CKD. Rest non-contributory Work up: 09/13/2016: GN serologies all negative, scleroderma work up neg, SPEP/LUDY neg Renal sono: b/l cortical atrophy. Small 1 cm Rt kidney simple cyst. Objective - Vital Signs/Intake and Output Vital Signs (last 24 hours): Temp Pulse Resp BP Pulse Ox 99.3 F 113 H 19 126/66 100 06/29/17 01:20 06/29/17 01:20 06/29/17 01:20 06/29/17 09:28 06/28/17 13:55 Intake and Output: 06/29/17 06/29/17 06:59 18:59 Intake Total 120 Balance 120 - Medications Medications: Current Medications Acetaminophen (Tylenol 325mg Tab) 650 mg PO Q6H PRN PRN Reason: Fever >100.4 F Last Admin: 06/27/17 19:06 Dose: 650 mg Collagenase (Santyl) 0 gm TOP DAILY [facility] Last Admin: 06/29/17 09:29 Dose: Not Given Cyanocobalamin (Vitamin B12 1000 Mcg Tab) 500 mcg PO DAILY [facility] Last Admin: 06/29/17 09:27 Dose: 500 mcg Dextrose (Dextrose 50% Inj) 25 ml IVP ONCE PRN PRN Reason: Hypoglycemia Ferrous Sulfate (Feosol) 324 mg PO TID [facility] Last Admin: 06/29/17 09:27 Dose: 324 mg Folic Acid (Folic Acid) 1 mg PO DAILY [facility] Last Admin: 06/29/17 09:27 Dose: 1 mg Meropenem 250 mg/ Sodium (Chloride) 100 mls @ 100 mls/hr IVPB Q12 [facility] PRN Reason: Protocol Stop: 07/06/17 10:01 Last Admin: 06/29/17 09:37 Dose: 100 mls/hr Sodium Chloride (Sodium Chloride 0.45%) 1,000 mls @ 100 mls/hr IV .Q10H [facility] Insulin Human Regular (Humulin R Low) 0 units SC ACHS [facility] PRN Reason: Protocol Last Admin: 06/29/17 07:40 Dose: Not Given Linezolid (Zyvox) 600 mg PO BID [facility] PRN Reason: Protocol Stop: 07/06/17 10:01 Last Admin: 06/29/17 09:27 Dose: 600 mg Metoprolol Succinate (Toprol Xl) 25 mg PO BRK [facility] Last Admin: 06/29/17 09:28 Dose: 25 mg Multivitamins/Minerals (Therapeutic-M Tab) 1 tab PO 0800 [facility] Last Admin: 06/29/17 09:28 Dose: 1 tab Mupirocin (Bactroban Ointment) 0.5 gm TOP BID [facility] Last Admin: 06/29/17 09:28 Dose: 1 applic Pantoprazole Sodium (Protonix Ec Tab) 40 mg PO 0600 [facility] Last Admin: 06/29/17 05:01 Dose: 40 mg Sodium Bicarbonate (Sodium Bicarbonate Tab) 1,300 mg PO QID [facility] Last Admin: 06/29/17 09:29 Dose: 1,300 mg - Labs Labs: 06/29/17 07:00 06/29/17 07:00 PT 14.7 SECONDS (9.4-12.5) H 06/26/17 16:01 INR 1.28 (0.93-1.08) H 06/26/17 16:01 APTT 33.9 Seconds (25.1-36.5) 06/26/17 16:01
[2017-06-29] MEDS: Sodium Chloride 0.45% 1,000 ML IV SCH (11:11)
--- NOTE | 2017-06-29 12:45 | CP.PCM.PN ---
<Natanale Allison - Last Filed: 06/29/17 12:41> Subjective - Date & Time of Evaluation Date of Evaluation: 06/29/17 Time of Evaluation: 12:41 - Subjective Subjective: Patient is seen and examined this AM. No acute events overnight. IV access established in foot. Patient needing IV access will be going for PICC line placement. Patient with minimal pain complaints at time of interview. Denies palpitations. Objective - Vital Signs/Intake and Output Vital Signs (last 24 hours): Temp Pulse Resp BP Pulse Ox 98.8 F 100 H 20 147/68 100 06/29/17 12:00 06/29/17 12:00 06/29/17 12:00 06/29/17 12:00 06/28/17 13:55 Intake and Output: 06/29/17 06/29/17 06:59 18:59 Intake Total 120 Balance 120 - Medications Medications: Current Medications Acetaminophen (Tylenol 325mg Tab) 650 mg PO Q6H PRN PRN Reason: Fever >100.4 F Last Admin: 06/27/17 19:06 Dose: 650 mg Collagenase (Santyl) 0 gm TOP DAILY [facility] Last Admin: 06/29/17 09:29 Dose: Not Given Cyanocobalamin (Vitamin B12 1000 Mcg Tab) 500 mcg PO DAILY [facility] Last Admin: 06/29/17 09:27 Dose: 500 mcg Dextrose (Dextrose 50% Inj) 25 ml IVP ONCE PRN PRN Reason: Hypoglycemia Ferrous Sulfate (Feosol) 324 mg PO TID [facility] Last Admin: 06/29/17 09:27 Dose: 324 mg Folic Acid (Folic Acid) 1 mg PO DAILY [facility] Last Admin: 06/29/17 09:27 Dose: 1 mg Meropenem 250 mg/ Sodium (Chloride) 100 mls @ 100 mls/hr IVPB Q12 [facility] PRN Reason: Protocol Stop: 07/06/17 10:01 Last Admin: 06/29/17 09:37 Dose: 100 mls/hr Sodium Chloride (Sodium Chloride 0.45%) 1,000 mls @ 100 mls/hr IV .Q10H [facility] Last Admin: 06/29/17 11:11 Dose: 100 mls/hr Insulin Human Regular (Humulin R Low) 0 units SC ACHS [facility] PRN Reason: Protocol Last Admin: 04/20/18 07:40 Dose: Not Given Linezolid (Zyvox) 600 mg PO BID [facility] PRN Reason: Protocol Stop: 07/06/17 10:01 Last Admin: 06/29/17 09:27 Dose: 600 mg Metoprolol Succinate (Toprol Xl) 25 mg PO BRK [facility] Last Admin: 06/29/17 09:28 Dose: 25 mg Multivitamins/Minerals (Therapeutic-M Tab) 1 tab PO 0800 [facility] Last Admin: 06/29/17 09:28 Dose: 1 tab Mupirocin (Bactroban Ointment) 0.5 gm TOP BID [facility] Last Admin: 06/29/17 09:28 Dose: 1 applic Pantoprazole Sodium (Protonix Ec Tab) 40 mg PO 0600 [facility] Last Admin: 06/29/17 05:01 Dose: 40 mg Sodium Bicarbonate (Sodium Bicarbonate Tab) 1,300 mg PO QID [facility] Last Admin: 06/29/17 09:29 Dose: 1,300 mg - Labs Labs: 06/29/17 07:00 06/29/17 07:00 PT 14.7 SECONDS (9.4-12.5) H 06/26/17 16:01 INR 1.28 (0.93-1.08) H 06/26/17 16:01 APTT 33.9 Seconds (25.1-36.5) 06/26/17 16:01 - Constitutional Appears: No Acute Distress - Head Exam Head Exam: ATRAUMATIC, NORMAL INSPECTION, NORMOCEPHALIC - ENT Exam ENT Exam: Mucous Membranes Moist - Respiratory Exam Respiratory Exam: Clear to Ausculation Bilateral, NORMAL BREATHING PATTERN. absent: Rhonchi, Wheezes - Cardiovascular Exam Cardiovascular Exam: Tachycardia, REGULAR RHYTHM, +S1, +S2 - GI/Abdominal Exam GI & Abdominal Exam: Soft, Normal Bowel Sounds. absent: Tenderness - Extremities Exam Extremities Exam: absent: Calf Tenderness, Pedal Edema - Neurological Exam Neurological Exam: Alert, Awake, Oriented x3 Additional comments: Motor and sensory grossly intact, able to follow simple commands - Psychiatric Exam Psychiatric exam: Normal Affect, Normal Mood - Skin Skin Exam: Dry, Warm Additional comments: Right lateral foot wound measuring approx 2.5 cm x 2.5 cm x 0.2 cm, wound base is mainly fibrotic with hyperkeratotic tissue in the wound bed, no granular tissue noted, approx. Wound measuring approx 1.5 cm x 1.0 cm x 0.2 cm noted on the anterior lateral aspect of the left ankle with another small wound distal medial to the ankle wound, wound base is mainly fibrotic with hyperkeratotic tissue in the wound bed Assessment and Plan - Assessment and Plan (Free Text) Assessment: 61 year old female with history of PVD, CKD, HTN, iron deficiency anemia who initially presented to hospital with complaint of non-healing RLE ulceration. Patient found to be anemic likely secondary to ACD vs. Iron deficiency anemia, FREDY likely secondary to dehydration, and UTI. Patient with gastric hyperplastic polyp s/p clipping with GI. Creatinne function improving. Plan: Cellulitis vs. OM of right foot Details: - Nonhealing right foot ulcer likely from poor vascular disease, - On admission febrile w/out elevation WBC - Right foot xray: negative for acute fractures or changes concerning for OM - Wound culture growing light MRSA and heavy Group B strep - MRI having to be held off for seven days due to clip placement Plan: - ID consulted, f/u recs - Percocet for pain - Podiatry consulted, f/u recs - Merropenema and xyvox for abx - Bone scan of both feet today for evaluation FREDY Details: - etiology: dehydration vs. infection - Nephrology consulted, following - Cr showing improvement - May be coming to baseline Plan: - IVF - F/u nephro recs UTI Details: - UA positive for leuk est, nitrates - ID consulted, Nephro consulted - Urine culture growin e.coli Plan: - Continue current antibiotics - ID following, f/u recs Anemia Deatils: - Likely etiology anemia of chronic disease with iron deficiency anemia - H/H low on admission ~ 6.7 (baseline 11) - s/p 2 transfusions pRBC - H/H stable - Retic count 1.6 Plan: - H/H stable, monitor at this point - Gi consult for investigation of etiology, f/u EGD and colonoscopy - EGD showing large erythematous hyperplastic polyp in the prepyloric reegion , gastritis, 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 DVT ppx: SCDs GI ppx: Protonix Case and plan discussed with attending <Chaparro Alonzo - Last Filed: 06/30/17 14:19> Objective - Vital Signs/Intake and Output Vital Signs (last 24 hours): Temp Pulse Resp BP Pulse Ox 98.2 F 100 H 18 133/80 100 06/30/17 08:18 06/30/17 08:46 06/30/17 08:18 06/30/17 08:46 06/30/17 08:18 Intake and Output: 06/30/17 06/30/17 06:59 18:59 Intake Total 1320 Balance 1320 - Medications Medications: Current Medications Acetaminophen (Tylenol 325mg Tab) 650 mg PO Q6H PRN PRN Reason: Fever >100.4 F Last Admin: 06/27/17 19:06 Dose: 650 mg Collagenase (Santyl) 0 gm TOP DAILY [facility] Last Admin: 06/30/17 11:49 Dose: 1 applic Cyanocobalamin (Vitamin B12 1000 Mcg Tab) 500 mcg PO DAILY [facility] Last Admin: 06/30/17 12:04 Dose: 500 mcg Dextrose (Dextrose 50% Inj) 25 ml IVP ONCE PRN PRN Reason: Hypoglycemia Ferrous Sulfate (Feosol) 324 mg PO TID [facility] Last Admin: 06/30/17 11:00 Dose: 324 mg Folic Acid (Folic Acid) 1 mg PO DAILY [facility] Last Admin: 06/30/17 11:00 Dose: 1 mg Meropenem 250 mg/ Sodium (Chloride) 100 mls @ 100 mls/hr IVPB Q12 [facility] PRN Reason: Protocol Stop: 07/06/17 10:01 Last Admin: 06/30/17 11:00 Dose: 100 mls/hr Sodium Chloride (Sodium Chloride 0.45%) 1,000 mls @ 100 mls/hr IV .Q10H [facility] Last Admin: 06/30/17 08:47 Dose: 100 mls/hr Insulin Human Regular (Humulin R Low) 0 units SC ACHS [facility] PRN Reason: Protocol Last Admin: 06/30/17 11:57 Dose: 2 units Linezolid (Zyvox) 600 mg PO BID [facility] PRN Reason: Protocol Stop: 07/06/17 10:01 Last Admin: 06/30/17 12:03 Dose: 600 mg Metoprolol Succinate (Toprol Xl) 25 mg PO BRK [facility] Last Admin: 06/30/17 08:46 Dose: 25 mg Multivitamins/Minerals (Therapeutic-M Tab) 1 tab PO 0800 [facility] Last Admin: 06/30/17 08:46 Dose: 1 tab Mupirocin (Bactroban Ointment) 0.5 gm TOP BID [facility] Last Admin: 06/30/17 11:50 Dose: 1 applic Pantoprazole Sodium (Protonix Ec Tab) 40 mg PO 0600 [facility] Last Admin: 06/30/17 05:31 Dose: 40 mg Sodium Bicarbonate (Sodium Bicarbonate Tab) 1,300 mg PO QID [facility] Last Admin: 06/30/17 12:03 Dose: 1,300 mg - Labs Labs: 06/30/17 05:20 06/30/17 05:20 PT 14.7 SECONDS (9.4-12.5) H 06/26/17 16:01 INR 1.28 (0.93-1.08) H 06/26/17 16:01 APTT 33.9 Seconds (25.1-36.5) 06/26/17 16:01 Attending/Attestation - Attestation I have personally seen and examined this patient.: Yes I have fully participated in the care of the patient.: Yes I have reviewed all pertinent clinical information, including history, physical exam and plan: Yes Notes (Text): 06/30/17 14:18 Medical record note made by the resident after discussion with my direction and input after the patient was personally seen and examined by me. I have reviewed the chart and agree that the record accurately reflects by personal performance of the history, physical exam, data review, and medical decision-making, in the course for the patient. I have also personally directed the plan of care. 61 year old female with PMH of PVD, stage III CKD, HTN, iron deficiency anemia was admitted with sepsis , etiology UTI/infected heal ulcer , worsening anemia , SP 2 units of PRBC and acute on chronic renal failure.Patient urine cultures are growing gram negative edna ( E coli), wound cultures are growing MRSA and group B hemolytic strep, on antibiotics as per ID.Blood cultures are negative for any growth. 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 Patient creatinin is improving, has mild hypernatremia.Nephrology is following Management plan was discussed in detail with patient. Education was provided.
[2017-06-29] MEDS ORDERED: Lidocaine 2% Inj (20ml) ONE (12:50)
--- NOTE | 2017-06-29 13:10 | CP.PCM.PN ---
<HerreraGiovanna [email or web address] - Last Filed: 06/29/17 13:06> Subjective - Date & Time of Evaluation Date of Evaluation: 06/29/17 Time of Evaluation: 13:06 - Subjective Subjective: Podiatry Consult note: Dr. Mattson/Dr. Raymond 61 year old female seen and evaluated regarding bilateral feet ulceration. Patient is AAOx3 and is in NAD. Reports of mild pain on the right foot. Denies of any N/V/SOB/CP. Denies of any other pedal complains now. Objective - Vital Signs/Intake and Output Vital Signs (last 24 hours): Temp Pulse Resp BP Pulse Ox 98.8 F 100 H 20 147/68 100 06/29/17 12:00 06/29/17 12:00 06/29/17 12:00 06/29/17 12:00 06/28/17 13:55 Intake and Output: 06/29/17 06/29/17 06:59 18:59 Intake Total 120 Balance 120 - Medications Medications: Current Medications Acetaminophen (Tylenol 325mg Tab) 650 mg PO Q6H PRN PRN Reason: Fever >100.4 F Last Admin: 06/27/17 19:06 Dose: 650 mg Collagenase (Santyl) 0 gm TOP DAILY [facility] Last Admin: 06/29/17 09:29 Dose: Not Given Cyanocobalamin (Vitamin B12 1000 Mcg Tab) 500 mcg PO DAILY [facility] Last Admin: 06/29/17 09:27 Dose: 500 mcg Dextrose (Dextrose 50% Inj) 25 ml IVP ONCE PRN PRN Reason: Hypoglycemia Ferrous Sulfate (Feosol) 324 mg PO TID [facility] Last Admin: 06/29/17 09:27 Dose: 324 mg Folic Acid (Folic Acid) 1 mg PO DAILY [facility] Last Admin: 06/29/17 09:27 Dose: 1 mg Meropenem 250 mg/ Sodium (Chloride) 100 mls @ 100 mls/hr IVPB Q12 [facility] PRN Reason: Protocol Stop: 07/06/17 10:01 Last Admin: 06/29/17 09:37 Dose: 100 mls/hr Sodium Chloride (Sodium Chloride 0.45%) 1,000 mls @ 100 mls/hr IV .Q10H [facility] Last Admin: 06/29/17 11:11 Dose: 100 mls/hr Insulin Human Regular (Humulin R Low) 0 units SC ACHS [facility] PRN Reason: Protocol Last Admin: 06/29/17 12:30 Dose: 2 units Linezolid (Zyvox) 600 mg PO BID [facility] PRN Reason: Protocol Stop: 07/06/17 10:01 Last Admin: 06/29/17 09:27 Dose: 600 mg Metoprolol Succinate (Toprol Xl) 25 mg PO BRK [facility] Last Admin: 06/29/17 09:28 Dose: 25 mg Multivitamins/Minerals (Therapeutic-M Tab) 1 tab PO 0800 [facility] Last Admin: 06/29/17 09:28 Dose: 1 tab Mupirocin (Bactroban Ointment) 0.5 gm TOP BID [facility] Last Admin: 06/29/17 09:28 Dose: 1 applic Pantoprazole Sodium (Protonix Ec Tab) 40 mg PO 0600 [facility] Last Admin: 06/29/17 05:01 Dose: 40 mg Sodium Bicarbonate (Sodium Bicarbonate Tab) 1,300 mg PO QID [facility] Last Admin: 06/29/17 09:29 Dose: 1,300 mg - Labs Labs: 06/29/17 07:00 06/29/17 07:00 PT 14.7 SECONDS (9.4-12.5) H 06/26/17 16:01 INR 1.28 (0.93-1.08) H 06/26/17 16:01 APTT 33.9 Seconds (25.1-36.5) 06/26/17 16:01 - Constitutional Appears: Well, Non-toxic, No Acute Distress - Extremities Exam Additional comments: Lower extremity focused examination: Vasc: DP/PT pulses palpable 2/4 B/L. Temperature gradient warm to warm from proximal to distal. Cap refill time: < 3 sec to all digits, mild non-pitting edema noted on bilateral LE (R>L) Derm: wound measuring approx 2.5 cm x 2.5 cm x 0.2 cm noted on the lateral aspect of the right foot, wound base is mainly fibrotic with hyperkeratotic tissue in the wound bed, no granular tissue noted, approx. 2 cc of purulence drainage noted from the wound up on applying pressure, no malodor, periwound erythema present, no tunneling, no undermining; Wound measuring approx 1.5 cm x 1.0 cm x 0.2 cm noted on the anterior lateral aspect of the left ankle with another small wound distal medial to the ankle wound, wound base is mainly fibrotic with hyperkeratotic tissue in the wound bed, no granular tissue noted, no active drainage, no malodor, periwound erythema present, no tunneling, no undermining, no purulence Neuro: Protective sensation is grossly intact B/L Ortho: Mild tenderness to palpation of right foot wound. Left ankle ulceration mildly tender - Neurological Exam Neurological Exam: Alert, Awake, Oriented x3 - Psychiatric Exam Psychiatric exam: Normal Affect, Normal Mood Assessment and Plan - Assessment and Plan (Free Text) Assessment: 61 year old female patient with bilateral foot wounds with cellulitis Plan: Patient seen and evaluated at bedside Discussed patient in details with attending Dr. Raymond Labs, vitals and charts reviewed- afebrile, WBC 5.7 Right foot wound cultures: Group B strep, MRSA Continue IV abx - meropenem and linezolid Bilateral ulcerations cleansed with saline and dressing applied using santyl, optifoam Arterial duplex scan 03/29 - mildly abnormal CASSIDY Bilateral foot and ankle MRI ordered - unable to obtain; await bone scan results Vascular Consult - Dr. Ortiz Multipodus boots to be worn at all times while in bed Patient is allowed PWB to right heel in a surgical shoe Podiatry will follow patient while in-house <Jose Raymond - Last Filed: 06/30/17 08:41> Objective - Vital Signs/Intake and Output Vital Signs (last 24 hours): Temp Pulse Resp BP Pulse Ox 98.2 F 100 H 18 133/80 100 06/30/17 08:18 06/30/17 08:18 06/30/17 08:18 06/30/17 08:18 06/30/17 08:18 Intake and Output: 06/30/17 06/30/17 06:59 18:59 Intake Total 1320 Balance 1320 - Medications Medications: Current Medications Acetaminophen (Tylenol 325mg Tab) 650 mg PO Q6H PRN PRN Reason: Fever >100.4 F Last Admin: 06/27/17 19:06 Dose: 650 mg Collagenase (Santyl) 0 gm TOP DAILY [facility] Last Admin: 06/29/17 17:36 Dose: 1 applic Cyanocobalamin (Vitamin B12 1000 Mcg Tab) 500 mcg PO DAILY [facility] Last Admin: 06/29/17 09:27 Dose: 500 mcg Dextrose (Dextrose 50% Inj) 25 ml IVP ONCE PRN PRN Reason: Hypoglycemia Ferrous Sulfate (Feosol) 324 mg PO TID [facility] Last Admin: 06/29/17 17:39 Dose: 324 mg Folic Acid (Folic Acid) 1 mg PO DAILY [facility] Last Admin: 06/29/17 09:27 Dose: 1 mg Meropenem 250 mg/ Sodium (Chloride) 100 mls @ 100 mls/hr IVPB Q12 [facility] PRN Reason: Protocol Stop: 07/06/17 10:01 Last Admin: 06/29/17 22:16 Dose: 100 mls/hr Sodium Chloride (Sodium Chloride 0.45%) 1,000 mls @ 100 mls/hr IV .Q10H [facility] Last Admin: 06/29/17 11:11 Dose: 100 mls/hr Insulin Human Regular (Humulin R Low) 0 units SC ACHS [facility] PRN Reason: Protocol Last Admin: 06/30/17 04:54 Dose: Not Given Linezolid (Zyvox) 600 mg PO BID [facility] PRN Reason: Protocol Stop: 07/06/17 10:01 Last Admin: 06/29/17 17:39 Dose: 600 mg Metoprolol Succinate (Toprol Xl) 25 mg PO BRK [facility] Last Admin: 06/29/17 09:28 Dose: 25 mg Multivitamins/Minerals (Therapeutic-M Tab) 1 tab PO 0800 [facility] Last Admin: 06/29/17 09:28 Dose: 1 tab Mupirocin (Bactroban Ointment) 0.5 gm TOP BID [facility] Last Admin: 06/29/17 17:35 Dose: 1 applic Pantoprazole Sodium (Protonix Ec Tab) 40 mg PO 0600 [facility] Last Admin: 06/30/17 05:31 Dose: 40 mg Sodium Bicarbonate (Sodium Bicarbonate Tab) 1,300 mg PO QID [facility] Last Admin: 06/30/17 04:56 Dose: 1,300 mg - Labs Labs: 06/30/17 05:20 06/30/17 05:20 PT 14.7 SECONDS (9.4-12.5) H 06/26/17 16:01 INR 1.28 (0.93-1.08) H 06/26/17 16:01 APTT 33.9 Seconds (25.1-36.5) 06/26/17 16:01 Attending/Attestation - Attestation I have personally seen and examined this patient.: Yes I have fully participated in the care of the patient.: Yes I have reviewed all pertinent clinical information, including history, physical exam and plan: Yes
--- NOTE | 2017-06-29 14:43 | VASCULAR ---
PROCEDURE: Ultrasound and fluoroscopically placed left upper extremity PICC line. HISTORY: Right foot osteomyelitis. Long-term IV antibiotics. Needs PICC line. PHYSICIAN(S): Ren Ortiz MD. TECHNIQUE: The relative risks and indications of the procedure were explained to the patient and consent obtained. The patient was placed supine on the arteriogram table and the left arm prepped and draped in the usual sterile fashion. A tourniquet was applied to the left axilla. 1% Xylocaine was used to anesthetize the skin and soft tissues at the puncture site above the elbow. The left brachial vein was punctured under direct ultrasound guidance with a micropuncture set. A 0.018 guidewire was advanced centrally and used to measure the length to the SVC/RA junction. A 5 [place] single-lumen PICC line 35 cm long was advanced to the SVC/RA junction. The catheter was flushed and secured. The patient tolerated the procedure well. IMPRESSION: 1. Ultrasound and fluoroscopically placed left upper extremity PICC line. A 5 [place] single-lumen PICC line 35 cm long was advanced to the SVC/RA junction.
--- NOTE | 2017-06-29 20:49 | CP.PCM.PN ---
Subjective - Date & Time of Evaluation Date of Evaluation: 06/28/17 Time of Evaluation: 10:50 - Subjective Subjective: Afebrile, not in distress, no diarrhea. Objective - Vital Signs/Intake and Output Vital Signs (last 24 hours): Temp Pulse Resp BP Pulse Ox 98.3 F 115 H 19 142/67 100 06/28/17 13:55 06/28/17 22:00 06/28/17 13:55 06/28/17 13:55 06/28/17 13:55 - Medications Medications: Current Medications Acetaminophen (Tylenol 325mg Tab) 650 mg PO Q6H PRN PRN Reason: Fever >100.4 F Last Admin: 06/27/17 19:06 Dose: 650 mg Collagenase (Santyl) 0 gm TOP DAILY [facility] Last Admin: 06/28/17 09:17 Dose: Not Given Cyanocobalamin (Vitamin B12 1000 Mcg Tab) 500 mcg PO DAILY [facility] Last Admin: 06/28/17 09:15 Dose: 500 mcg Dextrose (Dextrose 50% Inj) 25 ml IVP ONCE PRN PRN Reason: Hypoglycemia Ferrous Sulfate (Feosol) 324 mg PO TID [facility] Last Admin: 06/28/17 17:48 Dose: 324 mg Folic Acid (Folic Acid) 1 mg PO DAILY [facility] Last Admin: 06/28/17 09:16 Dose: 1 mg Meropenem 250 mg/ Sodium (Chloride) 100 mls @ 100 mls/hr IVPB Q12 [facility] PRN Reason: Protocol Stop: 07/06/17 10:01 Last Admin: 06/28/17 09:16 Dose: 100 mls/hr Sodium Chloride (Sodium Chloride 0.9%) 1,000 mls @ 100 mls/hr IV .Q10H [facility] Insulin Human Regular (Humulin R Low) 0 units SC ACHS [facility] PRN Reason: Protocol Last Admin: 06/28/17 17:49 Dose: Not Given Linezolid (Zyvox) 600 mg PO BID [facility] PRN Reason: Protocol Stop: 07/06/17 10:01 Last Admin: 06/28/17 17:48 Dose: 600 mg Metoprolol Succinate (Toprol Xl) 25 mg PO BRK [facility] Last Admin: 06/28/17 11:49 Dose: 25 mg Multivitamins/Minerals (Therapeutic-M Tab) 1 tab PO 0800 [facility] Last Admin: 06/28/17 09:16 Dose: 1 tab Mupirocin (Bactroban Ointment) 0.5 gm TOP BID [facility] Last Admin: 06/28/17 17:48 Dose: 1 applic Pantoprazole Sodium (Protonix Ec Tab) 40 mg PO 0600 [facility] Last Admin: 06/28/17 05:43 Dose: 40 mg Sodium Bicarbonate (Sodium Bicarbonate Tab) 1,300 mg PO QID [facility] Last Admin: 06/28/17 17:48 Dose: 1,300 mg - Labs Labs: 06/28/17 06:30 06/28/17 09:04 PT 14.7 SECONDS (9.4-12.5) H 06/26/17 16:01 INR 1.28 (0.93-1.08) H 06/26/17 16:01 APTT 33.9 Seconds (25.1-36.5) 06/26/17 16:01 - Constitutional Appears: Non-toxic, Chronically Ill - Head Exam Head Exam: NORMAL INSPECTION - ENT Exam ENT Exam: Mucous Membranes Moist - Respiratory Exam Respiratory Exam: Decreased Breath Sounds - Cardiovascular Exam Cardiovascular Exam: +S1, +S2 - GI/Abdominal Exam GI & Abdominal Exam: Soft. absent: Tenderness - Extremities Exam Additional comments: right foot with dressings in place Assessment and Plan - Assessment and Plan (Free Text) Plan: Assessment severe sepsis due to right foot cellulitis with Group B Strep and Methicilin- resistant Staph aureus R/O acute on chronic osteomyelitis with history of partial resection history of Acute osteomyelitis of the left foot; grew beta hemolytic strep DM Plan continue Zyvox and Merrem; follow up bone scan results follow up further plans of Podiatry will monitor clinically
[2017-06-30] MEDS: Insulin Reg-LOW-Coverage SC SCH ×5 (04:54→22:26)
[2017-06-30] MEDS: Pantoprazole 40 mg EC Tab PO SCH (05:31)
[2017-06-30 05:47] LABS: EOS # 0.5 (0.0-0.7); EOS % 8.9 % (1.5-5.0); GRAN # 3.89 (1.4-6.5); HEMOGLOBIN 9.8 g/dL (12.0-16.0); LYMPH # 1.2 (1.2-3.4); LYMPH % 18.9 % (22.0-35.0); MEAN CELL VOLUME 91.2 fl (80.0-105.0); MEAN CORPUSCULAR HEMOGLOBIN 29.7 pg (25.0-35.0); MEAN CORPUSCULAR HGB CONC 32.6 g/dl (31.0-37.0); MONO # 0.5 (0.1-0.6); MONO % 8.2 % (1.0-6.0); RBC 3.3 10^6/uL (3.5-6.1); RED CELL DISTRIBUTION WIDTH 15.5 % (11.5-14.5); WHITE BLOOD COUNT 6.1 10^3/ul (4.5-11.0)
[2017-06-30 06:01] LABS: ALBUMIN 2.9 g/dL (3.0-4.8); CALCIUM 8.4 mg/dL (8.4-10.5)
[2017-06-30] MEDS: Metoprolol Succinate 25 mg XL Tab PO SCH (08:46)
[2017-06-30] MEDS: Multivitamin With Minerals Tab PO SCH (08:46)
[2017-06-30] MEDS: Sodium Chloride 0.45% 1,000 ML IV SCH (08:47)
--- NOTE | 2017-06-30 10:19 | CP.PCM.PN ---
<Sincere Galvan - Last Filed: 06/30/17 10:13> Subjective - Date & Time of Evaluation Date of Evaluation: 06/30/17 Time of Evaluation: 10:13 - Subjective Subjective: Podiatry Consult note: Dr. Mattson/Dr. Raymond 61 year old female seen and evaluated at bedside for ulcerations to bilateral feet. Patient resting in bed comfortably, NAD. NAEON. Reports continued pain to right foot wound however well controlled. Multipodus boot present to LLE. Denies N/V/F/D/C/SOB/CP/CHAMBERS/dizziness. Offers no other pedal complaints at this time. Objective - Vital Signs/Intake and Output Vital Signs (last 24 hours): Temp Pulse Resp BP Pulse Ox 98.2 F 100 H 18 133/80 100 06/30/17 08:18 06/30/17 08:46 06/30/17 08:18 06/30/17 08:46 06/30/17 08:18 Intake and Output: 06/30/17 06/30/17 06:59 18:59 Intake Total 1320 Balance 1320 - Medications Medications: Current Medications Acetaminophen (Tylenol 325mg Tab) 650 mg PO Q6H PRN PRN Reason: Fever >100.4 F Last Admin: 06/27/17 19:06 Dose: 650 mg Collagenase (Santyl) 0 gm TOP DAILY [facility] Last Admin: 06/29/17 17:36 Dose: 1 applic Cyanocobalamin (Vitamin B12 1000 Mcg Tab) 500 mcg PO DAILY [facility] Last Admin: 06/29/17 09:27 Dose: 500 mcg Dextrose (Dextrose 50% Inj) 25 ml IVP ONCE PRN PRN Reason: Hypoglycemia Ferrous Sulfate (Feosol) 324 mg PO TID [facility] Last Admin: 06/29/17 17:39 Dose: 324 mg Folic Acid (Folic Acid) 1 mg PO DAILY [facility] Last Admin: 06/29/17 09:27 Dose: 1 mg Meropenem 250 mg/ Sodium (Chloride) 100 mls @ 100 mls/hr IVPB Q12 [facility] PRN Reason: Protocol Stop: 07/06/17 10:01 Last Admin: 06/29/17 22:16 Dose: 100 mls/hr Sodium Chloride (Sodium Chloride 0.45%) 1,000 mls @ 100 mls/hr IV .Q10H [facility] Last Admin: 06/30/17 08:47 Dose: 100 mls/hr Insulin Human Regular (Humulin R Low) 0 units SC ACHS [facility] PRN Reason: Protocol Last Admin: 06/30/17 08:30 Dose: Not Given Linezolid (Zyvox) 600 mg PO BID [facility] PRN Reason: Protocol Stop: 07/06/17 10:01 Last Admin: 06/29/17 17:39 Dose: 600 mg Metoprolol Succinate (Toprol Xl) 25 mg PO BRK [facility] Last Admin: 06/30/17 08:46 Dose: 25 mg Multivitamins/Minerals (Therapeutic-M Tab) 1 tab PO 0800 [facility] Last Admin: 06/30/17 08:46 Dose: 1 tab Mupirocin (Bactroban Ointment) 0.5 gm TOP BID [facility] Last Admin: 06/29/17 17:35 Dose: 1 applic Pantoprazole Sodium (Protonix Ec Tab) 40 mg PO 0600 [facility] Last Admin: 06/30/17 05:31 Dose: 40 mg Sodium Bicarbonate (Sodium Bicarbonate Tab) 1,300 mg PO QID [facility] Last Admin: 06/30/17 04:56 Dose: 1,300 mg - Labs Labs: 06/30/17 05:20 06/30/17 05:20 PT 14.7 SECONDS (9.4-12.5) H 06/26/17 16:01 INR 1.28 (0.93-1.08) H 06/26/17 16:01 APTT 33.9 Seconds (25.1-36.5) 06/26/17 16:01 - Constitutional Appears: Well, Non-toxic, No Acute Distress - Extremities Exam Additional comments: Lower extremity focused examination: Vasc: DP/PT pulses palpable 2/4 B/L. Temperature gradient warm to warm from proximal to distal. Cap refill time: < 3 sec to all digits, mild non-pitting edema noted on bilateral LE (R>L) Derm: wound measuring approx 2.5 cm x 2.5 cm x 0.2 cm noted on the lateral aspect of the right foot, wound base is mainly fibrotic with hyperkeratotic tissue in the wound bed, no granular tissue noted, approx. 2 cc of purulence drainage noted from the wound up on applying pressure, no malodor, periwound erythema present, no tunneling, no undermining; Wound measuring approx 1.5 cm x 1.0 cm x 0.2 cm noted on the anterior lateral aspect of the left ankle with another small wound distal medial to the ankle wound, wound base is mainly fibrotic with hyperkeratotic tissue in the wound bed, no granular tissue noted, no active drainage, no malodor, periwound erythema present, no tunneling, no undermining, no purulence Neuro: Protective sensation is grossly intact B/L Ortho: Mild tenderness to palpation of right foot wound. Left ankle ulceration mildly tender - Neurological Exam Neurological Exam: Alert, Awake, Oriented x3 - Psychiatric Exam Psychiatric exam: Normal Affect, Normal Mood Assessment and Plan - Assessment and Plan (Free Text) Assessment: 61 year old female patient with bilateral foot wounds with cellulitis, resolving Plan: Patient seen and evaluated with attending, Dr. Raymond Afebrile, WBC WNL 6.1 Right foot wound cultures: Group B strep, MRSA Continue IV abx - meropenem and linezolid Arterial duplex scan 03/29 - mildly abnormal CASSIDY Bilateral foot and ankle MRI ordered - unable to obtain F/u bone scan report Continue local wound care: -LLE saline cleanse, bactroban, optifoam -RLE saline cleanse, santyl, optifoam Multipodus boot ordered for RLE Vascular Consult - Dr. Ortiz Patient is allowed PWB to right heel in a surgical shoe Podiatry will continue to follow <Jose Raymond - Last Filed: 06/30/17 10:36> Objective - Vital Signs/Intake and Output Vital Signs (last 24 hours): Temp Pulse Resp BP Pulse Ox 98.2 F 100 H 18 133/80 100 06/30/17 08:18 06/30/17 08:46 06/30/17 08:18 06/30/17 08:46 06/30/17 08:18 Intake and Output: 06/30/17 06/30/17 06:59 18:59 Intake Total 1320 Balance 1320 - Medications Medications: Current Medications Acetaminophen (Tylenol 325mg Tab) 650 mg PO Q6H PRN PRN Reason: Fever >100.4 F Last Admin: 06/27/17 19:06 Dose: 650 mg Collagenase (Santyl) 0 gm TOP DAILY [facility] Last Admin: 06/29/17 17:36 Dose: 1 applic Cyanocobalamin (Vitamin B12 1000 Mcg Tab) 500 mcg PO DAILY [facility] Last Admin: 06/29/17 09:27 Dose: 500 mcg Dextrose (Dextrose 50% Inj) 25 ml IVP ONCE PRN PRN Reason: Hypoglycemia Ferrous Sulfate (Feosol) 324 mg PO TID [facility] Last Admin: 06/29/17 17:39 Dose: 324 mg Folic Acid (Folic Acid) 1 mg PO DAILY [facility] Last Admin: 06/29/17 09:27 Dose: 1 mg Meropenem 250 mg/ Sodium (Chloride) 100 mls @ 100 mls/hr IVPB Q12 [facility] PRN Reason: Protocol Stop: 07/06/17 10:01 Last Admin: 06/29/17 22:16 Dose: 100 mls/hr Sodium Chloride (Sodium Chloride 0.45%) 1,000 mls @ 100 mls/hr IV .Q10H [facility] Last Admin: 06/30/17 08:47 Dose: 100 mls/hr Insulin Human Regular (Humulin R Low) 0 units SC ACHS [facility] PRN Reason: Protocol Last Admin: 06/30/17 08:30 Dose: Not Given Linezolid (Zyvox) 600 mg PO BID [facility] PRN Reason: Protocol Stop: 07/06/17 10:01 Last Admin: 06/29/17 17:39 Dose: 600 mg Metoprolol Succinate (Toprol Xl) 25 mg PO BRK [facility] Last Admin: 06/30/17 08:46 Dose: 25 mg Multivitamins/Minerals (Therapeutic-M Tab) 1 tab PO 0800 [facility] Last Admin: 06/30/17 08:46 Dose: 1 tab Mupirocin (Bactroban Ointment) 0.5 gm TOP BID [facility] Last Admin: 06/29/17 17:35 Dose: 1 applic Pantoprazole Sodium (Protonix Ec Tab) 40 mg PO 0600 [facility] Last Admin: 06/30/17 05:31 Dose: 40 mg Sodium Bicarbonate (Sodium Bicarbonate Tab) 1,300 mg PO QID [facility] Last Admin: 06/30/17 04:56 Dose: 1,300 mg - Labs Labs: 06/30/17 05:20 06/30/17 05:20 PT 14.7 SECONDS (9.4-12.5) H 06/26/17 16:01 INR 1.28 (0.93-1.08) H 06/26/17 16:01 APTT 33.9 Seconds (25.1-36.5) 06/26/17 16:01 Attending/Attestation - Attestation I have personally seen and examined this patient.: Yes I have fully participated in the care of the patient.: Yes I have reviewed all pertinent clinical information, including history, physical exam and plan: Yes
[2017-06-30] MEDS ORDERED: Potassium Chloride 20 mEq ER Tab PO ONE (10:29)
--- NOTE | 2017-06-30 10:31 | CP.PCM.PN ---
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 Renal function improving bp well controlled continue na bicarb cont iron and MVI supplements. will give 20 po k dose of ananesp 06/27/17, s/p PRBC transfusion continue with IVF as 0.45% ns S: seen and examined, yane yesterday feels ok today General Appearance: Comfortable, in no acute respiratory distress, co- operative. thin built. Vitals reviewed and noted Head; Atraumatic, normocephalic ENT: no ulcers no thrush. Tongue is midline. Oropharynx: no rash or ulcers. Hard of hearing. Uses hearing aid. EYES: Pupils are equal, round and reactive to light accommodation. Eye muscles and extraocular movement intact. Sclera is anicteric. Neck; supple no lymphadenopathy, no thyromegaly or bruit Lungs: Normal respiratory rate/effort. Breath sounds bilateral equal and clear Heart: Increased rate. s1s2 normal. No rub or gallop. Extremities: no edema with wound dressed at feet. No varicose veins. Hand osteoarthritic deformities +. Neurological: Patient is alert, awake and oriented to person, place and time. No focal deficit. Strength bilateral appropriate and equal Skin: Warm and dry. Normal turgor. Palpitation: Normal elasticity for age. upper torso/face appears flushed/erythematous Abdomen: Abdomen is soft. Bowel sounds +. There is no abdominal tenderness, no guarding/rigidity or organomegaly Psych: normal insight and normal affect/mood MSK: no joint tenderness or swelling. hands swelling noted : kidney or bladder not palpable Labs/imaging reviewed. Past medical history, past surgical history, family history, social history, allergy reviewed and noted as below Family hx: no hx of CKD. Rest non-contributory Work up: 09/13/2016: GN serologies all negative, scleroderma work up neg, SPEP/LUDY neg Renal sono: b/l cortical atrophy. Small 1 cm Rt kidney simple cyst. Objective - Vital Signs/Intake and Output Vital Signs (last 24 hours): Temp Pulse Resp BP Pulse Ox 98.2 F 100 H 18 133/80 100 06/30/17 08:18 06/30/17 08:46 06/30/17 08:18 06/30/17 08:46 06/30/17 08:18 Intake and Output: 06/30/17 06/30/17 06:59 18:59 Intake Total 1320 Balance 1320 - Medications Medications: Current Medications Acetaminophen (Tylenol 325mg Tab) 650 mg PO Q6H PRN PRN Reason: Fever >100.4 F Last Admin: 06/27/17 19:06 Dose: 650 mg Collagenase (Santyl) 0 gm TOP DAILY [facility] Last Admin: 06/29/17 17:36 Dose: 1 applic Cyanocobalamin (Vitamin B12 1000 Mcg Tab) 500 mcg PO DAILY [facility] Last Admin: 06/29/17 09:27 Dose: 500 mcg Dextrose (Dextrose 50% Inj) 25 ml IVP ONCE PRN PRN Reason: Hypoglycemia Ferrous Sulfate (Feosol) 324 mg PO TID [facility] Last Admin: 06/29/17 17:39 Dose: 324 mg Folic Acid (Folic Acid) 1 mg PO DAILY [facility] Last Admin: 06/29/17 09:27 Dose: 1 mg Meropenem 250 mg/ Sodium (Chloride) 100 mls @ 100 mls/hr IVPB Q12 [facility] PRN Reason: Protocol Stop: 07/06/17 10:01 Last Admin: 06/29/17 22:16 Dose: 100 mls/hr Sodium Chloride (Sodium Chloride 0.45%) 1,000 mls @ 100 mls/hr IV .Q10H [facility] Last Admin: 06/30/17 08:47 Dose: 100 mls/hr Insulin Human Regular (Humulin R Low) 0 units SC ACHS [facility] PRN Reason: Protocol Last Admin: 06/30/17 08:30 Dose: Not Given Linezolid (Zyvox) 600 mg PO BID [facility] PRN Reason: Protocol Stop: 07/06/17 10:01 Last Admin: 06/29/17 17:39 Dose: 600 mg Metoprolol Succinate (Toprol Xl) 25 mg PO BRK [facility] Last Admin: 06/30/17 08:46 Dose: 25 mg Multivitamins/Minerals (Therapeutic-M Tab) 1 tab PO 0800 [facility] Last Admin: 06/30/17 08:46 Dose: 1 tab Mupirocin (Bactroban Ointment) 0.5 gm TOP BID [facility] Last Admin: 06/29/17 17:35 Dose: 1 applic Pantoprazole Sodium (Protonix Ec Tab) 40 mg PO 0600 [facility] Last Admin: 06/30/17 05:31 Dose: 40 mg Sodium Bicarbonate (Sodium Bicarbonate Tab) 1,300 mg PO QID [facility] Last Admin: 06/30/17 04:56 Dose: 1,300 mg - Labs Labs: 06/30/17 05:20 06/30/17 05:20 PT 14.7 SECONDS (9.4-12.5) H 06/26/17 16:01 INR 1.28 (0.93-1.08) H 06/26/17 16:01 APTT 33.9 Seconds (25.1-36.5) 06/26/17 16:01
--- NOTE | 2017-06-30 10:48 | CP.PCM.PN ---
<Natanael Allison - Last Filed: 06/30/17 10:32> Subjective - Date & Time of Evaluation Date of Evaluation: 06/30/17 Time of Evaluation: 10:32 - Subjective Subjective: Patient seen and examined this AM. No acute events overnight. Patient denies complaints. Feeling better. Objective - Vital Signs/Intake and Output Vital Signs (last 24 hours): Temp Pulse Resp BP Pulse Ox 98.2 F 100 H 18 133/80 100 06/30/17 08:18 06/30/17 08:46 06/30/17 08:18 06/30/17 08:46 06/30/17 08:18 Intake and Output: 06/30/17 06/30/17 06:59 18:59 Intake Total 1320 Balance 1320 - Medications Medications: Current Medications Acetaminophen (Tylenol 325mg Tab) 650 mg PO Q6H PRN PRN Reason: Fever >100.4 F Last Admin: 06/27/17 19:06 Dose: 650 mg Collagenase (Santyl) 0 gm TOP DAILY [facility] Last Admin: 06/29/17 17:36 Dose: 1 applic Cyanocobalamin (Vitamin B12 1000 Mcg Tab) 500 mcg PO DAILY [facility] Last Admin: 06/29/17 09:27 Dose: 500 mcg Dextrose (Dextrose 50% Inj) 25 ml IVP ONCE PRN PRN Reason: Hypoglycemia Ferrous Sulfate (Feosol) 324 mg PO TID [facility] Last Admin: 06/29/17 17:39 Dose: 324 mg Folic Acid (Folic Acid) 1 mg PO DAILY [facility] Last Admin: 06/29/17 09:27 Dose: 1 mg Meropenem 250 mg/ Sodium (Chloride) 100 mls @ 100 mls/hr IVPB Q12 [facility] PRN Reason: Protocol Stop: 07/06/17 10:01 Last Admin: 06/29/17 22:16 Dose: 100 mls/hr Sodium Chloride (Sodium Chloride 0.45%) 1,000 mls @ 100 mls/hr IV .Q10H [facility] Last Admin: 06/30/17 08:47 Dose: 100 mls/hr Insulin Human Regular (Humulin R Low) 0 units SC ACHS [facility] PRN Reason: Protocol Last Admin: 06/30/17 08:30 Dose: Not Given Linezolid (Zyvox) 600 mg PO BID [facility] PRN Reason: Protocol Stop: 07/06/17 10:01 Last Admin: 06/29/17 17:39 Dose: 600 mg Metoprolol Succinate (Toprol Xl) 25 mg PO BRK [facility] Last Admin: 06/30/17 08:46 Dose: 25 mg Multivitamins/Minerals (Therapeutic-M Tab) 1 tab PO 0800 [facility] Last Admin: 06/30/17 08:46 Dose: 1 tab Mupirocin (Bactroban Ointment) 0.5 gm TOP BID [facility] Last Admin: 06/29/17 17:35 Dose: 1 applic Pantoprazole Sodium (Protonix Ec Tab) 40 mg PO 0600 [facility] Last Admin: 06/30/17 05:31 Dose: 40 mg Sodium Bicarbonate (Sodium Bicarbonate Tab) 1,300 mg PO QID [facility] Last Admin: 06/30/17 04:56 Dose: 1,300 mg - Labs Labs: 06/30/17 05:20 06/30/17 05:20 PT 14.7 SECONDS (9.4-12.5) H 06/26/17 16:01 INR 1.28 (0.93-1.08) H 06/26/17 16:01 APTT 33.9 Seconds (25.1-36.5) 06/26/17 16:01 - Constitutional Appears: No Acute Distress - Head Exam Head Exam: ATRAUMATIC, NORMAL INSPECTION, NORMOCEPHALIC - Eye Exam Eye Exam: EOMI, PERRL - ENT Exam Additional comments: poor dentition - Respiratory Exam Respiratory Exam: Clear to Ausculation Bilateral, NORMAL BREATHING PATTERN. absent: Rhonchi, Wheezes - Cardiovascular Exam Cardiovascular Exam: Tachycardia, REGULAR RHYTHM, +S1, +S2 - GI/Abdominal Exam GI & Abdominal Exam: Soft, Normal Bowel Sounds. absent: Tenderness - Extremities Exam Extremities Exam: absent: Calf Tenderness Additional comments: left foot with multipodus boot on - Neurological Exam Neurological Exam: Alert, Awake, Oriented x3 - Psychiatric Exam Psychiatric exam: Normal Affect, Normal Mood - Skin Skin Exam: Dry, Warm Additional comments: Right lateral foot wound measuring approx 2.5 cm x 2.5 cm x 0.2 cm, wound base is mainly fibrotic with hyperkeratotic tissue in the wound bed, no granular tissue noted, approx. Wound measuring approx 1.5 cm x 1.0 cm x 0.2 cm noted on the anterior lateral aspect of the left ankle with another small wound distal medial to the ankle wound, wound base is mainly fibrotic with hyperkeratotic tissue in the wound bed Assessment and Plan - Assessment and Plan (Free Text) Assessment: 61 year old female with history of PVD, CKD, HTN, iron deficiency anemia who initially presented to hospital with complaint of non-healing RLE ulceration. Patient found to be anemic likely secondary to ACD vs. Iron deficiency anemia, FREDY likely secondary to dehydration, and UTI. Patient with gastric hyperplastic polyp s/p clipping with GI. Creatinine function continues to improve, nephro following. Plan: Cellulitis vs. OM of right foot Details: - Nonhealing right foot ulcer likely from poor vascular disease, - On admission febrile w/out elevation WBC - Right foot xray: negative for acute fractures or changes concerning for OM - Cath done yesterday, f/u report - Wound culture growing light MRSA and heavy Group B strep - MRI having to be held off for seven days due to clip placement Plan: - ID consulted, f/u recs - Percocet for pain - Podiatry consulted, f/u recs - Merropenema and xyvox for abx - Bone scan of both feet, f/u report, if no OM FREDY Details: - etiology: dehydration vs. infection - Nephrology consulted, following - Cr showing improvement - May be coming to baseline Plan: - IVF - F/u nephro recs UTI Details: - UA positive for leuk est, nitrates - ID consulted, Nephro consulted - Urine culture growin e.coli Plan: - Continue current antibiotics - ID following, f/u recs Anemia Deatils: - Likely etiology anemia of chronic disease with iron deficiency anemia - H/H low on admission ~ 6.7 (baseline 11) - s/p 2 transfusions pRBC - H/H stable - Retic count 1.6 Plan: - H/H stable, monitor at this point - Gi consult for investigation of etiology, f/u EGD and colonoscopy - EGD showing large erythematous hyperplastic polyp in the prepyloric reegion , gastritis, 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 DVT ppx: SCDs GI ppx: Protonix Case and plan discussed with attending <Chaparro Alonzo - Last Filed: 06/30/17 14:21> Objective - Vital Signs/Intake and Output Vital Signs (last 24 hours): Temp Pulse Resp BP Pulse Ox 98.2 F 100 H 18 133/80 100 06/30/17 08:18 06/30/17 08:46 06/30/17 08:18 06/30/17 08:46 06/30/17 08:18 Intake and Output: 06/30/17 06/30/17 06:59 18:59 Intake Total 1320 Balance 1320 - Medications Medications: Current Medications Acetaminophen (Tylenol 325mg Tab) 650 mg PO Q6H PRN PRN Reason: Fever >100.4 F Last Admin: 06/27/17 19:06 Dose: 650 mg Collagenase (Santyl) 0 gm TOP DAILY [facility] Last Admin: 06/30/17 11:49 Dose: 1 applic Cyanocobalamin (Vitamin B12 1000 Mcg Tab) 500 mcg PO DAILY [facility] Last Admin: 06/30/17 12:04 Dose: 500 mcg Dextrose (Dextrose 50% Inj) 25 ml IVP ONCE PRN PRN Reason: Hypoglycemia Ferrous Sulfate (Feosol) 324 mg PO TID [facility] Last Admin: 06/30/17 11:00 Dose: 324 mg Folic Acid (Folic Acid) 1 mg PO DAILY [facility] Last Admin: 06/30/17 11:00 Dose: 1 mg Meropenem 250 mg/ Sodium (Chloride) 100 mls @ 100 mls/hr IVPB Q12 [facility] PRN Reason: Protocol Stop: 07/06/17 10:01 Last Admin: 06/30/17 11:00 Dose: 100 mls/hr Sodium Chloride (Sodium Chloride 0.45%) 1,000 mls @ 100 mls/hr IV .Q10H [facility] Last Admin: 06/30/17 08:47 Dose: 100 mls/hr Insulin Human Regular (Humulin R Low) 0 units SC ACHS [facility] PRN Reason: Protocol Last Admin: 06/30/17 11:57 Dose: 2 units Linezolid (Zyvox) 600 mg PO BID [facility] PRN Reason: Protocol Stop: 07/06/17 10:01 Last Admin: 06/30/17 12:03 Dose: 600 mg Metoprolol Succinate (Toprol Xl) 25 mg PO BRK [facility] Last Admin: 06/30/17 08:46 Dose: 25 mg Multivitamins/Minerals (Therapeutic-M Tab) 1 tab PO 0800 [facility] Last Admin: 06/30/17 08:46 Dose: 1 tab Mupirocin (Bactroban Ointment) 0.5 gm TOP BID [facility] Last Admin: 06/30/17 11:50 Dose: 1 applic Pantoprazole Sodium (Protonix Ec Tab) 40 mg PO 0600 [facility] Last Admin: 06/30/17 05:31 Dose: 40 mg Sodium Bicarbonate (Sodium Bicarbonate Tab) 1,300 mg PO QID [facility] Last Admin: 06/30/17 12:03 Dose: 1,300 mg - Labs Labs: 06/30/17 05:20 06/30/17 05:20 PT 14.7 SECONDS (9.4-12.5) H 06/26/17 16:01 INR 1.28 (0.93-1.08) H 06/26/17 16:01 APTT 33.9 Seconds (25.1-36.5) 06/26/17 16:01 Attending/Attestation - Attestation I have personally seen and examined this patient.: Yes I have fully participated in the care of the patient.: Yes I have reviewed all pertinent clinical information, including history, physical exam and plan: Yes Notes (Text): 06/30/17 14:20 Medical record note made by the resident after discussion with my direction and input after the patient was personally seen and examined by me. I have reviewed the chart and agree that the record accurately reflects by personal performance of the history, physical exam, data review, and medical decision-making, in the course for the patient. I have also personally directed the plan of care. 61 year old female with PMH of PVD, stage III CKD, HTN, iron deficiency anemia was admitted with sepsis , etiology UTI/infected heal ulcer , worsening anemia , SP 2 units of PRBC and acute on chronic renal failure.Patient urine cultures are growing gram negative edna ( E coli), wound cultures are growing MRSA and group B hemolytic strep, on antibiotics as per ID.Blood cultures are negative for any growth.Bone scan results are pending.If no osteomylitis antibiotics can be changed to oral. 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 Patient creatinin is improving, has mild hypernatremia.Nephrology is following Management plan was discussed in detail with patient. Education was provided.
[2017-06-30] MEDS: Collagenase 250 Units/gm Ointment(30 gm) TOP SCH (11:49)
[2017-06-30 15:10] LABS: CALCIUM 8.1 mg/dL (8.4-10.5)
--- NOTE | 2017-06-30 21:43 | PN ---
DATE: 06/30/2017 SUBJECTIVE: The patient is in bed, no acute distress. OBJECTIVE: VITAL SIGNS: Temperature is 98, blood pressure is 130/80, respiratory rate of 20, heart rate of 160. HEENT: Examination of HEENT is unremarkable. NECK: Supple. LUNGS: Have decreased breath sounds. HEART: Normal S1, S2. ABDOMEN: Soft. LABORATORY EXAMINATION: Reveals a white count of 6.1, hemoglobin of 9, platelets of 281. BUN of 14, creatinine of 1.5. Microbiology reveals E. coli in the urine, group B strep and MRSA in the right foot, E. coli in the urine is relatively sensitive. Review of orders reveals the patient to be on meropenem. ASSESSMENT AND PLAN: This is a 61-year-old female who was seen early this morning, room 560, bed 2 with severe sepsis due to right foot cellulitis with group B strep and methicillin-resistant Staphylococcus aureus; rule out acute on chronic osteomyelitis; history of partial resection; history of acute osteomyelitis of the left foot; also with gram-negative edna in the urine, currently on Zyvox and meropenem. We will follow with you. Carroll Castellano MD
[2017-07-01 00:46] LABS: PH,URINE 7.5 (4.7-8.0); URINE BILIRUBIN NEGATIVE (NEGATIVE); URINE BLOOD TRACE-INTACT (NEGATIVE); URINE GLUCOSE (UA) 250 mg/dL (NEGATIVE); URINE LEUKOCYTE ESTERASE MODERATE Leu/uL (NEGATIVE); URINE PROTEIN NEGATIVE mg/dL (<30 mg/dL); URINE UROBILINOGEN 0.2 E.U./dL (<1 E.U./dL)
[2017-07-01 00:48] LABS: URINE COLOR YELLOW (YELLOW)
[2017-07-01 00:49] LABS: URINE APPEARANCE SL CLOUDY (CLEAR)
[2017-07-01 01:04] LABS: URINE BACTERIA FEW (NEG); URINE EPITHELIAL CELLS 0 - 2 /hpf (0-5)
[2017-07-01 01:05] LABS: URINE RBC 0 - 2 /hpf (0-2)
[2017-07-01] MEDS: Pantoprazole 40 mg EC Tab PO SCH (06:12)
[2017-07-01 07:00] LABS: BASO # 0.01 K/mm3 (0.0-2.0); BASO % 0.1 % (0.0-3.0); EOS # 0.4 (0.0-0.7); EOS % 6.3 % (1.5-5.0); GRAN # 4.44 (1.4-6.5); HEMOGLOBIN 9.6 g/dL (12.0-16.0); LYMPH # 1.4 (1.2-3.4); MEAN CORPUSCULAR HEMOGLOBIN 29.6 pg (25.0-35.0); MEAN CORPUSCULAR HGB CONC 32.2 g/dl (31.0-37.0); MEAN PLATELET VOLUME 9.2 fl (7.0-11.0); MONO # 0.7 (0.1-0.6); MONO % 9.6 % (1.0-6.0); RBC 3.24 10^6/uL (3.5-6.1); RED CELL DISTRIBUTION WIDTH 15.2 % (11.5-14.5)
[2017-07-01 07:37] LABS: ALB/GLOB RATIO 0.9 (1.1-1.8); CALCIUM 8.7 mg/dL (8.4-10.5)
[2017-07-01] MEDS: Insulin Reg-LOW-Coverage SC SCH ×3 (08:36→17:43)
[2017-07-01] MEDS: Multivitamin With Minerals Tab PO SCH (08:36)
[2017-07-01] MEDS: Metoprolol Succinate 25 mg XL Tab PO SCH (08:37)
[2017-07-01] MEDS: Collagenase 250 Units/gm Ointment(30 gm) TOP SCH (10:08)
--- NOTE | 2017-07-01 11:44 | CP.PCM.PN ---
<Natanael Allison - Last Filed: 07/01/17 11:38> Subjective - Date & Time of Evaluation Date of Evaluation: 07/01/17 Time of Evaluation: 11:39 - Subjective Subjective: Patient seen and evaluated this AM. No acute events reported overnight. Patient reports some pain/trouble swallowing for the past 12-24 hours. Patient denies oral ulcers, oral thrush, pain with chewing, chest pain, shortness of breath, abdominal pain, nausea, vomiting, fever, chills. Objective - Vital Signs/Intake and Output Vital Signs (last 24 hours): Temp Pulse Resp BP Pulse Ox 98.8 F 77 18 127/75 98 07/01/17 08:25 07/01/17 08:37 07/01/17 08:25 07/01/17 08:37 07/01/17 08:25 Intake and Output: 07/01/17 07/01/17 06:59 18:59 Intake Total 120 Output Total 600 Balance -480 - Medications Medications: Current Medications Acetaminophen (Tylenol 325mg Tab) 650 mg PO Q6H PRN PRN Reason: Fever >100.4 F Last Admin: 06/27/17 19:06 Dose: 650 mg Collagenase (Santyl) 0 gm TOP DAILY [facility] Last Admin: 07/01/17 10:08 Dose: 1 applic Cyanocobalamin (Vitamin B12 1000 Mcg Tab) 500 mcg PO DAILY [facility] Last Admin: 07/01/17 10:06 Dose: 500 mcg Dextrose (Dextrose 50% Inj) 25 ml IVP ONCE PRN PRN Reason: Hypoglycemia Ferrous Sulfate (Feosol) 324 mg PO TID [facility] Last Admin: 07/01/17 10:07 Dose: 324 mg Folic Acid (Folic Acid) 1 mg PO DAILY [facility] Last Admin: 07/01/17 10:07 Dose: 1 mg Meropenem 250 mg/ Sodium (Chloride) 100 mls @ 100 mls/hr IVPB Q12 [facility] PRN Reason: Protocol Stop: 07/06/17 10:01 Last Admin: 07/01/17 10:07 Dose: 100 mls/hr Sodium Chloride (Sodium Chloride 0.45%) 1,000 mls @ 100 mls/hr IV .Q10H [facility] Last Admin: 06/30/17 08:47 Dose: 100 mls/hr Insulin Human Regular (Humulin R Low) 0 units SC ACHS [facility] PRN Reason: Protocol Last Admin: 07/01/17 08:36 Dose: 1 units Linezolid (Zyvox) 600 mg PO BID [facility] PRN Reason: Protocol Stop: 07/06/17 10:01 Last Admin: 07/01/17 10:06 Dose: 600 mg Metoprolol Succinate (Toprol Xl) 25 mg PO BRK [facility] Last Admin: 07/01/17 08:37 Dose: 25 mg Multivitamins/Minerals (Therapeutic-M Tab) 1 tab PO 0800 [facility] Last Admin: 07/01/17 08:36 Dose: 1 tab Mupirocin (Bactroban Ointment) 0.5 gm TOP BID [facility] Last Admin: 07/01/17 10:08 Dose: 1 applic Pantoprazole Sodium (Protonix Ec Tab) 40 mg PO 0600 [facility] Last Admin: 07/01/17 06:12 Dose: 40 mg Sodium Bicarbonate (Sodium Bicarbonate Tab) 1,300 mg PO QID [facility] Last Admin: 07/01/17 10:07 Dose: 1,300 mg - Labs Labs: 07/01/17 06:30 07/01/17 06:30 PT 14.7 SECONDS (9.4-12.5) H 06/26/17 16:01 INR 1.28 (0.93-1.08) H 06/26/17 16:01 APTT 33.9 Seconds (25.1-36.5) 06/26/17 16:01 - Constitutional Appears: Non-toxic - Head Exam Head Exam: ATRAUMATIC, NORMAL INSPECTION, NORMOCEPHALIC - Eye Exam Eye Exam: EOMI, PERRL - ENT Exam Additional comments: Poor dentition, No oral thrush appreciated - Respiratory Exam Respiratory Exam: Clear to Ausculation Bilateral, NORMAL BREATHING PATTERN. absent: Rales, Wheezes, Stridor - Cardiovascular Exam Cardiovascular Exam: REGULAR RHYTHM, +S1, +S2 - GI/Abdominal Exam GI & Abdominal Exam: Soft, Normal Bowel Sounds. absent: Guarding, Rigid, Tenderness - Extremities Exam Extremities Exam: absent: Calf Tenderness, Pedal Edema - Neurological Exam Neurological Exam: Alert, Awake, Oriented x3 Additional comments: motor and sensory grossly intact - Psychiatric Exam Psychiatric exam: Normal Affect, Normal Mood - Skin Skin Exam: Dry, Warm Assessment and Plan - Assessment and Plan (Free Text) Assessment: 61 year old female with history of PVD, CKD, HTN, iron deficiency anemia who initially presented to hospital with complaint of non-healing RLE ulceration. Patient found to be anemic likely secondary to ACD vs. Iron deficiency anemia, FREDY likely secondary to dehydration, and UTI. Patient with gastric hyperplastic polyp s/p clipping with GI. Creatinine function continues to improve, nephro following. Plan: Cellulitis vs. OM of right foot Details: - Nonhealing right foot ulcer likely from poor vascular disease, - On admission febrile w/out elevation WBC - Right foot xray: negative for acute fractures or changes concerning for OM - Wound culture growing light MRSA and heavy Group B strep - MRI having to be held off for seven days due to clip placement Plan: - ID consulted, f/u recs - Percocet for pain - Podiatry consulted, f/u recs - Merropenema and xyvox for abx - Bone scan of both feet, f/u report, if no OM then consider dc FREDY on CKD Details: - etiology: dehydration vs. infection - Nephrology consulted, following - Cr most likely close to baseline - May be coming to baseline Plan: - IVF - F/u nephro recs UTI Details: - UA positive for leuk est, nitrates - ID consulted, Nephro consulted - Urine culture growin e.coli Plan: - Continue current antibiotics - ID following, f/u recs Anemia Deatils: - Likely etiology anemia of chronic disease with iron deficiency anemia - H/H low on admission ~ 6.7 (baseline 11) - s/p 2 transfusions pRBC - H/H stable - Retic count 1.6 Plan: - H/H stable, monitor at this point - Gi consult for investigation of etiology, f/u EGD and colonoscopy - EGD showing large erythematous hyperplastic polyp in the prepyloric reegion , gastritis, 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 DVT ppx: SCDs GI ppx: Protonix Case and plan discussed with attending <Chaparro Alonzo - Last Filed: 07/01/17 16:51> Objective - Vital Signs/Intake and Output Vital Signs (last 24 hours): Temp Pulse Resp BP Pulse Ox 98.8 F 77 18 127/75 98 07/01/17 08:25 07/01/17 08:37 07/01/17 08:25 07/01/17 08:37 07/01/17 08:25 Intake and Output: 07/01/17 07/01/17 06:59 18:59 Intake Total 120 Output Total 600 Balance -480 - Medications Medications: Current Medications Acetaminophen (Tylenol 325mg Tab) 650 mg PO Q6H PRN PRN Reason: Fever >100.4 F Last Admin: 06/27/17 19:06 Dose: 650 mg Collagenase (Santyl) 0 gm TOP DAILY [facility] Last Admin: 07/01/17 10:08 Dose: 1 applic Cyanocobalamin (Vitamin B12 1000 Mcg Tab) 500 mcg PO DAILY [facility] Last Admin: 07/01/17 10:06 Dose: 500 mcg Dextrose (Dextrose 50% Inj) 25 ml IVP ONCE PRN PRN Reason: Hypoglycemia Ferrous Sulfate (Feosol) 324 mg PO TID [facility] Last Admin: 07/01/17 15:20 Dose: 324 mg Folic Acid (Folic Acid) 1 mg PO DAILY [facility] Last Admin: 07/01/17 10:07 Dose: 1 mg Meropenem 250 mg/ Sodium (Chloride) 100 mls @ 100 mls/hr IVPB Q12 [facility] PRN Reason: Protocol Stop: 07/06/17 10:01 Last Admin: 07/01/17 10:07 Dose: 100 mls/hr Sodium Chloride (Sodium Chloride 0.45%) 1,000 mls @ 100 mls/hr IV .Q10H [facility] Last Admin: 06/30/17 08:47 Dose: 100 mls/hr Insulin Human Regular (Humulin R Low) 0 units SC ACHS [facility] PRN Reason: Protocol Last Admin: 07/01/17 12:32 Dose: 1 units Linezolid (Zyvox) 600 mg PO BID [facility] PRN Reason: Protocol Stop: 07/06/17 10:01 Last Admin: 07/01/17 10:06 Dose: 600 mg Metoprolol Succinate (Toprol Xl) 25 mg PO BRK [facility] Last Admin: 07/01/17 08:37 Dose: 25 mg Multivitamins/Minerals (Therapeutic-M Tab) 1 tab PO 0800 [facility] Last Admin: 07/01/17 08:36 Dose: 1 tab Mupirocin (Bactroban Ointment) 0.5 gm TOP BID [facility] Last Admin: 07/01/17 10:08 Dose: 1 applic Pantoprazole Sodium (Protonix Ec Tab) 40 mg PO 0600 [facility] Last Admin: 07/01/17 06:12 Dose: 40 mg Sodium Bicarbonate (Sodium Bicarbonate Tab) 1,300 mg PO QID [facility] Last Admin: 07/01/17 15:20 Dose: 1,300 mg - Labs Labs: 07/01/17 06:30 07/01/17 06:30 PT 14.7 SECONDS (9.4-12.5) H 06/26/17 16:01 INR 1.28 (0.93-1.08) H 06/26/17 16:01 APTT 33.9 Seconds (25.1-36.5) 06/26/17 16:01 Attending/Attestation - Attestation I have personally seen and examined this patient.: Yes I have fully participated in the care of the patient.: Yes I have reviewed all pertinent clinical information, including history, physical exam and plan: Yes Notes (Text): 07/01/17 16:50 Medical record note made by the resident after discussion with my direction and input after the patient was personally seen and examined by me. I have reviewed the chart and agree that the record accurately reflects by personal performance of the history, physical exam, data review, and medical decision-making, in the course for the patient. I have also personally directed the plan of care. 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 Acute on chronic renal failure has resolved.Creatinin is at base line. Management plan was discussed in detail with patient. Education was provided.
--- NOTE | 2017-07-01 14:15 | CP.PCM.PN ---
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 Renal function remains stable bp well controlled continue na bicarb cont iron and MVI supplements. k improved dose of ananesp 06/27/17, s/p PRBC transfusion continue with IVF as 0.45% ns S: seen and examined, no complaints General Appearance: Comfortable, in no acute respiratory distress, co- operative. thin built. Vitals reviewed and noted Head; Atraumatic, normocephalic ENT: no ulcers no thrush. Tongue is midline. Oropharynx: no rash or ulcers. Hard of hearing. Uses hearing aid. EYES: Pupils are equal, round and reactive to light accommodation. Eye muscles and extraocular movement intact. Sclera is anicteric. Neck; supple no lymphadenopathy, no thyromegaly or bruit Lungs: Normal respiratory rate/effort. Breath sounds bilateral equal and clear Heart: Increased rate. s1s2 normal. No rub or gallop. Extremities: no edema with wound dressed at feet. No varicose veins. Hand osteoarthritic deformities +. Neurological: Patient is alert, awake and oriented to person, place and time. No focal deficit. Strength bilateral appropriate and equal Skin: Warm and dry. Normal turgor. Palpitation: Normal elasticity for age. upper torso/face appears flushed/erythematous Abdomen: Abdomen is soft. Bowel sounds +. There is no abdominal tenderness, no guarding/rigidity or organomegaly Psych: normal insight and normal affect/mood MSK: no joint tenderness or swelling. hands swelling noted : kidney or bladder not palpable Labs/imaging reviewed. Past medical history, past surgical history, family history, social history, allergy reviewed and noted as below Family hx: no hx of CKD. Rest non-contributory Objective - Vital Signs/Intake and Output Vital Signs (last 24 hours): Temp Pulse Resp BP Pulse Ox 98.8 F 77 18 127/75 98 07/01/17 08:25 07/01/17 08:37 07/01/17 08:25 07/01/17 08:37 07/01/17 08:25 Intake and Output: 07/01/17 07/01/17 06:59 18:59 Intake Total 120 Output Total 600 Balance -480 - Medications Medications: Current Medications Acetaminophen (Tylenol 325mg Tab) 650 mg PO Q6H PRN PRN Reason: Fever >100.4 F Last Admin: 06/27/17 19:06 Dose: 650 mg Collagenase (Santyl) 0 gm TOP DAILY [facility] Last Admin: 07/01/17 10:08 Dose: 1 applic Cyanocobalamin (Vitamin B12 1000 Mcg Tab) 500 mcg PO DAILY [facility] Last Admin: 07/01/17 10:06 Dose: 500 mcg Dextrose (Dextrose 50% Inj) 25 ml IVP ONCE PRN PRN Reason: Hypoglycemia Ferrous Sulfate (Feosol) 324 mg PO TID [facility] Last Admin: 07/01/17 10:07 Dose: 324 mg Folic Acid (Folic Acid) 1 mg PO DAILY [facility] Last Admin: 07/01/17 10:07 Dose: 1 mg Meropenem 250 mg/ Sodium (Chloride) 100 mls @ 100 mls/hr IVPB Q12 [facility] PRN Reason: Protocol Stop: 07/06/17 10:01 Last Admin: 07/01/17 10:07 Dose: 100 mls/hr Sodium Chloride (Sodium Chloride 0.45%) 1,000 mls @ 100 mls/hr IV .Q10H [facility] Last Admin: 06/30/17 08:47 Dose: 100 mls/hr Insulin Human Regular (Humulin R Low) 0 units SC ACHS [facility] PRN Reason: Protocol Last Admin: 07/01/17 12:32 Dose: 1 units Linezolid (Zyvox) 600 mg PO BID [facility] PRN Reason: Protocol Stop: 07/06/17 10:01 Last Admin: 07/01/17 10:06 Dose: 600 mg Metoprolol Succinate (Toprol Xl) 25 mg PO BRK [facility] Last Admin: 07/01/17 08:37 Dose: 25 mg Multivitamins/Minerals (Therapeutic-M Tab) 1 tab PO 0800 [facility] Last Admin: 07/01/17 08:36 Dose: 1 tab Mupirocin (Bactroban Ointment) 0.5 gm TOP BID [facility] Last Admin: 07/01/17 10:08 Dose: 1 applic Pantoprazole Sodium (Protonix Ec Tab) 40 mg PO 0600 [facility] Last Admin: 07/01/17 06:12 Dose: 40 mg Sodium Bicarbonate (Sodium Bicarbonate Tab) 1,300 mg PO QID [facility] Last Admin: 07/01/17 10:07 Dose: 1,300 mg - Labs Labs: 07/01/17 06:30 07/01/17 06:30 PT 14.7 SECONDS (9.4-12.5) H 06/26/17 16:01 INR 1.28 (0.93-1.08) H 06/26/17 16:01 APTT 33.9 Seconds (25.1-36.5) 06/26/17 16:01
--- NOTE | 2017-07-01 18:20 | CP.PCM.PN ---
Subjective - Date & Time of Evaluation Date of Evaluation: 07/01/17 Time of Evaluation: 18:20 - Subjective Subjective: Podiatry Consult note: Dr. Mattson/Dr. Raymond 61 year old female seen and evaluated at bedside for bilateral foot ulcerations. Patient resting in bed comfortably, NAD. NAEON. Offers no new complaints to bilateral lower extremities today; reports continued minimal pain to wound on the lateral aspect of her right foot. Multipodus boot present to RLE. Denies N/V/F/D/C/SOB/CP/CHAMBERS/dizziness. Objective - Vital Signs/Intake and Output Vital Signs (last 24 hours): Temp Pulse Resp BP Pulse Ox 98.8 F 77 18 127/75 98 07/01/17 08:25 07/01/17 08:37 07/01/17 08:25 07/01/17 08:37 07/01/17 08:25 Intake and Output: 07/01/17 07/01/17 06:59 18:59 Intake Total 120 Output Total 600 Balance -480 - Medications Medications: Current Medications Acetaminophen (Tylenol 325mg Tab) 650 mg PO Q6H PRN PRN Reason: Fever >100.4 F Last Admin: 06/27/17 19:06 Dose: 650 mg Collagenase (Santyl) 0 gm TOP DAILY [facility] Last Admin: 07/01/17 10:08 Dose: 1 applic Cyanocobalamin (Vitamin B12 1000 Mcg Tab) 500 mcg PO DAILY [facility] Last Admin: 07/01/17 10:06 Dose: 500 mcg Dextrose (Dextrose 50% Inj) 25 ml IVP ONCE PRN PRN Reason: Hypoglycemia Ferrous Sulfate (Feosol) 324 mg PO TID [facility] Last Admin: 07/01/17 17:43 Dose: 324 mg Folic Acid (Folic Acid) 1 mg PO DAILY [facility] Last Admin: 07/01/17 10:07 Dose: 1 mg Meropenem 250 mg/ Sodium (Chloride) 100 mls @ 100 mls/hr IVPB Q12 [facility] PRN Reason: Protocol Stop: 07/06/17 10:01 Last Admin: 07/01/17 10:07 Dose: 100 mls/hr Sodium Chloride (Sodium Chloride 0.45%) 1,000 mls @ 100 mls/hr IV .Q10H [facility] Last Admin: 06/30/17 08:47 Dose: 100 mls/hr Insulin Human Regular (Humulin R Low) 0 units SC ACHS [facility] PRN Reason: Protocol Last Admin: 07/01/17 17:43 Dose: 1 units Linezolid (Zyvox) 600 mg PO BID [facility] PRN Reason: Protocol Stop: 07/06/17 10:01 Last Admin: 07/01/17 17:44 Dose: 600 mg Metoprolol Succinate (Toprol Xl) 25 mg PO BRK [facility] Last Admin: 07/01/17 08:37 Dose: 25 mg Multivitamins/Minerals (Therapeutic-M Tab) 1 tab PO 0800 [facility] Last Admin: 07/01/17 08:36 Dose: 1 tab Mupirocin (Bactroban Ointment) 0.5 gm TOP BID [facility] Last Admin: 07/01/17 17:43 Dose: 1 applic Pantoprazole Sodium (Protonix Ec Tab) 40 mg PO 0600 [facility] Last Admin: 07/01/17 06:12 Dose: 40 mg Sodium Bicarbonate (Sodium Bicarbonate Tab) 1,300 mg PO QID [facility] Last Admin: 07/01/17 17:43 Dose: 1,300 mg - Labs Labs: 07/01/17 06:30 07/01/17 06:30 PT 14.7 SECONDS (9.4-12.5) H 06/26/17 16:01 INR 1.28 (0.93-1.08) H 06/26/17 16:01 APTT 33.9 Seconds (25.1-36.5) 06/26/17 16:01 - Constitutional Appears: Well, Non-toxic, No Acute Distress - Extremities Exam Additional comments: Lower extremity focused examination: Vasc: DP/PT pulses palpable 2/4 B/L. Temperature gradient warm to warm from proximal to distal. Cap refill time: < 3 sec to all digits, mild non-pitting edema noted on bilateral LE (R>L) Derm: wound measuring approx 2.5 cm x 2.5 cm x 0.2 cm noted on the lateral aspect of the right foot, wound base is mainly fibrotic with hyperkeratotic tissue in the wound bed, no granular tissue noted, approx. 2 cc of purulence drainage noted from the wound up on applying pressure, no malodor, periwound erythema present, no tunneling, no undermining; Wound measuring approx 1.5 cm x 1.0 cm x 0.2 cm noted on the anterior lateral aspect of the left ankle with another small wound distal medial to the ankle wound, wound base is mainly fibrotic with hyperkeratotic tissue in the wound bed, no granular tissue noted, no active drainage, no malodor, periwound erythema present, no tunneling, no undermining, no purulence Neuro: Protective sensation is grossly intact B/L Ortho: Mild tenderness to palpation of right foot wound. Left ankle ulceration mildly tender - Neurological Exam Neurological Exam: Alert, Awake, Oriented x3 - Psychiatric Exam Psychiatric exam: Normal Affect, Normal Mood Assessment and Plan - Assessment and Plan (Free Text) Assessment: 61 year old female patient with bilateral foot wounds with cellulitis, resolving Plan: Patient seen and evaluated Discussed with attending, Dr. Mattson Afebrile, WBC WNL 7.0 Right foot wound cultures: Group B strep, MRSA Continue IV abx - meropenem and linezolid Arterial duplex scan 03/29 - mildly abnormal CASSIDY Bilateral foot and ankle MRI ordered - unable to obtain F/u bone scan report Continue local wound care: -LLE saline cleanse, bactroban, optifoam -RLE saline cleanse, santyl, optifoam Awaiting multipodus boot - ordered for RLE Multipodus boots to be worn at all times while in bed f/u vascular consult Patient is allowed PWB to right heel in a surgical shoe Podiatry will continue to follow
--- NOTE | 2017-07-01 22:44 | PN ---
DATE: 07/01/2017 SUBJECTIVE: The patient is in bed, in no acute distress, nontoxic. PHYSICAL EXAMINATION: VITAL SIGNS: Temperature is 98, blood pressure is 127/70, respiratory rate of 18, heart rate of 101. HEENT: Unremarkable. NECK: Supple. LUNGS: Have decreased breath sounds. HEART: Normal S1, S2. ABDOMEN: Soft, nontender. LABORATORY DATA: Reveals a white count of 7, hemoglobin of 9, platelets of 269. Chemistries are noted, BUN of 13 and creatinine of 1.3. Microbiology is noted. E. coli in the urine and group B strep and MRSA in the right foot. ASSESSMENT AND PLAN: This is a 61-year-old female who was seen early this morning in room 560, bed 2 with severe sepsis, right foot cellulitis with group B streptococcus and methicillin resistant Staphylococcus aureus and acute on chronic osteomyelitis with history of partial resection, history of acute osteomyelitis of left foot. The patient also has Escherichia coli in the urine, currently on Zyvox and meropenem. Meropenem is active and Zyvox requires renewal, which I will do so. We will follow with you. Carroll Castellano MD
[2017-07-02] MEDS: Insulin Reg-LOW-Coverage SC SCH ×5 (01:38→21:42)
[2017-07-02] MEDS: Pantoprazole 40 mg EC Tab PO SCH (05:36)
[2017-07-02 08:03] LABS: BASO # 0.03 K/mm3 (0.0-2.0); BASO % 0.3 % (0.0-3.0); EOS # 0.5 (0.0-0.7); GRAN # 6.17 (1.4-6.5); GRAN % 64.3 % (50.0-68.0); HEMOGLOBIN 10.2 g/dL (12.0-16.0); LYMPH # 2.1 (1.2-3.4); LYMPH % 21.7 % (22.0-35.0); MEAN CORPUSCULAR HEMOGLOBIN 30.4 pg (25.0-35.0); MEAN PLATELET VOLUME 9.4 fl (7.0-11.0); MONO # 0.8 (0.1-0.6); MONO % 8.7 % (1.0-6.0); RBC 3.36 10^6/uL (3.5-6.1); RED CELL DISTRIBUTION WIDTH 15.2 % (11.5-14.5); WHITE BLOOD COUNT 9.6 10^3/ul (4.5-11.0)
[2017-07-02 08:12] VITALS: O2SAT 100
[2017-07-02 08:12] LABS: ALBUMIN 3.4 g/dL (3.0-4.8)
[2017-07-02] MEDS: Metoprolol Succinate 25 mg XL Tab PO SCH (08:26)
[2017-07-02] MEDS: Multivitamin With Minerals Tab PO SCH (08:26)
--- NOTE | 2017-07-02 10:41 | NM ---
PROCEDURE: Three-phase bone scan HISTORY: bone scan of both feet, eval for OM COMPARISON: 06/26/2017 radiographs right foot TECHNIQUE: Following administration of 22.4 miCu of Tc MDP multiplanar whole body images were obtained. FINDINGS: Flow component: Increased flow to the right calcaneus Blood pool component: Accumulation of radionuclide right calcaneus Delayed images at 3:00: Retention of radionuclide right calcaneus. Additional foci of abnormal increased uptake right forefoot and left ankle. Other findings: None. IMPRESSION: Positive 3 phase bone scan for acute osteomyelitis right calcaneus. The affected Anatomic portion of the calcaneus is adjacent to the talus.
[2017-07-02] MEDS: Collagenase 250 Units/gm Ointment(30 gm) TOP SCH (10:51)
[2017-07-02] MEDS: Sodium Chloride 0.45% 1,000 ML IV SCH (10:53)
[2017-07-02] MEDS ORDERED: Potassium Chloride 20 mEq ER Tab PO ONE (11:57)
[2017-07-02] MEDS ORDERED: Magnesium Sulfate 2 GM in Sodium Chloride 0.9% 100 ML IVPB ONE (13:47)
--- NOTE | 2017-07-02 14:25 | CP.PCM.PN ---
<Natanael Allison - Last Filed: 07/02/17 14:22> Subjective - Date & Time of Evaluation Date of Evaluation: 07/02/17 Time of Evaluation: 09:30 - Subjective Subjective: Patient seen and evaluated. No acute events overnight. Patient denies chest pain , shortness of breath, abdominal pain, nausea, vomiting, fever, chills. Objective - Vital Signs/Intake and Output Vital Signs (last 24 hours): Temp Pulse Resp BP Pulse Ox 97.9 F 97 H 18 145/100 H 100 07/02/17 08:11 07/02/17 08:26 07/02/17 08:11 07/02/17 08:26 07/02/17 08:11 Intake and Output: 07/02/17 07/02/17 06:59 18:59 Intake Total 120 Balance 120 - Medications Medications: Current Medications Acetaminophen (Tylenol 325mg Tab) 650 mg PO Q6H PRN PRN Reason: Fever >100.4 F Last Admin: 06/27/17 19:06 Dose: 650 mg Collagenase (Santyl) 0 gm TOP DAILY [facility] Last Admin: 07/02/17 10:51 Dose: 1 applic Cyanocobalamin (Vitamin B12 1000 Mcg Tab) 500 mcg PO DAILY [facility] Last Admin: 07/02/17 10:50 Dose: 500 mcg Dextrose (Dextrose 50% Inj) 25 ml IVP ONCE PRN PRN Reason: Hypoglycemia Ferrous Sulfate (Feosol) 324 mg PO TID [facility] Last Admin: 07/02/17 13:55 Dose: 324 mg Folic Acid (Folic Acid) 1 mg PO DAILY [facility] Last Admin: 07/02/17 10:50 Dose: 1 mg Meropenem 250 mg/ Sodium (Chloride) 100 mls @ 100 mls/hr IVPB Q12 [facility] PRN Reason: Protocol Stop: 07/06/17 10:01 Last Admin: 07/02/17 10:51 Dose: 100 mls/hr Sodium Chloride (Sodium Chloride 0.45%) 1,000 mls @ 100 mls/hr IV .Q10H [facility] Last Admin: 07/02/17 10:53 Dose: 100 mls/hr Magnesium Sulfate 2 gm/ Sodium (Chloride) 104 mls @ 102 mls/hr IVPB ONCE ONE Stop: 07/02/17 14:48 Insulin Human Regular (Humulin R Low) 0 units SC ACHS [facility] PRN Reason: Protocol Last Admin: 07/02/17 12:11 Dose: 2 units Linezolid (Zyvox) 600 mg PO BID [facility] PRN Reason: Protocol Stop: 07/06/17 10:01 Last Admin: 07/02/17 10:49 Dose: 600 mg Metoprolol Succinate (Toprol Xl) 25 mg PO BRK [facility] Last Admin: 07/02/17 08:26 Dose: 25 mg Multivitamins/Minerals (Therapeutic-M Tab) 1 tab PO 0800 [facility] Last Admin: 07/02/17 08:26 Dose: 1 tab Mupirocin (Bactroban Ointment) 0.5 gm TOP BID [facility] Last Admin: 07/02/17 10:49 Dose: 1 applic Nystatin (Nystop Topical Powder) 0 gm TOP BID [facility] Pantoprazole Sodium (Protonix Ec Tab) 40 mg PO 0600 [facility] Last Admin: 07/02/17 05:36 Dose: 40 mg Sodium Bicarbonate (Sodium Bicarbonate Tab) 1,300 mg PO QID [facility] Last Admin: 07/02/17 10:50 Dose: 1,300 mg - Labs Labs: 07/02/17 07:30 07/02/17 07:30 PT 14.7 SECONDS (9.4-12.5) H 06/26/17 16:01 INR 1.28 (0.93-1.08) H 06/26/17 16:01 APTT 33.9 Seconds (25.1-36.5) 06/26/17 16:01 - Constitutional Appears: Non-toxic - Head Exam Head Exam: ATRAUMATIC, NORMAL INSPECTION, NORMOCEPHALIC - Eye Exam Eye Exam: EOMI, PERRL - ENT Exam Additional comments: Poor dentation - Respiratory Exam Respiratory Exam: Clear to Ausculation Bilateral, NORMAL BREATHING PATTERN. absent: Rhonchi, Wheezes - Cardiovascular Exam Cardiovascular Exam: REGULAR RHYTHM, +S1, +S2 - GI/Abdominal Exam GI & Abdominal Exam: Soft, Normal Bowel Sounds. absent: Tenderness - Extremities Exam Additional comments: left foot with Assessment and Plan - Assessment and Plan (Free Text) Assessment: 61 year old female with history of PVD, CKD, HTN, iron deficiency anemia who initially presented to hospital with complaint of non-healing RLE ulceration. Patient found to be anemic likely secondary to ACD vs. Iron deficiency anemia, FREDY likely secondary to dehydration, and UTI. Patient with gastric hyperplastic polyp s/p clipping with GI. Patient bone scan showing OM of calcaneus. Plan: Cellulitis vs. 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 infection - Nephrology consulted, following - Cr most likely close to baseline Plan: - IVF - F/u nephro recs UTI Details: - UA positive for leuk est, nitrates - ID consulted, Nephro consulted - Urine culture growing e.coli Plan: - Continue current antibiotics - ID following, f/u recs Anemia Details: - Likely etiology anemia of chronic disease with iron deficiency anemia - H/H low on admission ~ 6.7 (baseline 11) - s/p 2 transfusions pRBC - H/H stable - Retic count 1.6 Plan: - H/H stable, monitor at this point - Gi consult for investigation of etiology, f/u EGD and colonoscopy - EGD showing large erythematous hyperplastic polyp in the prepyloric reegion , gastritis, 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 Skin breakdown on posterior lumbo sacral region - Nystatin powder to be applied to affected area BID DVT ppx: SCDs GI ppx: Protonix Case and plan discussed with attending <Luna Haque - Last Filed: 07/02/17 14:51> Objective - Vital Signs/Intake and Output Vital Signs (last 24 hours): Temp Pulse Resp BP Pulse Ox 97.9 F 97 H 18 145/100 H 100 07/02/17 08:11 07/02/17 08:26 07/02/17 08:11 07/02/17 08:26 07/02/17 08:11 Intake and Output: 07/02/17 07/02/17 06:59 18:59 Intake Total 120 Balance 120 - Medications Medications: Current Medications Acetaminophen (Tylenol 325mg Tab) 650 mg PO Q6H PRN PRN Reason: Fever >100.4 F Last Admin: 06/27/17 19:06 Dose: 650 mg Collagenase (Santyl) 0 gm TOP DAILY [facility] Last Admin: 07/02/17 10:51 Dose: 1 applic Cyanocobalamin (Vitamin B12 1000 Mcg Tab) 500 mcg PO DAILY [facility] Last Admin: 07/02/17 10:50 Dose: 500 mcg Dextrose (Dextrose 50% Inj) 25 ml IVP ONCE PRN PRN Reason: Hypoglycemia Ferrous Sulfate (Feosol) 324 mg PO TID [facility] Last Admin: 07/02/17 13:55 Dose: 324 mg Folic Acid (Folic Acid) 1 mg PO DAILY [facility] Last Admin: 07/02/17 10:50 Dose: 1 mg Meropenem 250 mg/ Sodium (Chloride) 100 mls @ 100 mls/hr IVPB Q12 [facility] PRN Reason: Protocol Stop: 07/06/17 10:01 Last Admin: 07/02/17 10:51 Dose: 100 mls/hr Sodium Chloride (Sodium Chloride 0.45%) 1,000 mls @ 100 mls/hr IV .Q10H [facility] Last Admin: 07/02/17 10:53 Dose: 100 mls/hr Magnesium Sulfate 2 gm/ Sodium (Chloride) 104 mls @ 102 mls/hr IVPB ONCE ONE Stop: 07/02/17 14:48 Insulin Human Regular (Humulin R Low) 0 units SC ACHS [facility] PRN Reason: Protocol Last Admin: 07/02/17 12:11 Dose: 2 units Linezolid (Zyvox) 600 mg PO BID [facility] PRN Reason: Protocol Stop: 07/06/17 10:01 Last Admin: 07/02/17 10:49 Dose: 600 mg Metoprolol Succinate (Toprol Xl) 25 mg PO BRK [facility] Last Admin: 07/02/17 08:26 Dose: 25 mg Multivitamins/Minerals (Therapeutic-M Tab) 1 tab PO 0800 [facility] Last Admin: 07/02/17 08:26 Dose: 1 tab Mupirocin (Bactroban Ointment) 0.5 gm TOP BID [facility] Last Admin: 07/02/17 10:49 Dose: 1 applic Nystatin (Nystop Topical Powder) 0 gm TOP BID [facility] Pantoprazole Sodium (Protonix Ec Tab) 40 mg PO 0600 [facility] Last Admin: 07/02/17 05:36 Dose: 40 mg Sodium Bicarbonate (Sodium Bicarbonate Tab) 1,300 mg PO QID [facility] Last Admin: 07/02/17 10:50 Dose: 1,300 mg - Labs Labs: 07/02/17 07:30 07/02/17 07:30 PT 14.7 SECONDS (9.4-12.5) H 06/26/17 16:01 INR 1.28 (0.93-1.08) H 06/26/17 16:01 APTT 33.9 Seconds (25.1-36.5) 06/26/17 16:01 Attending/Attestation - Attestation I have personally seen and examined this patient.: Yes I have fully participated in the care of the patient.: Yes I have reviewed all pertinent clinical information, including history, physical exam and plan: Yes Notes (Text): 07/02/17 14:47 61 year old female with past medical history of PVD, CKD, hypertension and anemia who presented with sepsis secondary to infected heel ulcer and E Coli UTI. She is on iv antibiotics. ID and podiatry are following the patient. She had bone scan today which showed acute osteomyelitis. Her anemia has been stable s/p 2 units prbc transfusion. GI evaluation was appreciated and she is s/p EGD which showed Chapito's esophagus, gastritis and gastric polyp s/p polypectomy. Nephrology is also following for acute on chronic kidney disease which is stable. Luna Haque MD Hospitalist.
--- NOTE | 2017-07-02 16:05 | CP.PCM.PN ---
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 No ACEI/ARB due to FREDY and hyperkalemia in past. maintain hemodynamics stable. resume Toprol XL 25 mg/day to avoid BB withdrawal Monitor Input/Output, daily weights and renal function with basic metabolic panel resume Sodium bicarb 1300 mg qid, also on iron and MVI supplements. dose of ananesp 06/27/17, s/p PRBC transfusion continue with IVF as 0.45% saline pending urine Na/K/Cl to calculate UAG Dose meds/antibiotics for improved GFR. Avoid fleets enema/magnesium based laxatives. Avoid nephrotoxins/NSAIDs/ iodinated contrast (unless needed emergently) Glycemic control Further work up/management as per primary team Thanks for allowing me to participate in care of your patient. Will follow patient with you. Please call if any Qs. 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 now readmitted for Sepsis with anemia and FREDY renal consult for FREDY management. Denies chest pain, palpitation, shortness of breath, leg swelling. says foot pain better Has chronic loose stool 2-3 times/day but better now a days. ROS: pt denies any new complaints. no CP/SOB. no pain abdomen General Appearance: Comfortable, in no acute respiratory distress, co- operative. thin built. Vitals reviewed and noted Head; Atraumatic, normocephalic ENT: no ulcers no thrush. Tongue is midline. Oropharynx: no rash or ulcers. Hard of hearing. Uses hearing aid. EYES: Pupils are equal, round and reactive to light accommodation. Eye muscles and extraocular movement intact. Sclera is anicteric. Neck; supple no lymphadenopathy, no thyromegaly or bruit Lungs: Normal respiratory rate/effort. Breath sounds bilateral equal and clear Heart: Increased rate. s1s2 normal. No rub or gallop. Extremities: no edema with wound dressed at feet. No varicose veins. Hand osteoarthritic deformities +. Neurological: Patient is alert, awake and oriented to person, place and time. No focal deficit. Strength bilateral appropriate and equal Skin: Warm and dry. Normal turgor. Palpitation: Normal elasticity for age. Abdomen: Abdomen is soft. Bowel sounds +. There is no abdominal tenderness, no guarding/rigidity or organomegaly Psych: normal insight and normal affect/mood MSK: no joint tenderness or swelling. hands swelling noted : kidney or bladder not palpable Labs/imaging reviewed. Past medical history, past surgical history, family history, social history, allergy reviewed and noted as below Family hx: no hx of CKD. Rest non-contributory Work up: 09/13/2016: GN serologies all negative, scleroderma work up neg, SPEP/LUDY neg Renal sono: b/l cortical atrophy. Small 1 cm Rt kidney simple cyst. Objective - Vital Signs/Intake and Output Vital Signs (last 24 hours): Temp Pulse Resp BP Pulse Ox 98 F 90 18 154/74 H 100 07/02/17 14:00 07/02/17 14:00 07/02/17 14:00 07/02/17 14:00 07/02/17 14:00 Intake and Output: 07/02/17 07/02/17 06:59 18:59 Intake Total 120 480 Output Total 150 Balance 120 330 - Medications Medications: Current Medications Acetaminophen (Tylenol 325mg Tab) 650 mg PO Q6H PRN PRN Reason: Fever >100.4 F Last Admin: 06/27/17 19:06 Dose: 650 mg Collagenase (Santyl) 0 gm TOP DAILY [facility] Last Admin: 07/02/17 10:51 Dose: 1 applic Cyanocobalamin (Vitamin B12 1000 Mcg Tab) 500 mcg PO DAILY [facility] Last Admin: 07/02/17 10:50 Dose: 500 mcg Dextrose (Dextrose 50% Inj) 25 ml IVP ONCE PRN PRN Reason: Hypoglycemia Ferrous Sulfate (Feosol) 324 mg PO TID [facility] Last Admin: 07/02/17 13:55 Dose: 324 mg Folic Acid (Folic Acid) 1 mg PO DAILY [facility] Last Admin: 07/02/17 10:50 Dose: 1 mg Meropenem 250 mg/ Sodium (Chloride) 100 mls @ 100 mls/hr IVPB Q12 [facility] PRN Reason: Protocol Stop: 07/06/17 10:01 Last Admin: 07/02/17 10:51 Dose: 100 mls/hr Sodium Chloride (Sodium Chloride 0.45%) 1,000 mls @ 100 mls/hr IV .Q10H [facility] Last Admin: 07/02/17 10:53 Dose: 100 mls/hr Insulin Human Regular (Humulin R Low) 0 units SC ACHS [facility] PRN Reason: Protocol Last Admin: 07/02/17 12:11 Dose: 2 units Linezolid (Zyvox) 600 mg PO BID [facility] PRN Reason: Protocol Stop: 07/06/17 10:01 Last Admin: 07/02/17 10:49 Dose: 600 mg Metoprolol Succinate (Toprol Xl) 25 mg PO BRK [facility] Last Admin: 07/02/17 08:26 Dose: 25 mg Multivitamins/Minerals (Therapeutic-M Tab) 1 tab PO 0800 [facility] Last Admin: 07/02/17 08:26 Dose: 1 tab Mupirocin (Bactroban Ointment) 0.5 gm TOP BID [facility] Last Admin: 07/02/17 10:49 Dose: 1 applic Nystatin (Nystop Topical Powder) 0 gm TOP BID [facility] Pantoprazole Sodium (Protonix Ec Tab) 40 mg PO 0600 [facility] Last Admin: 07/02/17 05:36 Dose: 40 mg Sodium Bicarbonate (Sodium Bicarbonate Tab) 1,300 mg PO QID [facility] Last Admin: 07/02/17 10:50 Dose: 1,300 mg - Labs Labs: 07/02/17 07:30 07/02/17 07:30 PT 14.7 SECONDS (9.4-12.5) H 06/26/17 16:01 INR 1.28 (0.93-1.08) H 06/26/17 16: APTT 33.9 Seconds (25.1-36.5) 06/26/17 16:01
--- NOTE | 2017-07-02 16:43 | CP.PCM.PN ---
Subjective - Date & Time of Evaluation Date of Evaluation: 07/02/17 Time of Evaluation: 16:37 - Subjective Subjective: Podiatry Consult note: Dr. Mattson/Dr. Raymond 61 year old female seen and evaluated at bedside for bilateral foot ulcerations. Patient resting in bed comfortably, NAD. Reports continued minimal pain to wound on the lateral aspect of her right foot. Multipodus boot present to RLE. Denies N/V/F/D/C/SOB/CP/CHAMBERS/dizziness. No new pedal complains. Objective - Vital Signs/Intake and Output Vital Signs (last 24 hours): Temp Pulse Resp BP Pulse Ox 98 F 90 18 154/74 H 100 07/02/17 14:00 07/02/17 14:00 07/02/17 14:00 07/02/17 14:00 07/02/17 14:00 Intake and Output: 07/02/17 07/02/17 06:59 18:59 Intake Total 120 480 Output Total 150 Balance 120 330 - Medications Medications: Current Medications Acetaminophen (Tylenol 325mg Tab) 650 mg PO Q6H PRN PRN Reason: Fever >100.4 F Last Admin: 06/27/17 19:06 Dose: 650 mg Collagenase (Santyl) 0 gm TOP DAILY [facility] Last Admin: 07/02/17 10:51 Dose: 1 applic Cyanocobalamin (Vitamin B12 1000 Mcg Tab) 500 mcg PO DAILY [facility] Last Admin: 07/02/17 10:50 Dose: 500 mcg Dextrose (Dextrose 50% Inj) 25 ml IVP ONCE PRN PRN Reason: Hypoglycemia Ferrous Sulfate (Feosol) 324 mg PO TID [facility] Last Admin: 07/02/17 13:55 Dose: 324 mg Folic Acid (Folic Acid) 1 mg PO DAILY [facility] Last Admin: 07/02/17 10:50 Dose: 1 mg Meropenem 250 mg/ Sodium (Chloride) 100 mls @ 100 mls/hr IVPB Q12 [facility] PRN Reason: Protocol Stop: 07/06/17 10:01 Last Admin: 07/02/17 10:51 Dose: 100 mls/hr Sodium Chloride (Sodium Chloride 0.45%) 1,000 mls @ 100 mls/hr IV .Q10H [facility] Last Admin: 07/02/17 10:53 Dose: 100 mls/hr Insulin Human Regular (Humulin R Low) 0 units SC ACHS [facility] PRN Reason: Protocol Last Admin: 07/02/17 12:11 Dose: 2 units Linezolid (Zyvox) 600 mg PO BID [facility] PRN Reason: Protocol Stop: 07/06/17 10:01 Last Admin: 07/02/17 10:49 Dose: 600 mg Metoprolol Succinate (Toprol Xl) 25 mg PO BRK [facility] Last Admin: 07/02/17 08:26 Dose: 25 mg Multivitamins/Minerals (Therapeutic-M Tab) 1 tab PO 0800 [facility] Last Admin: 07/02/17 08:26 Dose: 1 tab Mupirocin (Bactroban Ointment) 0.5 gm TOP BID [facility] Last Admin: 07/02/17 10:49 Dose: 1 applic Nystatin (Nystop Topical Powder) 0 gm TOP BID [facility] Pantoprazole Sodium (Protonix Ec Tab) 40 mg PO 0600 [facility] Last Admin: 07/02/17 05:36 Dose: 40 mg Sodium Bicarbonate (Sodium Bicarbonate Tab) 1,300 mg PO QID [facility] Last Admin: 07/02/17 10:50 Dose: 1,300 mg - Labs Labs: 07/02/17 07:30 07/02/17 07:30 PT 14.7 SECONDS (9.4-12.5) H 06/26/17 16:01 INR 1.28 (0.93-1.08) H 06/26/17 16:01 APTT 33.9 Seconds (25.1-36.5) 06/26/17 16:01 - Constitutional Appears: Well, Non-toxic, No Acute Distress - Extremities Exam Additional comments: Lower extremity focused examination: Vasc: DP/PT pulses palpable 2/4 B/L. Temperature gradient warm to warm from proximal to distal. Cap refill time: < 3 sec to all digits, mild non-pitting edema noted on bilateral LE (R>L) Derm: wound measuring approx 2.5 cm x 2.5 cm x 0.2 cm noted on the lateral aspect of the right foot, wound base is mainly fibrotic with hyperkeratotic tissue in the wound bed, no granular tissue noted, approx. 2 cc of purulence drainage noted from the wound up on applying pressure, no malodor, periwound erythema present, no tunneling, no undermining; Wound measuring approx 1.5 cm x 1.0 cm x 0.2 cm noted on the anterior lateral aspect of the left ankle with another small wound distal medial to the ankle wound, wound base is mainly fibrotic with hyperkeratotic tissue in the wound bed, no granular tissue noted, no active drainage, no malodor, periwound erythema present, no tunneling, no undermining, no purulence Neuro: Protective sensation is grossly intact B/L Ortho: Mild tenderness to palpation of right foot wound. Left ankle ulceration mildly tender - Neurological Exam Neurological Exam: Alert, Awake, Oriented x3 - Psychiatric Exam Psychiatric exam: Normal Affect, Normal Mood Assessment and Plan - Assessment and Plan (Free Text) Assessment: 61 year old female patient with bilateral foot wounds with cellulitis, resolving Plan: Patient seen and evaluated with attending, Dr. Mattson Afebrile, WBC WNL 9.6 Right foot wound cultures: Group B strep, MRSA Continue IV abx - meropenem and linezolid Arterial duplex scan 03/29 - mildly abnormal CASSIDY Bilateral foot and ankle MRI ordered - unable to obtain F/u bone scan report - Suggests acute OM of the calcaneus due to positive uptake on delayed phase however patient has no source of infection/wound to the calcaneus. Wound present on the lateral aspect of the right forefoot. Continue local wound care: -Wound debrided using sterile suture removal kit - tolerated the procedure well -Bilateral LE saline cleanse, bactroban, optifoam Multipodus boots to be worn at all times while in bed f/u vascular consult Patient is allowed PWB to right heel in a surgical shoe Podiatry will continue to follow
[2017-07-02] MEDS: Nystatin 100,000 Units/gm Topical Pow(15 gm) TOP SCH (17:02)
--- NOTE | 2017-07-02 17:40 | CP.PCM.PN ---
Subjective - Date & Time of Evaluation Date of Evaluation: 07/02/17 Time of Evaluation: 12:20 - Subjective Subjective: Patient is still complaining of some pain on the right leg, no fevers, not in distress. Objective - Vital Signs/Intake and Output Vital Signs (last 24 hours): Temp Pulse Resp BP Pulse Ox 98 F 90 18 154/74 H 100 07/02/17 14:00 07/02/17 14:00 07/02/17 14:00 07/02/17 14:00 07/02/17 14:00 Intake and Output: 07/02/17 07/02/17 06:59 18:59 Intake Total 120 480 Output Total 150 Balance 120 330 - Medications Medications: Current Medications Acetaminophen (Tylenol 325mg Tab) 650 mg PO Q6H PRN PRN Reason: Fever >100.4 F Last Admin: 06/27/17 19:06 Dose: 650 mg Collagenase (Santyl) 0 gm TOP DAILY [facility] Last Admin: 07/02/17 10:51 Dose: 1 applic Cyanocobalamin (Vitamin B12 1000 Mcg Tab) 500 mcg PO DAILY [facility] Last Admin: 07/02/17 10:50 Dose: 500 mcg Dextrose (Dextrose 50% Inj) 25 ml IVP ONCE PRN PRN Reason: Hypoglycemia Ferrous Sulfate (Feosol) 324 mg PO TID [facility] Last Admin: 07/02/17 17:00 Dose: 324 mg Folic Acid (Folic Acid) 1 mg PO DAILY [facility] Last Admin: 07/02/17 10:50 Dose: 1 mg Meropenem 250 mg/ Sodium (Chloride) 100 mls @ 100 mls/hr IVPB Q12 [facility] PRN Reason: Protocol Stop: 07/06/17 10:01 Last Admin: 07/02/17 10:51 Dose: 100 mls/hr Sodium Chloride (Sodium Chloride 0.45%) 1,000 mls @ 100 mls/hr IV .Q10H [facility] Last Admin: 07/02/17 10:53 Dose: 100 mls/hr Insulin Human Regular (Humulin R Low) 0 units SC ACHS [facility] PRN Reason: Protocol Last Admin: 07/02/17 17:01 Dose: 2 units Linezolid (Zyvox) 600 mg PO BID [facility] PRN Reason: Protocol Stop: 07/06/17 10:01 Last Admin: 07/02/17 17:00 Dose: 600 mg Metoprolol Succinate (Toprol Xl) 25 mg PO BRK [facility] Last Admin: 07/02/17 08:26 Dose: 25 mg Multivitamins/Minerals (Therapeutic-M Tab) 1 tab PO 0800 [facility] Last Admin: 07/02/17 08:26 Dose: 1 tab Mupirocin (Bactroban Ointment) 0.5 gm TOP BID [facility] Last Admin: 07/02/17 17:03 Dose: 1 applic Nystatin (Nystop Topical Powder) 0 gm TOP BID [facility] Last Admin: 07/02/17 17:02 Dose: 1 applic Pantoprazole Sodium (Protonix Ec Tab) 40 mg PO 0600 [facility] Last Admin: 07/02/17 05:36 Dose: 40 mg Sodium Bicarbonate (Sodium Bicarbonate Tab) 1,300 mg PO QID [facility] Last Admin: 07/02/17 17:00 Dose: 1,300 mg - Labs Labs: 07/02/17 07:30 07/02/17 07:30 PT 14.7 SECONDS (9.4-12.5) H 06/26/17 16:01 INR 1.28 (0.93-1.08) H 06/26/17 16:01 APTT 33.9 Seconds (25.1-36.5) 06/26/17 16:01 - Constitutional Appears: Cachectic, Chronically Ill - Head Exam Head Exam: NORMAL INSPECTION - Neck Exam Neck Exam: absent: Meningismus - Respiratory Exam Respiratory Exam: Decreased Breath Sounds - Cardiovascular Exam Cardiovascular Exam: +S1, +S2 - GI/Abdominal Exam GI & Abdominal Exam: Soft. absent: Tenderness Assessment and Plan - Assessment and Plan (Free Text) Plan: Assessment severe sepsis due to right foot cellulitis with Group B Strep and Methicilin- resistant Staph aureus R/O acute on chronic osteomyelitis with history of partial resection of right calcaneus history of Acute osteomyelitis of the left foot; grew beta hemolytic strep DM Plan continue Zyvox and Merrem; reviewed bone scan results - patient will need at least 4-6 weeks of antibiotics with weekly ESR, CRP, CBC, CMP follow up further plans of Podiatry will continue to monitor clinically
[2017-07-03] MEDS: Sodium Chloride 0.45% 1,000 ML IV SCH ×2 (04:59→05:00)
[2017-07-03] MEDS: Pantoprazole 40 mg EC Tab PO SCH (05:00)
[2017-07-03] MEDS: Insulin Reg-LOW-Coverage SC SCH ×4 (07:30→21:59)
[2017-07-03 07:49] LABS: BASO # 0.03 K/mm3 (0.0-2.0); BASO % 0.3 % (0.0-3.0); EOS # 0.4 (0.0-0.7); EOS % 4.3 % (1.5-5.0); GRAN # 6.73 (1.4-6.5); GRAN % 65.4 % (50.0-68.0); HEMOGLOBIN 9.7 g/dL (12.0-16.0); LYMPH # 2.1 (1.2-3.4); LYMPH % 20.8 % (22.0-35.0); MEAN CELL VOLUME 92.8 fl (80.0-105.0); MEAN CORPUSCULAR HEMOGLOBIN 30.2 pg (25.0-35.0); MEAN CORPUSCULAR HGB CONC 32.6 g/dl (31.0-37.0); MEAN PLATELET VOLUME 9.4 fl (7.0-11.0); MONO % 9.2 % (1.0-6.0); RBC 3.21 10^6/uL (3.5-6.1); WHITE BLOOD COUNT 10.3 10^3/ul (4.5-11.0)
[2017-07-03 08:11] LABS: CALCIUM 8.4 mg/dL (8.4-10.5)
[2017-07-03] MEDS: Multivitamin With Minerals Tab PO SCH (09:48)
[2017-07-03] MEDS: Metoprolol Succinate 25 mg XL Tab PO SCH (09:48)
[2017-07-03] MEDS: Collagenase 250 Units/gm Ointment(30 gm) TOP SCH (09:49)
[2017-07-03] MEDS: Nystatin 100,000 Units/gm Topical Pow(15 gm) TOP SCH ×2 (09:52→17:20)
[2017-07-03] MEDS ORDERED: Sodium Chloride 0.45% 1,000 ML IV SCH (10:44)
--- NOTE | 2017-07-03 15:38 | CP.PCM.PN ---
<Natanael Allison - Last Filed: 07/04/17 10:52> Subjective - Date & Time of Evaluation Date of Evaluation: 07/03/17 Time of Evaluation: 15:35 - Subjective Subjective: Patient seen and examined this AM. No acute events reported overnight. Patient indicates no complaints at this time. Denies chest pain, shortness of breath, abdominal pain, nausea, vomiting. Objective - Vital Signs/Intake and Output Vital Signs (last 24 hours): Temp Pulse Resp BP Pulse Ox 98.2 F 82 18 126/54 L 100 07/03/17 07:48 07/03/17 07:48 07/03/17 07:48 07/03/17 07:48 07/03/17 07:48 Intake and Output: 07/03/17 07/03/17 06:59 18:59 Intake Total 720 500 Output Total 800 Balance -80 500 - Medications Medications: Current Medications Acetaminophen (Tylenol 325mg Tab) 650 mg PO Q6H PRN PRN Reason: Fever >100.4 F Last Admin: 06/27/17 19:06 Dose: 650 mg Collagenase (Santyl) 0 gm TOP DAILY [facility] Last Admin: 07/03/17 09:49 Dose: 1 applic Cyanocobalamin (Vitamin B12 1000 Mcg Tab) 500 mcg PO DAILY [facility] Last Admin: 07/03/17 09:48 Dose: 500 mcg Dextrose (Dextrose 50% Inj) 25 ml IVP ONCE PRN PRN Reason: Hypoglycemia Ferrous Sulfate (Feosol) 324 mg PO TID [facility] Last Admin: 07/03/17 13:14 Dose: 324 mg Folic Acid (Folic Acid) 1 mg PO DAILY [facility] Last Admin: 07/03/17 09:49 Dose: 1 mg Meropenem 250 mg/ Sodium (Chloride) 100 mls @ 100 mls/hr IVPB Q12 [facility] PRN Reason: Protocol Stop: 07/06/17 10:01 Last Admin: 07/03/17 09:47 Dose: 100 mls/hr Sodium Chloride (Sodium Chloride 0.45%) 1,000 mls @ 50 mls/hr IV .Q20H [facility] Insulin Human Regular (Humulin R Low) 0 units SC ACHS [facility] PRN Reason: Protocol Last Admin: 07/03/17 11:43 Dose: 2 units Linezolid (Zyvox) 600 mg PO BID [facility] PRN Reason: Protocol Stop: 07/06/17 10:01 Last Admin: 07/03/17 09:48 Dose: 600 mg Metoprolol Succinate (Toprol Xl) 25 mg PO BRK [facility] Last Admin: 07/03/17 09:48 Dose: 25 mg Multivitamins/Minerals (Therapeutic-M Tab) 1 tab PO 0800 [facility] Last Admin: 07/03/17 09:48 Dose: 1 tab Mupirocin (Bactroban Ointment) 0.5 gm TOP BID [facility] Last Admin: 07/03/17 09:52 Dose: 1 applic Nystatin (Nystop Topical Powder) 0 gm TOP BID [facility] Last Admin: 07/03/17 09:52 Dose: 1 applic Pantoprazole Sodium (Protonix Ec Tab) 40 mg PO 0600 [facility] Last Admin: 07/03/17 05:00 Dose: 40 mg Sodium Bicarbonate (Sodium Bicarbonate Tab) 1,300 mg PO QID [facility] Last Admin: 07/03/17 13:14 Dose: 1,300 mg - Labs Labs: 07/03/17 07:30 07/03/17 07:30 PT 14.7 SECONDS (9.4-12.5) H 06/26/17 16:01 INR 1.28 (0.93-1.08) H 06/26/17 16:01 APTT 33.9 Seconds (25.1-36.5) 06/26/17 16:01 - Constitutional Appears: No Acute Distress - Head Exam Head Exam: ATRAUMATIC, NORMAL INSPECTION, NORMOCEPHALIC - Eye Exam Eye Exam: EOMI, PERRL - Neck Exam Neck Exam: Full ROM - Respiratory Exam Respiratory Exam: Clear to Ausculation Bilateral, NORMAL BREATHING PATTERN. absent: Rales, Rhonchi, Wheezes - Cardiovascular Exam Cardiovascular Exam: REGULAR RHYTHM, +S1, +S2 - GI/Abdominal Exam GI & Abdominal Exam: Soft, Normal Bowel Sounds. absent: Tenderness - Extremities Exam Additional comments: Pedal pulses present, appropriate capillar refill b/l LE multipodus boot present on right foot Right lateral foot wound measuring approx 2.5 cm x 2.5 cm x 0.2 cm, wound base is mainly fibrotic with hyperkeratotic tissue in the wound bed, no granular tissue noted, approx. Wound measuring approx 1.5 cm x 1.0 cm x 0.2 cm noted on the anterior lateral aspect of the left ankle with another small wound distal medial to the ankle wound, wound base is mainly fibrotic with hyperkeratotic tissue in the wound bed - Neurological Exam Neurological Exam: Alert, Awake, Oriented x3 - Psychiatric Exam Psychiatric exam: Normal Affect, Normal Mood - Skin Skin Exam: Dry, Warm Assessment and Plan - Assessment and Plan (Free Text) Assessment: 61 year old female with history of PVD, CKD, HTN, iron deficiency anemia who initially presented to hospital with complaint of non-healing RLE ulceration. Patient found to be anemic likely secondary to ACD vs. Iron deficiency anemia, FREDY likely secondary to dehydration, and UTI. Patient with gastric hyperplastic polyp s/p clipping with GI. Patient bone scan showing OM of calcaneus. PT evalauted patient and recommending CHUCHO. Plan: OM of right foot Details: - Nonhealing right foot ulcer likely from poor vascular disease, - On admission febrile w/out elevation WBC - Right foot xray: negative for acute fractures or changes concerning for OM - Wound culture growing light MRSA and heavy Group B strep - MRI having to be held off for seven days due to clip placement - Bone scan showing evidence of OM of calcaneus Plan: - ID consulted, f/u recs - Percocet for pain - Podiatry consulted, f/u recs - Vascular consult, multipodus boots - arterial duplex 03/29 with mildly abnormal CASSIDY - Merropenem and xyvox for abx - Bone scan showing evidence of OM will look to ID for antibiotic recs - 4-6 weeks of antibiotics, weekly ESR, CRP, CBC, CMP FREDY on CKD Details: - etiology: dehydration vs. infection - Nephrology consulted, following - Cr most likely close to baseline - Previous renal workup showing GN serolgies to be negative, scleroderma negative Plan: - IVF - F/u nephro recs UTI Details: - UA positive for leuk est, nitrates - ID consulted, Nephro consulted - Urine culture growing e.coli Plan: - Continue current antibiotics - ID following, f/u recs Anemia Details: - Likely etiology anemia of chronic disease with iron deficiency anemia - H/H low on admission ~ 6.7 (baseline 11) - s/p 2 transfusions pRBC - H/H stable - Retic count 1.6 Plan: - H/H stable, monitor at this point - Gi consult for investigation of etiology, f/u EGD and colonoscopy - EGD showing large erythematous hyperplastic polyp in the prepyloric reegion , gastritis, 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 Skin breakdown on posterior lumbo sacral region - Nystatin powder to be applied to affected area BID DVT ppx: SCDs GI ppx: Protonix Case and plan discussed with attending <Luna Haque - Last Filed: 07/04/17 11:06> Objective - Vital Signs/Intake and Output Vital Signs (last 24 hours): Temp Pulse Resp BP Pulse Ox 98.1 F 103 H 20 121/65 100 07/04/17 06:00 07/04/17 08:15 07/04/17 06:00 07/04/17 08:15 07/04/17 06:00 Intake and Output: 07/04/17 07/04/17 06:59 18:59 Intake Total 840 Output Total 600 Balance 240 - Medications Medications: Current Medications Acetaminophen (Tylenol 325mg Tab) 650 mg PO Q6H PRN PRN Reason: Fever >100.4 F Last Admin: 06/27/17 19:06 Dose: 650 mg Collagenase (Santyl) 0 gm TOP DAILY [facility] Last Admin: 07/04/17 09:36 Dose: 1 applic Cyanocobalamin (Vitamin B12 1000 Mcg Tab) 500 mcg PO DAILY [facility] Last Admin: 07/04/17 09:32 Dose: 500 mcg Dextrose (Dextrose 50% Inj) 25 ml IVP ONCE PRN PRN Reason: Hypoglycemia Ferrous Sulfate (Feosol) 324 mg PO TID [facility] Last Admin: 07/04/17 09:31 Dose: 324 mg Folic Acid (Folic Acid) 1 mg PO DAILY [facility] Last Admin: 07/04/17 09:31 Dose: 1 mg Meropenem 250 mg/ Sodium (Chloride) 100 mls @ 100 mls/hr IVPB Q12 [facility] PRN Reason: Protocol Stop: 07/06/17 10:01 Last Admin: 07/04/17 10:15 Dose: 100 mls/hr Sodium Chloride (Sodium Chloride 0.45%) 1,000 mls @ 50 mls/hr IV .Q20H [facility] Insulin Human Regular (Humulin R Low) 0 units SC ACHS [facility] PRN Reason: Protocol Last Admin: 07/04/17 08:14 Dose: 1 units Linezolid (Zyvox) 600 mg PO BID [facility] PRN Reason: Protocol Stop: 07/06/17 10:01 Last Admin: 07/04/17 09:31 Dose: 600 mg Metoprolol Succinate (Toprol Xl) 25 mg PO BRK [facility] Last Admin: 07/04/17 08:15 Dose: 25 mg Multivitamins/Minerals (Therapeutic-M Tab) 1 tab PO 0800 [facility] Last Admin: 07/04/17 08:15 Dose: 1 tab Mupirocin (Bactroban Ointment) 0.5 gm TOP BID [facility] Last Admin: 07/04/17 10:15 Dose: 1 applic Nystatin (Nystop Topical Powder) 0 gm TOP BID [facility] Last Admin: 07/04/17 09:35 Dose: 1 applic Pantoprazole Sodium (Protonix Ec Tab) 40 mg PO 0600 [facility] Last Admin: 07/04/17 06:00 Dose: Not Given Sodium Bicarbonate (Sodium Bicarbonate Tab) 1,300 mg PO QID [facility] Last Admin: 07/04/17 09:30 Dose: 1,300 mg - Labs Labs: 07/03/17 07:30 07/03/17 07:30 PT 14.7 SECONDS (9.4-12.5) H 06/26/17 16:01 INR 1.28 (0.93-1.08) H 06/26/17 16:01 APTT 33.9 Seconds (25.1-36.5) 06/26/17 16:01 Attending/Attestation - Attestation I have personally seen and examined this patient.: Yes I have fully participated in the care of the patient.: Yes I have reviewed all pertinent clinical information, including history, physical exam and plan: Yes Notes (Text): 07/03/17 61 year old female with past medical history of PVD, CKD, hypertension and anemia who presented with sepsis secondary to infected heel ulcer and E Coli UTI. Bone scan was suggestive of osteomyelitis. She is on iv antibiotics. ID and podiatry are following the patient. Her anemia has been stable s/p 2 units prbc transfusion. GI evaluation was appreciated and she is s/p EGD which showed Chapito's esophagus, gastritis and gastric polyp s/p polypectomy. Nephrology is also following for acute on chronic kidney disease which has improved. Luna Haque MD Hospitalist.
--- NOTE | 2017-07-03 16:59 | CP.PCM.PN ---
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 No ACEI/ARB due to FREDY and hyperkalemia in past. maintain hemodynamics stable. resume Toprol XL 25 mg/day Monitor Input/Output, daily weights and renal function with basic metabolic panel resume Sodium bicarb 1300 mg qid, also on iron and MVI supplements. dose of ananesp 06/27/17, s/p PRBC transfusion continue with IVF as 0.45% saline , rate lowered to 50 ml/hr pending urine Na/K/Cl to calculate UAG Dose meds/antibiotics for improved GFR. Avoid fleets enema/magnesium based laxatives. Avoid nephrotoxins/NSAIDs/ iodinated contrast (unless needed emergently) Glycemic control Further work up/management as per primary team Thanks for allowing me to participate in care of your patient. Will follow patient with you. Please call if any Qs. 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 now readmitted for Sepsis with anemia and FREDY renal consult for FREDY management. Denies chest pain, palpitation, shortness of breath, leg swelling. says foot pain better Has chronic loose stool 2-3 times/day but better now a days. ROS: pt denies any new complaints. no CP/SOB. no pain abdomen General Appearance: Comfortable, in no acute respiratory distress, co- operative. thin built. Vitals reviewed and noted Head; Atraumatic, normocephalic ENT: no ulcers no thrush. Tongue is midline. Oropharynx: no rash or ulcers. Hard of hearing. Uses hearing aid. EYES: Pupils are equal, round and reactive to light accommodation. Eye muscles and extraocular movement intact. Sclera is anicteric. Neck; supple no lymphadenopathy, no thyromegaly or bruit Lungs: Normal respiratory rate/effort. Breath sounds bilateral equal and clear Heart: Increased rate. s1s2 normal. No rub or gallop. Extremities: no edema with wound dressed at feet. No varicose veins. Hand osteoarthritic deformities +. Neurological: Patient is alert, awake and oriented to person, place and time. No focal deficit. Strength bilateral appropriate and equal Skin: Warm and dry. Normal turgor. Palpitation: Normal elasticity for age. Abdomen: Abdomen is soft. Bowel sounds +. There is no abdominal tenderness, no guarding/rigidity or organomegaly Psych: normal insight and normal affect/mood MSK: no joint tenderness or swelling. hands swelling noted : kidney or bladder not palpable Labs/imaging reviewed. Past medical history, past surgical history, family history, social history, allergy reviewed and noted as below Family hx: no hx of CKD. Rest non-contributory Work up: 09/13/2016: GN serologies all negative, scleroderma work up neg, SPEP/LUDY neg Renal sono: b/l cortical atrophy. Small 1 cm Rt kidney simple cyst. Objective - Vital Signs/Intake and Output Vital Signs (last 24 hours): Temp Pulse Resp BP Pulse Ox 98.2 F 82 18 126/54 L 100 07/03/17 07:48 07/03/17 07:48 07/03/17 07:48 07/03/17 07:48 07/03/17 07:48 Intake and Output: 07/03/17 07/03/17 06:59 18:59 Intake Total 720 500 Output Total 800 Balance -80 500 - Medications Medications: Current Medications Acetaminophen (Tylenol 325mg Tab) 650 mg PO Q6H PRN PRN Reason: Fever >100.4 F Last Admin: 06/27/17 19:06 Dose: 650 mg Collagenase (Santyl) 0 gm TOP DAILY [facility] Last Admin: 07/03/17 09:49 Dose: 1 applic Cyanocobalamin (Vitamin B12 1000 Mcg Tab) 500 mcg PO DAILY [facility] Last Admin: 07/03/17 09:48 Dose: 500 mcg Dextrose (Dextrose 50% Inj) 25 ml IVP ONCE PRN PRN Reason: Hypoglycemia Ferrous Sulfate (Feosol) 324 mg PO TID [facility] Last Admin: 07/03/17 13:14 Dose: 324 mg Folic Acid (Folic Acid) 1 mg PO DAILY [facility] Last Admin: 07/03/17 09:49 Dose: 1 mg Meropenem 250 mg/ Sodium (Chloride) 100 mls @ 100 mls/hr IVPB Q12 [facility] PRN Reason: Protocol Stop: 07/06/17 10:01 Last Admin: 07/03/17 09:47 Dose: 100 mls/hr Sodium Chloride (Sodium Chloride 0.45%) 1,000 mls @ 50 mls/hr IV .Q20H [facility] Insulin Human Regular (Humulin R Low) 0 units SC ACHS [facility] PRN Reason: Protocol Last Admin: 07/03/17 16:52 Dose: 3 units Linezolid (Zyvox) 600 mg PO BID [facility] PRN Reason: Protocol Stop: 07/06/17 10:01 Last Admin: 07/03/17 09:48 Dose: 600 mg Metoprolol Succinate (Toprol Xl) 25 mg PO BRK [facility] Last Admin: 07/03/17 09:48 Dose: 25 mg Multivitamins/Minerals (Therapeutic-M Tab) 1 tab PO 0800 [facility] Last Admin: 07/03/17 09:48 Dose: 1 tab Mupirocin (Bactroban Ointment) 0.5 gm TOP BID [facility] Last Admin: 07/03/17 09:52 Dose: 1 applic Nystatin (Nystop Topical Powder) 0 gm TOP BID [facility] Last Admin: 07/03/17 09:52 Dose: 1 applic Pantoprazole Sodium (Protonix Ec Tab) 40 mg PO 0600 [facility] Last Admin: 07/03/17 05:00 Dose: 40 mg Sodium Bicarbonate (Sodium Bicarbonate Tab) 1,300 mg PO QID [facility] Last Admin: 07/03/17 13:14 Dose: 1,300 mg - Labs Labs: 07/03/17 07:30 07/03/17 07:30 PT 14.7 SECONDS (9.4-12.5) H 06/26/17 16:01 INR 1.28 (0.93-1.08) H 06/26/17 16:01 APTT 33.9 Seconds (25.1-36.5) 06/26/17 16:01
--- NOTE | 2017-07-03 18:02 | CP.PCM.PN ---
<Giovanna Herreradorethaezekiel - Last Filed: 07/03/17 18:00> Subjective - Date & Time of Evaluation Date of Evaluation: 07/03/17 Time of Evaluation: 18:00 - Subjective Subjective: Podiatry Consult note: Dr. Mattson/Dr. Raymond 61 year old female seen and evaluated at bedside for bilateral foot ulcerations. Patient resting in bed comfortably, NAD. Denies of any pain today. Multipodus boot present to RLE. Denies N/V/F/D/C/SOB/CP/[facility]ERS/dizziness. No new pedal complains. Objective - Vital Signs/Intake and Output Vital Signs (last 24 hours): Temp Pulse Resp BP Pulse Ox 98.2 F 82 18 126/54 L 100 07/03/17 07:48 07/03/17 07:48 07/03/17 07:48 07/03/17 07:48 07/03/17 07:48 Intake and Output: 07/03/17 07/03/17 06:59 18:59 Intake Total 720 500 Output Total 800 Balance -80 500 - Medications Medications: Current Medications Acetaminophen (Tylenol 325mg Tab) 650 mg PO Q6H PRN PRN Reason: Fever >100.4 F Last Admin: 06/27/17 19:06 Dose: 650 mg Collagenase (Santyl) 0 gm TOP DAILY [facility] Last Admin: 07/03/17 09:49 Dose: 1 applic Cyanocobalamin (Vitamin B12 1000 Mcg Tab) 500 mcg PO DAILY [facility] Last Admin: 07/03/17 09:48 Dose: 500 mcg Darbepoetin Brown (Aranesp) 60 mcg SC ONCE ONE Stop: 07/04/17 10:01 Dextrose (Dextrose 50% Inj) 25 ml IVP ONCE PRN PRN Reason: Hypoglycemia Ferrous Sulfate (Feosol) 324 mg PO TID [facility] Last Admin: 07/03/17 17:20 Dose: 324 mg Folic Acid (Folic Acid) 1 mg PO DAILY [facility] Last Admin: 07/03/17 09:49 Dose: 1 mg Meropenem 250 mg/ Sodium (Chloride) 100 mls @ 100 mls/hr IVPB Q12 [facility] PRN Reason: Protocol Stop: 07/06/17 10:01 Last Admin: 07/03/17 09:47 Dose: 100 mls/hr Sodium Chloride (Sodium Chloride 0.45%) 1,000 mls @ 50 mls/hr IV .Q20H [facility] Insulin Human Regular (Humulin R Low) 0 units SC ACHS [facility] PRN Reason: Protocol Last Admin: 07/03/17 16:52 Dose: 3 units Linezolid (Zyvox) 600 mg PO BID [facility] PRN Reason: Protocol Stop: 07/06/17 10:01 Last Admin: 07/03/17 17:20 Dose: 600 mg Metoprolol Succinate (Toprol Xl) 25 mg PO BRK [facility] Last Admin: 07/03/17 09:48 Dose: 25 mg Multivitamins/Minerals (Therapeutic-M Tab) 1 tab PO 0800 [facility] Last Admin: 07/03/17 09:48 Dose: 1 tab Mupirocin (Bactroban Ointment) 0.5 gm TOP BID [facility] Last Admin: 07/03/17 17:19 Dose: 1 applic Nystatin (Nystop Topical Powder) 0 gm TOP BID [facility] Last Admin: 07/03/17 17:20 Dose: 1 applic Pantoprazole Sodium (Protonix Ec Tab) 40 mg PO 0600 [facility] Last Admin: 07/03/17 05:00 Dose: 40 mg Sodium Bicarbonate (Sodium Bicarbonate Tab) 1,300 mg PO QID [facility] Last Admin: 07/03/17 17:20 Dose: 1,300 mg - Labs Labs: 07/03/17 07:30 07/03/17 07:30 PT 14.7 SECONDS (9.4-12.5) H 06/26/17 16:01 INR 1.28 (0.93-1.08) H 06/26/17 16:01 APTT 33.9 Seconds (25.1-36.5) 06/26/17 16:01 - Constitutional Appears: Well, Non-toxic, No Acute Distress - Extremities Exam Additional comments: Lower extremity focused examination: Vasc: DP/PT pulses palpable 2/4 B/L. Temperature gradient warm to warm from proximal to distal. Cap refill time: < 3 sec to all digits, mild non-pitting edema noted on bilateral LE (R>L) Derm: wound measuring approx 2.5 cm x 2.5 cm x 0.2 cm noted on the lateral aspect of the right foot, wound base is mainly fibrotic with hyperkeratotic tissue in the wound bed, no granular tissue noted, approx. 2 cc of purulence drainage noted from the wound up on applying pressure, no malodor, periwound erythema present, no tunneling, no undermining; Wound measuring approx 1.5 cm x 1.0 cm x 0.2 cm noted on the anterior lateral aspect of the left ankle with another small wound distal medial to the ankle wound, wound base is mainly fibrotic with hyperkeratotic tissue in the wound bed, no granular tissue noted, no active drainage, no malodor, periwound erythema present, no tunneling, no undermining, no purulence Neuro: Protective sensation is grossly intact B/L Ortho: Mild tenderness to palpation of right foot wound. Left ankle ulceration mildly tender - Neurological Exam Neurological Exam: Alert, Awake, Oriented x3 - Psychiatric Exam Psychiatric exam: Normal Affect, Normal Mood Assessment and Plan - Assessment and Plan (Free Text) Assessment: 61 year old female patient with bilateral foot wounds with cellulitis, resolving Plan: Patient seen and evaluated with attending, Dr. Mattson Afebrile, WBC WNL 10.3 Right foot wound cultures: Group B strep, MRSA Continue IV abx - meropenem and linezolid Arterial duplex scan 03/29 - mildly abnormal CASSIDY Bilateral foot and ankle MRI ordered - unable to obtain F/u bone scan report - Suggests acute OM of the calcaneus due to positive uptake on delayed phase however patient has no source of infection/wound to the calcaneus. Wound present on the lateral aspect of the right forefoot. Continue local wound care: -Wound debrided using sterile suture removal kit - tolerated the procedure well -Bilateral LE saline cleanse, bactroban, optifoam Multipodus boots to be worn at all times while in bed f/u vascular consult Patient is allowed PWB to right heel in a surgical shoe Podiatry will continue to follow <Jose Raymond - Last Filed: 07/04/17 08:33> Objective - Vital Signs/Intake and Output Vital Signs (last 24 hours): Temp Pulse Resp BP Pulse Ox 97.7 F 103 H 18 121/65 100 07/03/17 23:09 07/04/17 08:15 07/03/17 23:09 07/04/17 08:15 07/03/17 23:09 Intake and Output: 07/04/17 07/04/17 06:59 18:59 Intake Total 840 Output Total 600 Balance 240 - Medications Medications: Current Medications Acetaminophen (Tylenol 325mg Tab) 650 mg PO Q6H PRN PRN Reason: Fever >100.4 F Last Admin: 06/27/17 19:06 Dose: 650 mg Collagenase (Santyl) 0 gm TOP DAILY [facility] Last Admin: 07/03/17 09:49 Dose: 1 applic Cyanocobalamin (Vitamin B12 1000 Mcg Tab) 500 mcg PO DAILY [facility] Last Admin: 07/03/17 09:48 Dose: 500 mcg Darbepoetin Brown (Aranesp) 60 mcg SC ONCE ONE Stop: 07/04/17 10:01 Dextrose (Dextrose 50% Inj) 25 ml IVP ONCE PRN PRN Reason: Hypoglycemia Ferrous Sulfate (Feosol) 324 mg PO TID [facility] Last Admin: 07/03/17 17:20 Dose: 324 mg Folic Acid (Folic Acid) 1 mg PO DAILY [facility] Last Admin: 07/03/17 09:49 Dose: 1 mg Meropenem 250 mg/ Sodium (Chloride) 100 mls @ 100 mls/hr IVPB Q12 [facility] PRN Reason: Protocol Stop: 07/06/17 10:01 Last Admin: 07/03/17 21:55 Dose: 100 mls/hr Sodium Chloride (Sodium Chloride 0.45%) 1,000 mls @ 50 mls/hr IV .Q20H [facility] Insulin Human Regular (Humulin R Low) 0 units SC ACHS [facility] PRN Reason: Protocol Last Admin: 07/04/17 08:14 Dose: 1 units Linezolid (Zyvox) 600 mg PO BID [facility] PRN Reason: Protocol Stop: 07/06/17 10:01 Last Admin: 07/03/17 17:20 Dose: 600 mg Metoprolol Succinate (Toprol Xl) 25 mg PO BRK [facility] Last Admin: 07/04/17 08:15 Dose: 25 mg Multivitamins/Minerals (Therapeutic-M Tab) 1 tab PO 0800 [facility] Last Admin: 07/04/17 08:15 Dose: 1 tab Mupirocin (Bactroban Ointment) 0.5 gm TOP BID [facility] Last Admin: 07/03/17 17:19 Dose: 1 applic Nystatin (Nystop Topical Powder) 0 gm TOP BID [facility] Last Admin: 07/03/17 17:20 Dose: 1 applic Pantoprazole Sodium (Protonix Ec Tab) 40 mg PO 0600 [facility] Last Admin: 07/04/17 06:00 Dose: Not Given Sodium Bicarbonate (Sodium Bicarbonate Tab) 1,300 mg PO QID [facility] Last Admin: 07/03/17 21:55 Dose: 1,300 mg - Labs Labs: 07/03/17 07:30 07/03/17 07:30 PT 14.7 SECONDS (9.4-12.5) H 06/26/17 16:01 INR 1.28 (0.93-1.08) H 06/26/17 16:01 APTT 33.9 Seconds (25.1-36.5) 06/26/17 16:01 Attending/Attestation - Attestation I have personally seen and examined this patient.: Yes I have fully participated in the care of the patient.: Yes I have reviewed all pertinent clinical information, including history, physical exam and plan: Yes
--- NOTE | 2017-07-04 02:30 | PN ---
DATE: 07/03/2017 SUBJECTIVE: The patient is seen earlier this morning in room 560, bed 2. No fevers, no chills. OBJECTIVE: VITAL SIGNS: Temperature is 98, blood pressure is 120/70, respiratory rate of 16. HEENT: Unremarkable. NECK: Supple. LUNGS: Have decreased breath sounds. HEART: Normal S1, S2. ABDOMEN: Soft. LABORATORY EXAMINATION: Reveals a white count of 10,300, hemoglobin of 9.7 and platelets of 287. Chemistries reveals a BUN of 14, creatinine of 1.2. Procalcitonin is 12.3. Microbiology is noted, E. coli in the urine and group B Strep in the foot with MRSA. Review of orders reveals the patient to be on meropenem and linezolid. The meropenem requires renewal, which I will do so. ASSESSMENT AND PLAN: This is a 61-year-old with severe sepsis due to right foot cellulitis, group B Streptococcus and methicillin-resistant Staphylococcus aureus, acute on chronic osteomyelitis with a history of partial resection right calculus, history of acute osteomyelitis, left foot, group B Streptococcus, diabetic, on Zyvox and meropenem. We will follow with you. Should have weekly labs . Old scan is also discussed with Dr. Mattson. Carroll Castellano MD
[2017-07-04] MEDS: Pantoprazole 40 mg EC Tab PO SCH (06:00)
[2017-07-04] MEDS: Insulin Reg-LOW-Coverage SC SCH ×2 (08:14→12:25)
[2017-07-04] MEDS: Multivitamin With Minerals Tab PO SCH (08:15)
[2017-07-04] MEDS: Metoprolol Succinate 25 mg XL Tab PO SCH (08:15)
[2017-07-04 08:59] VITALS: RESP 20; TEMP 98.1
[2017-07-04] MEDS: Nystatin 100,000 Units/gm Topical Pow(15 gm) TOP SCH (09:35)
[2017-07-04] MEDS: Darbepoetin Alfa 60 mcg/ml Inj SC ONE ×2 (09:36→10:15)
[2017-07-04] MEDS: Collagenase 250 Units/gm Ointment(30 gm) TOP SCH (09:36)
--- NOTE | 2017-07-04 10:09 | CP.PCM.PN ---
<Giovanna Herreradorethaezekiel - Last Filed: 07/04/17 10:05> Subjective - Date & Time of Evaluation Date of Evaluation: 07/04/17 Time of Evaluation: 10:05 - Subjective Subjective: Podiatry Consult note: Dr. Mattson/Dr. Raymond 61 year old female seen and evaluated at bedside for bilateral foot ulcerations. Patient resting in bed comfortably, NAD. Denies of any pain today. Denies of having any acute overnight events. Multipodus boot present to RLE. Denies N/V/F/D/C/SOB/CP/CHAMBERS/dizziness. No new pedal complains. Objective - Vital Signs/Intake and Output Vital Signs (last 24 hours): Temp Pulse Resp BP Pulse Ox 98.1 F 103 H 20 121/65 100 07/04/17 06:00 07/04/17 08:15 07/04/17 06:00 07/04/17 08:15 07/04/17 06:00 Intake and Output: 07/04/17 07/04/17 06:59 18:59 Intake Total 840 Output Total 600 Balance 240 - Medications Medications: Current Medications Acetaminophen (Tylenol 325mg Tab) 650 mg PO Q6H PRN PRN Reason: Fever >100.4 F Last Admin: 06/27/17 19:06 Dose: 650 mg Collagenase (Santyl) 0 gm TOP DAILY [facility] Last Admin: 07/04/17 09:36 Dose: 1 applic Cyanocobalamin (Vitamin B12 1000 Mcg Tab) 500 mcg PO DAILY [facility] Last Admin: 07/04/17 09:32 Dose: 500 mcg Dextrose (Dextrose 50% Inj) 25 ml IVP ONCE PRN PRN Reason: Hypoglycemia Ferrous Sulfate (Feosol) 324 mg PO TID [facility] Last Admin: 07/04/17 09:31 Dose: 324 mg Folic Acid (Folic Acid) 1 mg PO DAILY [facility] Last Admin: 07/04/17 09:31 Dose: 1 mg Meropenem 250 mg/ Sodium (Chloride) 100 mls @ 100 mls/hr IVPB Q12 [facility] PRN Reason: Protocol Stop: 07/06/17 10:01 Last Admin: 07/03/17 21:55 Dose: 100 mls/hr Sodium Chloride (Sodium Chloride 0.45%) 1,000 mls @ 50 mls/hr IV .Q20H [facility] Insulin Human Regular (Humulin R Low) 0 units SC ACHS [facility] PRN Reason: Protocol Last Admin: 07/04/17 08:14 Dose: 1 units Linezolid (Zyvox) 600 mg PO BID [facility] PRN Reason: Protocol Stop: 07/06/17 10:01 Last Admin: 07/04/17 09:31 Dose: 600 mg Metoprolol Succinate (Toprol Xl) 25 mg PO BRK [facility] Last Admin: 07/04/17 08:15 Dose: 25 mg Multivitamins/Minerals (Therapeutic-M Tab) 1 tab PO 0800 [facility] Last Admin: 07/04/17 08:15 Dose: 1 tab Mupirocin (Bactroban Ointment) 0.5 gm TOP BID [facility] Last Admin: 07/03/17 17:19 Dose: 1 applic Nystatin (Nystop Topical Powder) 0 gm TOP BID [facility] Last Admin: 07/04/17 09:35 Dose: 1 applic Pantoprazole Sodium (Protonix Ec Tab) 40 mg PO 0600 [facility] Last Admin: 07/04/17 06:00 Dose: Not Given Sodium Bicarbonate (Sodium Bicarbonate Tab) 1,300 mg PO QID [facility] Last Admin: 07/04/17 09:30 Dose: 1,300 mg - Labs Labs: 07/03/17 07:30 07/03/17 07:30 PT 14.7 SECONDS (9.4-12.5) H 06/26/17 16:01 INR 1.28 (0.93-1.08) H 06/26/17 16:01 APTT 33.9 Seconds (25.1-36.5) 06/26/17 16:01 - Constitutional Appears: Well, Non-toxic, No Acute Distress - Extremities Exam Additional comments: Lower extremity focused examination: Vasc: DP/PT pulses palpable 2/4 B/L. Temperature gradient warm to warm from proximal to distal. Cap refill time: < 3 sec to all digits, mild non-pitting edema noted on bilateral LE (R>L) Derm: wound measuring approx 2.5 cm x 2.5 cm x 0.2 cm noted on the lateral aspect of the right foot, wound base is mainly fibrotic with hyperkeratotic tissue in the wound bed, no granular tissue noted, approx. 2 cc of purulence drainage noted from the wound up on applying pressure, no malodor, periwound erythema present, no tunneling, no undermining; Wound measuring approx 1.5 cm x 1.0 cm x 0.2 cm noted on the anterior lateral aspect of the left ankle with another small wound distal medial to the ankle wound, wound base is mainly fibrotic with hyperkeratotic tissue in the wound bed, no granular tissue noted, no active drainage, no malodor, periwound erythema present, no tunneling, no undermining, no purulence Neuro: Protective sensation is grossly intact B/L Ortho: Mild tenderness to palpation of right foot wound. Left ankle ulceration mildly tender - Neurological Exam Neurological Exam: Alert, Awake, Oriented x3 - Psychiatric Exam Psychiatric exam: Normal Affect, Normal Mood Assessment and Plan - Assessment and Plan (Free Text) Assessment: 61 year old female patient with bilateral foot wounds with cellulitis, resolving Plan: Patient seen and evaluated with attending, Dr. Raymond Afebrile, WBC WNL 10.3 as of yesterday Right foot wound cultures: Group B strep, MRSA Continue IV abx - meropenem and linezolid Arterial duplex scan 03/29 - mildly abnormal CASSIDY Bilateral foot and ankle MRI ordered - unable to obtain F/u bone scan report - Suggests acute OM of the calcaneus due to positive uptake on delayed phase however patient has no source of infection/wound to the calcaneus. Wound present on the lateral aspect of the right forefoot. Continue local wound care: -Wound debrided using sterile suture removal kit - tolerated the procedure well -Bilateral LE saline cleanse, bactroban, optifoam Multipodus boots to be worn at all times while in bed f/u vascular consult Patient is allowed PWB to right heel in a surgical shoe Podiatry will continue to follow while in house Follow up at wound care center upon discharge from the hospital <Jose Raymond - Last Filed: 07/04/17 15:18> Objective - Vital Signs/Intake and Output Vital Signs (last 24 hours): Temp Pulse Resp BP Pulse Ox 98.1 F 103 H 20 121/65 100 07/04/17 06:00 07/04/17 08:15 07/04/17 06:00 07/04/17 08:15 07/04/17 06:00 Intake and Output: 07/04/17 07/04/17 06:59 18:59 Intake Total 840 600 Output Total 600 400 Balance 240 200 - Medications Medications: Current Medications Acetaminophen (Tylenol 325mg Tab) 650 mg PO Q6H PRN PRN Reason: Fever >100.4 F Last Admin: 06/27/17 19:06 Dose: 650 mg Collagenase (Santyl) 0 gm TOP DAILY [facility] Last Admin: 07/04/17 09:36 Dose: 1 applic Cyanocobalamin (Vitamin B12 1000 Mcg Tab) 500 mcg PO DAILY [facility] Last Admin: 07/04/17 09:32 Dose: 500 mcg Dextrose (Dextrose 50% Inj) 25 ml IVP ONCE PRN PRN Reason: Hypoglycemia Ferrous Sulfate (Feosol) 324 mg PO TID [facility] Last Admin: 07/04/17 14:12 Dose: 324 mg Folic Acid (Folic Acid) 1 mg PO DAILY [facility] Last Admin: 07/04/17 09:31 Dose: 1 mg Meropenem 250 mg/ Sodium (Chloride) 100 mls @ 100 mls/hr IVPB Q12 [facility] PRN Reason: Protocol Stop: 07/06/17 10:01 Last Admin: 07/04/17 10:15 Dose: 100 mls/hr Sodium Chloride (Sodium Chloride 0.45%) 1,000 mls @ 50 mls/hr IV .Q20H [facility] Insulin Human Regular (Humulin R Low) 0 units SC ACHS [facility] PRN Reason: Protocol Last Admin: 07/04/17 12:25 Dose: 4 units Linezolid (Zyvox) 600 mg PO BID [facility] PRN Reason: Protocol Stop: 07/06/17 10:01 Last Admin: 07/04/17 09:31 Dose: 600 mg Metoprolol Succinate (Toprol Xl) 25 mg PO BRK [facility] Last Admin: 07/04/17 08:15 Dose: 25 mg Multivitamins/Minerals (Therapeutic-M Tab) 1 tab PO 0800 [facility] Last Admin: 07/04/17 08:15 Dose: 1 tab Mupirocin (Bactroban Ointment) 0.5 gm TOP BID [facility] Last Admin: 07/04/17 10:15 Dose: 1 applic Nystatin (Nystop Topical Powder) 0 gm TOP BID [facility] Last Admin: 07/04/17 09:35 Dose: 1 applic Pantoprazole Sodium (Protonix Ec Tab) 40 mg PO 0600 [facility] Last Admin: 07/04/17 06:00 Dose: Not Given Sodium Bicarbonate (Sodium Bicarbonate Tab) 1,300 mg PO QID [facility] Last Admin: 07/04/17 14:12 Dose: 1,300 mg - Labs Labs: 07/03/17 07:30 07/03/17 07:30 PT 14.7 SECONDS (9.4-12.5) H 06/26/17 16:01 INR 1.28 (0.93-1.08) H 06/26/17 16:01 APTT 33.9 Seconds (25.1-36.5) 06/26/17 16:01 Attending/Attestation - Attestation I have personally seen and examined this patient.: Yes I have fully participated in the care of the patient.: Yes I have reviewed all pertinent clinical information, including history, physical exam and plan: Yes
--- NOTE | 2017-07-04 14:59 | CP.PCM.PN ---
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 No ACEI/ARB due to FREDY and hyperkalemia in past. maintain hemodynamics stable. resume Toprol XL 25 mg/day Monitor Input/Output, daily weights and renal function with basic metabolic panel resume Sodium bicarb 1300 mg qid, also on iron and MVI supplements. dose of ananesp 07/04/17, s/p PRBC transfusion continue with IVF as 0.45% saline , rate lowered to 50 ml/hr pending urine Na/K/Cl to calculate UAG Dose meds/antibiotics for improved GFR. Avoid fleets enema/magnesium based laxatives. Avoid nephrotoxins/NSAIDs/ iodinated contrast (unless needed emergently) Glycemic control Further work up/management as per primary team Thanks for allowing me to participate in care of your patient. Will follow patient with you. Please call if any Qs. 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 now readmitted for Sepsis with anemia and FREDY renal consult for FREDY management. Denies chest pain, palpitation, shortness of breath, leg swelling. says foot pain better Has chronic loose stool 2-3 times/day but better now a days. ROS: pt denies any new complaints. no CP/SOB. no pain abdomen General Appearance: Comfortable, in no acute respiratory distress, co- operative. thin built. Vitals reviewed and noted Head; Atraumatic, normocephalic ENT: no ulcers no thrush. Tongue is midline. Oropharynx: no rash or ulcers. Hard of hearing. Uses hearing aid. EYES: Pupils are equal, round and reactive to light accommodation. Eye muscles and extraocular movement intact. Sclera is anicteric. Neck; supple no lymphadenopathy, no thyromegaly or bruit Lungs: Normal respiratory rate/effort. Breath sounds bilateral equal and clear Heart: Increased rate. s1s2 normal. No rub or gallop. Extremities: no edema with wound dressed at feet. No varicose veins. Hand osteoarthritic deformities +. Neurological: Patient is alert, awake and oriented to person, place and time. No focal deficit. Strength bilateral appropriate and equal Skin: Warm and dry. Normal turgor. Palpitation: Normal elasticity for age. has rash in lower extremities Abdomen: Abdomen is soft. Bowel sounds +. There is no abdominal tenderness, no guarding/rigidity or organomegaly Psych: normal insight and normal affect/mood MSK: no joint tenderness or swelling. hands swelling noted : kidney or bladder not palpable Labs/imaging reviewed. Past medical history, past surgical history, family history, social history, allergy reviewed and noted as below Family hx: no hx of CKD. Rest non-contributory Work up: 09/13/2016: GN serologies all negative, scleroderma work up neg, SPEP/LUDY neg Renal sono: b/l cortical atrophy. Small 1 cm Rt kidney simple cyst. Objective - Vital Signs/Intake and Output Vital Signs (last 24 hours): Temp Pulse Resp BP Pulse Ox 98.1 F 103 H 20 121/65 100 07/04/17 06:00 07/04/17 08:15 07/04/17 06:00 07/04/17 08:15 07/04/17 06:00 Intake and Output: 07/04/17 07/04/17 06:59 18:59 Intake Total 840 600 Output Total 600 400 Balance 240 200 - Medications Medications: Current Medications Acetaminophen (Tylenol 325mg Tab) 650 mg PO Q6H PRN PRN Reason: Fever >100.4 F Last Admin: 06/27/17 19:06 Dose: 650 mg Collagenase (Santyl) 0 gm TOP DAILY [facility] Last Admin: 07/04/17 09:36 Dose: 1 applic Cyanocobalamin (Vitamin B12 1000 Mcg Tab) 500 mcg PO DAILY [facility] Last Admin: 07/04/17 09:32 Dose: 500 mcg Dextrose (Dextrose 50% Inj) 25 ml IVP ONCE PRN PRN Reason: Hypoglycemia Ferrous Sulfate (Feosol) 324 mg PO TID [facility] Last Admin: 07/04/17 14:12 Dose: 324 mg Folic Acid (Folic Acid) 1 mg PO DAILY [facility] Last Admin: 07/04/17 09:31 Dose: 1 mg Meropenem 250 mg/ Sodium (Chloride) 100 mls @ 100 mls/hr IVPB Q12 [facility] PRN Reason: Protocol Stop: 07/06/17 10:01 Last Admin: 07/04/17 10:15 Dose: 100 mls/hr Sodium Chloride (Sodium Chloride 0.45%) 1,000 mls @ 50 mls/hr IV .Q20H [facility] Insulin Human Regular (Humulin R Low) 0 units SC ACHS [facility] PRN Reason: Protocol Last Admin: 07/04/17 12:25 Dose: 4 units Linezolid (Zyvox) 600 mg PO BID [facility] PRN Reason: Protocol Stop: 07/06/17 10:01 Last Admin: 07/04/17 09:31 Dose: 600 mg Metoprolol Succinate (Toprol Xl) 25 mg PO BRK [facility] Last Admin: 07/04/17 08:15 Dose: 25 mg Multivitamins/Minerals (Therapeutic-M Tab) 1 tab PO 0800 [facility] Last Admin: 07/04/17 08:15 Dose: 1 tab Mupirocin (Bactroban Ointment) 0.5 gm TOP BID [facility] Last Admin: 07/04/17 10:15 Dose: 1 applic Nystatin (Nystop Topical Powder) 0 gm TOP BID [facility] Last Admin: 07/04/17 09:35 Dose: 1 applic Pantoprazole Sodium (Protonix Ec Tab) 40 mg PO 0600 [facility] Last Admin: 07/04/17 06:00 Dose: Not Given Sodium Bicarbonate (Sodium Bicarbonate Tab) 1,300 mg PO QID [facility] Last Admin: 07/04/17 14:12 Dose: 1,300 mg - Labs Labs: 07/03/17 07:30 07/03/17 07:30 PT 14.7 SECONDS (9.4-12.5) H 06/26/17 16:01 INR 1.28 (0.93-1.08) H 06/26/17 16:01 APTT 33.9 Seconds (25.1-36.5) 06/26/17 16:01
--- NOTE | 2017-07-04 15:39 | CP.PCM.DIS ---
<Natanael Allison - Last Filed: 07/04/17 15:35> Provider - Provider Date of Admission: 06/26/17 19:18 Attending physician: Luna Haque MD Primary care physician: Arden Galvez MD Consults: Nephrology: Dr. Reyes Hematology Oncology: Dr. Ledesma Podiatry: Dr. Raymond Infectious Disease: Dr. Castellano Time Spent in preparation of Discharge (in minutes): 45 Diagnosis - Discharge Diagnosis (1) Diabetic foot ulcer Status: Acute Priority: High (2) Renal insufficiency Status: Chronic (3) Urinary tract infection Status: Resolved (4) Anemia Status: Chronic Priority: Medium (5) Diabetic neuropathy Status: Chronic (6) Acute renal insufficiency Status: Acute Priority: Medium (7) Osteomyelitis Status: Acute Priority: High (8) Streptococcus group B infection Status: Acute (9) Diabetes mellitus Status: Chronic Priority: High Hospital Course - Lab Results Lab Results: Most Recent Lab Values WBC 10.3 10^3/ul (4.5-11.0) 07/03/17 07:30 RBC 3.21 10^6/uL (3.5-6.1) L 07/03/17 07:30 Hgb 9.7 g/dL (12.0-16.0) L 07/03/17 07:30 Hct 29.8 % (36.0-48.0) L 07/03/17 07:30 MCV 92.8 fl (80.0-105.0) 07/03/17 07:30 MCH 30.2 pg (25.0-35.0) 07/03/17 07:30 MCHC 32.6 g/dl (31.0-37.0) 07/03/17 07:30 RDW 15.0 % (11.5-14.5) H 07/03/17 07:30 Plt Count 282 10^3/uL (120.0-450.0) 07/03/17 07:30 MPV 9.4 fl (7.0-11.0) 07/03/17 07:30 Gran % 65.4 % (50.0-68.0) 07/03/17 07:30 Lymph % (Auto) 20.8 % (22.0-35.0) L 07/03/17 07:30 [place] % (Auto) 9.2 % (1.0-6.0) H 07/03/17 07:30 Eos % (Auto) 4.3 % (1.5-5.0) 07/03/17 07:30 Baso % (Auto) 0.3 % (0.0-3.0) 07/03/17 07:30 Gran # 6.73 (1.4-6.5) H 07/03/17 07:30 Lymph # (Auto) 2.1 (1.2-3.4) 07/03/17 07:30 [place] # (Auto) 1.0 (0.1-0.6) H 07/03/17 07:30 Eos # (Auto) 0.4 (0.0-0.7) 07/03/17 07:30 Baso # (Auto) 0.03 K/mm3 (0.0-2.0) 07/03/17 07:30 Neutrophils % (Manual) 84 % (50.0-70.0) H 06/27/17 07:00 Band Neutrophils % 12 % (0-2) H* 06/27/17 07:00 Lymphocytes % (Manual) 2 % (22.0-35.0) L 06/27/17 07:00 Monocytes % (Manual) TEST NOT PERFORMED 06/27/17 07:00 Eosinophils % (Manual) 2 % (0.0-3.0) 06/27/17 07:00 Platelet Evaluation Normal (NORMAL) 06/27/17 07:00 ESR 140 mm/hr (0.0-20.0) H 06/27/17 06:00 Retic Count 1.69 % (0.5-1.5) H 06/27/17 07:00 PT 14.7 SECONDS (9.4-12.5) H 06/26/17 16:01 INR 1.28 (0.93-1.08) H 06/26/17 16:01 APTT 33.9 Seconds (25.1-36.5) 06/26/17 16:01 pO2 48 mm/Hg (30-55) 06/26/17 16:01 VBG pH 7.30 (7.32-7.43) L 06/26/17 16:01 VBG pCO2 41.0 (40-60) 04/17/18 16:01 VBG HCO3 20.2 mmol/l (21-28) L 06/26/17 16:01 VBG Total CO2 21.5 mmol.L (22-28) L 06/26/17 16:01 VBG O2 Sat (Calc) 84.5 % (40-65) H 06/26/17 16:01 VBG Base Excess -5.9 mmol/L (0.0-2.0) L 06/26/17 16:01 VBG Potassium 4.8 mmol/L (3.6-5.2) 06/26/17 16:01 Sodium 141.0 mmol/L (132-148) 06/26/17 16:01 Chloride 112.0 mmol/L (98-107) H 06/26/17 16:01 Glucose 312 mg/dl (65-105) H 06/26/17 16:01 Lactate 1.7 mmol/L (0.7-2.1) 06/26/17 16:01 FiO2 21.0 % 06/26/17 16:01 Sodium 146 mmol/L (132-148) 07/03/17 07:30 Potassium 3.6 mmol/L (3.6-5.0) 07/03/17 07:30 Chloride 118 mmol/L (98-107) H 07/03/17 07:30 Carbon Dioxide 17 mmol/L (21-33) L 07/03/17 07:30 Anion Gap 15 (10-20) 07/03/17 07:30 BUN 14 mg/dL (7-21) 07/03/17 07:30 Creatinine 1.2 mg/dl (0.7-1.2) 07/03/17 07:30 Est GFR ( Amer) 56 07/03/17 07:30 Est GFR (Non-Af Amer) 46 07/03/17 07:30 POC Glucose (mg/dL) 335 mg/dL (65-110) H 07/04/17 11:37 Random Glucose 163 mg/dL (70-110) H 07/03/17 07:30 Hemoglobin A1c 7.3 % (4.2-6.5) H 06/27/17 07:00 Lactic Acid 1.5 mmol/L (0.7-2.1) 06/27/17 19:55 Calcium 8.4 mg/dL (8.4-10.5) 07/03/17 07:30 Phosphorus 2.9 mg/dL (2.5-4.5) 07/03/17 07:30 Magnesium 2.3 mg/dL (1.7-2.2) H 07/03/17 07:30 Iron 23 ug/dL (45-180) L 06/26/17 16:01 TIBC 189 ug/dL (265-497) L 06/26/17 16:01 % Saturation 12 % (20-55) L 06/26/17 16:01 Ferritin 1790.0 ng/mL 06/26/17 16:01 Total Bilirubin 0.4 mg/dL (0.2-1.3) 07/03/17 07:30 AST 47 U/L (14-36) H D 07/03/17 07:30 ALT 79 U/L (7-56) H 07/03/17 07:30 Alkaline Phosphatase 152 U/L (38-126) H 07/03/17 07:30 Total Protein 6.1 g/dL (5.8-8.3) 07/03/17 07:30 Albumin 3.0 g/dL (3.0-4.8) 07/03/17 07:30 Globulin 3.1 gm/dL 07/03/17 07:30 Albumin/Globulin Ratio 1.0 (1.1-1.8) L 07/03/17 07:30 Vitamin B12 > 1000 pg/mL (239-931) H 06/27/17 07:00 Folate > 20.0 ng/mL 06/27/17 07:00 Procalcitonin 12.34 NG/ML (0.19-0.49) H 06/27/17 07:00 Venous Blood Potassium 4.8 mmol/L (3.6-5.2) 06/26/17 16:01 Urine Color Yellow (YELLOW) 07/01/17 00:30 Urine Appearance Sl cloudy (CLEAR) 07/01/17 00:30 Urine pH 7.5 (4.7-8.0) 07/01/17 00:30 Ur Specific [employer] 1.010 (1.005-1.035) 07/01/17 00:30 Urine Protein Negative mg/dL (<30 mg/dL) 07/01/17 00:30 Urine Glucose (UA) 250 mg/dL (NEGATIVE) H 07/01/17 00:30 Urine Ketones Negative mg/dL (NEGATIVE) 07/01/17 00:30 Urine Blood Trace-intact (NEGATIVE) H 07/01/17 00:30 Urine Nitrate Negative (NEGATIVE) 07/01/17 00:30 Urine Bilirubin Negative (NEGATIVE) 07/01/17 00:30 Urine Urobilinogen 0.2 E.U./dL (<1 E.U./dL) 07/01/17 00:30 Ur Leukocyte Esterase Moderate Altaf/uL (NEGATIVE) H 07/01/17 00:30 Urine RBC 0 - 2 /hpf (0-2) 07/01/17 00:30 Urine WBC 5 - 10 /hpf (0-6) 07/01/17 00:30 Ur Epithelial Cells 0 - 2 /hpf (0-5) 07/01/17 00:30 Urine Bacteria Few (NEG) 07/01/17 00:30 Ur Random Creatinine 47 mg/dL 06/27/17 06:40 Ur Random Sodium 88 meq/L 07/01/17 00:30 Ur Random Potassium 9.7 meq/L 07/01/17 00:30 Blood Type B POSITIVE 06/26/17 17:39 Antibody Screen Negative 06/26/17 17:39 Crossmatch See Detail 06/26/17 17:39 BBK History Checked Patient has bt 06/26/17 17:39 - Hospital Course Hospital Course: Patient is a 61 year old female with past medical history that includes DM2, CAD , CKD, GERD, and osteomyelitis of right 2nd metatarsal status post resection who presented [place] [facility] care center for a nonhealing ulcer on the lateral aspect of her right foot. Patient was evaluated in ED and found to be febrile with rectal temp of 102.4, elevated HR, hypotensive, hemoglobin 6.9, elevated BUN/Cr and urinalysis showing positive leukocyte esterase. Patient had venous duplex of her lower extremity which were negative for DVT of her right leg, Chest xray which showed absence of cardiomegaly or inflitrates. X ray of her right foot was negative for acute fracture or bone changes. Patient was transfused 1 liter of fluids and admitted to hospital service. While on floor patient received two units of pRBC. Nephrology, Podiatry, Infectious disease, Hematology/Oncology were consulted. Nephrology evaluated the patient and placed her on fluids and repleted electrolytes. Hematology and oncology evaluated the patient and assessed her to have anemia secondary to her CKD, anemia of chronic disease and recommended further workup and for outpatient follow up. Gastroenterology evaluated the patient and recommended liquid diet as tolerated, continuation of antibiotic therapy and plans for EGD and colonoscopy for evaluation of unexplained iron deficiency anemia. Patient was unable to tolerate bowel prep and thus only had EGD showing gastritis, hyperplastic polyp that was removed and clipped. Podiatry evaluated the patient and continued IV antibiotics per infectious disease and conducted wound care on feet bilaterally. Patient was recommended to have MRI of feet but due to inpatient EGD with clip MRI was held for 7 days. Patient went for bone scan of lower extremity and was found to have acute osteomyelitis of the right calcaneus. Podiatry recommended further wound care without planned intervention during this hospital stay and to follow up outpatient at wound care center. Infectious disease was consulted and evaluated the patient and placed her on zyvox and merrem for OM with coverage of previous UTI and urine culture showing e. coli as well as coverage of her wound culture that grew MRSA and beta hemolytic streo group B and recommended 4 to 6 weeks of antibiotics with weekly ESR, CMP, CBC, CRP for treatment of OM. Patient was evaluated by Physical therapy and was recommended for outpatient [facility]. Patient was accepted and placed at [facility]. Discharge planning and appropriate outpatient follow up was discussed with patient who was in understanding and agreeable. - Date & Time of H&P Date of H&P: 06/27/17 Time of H&P: 00:50 Discharge Exam - Head Exam Head Exam: ATRAUMATIC, NORMAL INSPECTION, NORMOCEPHALIC - Eye Exam Eye Exam: EOMI, PERRL - Respiratory Exam Respiratory Exam: Clear to PA & Lateral, NORMAL BREATHING PATTERN, UNREMARKABLE. absent: Rales, Wheezes - Cardiovascular Exam Cardiovascular Exam: REGULAR RHYTHM, +S1, +S2 - GI/Abdominal Exam GI & Abdominal Exam: Normal Bowel Sounds, Soft. absent: Guarding, Tenderness - Extremities Exam Extremities exam: normal capillary refill, pedal pulses present - Neurological Exam Neurological exam: Alert, Oriented x3 - Psychiatric Exam Psychiatric exam: Normal Affect, Normal Mood - Skin Skin Exam: Dry, Warm Additional comments: posterior lumbosacral rash noted on backside, erythematous without purulent drainage Discharge Plan - Follow Up Plan Condition: FAIR Disposition: HOME/ ROUTINE Instructions: Heart Healthy Diet, Methicillin-Resistant Staphylococcus aureus ( MRSA), Preventing Falls in the Older Adult, Wound Care (DC), Why Vaccines Are Important for Everyone Additional Instructions: Follow up with primary care physician after discharge form [facility] Take medications as prescribed to you - Merrem and Zyvox for 5 more weeks (08/08/2017) Adhere to wound care as per Podiatry Referrals: Arden Galvez MD [Primary Care Provider] - <Luna Haque - Last Filed: 07/04/17 16:14> Provider - Provider Date of Admission: 06/26/17 19:18 Attending physician: Luna Haque MD Primary care physician: Arden Galvez MD Hospital Course - Lab Results Lab Results: Most Recent Lab Values WBC 10.3 10^3/ul (4.5-11.0) 07/03/17 07:30 RBC 3.21 10^6/uL (3.5-6.1) L 07/03/17 07:30 Hgb 9.7 g/dL (12.0-16.0) L 07/03/17 07:30 Hct 29.8 % (36.0-48.0) L 07/03/17 07:30 MCV 92.8 fl (80.0-105.0) 07/03/17 07:30 MCH 30.2 pg (25.0-35.0) 07/03/17 07:30 MCHC 32.6 g/dl (31.0-37.0) 07/03/17 07:30 RDW 15.0 % (11.5-14.5) H 07/03/17 07:30 Plt Count 282 10^3/uL (120.0-450.0) 07/03/17 07:30 MPV 9.4 fl (7.0-11.0) 07/03/17 07:30 Gran % 65.4 % (50.0-68.0) 07/03/17 07:30 Lymph % (Auto) 20.8 % (22.0-35.0) L 07/03/17 07:30 [place] % (Auto) 9.2 % (1.0-6.0) H 07/03/17 07:30 Eos % (Auto) 4.3 % (1.5-5.0) 07/03/17 07:30 Baso % (Auto) 0.3 % (0.0-3.0) 07/03/17 07:30 Gran # 6.73 (1.4-6.5) H 07/03/17 07:30 Lymph # (Auto) 2.1 (1.2-3.4) 07/03/17 07:30 [place] # (Auto) 1.0 (0.1-0.6) H 07/03/17 07:30 Eos # (Auto) 0.4 (0.0-0.7) 07/03/17 07:30 Baso # (Auto) 0.03 K/mm3 (0.0-2.0) 07/03/17 07:30 Neutrophils % (Manual) 84 % (50.0-70.0) H 06/27/17 07:00 Band Neutrophils % 12 % (0-2) H* 06/27/17 07:00 Lymphocytes % (Manual) 2 % (22.0-35.0) L 06/27/17 07:00 Monocytes % (Manual) TEST NOT PERFORMED 06/27/17 07:00 Eosinophils % (Manual) 2 % (0.0-3.0) 06/27/17 07:00 Platelet Evaluation Normal (NORMAL) 06/27/17 07:00 ESR 140 mm/hr (0.0-20.0) H 06/27/17 06:00 Retic Count 1.69 % (0.5-1.5) H 06/27/17 07:00 PT 14.7 SECONDS (9.4-12.5) H 06/26/17 16:01 INR 1.28 (0.93-1.08) H 06/26/17 16:01 APTT 33.9 Seconds (25.1-36.5) 06/26/17 16:01 pO2 48 mm/Hg (30-55) 06/26/17 16:01 VBG pH 7.30 (7.32-7.43) L 06/26/17 16:01 VBG pCO2 41.0 (40-60) 06/26/17 16:01 VBG HCO3 20.2 mmol/l (21-28) L 06/26/17 16:01 VBG Total CO2 21.5 mmol.L (22-28) L 06/26/17 16:01 VBG O2 Sat (Calc) 84.5 % (40-65) H 06/26/17 16:01 VBG Base Excess -5.9 mmol/L (0.0-2.0) L 06/26/17 16:01 VBG Potassium 4.8 mmol/L (3.6-5.2) 06/26/17 16:01 Sodium 141.0 mmol/L (132-148) 06/26/17 16:01 Chloride 112.0 mmol/L (98-107) H 06/26/17 16:01 Glucose 312 mg/dl (65-105) H 06/26/17 16:01 Lactate 1.7 mmol/L (0.7-2.1) 06/26/17 16:01 FiO2 21.0 % 06/26/17 16:01 Sodium 146 mmol/L (132-148) 07/03/17 07:30 Potassium 3.6 mmol/L (3.6-5.0) 07/03/17 07:30 Chloride 118 mmol/L (98-107) H 07/03/17 07:30 Carbon Dioxide 17 mmol/L (21-33) L 07/03/17 07:30 Anion Gap 15 (10-20) 07/03/17 07:30 BUN 14 mg/dL (7-21) 07/03/17 07:30 Creatinine 1.2 mg/dl (0.7-1.2) 07/03/17 07:30 Est GFR ( Amer) 56 07/03/17 07:30 Est GFR (Non-Af Amer) 46 07/03/17 07:30 POC Glucose (mg/dL) 335 mg/dL (65-110) H 07/04/17 11:37 Random Glucose 163 mg/dL (70-110) H 07/03/17 07:30 Hemoglobin A1c 7.3 % (4.2-6.5) H 06/27/17 07:00 Lactic Acid 1.5 mmol/L (0.7-2.1) 06/27/17 19:55 Calcium 8.4 mg/dL (8.4-10.5) 07/03/17 07:30 Phosphorus 2.9 mg/dL (2.5-4.5) 07/03/17 07:30 Magnesium 2.3 mg/dL (1.7-2.2) H 07/03/17 07:30 Iron 23 ug/dL (45-180) L 06/26/17 16:01 TIBC 189 ug/dL (265-497) L 06/26/17 16:01 % Saturation 12 % (20-55) L 06/26/17 16:01 Ferritin 1790.0 ng/mL 06/26/17 16:01 Total Bilirubin 0.4 mg/dL (0.2-1.3) 07/03/17 07:30 AST 47 U/L (14-36) H D 07/03/17 07:30 ALT 79 U/L (7-56) H 07/03/17 07:30 Alkaline Phosphatase 152 U/L (38-126) H 07/03/17 07:30 Total Protein 6.1 g/dL (5.8-8.3) 07/03/17 07:30 Albumin 3.0 g/dL (3.0-4.8) 07/03/17 07:30 Globulin 3.1 gm/dL 07/03/17 07:30 Albumin/Globulin Ratio 1.0 (1.1-1.8) L 07/03/17 07:30 Vitamin B12 > 1000 pg/mL (239-931) H 06/27/17 07:00 Folate > 20.0 ng/mL 06/27/17 07:00 Procalcitonin 12.34 NG/ML (0.19-0.49) H 06/27/17 07:00 Venous Blood Potassium 4.8 mmol/L (3.6-5.2) 06/26/17 16:01 Urine Color Yellow (YELLOW) 07/01/17 00:30 Urine Appearance Sl cloudy (CLEAR) 07/01/17 00:30 Urine pH 7.5 (4.7-8.0) 07/01/17 00:30 Ur Specific [employer] 1.010 (1.005-1.035) 07/01/17 00:30 Urine Protein Negative mg/dL (<30 mg/dL) 07/01/17 00:30 Urine Glucose (UA) 250 mg/dL (NEGATIVE) H 07/01/17 00:30 Urine Ketones Negative mg/dL (NEGATIVE) 07/01/17 00:30 Urine Blood Trace-intact (NEGATIVE) H 07/01/17 00:30 Urine Nitrate Negative (NEGATIVE) 07/01/17 00:30 Urine Bilirubin Negative (NEGATIVE) 07/01/17 00:30 Urine Urobilinogen 0.2 E.U./dL (<1 E.U./dL) 07/01/17 00:30 Ur Leukocyte Esterase Moderate Altaf/uL (NEGATIVE) H 07/01/17 00:30 Urine RBC 0 - 2 /hpf (0-2) 07/01/17 00:30 Urine WBC 5 - 10 /hpf (0-6) 07/01/17 00:30 Ur Epithelial Cells 0 - 2 /hpf (0-5) 07/01/17 00:30 Urine Bacteria Few (NEG) 07/01/17 00:30 Ur Random Creatinine 47 mg/dL 06/27/17 06:40 Ur Random Sodium 88 meq/L 07/01/17 00:30 Ur Random Potassium 9.7 meq/L 07/01/17 00:30 Blood Type B POSITIVE 06/26/17 17:39 Antibody Screen Negative 06/26/17 17:39 Crossmatch See Detail 06/26/17 17:39 BBK History Checked Patient has bt 06/26/17 17:39 Attending/Attestation - Attestation I have personally seen and examined this patient.: Yes I have fully participated in the care of the patient.: Yes I have reviewed all pertinent clinical information, including history, physical exam and plan: Yes Notes (Text): 07/04/17 16:13 61 year old female with past medical history of PVD, CKD, hypertension and anemia who presented with sepsis secondary to infected heel ulcer and E Coli UTI. Bone scan was suggestive of osteomyelitis. She is on iv antibiotics. She was followed by ID and podiatry. Her anemia has been stable s/p 2 units prbc transfusion. GI evaluation was appreciated and she is s/p EGD which showed Chapito's esophagus, gastritis and gastric polyp s/p polypectomy. Nephrology was also following for acute on chronic kidney disease which has improved. Patient will be discharged to [facility] to complete 4-6 weeks of antibiotics with weekly labs. Follow up with pmd and wound care center upon discharge. Luna Haque MD Hospitalist.
[2017-07-04 15:40] VITALS: BP 150/68; PULSE 96
--- NOTE | 2017-07-04 17:10 | CP.PCM.PN ---
Subjective - Date & Time of Evaluation Date of Evaluation: 07/04/17 Time of Evaluation: 12:40 - Subjective Subjective: No fevers, not in distress, right leg and foot is feeling a little better. Objective - Vital Signs/Intake and Output Vital Signs (last 24 hours): Temp Pulse Resp BP Pulse Ox 98.1 F 96 H 20 150/68 100 07/04/17 06:00 07/04/17 14:00 07/04/17 06:00 07/04/17 14:00 07/04/17 06:00 Intake and Output: 07/04/17 07/04/17 06:59 18:59 Intake Total 840 600 Output Total 600 400 Balance 240 200 - Labs Labs: 07/03/17 07:30 07/03/17 07:30 PT 14.7 SECONDS (9.4-12.5) H 06/26/17 16:01 INR 1.28 (0.93-1.08) H 06/26/17 16:01 APTT 33.9 Seconds (25.1-36.5) 06/26/17 16:01 - Constitutional Appears: Chronically Ill - Head Exam Head Exam: NORMAL INSPECTION - Neck Exam Neck Exam: absent: Meningismus - Respiratory Exam Respiratory Exam: Decreased Breath Sounds - Cardiovascular Exam Cardiovascular Exam: +S1, +S2 - GI/Abdominal Exam GI & Abdominal Exam: Soft. absent: Tenderness - Extremities Exam Additional comments: right foot and leg with dressings in place Assessment and Plan - Assessment and Plan (Free Text) Plan: Assessment severe sepsis due to right foot cellulitis with Group B Strep and Methicilin- resistant Staph aureus R/O acute on chronic osteomyelitis with history of partial resection of right calcaneus history of Acute osteomyelitis of the left foot; grew beta hemolytic strep DM Plan continue Zyvox and Merrem; reviewed bone scan results - patient will need at least 4-6 weeks of antibiotics with weekly ESR, CRP, CBC, CMP with outpatient follow up with Podiatry
== END 2017-07-04 16:42 | DRG 584 ==
LOC: ED 14:48 → ERH 19:18 → 2RSO 06-27 00:19 → 5RNO 06-29 17:00
PROVIDERS: ADMIT Internal Medicine; ATTEND Internal Medicine
PROC: 30233N1 Transfusion of Nonautologous Red Blood Cells into Peripheral Vein, Percutaneous Approach (ICD-10-PCS; 2017-06-26)
PROC: 0DB68ZZ Excision of Stomach, Via Natural or Artificial Opening Endoscopic (ICD-10-PCS; 2017-06-28)
PROC: 0DB58ZX Excision of Esophagus, Via Natural or Artificial Opening Endoscopic, Diagnostic (ICD-10-PCS; 2017-06-28)
PROC: 0DB78ZX Excision of Stomach, Pylorus, Via Natural or Artificial Opening Endoscopic, Diagnostic (ICD-10-PCS; 2017-06-28)
PROC: 02HV33Z Insertion of Infusion Device into Superior Vena Cava, Percutaneous Approach (ICD-10-PCS; principal; 2017-06-29)
PROC: B548ZZA Ultrasonography of Superior Vena Cava, Guidance (ICD-10-PCS; 2017-06-29)
DX: A41.9 Sepsis, unspecified organism (principal); L03.115 Cellulitis of right lower limb; M86.171 Other acute osteomyelitis, right ankle and foot; L97.519 Non-pressure chronic ulcer of other part of right foot with unspecified severity; E11.621 Type 2 diabetes mellitus with foot ulcer; N17.9 Acute kidney failure, unspecified; E11.22 Type 2 diabetes mellitus with diabetic chronic kidney disease; E11.51 Type 2 diabetes mellitus with diabetic peripheral angiopathy without gangrene; N18.3 Chronic kidney disease, stage 3 (moderate); E87.2 Acidosis; K22.2 Esophageal obstruction; E11.319 Type 2 diabetes mellitus with unspecified diabetic retinopathy without macular edema; E11.36 Type 2 diabetes mellitus with diabetic cataract; R64 Cachexia; N39.0 Urinary tract infection, site not specified; E87.0 Hyperosmolality and hypernatremia; L97.529 Non-pressure chronic ulcer of other part of left foot with unspecified severity; E87.6 Hypokalemia; E11.65 Type 2 diabetes mellitus with hyperglycemia; E11.40 Type 2 diabetes mellitus with diabetic neuropathy, unspecified; R65.20 Severe sepsis without septic shock; K21.9 Gastro-esophageal reflux disease without esophagitis; I25.10 Atherosclerotic heart disease of native coronary artery without angina pectoris; D50.9 Iron deficiency anemia, unspecified; D63.1 Anemia in chronic kidney disease; I12.9 Hypertensive chronic kidney disease with stage 1 through stage 4 chronic kidney disease, or unspecified chronic kidney disease; N25.81 Secondary hyperparathyroidism of renal origin; E55.9 Vitamin D deficiency, unspecified; E11.69 Type 2 diabetes mellitus with other specified complication; E86.0 Dehydration; H91.90 Unspecified hearing loss, unspecified ear; K31.7 Polyp of stomach and duodenum; K29.70 Gastritis, unspecified, without bleeding; M19.049 Primary osteoarthritis, unspecified hand; B96.20 Unspecified Escherichia coli [E. coli] as the cause of diseases classified elsewhere; E83.42 Hypomagnesemia; B95.1 Streptococcus, group B, as the cause of diseases classified elsewhere; Z85.828 Personal history of other malignant neoplasm of skin; Z89.421 Acquired absence of other right toe(s); Z89.412 Acquired absence of left great toe; Z88.0 Allergy status to penicillin

== ENCOUNTER 2017-10-30 14:37 | Emergency (ER) | payer MEDICAID ==
[2017-10-30 14:37] VITALS: PULSE 122
--- NOTE | 2017-10-30 14:45 | PCM.FALL ---
<Natanael Maria - Last Filed: 10/30/17 14:42> Post Fall Progress Note - Post Fall Fall Date: 10/30/17 Fall Time: 14:28 Description of Fall: Patient was leaving hospital after wound care visit. Patient lost her footing while going out the door. Patient hit her head during the fall and suffered an abrasion to her left paraorbital region. Patient denies any CHAMBERS, dizziness, LOC, near-sycnope/syncope prior to fall. Patient admits to some pain at the site of the abrasion. Patient denies CP, SOB, n/v/d, abdominal pain, fever, or chills. - Post Fall Exam Skull Exam: Positive for: Scalp hematoma (left paraorbital abrasion ~2-3 cm) Eye Exam: Negative for: Pupils equal, Pupils reactive Ear Exam: Negative for: Discharge, Bleeding Nose Exam: Negative for: Discharge, Bleeding Skin Exam: Negative for: Colour, Lacerations, Grazes, Bruising Mouth Exam: Negative for: Tongue bitten, Teeth dislodge Neck Exam: Negative for: Tenderness, Tingling, Weakness Spinal Exam: Negative for: Tenderness, Tingling, Weakness Chest Exam: Negative for: Difficulty breathing, Tenderness in collar bones, Tenderness in ribs Abdomen Exam: Negative for: Tenderness Pelvic Exam: Negative for: Tenderness, Hematuria Arm Exam: Negative for: Deformity, Alteration in range of movement Leg Exam: Negative for: Deformity, Alteration in range of movement Impression/Plan: 62 yo F s/p mechanical fall. Plan: - Transfer to ED - Signed out to ED attending <Jaun Rodríguez - Last Filed: 10/31/17 13:57> Post Fall Progress Note - Post Fall Exam Vital Sign: Temp Pulse Resp BP Pulse Ox 97.5 F L 82 18 142/89 100 10/30/17 17:23 10/30/17 17:23 10/30/17 17:23 10/30/17 17:23 10/30/17 17:23 Attending/Attestation - Attestation I have personally seen and examined this patient.: Yes I have fully participated in the care of the patient.: Yes I have reviewed all pertinent clinical information, including history, physical exam and plan: Yes Notes (Text): 10/31/17 13:55 attending note; Patient seen and examined with resident. Patient had weakness slip and fall in the lobby of [facility]. Patient is alert and awake. Had an aberration over the left eyebrow. Minimal bleeding noted. Patient is able to talk and give history. Denies any chest pain, shortness of breath. Denies any loss of consciousness. Patient was transferred to the ER. Vitals stable. Signed out to ER attending for further care.
[2017-10-30 14:48] VITALS: RESP 18; BMI 20.1
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
--- NOTE | 2017-10-30 16:18 | CT ---
Date of service: 10/30/2017 PROCEDURE: CT HEAD WITHOUT CONTRAST. HISTORY: s/p head injury COMPARISON: None available. TECHNIQUE: Axial computed tomography images were obtained through the head/brain without intravenous contrast. Radiation dose: Total exam DLP = 677.0 mGy-cm. This CT exam was performed using one or more of the following dose reduction techniques: Automated exposure control, adjustment of the mA and/or kV according to patient size, and/or use of iterative reconstruction technique. FINDINGS: HEMORRHAGE: No intracranial hemorrhage. BRAIN: Little interval change in left frontal parafalcine partially calcified meningioma measuring 1.4 x 0 0.9 cm and right posterior fossa partially calcified meningioma measuring 1.4 x 2.0 cm. There is no mass effect or abnormal extra-axial fluid collection. There is no territorial infarction. The midline sagittal structures are normal. VENTRICLES: Unremarkable. No hydrocephalus. CALVARIUM: There is moderate hyperostosis frontalis interna.There is no calvarial fracture or extracranial soft tissue swelling. PARANASAL SINUSES: Mild mucosal thickening in the left posterior ethmoid air cells. The remaining included paranasal sinuses are clear. MASTOID AIR CELLS: The right mastoid air cells are clear. The left mastoid air cells are underdeveloped. OTHER FINDINGS: None. IMPRESSION: No acute intracranial abnormality. Little interval change in left frontal and right posterior fossa are partially calcified meningiomas.
[2017-10-30] MEDS ORDERED: TDAP Vaccine 0.5 mL Syr IM ONE (16:30)
[2017-10-30 17:36] VITALS: BP 142/89; PULSE 82; TEMP 97.5; O2SAT 100
== END 2017-10-30 17:23 | disposition home or self-care (01) ==
LOC: ED 14:37
DX: S01.112A Laceration without foreign body of left eyelid and periocular area, initial encounter (principal); W01.0XXA Fall on same level from slipping, tripping and stumbling without subsequent striking against object, initial encounter; Y92.238 Other place in hospital as the place of occurrence of the external cause; Z23 Encounter for immunization

== ENCOUNTER 2018-01-26 18:47 | Inpatient (IN) | payer MEDICAID ==
[2018-01-26 18:48] VITALS: PULSE 122
[2018-01-26 18:50] VITALS: BMI 16.7
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
[2018-01-26 19:55] LABS: BASO # 0.01 K/mm3 (0.0-2.0); BASO % 0.1 % (0.0-3.0); EOS # 0.2 (0.0-0.7); GRAN # 7.01 (1.4-6.5); GRAN % 66.2 % (50.0-68.0); HEMOGLOBIN 7.7 g/dL (12.0-16.0); LYMPH # 1.9 (1.2-3.4); LYMPH % 18.1 % (22.0-35.0); MEAN CORPUSCULAR HEMOGLOBIN 29.7 pg (25.0-35.0); MEAN CORPUSCULAR HGB CONC 31.3 g/dl (31.0-37.0); MEAN PLATELET VOLUME 9.8 fl (7.0-11.0); MONO # 1.4 (0.1-0.6); MONO % 13.6 % (1.0-6.0); RBC 2.59 10^6/uL (3.5-6.1); RED CELL DISTRIBUTION WIDTH 14.2 % (11.5-14.5); WHITE BLOOD COUNT 10.6 10^3/uL (4.5-11.0)
[2018-01-26 20:00] LABS: INR 1.15; PARTIAL THROMBOPLASTIN TIME 27.8 Seconds (25.1-36.5); PROTHROMBIN TIME 13.1 SECONDS (9.4-12.5)
[2018-01-26] MEDS: Sodium Chloride 0.9% 1,000 ML IV SCH (20:08)
[2018-01-26 20:11] LABS: GFR NON-AFRICAN AMERICAN 27
[2018-01-26 20:12] LABS: ALB/GLOB RATIO 1.3 (1.1-1.8); ALBUMIN 4.2 g/dL (3.0-4.8); ALT/SGPT 169 U/L (7-56); AST/SGOT 98 U/L (14-36); BLOOD UREA NITROGEN 41 mg/dL (7-21); CALCIUM 9.7 mg/dL (8.4-10.5); HDL CHOLESTEROL 44 mg/dL (29-60); LDL CHOLESTEROL 85 mg/dL (0-129)
[2018-01-26 20:15] LABS: TROPONIN I < 0.01 ng/mL
[2018-01-26] MEDS ORDERED: Sod Polystyrene Sulf 15 gm/60 ml Susp PO STA (20:27)
[2018-01-26 22:40] LABS: IRON 28 ug/dL (45-180)
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
[2018-01-26 22:49] LABS: % IRON SATURATION 12 % (20-55); TOTAL IRON BINDING CAPACITY 236 ug/dL (265-497)
[2018-01-26] MEDS ORDERED: Dextrose 50% SYRINGE Inj (50 ml) IVP ONE (23:04)
[2018-01-26] MEDS ORDERED: Insulin Regular 1 UNITS/0.01 ML ML SC ONE (23:04)
[2018-01-27 02:23] LABS: CALCIUM 9.5 mg/dL (8.4-10.5)
[2018-01-27 05:54] LABS: BASO # 0.01 K/mm3 (0.0-2.0); BASO % 0.1 % (0.0-3.0); EOS # 0.2 (0.0-0.7); EOS % 2.6 % (1.5-5.0); GRAN # 4.83 (1.4-6.5); GRAN % 60.4 % (50.0-68.0); HEMOGLOBIN 7.3 g/dL (12.0-16.0); LYMPH # 1.8 (1.2-3.4); LYMPH % 22.1 % (22.0-35.0); MEAN CELL VOLUME 96.3 fl (80.0-105.0); MEAN CORPUSCULAR HEMOGLOBIN 29.9 pg (25.0-35.0); MEAN CORPUSCULAR HGB CONC 31.1 g/dl (31.0-37.0); MEAN PLATELET VOLUME 9.9 fl (7.0-11.0); MONO # 1.2 (0.1-0.6); MONO % 14.8 % (1.0-6.0); PLATELET COUNT 232 10^3/uL (120.0-450.0); RBC 2.44 10^6/uL (3.5-6.1); RED CELL DISTRIBUTION WIDTH 14.3 % (11.5-14.5)
[2018-01-27 06:08] LABS: LDL CHOLESTEROL 76 mg/dL (0-129)
[2018-01-27 06:39] LABS: ALB/GLOB RATIO 1.1 (1.1-1.8); ALBUMIN 3.7 g/dL (3.0-4.8); ALT/SGPT 138 U/L (7-56); AST/SGOT 61 U/L (14-36); BLOOD UREA NITROGEN 32 mg/dL (7-21); CALCIUM 9.1 mg/dL (8.4-10.5); GFR NON-AFRICAN AMERICAN 27; HDL CHOLESTEROL 35 mg/dL (29-60)
[2018-01-27] MEDS: Pantoprazole 40 mg EC Tab PO SCH (06:42)
[2018-01-27] MEDS: Sodium Chloride 0.9% 1,000 ML IV SCH ×2 (06:45→17:40)
--- NOTE | 2018-01-27 08:56 | CARD ---
APPROVED REPORT Date of service: 01/26/2018 EKG Measurement Heart [id number] <Conclusion> Sinus tachycardia Otherwise normal ECG
--- NOTE | 2018-01-27 09:28 | RAD ---
HISTORY: Code Stroke COMPARISON: Chest x-ray performed 06/26/17 TECHNIQUE: Chest, one view. FINDINGS: LUNGS: No focal consolidation. Please note that chest x-ray has limited sensitivity for the detection of pulmonary masses. PLEURA: No significant pleural effusion identified. No definite pneumothorax . CARDIOVASCULAR: Heart size appears within normal limits. Atherosclerotic calcification present. OSSEOUS STRUCTURES: Degenerative changes of the spine. VISUALIZED UPPER ABDOMEN: Cholecystectomy clips. OTHER FINDINGS: None. IMPRESSION: No focal consolidation.
--- NOTE | 2018-01-27 10:20 | CT ---
Date of service: 01/26/2018 PROCEDURE: CT HEAD WITHOUT CONTRAST. HISTORY: Code Stroke COMPARISON: Noncontrast head CT performed 10/30/17 TECHNIQUE: Axial computed tomography images were obtained through the head/brain without intravenous contrast. Radiation dose: Total exam DLP = 960.25 mGy-cm. This CT exam was performed using one or more of the following dose reduction techniques: Automated exposure control, adjustment of the mA and/or kV according to patient size, and/or use of iterative reconstruction technique. FINDINGS: HEMORRHAGE: No intracranial hemorrhage. BRAIN: No mass effect or edema. Small chronic appearing left basal ganglia hypodensity. The mejia-white matter differentiation appears intact. Please note that MRI with diffusion imaging is more sensitive in the detection of acute ischemic event. Re-identified calcified left frontal and right posterior fossa masses measure approximately 1.6 x 1.4 cm and 2.0 x 1.5 cm, respectively; these masses appear consistent with meningiomas. VENTRICLES: No hydrocephalus. CALVARIUM: Unremarkable. PARANASAL SINUSES: Unremarkable as visualized. No significant inflammatory changes. MASTOID AIR CELLS: Under aeration of the left mastoid air cells; correlate for history of mastoiditis. The right mastoid air cells appear clear. OTHER FINDINGS: None. IMPRESSION: Chronic left basal ganglia hypodensity consistent with lacunar infarct. Please note that MRI with diffusion imaging is more sensitive in the detection of acute ischemic event. Left frontal and right posterior fossa mass is re-identified in remain consistent with meningiomas. Follow-up MRI without and with IV contrast suggested for outpatient follow-up if indicated. Preliminary impression was provided by [employer].
[2018-01-27 10:28] LABS: IRON 25 ug/dL (45-180)
[2018-01-27 10:37] LABS: % IRON SATURATION 11 % (20-55); TOTAL IRON BINDING CAPACITY 224 ug/dL (265-497)
[2018-01-27] MEDS: Insulin Reg-MEDIUM-Coverage SC SCH ×4 (10:43→21:55)
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
[2018-01-27 11:45] LABS: TRANSFERRIN 161.49 mg/dL (206-381)
[2018-01-27 12:42] LABS: FOLATE > 20.0 ng/mL
--- NOTE | 2018-01-27 13:18 | CP.PCM.PN ---
<Iris Espinal - Last Filed: 01/27/18 16:14> Subjective - Date & Time of Evaluation Date of Evaluation: 01/27/18 Time of Evaluation: 13:04 - Subjective Subjective: Iris Espinal DO, PGY-1 Medicine Progress Note for Dr. Alonzo: Pt was seen and examined this AM at bedside. Pt states that she is feeling better than when she came in yesterday. She denies having any acute overnight events. She states that at this time she is not having any issues with swallowing, slurring speech or weakness. She states that she is not having any headaches, weakness, lightheadedness, dizziness, numbness, tingling, chest pain, palpitations, SOB, cough, n/v, c/d, or pain. She denies any other acute complaints at this time. Objective - Vital Signs/Intake and Output Vital Signs (last 24 hours): Temp Pulse Resp BP Pulse Ox 98 F 110 H 19 154/63 H 99 01/27/18 12:00 01/27/18 12:00 01/27/18 12:00 01/27/18 12:00 01/27/18 06:00 Intake and Output: 01/27/18 01/27/18 06:59 18:59 Output Total 400 Balance -400 - Medications Medications: Current Medications Aspirin (Ecotrin) 81 mg PO DAILY [facility] Last Admin: 01/27/18 10:56 Dose: 81 mg Heparin Sodium (Porcine) (Heparin) 5,000 units SC Q8 [facility]; Protocol Last Admin: 01/27/18 06:37 Dose: 5,000 units Sodium Chloride (Sodium Chloride 0.9%) 1,000 mls @ 100 mls/hr IV .Q10H [facility] Last Admin: 01/27/18 06:45 Dose: 100 mls/hr Insulin Human Regular (Humulin R Med) 0 units SC ACHS [facility]; Protocol Last Admin: 01/27/18 10:43 Dose: Not Given Lorazepam (Ativan) 1 mg IVP Q4H PRN; Protocol PRN Reason: Seizure activity Pantoprazole Sodium (Protonix Ec Tab) 40 mg PO 0600 [facility] Last Admin: 01/27/18 06:42 Dose: Not Given - Labs Labs: 01/27/18 05:30 01/27/18 05:30 PT 13.1 SECONDS (9.4-12.5) H 01/26/18 19:44 INR 1.15 01/26/18 19:44 APTT 27.8 Seconds (25.1-36.5) 01/26/18 19:44 - Constitutional Appears: Well, Non-toxic, No Acute Distress - Head Exam Head Exam: ATRAUMATIC, NORMAL INSPECTION, NORMOCEPHALIC - Eye Exam Eye Exam: EOMI, Normal appearance, PERRL - Respiratory Exam Respiratory Exam: Clear to Ausculation Bilateral, NORMAL BREATHING PATTERN. absent: Accessory Muscle Use, Decreased Breath Sounds, Rales, Rhonchi, Wheezes, Respiratory Distress, Stridor - Cardiovascular Exam Cardiovascular Exam: RRR, +S1, +S2. absent: Gallop, Rubs, Murmur - GI/Abdominal Exam GI & Abdominal Exam: Soft, Normal Bowel Sounds. absent: Tenderness - Extremities Exam Additional comments: Msucle strength equal in all extremities b/l. There is no numbness noted on exam and pt is able to localize where I touch with eyes closed without difficulty. - Back Exam Back Exam: NORMAL INSPECTION. absent: CVA tenderness (L), CVA tenderness (R) - Neurological Exam Neurological Exam: Alert, Awake, Oriented x3 Neuro motor strength exam: Left Upper Extremity: 5, Right Upper Extremity: 5, Left Lower Extremity: 5, Right Lower Extremity: 5 - Psychiatric Exam Psychiatric exam: Normal Affect, Normal Mood - Skin Skin Exam: Dry, Intact, Normal Color, Warm Assessment and Plan - Assessment and Plan (Free Text) Assessment: 62 yo F with PMH of DM2 (last A1c 7.3), HTN, CKD IV, OA, and osteomyelitis is admitted following an episode of starring with slurred speech for neurological and other work up. Will continue to monitor pt as on exam pt is no longer having any acute neurologic deficits. Plan: 1. Dysarthria: Improved - Episode of dysarthria may have been 2/2 seizure vs TIA vs CVA - Patient has no hx of prior episodes, no hx of seizures - Dysarthria has resolved now - CT head without evidence of acute intracranial hemorrhage - Neuro check q4h - Aspiration and seizure pxns - Ativan q4h PRN for any additional seizure activity - F/u B12, folate levels, TSH - Speech and swallow eval and treat - PT evaluate and treat - 24 hr EEG ordered per neurology recs - MRI brain, MRA head and neck ordered per neurology recs - Neurology following - added Keppra 500BID per recs 2. Normocytic anemia - May be 2/2 anemia of chronic disease from CKD stage IV vs occult bleed vs mineral deficiencies - Will transfuse 1 unit PRBC since H&H fell and is currently at 7.3. - f/u Iron studies, B12, folate, peripheral smear, reticulocyte count - f/u FOBT, C-diff - Consider outpatient colonoscopy if anemia is worsening or does not improve 3. Hyperkalemia: Resolved - Likely 2/2 poor oral intake with CKD IV - Now 4.6 will continue to monitor - Consider nephrology consultation if worsening, will need close outpatient f/u with patient's primary shingle grader 4. Diarrhea - May be 2/2 infectious causes vs malabsorption - f/u C-diff, fecal fat, leukocytes, stool cx 5. FREDY and CKD stage IV - Cr slightly increased to 1.9 from baseline of approximately 1.6 - Likely 2/2 dehydration from poor oral intake and/or diarrhea - Continue NS at 100 cc/hr - Continue to monitor BUN/Cr - Nephrology consult if worsening 6. Hx DM2 - Hold metformin, januvia while inpatient - ISS medium coverage - Point of care fingerstick glucose ACHS 7. Hx Osteomyelitis and toe amputations - Patient normally follows Dr. Mattson outpatient - Will consult Dr. Mattson for additional recs and dressing changes 8. PPX: DVT:SC heparin GI: protonix Case and plan reviewed and discussed with my attending Dr. Cheri Espinal DO Internal Medicine PGY-1 <Chaparro Alonzo - Last Filed: 01/28/18 15:47> Objective - Vital Signs/Intake and Output Vital Signs (last 24 hours): Temp Pulse Resp BP Pulse Ox 98 F 82 17 138/64 98 01/28/18 12:00 01/28/18 14:00 01/28/18 12:00 01/28/18 12:00 01/28/18 06:00 Intake and Output: 01/28/18 01/28/18 06:59 18:59 Intake Total 2580 Output Total 2750 Balance -170 - Medications Medications: Current Medications Aspirin (Ecotrin) 81 mg PO DAILY [facility] Last Admin: 01/28/18 10:05 Dose: 81 mg Heparin Sodium (Porcine) (Heparin) 5,000 units SC Q8 [facility]; Protocol Last Admin: 01/28/18 06:32 Dose: 5,000 units Sodium Chloride (Sodium Chloride 0.45%) 1,000 mls @ 125 mls/hr IV .Q8H [facility] Insulin Human Regular (Humulin R Med) 0 units SC ACHS [facility]; Protocol Last Admin: 01/28/18 12:41 Dose: Not Given Levetiracetam (Keppra) 500 mg PO BID [facility] Last Admin: 01/28/18 10:05 Dose: 500 mg Lorazepam (Ativan) 1 mg IVP Q4H PRN; Protocol PRN Reason: Seizure activity Metoprolol Succinate (Toprol Xl) 50 mg PO DAILY [facility] Last Admin: 01/28/18 10:05 Dose: 50 mg Pantoprazole Sodium (Protonix Ec Tab) 40 mg PO 0600 [facility] Last Admin: 01/28/18 06:32 Dose: 40 mg Sodium Bicarbonate (Sodium Bicarbonate Tab) 1,300 mg PO TID [facility] - Labs Labs: 01/28/18 06:00 01/28/18 06:00 PT 13.1 SECONDS (9.4-12.5) H 01/26/18 19:44 INR 1.15 01/26/18 19:44 APTT 27.8 Seconds (25.1-36.5) 01/26/18 19:44 Attending/Attestation - Attestation I have personally seen and examined this patient.: Yes I have fully participated in the care of the patient.: Yes I have reviewed all pertinent clinical information, including history, physical exam and plan: Yes Notes (Text): 01/28/18 15:43 Medical record note made by the resident after discussion with my direction and input after the patient was personally seen and examined by me. I have reviewed the chart and agree that the record accurately reflects by personal performance of the history, physical exam, data review, and medical decision-making, in the course for the patient. I have also personally directed the plan of care. 62 yrs old Female with PMH of DM2 (last A1c 7.3), HTN, CKD IV, OA, and hell osteomyelitis is admitted following an episode of starring with slurred speech , patient is back to her base line.There is no focal defict. 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 Elevated LFT, H/O dilated CBD on previous USG, will get GI consult. Chronic leg wound, will follow up with Podiatry . Hyperkalemia is resolved. 01/28/18 15:45 01/28/18 15:47
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
--- NOTE | 2018-01-27 17:06 | RAD ---
PROCEDURE: Right foot Radiographs. HISTORY: r/o OM COMPARISON: Right foot radiographs performed 06/26/17 FINDINGS: Status post amputation of the 2nd through 5th digits. Surgical deformity/chronic osteomyelitis small Ling distal 2nd to 5th metatarsals. Dislocation of the 1st MTP joint. Diffuse osseous demineralization. Postsurgical changes of the 1st metatarsal. Calcaneal enthesophyte. IMPRESSION: Significant abnormalities as above overall stable as compared to right foot radiographs performed 06/26/17 Please note that MRI without and with IV contrast is most sensitive in detection of acute osteomyelitis.
--- NOTE | 2018-01-27 17:14 | RAD ---
PROCEDURE: Left Foot Radiographs. HISTORY: r/o OM COMPARISON: Left foot radiographs performed 09/07/16 FINDINGS: Question small soft tissue ulcer along the plantar aspect of the foot near distal metatarsal level. Postsurgical deformities involving the distal metatarsals. Prior amputation of the 1st digit. Diffuse osseous demineralization. Calcaneal enthesophyte. Similar appearance of distal tibial deformity. IMPRESSION: Question small soft tissue ulcer along the plantar aspect of the foot near distal metatarsal level. Correlate with physical exam. Please note that MRI without and with IV contrast is most sensitive in detection of acute osteomyelitis.
--- NOTE | 2018-01-27 17:26 | MRI ---
Date of service: 01/27/2018 PROCEDURE: MRI BRAIN WITHOUT CONTRAST HISTORY: seizure COMPARISON: Noncontrast head CT 01/26/2018. TECHNIQUE: Multiplanar, multisequence MR images of the brain were obtained without intravenous contrast enhancement. FINDINGS: HEMORRHAGE: None DWI: There is an area of potential restricted diffusion at the posterior right temporal lobe approaching the right occipital lobe. ADC map however reveals some increased signal at the posterior margins of abnormal diffusion-weighted signal with intermediate dark signal similar to the remainder of the brain at the anterior and mid portions of this area of abnormal increased signal in the diffusion study. Therefore this may reflect tumor or potential focal inflammatory/infectious process. Diminished T1 and increased T2 signal is seen without hemorrhage here. The area of concern measures approximately 1.7 x 1.4 cm. Otherwise, limited chronic microangiopathy type white-matter changes seen at the centrum semiovale and are borderline at the periventricular white matter. Pontine white matter signal changes are a function of chronic microangiopathy. No midline shift. Heavily calcified lesion seen in CT 01/26/2018 corresponds to lesion a follows mejia matter signal intensity across various sequences measuring 1.8 x 1.3 cm, compatible with benign meningioma most likely. A similar lesion is identified at the right posterior fossa measuring 1.6 x 2.1 cm also likely reflecting benign meningioma. BRAIN PARENCHYMA: No mass effect or edema. No atrophy or chronic microvascular ischemic changes. VENTRICLES: Unremarkable. No hydrocephalus. CRANIUM: Unremarkable. ORBITS: Grossly unremarkable. PARANASAL SINUSES/MASTOIDS: Clear VASCULAR SYSTEM: Skull base flow voids intact. OTHER FINDINGS: None. IMPRESSION: 1. 1.7 cm ill-defined area of diminished T1, increased long TR and increased diffusion-weighted signal at the posterior right temporal lobe felt to likely reflect potential soft tissue mass though infectious or inflammatory process is not excluded. Infarction is not favored given inhomogeneous ADC map signal. It is understood the patient cannot undergo contrast MRI due to depressed GFR. Should the GFR trend upward then consideration of contrast MRI or CT is recommended for added characterization of these findings. 2. Left frontal lesion likely reflects a benign meningioma 1.8 cm. Additional likely meningioma right posterior fossa 2.1 cm. These foci can also be evaluated with MRI or CT brain with and without contrast should GFR improve. 3. Limited age-related neuro degenerative changes.
--- NOTE | 2018-01-27 17:28 | MRI ---
Date of service: 01/27/2018 PROCEDURE: Magnetic Resonance Angiography Brain HISTORY: seizure COMPARISON: None available. TECHNIQUE: 3D time of flight MR angiography of the intracranial arteries was performed. Rotating maximum intensity projection images were generated. FINDINGS: INTERNAL CAROTID ARTERIES: Unremarkable. The skull base, petrous, cavernous and supraclinoid segments are bilaterally widely patient. ANTERIOR CEREBRAL ARTERIES: Unremarkable. A1 and A2 segments are widely patent. Smaller distal branches unremarkable, as visualized. MIDDLE CEREBRAL ARTERIES: Unremarkable. M1 and M2 segments are widely patent. Perisylvian branches grossly symmetric. POSTERIOR CIRCULATION: Basilar Artery: Unremarkable. Distal Vertebral Arteries: Balance vertebrobasilar circulation Posterior Cerebral Arteries: Unremarkable. Posterior Inferior Cerebellar Arteries: Unremarkable. ANEURYSM/ VASCULAR MALFORMATIONS: None. OTHER FINDINGS: None. IMPRESSION: Unremarkable MR angiography of the brain.
[2018-01-27] MEDS: Metoprolol Succinate 50 mg XL Tab PO SCH (17:45)
[2018-01-28] MEDS: Pantoprazole 40 mg EC Tab PO SCH (06:32)
[2018-01-28] MEDS: Sodium Chloride 0.9% 1,000 ML IV SCH (06:33)
[2018-01-28 06:42] LABS: BASO # 0.01 K/mm3 (0.0-2.0); BASO % 0.1 % (0.0-3.0); EOS # 0.2 (0.0-0.7); EOS % 3.4 % (1.5-5.0); GRAN # 3.41 (1.4-6.5); GRAN % 50.4 % (50.0-68.0); LYMPH # 2.4 (1.2-3.4); LYMPH % 35.4 % (22.0-35.0); MEAN CORPUSCULAR HEMOGLOBIN 29.3 pg (25.0-35.0); MEAN CORPUSCULAR HGB CONC 31.6 g/dl (31.0-37.0); MEAN PLATELET VOLUME 9.9 fl (7.0-11.0); MONO # 0.7 (0.1-0.6); MONO % 10.7 % (1.0-6.0); RBC 3.17 10^6/uL (3.5-6.1); RED CELL DISTRIBUTION WIDTH 15.2 % (11.5-14.5); WHITE BLOOD COUNT 6.8 10^3/uL (4.5-11.0)
[2018-01-28 06:56] LABS: HEMOGLOBIN 9.3 g/dL (12.0-16.0); MEAN CELL VOLUME 92.7 fl (80.0-105.0)
[2018-01-28 07:30] LABS: ALB/GLOB RATIO 1.1 (1.1-1.8); ALBUMIN 3.6 g/dL (3.0-4.8); CALCIUM 9.5 mg/dL (8.4-10.5)
[2018-01-28] MEDS: Insulin Reg-MEDIUM-Coverage SC SCH ×4 (08:05→21:48)
[2018-01-28] MEDS ORDERED: Sodium Chloride 0.45% 1,000 ML IV SCH (09:00)
[2018-01-28] MEDS: Metoprolol Succinate 50 mg XL Tab PO SCH (10:05)
--- NOTE | 2018-01-28 10:49 | CP.PCM.PN ---
<Natanael Maria - Last Filed: 01/28/18 17:27> Subjective - Date & Time of Evaluation Date of Evaluation: 01/28/18 Time of Evaluation: 10:45 - Subjective Subjective: Neurology Progress Note for Dr. Potter Patient seen and examined at bedside. No acute overnight events. Patient denies any further seizure-like activity or LOC. Patient offers no complaints at this time. patient denies CP, SOB, n/v/d, abdominal pain, fever, chills, CHAMBERS, or dizziness. Objective - Vital Signs/Intake and Output Vital Signs (last 24 hours): Temp Pulse Resp BP Pulse Ox 98.2 F 106 H 18 133/60 98 01/28/18 06:00 01/28/18 10:05 01/28/18 06:00 01/28/18 10:05 01/28/18 06:00 Intake and Output: 01/28/18 01/28/18 06:59 18:59 Intake Total 2580 Output Total 2750 Balance -170 - Medications Medications: Current Medications Aspirin (Ecotrin) 81 mg PO DAILY [facility] Last Admin: 01/28/18 10:05 Dose: 81 mg Heparin Sodium (Porcine) (Heparin) 5,000 units SC Q8 [facility]; Protocol Last Admin: 01/28/18 06:32 Dose: 5,000 units Sodium Chloride (Sodium Chloride 0.45%) 1,000 mls @ 75 mls/hr IV .[id number] [facility] Last Admin: 01/28/18 10:06 Dose: 75 mls/hr Insulin Human Regular (Humulin R Med) 0 units SC ACHS [facility]; Protocol Last Admin: 01/28/18 08:05 Dose: Not Given Levetiracetam (Keppra) 500 mg PO BID [facility] Last Admin: 01/28/18 10:05 Dose: 500 mg Lorazepam (Ativan) 1 mg IVP Q4H PRN; Protocol PRN Reason: Seizure activity Metoprolol Succinate (Toprol Xl) 50 mg PO DAILY [facility] Last Admin: 01/28/18 10:05 Dose: 50 mg Pantoprazole Sodium (Protonix Ec Tab) 40 mg PO 0600 [facility] Last Admin: 01/28/18 06:32 Dose: 40 mg - Labs Labs: 01/28/18 06:00 01/28/18 06:00 PT 13.1 SECONDS (9.4-12.5) H 01/26/18 19:44 INR 1.15 18 19:44 APTT 27.8 Seconds (25.1-36.5) 01/26/18 19:44 - Constitutional Appears: No Acute Distress - Head Exam Head Exam: NORMAL INSPECTION - Eye Exam Eye Exam: Normal appearance - ENT Exam ENT Exam: Mucous Membranes Moist, Normal Exam - Neck Exam Neck Exam: Normal Inspection - Respiratory Exam Respiratory Exam: Clear to Ausculation Bilateral. absent: Rales, Rhonchi, Wheezes - Cardiovascular Exam Cardiovascular Exam: REGULAR RHYTHM, RRR - GI/Abdominal Exam GI & Abdominal Exam: Soft. absent: Distended, Guarding, Tenderness, Rebound - Extremities Exam Extremities Exam: Normal Inspection - Back Exam Back Exam: NORMAL INSPECTION - Neurological Exam Neurological Exam: Alert, Awake, Oriented x3 - Psychiatric Exam Psychiatric exam: Normal Affect - Skin Skin Exam: Normal Color Assessment and Plan - Assessment and Plan (Free Text) Assessment: 62 yo F with PMH of DM2, HTN, CKD, OA, osteomyelitis presented to [facility] for due to a witnessed, unresponsive period, where she stared off in to space. Neurology was consulted for possible seizure. Patient likely had a complex partial seizure in the left frontal region, consistent with her left frontal meningioma. Plan: - CT head showed chronic left basal ganglia infarct, 2 calcified moderately sized meningiomas int he right occipital and left frontal regions - Brain MRI showed 1.7 cm lesion in the posterior right temporal region likely soft tissue mass, 1.8 cm left frontal benign meningioma, and 2.1 cm right posterior fossa meningioma - MRA brain, head, neck negative - F/u EEG - Cont Keppra 500 mg BID Will discuss with attending. Darrin Maria DO PGY2 <Airam Potter - Last Filed: 01/28/18 22:49> Objective - Vital Signs/Intake and Output Vital Signs (last 24 hours): Temp Pulse Resp BP Pulse Ox 98 F 76 17 140/60 98 01/28/18 18:00 01/28/18 18:00 01/28/18 18:00 01/28/18 18:00 01/28/18 06:00 Intake and Output: 01/28/18 01/29/18 18:59 06:59 Intake Total 1300 Balance 1300 - Medications Medications: Current Medications Aspirin (Ecotrin) 81 mg PO DAILY [facility] Last Admin: 01/28/18 10:05 Dose: 81 mg Heparin Sodium (Porcine) (Heparin) 5,000 units SC Q8 [facility]; Protocol Last Admin: 01/28/18 21:45 Dose: 5,000 units Sodium Chloride (Sodium Chloride 0.45%) 1,000 mls @ 125 mls/hr IV .Q8H [facility] Last Admin: 01/28/18 21:42 Dose: 125 mls/hr Insulin Human Regular (Humulin R Med) 0 units SC ACHS [facility]; Protocol Last Admin: 01/28/18 21:48 Dose: Not Given Levetiracetam (Keppra) 500 mg PO BID [facility] Last Admin: 01/28/18 18:38 Dose: 500 mg Lorazepam (Ativan) 1 mg IVP Q4H PRN; Protocol PRN Reason: Seizure activity Metoprolol Succinate (Toprol Xl) 50 mg PO DAILY [facility] Last Admin: 01/28/18 10:05 Dose: 50 mg Pantoprazole Sodium (Protonix Ec Tab) 40 mg PO 0600 [facility] Last Admin: 01/28/18 06:32 Dose: 40 mg Sodium Bicarbonate (Sodium Bicarbonate Tab) 1,300 mg PO TID [facility] Last Admin: 01/28/18 21:44 Dose: 1,300 mg Vitamin B Complex/Vit C/Folic Acid (Nephro-Jenny) 1 tab PO 0800 [facility] - Labs Labs: 01/28/18 06:00 01/28/18 06:00 PT 13.1 SECONDS (9.4-12.5) H 01/26/18 19:44 INR 1.15 01/26/18 19:44 APTT 27.8 Seconds (25.1-36.5) 01/26/18 19:44 Assessment and Plan - Assessment and Plan (Free Text) Plan: Agree with residents assessment and plan. Patient has multiple meningiomas, that may be causing localization related epilepsy. EEG pending. Patient tolerating KEppra. Thank you christianne Hurt
--- NOTE | 2018-01-28 10:52 | CP.PCM.PN ---
Subjective - Date & Time of Evaluation Date of Evaluation: 01/28/18 Time of Evaluation: 10:49 - Subjective Subjective: Reviewed chart and MRI films 2 inconsequential Meneingomas ther eis a small are in the right temporal area that appears abnormal That may be inflamitory or neoplastic I would recommend waiting 4 weeks and repeating the MRI If it subsides than would just watch it. If it increases then would need stereotactic biopsy, which cannot be done at [facility]. No cotraindication to d/c pt on anticonvulsants and will follow in office Objective - Vital Signs/Intake and Output Vital Signs (last 24 hours): Temp Pulse Resp BP Pulse Ox 98.2 F 106 H 18 133/60 98 01/28/18 06:00 01/28/18 10:05 01/28/18 06:00 01/28/18 10:05 01/28/18 06:00 Intake and Output: 01/28/18 01/28/18 06:59 18:59 Intake Total 2580 Output Total 2750 Balance -170 - Medications Medications: Current Medications Aspirin (Ecotrin) 81 mg PO DAILY [facility] Last Admin: 01/28/18 10:05 Dose: 81 mg Heparin Sodium (Porcine) (Heparin) 5,000 units SC Q8 [facility]; Protocol Last Admin: 01/28/18 06:32 Dose: 5,000 units Sodium Chloride (Sodium Chloride 0.45%) 1,000 mls @ 75 mls/hr IV .[id number] [facility] Last Admin: 01/28/18 10:06 Dose: 75 mls/hr Insulin Human Regular (Humulin R Med) 0 units SC ACHS [facility]; Protocol Last Admin: 01/28/18 08:05 Dose: Not Given Levetiracetam (Keppra) 500 mg PO BID [facility] Last Admin: 01/28/18 10:05 Dose: 500 mg Lorazepam (Ativan) 1 mg IVP Q4H PRN; Protocol PRN Reason: Seizure activity Metoprolol Succinate (Toprol Xl) 50 mg PO DAILY [facility] Last Admin: 01/28/18 10:05 Dose: 50 mg Pantoprazole Sodium (Protonix Ec Tab) 40 mg PO 0600 [facility] Last Admin: 01/28/18 06:32 Dose: 40 mg - Labs Labs: 01/28/18 06:00 01/28/18 06:00 PT 13.1 SECONDS (9.4-12.5) H 01/26/18 19:44 INR 1.15 01/26/18 19:44 APTT 27.8 Seconds (25.1-36.5) 01/26/18 19:44
[2018-01-28] MEDS ORDERED: Darbepoetin Alfa 60 mcg/ml Inj SC ONE (13:51)
[2018-01-28] MEDS: Sodium Chloride 0.45% 1,000 ML IV SCH ×2 (14:12→21:42)
--- NOTE | 2018-01-28 14:49 | CP.PCM.PN ---
<Cleo Xavier - Last Filed: 01/28/18 14:36> Subjective - Date & Time of Evaluation Date of Evaluation: 01/28/18 Time of Evaluation: 14:36 - Subjective Subjective: Podiatry progress note for Dr. Mattson, 62 y/o female seen and evaluated at bedside for bilateral lower extremity wounds. Patient is resting comfortably in chair at bedside, and states she feels much better at this time. Objective - Vital Signs/Intake and Output Vital Signs (last 24 hours): Temp Pulse Resp BP Pulse Ox 98 F 82 17 138/64 98 01/28/18 12:00 01/28/18 12:00 01/28/18 12:00 01/28/18 12:00 01/28/18 06:00 Intake and Output: 01/28/18 01/28/18 06:59 18:59 Intake Total 2580 Output Total 2750 Balance -170 - Medications Medications: Current Medications Aspirin (Ecotrin) 81 mg PO DAILY [facility] Last Admin: 01/28/18 10:05 Dose: 81 mg Heparin Sodium (Porcine) (Heparin) 5,000 units SC Q8 [facility]; Protocol Last Admin: 01/28/18 06:32 Dose: 5,000 units Sodium Chloride (Sodium Chloride 0.45%) 1,000 mls @ 125 mls/hr IV .Q8H [facility] Insulin Human Regular (Humulin R Med) 0 units SC ACHS [facility]; Protocol Last Admin: 01/28/18 12:41 Dose: Not Given Levetiracetam (Keppra) 500 mg PO BID [facility] Last Admin: 01/28/18 10:05 Dose: 500 mg Lorazepam (Ativan) 1 mg IVP Q4H PRN; Protocol PRN Reason: Seizure activity Metoprolol Succinate (Toprol Xl) 50 mg PO DAILY [facility] Last Admin: 01/28/18 10:05 Dose: 50 mg Pantoprazole Sodium (Protonix Ec Tab) 40 mg PO 0600 [facility] Last Admin: 01/28/18 06:32 Dose: 40 mg Sodium Bicarbonate (Sodium Bicarbonate Tab) 1,300 mg PO TID [facility] - Labs Labs: 01/28/18 06:00 01/28/18 06:00 PT 13.1 SECONDS (9.4-12.5) H 01/26/18 19:44 INR 1.15 01/26/18 19:44 APTT 27.8 Seconds (25.1-36.5) 01/26/18 19:44 Assessment and Plan - Assessment and Plan (Free Text) Assessment: 62 y/o female seen and evaluated for bilateral lower extremity wounds Plan: Patient seen and evaluated Plan discussed with Dr. Mattson Chart, labs and vitals were reviewed- afebrile, absent leukocytosis CASSIDY/PVR Ordered for the patient Bilateral LE X-rays: reviewed Wound Cultures- Pending Left Foot Wound- dressed with dry sterile dressing Right Foot Wound- dressed with maxorb, gauze and kerlix Podiatry will continue to follow patient while in house <Leatha Mattson - Last Filed: 02/02/18 14:54> Objective - Vital Signs/Intake and Output Vital Signs (last 24 hours): Temp Pulse Resp BP Pulse Ox 98.6 F 110 H 20 156/70 H 99 02/02/18 06:00 02/02/18 10:41 02/02/18 06:00 02/02/18 10:41 02/02/18 06:00 - Medications Medications: Current Medications Aspirin (Ecotrin) 81 mg PO DAILY [facility] Last Admin: 02/02/18 10:40 Dose: 81 mg Heparin Sodium (Porcine) (Heparin) 5,000 units SC Q8 [facility]; Protocol Last Admin: 02/02/18 14:49 Dose: 5,000 units Vancomycin HCl (Vancomycin 750 Mg In Ns) 750 mg in 250 mls @ 167 mls/hr IVPB DAILY [facility]; Protocol Last Admin: 02/02/18 10:41 Dose: 167 mls/hr Insulin Human Regular (Humulin R Med) 0 units SC ACHS [facility]; Protocol Last Admin: 02/02/18 12:18 Dose: Not Given Levetiracetam (Keppra) 500 mg PO BID [facility] Last Admin: 02/02/18 10:40 Dose: 500 mg Lorazepam (Ativan) 1 mg IVP Q4H PRN; Protocol PRN Reason: Seizure activity Metoprolol Succinate (Toprol Xl) 50 mg PO DAILY [facility] Last Admin: 02/02/18 10:41 Dose: 50 mg Mupirocin (Bactroban Ointment) 0 gm TOP BID [facility] Last Admin: 02/02/18 10:40 Dose: 1 applic Ondansetron HCl (Zofran Inj) 4 mg IVP Q4H PRN PRN Reason: Nausea/Vomiting Last Admin: 01/29/18 16:15 Dose: 4 mg Pantoprazole Sodium (Protonix Ec Tab) 40 mg PO 0600 [facility] Last Admin: 02/02/18 05:35 Dose: 40 mg Sodium Bicarbonate (Sodium Bicarbonate Tab) 1,300 mg PO TID [facility] Last Admin: 02/02/18 14:49 Dose: 1,300 mg Vitamin B Complex/Vit C/Folic Acid (Nephro-Jenny) 1 tab PO 0800 [facility] Last Admin: 01/29/18 10:38 Dose: Not Given - Labs Labs: 02/02/18 06:00 02/02/18 06:00 PT 13.1 SECONDS (9.4-12.5) H 01/26/18 19:44 INR 1.15 01/26/18 19:44 APTT 27.8 Seconds (25.1-36.5) 01/26/18 19:44 Attending/Attestation - Attestation I have personally seen and examined this patient.: Yes I have fully participated in the care of the patient.: Yes I have reviewed all pertinent clinical information, including history, physical exam and plan: Yes
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
--- NOTE | 2018-01-28 15:51 | US ---
Date of service: 01/28/2018 HISTORY: LFT's COMPARISON: None. TECHNIQUE: Sonographic evaluation of the abdomen. FINDINGS: LIVER: Measures 13.1 cm. Normal echogenicity of the liver parenchyma. No mass. No intrahepatic bile duct dilatation. GALLBLADDER: Removed COMMON BILE DUCT: Measures 12 mm. No stones. No dilatation. PANCREAS: Unremarkable as visualized. No mass. No ductal dilatation. RIGHT KIDNEY: Measures 8.2 x 4.5 x 4.9cm. Normal echogenicity. No calculus, mass, or hydronephrosis. 1 cm upper pole cyst LEFT KIDNEY: Measures 7.7 x 3.9 x 5.2cm. Normal echogenicity. No calculus, mass, or hydronephrosis. SPLEEN: Normal in size and contour. No mass. 9.0 x 3.4 x 4.1 AORTA: No aneurysmal dilatation. IVC: Unremarkable. OTHER FINDINGS: None. IMPRESSION: Unremarkable abdominal sonogram.
[2018-01-28 16:21] LABS: HEPATITIS B SURFACE AG Negative (NEGATIVE)
[2018-01-28 16:28] LABS: HEPATITIS A IGM NEGATIVE (NEGATIVE); HEPATITIS B CORE AB NEGATIVE (NEGATIVE)
[2018-01-28 16:39] LABS: HEPATITIS C ANTIBODY NEGATIVE (NEGATIVE)
--- NOTE | 2018-01-28 17:22 | CP.PCM.PN ---
<Adilson Burdick - Last Filed: 01/28/18 17:27> Subjective - Date & Time of Evaluation Date of Evaluation: 01/28/18 Time of Evaluation: 13:00 - Subjective Subjective: INTERNAL MEDICINE PROGRESS NOTE FOR DR. KRISTIE Burdick PGY1 Pt seen and examined at bedside this am. No acute events overnight. She denies acute complaints today. She is tolerating her diet. 12 point ROS is negative. Objective - Vital Signs/Intake and Output Vital Signs (last 24 hours): Temp Pulse Resp BP Pulse Ox 98 F 82 17 138/64 98 01/28/18 12:00 01/28/18 14:00 01/28/18 12:00 01/28/18 12:00 01/28/18 06:00 Intake and Output: 01/28/18 01/28/18 06:59 18:59 Intake Total 2580 Output Total 2750 Balance -170 - Medications Medications: Current Medications Aspirin (Ecotrin) 81 mg PO DAILY [facility] Last Admin: 01/28/18 10:05 Dose: 81 mg Heparin Sodium (Porcine) (Heparin) 5,000 units SC Q8 [facility]; Protocol Last Admin: 01/28/18 16:27 Dose: 5,000 units Sodium Chloride (Sodium Chloride 0.45%) 1,000 mls @ 125 mls/hr IV .Q8H [facility] Last Admin: 01/28/18 14:12 Dose: Not Given Insulin Human Regular (Humulin R Med) 0 units SC ACHS [facility]; Protocol Last Admin: 01/28/18 16:58 Dose: Not Given Levetiracetam (Keppra) 500 mg PO BID [facility] Last Admin: 01/28/18 10:05 Dose: 500 mg Lorazepam (Ativan) 1 mg IVP Q4H PRN; Protocol PRN Reason: Seizure activity Metoprolol Succinate (Toprol Xl) 50 mg PO DAILY [facility] Last Admin: 01/28/18 10:05 Dose: 50 mg Pantoprazole Sodium (Protonix Ec Tab) 40 mg PO 0600 [facility] Last Admin: 01/28/18 06:32 Dose: 40 mg Sodium Bicarbonate (Sodium Bicarbonate Tab) 1,300 mg PO TID [facility] Last Admin: 01/28/18 16:27 Dose: 1,300 mg Vitamin B Complex/Vit C/Folic Acid (Nephro-Jenny) 1 tab PO 0800 [facility] - Labs Labs: 01/28/18 06:00 01/28/18 06:00 PT 13.1 SECONDS (9.4-12.5) H 01/26/18 19:44 INR 1.15 01/26/18 19:44 APTT 27.8 Seconds (25.1-36.5) 01/26/18 19:44 - Constitutional Appears: Well - Head Exam Head Exam: ATRAUMATIC, NORMAL INSPECTION, NORMOCEPHALIC - Eye Exam Eye Exam: EOMI, Normal appearance, PERRL Pupil Exam: NORMAL ACCOMODATION, PERRL - ENT Exam ENT Exam: Mucous Membranes Moist, Normal Exam - Neck Exam Neck Exam: Full ROM, Normal Inspection. absent: Lymphadenopathy - Respiratory Exam Respiratory Exam: Clear to Ausculation Bilateral, NORMAL BREATHING PATTERN - Cardiovascular Exam Cardiovascular Exam: REGULAR RHYTHM, +S1, +S2. absent: Murmur Additional comments: CN 2-12 intact sensation intact b/l u/l extremities - GI/Abdominal Exam GI & Abdominal Exam: Soft, Normal Bowel Sounds. absent: Tenderness - Rectal Exam Rectal Exam: NORMAL INSPECTION - Exam Exam: NORMAL INSPECTION - Extremities Exam Extremities Exam: Full ROM, Normal Capillary Refill, Normal Inspection. absent: Joint Swelling, Pedal Edema - Back Exam Back Exam: NORMAL INSPECTION - Neurological Exam Neurological Exam: Alert, Awake, CN II-XII Intact, Oriented x3 - Psychiatric Exam Psychiatric exam: Normal Affect, Normal Mood - Skin Skin Exam: Dry, Intact, Normal Color, Warm Assessment and Plan - Assessment and Plan (Free Text) Assessment: 62 yo F with PMH of DM2 (last A1c 7.3), HTN, CKD IV, OA, and osteomyelitis is admitted following an episode of slurred speech for neurological and other work up. Will continue to monitor pt as on exam pt is no longer having any acute neurologic deficits. Plan: Dysarthria: Improved+ - Per neuro, likely a complex partial seizure - 24 hr EEG ordered per neurology recs - Neurology following - added Keppra 500BID per recs - Neurosurgery consulted d/t MRI changes. Recommend repeating MRI in one month. - Repeat MRI with contrast once renal function stabilizes - Patient has no hx of prior episodes, no hx of seizures - Dysarthria has resolved now - CT head without evidence of acute intracranial hemorrhage - Neuro check q4h - Aspiration and seizure pxns - Ativan q4h PRN for any additional seizure activity - F/u B12, folate levels, TSH - Speech and swallow eval and treat - PT evaluate and treat Transaminitis - Pt has hx of bile duct dilatation - No ERCP noted - GI consulted. Appreciate recs - f/u abdominal ultrasound Normocytic anemia - May be 2/2 anemia of chronic disease from CKD stage IV vs occult bleed vs mineral deficiencies - s/p 1u pRBC. H/H stable - Consider outpatient colonoscopy if anemia is worsening or does not improve Hyperkalemia: Resolved - Likely 2/2 poor oral intake with CKD IV - resolved - Nephrology following. appreciate recs Diarrhea - May be 2/2 infectious causes vs malabsorption - f/u C-diff, fecal fat, leukocytes, stool cx FREDY and CKD stage IV - diabetic/hypertensive nephropathy - Cr increased - Continue 1/2 NS @ 125 mls/hr - Continue to monitor BUN/Cr - Nephrology consult if worsening - avoid nephrotoxins - MRI with contrast once GFR & BUN/Cr improve Hx DM2 - Hold metformin, januvia while inpatient - ISS medium coverage - Point of care fingerstick glucose ACHS Hx Osteomyelitis and toe amputations - Patient normally follows Dr. Mattson outpatient - f/u podiatry recs PPX: DVT:SC heparin GI: protonix Case seen, examined and discussed with attending physician, Dr. Alonzo <Chaparro Alonzo - Last Filed: 02/04/18 14:56> Objective - Vital Signs/Intake and Output Vital Signs (last 24 hours): Temp Pulse Resp BP Pulse Ox 98 F 109 H 18 139/63 100 02/04/18 14:00 02/04/18 14:00 02/04/18 14:00 02/04/18 14:00 02/04/18 14:00 Intake and Output: 02/04/18 02/04/18 06:59 18:59 Intake Total 120 Balance 120 - Medications Medications: Current Medications Aspirin (Ecotrin) 81 mg PO DAILY [facility] Last Admin: 02/04/18 10:52 Dose: 81 mg Darbepoetin Brown (Aranesp) 60 mcg SC QWK [facility] Last Admin: 02/04/18 13:08 Dose: 60 mcg Ferrous Gluconate (Fergon) 324 mg PO TID [facility] Last Admin: 02/04/18 13:08 Dose: 324 mg Heparin Sodium (Porcine) (Heparin) 5,000 units SC Q8 [facility]; Protocol Last Admin: 02/04/18 13:08 Dose: 5,000 units Vancomycin HCl (Vancomycin 750 Mg In Ns) 750 mg in 250 mls @ 167 mls/hr IVPB DAILY [facility]; Protocol Last Admin: 02/04/18 10:53 Dose: 167 mls/hr Sodium Chloride (Sodium Chloride 0.45%) 1,000 mls @ 100 mls/hr IV .Q10H [facility] Last Admin: 02/04/18 11:20 Dose: 100 mls/hr Insulin Human Regular (Humulin R Med) 0 units SC ACHS [facility]; Protocol Last Admin: 02/04/18 12:34 Dose: 1 unit Levetiracetam (Keppra) 500 mg PO BID [facility] Last Admin: 02/04/18 10:52 Dose: 500 mg Lorazepam (Ativan) 1 mg IVP Q4H PRN; Protocol PRN Reason: Seizure activity Last Admin: 02/03/18 22:01 Dose: 1 mg Metoprolol Succinate (Toprol Xl) 50 mg PO DAILY [facility] Last Admin: 02/04/18 10:53 Dose: 50 mg Mupirocin (Bactroban Ointment) 0 gm TOP BID [facility] Last Admin: 02/04/18 12:34 Dose: 1 applic Ondansetron HCl (Zofran Inj) 4 mg IVP Q4H PRN PRN Reason: Nausea/Vomiting Last Admin: 01/29/18 16:15 Dose: 4 mg Pantoprazole Sodium (Protonix Ec Tab) 40 mg PO 0600 [facility] Last Admin: 02/04/18 07:52 Dose: Not Given Sodium Bicarbonate (Sodium Bicarbonate Tab) 1,300 mg PO TID [facility] Last Admin: 02/04/18 13:09 Dose: 1,300 mg Vitamin B Complex/Vit C/Folic Acid (Nephro-Jenny) 1 tab PO 0800 [facility] Last Admin: 02/04/18 10:53 Dose: 1 tab - Labs Labs: 02/04/18 06:20 02/04/18 06:20 PT 13.1 SECONDS (9.4-12.5) H 01/26/18 19:44 INR 1.15 01/26/18 19:44 APTT 27.8 Seconds (25.1-36.5) 01/26/18 19:44 Attending/Attestation - Attestation I have personally seen and examined this patient.: Yes I have fully participated in the care of the patient.: Yes I have reviewed all pertinent clinical information, including history, physical exam and plan: Yes Notes (Text): 02/04/18 14:55 Medical record note made by the resident after discussion with my direction and input after the patient was personally seen and examined by me. I have reviewed the chart and agree that the record accurately reflects by personal performance of the history, physical exam, data review, and medical decision-making, in the course for the patient. I have also personally directed the plan of care.
--- NOTE | 2018-01-28 19:54 | US ---
PROCEDURE: Lower extremity CASSIDY exam HISTORY: Peripheral vascular disease with pain and ulceration. Diabetes. PHYSICIAN(S): Ren Ortiz MD. FINDINGS: The resting CASSIDY's are normal: right, 1.11and left, 1.07 The brachial systolic pressures are symmetric. The high thigh pressures and waveforms are relatively normal. The calf PVR waveforms augment normally. No significant gradients are noted across the thighs. The ankle and metatarsal waveforms are relatively normal and symmetric. No significant pressure gradients are noted across the lower legs. IMPRESSION: 1. Relatively normal CASSIDY and PVR examination at rest.
--- NOTE | 2018-01-28 19:58 | CON ---
DATE: 01/28/2018 GASTROENTEROLOGY CONSULTATION REASON FOR CONSULTATION: I have been asked to see this 62-year-old female with chronic foot ulcer, osteomyelitis, chronic anemia, diabetes mellitus, dilated common bile duct seen on an ultrasound back in 03/2017. This showed an echogenic liver as well as dilated common bile duct measuring 12 mm without any intrahepatic biliary ductal dilatation. She currently denies any abdominal pain, nausea, vomiting, or weight loss. Liver enzymes at that time showed AST 60, ALT 109, and an alkaline phosphatase of 244 with a total bilirubin of 0.5. On this admission, her liver enzymes are similar with an AST 98, ALT 169, and alkaline phosphatase of 155, with a total bilirubin of 0.4. Again, she is asymptomatic without any abdominal pain, nausea, vomiting, or weight loss. The patient was admitted to the hospital with slurred speech and possible new CVA versus seizure disorder. PAST MEDICAL HISTORY: Notable for chronic foot ulcer, hypertension, type 2 diabetes mellitus, chronic kidney disease, osteomyelitis, and osteoarthritis. PAST SURGICAL HISTORY: Notable for right leg surgery with toe amputations, cholecystectomy, and cataracts. MEDICATIONS AT HOME: Include Megace, aspirin, metformin, metoprolol, Protonix, and Januvia. FAMILY HISTORY: Notable for mother with CHF, father with COPD. SOCIAL HISTORY: She denies cigarette smoking or alcohol use. REVIEW OF SYSTEMS: Fourteen-point review of systems is notable for slurred speech and confusion. PHYSICAL EXAMINATION: GENERAL: A thin female, lying in bed, in no acute distress. VITAL SIGNS: Reveal a temperature of 98.2, blood pressure of 133/60, heart rate of 106. HEENT: Reveals sclerae to be white. Conjunctivae pale. NECK: Supple. CHEST: Reveal lungs to be clear. HEART: Exam reveals a regular rate and rhythm. ABDOMEN: Soft, nontender. EXTREMITIES: Show no edema. She has multiple ulcers of her left foot and toes. IMAGING DATA: Ultrasound of the abdomen performed in 03/2017 showed a dilated common bile duct measuring 12 mm. Repeat ultrasound in June revealed the same. IMPRESSION: 1. Asymptomatic incidental dilated common bile duct measuring 12 mm, most likely secondary to cholecystectomy. The patient denies any weight loss or abdominal pain. 2. Chronic anemia. She does have a history of a large hyperplastic gastric polyp, which was removed back in 06/2017. Her anemia is chronic, most likely secondary to chronic disease. RECOMMENDATIONS: We will check an abdominal ultrasound to ensure stability of the common bile duct dilatation. If the size of the common bile duct remains unchanged, I would not recommend any further workup for this chronic process, which is most likely secondary to cholecystectomy. Arden Hernandes MD
[2018-01-29] MEDS: Sodium Chloride 0.45% 1,000 ML IV SCH (06:03)
[2018-01-29] MEDS: Pantoprazole 40 mg EC Tab PO SCH (06:04)
[2018-01-29] MEDS: Insulin Reg-MEDIUM-Coverage SC SCH ×4 (07:53→23:05)
[2018-01-29 09:32] LABS: BASO # 0.02 K/mm3 (0.0-2.0); BASO % 0.3 % (0.0-3.0); EOS # 0.2 (0.0-0.7); EOS % 2.8 % (1.5-5.0); GRAN # 3.96 (1.4-6.5); GRAN % 60.8 % (50.0-68.0); HEMOGLOBIN 10.6 g/dL (12.0-16.0); LYMPH # 1.7 (1.2-3.4); LYMPH % 25.8 % (22.0-35.0); MEAN CELL VOLUME 92.4 fl (80.0-105.0); MEAN CORPUSCULAR HEMOGLOBIN 29.9 pg (25.0-35.0); MEAN CORPUSCULAR HGB CONC 32.3 g/dl (31.0-37.0); MONO # 0.7 (0.1-0.6); MONO % 10.3 % (1.0-6.0); RBC 3.55 10^6/uL (3.5-6.1); RED CELL DISTRIBUTION WIDTH 14.3 % (11.5-14.5); WHITE BLOOD COUNT 6.5 10^3/uL (4.5-11.0)
[2018-01-29 09:49] LABS: ALB/GLOB RATIO 1.1 (1.1-1.8); ALBUMIN 4.2 g/dL (3.0-4.8)
[2018-01-29] MEDS ORDERED: Sodium Bicarbonate (8.4%) 50 Meq Syringe IVP ONE (10:00)
[2018-01-29] MEDS ORDERED: Sodium Chloride 0.45% 1,000 ML IV SCH (10:00)
[2018-01-29] MEDS ORDERED: Vancomycin 1gm in NS 250ml 1 GM/250 ML BAG IVPB SCH (10:30)
[2018-01-29] MEDS: Metoprolol Succinate 50 mg XL Tab PO SCH (10:37)
[2018-01-29] MEDS: Multivitamin Vitamin B Complex (Nephro-Vite) Tab PO SCH (10:38)
--- NOTE | 2018-01-29 12:10 | CP.PCM.PN ---
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 No ACEI/ARB due to FREDY and hyperkalemia. maintain hemodynamics stable. continue with beta blockers Monitor Input/Output, daily weights and renal function with basic metabolic panel resume Sodium bicarb 1300 mg tid dose of ananesp 60 mcg on 01/28/19, as needed PRBC transfusion continue with IVF as 0.45% saline , rate decreased to 75 ml/hr if needed, can proceed with MRI with contrast from renal perspective as FREDY improved and risk of adverse effect from gadolinium much lower Dose meds/antibiotics for reduced GFR. Avoid fleets enema/magnesium based laxatives. Avoid nephrotoxins/NSAIDs/ iodinated contrast (unless needed emergently) Glycemic control Further work up/management as per primary team Thanks for allowing me to participate in care of your patient. Will follow patient with you. Please call if any Qs. had d/w team Dr Javier Reyes Office: [phone] CC; seizure HPI: Pt is a 62 y/o F with hx of diabetes Mellitus ( x 8-9 years) with retinopathy, hypertension, hearing loss, esophageal stenosis, chronic anemia, basal cell CA on nasal skin s/p removal, recurrent AKIs, now has CKD stage 3 with anemia, acidosis and hyperkalemia, dehydration with limited oral intake and incr GI fluid loss came with seizure. renal consult for FREDY and lytes management. pt also planned for MRI brain w/c Denies chest pain, palpitation, shortness of breath, leg swelling. Has chronic loose stool 2-3 times/day but better now a days. ROS: pt denies any new complaints. no CP/SOB. no pain abdomen. all other negative General Appearance: Comfortable, in no acute respiratory distress, co-operative. thin built. Vitals reviewed and noted Head; Atraumatic, normocephalic ENT: no ulcers no thrush. Tongue is midline. Oropharynx: no rash or ulcers. Hard of hearing. Uses hearing aid. EYES: Pupils are equal, round and reactive to light accommodation. Eye muscles and extraocular movement intact. Sclera is anicteric. Neck; supple no lymphadenopathy, no thyromegaly or bruit Lungs: Normal respiratory rate/effort. Breath sounds bilateral equal and clear Heart: Increased rate. s1s2 normal. No rub or gallop. Extremities: no edema with wound dressed at feet. No varicose veins. Hand osteoarthritic deformities +. Neurological: Patient is alert, awake and oriented to person, place and time. No focal deficit. Strength bilateral appropriate and equal Skin: Warm and dry. Normal turgor. Palpitation: Normal elasticity for age. has rash in lower extremities Abdomen: Abdomen is soft. Bowel sounds +. There is no abdominal tenderness, no guarding/rigidity or organomegaly Psych: normal insight and normal affect/mood MSK: no joint tenderness or swelling. hands swelling noted : kidney or bladder not palpable Labs/imaging reviewed. Past medical history, past surgical history, family history, social history, allergy reviewed and noted as below Family hx: no hx of CKD. Rest non-contributory Work up: 09/13/2016: GN serologies all negative, scleroderma work up neg, SPEP/LUDY neg Renal sono: b/l cortical atrophy. Small 1 cm Rt kidney simple cyst. Objective - Vital Signs/Intake and Output Vital Signs (last 24 hours): Temp Pulse Resp BP Pulse Ox 98.5 F 83 20 146/72 100 01/29/18 06:00 01/29/18 10:37 01/29/18 06:00 01/29/18 10:37 01/29/18 06:00 Intake and Output: 01/29/18 01/29/18 06:59 18:59 Intake Total 0 Balance 0 - Medications Medications: Current Medications Aspirin (Ecotrin) 81 mg PO DAILY [facility] Last Admin: 01/29/18 10:38 Dose: 81 mg Heparin Sodium (Porcine) (Heparin) 5,000 units SC Q8 [facility]; Protocol Last Admin: 01/29/18 06:04 Dose: 5,000 units Vancomycin HCl (Vancomycin 1gm) 1 gm in 250 mls @ 167 mls/hr IVPB DAILY [facility]; Protocol Last Admin: 01/29/18 11:27 Dose: 167 mls/hr Insulin Human Regular (Humulin R Med) 0 units SC ACHS [facility]; Protocol Last Admin: 01/29/18 07:53 Dose: Not Given Levetiracetam (Keppra) 500 mg PO BID [facility] Last Admin: 01/29/18 10:37 Dose: 500 mg Lorazepam (Ativan) 1 mg IVP Q4H PRN; Protocol PRN Reason: Seizure activity Metoprolol Succinate (Toprol Xl) 50 mg PO DAILY [facility] Last Admin: 01/29/18 10:37 Dose: 50 mg Pantoprazole Sodium (Protonix Ec Tab) 40 mg PO 0600 [facility] Last Admin: 01/29/18 06:04 Dose: 40 mg Sodium Bicarbonate (Sodium Bicarbonate Tab) 1,300 mg PO TID [facility] Last Admin: 01/29/18 10:37 Dose: 1,300 mg Vitamin B Complex/Vit C/Folic Acid (Nephro-Jenny) 1 tab PO 0800 [facility] Last Admin: 01/29/18 10:38 Dose: Not Given - Labs Labs: 01/29/18 09:20 01/29/18 09:20 PT 13.1 SECONDS (9.4-12.5) H 01/26/18 19:44 INR 1.15 01/26/18 19:44 APTT 27.8 Seconds (25.1-36.5) 01/26/18 19:44
--- NOTE | 2018-01-29 12:36 | CP.PCM.PN ---
<Cleo Xavier - Last Filed: 01/29/18 12:32> Subjective - Date & Time of Evaluation Date of Evaluation: 01/29/18 Time of Evaluation: 12:32 - Subjective Subjective: Podiatry progress note for Dr. Raymond, 62 y/o female seen and evaluated at bedside with Dr. Raymond for bilateral lower extremity wounds. Patient is resting comfortably in chair at bed, and states she feels much better at this time. Patient denies any F/N/V/SOB/chills Objective - Vital Signs/Intake and Output Vital Signs (last 24 hours): Temp Pulse Resp BP Pulse Ox 98.5 F 83 20 146/72 100 01/29/18 06:00 01/29/18 10:37 01/29/18 06:00 01/29/18 10:37 01/29/18 06:00 Intake and Output: 01/29/18 01/29/18 06:59 18:59 Intake Total 0 Balance 0 - Medications Medications: Current Medications Aspirin (Ecotrin) 81 mg PO DAILY [facility] Last Admin: 01/29/18 10:38 Dose: 81 mg Heparin Sodium (Porcine) (Heparin) 5,000 units SC Q8 [facility]; Protocol Last Admin: 01/29/18 06:04 Dose: 5,000 units Vancomycin HCl (Vancomycin 1gm) 1 gm in 250 mls @ 167 mls/hr IVPB DAILY [facility]; Protocol Last Admin: 01/29/18 11:27 Dose: 167 mls/hr Insulin Human Regular (Humulin R Med) 0 units SC ACHS [facility]; Protocol Last Admin: 01/29/18 07:53 Dose: Not Given Levetiracetam (Keppra) 500 mg PO BID [facility] Last Admin: 01/29/18 10:37 Dose: 500 mg Lorazepam (Ativan) 1 mg IVP Q4H PRN; Protocol PRN Reason: Seizure activity Metoprolol Succinate (Toprol Xl) 50 mg PO DAILY [facility] Last Admin: 01/29/18 10:37 Dose: 50 mg Mupirocin (Bactroban Ointment) 20 gm TOP BID [facility] Pantoprazole Sodium (Protonix Ec Tab) 40 mg PO 0600 [facility] Last Admin: 01/29/18 06:04 Dose: 40 mg Sodium Bicarbonate (Sodium Bicarbonate Tab) 1,300 mg PO TID [facility] Last Admin: 01/29/18 10:37 Dose: 1,300 mg Vitamin B Complex/Vit C/Folic Acid (Nephro-Jenny) 1 tab PO 0800 [facility] Last Admin: 01/29/18 10:38 Dose: Not Given - Labs Labs: 01/29/18 09:20 01/29/18 09:20 PT 13.1 SECONDS (9.4-12.5) H 01/26/18 19:44 INR 1.15 01/26/18 19:44 APTT 27.8 Seconds (25.1-36.5) 01/26/18 19:44 - Constitutional Appears: Well, Non-toxic, No Acute Distress - Head Exam Head Exam: ATRAUMATIC, NORMOCEPHALIC - Extremities Exam Additional comments: Lower extremity focused examination: Vasc: DP/PT pulses palpable 2/4 B/L. Temperature gradient warm to warm from proximal to distal. Cap refill time: < 3 sec to all digits, mild non-pitting edema noted on bilateral LE (R>L) Derm: Right- multiple plantar wounds noted, grade 2, no malodor, no probe to bone, no tunneling, minimal drainage noted, 100% granular base Left- multiple plantar wounds noted, with minimal serous drainage noted, no probe to probe, no tunneling, no malodor, 100% granular base Neuro: Protective sensation is grossly intact B/L Ortho: Mild tenderness to palpation of right foot wound. Left ankle ulceration mildly tender - Neurological Exam Neurological Exam: Alert, Awake, Oriented x3 - Psychiatric Exam Psychiatric exam: Normal Affect, Normal Mood Assessment and Plan - Assessment and Plan (Free Text) Assessment: 62 y/o female seen with multiple bilateral feet wounds Plan: Patient seen and evaluated Plan discussed with Dr. Raymond Wound Culture: MRSA Wounds debrided with #15 blade, patient tolerated procedure well Wounds cleansed with saline, and dressed with xeroform, gauze, ABD, and Kerlix Rx Bactroban for the application to the wounds Post-op surgical shoe ordered for patient Podiatry will continue to follow patient while in house <Jose Raymond - Last Filed: 01/29/18 12:59> Objective - Vital Signs/Intake and Output Vital Signs (last 24 hours): Temp Pulse Resp BP Pulse Ox 98.5 F 83 20 146/72 100 01/29/18 06:00 01/29/18 10:37 01/29/18 06:00 01/29/18 10:37 01/29/18 06:00 Intake and Output: 01/29/18 01/29/18 06:59 18:59 Intake Total 0 Balance 0 - Medications Medications: Current Medications Aspirin (Ecotrin) 81 mg PO DAILY [facility] Last Admin: 01/29/18 10:38 Dose: 81 mg Heparin Sodium (Porcine) (Heparin) 5,000 units SC Q8 [facility]; Protocol Last Admin: 01/29/18 06:04 Dose: 5,000 units Vancomycin HCl (Vancomycin 1gm) 1 gm in 250 mls @ 167 mls/hr IVPB DAILY [facility]; Protocol Last Admin: 01/29/18 11:27 Dose: 167 mls/hr Insulin Human Regular (Humulin R Med) 0 units SC ACHS [facility]; Protocol Last Admin: 01/29/18 12:35 Dose: 1 unit Levetiracetam (Keppra) 500 mg PO BID [facility] Last Admin: 01/29/18 10:37 Dose: 500 mg Lorazepam (Ativan) 1 mg IVP Q4H PRN; Protocol PRN Reason: Seizure activity Metoprolol Succinate (Toprol Xl) 50 mg PO DAILY [facility] Last Admin: 01/29/18 10:37 Dose: 50 mg Mupirocin (Bactroban Ointment) 0 gm TOP BID [facility] Pantoprazole Sodium (Protonix Ec Tab) 40 mg PO 0600 [facility] Last Admin: 01/29/18 06:04 Dose: 40 mg Sodium Bicarbonate (Sodium Bicarbonate Tab) 1,300 mg PO TID [facility] Last Admin: 01/29/18 10:37 Dose: 1,300 mg Vitamin B Complex/Vit C/Folic Acid (Nephro-Jenny) 1 tab PO 0800 [facility] Last Admin: 01/29/18 10:38 Dose: Not Given - Labs Labs: 01/29/18 09:20 01/29/18 09:20 PT 13.1 SECONDS (9.4-12.5) H 01/26/18 19:44 INR 1.15 01/26/18 19:44 APTT 27.8 Seconds (25.1-36.5) 01/26/18 19:44 Attending/Attestation - Attestation I have personally seen and examined this patient.: Yes I have fully participated in the care of the patient.: Yes I have reviewed all pertinent clinical information, including history, physical exam and plan: Yes
--- NOTE | 2018-01-29 13:51 | PN ---
DATE: 01/29/2018 SUBJECTIVE: The patient is lying in bed, comfortable. She denies any abdominal pain, diarrhea, nausea or vomiting. PHYSICAL EXAMINATION: VITAL SIGNS: Reveal temperature of 98.5, blood pressure 152/68, heart rate of 85. HEENT: Reveal sclerae to be white. Conjunctivae pale. NECK: Supple. CHEST: Reveal lungs to be clear. HEART: Reveals regular rate and rhythm. ABDOMEN: Soft, nontender. EXTREMITIES: Show no edema. She does have multiple foot ulcers on her left foot. DIAGNOSTIC DATA: Ultrasound of the abdomen shows no change in the CBD dilatation of 12 mm. There is no intrahepatic biliary dilatation. LABORATORY DATA: Reveal white blood cell count 6.5, hemoglobin 10.6. Chemistries reveal AST 79, ALT 142, alkaline phosphatase of 171. IMPRESSION: 1. Chronically dilated common bile duct secondary to cholecystectomy. 2. Elevated liver enzymes secondary to steatohepatitis. Hepatitis serology is negative. 3. Anemia of chronic disease. 4. Foot ulcers. RECOMMENDATIONS: No further GI workup planned at this time. Continue treatment of foot ulcers as per Podiatry and Infectious Disease. Arden Hernandes MD
--- NOTE | 2018-01-29 15:01 | CP.PCM.PN ---
<Adilson Burdick - Last Filed: 01/29/18 15:01> Subjective - Date & Time of Evaluation Date of Evaluation: 01/29/18 Time of Evaluation: 12:00 - Subjective Subjective: INTERNAL MEDICINE PROGRESS NOTE FOR DR. KRISTIE Burdick PGY-1 Pt seen and examined at bedside this am. No acute nursing events overnight. She denies any seizure-like episodes. She is tolerating her diet. 12 point ROS is negative. Objective - Vital Signs/Intake and Output Vital Signs (last 24 hours): Temp Pulse Resp BP Pulse Ox 98 F 89 17 152/68 H 100 01/29/18 12:00 01/29/18 12:00 01/29/18 12:00 01/29/18 12:00 01/29/18 06:00 Intake and Output: 01/29/18 01/29/18 06:59 18:59 Intake Total 0 Balance 0 - Medications Medications: Current Medications Aspirin (Ecotrin) 81 mg PO DAILY [facility] Last Admin: 01/29/18 10:38 Dose: 81 mg Heparin Sodium (Porcine) (Heparin) 5,000 units SC Q8 [facility]; Protocol Last Admin: 01/29/18 06:04 Dose: 5,000 units Vancomycin HCl (Vancomycin 1gm) 1 gm in 250 mls @ 167 mls/hr IVPB DAILY [facility]; Protocol Last Admin: 01/29/18 11:27 Dose: 167 mls/hr Insulin Human Regular (Humulin R Med) 0 units SC ACHS [facility]; Protocol Last Admin: 01/29/18 12:35 Dose: 1 unit Levetiracetam (Keppra) 500 mg PO BID [facility] Last Admin: 01/29/18 10:37 Dose: 500 mg Lorazepam (Ativan) 1 mg IVP Q4H PRN; Protocol PRN Reason: Seizure activity Metoprolol Succinate (Toprol Xl) 50 mg PO DAILY [facility] Last Admin: 01/29/18 10:37 Dose: 50 mg Mupirocin (Bactroban Ointment) 0 gm TOP BID [facility] Pantoprazole Sodium (Protonix Ec Tab) 40 mg PO 0600 [facility] Last Admin: 01/29/18 06:04 Dose: 40 mg Sodium Bicarbonate (Sodium Bicarbonate Tab) 1,300 mg PO TID [facility] Last Admin: 01/29/18 13:36 Dose: 1,300 mg Vitamin B Complex/Vit C/Folic Acid (Nephro-Jenny) 1 tab PO 0800 [facility] Last Admin: 01/29/18 10:38 Dose: Not Given - Labs Labs: 01/29/18 09:20 01/29/18 09:20 PT 13.1 SECONDS (9.4-12.5) H 01/26/18 19:44 INR 1.15 01/26/18 19:44 APTT 27.8 Seconds (25.1-36.5) 01/26/18 19:44 - Additional Findings Additional findings: - Constitutional Appears: Well - Head Exam Head Exam: ATRAUMATIC, NORMAL INSPECTION, NORMOCEPHALIC - Eye Exam Eye Exam: EOMI, Normal appearance, PERRL Pupil Exam: NORMAL ACCOMODATION, PERRL - ENT Exam ENT Exam: Mucous Membranes Moist, Normal Exam - Neck Exam Neck Exam: Full ROM, Normal Inspection. absent: Lymphadenopathy - Respiratory Exam Respiratory Exam: Clear to Ausculation Bilateral, NORMAL BREATHING PATTERN - Cardiovascular Exam Cardiovascular Exam: REGULAR RHYTHM, +S1, +S2. absent: Murmur Additional comments: CN 2-12 intact sensation intact b/l u/l extremities - GI/Abdominal Exam GI & Abdominal Exam: Soft, Normal Bowel Sounds. absent: Tenderness - Rectal Exam Rectal Exam: NORMAL INSPECTION - Exam Exam: NORMAL INSPECTION - Extremities Exam Extremities Exam: Full ROM, Normal Capillary Refill, Normal Inspection. absent: Joint Swelling, Pedal Edema - Back Exam Back Exam: NORMAL INSPECTION - Neurological Exam Neurological Exam: Alert, Awake, CN II-XII Intact, Oriented x3 - Psychiatric Exam Psychiatric exam: Normal Affect, Normal Mood - Skin Skin Exam: Dry, Intact, Normal Color, Warm Assessment and Plan - Assessment and Plan (Free Text) Assessment: 62 yo F with PMH of DM2 (last A1c 7.3), HTN, CKD IV, OA, and osteomyelitis is admitted following an episode of slurred speech for neurological and other work up. Will continue to monitor pt as on exam pt is no longer having any acute neurologic deficits. Plan: Dysarthria: Improved - Per neuro, likely a complex partial seizure - 24 hr EEG ordered per neurology recs - Neurology following - added Keppra 500BID per recs - Neurosurgery consulted d/t MRI changes. Recommend repeating MRI in one month. - Repeat MRI with contrast once renal function stabilizes - Patient has no hx of prior episodes, no hx of seizures - Dysarthria has resolved now - CT head without evidence of acute intracranial hemorrhage - Neuro check q4h - Aspiration and seizure pxns - Ativan q4h PRN for any additional seizure activity - PT evaluate and treat Hx Osteomyelitis and toe amputations - Patient normally follows Dr. Mattson outpatient - L foot xray reveals signs of osteomyelitis - f/u L foot MRI - bactroban for the wounds - f/u podiatry recs FREDY and CKD stage IV - diabetic/hypertensive nephropathy - Cr improved - Dc fluid - Continue to monitor BUN/Cr - Nephrology consult if worsening - avoid nephrotoxins - MRI with contrast once GFR & BUN/Cr improve Transaminitis - Pt has hx of bile duct dilatation secondary to cholecystectomy - elevated liver enzymes likely secondary to steatohepatitis. Hepatitis serology is negative - GI consulted. Appreciate recs - f/u abdominal ultrasound Anemia of chronic disease - s/p 1u pRBC. H/H stable - Consider outpatient colonoscopy if anemia is worsening or does not improve Hyperkalemia - Likely 2/2 poor oral intake with CKD IV - EKG wnl - hold nephrovite - Nephrology following. appreciate recs Diarrhea - May be 2/2 infectious causes vs malabsorption - f/u C-diff, fecal fat, leukocytes, stool cx Hx DM2 - Hold metformin, januvia while inpatient - ISS medium coverage - Point of care fingerstick glucose ACHS PPX: DVT:SC heparin GI: protonix po Case seen, examined and discussed with attending physician, Dr. Alonzo <Chaparro Alonzo - Last Filed: 02/04/18 14:54> Objective - Vital Signs/Intake and Output Vital Signs (last 24 hours): Temp Pulse Resp BP Pulse Ox 98 F 109 H 18 139/63 100 02/04/18 14:00 02/04/18 14:00 02/04/18 14:00 02/04/18 14:00 02/04/18 14:00 Intake and Output: 02/04/18 02/04/18 06:59 18:59 Intake Total 120 Balance 120 - Medications Medications: Current Medications Aspirin (Ecotrin) 81 mg PO DAILY [facility] Last Admin: 02/04/18 10:52 Dose: 81 mg Darbepoetin Brown (Aranesp) 60 mcg SC QWK [facility] Last Admin: 02/04/18 13:08 Dose: 60 mcg Ferrous Gluconate (Fergon) 324 mg PO TID [facility] Last Admin: 02/04/18 13:08 Dose: 324 mg Heparin Sodium (Porcine) (Heparin) 5,000 units SC Q8 [facility]; Protocol Last Admin: 02/04/18 13:08 Dose: 5,000 units Vancomycin HCl (Vancomycin 750 Mg In Ns) 750 mg in 250 mls @ 167 mls/hr IVPB DAILY [facility]; Protocol Last Admin: 02/04/18 10:53 Dose: 167 mls/hr Sodium Chloride (Sodium Chloride 0.45%) 1,000 mls @ 100 mls/hr IV .Q10H [facility] Last Admin: 02/04/18 11:20 Dose: 100 mls/hr Insulin Human Regular (Humulin R Med) 0 units SC ACHS [facility]; Protocol Last Admin: 02/04/18 12:34 Dose: 1 unit Levetiracetam (Keppra) 500 mg PO BID [facility] Last Admin: 02/04/18 10:52 Dose: 500 mg Lorazepam (Ativan) 1 mg IVP Q4H PRN; Protocol PRN Reason: Seizure activity Last Admin: 02/03/18 22:01 Dose: 1 mg Metoprolol Succinate (Toprol Xl) 50 mg PO DAILY [facility] Last Admin: 02/04/18 10:53 Dose: 50 mg Mupirocin (Bactroban Ointment) 0 gm TOP BID [facility] Last Admin: 02/04/18 12:34 Dose: 1 applic Ondansetron HCl (Zofran Inj) 4 mg IVP Q4H PRN PRN Reason: Nausea/Vomiting Last Admin: 01/29/18 16:15 Dose: 4 mg Pantoprazole Sodium (Protonix Ec Tab) 40 mg PO 0600 [facility] Last Admin: 02/04/18 07:52 Dose: Not Given Sodium Bicarbonate (Sodium Bicarbonate Tab) 1,300 mg PO TID [facility] Last Admin: 02/04/18 13:09 Dose: 1,300 mg Vitamin B Complex/Vit C/Folic Acid (Nephro-Jenny) 1 tab PO 0800 [facility] Last Admin: 02/04/18 10:53 Dose: 1 tab - Labs Labs: 02/04/18 06:20 02/04/18 06:20 PT 13.1 SECONDS (9.4-12.5) H 01/26/18 19:44 INR 1.15 01/26/18 19:44 APTT 27.8 Seconds (25.1-36.5) 01/26/18 19:44 Attending/Attestation - Attestation I have personally seen and examined this patient.: Yes I have fully participated in the care of the patient.: Yes I have reviewed all pertinent clinical information, including history, physical exam and plan: Yes Notes (Text): 02/04/18 14:48 Medical record note made by the resident after discussion with my direction and input after the patient was personally seen and examined by me. I have reviewed the chart and agree that the record accurately reflects by personal performance of the history, physical exam, data review, and medical decision-making, in the course for the patient. I have also personally directed the plan of care. 62 yrs old Female with PMH of DM2 (last A1c 7.3), HTN, CKD IV, OA, and hell osteomyelitis was admitted following an episode of starring with slurred speech , patient is back to her base line.There is no focal deficit.MRI of Brain showed 2 inconsequential meningioma, . Patient is on Keppra for seizure, Neuro surgery was consulted.Plan to repeat MRI with contrast in one month .Patient is on Keppra., Bilateral foot wound .Right- multiple plantar wounds noted, grade 2, no malodor, no probe to bone, no tunneling, minimal drainage noted, 100% granular base Left- multiple plantar wounds noted, with minimal serous drainage noted, no probe to probe, no tunneling, no malodor, 100% granular base. Wound cultures growing MRSA, Left foot X ray is concerning for osteomyelitis,started on Vancomycin, ID is consulted,Podiatry is following. Chronically Elevated LFT, H/O dilated CBD .GI is consulted, no plan for intervention at this time. Acute on chronic renal improving, mild hyperkalemia, Creatinin came down to 1.3 We will monitor.
--- NOTE | 2018-01-29 15:55 | CARD ---
APPROVED REPORT Date of service: 01/29/2018 EKG Measurement Heart [id number] <Conclusion> Sinus tachycardia with short LA Right atrial enlargement LVH STTW changes c/w ischemia Prolonged QTc Electrical artifact present.
[2018-01-29] MEDS ORDERED: Mupirocin 2% Ointment 15 GM TUBE TOP SCH (18:00)
[2018-01-29] MEDS: Mupirocin 2% Ointment 15 GM TUBE TOP SCH (18:12)
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
[2018-01-29] MEDS: Linezolid 600 mg in D5W 300 ml 600 MG/300 ML BAG IVPB SCH (23:07)
[2018-01-30] MEDS: Sodium Chloride 0.9% 1,000 ML IV SCH ×2 (05:06→17:37)
[2018-01-30] MEDS: Pantoprazole 40 mg EC Tab PO SCH (05:41)
[2018-01-30 07:31] LABS: BASO # 0.01 K/mm3 (0.0-2.0); BASO % 0.1 % (0.0-3.0); EOS # 0.3 (0.0-0.7); EOS % 2.4 % (1.5-5.0); GRAN # 9.88 (1.4-6.5); GRAN % 86.7 % (50.0-68.0); HEMOGLOBIN 10.6 g/dL (12.0-16.0); LYMPH # 0.5 (1.2-3.4); LYMPH % 4.7 % (22.0-35.0); MEAN CELL VOLUME 92.7 fl (80.0-105.0); MEAN CORPUSCULAR HEMOGLOBIN 29.6 pg (25.0-35.0); MEAN CORPUSCULAR HGB CONC 31.9 g/dl (31.0-37.0); MEAN PLATELET VOLUME 10.3 fl (7.0-11.0); MONO # 0.7 (0.1-0.6); MONO % 6.1 % (1.0-6.0); PLATELET COUNT 207 10^3/uL (120.0-450.0); RBC 3.58 10^6/uL (3.5-6.1); RED CELL DISTRIBUTION WIDTH 14.5 % (11.5-14.5); WHITE BLOOD COUNT 11.4 10^3/uL (4.5-11.0)
[2018-01-30 07:51] LABS: ALBUMIN 3.5 g/dL (3.0-4.8)
[2018-01-30 08:37] LABS: LYMPHOCYTE 4 % (22.0-35.0); NEUTROPHIL 80 % (50.0-70.0)
[2018-01-30 08:38] LABS: BAND 10 % (0-2); EOSINOPHIL 3 % (0.0-3.0); MONOCYTE 3 % (1.0-6.0); PLATELET ESTIMATE NORMAL (NORMAL)
[2018-01-30] MEDS ORDERED: Magnesium Sulfate 2 gm/50 ml 2 GM/50 ML BAG IVPB ONE (08:43)
--- NOTE | 2018-01-30 09:39 | CP.PCM.PN ---
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 Cr worse today - suspect related to either hypotension/prerenal v infection related atn. Given hypotension overnight - agree w/ fluids, RN just repeated bp bedside systolic up to 120. Monitor I/O. Pt incontinent suggest consider bladder scan to make sure no retention. No ACEI/ARB due to FREDY and hypotension can continue bicarb - improving s/p ananesp 60 mcg on 01/28/19, as needed PRBC transfusion would not recommend JOANNA w/ MRI given the FREDY today S: seen and examiend, hypotensive overnight - ? reaction to vaqncomycin General Appearance: Comfortable, in no acute respiratory distress, co-operative. thin built. Vitals reviewed and noted Head; Atraumatic, normocephalic ENT: no ulcers no thrush. Tongue is midline. Oropharynx: no rash or ulcers. Hard of hearing. Uses hearing aid. EYES: Pupils are equal, round and reactive to light accommodation. Eye muscles and extraocular movement intact. Sclera is anicteric. Neck; supple no lymphadenopathy, no thyromegaly or bruit Lungs: Normal respiratory rate/effort. Breath sounds bilateral equal and clear Heart: Increased rate. s1s2 normal. No rub or gallop. Extremities: no edema with wound dressed at feet. No varicose veins. Hand osteoarthritic deformities +. Neurological: Patient is alert, awake and oriented to person, place and time. No focal deficit. Strength bilateral appropriate and equal Skin: Warm and dry. Normal turgor. Palpitation: Normal elasticity for age. Abdomen: Abdomen is soft. Bowel sounds +. There is no abdominal tenderness, no guarding/rigidity or organomegaly Psych: normal insight and normal affect/mood MSK: no joint tenderness or swelling. hands swelling noted : kidney or bladder not palpable Labs/imaging reviewed. Past medical history, past surgical history, family history, social history, allergy reviewed and noted as below Family hx: no hx of CKD. Rest non-contributory Work up: 09/13/2016: GN serologies all negative, scleroderma work up neg, SPEP/LUDY neg Renal sono: b/l cortical atrophy. Small 1 cm Rt kidney simple cyst. Objective - Vital Signs/Intake and Output Vital Signs (last 24 hours): Temp Pulse Resp BP Pulse Ox 98.4 F 99 H 18 83/44 L 97 01/30/18 06:00 01/30/18 06:00 01/30/18 06:00 01/30/18 06:00 01/30/18 06:00 Intake and Output: 01/30/18 01/30/18 06:59 18:59 Intake Total 120 Balance 120 - Medications Medications: Current Medications Aspirin (Ecotrin) 81 mg PO DAILY [facility] Last Admin: 01/29/18 10:38 Dose: 81 mg Heparin Sodium (Porcine) (Heparin) 5,000 units SC Q8 [facility]; Protocol Last Admin: 01/30/18 05:41 Dose: 5,000 units Linezolid (Zyvox 600mg/300ml D5w) 600 mg in 300 mls @ 200 mls/hr IVPB Q12 [facility]; Protocol Last Admin: 01/29/18 23:07 Dose: 200 mls/hr Sodium Chloride (Sodium Chloride 0.9%) 1,000 mls @ 100 mls/hr IV .Q10H [facility] Last Admin: 01/30/18 05:06 Dose: 100 mls/hr Magnesium Sulfate (Magnesium Sulfate 2 Gm/50 Ml Water) 2 gm in 50 mls @ 50 mls/hr IVPB ONCE ONE Stop: 01/30/18 09:42 Insulin Human Regular (Humulin R Med) 0 units SC ACHS [facility]; Protocol Last Admin: 01/29/18 23:05 Dose: Not Given Levetiracetam (Keppra) 500 mg PO BID [facility] Last Admin: 01/29/18 18:15 Dose: 500 mg Lorazepam (Ativan) 1 mg IVP Q4H PRN; Protocol PRN Reason: Seizure activity Metoprolol Succinate (Toprol Xl) 50 mg PO DAILY [facility] Last Admin: 01/29/18 10:37 Dose: 50 mg Mupirocin (Bactroban Ointment) 0 gm TOP BID [facility] Last Admin: 01/29/18 18:12 Dose: 1 applic Ondansetron HCl (Zofran Inj) 4 mg IVP Q4H PRN PRN Reason: Nausea/Vomiting Last Admin: 01/29/18 16:15 Dose: 4 mg Pantoprazole Sodium (Protonix Ec Tab) 40 mg PO 0600 [facility] Last Admin: 01/30/18 05:41 Dose: 40 mg Sodium Bicarbonate (Sodium Bicarbonate Tab) 1,300 mg PO TID [facility] Last Admin: 01/29/18 18:14 Dose: 1,300 mg Vitamin B Complex/Vit C/Folic Acid (Nephro-Jenny) 1 tab PO 0800 [facility] Last Admin: 01/29/18 10:38 Dose: Not Given - Labs Labs: 01/30/18 07:00 01/30/18 07:00 PT 13.1 SECONDS (9.4-12.5) H 01/26/18 19:44 INR 1.15 01/26/18 19:44 APTT 27.8 Seconds (25.1-36.5) 01/26/18 19:44
--- NOTE | 2018-01-30 09:56 | CP.PCM.PN ---
Subjective - Date & Time of Evaluation Date of Evaluation: 01/30/18 Time of Evaluation: 09:50 - Subjective Subjective: Neurology Progress Note for Dr. Potter Patient seen and examined at bedside. No acute overnight events. Patient offers no complaints. Patient denied CP, SOB, n/v/d, abdominal pain, fever, chills, and CHAMBERS. Objective - Vital Signs/Intake and Output Vital Signs (last 24 hours): Temp Pulse Resp BP Pulse Ox 98.4 F 99 H 18 83/44 L 97 01/30/18 06:00 01/30/18 06:00 01/30/18 06:00 01/30/18 06:00 01/30/18 06:00 Intake and Output: 01/30/18 01/30/18 06:59 18:59 Intake Total 120 Balance 120 - Medications Medications: Current Medications Aspirin (Ecotrin) 81 mg PO DAILY [facility] Last Admin: 01/29/18 10:38 Dose: 81 mg Heparin Sodium (Porcine) (Heparin) 5,000 units SC Q8 [facility]; Protocol Last Admin: 01/30/18 05:41 Dose: 5,000 units Linezolid (Zyvox 600mg/300ml D5w) 600 mg in 300 mls @ 200 mls/hr IVPB Q12 [facility]; Protocol Last Admin: 01/29/18 23:07 Dose: 200 mls/hr Sodium Chloride (Sodium Chloride 0.9%) 1,000 mls @ 100 mls/hr IV .Q10H [facility] Last Admin: 01/30/18 05:06 Dose: 100 mls/hr Insulin Human Regular (Humulin R Med) 0 units SC ACHS [facility]; Protocol Last Admin: 01/29/18 23:05 Dose: Not Given Levetiracetam (Keppra) 500 mg PO BID [facility] Last Admin: 01/29/18 18:15 Dose: 500 mg Lorazepam (Ativan) 1 mg IVP Q4H PRN; Protocol PRN Reason: Seizure activity Metoprolol Succinate (Toprol Xl) 50 mg PO DAILY [facility] Last Admin: 01/29/18 10:37 Dose: 50 mg Mupirocin (Bactroban Ointment) 0 gm TOP BID [facility] Last Admin: 01/29/18 18:12 Dose: 1 applic Ondansetron HCl (Zofran Inj) 4 mg IVP Q4H PRN PRN Reason: Nausea/Vomiting Last Admin: 01/29/18 16:15 Dose: 4 mg Pantoprazole Sodium (Protonix Ec Tab) 40 mg PO 0600 [facility] Last Admin: 01/30/18 05:41 Dose: 40 mg Sodium Bicarbonate (Sodium Bicarbonate Tab) 1,300 mg PO TID [facility] Last Admin: 01/29/18 18:14 Dose: 1,300 mg Vitamin B Complex/Vit C/Folic Acid (Nephro-Jenny) 1 tab PO 0800 [facility] Last Admin: 01/29/18 10:38 Dose: Not Given - Labs Labs: 01/30/18 07:00 01/30/18 07:00 PT 13.1 SECONDS (9.4-12.5) H 01/26/18 19:44 INR 1.15 01/26/18 19:44 APTT 27.8 Seconds (25.1-36.5) 01/26/18 19:44 - Constitutional Appears: No Acute Distress - Head Exam Head Exam: NORMAL INSPECTION - Eye Exam Eye Exam: Normal appearance - ENT Exam ENT Exam: Mucous Membranes Moist - Respiratory Exam Respiratory Exam: Clear to Ausculation Bilateral. absent: Rales, Rhonchi, Wheezes - Cardiovascular Exam Cardiovascular Exam: REGULAR RHYTHM, RRR - GI/Abdominal Exam GI & Abdominal Exam: Soft. absent: Distended, Guarding, Tenderness - Neurological Exam Neurological Exam: Alert, Awake, CN II-XII Intact, Oriented x3 - Psychiatric Exam Psychiatric exam: Normal Affect - Skin Skin Exam: Normal Color Assessment and Plan - Assessment and Plan (Free Text) Assessment: 62 yo F with PMH of DM2, HTN, CKD, OA, osteomyelitis presented to [facility] [place] for due to a witnessed, unresponsive period, where she stared off in to space. Neurology was consulted for possible seizure. Patient likely had a complex partial seizure in the left frontal region, consistent with her left frontal meningioma. Plan: - CT head showed chronic left basal ganglia infarct, 2 calcified moderately sized meningiomas int he right occipital and left frontal regions - Brain MRI showed 1.7 cm lesion in the posterior right temporal region likely soft tissue mass, 1.8 cm left frontal benign meningioma, and 2.1 cm right posterior fossa meningioma - MRA brain, head, neck negative - EEG read, normal - Cont Keppra 500 mg BID Patient seen and discussed in detail with Dr. Potter. Darrin Maria DO PGY2
[2018-01-30] MEDS: Metoprolol Succinate 50 mg XL Tab PO SCH (10:20)
[2018-01-30] MEDS: Linezolid 600 mg in D5W 300 ml 600 MG/300 ML BAG IVPB SCH ×2 (10:21→22:42)
[2018-01-30] MEDS: Mupirocin 2% Ointment 15 GM TUBE TOP SCH (10:21)
[2018-01-30] MEDS: Insulin Reg-MEDIUM-Coverage SC SCH ×4 (10:22→23:32)
--- NOTE | 2018-01-30 10:23 | CP.PCM.PN ---
<DucCleo rouse - Last Filed: 01/30/18 10:19> Subjective - Date & Time of Evaluation Date of Evaluation: 01/30/18 Time of Evaluation: 10:19 - Subjective Subjective: Podiatry progress note for Dr. Mattson, 62 y/o female seen and evaluated at bedside with Dr. Mattson for bilateral lower extremity wounds. Patient is resting comfortably in bed, and states she feels much better at this time. Patient has multipodus boots on at this time, however, patient can wear only as needed. Patient states she had a fever overnight, and also complained of N/V at this time. Patient reports feeling much better at this time Objective - Vital Signs/Intake and Output Vital Signs (last 24 hours): Temp Pulse Resp BP Pulse Ox 98.4 F 99 H 18 83/44 L 97 01/30/18 06:00 01/30/18 06:00 01/30/18 06:00 01/30/18 06:00 01/30/18 06:00 Intake and Output: 01/30/18 01/30/18 06:59 18:59 Intake Total 120 Balance 120 - Medications Medications: Current Medications Aspirin (Ecotrin) 81 mg PO DAILY [facility] Last Admin: 01/29/18 10:38 Dose: 81 mg Heparin Sodium (Porcine) (Heparin) 5,000 units SC Q8 [facility]; Protocol Last Admin: 01/30/18 05:41 Dose: 5,000 units Linezolid (Zyvox 600mg/300ml D5w) 600 mg in 300 mls @ 200 mls/hr IVPB Q12 [facility]; Protocol Last Admin: 01/29/18 23:07 Dose: 200 mls/hr Sodium Chloride (Sodium Chloride 0.9%) 1,000 mls @ 100 mls/hr IV .Q10H [facility] Last Admin: 01/30/18 05:06 Dose: 100 mls/hr Insulin Human Regular (Humulin R Med) 0 units SC ACHS [facility]; Protocol Last Admin: 01/29/18 23:05 Dose: Not Given Levetiracetam (Keppra) 500 mg PO BID [facility] Last Admin: 01/29/18 18:15 Dose: 500 mg Lorazepam (Ativan) 1 mg IVP Q4H PRN; Protocol PRN Reason: Seizure activity Metoprolol Succinate (Toprol Xl) 50 mg PO DAILY [facility] Last Admin: 01/29/18 10:37 Dose: 50 mg Mupirocin (Bactroban Ointment) 0 gm TOP BID [facility] Last Admin: 01/29/18 18:12 Dose: 1 applic Ondansetron HCl (Zofran Inj) 4 mg IVP Q4H PRN PRN Reason: Nausea/Vomiting Last Admin: 01/29/18 16:15 Dose: 4 mg Pantoprazole Sodium (Protonix Ec Tab) 40 mg PO 0600 [facility] Last Admin: 01/30/18 05:41 Dose: 40 mg Sodium Bicarbonate (Sodium Bicarbonate Tab) 1,300 mg PO TID [facility] Last Admin: 01/29/18 18:14 Dose: 1,300 mg Vitamin B Complex/Vit C/Folic Acid (Nephro-Jenny) 1 tab PO 0800 [facility] Last Admin: 01/29/18 10:38 Dose: Not Given - Labs Labs: 01/30/18 07:00 01/30/18 07:00 PT 13.1 SECONDS (9.4-12.5) H 01/26/18 19:44 INR 1.15 01/26/18 19:44 APTT 27.8 Seconds (25.1-36.5) 01/26/18 19:44 - Constitutional Appears: Well, Non-toxic, No Acute Distress - Head Exam Head Exam: ATRAUMATIC, NORMOCEPHALIC - Extremities Exam Additional comments: Lower extremity focused examination: Vasc: DP/PT pulses palpable 2/4 B/L. Temperature gradient warm to warm from proximal to distal. Cap refill time: < 3 sec to all digits, mild non-pitting edema noted on bilateral LE (R>L) Derm: Right- multiple plantar wounds noted, grade 2, no malodor, no probe to bone, no tunneling, minimal drainage noted, 100% granular base Left- multiple plantar wounds noted, with minimal serous drainage noted, no probe to probe, no tunneling, no malodor, 100% granular base, mild erythema noted to the dorsum of left foot with increased warmth Neuro: Protective sensation is grossly intact B/L Ortho: Mild tenderness to palpation of right foot wound. Left ankle ulceration mildly tender - Neurological Exam Neurological Exam: Alert, Awake, Oriented x3 - Psychiatric Exam Psychiatric exam: Normal Affect, Normal Mood Assessment and Plan - Assessment and Plan (Free Text) Assessment: 62 y/o female seen with multiple bilateral feet wounds with cellulitis Plan: Patient seen and evaluated Plan discussed with Dr. Mattson Wound Culture: MRSA Wounds cleansed with saline, and dressed with xeroform, gauze, ABD, and Kerlix Rx: Bactroban for the application to the wounds Patient to wear Multipodus boots as needed Ordered MRI of bilateral feet to r/o osteomyelitis Podiatry will continue to follow patient while in house <Leatha Mattson - Last Filed: 02/02/18 14:52> Objective - Vital Signs/Intake and Output Vital Signs (last 24 hours): Temp Pulse Resp BP Pulse Ox 98.6 F 110 H 20 156/70 H 99 02/02/18 06:00 02/02/18 10:41 02/02/18 06:00 02/02/18 10:41 02/02/18 06:00 - Medications Medications: Current Medications Aspirin (Ecotrin) 81 mg PO DAILY [facility] Last Admin: 02/02/18 10:40 Dose: 81 mg Heparin Sodium (Porcine) (Heparin) 5,000 units SC Q8 [facility]; Protocol Last Admin: 02/02/18 14:49 Dose: 5,000 units Vancomycin HCl (Vancomycin 750 Mg In Ns) 750 mg in 250 mls @ 167 mls/hr IVPB DAILY [facility]; Protocol Last Admin: 02/02/18 10:41 Dose: 167 mls/hr Insulin Human Regular (Humulin R Med) 0 units SC ACHS [facility]; Protocol Last Admin: 02/02/18 12:18 Dose: Not Given Levetiracetam (Keppra) 500 mg PO BID [facility] Last Admin: 02/02/18 10:40 Dose: 500 mg Lorazepam (Ativan) 1 mg IVP Q4H PRN; Protocol PRN Reason: Seizure activity Metoprolol Succinate (Toprol Xl) 50 mg PO DAILY [facility] Last Admin: 02/02/18 10:41 Dose: 50 mg Mupirocin (Bactroban Ointment) 0 gm TOP BID [facility] Last Admin: 02/02/18 10:40 Dose: 1 applic Ondansetron HCl (Zofran Inj) 4 mg IVP Q4H PRN PRN Reason: Nausea/Vomiting Last Admin: 01/29/18 16:15 Dose: 4 mg Pantoprazole Sodium (Protonix Ec Tab) 40 mg PO 0600 [facility] Last Admin: 02/02/18 05:35 Dose: 40 mg Sodium Bicarbonate (Sodium Bicarbonate Tab) 1,300 mg PO TID [facility] Last Admin: 02/02/18 14:49 Dose: 1,300 mg Vitamin B Complex/Vit C/Folic Acid (Nephro-Jenny) 1 tab PO 0800 [facility] Last Admin: 01/29/18 10:38 Dose: Not Given - Labs Labs: 02/02/18 06:00 02/02/18 06:00 PT 13.1 SECONDS (9.4-12.5) H 01/26/18 19:44 INR 1.15 01/26/18 19:44 APTT 27.8 Seconds (25.1-36.5) 01/26/18 19:44 Attending/Attestation - Attestation I have personally seen and examined this patient.: Yes I have fully participated in the care of the patient.: Yes I have reviewed all pertinent clinical information, including history, physical exam and plan: Yes
--- NOTE | 2018-01-30 11:50 | RAD ---
Date of service: 01/30/2018 HISTORY: r/o pna COMPARISON: 09/25/2017. FINDINGS: LUNGS: No active pulmonary disease. PLEURA: No significant pleural effusion identified, no pneumothorax apparent. CARDIOVASCULAR: No atherosclerotic calcification present Normal. OSSEOUS STRUCTURES: No significant abnormalities. VISUALIZED UPPER ABDOMEN: Normal. OTHER FINDINGS: None. IMPRESSION: No active disease. No significant interval change compared to the prior examination(s).
--- NOTE | 2018-01-30 14:00 | CP.PCM.PN ---
Subjective - Date & Time of Evaluation Date of Evaluation: 01/30/18 Time of Evaluation: 13:00 - Subjective Subjective: Infectious Disease Follow Up: January 30, 2018 62 yo female with PMH of DM2 (last A1c 7.3), HTN, CKD IV, OA, and osteomyelitis presented to ED with slurred speech concerning for CVA. Patient was seen and manjit luated at bedside by Podiatry. Patient denies fever/chills, CP, SOB, nausea or vomiting and states she feels much better since ED arrival. Patient states she regularly sees Dr. Raymond and Twila for wound care in the wound care center. MRSA seen in foot wounds. Fever of 100.5 F one time overnight. Patient stating that she feels better today. On Zyvox currently. Objective - Vital Signs/Intake and Output Vital Signs (last 24 hours): Temp Pulse Resp BP Pulse Ox 98.4 F 94 H 18 124/55 L 97 01/30/18 06:00 01/30/18 10:20 01/30/18 06:00 01/30/18 10:20 01/30/18 06:00 Intake and Output: 01/30/18 01/30/18 06:59 18:59 Intake Total 120 Balance 120 - Medications Medications: Current Medications Aspirin (Ecotrin) 81 mg PO DAILY [facility] Last Admin: 01/30/18 10:20 Dose: 81 mg Heparin Sodium (Porcine) (Heparin) 5,000 units SC Q8 [facility]; Protocol Last Admin: 01/30/18 05:41 Dose: 5,000 units Linezolid (Zyvox 600mg/300ml D5w) 600 mg in 300 mls @ 200 mls/hr IVPB Q12 [facility]; Protocol Last Admin: 01/30/18 10:21 Dose: 200 mls/hr Sodium Chloride (Sodium Chloride 0.9%) 1,000 mls @ 100 mls/hr IV .Q10H [facility] Last Admin: 01/30/18 05:06 Dose: 100 mls/hr Insulin Human Regular (Humulin R Med) 0 units SC ACHS [facility]; Protocol Last Admin: 01/30/18 10:22 Dose: 1 unit Levetiracetam (Keppra) 500 mg PO BID [facility] Last Admin: 01/30/18 10:20 Dose: 500 mg Lorazepam (Ativan) 1 mg IVP Q4H PRN; Protocol PRN Reason: Seizure activity Metoprolol Succinate (Toprol Xl) 50 mg PO DAILY [facility] Last Admin: 01/30/18 10:20 Dose: 50 mg Mupirocin (Bactroban Ointment) 0 gm TOP BID [facility] Last Admin: 01/30/18 10:21 Dose: 1 applic Ondansetron HCl (Zofran Inj) 4 mg IVP Q4H PRN PRN Reason: Nausea/Vomiting Last Admin: 01/29/18 16:15 Dose: 4 mg Pantoprazole Sodium (Protonix Ec Tab) 40 mg PO 0600 [facility] Last Admin: 01/30/18 05:41 Dose: 40 mg Sodium Bicarbonate (Sodium Bicarbonate Tab) 1,300 mg PO TID [facility] Last Admin: 01/30/18 10:20 Dose: 1,300 mg Vitamin B Complex/Vit C/Folic Acid (Nephro-Jenny) 1 tab PO 0800 [facility] Last Admin: 01/29/18 10:38 Dose: Not Given - Labs Labs: 01/30/18 07:00 01/30/18 07:00 PT 13.1 SECONDS (9.4-12.5) H 01/26/18 19:44 INR 1.15 01/26/18 19:44 APTT 27.8 Seconds (25.1-36.5) 01/26/18 19:44 - Constitutional Appears: Non-toxic, No Acute Distress, Chronically Ill - Head Exam Head Exam: ATRAUMATIC, NORMOCEPHALIC - Eye Exam Eye Exam: EOMI, PERRL Pupil Exam: NORMAL ACCOMODATION, PERRL - ENT Exam ENT Exam: Mucous Membranes Moist, Normal External Ear Exam, TM's Normal Bilaterally - Neck Exam Neck Exam: Full ROM, Normal Inspection - Respiratory Exam Respiratory Exam: Clear to Ausculation Bilateral, NORMAL BREATHING PATTERN. absent: Rales, Rhonchi, Wheezes - Cardiovascular Exam Cardiovascular Exam: REGULAR RHYTHM, RRR, +S1, +S2 - GI/Abdominal Exam GI & Abdominal Exam: Soft, Normal Bowel Sounds. absent: Distended, Tenderness - Extremities Exam Additional comments: Vasc: DP/PT pulses palpable 2/4 B/L. Temperature gradient warm to warm from proximal to distal. Cap refill time: < 3 sec to all digits, mild non-pitting edema noted on bilateral LE (R>L) Derm: Right- multiple plantar wounds noted, grade 2, no malodor, no probe to bone, no tunneling, minimal drainage noted, 100% granular base Left- multiple plantar wounds noted, with minimal serous drainage noted, no probe to probe, no tunneling, no malodor, 100% granular base Neuro: Protective sensation is grossly intact B/L Ortho: Mild tenderness to palpation of right foot wound. Left ankle ulceration mildly tender Cultures: MRSA in wound culture. - Neurological Exam Neurological Exam: Alert, Awake, CN II-XII Intact, Oriented x3 - Psychiatric Exam Psychiatric exam: Normal Affect, Normal Mood - Skin Additional comments: As above Assessment and Plan - Assessment and Plan (Free Text) Assessment: 62 yo female with DM2 (last A1c 7.3), HTN, CKD IV, OA, and osteomyelitis presenting with slurred speech. Found to have MRSA in wound cultures taken by podiatry. Dr. Raymond debrided left foot wounds. Question of osteomyelitis. Bactoban used on wounds. Supportive care. On Zyvox given the patient's renal issues. Noted fever of 100.5 F last night... only one episode. Stating that she clinically feels better. Thank you for allowing me to participate in the care of the patient, we will follow with you.
--- NOTE | 2018-01-30 14:50 | CP.PCM.PN ---
<Adilson Burdick - Last Filed: 01/30/18 14:44> Subjective - Date & Time of Evaluation Date of Evaluation: 01/30/18 Time of Evaluation: 13:00 - Subjective Subjective: INTERNAL MEDICINE PROGRESS NOTE Adilson Burdick PGY-1 Pt seen and examined at bedside this am. Nursing staff report pt has 1 episode of yellow, non-bilious vomiting yesterday. She was scheduled for MRI w/ and w/o contrast however was not done d/t pts renal status. MRI reordered w/o contrast. Upon interview, she reports no complaints. She denies episodes of vomiting this am. She denies fevers, chills, headache, dizziness, cough, chest pain, palpitations, shortness of breath, nausea, vomiting and diarrhea. Objective - Vital Signs/Intake and Output Vital Signs (last 24 hours): Temp Pulse Resp BP Pulse Ox 98.2 F 109 H 18 119/49 L 100 01/30/18 14:00 01/30/18 14:00 01/30/18 14:00 01/30/18 14:00 01/30/18 14:00 Intake and Output: 01/30/18 01/30/18 06:59 18:59 Intake Total 120 Balance 120 - Medications Medications: Current Medications Aspirin (Ecotrin) 81 mg PO DAILY [facility] Last Admin: 01/30/18 10:20 Dose: 81 mg Heparin Sodium (Porcine) (Heparin) 5,000 units SC Q8 [facility]; Protocol Last Admin: 01/30/18 05:41 Dose: 5,000 units Linezolid (Zyvox 600mg/300ml D5w) 600 mg in 300 mls @ 200 mls/hr IVPB Q12 [facility]; Protocol Last Admin: 01/30/18 10:21 Dose: 200 mls/hr Sodium Chloride (Sodium Chloride 0.9%) 1,000 mls @ 100 mls/hr IV .Q10H [facility] Last Admin: 01/30/18 05:06 Dose: 100 mls/hr Insulin Human Regular (Humulin R Med) 0 units SC ACHS [facility]; Protocol Last Admin: 01/30/18 10:22 Dose: 1 unit Levetiracetam (Keppra) 500 mg PO BID [facility] Last Admin: 01/30/18 10:20 Dose: 500 mg Lorazepam (Ativan) 1 mg IVP Q4H PRN; Protocol PRN Reason: Seizure activity Metoprolol Succinate (Toprol Xl) 50 mg PO DAILY [facility] Last Admin: 01/30/18 10:20 Dose: 50 mg Mupirocin (Bactroban Ointment) 0 gm TOP BID [facility] Last Admin: 01/30/18 10:21 Dose: 1 applic Ondansetron HCl (Zofran Inj) 4 mg IVP Q4H PRN PRN Reason: Nausea/Vomiting Last Admin: 01/29/18 16:15 Dose: 4 mg Pantoprazole Sodium (Protonix Ec Tab) 40 mg PO 0600 [facility] Last Admin: 01/30/18 05:41 Dose: 40 mg Sodium Bicarbonate (Sodium Bicarbonate Tab) 1,300 mg PO TID [facility] Last Admin: 01/30/18 10:20 Dose: 1,300 mg Vitamin B Complex/Vit C/Folic Acid (Nephro-Jenny) 1 tab PO 0800 [facility] Last Admin: 01/29/18 10:38 Dose: Not Given - Labs Labs: 01/30/18 07:00 01/30/18 07:00 PT 13.1 SECONDS (9.4-12.5) H 01/26/18 19:44 INR 1.15 01/26/18 19:44 APTT 27.8 Seconds (25.1-36.5) 01/26/18 19:44 - Constitutional Appears: Well, Non-toxic, No Acute Distress - Head Exam Head Exam: NORMAL INSPECTION, NORMOCEPHALIC - Eye Exam Eye Exam: EOMI, Normal appearance - ENT Exam ENT Exam: Mucous Membranes Moist, Normal Exam - Neck Exam Neck Exam: Full ROM, Normal Inspection - Respiratory Exam Respiratory Exam: Decreased Breath Sounds (RLL), NORMAL BREATHING PATTERN - Cardiovascular Exam Cardiovascular Exam: REGULAR RHYTHM, +S1, +S2 - GI/Abdominal Exam GI & Abdominal Exam: Soft. absent: Tenderness - Extremities Exam Additional comments: Vasc: DP/PT pulses palpable 2/4 B/L. Temperature gradient warm to warm from proximal to distal. Cap refill time: < 3 sec to all digits, mild non-pitting edema noted on bilateral LE (R>L) Derm: Right- multiple plantar wounds noted, grade 2, no malodor, no probe to bone, no tunneling, minimal drainage noted, 100% granular base Left- multiple plantar wounds noted, with minimal serous drainage noted, no probe to probe, no tunneling, no malodor, 100% granular base Neuro: Protective sensation is grossly intact B/L Ortho: Mild tenderness to palpation of right foot wound. Left ankle ulceration mildly tender Cultures: MRSA in wound culture. - Back Exam Back Exam: NORMAL INSPECTION - Neurological Exam Neurological Exam: Alert, Awake, Oriented x3 - Psychiatric Exam Psychiatric exam: Normal Affect, Normal Mood - Skin Skin Exam: Dry, Intact, Warm Assessment and Plan - Assessment and Plan (Free Text) Assessment: 62 yo F with PMH of DM2 (last A1c 7.3), HTN, CKD IV, OA, and osteomyelitis is admitted following an episode of slurred speech for neurological and other work up. Will continue to monitor pt as on exam pt is no longer having any acute neurologic deficits. Plan: Dysarthria 2/2 Complex partial seizure 24 hr EEG read by neuro. normal Continue Keppra 500BID per recs Neurosurgery consulted d/t MRI changes. Recommend repeating MRI in one month. Repeat MRI with contrast once renal function stabilizes Patient has no hx of prior episodes, no hx of seizures Dysarthria has resolved now CT head without evidence of acute intracranial hemorrhage Neuro check q4h Aspiration and seizure pxns Ativan q4h PRN for any additional seizure activity PT evaluate and treat Sepsis likely 2/2 osteomyelitis L foot wound culture growing MRSA WBC increased today. Hypotensive Continue zyvox given pts renal issues per ID recs f/u L foot MRI bactroban for the wounds f/u podiatry recs FREDY and CKD stage IV diabetic/hypertensive nephropathy Likely prerenal FREDY d/t hypotension Cr increased today. Related to hypotension/prerenal/infection Continue IV fluids No ACEI/ARB due to FREDY/hypotension continue bicarb. improving transfuse pRBC prn Nephro does not recommend JOANNA w/MRI d/t Fredy MRI w/o contrast today per podiatry recs Transaminitis Pt has hx of bile duct dilatation secondary to cholecystectomy elevated liver enzymes likely secondary to steatohepatitis. Hepatitis serology is negative GI consulted. Appreciate recs f/u abdominal ultrasound Anemia of chronic disease s/p 1u pRBC. H/H stable Consider outpatient colonoscopy if anemia is worsening or does not improve Diarrhea May be 2/2 infectious causes vs malabsorption f/u C-diff, fecal fat, leukocytes, stool cx Hx DM2 Hold metformin & januvia while inpatient ISS medium coverage Point of care fingerstick glucose ACHS PPX: DVT:SC heparin GI: protonix po Case seen, examined and discussed with attending physician, Dr. Herrera <Erendira Herrera R - Last Filed: 01/30/18 18:55> Objective - Vital Signs/Intake and Output Vital Signs (last 24 hours): Temp Pulse Resp BP Pulse Ox 98.2 F 109 H 18 119/49 L 100 01/30/18 14:00 01/30/18 14:00 01/30/18 14:00 01/30/18 14:00 01/30/18 14:00 Intake and Output: 01/30/18 01/30/18 06:59 18:59 Intake Total 120 Balance 120 - Medications Medications: Current Medications Aspirin (Ecotrin) 81 mg PO DAILY [facility] Last Admin: 01/30/18 10:20 Dose: 81 mg Heparin Sodium (Porcine) (Heparin) 5,000 units SC Q8 [facility]; Protocol Last Admin: 01/30/18 14:50 Dose: 5,000 units Linezolid (Zyvox 600mg/300ml D5w) 600 mg in 300 mls @ 200 mls/hr IVPB Q12 [facility]; Protocol Last Admin: 01/30/18 10:21 Dose: 200 mls/hr Sodium Chloride (Sodium Chloride 0.9%) 1,000 mls @ 100 mls/hr IV .Q10H [facility] Last Admin: 01/30/18 17:37 Dose: 100 mls/hr Insulin Human Regular (Humulin R Med) 0 units SC ACHS [facility]; Protocol Last Admin: 01/30/18 17:40 Dose: 1 unit Levetiracetam (Keppra) 500 mg PO BID [facility] Last Admin: 01/30/18 17:36 Dose: 500 mg Lorazepam (Ativan) 1 mg IVP Q4H PRN; Protocol PRN Reason: Seizure activity Metoprolol Succinate (Toprol Xl) 50 mg PO DAILY [facility] Last Admin: 01/30/18 10:20 Dose: 50 mg Mupirocin (Bactroban Ointment) 0 gm TOP BID [facility] Last Admin: 01/30/18 10:21 Dose: 1 applic Ondansetron HCl (Zofran Inj) 4 mg IVP Q4H PRN PRN Reason: Nausea/Vomiting Last Admin: 01/29/18 16:15 Dose: 4 mg Pantoprazole Sodium (Protonix Ec Tab) 40 mg PO 0600 [facility] Last Admin: 01/30/18 05:41 Dose: 40 mg Sodium Bicarbonate (Sodium Bicarbonate Tab) 1,300 mg PO TID [facility] Last Admin: 01/30/18 17:36 Dose: 1,300 mg Vitamin B Complex/Vit C/Folic Acid (Nephro-Jenny) 1 tab PO 0800 [facility] Last Admin: 01/29/18 10:38 Dose: Not Given - Labs Labs: 01/30/18 07:00 01/30/18 07:00 PT 13.1 SECONDS (9.4-12.5) H 01/26/18 19:44 INR 1.15 01/26/18 19:44 APTT 27.8 Seconds (25.1-36.5) 01/26/18 19:44 Attending/Attestation - Attestation I have personally seen and examined this patient.: Yes I have fully participated in the care of the patient.: Yes I have reviewed all pertinent clinical information, including history, physical exam and plan: Yes Notes (Text): Patient seen and examined by me with resident at 10:55AM on 01/30/18. Case including HPI, physical exam, and assessment and plan discussed with resident. Agree with above with following additions/corrections. Patient is 62-year-old female with past medical history significant for type 2 diabetes, hypertension, chronic kidney disease stage IV, osteoarthritis, and osteomyelitis presented to the emergency room with slurred speech and possible seizure. Patient states that she is feeling ok. States she is having pain in her bilateral lower extremities. Patient denies any chest pain or shortness of breath. No headaches or dizziness. No fevers or chills. No nausea, vomiting, or abdominal pain. No dysuria. Physical exam: General: Awake and alert lying in bed in no acute distress. Cachectic appearing HEENT: Normocephalic, atraumatic. Extraocular muscles intact, pupils equal and reactive, no scleral icterus. Oropharynx is pink and moist. Neck is supple. Cardiovascular: Normal rhythm. Normal S1 and S2. No murmurs, rubs, or gallops appreciated Pulmonary: Normal respiratory effort. No rhonchi, rales, or wheezing appreciated. Gastrointestinal: Soft, nondistended. Nontender. Positive bowel sounds all 4 quadrants. No guarding. Musculoskeletal: Moves all extremities. No calf tenderness. No edema appreciated. Bilateral feet dressing clean, dry, and intact. Central nervous system: AAOx3 Dermatologic: Skin warm and dry. Assessment and plan: Patient is 62-year-old female with past medical history significant for type 2 diabetes, hypertension, chronic kidney disease stage IV, osteoarthritis, and osteomyelitis presented to the emergency room with slurred speech and possible seizure. 1. Sepsis likely secondary to cellulitis and likely osteomyelitis. Wound culture positive for MRSA. Procalcitonin 146.85. Patient with leukocytosis. Patient febrile overnight. Blood cultures and urine cultures pending. Continue Zyvox. Continue IV fluids. Hypotension resolved. Chest x-ray per radiologist showed no active disease. 2. Bilateral feet wounds and cellulitis. Pending bilateral feet MRI. Podiatry following, recommendations appreciated. On culture positive for MRSA. Continue Multi-Podus boots as needed. Continue local wound care. Lower extremity CASSIDY exam per radiologist showed relatively normal CASSIDY and PVR examination at rest. Left foot x-ray per radiologist showed question small soft tissue ulcer along the plantar aspect of the foot near distal metatarsal level. Right foot x-ray per radiologist showed is overall stable as compared to right foot radiographs performed 06/26/2017. 3. Dysarthria. Secondary to complex partial seizure. Per neurology EEG was within normal limits. Brain MRI per radiologist showed 1.7 cm ill-defined area of diminished T1, increased long TR and increased diffusion-weighted signal at the posterior right temporal lobe felt to likely reflect potential soft tissue mass, infarction is not favored; left frontal lesion likely reflects a benign meningioma 1.8 cm, additionally likely meningioma right posterior fossa 2.[address] per radiologist showed chronic left basal ganglia hypodensity consistent with lacunar infarct; left frontal and right posterior fossa masses reidentified and remain consistent with meningiomas. Head MRA per radiologist showed unremarkable MR angiography of the brain. Neurology recommendations appreciated. Neurosurgery recommendations appreciated. Continue Keppra 500 mg by mouth twice a day. Patient to have repeat MRI in one month. Continue Ativan as needed for seizure activity. 4. FREDY. Creatinine 2.5. Maybe secondary to hypoperfusion secondary to hypotension. Continue with IV fluids. Nephrology following, recommendations appreciated. Continue Nephro-Jenny and sodium bicarbonate. 5. Transaminitis. Abdominal ultrasound per radiology showed unremarkable abdominal sonogram. GI following, recommendations appreciated. Per GI, she with chronically dilated common bile duct secondary to cholecystectomy, elevated liver enzymes secondary to steatohepatitis. Further GI workup planned. Hep panel negative. Continue to monitor LFTs. 6. Anemia of chronic disease. H&H stable. Patient status post 1 unit packed red blood cells on 01/27/2018. Continue to monitor. 7 . Essential hypertension. Continue metoprolol. 8. Type 2 diabetes. Continue insulin sliding scale. Continue to monitor Accu- Cheks. 9. Diarrhea. Stool culture negative. No diarrhea reported over night per nurse. Continue to monitor. 10. GI/DVT prophylaxis. Protonix/heparin. Case was discussed in detail with the patient regarding current diagnosis and treatment plan. All questions answered.
[2018-01-30 14:56] LABS: PH,URINE 5.5 (4.7-8.0); URINE BILIRUBIN NEGATIVE (NEGATIVE); URINE BLOOD SMALL (NEGATIVE); URINE GLUCOSE (UA) 100 mg/dL (NEGATIVE); URINE LEUKOCYTE ESTERASE NEGATIVE Leu/uL (NEGATIVE); URINE PROTEIN 100 mg/dL (<30 mg/dL); URINE UROBILINOGEN 0.2 E.U./dL (<1 E.U./dL)
[2018-01-30 15:02] LABS: URINE APPEARANCE CLEAR (CLEAR); URINE COLOR YELLOW (YELLOW)
[2018-01-30 15:14] LABS: URINE WBC 0 - 2 /hpf (0-6)
[2018-01-30 15:15] LABS: URINE AMORPHOUS SEDIMENT FEW; URINE BACTERIA MANY (NEG); URINE COARSE GRANULAR CAST SMALL /hpf (0-2); URINE FINE GRANULAR CAST 0 - 2 /hpf (0-2); URINE HYALINE CAST 0 - 2 /hpf
[2018-01-31] MEDS: Pantoprazole 40 mg EC Tab PO SCH (06:44)
[2018-01-31 06:58] LABS: EOS # 0.3 (0.0-0.7); EOS % 7.1 % (1.5-5.0); GRAN # 2.85 (1.4-6.5); HEMOGLOBIN 10.5 g/dL (12.0-16.0); LYMPH # 1.2 (1.2-3.4); LYMPH % 24.1 % (22.0-35.0); MEAN CELL VOLUME 92.2 fl (80.0-105.0); MEAN CORPUSCULAR HEMOGLOBIN 29.1 pg (25.0-35.0); MEAN CORPUSCULAR HGB CONC 31.5 g/dl (31.0-37.0); MEAN PLATELET VOLUME 10.4 fl (7.0-11.0); MONO # 0.5 (0.1-0.6); MONO % 9.8 % (1.0-6.0); RBC 3.61 10^6/uL (3.5-6.1); RED CELL DISTRIBUTION WIDTH 14.6 % (11.5-14.5); WHITE BLOOD COUNT 4.8 10^3/uL (4.5-11.0)
[2018-01-31 07:33] LABS: ALB/GLOB RATIO 1.1 (1.1-1.8); ALBUMIN 3.7 g/dL (3.0-4.8); CALCIUM 9.4 mg/dL (8.4-10.5)
[2018-01-31] MEDS: Insulin Reg-MEDIUM-Coverage SC SCH ×4 (09:56→22:27)
[2018-01-31] MEDS: Mupirocin 2% Ointment 15 GM TUBE TOP SCH ×2 (09:57→17:37)
[2018-01-31] MEDS: Metoprolol Succinate 50 mg XL Tab PO SCH (09:58)
--- NOTE | 2018-01-31 11:10 | CP.PCM.PN ---
Subjective - Date & Time of Evaluation Date of Evaluation: 01/31/18 Time of Evaluation: 11:05 - Subjective Subjective: Podiatry progress note for Dr. Mattson, 62 y/o female patient seen and evaluated at bedside for bilateral lower extremity wounds. Patient is resting comfortably in bed, She states that she feels much better at this time. Patient has multipodus boots on at this time, however, patient can wear only as needed. Patient states she had a fever overnight, Patient denies any overnight N/V/C or SOB Objective - Vital Signs/Intake and Output Vital Signs (last 24 hours): Temp Pulse Resp BP Pulse Ox 98.4 F 98 H 18 128/58 L 98 01/31/18 06:00 01/31/18 09:58 01/31/18 06:00 01/31/18 09:58 01/31/18 06:00 Intake and Output: 01/31/18 01/31/18 06:59 18:59 Intake Total 360 Balance 360 - Medications Medications: Current Medications Aspirin (Ecotrin) 81 mg PO DAILY [facility] Last Admin: 01/31/18 09:58 Dose: 81 mg Heparin Sodium (Porcine) (Heparin) 5,000 units SC Q8 [facility]; Protocol Last Admin: 01/31/18 06:44 Dose: 5,000 units Linezolid (Zyvox 600mg/300ml D5w) 600 mg in 300 mls @ 200 mls/hr IVPB Q12 [facility]; Protocol Last Admin: 01/30/18 22:42 Dose: 200 mls/hr Sodium Chloride (Sodium Chloride 0.9%) 1,000 mls @ 100 mls/hr IV .Q10H [facility] Last Admin: 01/30/18 17:37 Dose: 100 mls/hr Insulin Human Regular (Humulin R Med) 0 units SC ACHS [facility]; Protocol Last Admin: 01/31/18 09:56 Dose: Not Given Levetiracetam (Keppra) 500 mg PO BID [facility] Last Admin: 01/31/18 09:58 Dose: 500 mg Lorazepam (Ativan) 1 mg IVP Q4H PRN; Protocol PRN Reason: Seizure activity Metoprolol Succinate (Toprol Xl) 50 mg PO DAILY [facility] Last Admin: 01/31/18 09:58 Dose: 50 mg Mupirocin (Bactroban Ointment) 0 gm TOP BID [facility] Last Admin: 01/31/18 09:57 Dose: 2 applic Ondansetron HCl (Zofran Inj) 4 mg IVP Q4H PRN PRN Reason: Nausea/Vomiting Last Admin: 01/29/18 16:15 Dose: 4 mg Pantoprazole Sodium (Protonix Ec Tab) 40 mg PO 0600 [facility] Last Admin: 01/31/18 06:44 Dose: 40 mg Sodium Bicarbonate (Sodium Bicarbonate Tab) 1,300 mg PO TID [facility] Last Admin: 01/31/18 09:58 Dose: 1,300 mg Vitamin B Complex/Vit C/Folic Acid (Nephro-Jenny) 1 tab PO 0800 [facility] Last Admin: 01/29/18 10:38 Dose: Not Given - Labs Labs: 01/31/18 05:30 01/31/18 05:30 PT 13.1 SECONDS (9.4-12.5) H 01/26/18 19:44 INR 1.15 01/26/18 19:44 APTT 27.8 Seconds (25.1-36.5) 01/26/18 19:44 - Constitutional Appears: Well, Non-toxic, No Acute Distress - Head Exam Head Exam: ATRAUMATIC, NORMOCEPHALIC - Extremities Exam Additional comments: Lower extremity focused examination: Vasc: DP/PT pulses palpable 2/4 B/L. Temperature gradient warm to warm from proximal to distal. Cap refill time: < 3 sec to all digits, mild non-pitting edema noted on bilateral LE (R>L) Neuro: Protective sensation is grossly intact B/L Derm: Right- multiple plantar wounds noted, no malodor, no probe to bone, no tunneling, minimal drainage noted, 100% granular base Left- multiple plantar wounds noted, with no drainage noted, no probe to probe, no tunneling, no malodor, 100% granular base, mild erythema noted to the dorsum of left foot with increased warmth. all the wounds are covered with a layer of dried serous secretions. Ortho: No pain on palpation of the foot wound. Left ankle ulceration mildly tender - Neurological Exam Neurological Exam: Alert, Awake, Oriented x3 - Psychiatric Exam Psychiatric exam: Normal Affect, Normal Mood Assessment and Plan - Assessment and Plan (Free Text) Assessment: 62 y/o female patient seen with multiple bilateral feet wounds with cellulitis Plan: Patient seen and evaluated for attending Dr. Mattson Plan discussed with Dr. Mattson Wound Culture: MRSA Wounds dressed with xeroform, gauze, ABD, and Kerlix Bactroban to be applied to the wounds starting tomorrow Patient to wear Multipodus boots as needed Ordered MRI: Follow up results Podiatry will continue to follow up the patient while in house
--- NOTE | 2018-01-31 12:41 | CP.PCM.PN ---
Subjective - Date & Time of Evaluation Date of Evaluation: 01/31/18 Time of Evaluation: 12:30 - Subjective Subjective: Infectious Disease Follow Up: January 31, 2018 62 yo female with PMH of DM2 (last A1c 7.3), HTN, CKD IV, OA, and osteomyelitis presented to ED with slurred speech concerning for CVA. Patient was seen and manjit luated at bedside by Podiatry. Patient denies fever/chills, CP, SOB, nausea or vomiting and states she feels much better since ED arrival. Patient states she regularly sees Dr. Raymond and Twila for wound care in the wound care center. MRSA seen in foot wounds. Fever high of 103.5 F during this hospitalization. Patient stating that she feels better today. Afebrile the past 24 hours. Blood cultures negative at 24 hours. Objective - Vital Signs/Intake and Output Vital Signs (last 24 hours): Temp Pulse Resp BP Pulse Ox 98.4 F 98 H 18 128/58 L 98 01/31/18 06:00 01/31/18 09:58 01/31/18 06:00 01/31/18 09:58 01/31/18 06:00 Intake and Output: 01/31/18 01/31/18 06:59 18:59 Intake Total 360 Balance 360 - Medications Medications: Current Medications Aspirin (Ecotrin) 81 mg PO DAILY [facility] Last Admin: 01/31/18 09:58 Dose: 81 mg Heparin Sodium (Porcine) (Heparin) 5,000 units SC Q8 [facility]; Protocol Last Admin: 01/31/18 06:44 Dose: 5,000 units Linezolid (Zyvox 600mg/300ml D5w) 600 mg in 300 mls @ 200 mls/hr IVPB Q12 [facility]; Protocol Last Admin: 01/30/18 22:42 Dose: 200 mls/hr Sodium Chloride (Sodium Chloride 0.9%) 1,000 mls @ 100 mls/hr IV .Q10H [facility] Last Admin: 01/30/18 17:37 Dose: 100 mls/hr Insulin Human Regular (Humulin R Med) 0 units SC ACHS [facility]; Protocol Last Admin: 01/31/18 09:56 Dose: Not Given Levetiracetam (Keppra) 500 mg PO BID [facility] Last Admin: 01/31/18 09:58 Dose: 500 mg Lorazepam (Ativan) 1 mg IVP Q4H PRN; Protocol PRN Reason: Seizure activity Metoprolol Succinate (Toprol Xl) 50 mg PO DAILY [facility] Last Admin: 01/31/18 09:58 Dose: 50 mg Mupirocin (Bactroban Ointment) 0 gm TOP BID [facility] Last Admin: 01/31/18 09:57 Dose: 2 applic Ondansetron HCl (Zofran Inj) 4 mg IVP Q4H PRN PRN Reason: Nausea/Vomiting Last Admin: 01/29/18 16:15 Dose: 4 mg Pantoprazole Sodium (Protonix Ec Tab) 40 mg PO 0600 [facility] Last Admin: 01/31/18 06:44 Dose: 40 mg Sodium Bicarbonate (Sodium Bicarbonate Tab) 1,300 mg PO TID [facility] Last Admin: 01/31/18 09:58 Dose: 1,300 mg Vitamin B Complex/Vit C/Folic Acid (Nephro-Jenny) 1 tab PO 0800 [facility] Last Admin: 01/29/18 10:38 Dose: Not Given - Labs Labs: 01/31/18 05:30 01/31/18 05:30 PT 13.1 SECONDS (9.4-12.5) H 01/26/18 19:44 INR 1.15 01/26/18 19:44 APTT 27.8 Seconds (25.1-36.5) 01/26/18 19:44 - Constitutional Appears: Non-toxic, No Acute Distress, Chronically Ill - Head Exam Head Exam: ATRAUMATIC, NORMOCEPHALIC - Eye Exam Eye Exam: EOMI, PERRL Pupil Exam: NORMAL ACCOMODATION, PERRL - ENT Exam ENT Exam: Mucous Membranes Moist, Normal External Ear Exam, TM's Normal Bilaterally - Neck Exam Neck Exam: Full ROM, Normal Inspection - Respiratory Exam Respiratory Exam: Clear to Ausculation Bilateral, NORMAL BREATHING PATTERN. absent: Rales, Rhonchi, Wheezes - Cardiovascular Exam Cardiovascular Exam: REGULAR RHYTHM, RRR, +S1, +S2 - GI/Abdominal Exam GI & Abdominal Exam: Soft, Normal Bowel Sounds. absent: Distended, Tenderness - Extremities Exam Additional comments: Vasc: DP/PT pulses palpable 2/4 B/L. Temperature gradient warm to warm from proximal to distal. Cap refill time: < 3 sec to all digits, mild non-pitting edema noted on bilateral LE (R>L) Derm: Right- multiple plantar wounds noted, grade 2, no malodor, no probe to bone, no tunneling, minimal drainage noted, 100% granular base Left- multiple plantar wounds noted, with minimal serous drainage noted, no probe to probe, no tunneling, no malodor, 100% granular base Neuro: Protective sensation is grossly intact B/L Ortho: Mild tenderness to palpation of right foot wound. Left ankle ulceration mildly tender Cultures: MRSA in wound culture. - Neurological Exam Neurological Exam: Alert, Awake, CN II-XII Intact, Oriented x3 - Psychiatric Exam Psychiatric exam: Normal Affect, Normal Mood - Skin Additional comments: As above. Assessment and Plan - Assessment and Plan (Free Text) Assessment: 62 yo female with DM2 (last A1c 7.3), HTN, CKD IV, OA, and osteomyelitis presenting with slurred speech. Found to have MRSA in wound cultures taken by podiatry. Dr. Raymond debrided left foot wounds. Question of osteomyelitis. Bactoban used on wounds. Supportive care. On Zyvox given the patient's renal issues. Noted fever of 103.5 F during this hospitalization. Afebrile the past 24 hours. Stating that she feels better. Blood cultures negative at 24 hours. Thank you for allowing me to participate in the care of the patient, we will follow with you.
--- NOTE | 2018-01-31 14:10 | CP.PCM.PN ---
<Bear Atkins - Last Filed: 01/31/18 14:05> Subjective - Date & Time of Evaluation Date of Evaluation: 01/31/18 Time of Evaluation: 14:05 - Subjective Subjective: PGY1 Medicine Progress Note for Dr. Thelma Herrera Patient seen and examined at bedside this morning. No acute events overnight. Patient denies more episodes of vomiting. ROS also unremarkable for fevers, chills, headache, dizziness, cough, chest pain, palpitations, shortness of breath, nausea, vomiting and/or diarrhea. Objective - Vital Signs/Intake and Output Vital Signs (last 24 hours): Temp Pulse Resp BP Pulse Ox 98.4 F 98 H 18 128/58 L 98 01/31/18 06:00 01/31/18 09:58 01/31/18 06:00 01/31/18 09:58 01/31/18 06:00 Intake and Output: 01/31/18 01/31/18 06:59 18:59 Intake Total 360 Balance 360 - Medications Medications: Current Medications Aspirin (Ecotrin) 81 mg PO DAILY [facility] Last Admin: 01/31/18 09:58 Dose: 81 mg Heparin Sodium (Porcine) (Heparin) 5,000 units SC Q8 [facility]; Protocol Last Admin: 01/31/18 06:44 Dose: 5,000 units Linezolid (Zyvox 600mg/300ml D5w) 600 mg in 300 mls @ 200 mls/hr IVPB Q12 [facility]; Protocol Last Admin: 01/30/18 22:42 Dose: 200 mls/hr Sodium Chloride (Sodium Chloride 0.9%) 1,000 mls @ 100 mls/hr IV .Q10H [facility] Last Admin: 01/30/18 17:37 Dose: 100 mls/hr Insulin Human Regular (Humulin R Med) 0 units SC ACHS [facility]; Protocol Last Admin: 01/31/18 09:56 Dose: Not Given Levetiracetam (Keppra) 500 mg PO BID [facility] Last Admin: 01/31/18 09:58 Dose: 500 mg Lorazepam (Ativan) 1 mg IVP Q4H PRN; Protocol PRN Reason: Seizure activity Metoprolol Succinate (Toprol Xl) 50 mg PO DAILY [facility] Last Admin: 01/31/18 09:58 Dose: 50 mg Mupirocin (Bactroban Ointment) 0 gm TOP BID [facility] Last Admin: 01/31/18 09:57 Dose: 2 applic Ondansetron HCl (Zofran Inj) 4 mg IVP Q4H PRN PRN Reason: Nausea/Vomiting Last Admin: 01/29/18 16:15 Dose: 4 mg Pantoprazole Sodium (Protonix Ec Tab) 40 mg PO 0600 [facility] Last Admin: 01/31/18 06:44 Dose: 40 mg Sodium Bicarbonate (Sodium Bicarbonate Tab) 1,300 mg PO TID [facility] Last Admin: 01/31/18 09:58 Dose: 1,300 mg Vitamin B Complex/Vit C/Folic Acid (Nephro-Jenny) 1 tab PO 0800 [facility] Last Admin: 01/29/18 10:38 Dose: Not Given - Labs Labs: 01/31/18 05:30 01/31/18 05:30 PT 13.1 SECONDS (9.4-12.5) H 01/26/18 19:44 INR 1.15 01/26/18 19:44 APTT 27.8 Seconds (25.1-36.5) 01/26/18 19:44 - Additional Findings Additional findings: -Constitutional Appears: Well, Non-toxic, No Acute Distress - Head Exam Head Exam: NORMAL INSPECTION, NORMOCEPHALIC - Eye Exam Eye Exam: EOMI, Normal appearance - ENT Exam ENT Exam: Mucous Membranes Moist, Normal Exam - Neck Exam Neck Exam: Full ROM, Normal Inspection - Respiratory Exam Respiratory Exam: Decreased Breath Sounds (RLL), NORMAL BREATHING PATTERN - Cardiovascular Exam Cardiovascular Exam: REGULAR RHYTHM, +S1, +S2 - GI/Abdominal Exam GI & Abdominal Exam: Soft. absent: Tenderness - Extremities Exam Additional comments: Vasc: DP/PT pulses palpable 2/4 B/L. Temperature gradient warm to warm from proximal to distal. Cap refill time: < 3 sec to all digits, mild non-pitting edema noted on bilateral LE (R>L) Derm: Right- multiple plantar wounds noted, grade 2, no malodor, no probe to bone, no tunneling, minimal drainage noted, 100% granular base Left- multiple plantar wounds noted, with minimal serous drainage noted, no probe to probe, no tunneling, no malodor, 100% granular base Neuro: Protective sensation is grossly intact B/L Ortho: Mild tenderness to palpation of right foot wound. Left ankle ulceration mildly tender Cultures: MRSA in wound culture. - Back Exam Back Exam: NORMAL INSPECTION - Neurological Exam Neurological Exam: Alert, Awake, Oriented x3 - Psychiatric Exam Psychiatric exam: Normal Affect, Normal Mood - Skin Skin Exam: Dry, Intact, Warm Assessment and Plan - Assessment and Plan (Free Text) Assessment: 62-year-old Female with PMH of Type 2 Diabetes Mellitus (Most recent HgbA1c 7.3), HTN, CKD Stage IV, OA, and osteomyelitis is admitted following an episode of slurred speech for neurological and other work up. Will continue to monitor patient as on exam patient is no longer having any acute neurological deficits. Plan: Dysarthria 2/2 Complex partial seizure 24 hr EEG read by neuro. normal Continue Keppra 500BID per recs Neurosurgery consulted d/t MRI changes. Recommend repeating MRI in one month. Repeat MRI with contrast once renal function stabilizes Patient has no hx of prior episodes, no hx of seizures Dysarthria has resolved now CT head without evidence of acute intracranial hemorrhage Neuro check q4h Aspiration and seizure pxns Ativan q4h PRN for any additional seizure activity PT evaluate and treat Sepsis likely 2/2 osteomyelitis L foot wound culture growing MRSA WBC increased today. Hypotensive Continue zyvox given pts renal issues per ID recs Follow-up L foot MRI Bactroban for the wounds Follow-up podiatry recs CATRACHITA and CKD stage IV Diabetic/hypertensive nephropathy Likely prerenal CATRACHITA d/t hypotension Cr increased today. Related to hypotension/prerenal/infection Continue IV fluids No ACEI/ARB due to CATRACHITA/hypotension continue bicarb. improving Transfuse pRBC prn Nephro does not recommend JOANNA w/MRI d/t Catrachita MRI without contrast ordered per podiatry recs Transaminitis Patient has hx of bile duct dilatation secondary to cholecystectomy Elevated liver enzymes likely secondary to steatohepatitis. Hepatitis serology is negative GI consulted. Appreciate recs Follow-up abdominal ultrasound Anemia of chronic disease Status-post 1u pRBC. H/H stable Consider outpatient colonoscopy if anemia is worsening or does not improve Diarrhea May be secondary to infectious causes vs malabsorption Follow-up C-diff, fecal fat, leukocytes, stool cx Hx DM2 Hold metformin & januvia while inpatient ISS medium coverage Point of care fingerstick glucose ACHS PPX: DVT:SC heparin GI: protonix po Patient seen and case discussed in detail with Dr. Thelma Atkins PGY1 <Erendira Herrera R - Last Filed: 02/01/18 17:41> Objective - Vital Signs/Intake and Output Vital Signs (last 24 hours): Temp Pulse Resp BP Pulse Ox 98.2 F 105 H 16 121/71 99 02/01/18 14:00 02/01/18 14:00 02/01/18 14:00 02/01/18 14:00 02/01/18 14:00 - Medications Medications: Current Medications Aspirin (Ecotrin) 81 mg PO DAILY [facility] Last Admin: 02/01/18 10:58 Dose: 81 mg Heparin Sodium (Porcine) (Heparin) 5,000 units SC Q8 [facility]; Protocol Last Admin: 02/01/18 16:50 Dose: 5,000 units Sodium Chloride (Sodium Chloride 0.9%) 1,000 mls @ 100 mls/hr IV .Q10H [facility] Last Admin: 02/01/18 17:19 Dose: 100 mls/hr Vancomycin HCl (Vancomycin 750 Mg In Ns) 750 mg in 250 mls @ 167 mls/hr IVPB DAILY [facility]; Protocol Insulin Human Regular (Humulin R Med) 0 units SC ACHS [facility]; Protocol Last Admin: 02/01/18 17:32 Dose: Not Given Levetiracetam (Keppra) 500 mg PO BID [facility] Last Admin: 02/01/18 17:32 Dose: 500 mg Lorazepam (Ativan) 1 mg IVP Q4H PRN; Protocol PRN Reason: Seizure activity Metoprolol Succinate (Toprol Xl) 50 mg PO DAILY [facility] Last Admin: 02/01/18 10:57 Dose: 50 mg Mupirocin (Bactroban Ointment) 0 gm TOP BID [facility] Last Admin: 02/01/18 17:33 Dose: 1 applic Ondansetron HCl (Zofran Inj) 4 mg IVP Q4H PRN PRN Reason: Nausea/Vomiting Last Admin: 01/29/18 16:15 Dose: 4 mg Pantoprazole Sodium (Protonix Ec Tab) 40 mg PO 0600 [facility] Last Admin: 02/01/18 05:49 Dose: 40 mg Sodium Bicarbonate (Sodium Bicarbonate Tab) 1,300 mg PO TID [facility] Last Admin: 02/01/18 17:32 Dose: 1,300 mg Vitamin B Complex/Vit C/Folic Acid (Nephro-Jenny) 1 tab PO 0800 [facility] Last Admin: 01/29/18 10:38 Dose: Not Given - Labs Labs: 02/01/18 06:20 02/01/18 06:20 PT 13.1 SECONDS (9.4-12.5) H 01/26/18 19:44 INR 1.15 01/26/18 19:44 APTT 27.8 Seconds (25.1-36.5) 01/26/18 19:44 Attending/Attestation - Attestation I have personally seen and examined this patient.: Yes I have fully participated in the care of the patient.: Yes I have reviewed all pertinent clinical information, including history, physical exam and plan: Yes Notes (Text): ]Patient seen and examined by me with resident at 9:50AM on 01/31/18. Case including HPI, physical exam, and assessment and plan discussed with resident. Agree with above with following additions/corrections. Patient is 62-year-old female with past medical history significant for type 2 diabetes, hypertension, chronic kidney disease stage IV, osteoarthritis, and osteomyelitis presented to the emergency room with slurred speech and possible seizure. Patient states that she is not feeling great. Complains of pain in her bilateral legs as well as arms today. Pain is constant and worse with movement. No radiation of pain. Patient denies chest pain or shortness of breath. No headaches or dizziness. No fevers or chills. No nausea, vomiting, or abdominal pain. No dysuria. Per patient's nurse, no diarrhea overnight. Physical exam: General: Awake and alert lying in bed in no acute distress. Cachectic appearing HEENT: Normocephalic, atraumatic. Extraocular muscles intact, pupils equal and reactive, no scleral icterus. Oropharynx is pink and moist. Neck is supple. Cardiovascular: Normal rhythm. Normal S1 and S2. No murmurs, rubs, or gallops appreciated Pulmonary: Normal respiratory effort. No rhonchi, rales, or wheezing apprecia tommy. Gastrointestinal: Soft, nondistended. Nontender. Positive bowel sounds all 4 quadrants. No guarding. Musculoskeletal: Moves all extremities. No calf tenderness. No edema appreciated. Bilateral feet dressing clean, dry, and intact. Central nervous system: AAOx3 Dermatologic: Skin warm and dry. Assessment and plan: Patient is 62-year-old female with past medical history significant for type 2 diabetes, hypertension, chronic kidney disease stage IV, osteoarthritis, and osteomyelitis presented to the emergency room with slurred speech and possible seizure. 1. Sepsis likely secondary to cellulitis and likely osteomyelitis. Wound culture positive for MRSA. Procalcitonin 146.85. Leukocytosis resolved. Patient now afebrile. Blood cultures negative. Urine cultures pending. Continue Zyvox. Continue IV fluids. Hypotension resolved. Chest x-ray per radiologist showed no active disease. 2. Bilateral feet wounds and cellulitis. Pending bilateral feet MRI. Osteomyelitis suspected. Podiatry following, recommendations appreciated. On culture positive for MRSA. Continue Multi-Podus boots as needed. Continue local wound care. Lower extremity CASSIDY exam per radiologist showed relatively normal CASSIDY and PVR examination at rest. Left foot x-ray per radiologist showed question small soft tissue ulcer along the plantar aspect of the foot near distal metatarsal level. Right foot x-ray per radiologist showed is overall stable as compared to right foot radiographs performed 06/26/2017. 3. Dysarthria. Secondary to complex partial seizure. Resolved. Continue Keppra 500 mg by mouth twice a day. Patient will require repeat MRI in one month. Continue Ativan as needed for seizure activity. Per neurology EEG was within normal limits. Brain MRI per radiologist showed 1.7 cm ill-defined area of di minished T1, increased long TR and increased diffusion-weighted signal at the posterior right temporal lobe felt to likely reflect potential soft tissue mass, infarction is not favored; left frontal lesion likely reflects a benign meningioma 1.8 cm, additionally likely meningioma right posterior fossa 2.[address] per radiologist showed chronic left basal ganglia hypodensity consistent with lacunar infarct; left frontal and right posterior fossa masses reidentified and remain consistent with meningiomas. Head MRA per radiologist showed unremarkable MR angiography of the brain. Neurology recommendations appreciated. Neurosurgery recommendations appreciated. 4. CATRACHITA. Creatinine downtrending. Continue with IV fluids. Nephrology following, recommendations appreciated. Continue Nephro-Jenny and sodium bicarbonate. 5. Transaminitis. Uptrending. Abdominal ultrasound per radiology showed unr emarkable abdominal sonogram. GI following, recommendations appreciated. Per GI, patient has chronically dilated common bile duct secondary to cholecystectomy, elevated liver enzymes secondary to steatohepatitis. Further GI workup planned. Hep panel negative. Continue to monitor LFTs. 6. Anemia of chronic disease. H&H stable. Patient status post 1 unit packed red blood cells on 01/27/2018. Continue to monitor CBC 7 . Essential hypertension. Continue metoprolol. 8. Type 2 diabetes. Continue insulin sliding scale. Continue to monitor Accu- Cheks. 9. Diarrhea. Stool culture negative. No diarrhea reported over night per nurse. Continue to monitor. 10. GI/DVT prophylaxis. Protonix/heparin. Case was discussed in detail with the patient regarding current diagnosis and treatment plan. All questions answered.
[2018-01-31] MEDS: Linezolid 600 mg in D5W 300 ml 600 MG/300 ML BAG IVPB SCH (22:31)
[2018-02-01] MEDS: Pantoprazole 40 mg EC Tab PO SCH (05:49)
[2018-02-01 07:01] LABS: BASO # 0.01 K/mm3 (0.0-2.0); BASO % 0.2 % (0.0-3.0); EOS # 0.4 (0.0-0.7); EOS % 9.4 % (1.5-5.0); GRAN # 2.03 (1.4-6.5); GRAN % 48.7 % (50.0-68.0); HEMOGLOBIN 9.1 g/dL (12.0-16.0); LYMPH # 1.3 (1.2-3.4); LYMPH % 31.9 % (22.0-35.0); MEAN CELL VOLUME 92.6 fl (80.0-105.0); MEAN CORPUSCULAR HEMOGLOBIN 29.4 pg (25.0-35.0); MEAN CORPUSCULAR HGB CONC 31.8 g/dl (31.0-37.0); MEAN PLATELET VOLUME 10.6 fl (7.0-11.0); MONO # 0.4 (0.1-0.6); MONO % 9.8 % (1.0-6.0); RBC 3.09 10^6/uL (3.5-6.1); RED CELL DISTRIBUTION WIDTH 14.3 % (11.5-14.5); WHITE BLOOD COUNT 4.2 10^3/uL (4.5-11.0)
[2018-02-01 07:27] LABS: ALBUMIN 3.1 g/dL (3.0-4.8); CALCIUM 8.6 mg/dL (8.4-10.5)
[2018-02-01] MEDS: Insulin Reg-MEDIUM-Coverage SC SCH ×4 (08:00→22:02)
[2018-02-01] MEDS: Metoprolol Succinate 50 mg XL Tab PO SCH (10:57)
[2018-02-01] MEDS: Linezolid 600 mg in D5W 300 ml 600 MG/300 ML BAG IVPB SCH ×3 (10:58→16:32)
[2018-02-01] MEDS: Mupirocin 2% Ointment 15 GM TUBE TOP SCH ×2 (10:58→17:33)
--- NOTE | 2018-02-01 13:08 | CP.PCM.PN ---
Subjective - Date & Time of Evaluation Date of Evaluation: 02/01/18 Time of Evaluation: 13:06 - Subjective Subjective: Nephrology Consultation Note: Assessment: Stable seizure foot infection ? 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 No ACEI/ARB due to FREDY and hyperkalemia. maintain hemodynamics stable. avoid hypotension Monitor Input/Output, daily weights and renal function with basic metabolic panel continue Sodium bicarb 1300 mg tid dose of ananesp 60 mcg on 01/28/19, as needed PRBC transfusion continue with IVF ID and GI following Dose meds/antibiotics for reduced GFR. Avoid fleets enema/magnesium based laxatives. Avoid nephrotoxins/NSAIDs/ iodinated contrast (unless needed emergently) Glycemic control Further work up/management as per primary team Thanks for allowing me to participate in care of your patient. Will follow patient with you. Please call if any Qs. had d/w team Dr Javier Reyes Office: [phone] CC; seizure HPI: Pt is a 62 y/o F with hx of diabetes Mellitus ( x 8-9 years) with retinopathy, hypertension, hearing loss, esophageal stenosis, chronic anemia, basal cell CA on nasal skin s/p removal, recurrent AKIs, now has CKD stage 3 with anemia, acidosis and hyperkalemia, dehydration with limited oral intake and incr GI fluid loss came with seizure. renal consult for FREDY and lytes management. pt also planned for MRI brain w/c Denies chest pain, palpitation, shortness of breath, leg swelling. Has chronic loose stool 2-3 times/day but better now a days. ROS: pt c.o skin rash. no CP/SOB. no pain abdomen. all other negative General Appearance: uncomfortable, in no acute respiratory distress, co- operative. thin built. Vitals reviewed and noted Head; Atraumatic, normocephalic ENT: no ulcers no thrush. Tongue is midline. Oropharynx: no rash or ulcers. Hard of hearing. Uses hearing aid. EYES: Pupils are equal, round and reactive to light accommodation. Eye muscles and extraocular movement intact. Sclera is anicteric. Neck; supple no lymphadenopathy, no thyromegaly or bruit Lungs: Normal respiratory rate/effort. Breath sounds bilateral equal and clear Heart: normal rate. s1s2 normal. No rub or gallop. Extremities: no edema with wound dressed at feet. No varicose veins. Hand osteoarthritic deformities +. Neurological: Patient is alert, awake and oriented to person, place and time. No focal deficit. Strength bilateral appropriate and equal Skin: Warm and dry. Normal turgor. Palpitation: Normal elasticity for age. has rash in lower/upper extremities Abdomen: Abdomen is soft. Bowel sounds +. There is no abdominal tenderness, no guarding/rigidity or organomegaly Psych: normal insight and normal affect/mood MSK: no joint tenderness or swelling. hands swelling noted : kidney or bladder not palpable Labs/imaging reviewed. Past medical history, past surgical history, family history, social history, allergy reviewed and noted as below Family hx: no hx of CKD. Rest non-contributory Work up: 09/13/2016: GN serologies all negative, scleroderma work up neg, SPEP/LUDY neg Renal sono: b/l cortical atrophy. Small 1 cm Rt kidney simple cyst. Objective - Vital Signs/Intake and Output Vital Signs (last 24 hours): Temp Pulse Resp BP Pulse Ox 98.5 F 82 18 120/60 99 02/01/18 06:00 02/01/18 10:57 02/01/18 06:00 02/01/18 06:00 02/01/18 06:00 - Medications Medications: Current Medications Aspirin (Ecotrin) 81 mg PO DAILY [facility] Last Admin: 02/01/18 10:58 Dose: 81 mg Heparin Sodium (Porcine) (Heparin) 5,000 units SC Q8 [facility]; Protocol Last Admin: 02/01/18 05:48 Dose: 5,000 units Linezolid (Zyvox 600mg/300ml D5w) 600 mg in 300 mls @ 200 mls/hr IVPB Q12 [facility]; Protocol Last Admin: 02/01/18 10:59 Dose: 200 mls/hr Sodium Chloride (Sodium Chloride 0.9%) 1,000 mls @ 100 mls/hr IV .Q10H [facility] Last Admin: 01/30/18 17:37 Dose: 100 mls/hr Insulin Human Regular (Humulin R Med) 0 units SC ACHS [facility]; Protocol Last Admin: 02/01/18 12:44 Dose: 1 unit Levetiracetam (Keppra) 500 mg PO BID [facility] Last Admin: 02/01/18 10:58 Dose: 500 mg Lorazepam (Ativan) 1 mg IVP Q4H PRN; Protocol PRN Reason: Seizure activity Metoprolol Succinate (Toprol Xl) 50 mg PO DAILY [facility] Last Admin: 02/01/18 10:57 Dose: 50 mg Mupirocin (Bactroban Ointment) 0 gm TOP BID [facility] Last Admin: 02/01/18 10:58 Dose: 1 applic Ondansetron HCl (Zofran Inj) 4 mg IVP Q4H PRN PRN Reason: Nausea/Vomiting Last Admin: 01/29/18 16:15 Dose: 4 mg Pantoprazole Sodium (Protonix Ec Tab) 40 mg PO 0600 [facility] Last Admin: 02/01/18 05:49 Dose: 40 mg Sodium Bicarbonate (Sodium Bicarbonate Tab) 1,300 mg PO TID [facility] Last Admin: 02/01/18 10:57 Dose: 1,300 mg Vitamin B Complex/Vit C/Folic Acid (Nephro-Jenny) 1 tab PO 0800 [facility] Last Admin: 01/29/18 10:38 Dose: Not Given - Labs Labs: 02/01/18 06:20 02/01/18 06:20 PT 13.1 SECONDS (9.4-12.5) H 01/26/18 19:44 INR 1.15 01/26/18 19:44 APTT 27.8 Seconds (25.1-36.5) 01/26/18 19:44
--- NOTE | 2018-02-01 15:07 | CP.PCM.PN ---
<Adilson Burdick - Last Filed: 02/01/18 15:25> Subjective - Date & Time of Evaluation Date of Evaluation: 02/01/18 Time of Evaluation: 12:00 - Subjective Subjective: INTERNAL MEDICINE PROGRESS NOTE FOR DR. ANDREW Burdick PGY-1 Pt seen and examined at bedside this am. Pt report she has noticed redness of both hands and arm as well as both legs. She report the area is tender to touch. She reports soreness during the night. 12 point ROS is otherwise negative. Objective - Vital Signs/Intake and Output Vital Signs (last 24 hours): Temp Pulse Resp BP Pulse Ox 98.2 F 105 H 16 121/71 99 02/01/18 14:00 02/01/18 14:00 02/01/18 14:00 02/01/18 14:00 02/01/18 14:00 - Medications Medications: Current Medications Aspirin (Ecotrin) 81 mg PO DAILY [facility] Last Admin: 02/01/18 10:58 Dose: 81 mg Heparin Sodium (Porcine) (Heparin) 5,000 units SC Q8 [facility]; Protocol Last Admin: 02/01/18 05:48 Dose: 5,000 units Linezolid (Zyvox 600mg/300ml D5w) 600 mg in 300 mls @ 200 mls/hr IVPB Q12 [facility]; Protocol Last Admin: 02/01/18 10:59 Dose: 200 mls/hr Sodium Chloride (Sodium Chloride 0.9%) 1,000 mls @ 100 mls/hr IV .Q10H [facility] Last Admin: 01/30/18 17:37 Dose: 100 mls/hr Insulin Human Regular (Humulin R Med) 0 units SC ACHS [facility]; Protocol Last Admin: 02/01/18 12:44 Dose: 1 unit Levetiracetam (Keppra) 500 mg PO BID [facility] Last Admin: 02/01/18 10:58 Dose: 500 mg Lorazepam (Ativan) 1 mg IVP Q4H PRN; Protocol PRN Reason: Seizure activity Metoprolol Succinate (Toprol Xl) 50 mg PO DAILY [facility] Last Admin: 02/01/18 10:57 Dose: 50 mg Mupirocin (Bactroban Ointment) 0 gm TOP BID [facility] Last Admin: 02/01/18 10:58 Dose: 1 applic Ondansetron HCl (Zofran Inj) 4 mg IVP Q4H PRN PRN Reason: Nausea/Vomiting Last Admin: 01/29/18 16:15 Dose: 4 mg Pantoprazole Sodium (Protonix Ec Tab) 40 mg PO 0600 [facility] Last Admin: 02/01/18 05:49 Dose: 40 mg Sodium Bicarbonate (Sodium Bicarbonate Tab) 1,300 mg PO TID [facility] Last Admin: 02/01/18 10:57 Dose: 1,300 mg Vitamin B Complex/Vit C/Folic Acid (Nephro-Jenny) 1 tab PO 0800 [facility] Last Admin: 01/29/18 10:38 Dose: Not Given - Labs Labs: 02/01/18 06:20 02/01/18 06:20 PT 13.1 SECONDS (9.4-12.5) H 01/26/18 19:44 INR 1.15 01/26/18 19:44 APTT 27.8 Seconds (25.1-36.5) 01/26/18 19:44 - Constitutional Appears: Well, Non-toxic, No Acute Distress - Head Exam Head Exam: NORMAL INSPECTION, NORMOCEPHALIC - Eye Exam Eye Exam: EOMI, Normal appearance - ENT Exam ENT Exam: Mucous Membranes Moist, Normal Exam - Neck Exam Neck Exam: Normal Inspection - Respiratory Exam Respiratory Exam: Clear to Ausculation Bilateral, NORMAL BREATHING PATTERN - Cardiovascular Exam Cardiovascular Exam: REGULAR RHYTHM, +S1, +S2 - GI/Abdominal Exam GI & Abdominal Exam: Soft, Normal Bowel Sounds. absent: Tenderness - Extremities Exam Extremities Exam: Normal Capillary Refill, Normal Inspection. absent: Calf Tenderness Additional comments: Vasc: DP/PT pulses palpable 2/4 B/L. Temperature gradient warm to warm from proximal to distal. Cap refill time: < 3 sec to all digits, mild non-pitting edema noted on bilateral LE (R>L) Derm: Right- multiple plantar wounds noted, grade 2, no malodor, no probe to bone, no tunneling, minimal drainage noted, 100% granular base Left- multiple plantar wounds noted, with minimal serous drainage noted, no probe to probe, no tunneling, no malodor, 100% granular base Neuro: Protective sensation is grossly intact B/L Ortho: Mild tenderness to palpation of right foot wound. Left ankle ulceration mildly tender Cultures: MRSA in wound culture - Back Exam Back Exam: NORMAL INSPECTION - Neurological Exam Neurological Exam: Alert, Awake, Oriented x3 - Psychiatric Exam Psychiatric exam: Normal Affect - Skin Skin Exam: Dry, Intact, Warm Assessment and Plan - Assessment and Plan (Free Text) Assessment: 62-year-old female with past medical history significant for type 2 diabetes, hypertension, chronic kidney disease stage IV, osteoarthritis, and osteomyelitis presented to the emergency room with slurred speech and possible seizure. Plan: Sepsis likely 2/2 osteomyelitis L foot wound culture growing MRSA Leukocytosis resolved Zyvox may be causing allergic reaction, likely secondary to serotonin syndrome Switch antibiotics based on ID recs f/u b/l foot MRI Bactroban for the wounds Follow-up podiatry recs Dysarthria 2/2 Complex partial seizure 24 hr EEG read by neuro. normal Continue Keppra 500BID per recs Neurosurgery consulted d/t MRI changes. Recommend repeating MRI in one month. Repeat MRI with contrast once renal function stabilizes Patient has no hx of prior episodes, no hx of seizures Dysarthria has resolved now CT head without evidence of acute intracranial hemorrhage Neuro check q4h Aspiration and seizure pxns Ativan q4h PRN for any additional seizure activity PT evaluate and treat FREDY and CKD stage IV Diabetic/hypertensive nephropathy Likely prerenal FREDY d/t hypotension Cr increased today. Related to hypotension/prerenal/infection Continue IV fluids No ACEI/ARB due to FREDY/hypotension continue bicarb. improving Transfuse pRBC prn Nephro does not recommend JOANNA w/MRI d/t Fredy MRI without contrast ordered per podiatry recs Transaminitis Patient has hx of bile duct dilatation secondary to cholecystectomy Elevated liver enzymes likely secondary to steatohepatitis. Hepatitis serology is negative GI consulted. Appreciate recs Abdomen ultrasound is unremarkable Anemia of chronic disease Likely secondary to underlying renal dysfunction H/H stable Consider outpatient colonoscopy if anemia is worsening or does not improve Hx DM2 Hold metformin & januvia while inpatient ISS medium coverage Point of care fingerstick glucose ACHS PPX: DVT:SC heparin GI: protonix po Case seen, examined and discussed with attending physician, Dr. Herrera <Erendira Herrera R - Last Filed: 02/01/18 17:56> Objective - Vital Signs/Intake and Output Vital Signs (last 24 hours): Temp Pulse Resp BP Pulse Ox 98.2 F 105 H 16 121/71 99 02/01/18 14:00 02/01/18 14:00 02/01/18 14:00 02/01/18 14:00 02/01/18 14:00 - Medications Medications: Current Medications Aspirin (Ecotrin) 81 mg PO DAILY [facility] Last Admin: 02/01/18 10:58 Dose: 81 mg Heparin Sodium (Porcine) (Heparin) 5,000 units SC Q8 [facility]; Protocol Last Admin: 02/01/18 16:50 Dose: 5,000 units Sodium Chloride (Sodium Chloride 0.9%) 1,000 mls @ 100 mls/hr IV .Q10H [facility] Last Admin: 02/01/18 17:19 Dose: 100 mls/hr Vancomycin HCl (Vancomycin 750 Mg In Ns) 750 mg in 250 mls @ 167 mls/hr IVPB DAILY [facility]; Protocol Insulin Human Regular (Humulin R Med) 0 units SC ACHS [facility]; Protocol Last Admin: 02/01/18 17:32 Dose: Not Given Levetiracetam (Keppra) 500 mg PO BID [facility] Last Admin: 02/01/18 17:32 Dose: 500 mg Lorazepam (Ativan) 1 mg IVP Q4H PRN; Protocol PRN Reason: Seizure activity Metoprolol Succinate (Toprol Xl) 50 mg PO DAILY [facility] Last Admin: 02/01/18 10:57 Dose: 50 mg Mupirocin (Bactroban Ointment) 0 gm TOP BID [facility] Last Admin: 02/01/18 17:33 Dose: 1 applic Ondansetron HCl (Zofran Inj) 4 mg IVP Q4H PRN PRN Reason: Nausea/Vomiting Last Admin: 01/29/18 16:15 Dose: 4 mg Pantoprazole Sodium (Protonix Ec Tab) 40 mg PO 0600 [facility] Last Admin: 02/01/18 05:49 Dose: 40 mg Sodium Bicarbonate (Sodium Bicarbonate Tab) 1,300 mg PO TID [facility] Last Admin: 02/01/18 17:32 Dose: 1,300 mg Vitamin B Complex/Vit C/Folic Acid (Nephro-Jenny) 1 tab PO 0800 [facility] Last Admin: 01/29/18 10:38 Dose: Not Given - Labs Labs: 02/01/18 06:20 02/01/18 06:20 PT 13.1 SECONDS (9.4-12.5) H 01/26/18 19:44 INR 1.15 01/26/18 19:44 APTT 27.8 Seconds (25.1-36.5) 01/26/18 19:44 Attending/Attestation - Attestation I have personally seen and examined this patient.: Yes I have fully participated in the care of the patient.: Yes I have reviewed all pertinent clinical information, including history, physical exam and plan: Yes Notes (Text): Patient seen and examined by me with resident at 11AM on 02/01/18. Case including HPI, physical exam, and assessment and plan discussed with resident. Agree with above with following additions/corrections. Patient is 62-year-old female with past medical history significant for type 2 diabetes, hypertension, chronic kidney disease stage IV, osteoarthritis, and osteomyelitis presented to the emergency room with slurred speech and possible seizure. Patient states that she is having a lot of pain in her hands and arms and its radiating to her armpits. She states she woke up this morning and her hands were red and painful. She also complains of continued pain in her bilateral legs. No chest pain or shortness of breath. No headaches or dizziness. No fevers or chills. No nausea, vomiting, or abdominal pain. No dysuria. Patient states she had diarrhea yesterday but no bowel movement today. Physical exam: General: Awake and alert lying in bed in no acute distress. Cachectic appearing HEENT: Normocephalic, atraumatic. Extraocular muscles intact, pupils equal and reactive, no scleral icterus. Oropharynx is pink and moist. Neck is supple. Cardiovascular: Normal rhythm. Normal S1 and S2. No murmurs, rubs, or gallops appreciated Pulmonary: Normal respiratory effort. No rhonchi, rales, or wheezing appreciated. Gastrointestinal: Soft, nondistended. Nontender. Positive bowel sounds all 4 quadrants. No guarding. Musculoskeletal: Moves all extremities. No calf tenderness. No edema appreciated. Bilateral feet dressing clean, dry, and intact. Positive bilateral upper extremity tenderness. Positive bilateral hands with erythema and tenderness. Central nervous system: AAOx3 Dermatologic: Skin warm and dry. Assessment and plan: Patient is 62-year-old female with past medical history significant for type 2 diabetes, hypertension, chronic kidney disease stage IV, osteoarthritis, and osteomyelitis presented to the emergency room with slurred speech and possible seizure. 1. Sepsis likely secondary to cellulitis and likely osteomyelitis. Wound culture positive for MRSA. Procalcitonin 146.85. Now with leukopenia. Remains afebrile. Blood cultures negative. Urine cultures positive for gram negative edna. Possible reaction from Zyvox. Zyvox stopped by ID and placed on vancomycin. Chest x-ray per radiologist showed no active disease. 2. Bilateral feet wounds and cellulitis. Pending bilateral feet MRI. Osteomyelitis suspected. Podiatry following, recommendations appreciated. Wound culture positive for MRSA. Continue Multi-Podus boots as needed. Continue local wound care. Lower extremity CASSIDY exam per radiologist showed relatively normal CASSIDY and PVR examination at rest. Left foot x-ray per radiologist showed question small soft tissue ulcer along the plantar aspect of the foot near distal metatarsal level. Right foot x-ray per radiologist showed is overall stable as compared to right foot radiographs performed 06/26/2017. 3. Dysarthria. Secondary to complex partial seizure. Resolved. Continue Keppra 500 mg by mouth twice a day. Patient will require repeat MRI in one month. Continue Ativan as needed for seizure activity. Per neurology EEG was within normal limits. Brain MRI per radiologist showed 1.7 cm ill-defined area of d iminished T1, increased long TR and increased diffusion-weighted signal at the posterior right temporal lobe felt to likely reflect potential soft tissue mass, infarction is not favored; left frontal lesion likely reflects a benign meningioma 1.8 cm, additionally likely meningioma right posterior fossa 2.[address] per radiologist showed chronic left basal ganglia hypodensity consistent with lacunar infarct; left frontal and right posterior fossa masses reidentified and remain consistent with meningiomas. Head MRA per radiologist showed unremarkable MR angiography of the brain. Neurology recommendations appreciated. Neurosurgery recommendations appreciated. 4. FREDY. Creatinine continues to downtrend. Continue with IV fluids. Nephrology following, recommendations appreciated. Continue Nephro-Jenny and sodium bicarbonate. 5. Transaminitis. Downtrending. Abdominal ultrasound per radiology showed unremarkable abdominal sonogram. GI following, recommendations appreciated. Per GI, patient has chronically dilated common bile duct secondary to cholecystectomy, elevated liver enzymes secondary to steatohepatitis. Further GI workup planned. Hep panel negative. Continue to monitor LFTs. 6. Anemia of chronic disease. H&H downtrended today. Stool for occult blood negative. Patient status post 1 unit packed red blood cells on 01/27/2018. Continue to monitor CBC 7. Essential hypertension. Continue metoprolol. 8. Type 2 diabetes. Continue insulin sliding scale. Continue to monitor Accu-Ch eks. 9. Diarrhea. Stool culture negative. Stool for occult blood negative. One episode of diarrhea yesterday. Continue to monitor. 10. GI/DVT prophylaxis. Protonix/heparin. Case was discussed in detail with the patient regarding current diagnosis and treatment plan. All questions answered.
--- NOTE | 2018-02-01 15:59 | CP.PCM.PN ---
Subjective - Date & Time of Evaluation Date of Evaluation: 02/01/18 Time of Evaluation: 14:00 - Subjective Subjective: Infectious Disease Follow Up: February 01, 2018 62 yo female with PMH of DM2 (last A1c 7.3), HTN, CKD IV, OA, and osteomyelitis presented to ED with slurred speech concerning for CVA. Patient was seen and manjit luated at bedside by Podiatry. Patient denies fever/chills, CP, SOB, nausea or vomiting and states she feels much better since ED arrival. Patient states she regularly sees Dr. Raymond and Twila for wound care in the wound care center. MRSA seen in foot wounds. Fever high of 103.5 F during this hospitalization. Patient stating that she feels better today. Afebrile the past 24 hours. Blood cultures negative at 24 hours. New issue this morning of swelling and erythema of the bilateral hands and arms. Serotonin syndrome? Zyvox stopped and Vancomycin restarted for now. Objective - Vital Signs/Intake and Output Vital Signs (last 24 hours): Temp Pulse Resp BP Pulse Ox 98.2 F 105 H 16 121/71 99 02/01/18 14:00 02/01/18 14:00 02/01/18 14:00 02/01/18 14:00 02/01/18 14:00 - Medications Medications: Current Medications Aspirin (Ecotrin) 81 mg PO DAILY [facility] Last Admin: 02/01/18 10:58 Dose: 81 mg Heparin Sodium (Porcine) (Heparin) 5,000 units SC Q8 [facility]; Protocol Last Admin: 02/01/18 05:48 Dose: 5,000 units Linezolid (Zyvox 600mg/300ml D5w) 600 mg in 300 mls @ 200 mls/hr IVPB Q12 [facility]; Protocol Last Admin: 02/01/18 10:59 Dose: 200 mls/hr Sodium Chloride (Sodium Chloride 0.9%) 1,000 mls @ 100 mls/hr IV .Q10H [facility] Last Admin: 01/30/18 17:37 Dose: 100 mls/hr Insulin Human Regular (Humulin R Med) 0 units SC ACHS [facility]; Protocol Last Admin: 02/01/18 12:44 Dose: 1 unit Levetiracetam (Keppra) 500 mg PO BID [facility] Last Admin: 02/01/18 10:58 Dose: 500 mg Lorazepam (Ativan) 1 mg IVP Q4H PRN; Protocol PRN Reason: Seizure activity Metoprolol Succinate (Toprol Xl) 50 mg PO DAILY [facility] Last Admin: 02/01/18 10:57 Dose: 50 mg Mupirocin (Bactroban Ointment) 0 gm TOP BID [facility] Last Admin: 02/01/18 10:58 Dose: 1 applic Ondansetron HCl (Zofran Inj) 4 mg IVP Q4H PRN PRN Reason: Nausea/Vomiting Last Admin: 01/29/18 16:15 Dose: 4 mg Pantoprazole Sodium (Protonix Ec Tab) 40 mg PO 0600 [facility] Last Admin: 02/01/18 05:49 Dose: 40 mg Sodium Bicarbonate (Sodium Bicarbonate Tab) 1,300 mg PO TID [facility] Last Admin: 02/01/18 10:57 Dose: 1,300 mg Vitamin B Complex/Vit C/Folic Acid (Nephro-Jenny) 1 tab PO 0800 [facility] Last Admin: 01/29/18 10:38 Dose: Not Given - Labs Labs: 02/01/18 06:20 02/01/18 06:20 PT 13.1 SECONDS (9.4-12.5) H 01/26/18 19:44 INR 1.15 01/26/18 19:44 APTT 27.8 Seconds (25.1-36.5) 01/26/18 19:44 - Constitutional Appears: Non-toxic, No Acute Distress, Chronically Ill - Head Exam Head Exam: ATRAUMATIC, NORMOCEPHALIC - Eye Exam Eye Exam: EOMI, PERRL Pupil Exam: NORMAL ACCOMODATION, PERRL - ENT Exam ENT Exam: Mucous Membranes Moist, Normal External Ear Exam, TM's Normal Bilaterally - Neck Exam Neck Exam: Full ROM, Normal Inspection - Respiratory Exam Respiratory Exam: Clear to Ausculation Bilateral, NORMAL BREATHING PATTERN. absent: Rales, Rhonchi, Wheezes - Cardiovascular Exam Cardiovascular Exam: REGULAR RHYTHM, RRR, +S1, +S2 - GI/Abdominal Exam GI & Abdominal Exam: Soft, Normal Bowel Sounds. absent: Distended, Tenderness - Extremities Exam Additional comments: Vasc: DP/PT pulses palpable 2/4 B/L. Temperature gradient warm to warm from proximal to distal. Cap refill time: < 3 sec to all digits, mild non-pitting edema noted on bilateral LE (R>L) Derm: Right- multiple plantar wounds noted, grade 2, no malodor, no probe to bone, no tunneling, minimal drainage noted, 100% granular base Left- multiple plantar wounds noted, with minimal serous drainage noted, no probe to probe, no tunneling, no malodor, 100% granular base Neuro: Protective sensation is grossly intact B/L Ortho: Mild tenderness to palpation of right foot wound. Left ankle ulceration mildly tender Cultures: MRSA in wound culture. Mild swelling of the bilateral lower arms. Assessment and Plan - Assessment and Plan (Free Text) Assessment: 62 yo female with DM2 (last A1c 7.3), HTN, CKD IV, OA, and osteomyelitis presenting with slurred speech. Found to have MRSA in wound cultures taken by podiatry. Dr. Raymond debrided left foot wounds. Question of osteomyelitis. Bactoban used on wounds. Supportive care. On Zyvox given the patient's renal issues. Noted fever of 103.5 F during this hospitalization. Afebrile the past 24 hours. Stating that she feels better. Blood cultures negative at 48 hours. The patient this morning developed swelling and erythema of the arms starting from the hands bilaterally. Can not rule out Serotonin Syndrome. Zyvox stopped and Vancomycin restarted. Thank you for allowing me to participate in the care of the patient, we will follow with you.
--- NOTE | 2018-02-01 16:12 | MRI ---
Date of service: 02/01/2018 PROCEDURE: MRI of the right foot without contrast HISTORY: r/o osteomyelitis COMPARISON: Plain films dated 01/27/2018 TECHNIQUE: MRI of the right foot was performed in multiple planes using multiple pulse sequences FINDINGS: Chronic bony deformities are seen of the distal metatarsals with thinning of the metatarsal head and neck throughout the foot. The 2nd 3rd and 4th toes are absent. There is metallic artifact from the proximal 1st metatarsal. There is no marrow edema to suggest acute osteomyelitis. IMPRESSION: No evidence of osteomyelitis
--- NOTE | 2018-02-01 16:55 | CP.PCM.PN ---
<Saw Youngblood - Last Filed: 02/01/18 16:47> Subjective - Date & Time of Evaluation Date of Evaluation: 02/01/18 Time of Evaluation: 16:47 - Subjective Subjective: Podiatry progress note for Dr. Raymond; 62 y/o female patient seen and evaluated at bedside for bilateral lower extremity wounds. Patient is resting comfortably in a chair at the bedside, She states that she feels better. Patient denies any pain in her feet at this time. Patient denies any overnight F/N/V/C or SOB. Patient dennies any other pedal complaint at this time. Objective - Vital Signs/Intake and Output Vital Signs (last 24 hours): Temp Pulse Resp BP Pulse Ox 98.2 F 105 H 16 121/71 99 02/01/18 14:00 02/01/18 14:00 02/01/18 14:00 02/01/18 14:00 02/01/18 14:00 - Medications Medications: Current Medications Aspirin (Ecotrin) 81 mg PO DAILY [facility] Last Admin: 02/01/18 10:58 Dose: 81 mg Heparin Sodium (Porcine) (Heparin) 5,000 units SC Q8 [facility]; Protocol Last Admin: 02/01/18 05:48 Dose: 5,000 units Sodium Chloride (Sodium Chloride 0.9%) 1,000 mls @ 100 mls/hr IV .Q10H [facility] Last Admin: 01/30/18 17:37 Dose: 100 mls/hr Vancomycin HCl (Vancomycin 750 Mg In Ns) 750 mg in 250 mls @ 167 mls/hr IVPB DAILY [facility]; Protocol Insulin Human Regular (Humulin R Med) 0 units SC ACHS [facility]; Protocol Last Admin: 02/01/18 12:44 Dose: 1 unit Levetiracetam (Keppra) 500 mg PO BID [facility] Last Admin: 02/01/18 10:58 Dose: 500 mg Lorazepam (Ativan) 1 mg IVP Q4H PRN; Protocol PRN Reason: Seizure activity Metoprolol Succinate (Toprol Xl) 50 mg PO DAILY [facility] Last Admin: 02/01/18 10:57 Dose: 50 mg Mupirocin (Bactroban Ointment) 0 gm TOP BID [facility] Last Admin: 02/01/18 10:58 Dose: 1 applic Ondansetron HCl (Zofran Inj) 4 mg IVP Q4H PRN PRN Reason: Nausea/Vomiting Last Admin: 01/29/18 16:15 Dose: 4 mg Pantoprazole Sodium (Protonix Ec Tab) 40 mg PO 0600 [facility] Last Admin: 02/01/18 05:49 Dose: 40 mg Sodium Bicarbonate (Sodium Bicarbonate Tab) 1,300 mg PO TID [facility] Last Admin: 02/01/18 10:57 Dose: 1,300 mg Vitamin B Complex/Vit C/Folic Acid (Nephro-Jenny) 1 tab PO 0800 [facility] Last Admin: 01/29/18 10:38 Dose: Not Given - Labs Labs: 02/01/18 06:20 02/01/18 06:20 PT 13.1 SECONDS (9.4-12.5) H 01/26/18 19:44 INR 1.15 01/26/18 19:44 APTT 27.8 Seconds (25.1-36.5) 01/26/18 19:44 - Constitutional Appears: Well, Non-toxic, No Acute Distress - Head Exam Head Exam: ATRAUMATIC, NORMOCEPHALIC - Extremities Exam Additional comments: Lower extremity focused examination: Vasc: DP/PT pulses palpable 2/4 B/L. Temperature gradient warm to warm from proximal to distal. Cap refill time: < 3 sec to all digits, mild non-pitting edema noted on bilateral LE (R>L) Neuro: Protective sensation is grossly intact B/L Derm: Right- multiple plantar wounds noted, no malodor, no probe to bone, no tunneling, minimal drainage noted, 100% granular base Left- multiple plantar wounds noted, with no drainage noted, no probe to probe, no tunneling, no malodor, 100% granular base, mild erythema noted to the dorsum of left foot with increased warmth. all the wounds are covered with a layer of dried serous secretions. MSK: No pain on palpation of the foot wound. Left ankle ulceration mildly tender - Neurological Exam Neurological Exam: Alert, Awake, Oriented x3 - Psychiatric Exam Psychiatric exam: Normal Affect, Normal Mood Assessment and Plan - Assessment and Plan (Free Text) Assessment: 62 y/o female patient seen with multiple bilateral feet wounds with cellulitis Plan: Patient seen and evaluated for attending Dr. Raymond Plan discussed with Dr. Raymond Wound Culture: MRSA Wounds dressed with Bactroban, gauze, ABD, and Kerlix Continue Abx as per ID. Patient to wear Multipodus boots as needed R foot MRI: No edidence of OM. Ordred b/l surgical shoe. Patient to ambulates in the surgical shoe at all times. Podiatry will continue to follow up the patient while in house <Jose Raymond - Last Filed: 02/02/18 08:40> Objective - Vital Signs/Intake and Output Vital Signs (last 24 hours): Temp Pulse Resp BP Pulse Ox 98.4 F 115 H 18 140/64 98 02/01/18 22:00 02/01/18 22:00 02/01/18 22:00 02/01/18 22:00 02/01/18 22:00 - Medications Medications: Current Medications Aspirin (Ecotrin) 81 mg PO DAILY [facility] Last Admin: 02/01/18 10:58 Dose: 81 mg Heparin Sodium (Porcine) (Heparin) 5,000 units SC Q8 [facility]; Protocol Last Admin: 02/02/18 05:34 Dose: 5,000 units Sodium Chloride (Sodium Chloride 0.9%) 1,000 mls @ 100 mls/hr IV .Q10H [facility] Last Admin: 02/01/18 17:19 Dose: 100 mls/hr Vancomycin HCl (Vancomycin 750 Mg In Ns) 750 mg in 250 mls @ 167 mls/hr IVPB DAILY [facility]; Protocol Last Admin: 02/01/18 18:56 Dose: 167 mls/hr Insulin Human Regular (Humulin R Med) 0 units SC ACHS [facility]; Protocol Last Admin: 02/02/18 08:18 Dose: Not Given Levetiracetam (Keppra) 500 mg PO BID [facility] Last Admin: 02/01/18 17:32 Dose: 500 mg Lorazepam (Ativan) 1 mg IVP Q4H PRN; Protocol PRN Reason: Seizure activity Metoprolol Succinate (Toprol Xl) 50 mg PO DAILY [facility] Last Admin: 02/01/18 10:57 Dose: 50 mg Mupirocin (Bactroban Ointment) 0 gm TOP BID [facility] Last Admin: 02/01/18 17:33 Dose: 1 applic Ondansetron HCl (Zofran Inj) 4 mg IVP Q4H PRN PRN Reason: Nausea/Vomiting Last Admin: 01/29/18 16:15 Dose: 4 mg Pantoprazole Sodium (Protonix Ec Tab) 40 mg PO 0600 [facility] Last Admin: 02/02/18 05:35 Dose: 40 mg Sodium Bicarbonate (Sodium Bicarbonate Tab) 1,300 mg PO TID [facility] Last Admin: 02/01/18 17:32 Dose: 1,300 mg Vitamin B Complex/Vit C/Folic Acid (Nephro-Jenny) 1 tab PO 0800 [facility] Last Admin: 01/29/18 10:38 Dose: Not Given - Labs Labs: 02/02/18 06:00 02/02/18 06:00 PT 13.1 SECONDS (9.4-12.5) H 01/26/18 19:44 INR 1.15 01/26/18 19:44 APTT 27.8 Seconds (25.1-36.5) 01/26/18 19:44 Attending/Attestation - Attestation I have personally seen and examined this patient.: Yes I have fully participated in the care of the patient.: Yes I have reviewed all pertinent clinical information, including history, physical exam and plan: Yes
[2018-02-01] MEDS: Sodium Chloride 0.9% 1,000 ML IV SCH (17:19)
--- NOTE | 2018-02-01 17:30 | MRI ---
Date of service: 02/01/2018 PROCEDURE: MRI of the left foot without contrast HISTORY: r/o osteomyelitis COMPARISON: Comparison is made to the previous study dated 09/08/2016 and study dated 04/12/2017 TECHNIQUE: Axial coronal and sagittal MRI images of the left foot were obtained without IV contrast administration. FINDINGS: There is interval appearance of bone marrow edema at the 1st metatarsal bone since the previous exam. There is focal bone marrow edema and possible small erosion at the plantar aspect of the calcaneus bone which is a new compared to the previous exam. The possibility of osteomyelitis should be considered. Otherwise no significant interval changes noted since the previous study. No evidence of discrete fluid collection to suggest abscess formation. Findings suspicious for plantar ulcer inferior to the proximal calcaneus bone. IMPRESSION: New focal bone marrow edema and possible cortical erosion at the plantar aspect of the mid calcaneus body suspicious for new osteomyelitis. Bone marrow edema at the 1st metatarsal bone which is also new compared to the previous exam. The possibility of osteomyelitis also should be considered. Otherwise no significant interval changes.
[2018-02-01] MEDS: Vancomycin 750mg 750 MG/250 ML BAG IVPB SCH (18:56)
[2018-02-02] MEDS: Pantoprazole 40 mg EC Tab PO SCH (05:35)
[2018-02-02 07:03] LABS: EOS # 0.3 (0.0-0.7); EOS % 5.9 % (1.5-5.0); GRAN # 3.32 (1.4-6.5); GRAN % 61.4 % (50.0-68.0); HEMOGLOBIN 9.4 g/dL (12.0-16.0); LYMPH # 1.3 (1.2-3.4); LYMPH % 23.3 % (22.0-35.0); MEAN CELL VOLUME 92.8 fl (80.0-105.0); MEAN CORPUSCULAR HEMOGLOBIN 29.4 pg (25.0-35.0); MEAN CORPUSCULAR HGB CONC 31.6 g/dl (31.0-37.0); MEAN PLATELET VOLUME 10.1 fl (7.0-11.0); MONO # 0.5 (0.1-0.6); MONO % 9.4 % (1.0-6.0); RBC 3.2 10^6/uL (3.5-6.1); RED CELL DISTRIBUTION WIDTH 14.2 % (11.5-14.5); WHITE BLOOD COUNT 5.4 10^3/uL (4.5-11.0)
[2018-02-02 07:41] LABS: ALBUMIN 3.3 g/dL (3.0-4.8); CALCIUM 8.7 mg/dL (8.4-10.5)
[2018-02-02] MEDS ORDERED: Potassium Chloride 20 mEq ER Tab PO STA (08:05)
[2018-02-02] MEDS: Insulin Reg-MEDIUM-Coverage SC SCH ×4 (08:18→21:47)
[2018-02-02] MEDS: Mupirocin 2% Ointment 15 GM TUBE TOP SCH ×2 (10:40→17:43)
[2018-02-02] MEDS: Vancomycin 750mg 750 MG/250 ML BAG IVPB SCH (10:41)
[2018-02-02] MEDS: Metoprolol Succinate 50 mg XL Tab PO SCH (10:41)
[2018-02-02] MEDS ORDERED: Aztreonam 1 Gm in NS 100mL 100 ML IVPB SCH (11:15)
--- NOTE | 2018-02-02 11:26 | CP.PCM.PN ---
<Saw Youngblood - Last Filed: 02/02/18 11:22> Subjective - Date & Time of Evaluation Date of Evaluation: 02/02/18 Time of Evaluation: 11:22 - Subjective Subjective: Podiatry progress note for Dr. Raymond; 62 y/o female patient seen and evaluated at bedside for bilateral lower extremity wounds with cellulitis and possible left foot osteomyelitis . Patient is resting comfortably in her bed, She states that she feels better today. Patient denies any pain in her feet at this time. Patient denies any overnight F/N/V/C or SOB. Patient denies any other pedal complaint at this time. Objective - Vital Signs/Intake and Output Vital Signs (last 24 hours): Temp Pulse Resp BP Pulse Ox 98.6 F 110 H 20 156/70 H 99 02/02/18 06:00 02/02/18 10:41 02/02/18 06:00 02/02/18 10:41 02/02/18 06:00 - Medications Medications: Current Medications Aspirin (Ecotrin) 81 mg PO DAILY [facility] Last Admin: 02/02/18 10:40 Dose: 81 mg Heparin Sodium (Porcine) (Heparin) 5,000 units SC Q8 [facility]; Protocol Last Admin: 02/02/18 05:34 Dose: 5,000 units Vancomycin HCl (Vancomycin 750 Mg In Ns) 750 mg in 250 mls @ 167 mls/hr IVPB DAILY [facility]; Protocol Last Admin: 02/02/18 10:41 Dose: 167 mls/hr Aztreonam (Azactam 1 Gm) 100 mls @ 100 mls/hr IVPB Q12 [facility]; Protocol Stop: 02/02/18 12:14 Insulin Human Regular (Humulin R Med) 0 units SC ACHS [facility]; Protocol Last Admin: 02/02/18 08:18 Dose: Not Given Levetiracetam (Keppra) 500 mg PO BID [facility] Last Admin: 02/02/18 10:40 Dose: 500 mg Lorazepam (Ativan) 1 mg IVP Q4H PRN; Protocol PRN Reason: Seizure activity Metoprolol Succinate (Toprol Xl) 50 mg PO DAILY [facility] Last Admin: 02/02/18 10:41 Dose: 50 mg Mupirocin (Bactroban Ointment) 0 gm TOP BID [facility] Last Admin: 02/02/18 10:40 Dose: 1 applic Ondansetron HCl (Zofran Inj) 4 mg IVP Q4H PRN PRN Reason: Nausea/Vomiting Last Admin: 01/29/18 16:15 Dose: 4 mg Pantoprazole Sodium (Protonix Ec Tab) 40 mg PO 0600 [facility] Last Admin: 02/02/18 05:35 Dose: 40 mg Sodium Bicarbonate (Sodium Bicarbonate Tab) 1,300 mg PO TID [facility] Last Admin: 02/02/18 10:40 Dose: 1,300 mg Vitamin B Complex/Vit C/Folic Acid (Nephro-Jenny) 1 tab PO 0800 [facility] Last Admin: 01/29/18 10:38 Dose: Not Given - Labs Labs: 02/02/18 06:00 02/02/18 06:00 PT 13.1 SECONDS (9.4-12.5) H 01/26/18 19:44 INR 1.15 01/26/18 19:44 APTT 27.8 Seconds (25.1-36.5) 01/26/18 19:44 - Constitutional Appears: Well, Non-toxic, No Acute Distress - Head Exam Head Exam: ATRAUMATIC, NORMOCEPHALIC - Extremities Exam Additional comments: Lower extremity focused examination: Vasc: DP/PT pulses palpable 2/4 B/L. Temperature gradient warm to warm from proximal to distal. Cap refill time: < 3 sec to all digits, mild non-pitting edema noted on bilateral LE (R>L) Neuro: Protective sensation is grossly intact B/L Derm: Right- multiple plantar wounds noted, no malodor, no probe to bone, no tunneling, minimal drainage noted, 100% granular base Left- multiple plantar wounds noted, with no drainage noted, no probe to probe, no tunneling, no malodor, 100% granular base, mild erythema noted to the dorsum of left foot with increased warmth. all the wounds are covered with a layer of dried serous secretions. MSK: No pain on palpation of the foot wound. Left ankle ulceration mildly tender - Neurological Exam Neurological Exam: Alert, Awake, Oriented x3 - Psychiatric Exam Psychiatric exam: Normal Affect, Normal Mood Assessment and Plan - Assessment and Plan (Free Text) Assessment: 62 y/o female patient seen with multiple bilateral feet wounds with cellulitis and possible left foot osteomyelitis Plan: Patient seen and evaluated with attending Dr. Raymond Plan discussed with Dr. Raymond Wound Culture: MRSA Wounds dressed with Bactroban, xeroform, gauze, ABD, and Kerlix Continue Abx as per ID. Patient to wear Multipodus boots as needed R foot MRI: No evidence of OM. L foot MRI: Chuck focal bone marrow edema at the calcaneous and cortical erosions suggestive of osteomyelitis. also new focal bone marrow edema of the 1st metatarsal bone compared to the last study suggestive of osteomyelitis. Patient to ambulates in the surgical shoe at all times. Podiatry will continue to follow up the patient while in house <Jose Raymond - Last Filed: 02/02/18 13:03> Objective - Vital Signs/Intake and Output Vital Signs (last 24 hours): Temp Pulse Resp BP Pulse Ox 98.6 F 110 H 20 156/70 H 99 02/02/18 06:00 02/02/18 10:41 02/02/18 06:00 02/02/18 10:41 02/02/18 06:00 - Medications Medications: Current Medications Aspirin (Ecotrin) 81 mg PO DAILY [facility] Last Admin: 02/02/18 10:40 Dose: 81 mg Heparin Sodium (Porcine) (Heparin) 5,000 units SC Q8 [facility]; Protocol Last Admin: 02/02/18 05:34 Dose: 5,000 units Vancomycin HCl (Vancomycin 750 Mg In Ns) 750 mg in 250 mls @ 167 mls/hr IVPB DAILY [facility]; Protocol Last Admin: 02/02/18 10:41 Dose: 167 mls/hr Insulin Human Regular (Humulin R Med) 0 units SC ACHS [facility]; Protocol Last Admin: 02/02/18 12:18 Dose: Not Given Levetiracetam (Keppra) 500 mg PO BID [facility] Last Admin: 02/02/18 10:40 Dose: 500 mg Lorazepam (Ativan) 1 mg IVP Q4H PRN; Protocol PRN Reason: Seizure activity Metoprolol Succinate (Toprol Xl) 50 mg PO DAILY [facility] Last Admin: 02/02/18 10:41 Dose: 50 mg Mupirocin (Bactroban Ointment) 0 gm TOP BID [facility] Last Admin: 02/02/18 10:40 Dose: 1 applic Ondansetron HCl (Zofran Inj) 4 mg IVP Q4H PRN PRN Reason: Nausea/Vomiting Last Admin: 01/29/18 16:15 Dose: 4 mg Pantoprazole Sodium (Protonix Ec Tab) 40 mg PO 0600 [facility] Last Admin: 02/02/18 05:35 Dose: 40 mg Sodium Bicarbonate (Sodium Bicarbonate Tab) 1,300 mg PO TID [facility] Last Admin: 02/02/18 10:40 Dose: 1,300 mg Vitamin B Complex/Vit C/Folic Acid (Nephro-Jenny) 1 tab PO 0800 [facility] Last Admin: 01/29/18 10:38 Dose: Not Given - Labs Labs: 02/02/18 06:00 02/02/18 06:00 PT 13.1 SECONDS (9.4-12.5) H 01/26/18 19:44 INR 1.15 01/26/18 19:44 APTT 27.8 Seconds (25.1-36.5) 01/26/18 19:44 Attending/Attestation - Attestation I have personally seen and examined this patient.: Yes I have fully participated in the care of the patient.: Yes I have reviewed all pertinent clinical information, including history, physical exam and plan: Yes
--- NOTE | 2018-02-02 13:40 | CP.PCM.PN ---
Subjective - Date & Time of Evaluation Date of Evaluation: 02/02/18 Time of Evaluation: 11:30 - Subjective Subjective: Infectious Disease Follow Up: February 02, 2018 62 yo female with PMH of DM2 (last A1c 7.3), HTN, CKD IV, OA, and osteomyelitis presented to ED with slurred speech concerning for CVA. Patient was seen and manjit luated at bedside by Podiatry. Patient denies fever/chills, CP, SOB, nausea or vomiting and states she feels much better since ED arrival. Patient states she regularly sees Dr. Raymond and Twila for wound care in the wound care center. MRSA seen in foot wounds. Fever high of 103.5 F during this hospitalization. Patient stating that she feels better today. Afebrile the past 24 hours. Blood cultures negative at 24 hours. New issue this morning of swelling and erythema of the bilateral hands and arms. Serotonin syndrome? Zyvox stopped and Vancomycin restarted Noted urine culture with <10,000 E. coli. Objective - Vital Signs/Intake and Output Vital Signs (last 24 hours): Temp Pulse Resp BP Pulse Ox 98.6 F 110 H 20 156/70 H 99 02/02/18 06:00 02/02/18 10:41 02/02/18 06:00 02/02/18 10:41 02/02/18 06:00 - Medications Medications: Current Medications Aspirin (Ecotrin) 81 mg PO DAILY [facility] Last Admin: 02/02/18 10:40 Dose: 81 mg Heparin Sodium (Porcine) (Heparin) 5,000 units SC Q8 [facility]; Protocol Last Admin: 02/02/18 05:34 Dose: 5,000 units Vancomycin HCl (Vancomycin 750 Mg In Ns) 750 mg in 250 mls @ 167 mls/hr IVPB DAILY [facility]; Protocol Last Admin: 02/02/18 10:41 Dose: 167 mls/hr Insulin Human Regular (Humulin R Med) 0 units SC ACHS [facility]; Protocol Last Admin: 02/02/18 12:18 Dose: Not Given Levetiracetam (Keppra) 500 mg PO BID [facility] Last Admin: 02/02/18 10:40 Dose: 500 mg Lorazepam (Ativan) 1 mg IVP Q4H PRN; Protocol PRN Reason: Seizure activity Metoprolol Succinate (Toprol Xl) 50 mg PO DAILY [facility] Last Admin: 02/02/18 10:41 Dose: 50 mg Mupirocin (Bactroban Ointment) 0 gm TOP BID [facility] Last Admin: 02/02/18 10:40 Dose: 1 applic Ondansetron HCl (Zofran Inj) 4 mg IVP Q4H PRN PRN Reason: Nausea/Vomiting Last Admin: 01/29/18 16:15 Dose: 4 mg Pantoprazole Sodium (Protonix Ec Tab) 40 mg PO 0600 [facility] Last Admin: 02/02/18 05:35 Dose: 40 mg Sodium Bicarbonate (Sodium Bicarbonate Tab) 1,300 mg PO TID [facility] Last Admin: 02/02/18 10:40 Dose: 1,300 mg Vitamin B Complex/Vit C/Folic Acid (Nephro-Jenny) 1 tab PO 0800 [facility] Last Admin: 01/29/18 10:38 Dose: Not Given - Labs Labs: 02/02/18 06:00 02/02/18 06:00 PT 13.1 SECONDS (9.4-12.5) H 01/26/18 19:44 INR 1.15 01/26/18 19:44 APTT 27.8 Seconds (25.1-36.5) 01/26/18 19:44 - Constitutional Appears: Non-toxic, No Acute Distress, Cachectic, Chronically Ill - Head Exam Head Exam: ATRAUMATIC, NORMOCEPHALIC - Eye Exam Eye Exam: EOMI, PERRL Pupil Exam: NORMAL ACCOMODATION, PERRL - ENT Exam ENT Exam: Mucous Membranes Moist, Normal External Ear Exam, TM's Normal Bilaterally - Neck Exam Neck Exam: Full ROM, Normal Inspection - Respiratory Exam Respiratory Exam: Clear to Ausculation Bilateral, NORMAL BREATHING PATTERN. absent: Rales, Rhonchi, Wheezes - Cardiovascular Exam Cardiovascular Exam: REGULAR RHYTHM, RRR, +S1, +S2 - GI/Abdominal Exam GI & Abdominal Exam: Soft, Normal Bowel Sounds. absent: Distended, Tenderness - Extremities Exam Additional comments: Vasc: DP/PT pulses palpable 2/4 B/L. Temperature gradient warm to warm from proximal to distal. Cap refill time: < 3 sec to all digits, mild non-pitting edema noted on bilateral LE (R>L) Derm: Right- multiple plantar wounds noted, grade 2, no malodor, no probe to bone, no tunneling, minimal drainage noted, 100% granular base Left- multiple plantar wounds noted, with minimal serous drainage noted, no probe to probe, no tunneling, no malodor, 100% granular base Neuro: Protective sensation is grossly intact B/L Ortho: Mild tenderness to palpation of right foot wound. Left ankle ulceration mildly tender Cultures: MRSA in wound culture. Mild swelling of the bilateral lower arms. Trace erythema. - Neurological Exam Neurological Exam: Alert, Awake, CN II-XII Intact, Oriented x3 - Psychiatric Exam Psychiatric exam: Normal Affect, Normal Mood - Skin Skin Exam: Intact, Normal Color Additional comments: except as listed above. Assessment and Plan - Assessment and Plan (Free Text) Assessment: 2 yo female with DM2 (last A1c 7.3), HTN, CKD IV, OA, and osteomyelitis presenting with slurred speech. Found to have MRSA in wound cultures taken by podiatry. Dr. Raymond debrided left foot wounds. Question of osteomyelitis. Bactoban used on wounds. Supportive care. On Zyvox given the patient's renal issues. Noted fever of 103.5 F during this hospitalization. Afebrile the past 24 hours. Stating that she feels better. Blood cultures negative at 48 hours. The patient this morning developed swell ing and erythema of the arms starting from the hands bilaterally. Can not rule out Serotonin Syndrome. Zyvox stopped and Vancomycin restarted. Patient remains afebrile with tachycardia. Noted Urine culture with E. coli of <10,000 CFU/ml. Normally not considered a UTI. Thank you for allowing me to participate in the care of the patient, we will follow with you.
--- NOTE | 2018-02-02 14:04 | CP.PCM.PN ---
<Adilson Burdick - Last Filed: 02/02/18 14:14> Subjective - Date & Time of Evaluation Date of Evaluation: 02/02/18 Time of Evaluation: 11:00 - Subjective Subjective: INTERNAL MEDICINE PROGRESS NOTE FOR DR. ANDREW Burdick PGY1 Pt seen and examined at bedside this am. No acute nursing events overnight. Pt report 1 episode of watery diarrhea. Objective - Vital Signs/Intake and Output Vital Signs (last 24 hours): Temp Pulse Resp BP Pulse Ox 98.6 F 110 H 20 156/70 H 99 02/02/18 06:00 02/02/18 10:41 02/02/18 06:00 02/02/18 10:41 02/02/18 06:00 - Medications Medications: Current Medications Aspirin (Ecotrin) 81 mg PO DAILY [facility] Last Admin: 02/02/18 10:40 Dose: 81 mg Heparin Sodium (Porcine) (Heparin) 5,000 units SC Q8 [facility]; Protocol Last Admin: 02/02/18 05:34 Dose: 5,000 units Vancomycin HCl (Vancomycin 750 Mg In Ns) 750 mg in 250 mls @ 167 mls/hr IVPB D AILY [facility]; Protocol Last Admin: 02/02/18 10:41 Dose: 167 mls/hr Insulin Human Regular (Humulin R Med) 0 units SC ACHS [facility]; Protocol Last Admin: 02/02/18 12:18 Dose: Not Given Levetiracetam (Keppra) 500 mg PO BID [facility] Last Admin: 02/02/18 10:40 Dose: 500 mg Lorazepam (Ativan) 1 mg IVP Q4H PRN; Protocol PRN Reason: Seizure activity Metoprolol Succinate (Toprol Xl) 50 mg PO DAILY [facility] Last Admin: 02/02/18 10:41 Dose: 50 mg Mupirocin (Bactroban Ointment) 0 gm TOP BID [facility] Last Admin: 02/02/18 10:40 Dose: 1 applic Ondansetron HCl (Zofran Inj) 4 mg IVP Q4H PRN PRN Reason: Nausea/Vomiting Last Admin: 01/29/18 16:15 Dose: 4 mg Pantoprazole Sodium (Protonix Ec Tab) 40 mg PO 0600 [facility] Last Admin: 02/02/18 05:35 Dose: 40 mg Sodium Bicarbonate (Sodium Bicarbonate Tab) 1,300 mg PO TID [facility] Last Admin: 02/02/18 10:40 Dose: 1,300 mg Vitamin B Complex/Vit C/Folic Acid (Nephro-Jenny) 1 tab PO 0800 [facility] Last Admin: 01/29/18 10:38 Dose: Not Given - Labs Labs: 02/02/18 06:00 02/02/18 06:00 PT 13.1 SECONDS (9.4-12.5) H 01/26/18 19:44 INR 1.15 01/26/18 19:44 APTT 27.8 Seconds (25.1-36.5) 01/26/18 19:44 - Constitutional Appears: Well, Non-toxic, No Acute Distress - Head Exam Head Exam: NORMAL INSPECTION, NORMOCEPHALIC - Eye Exam Eye Exam: EOMI, Normal appearance - ENT Exam ENT Exam: Mucous Membranes Moist, Normal Exam - Neck Exam Neck Exam: Normal Inspection - Respiratory Exam Respiratory Exam: Clear to Ausculation Bilateral, NORMAL BREATHING PATTERN - Cardiovascular Exam Cardiovascular Exam: REGULAR RHYTHM, +S1, +S2 - GI/Abdominal Exam GI & Abdominal Exam: Normal Bowel Sounds - Extremities Exam Extremities Exam: Normal Capillary Refill, Normal Inspection - Back Exam Back Exam: NORMAL INSPECTION - Neurological Exam Neurological Exam: Alert, Awake, Oriented x3 - Psychiatric Exam Psychiatric exam: Normal Affect, Normal Mood - Skin Skin Exam: Dry, Erythema (b/l hands), Intact, Warm Assessment and Plan - Assessment and Plan (Free Text) Assessment: 62-year-old female with past medical history significant for type 2 diabetes, hypertension, chronic kidney disease stage IV, osteoarthritis, and osteomyelitis presented to the emergency room with slurred speech and possible seizure. Plan: Sepsis likely 2/2 osteomyelitis L foot wound culture growing MRSA Leukocytosis resolved Zyvox may be causing allergic reaction, likely secondary to serotonin syndrome Switched to vancomycin L foot MRI shows signs of osteomyelitis. 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 normal Continue Keppra 500BID per recs Neurosurgery consulted d/t MRI changes. Recommend repeating MRI in one month. Repeat MRI with contrast once renal function stabilizes Patient has no hx of prior episodes, no hx of seizures Dysarthria has resolved now CT head without evidence of acute intracranial hemorrhage Neuro check q4h Aspiration and seizure pxns Ativan q4h PRN for any additional seizure activity PT evaluate and treat FREDY and CKD stage IV Diabetic/hypertensive nephropathy Cr decreased today. Discontinue fluids d/t hypertension No ACEI/ARB due to FREDY continue bicarb. improving Transfuse pRBC prn Nephro does not recommend JOANNA w/MRI d/t Fredy Diarrhea Had 1 episode of waterry diarrhea yesterday May be c.diff. Test stool for C. Dfiff Transaminitis Patient has hx of bile duct dilatation secondary to cholecystectomy Elevated liver enzymes likely secondary to steatohepatitis. Hepatitis serology is negative GI consulted. Appreciate recs Abdomen ultrasound is unremarkable Anemia of chronic disease Likely secondary to underlying renal dysfunction H/H stable Consider outpatient colonoscopy if anemia is worsening or does not improve Hx DM2 Hold metformin & januvia while inpatient ISS medium coverage Point of care fingerstick glucose ACHS PPX: DVT:SC heparin GI: protonix po Case seen, examined and discussed with attending physician, Dr. Herrera <Erendira Herrera R - Last Filed: 02/02/18 15:10> Objective - Vital Signs/Intake and Output Vital Signs (last 24 hours): Temp Pulse Resp BP Pulse Ox 98.3 F 109 H 20 162/74 H 99 02/02/18 14:00 02/02/18 14:00 02/02/18 14:00 02/02/18 14:00 02/02/18 14:00 - Medications Medications: Current Medications Aspirin (Ecotrin) 81 mg PO DAILY [facility] Last Admin: 02/02/18 10:40 Dose: 81 mg Heparin Sodium (Porcine) (Heparin) 5,000 units SC Q8 [facility]; Protocol Last Admin: 02/02/18 14:58 Dose: Not Given Vancomycin HCl (Vancomycin 750 Mg In Ns) 750 mg in 250 mls @ 167 mls/hr IVPB DAILY [facility]; Protocol Last Admin: 02/02/18 10:41 Dose: 167 mls/hr Insulin Human Regular (Humulin R Med) 0 units SC ACHS [facility]; Protocol Last Admin: 02/02/18 12:18 Dose: Not Given Levetiracetam (Keppra) 500 mg PO BID [facility] Last Admin: 02/02/18 10:40 Dose: 500 mg Lorazepam (Ativan) 1 mg IVP Q4H PRN; Protocol PRN Reason: Seizure activity Metoprolol Succinate (Toprol Xl) 50 mg PO DAILY [facility] Last Admin: 02/02/18 10:41 Dose: 50 mg Mupirocin (Bactroban Ointment) 0 gm TOP BID [facility] Last Admin: 02/02/18 10:40 Dose: 1 applic Ondansetron HCl (Zofran Inj) 4 mg IVP Q4H PRN PRN Reason: Nausea/Vomiting Last Admin: 01/29/18 16:15 Dose: 4 mg Pantoprazole Sodium (Protonix Ec Tab) 40 mg PO 0600 [facility] Last Admin: 02/02/18 05:35 Dose: 40 mg Sodium Bicarbonate (Sodium Bicarbonate Tab) 1,300 mg PO TID [facility] Last Admin: 02/02/18 14:49 Dose: 1,300 mg Vitamin B Complex/Vit C/Folic Acid (Nephro-Jenny) 1 tab PO 0800 [facility] Last Admin: 01/29/18 10:38 Dose: Not Given - Labs Labs: 02/02/18 06:00 02/02/18 06:00 PT 13.1 SECONDS (9.4-12.5) H 01/26/18 19:44 INR 1.15 01/26/18 19:44 APTT 27.8 Seconds (25.1-36.5) 01/26/18 19:44 Attending/Attestation - Attestation I have personally seen and examined this patient.: Yes I have fully participated in the care of the patient.: Yes I have reviewed all pertinent clinical information, including history, physical exam and plan: Yes Notes (Text): Patient seen and examined by me with resident at 9:30AM on 02/02/18. Case i ncluding HPI, physical exam, and assessment and plan discussed with resident. Agree with above with following additions/corrections. Patient is 62-year-old female with past medical history significant for type 2 diabetes, hypertension, chronic kidney disease stage IV, osteoarthritis, and osteomyelitis presented to the emergency room with slurred speech and possible seizure. Patient states that she is feeling a little better today. Pain and erythema in her hands have improved. Still with pain in her legs. Patient states she had diarrhea twice yesterday. Patient states stool was "liquid." Patient denies chest pain or shortness of breath. No headaches or dizziness. No fevers or chills. No nausea, vomiting, or abdominal pain. No dysuria. Patient states she does have increased urinary frequency. Physical exam: General: Awake and alert lying in bed in no acute distress. Cachectic appearing HEENT: Normocephalic, atraumatic. Extraocular muscles intact, pupils equal and reactive, no scleral icterus. Oropharynx is pink and moist. Neck is supple. Cardiovascular: Normal rhythm. Normal S1 and S2. No murmurs, rubs, or gallops appreciated Pulmonary: Normal respiratory effort. No rhonchi, rales, or wheezing appreciated. Gastrointestinal: Soft, nondistended. Nontender. Positive bowel sounds all 4 quadrants. No guarding. Musculoskeletal: Moves all extremities. No calf tenderness. No edema a ppreciated. Bilateral feet dressing clean, dry, and intact. Improved. bilateral upper extremity tenderness. Improved erythema and tenderness in bilateral hands. Central nervous system: AAOx3 Dermatologic: Skin warm and dry. Assessment and plan: Patient is 62-year-old female with past medical history significant for type 2 diabetes, hypertension, chronic kidney disease stage IV, osteoarthritis, and osteomyelitis presented to the emergency room with slurred speech and possible seizure. 1. Sepsis likely secondary to cellulitis and likely osteomyelitis. Wound culture positive for MRSA. Procalcitonin 146.85. No leukocytosis or leukopenia. Remains afebrile. Blood cultures negative. Urine cultures positive for E. Coli. Possible reaction from Zyvox. Zyvox stopped by ID. Continue with Vancomycin, day #2. Chest x-ray per radiologist showed no active disease. 2. Bilateral feet wounds and cellulitis. MRI right foot per radiologist showed no evidence of osteomyelitis. 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 Podiatry following, recommendations appreciated. Wound culture positive for MRSA. Continue vancomycin. Continue Multi-Podus boots as needed. Continue local wound care. Lower extremity CASSIDY exam per radiologist showed relatively normal CASSIDY and PVR examination at rest. Left foot x-ray per radiologist showed question small soft tissue ulcer along the plantar aspect of the foot near distal metatarsal level. Right foot x-ray per radiologist showed is overall stable as compared to right foot radiographs performed 06/26/2017. 3. Escherichia coli UTI. Patient with increased urinary frequency. Started on Azactam per ID. 4. Dysarthria. Secondary to complex partial seizure. Resolved. Continue Keppra 500 mg by mouth twice a day. Patient will require repeat MRI in one month. Continue Ativan as needed for seizure activity. Per neurology EEG was within normal limits. Brain MRI per radiologist showed 1.7 cm ill-defined area of diminished T1, increased long TR and increased diffusion-weighted signal at the posterior right temporal lobe felt to likely reflect potential soft tissue mass, infarction is not favored; left frontal lesion likely reflects a benign meningioma 1.8 cm, additionally likely meningioma right posterior fossa 2.[address] per radiologist showed chronic left basal ganglia hypodensity consistent with lacunar infarct; left frontal and right posterior fossa masses reidentified and remain consistent with meningiomas. Head MRA per radiologist showed unremarkable MR angiography of the brain. Neurology recommendations appreciated. Neurosurgery recommendations appreciated. 5. FREDY. Creatinine downtrending. Continue with IV fluids. Nephrology following, recommendations appreciated. Continue Nephro-Jenny and sodium bicarbonate. 6. Transaminitis. Stable. Abdominal ultrasound per radiology showed unremarkable abdominal sonogram. GI recommendations appreciated. Per GI, patient has chronically dilated common bile duct secondary to cholecystectomy, elevated liver enzymes secondary to steatohepatitis. No further GI workup planned. Hep panel negative. Continue to monitor LFTs. 7. Anemia of chronic disease. H&H stable. Stool for occult blood negative. Patient status post 1 unit packed red blood cells on 01/27/2018. Continue to monitor CBC 8 . Essential hypertension. Continue metoprolol. 9. Type 2 diabetes. Continue insulin sliding scale. Continue to monitor Accu- Cheks. 10. Diarrhea. Stool culture negative. Stool for occult blood negative. 2 episodes of diarrhea yesterday per patient. Will check stool for C. difficile. Continue to monitor. 10. GI/DVT prophylaxis. Protonix/heparin. Case was discussed in detail with the patient regarding current diagnosis and treatment plan. All questions answered.
[2018-02-02] MEDS ORDERED: Metoprolol 1 mg/ml Inj IVP ONE (21:23)
--- NOTE | 2018-02-03 01:10 | CP.PCM.PN ---
Subjective - Date & Time of Evaluation Date of Evaluation: 02/03/18 Time of Evaluation: 01:10 - Subjective Subjective: # 24 angiocath was inserted in right hand. Objective - Vital Signs/Intake and Output Vital Signs (last 24 hours): Temp Pulse Resp BP Pulse Ox 98.6 F 130 H 20 127/58 L 99 02/02/18 22:43 02/03/18 00:01 02/02/18 22:43 02/03/18 00:01 02/02/18 22:43 Intake and Output: 02/02/18 02/03/18 18:59 06:59 Intake Total 600 240 Balance 600 240 - Medications Medications: Current Medications Aspirin (Ecotrin) 81 mg PO DAILY [facility] Last Admin: 02/02/18 10:40 Dose: 81 mg Heparin Sodium (Porcine) (Heparin) 5,000 units SC Q8 [facility]; Protocol Last Admin: 02/02/18 22:16 Dose: 5,000 units Vancomycin HCl (Vancomycin 750 Mg In Ns) 750 mg in 250 mls @ 167 mls/hr IVPB DAILY [facility]; Protocol Last Admin: 02/02/18 10:41 Dose: 167 mls/hr Insulin Human Regular (Humulin R Med) 0 units SC ACHS [facility]; Protocol Last Admin: 02/02/18 21:47 Dose: Not Given Levetiracetam (Keppra) 500 mg PO BID [facility] Last Admin: 02/02/18 17:43 Dose: 500 mg Lorazepam (Ativan) 1 mg IVP Q4H PRN; Protocol PRN Reason: Seizure activity Last Admin: 02/02/18 22:40 Dose: 1 mg Metoprolol Succinate (Toprol Xl) 50 mg PO DAILY [facility] Last Admin: 02/02/18 10:41 Dose: 50 mg Mupirocin (Bactroban Ointment) 0 gm TOP BID [facility] Last Admin: 02/02/18 17:43 Dose: 1 applic Ondansetron HCl (Zofran Inj) 4 mg IVP Q4H PRN PRN Reason: Nausea/Vomiting Last Admin: 01/29/18 16:15 Dose: 4 mg Pantoprazole Sodium (Protonix Ec Tab) 40 mg PO 0600 [facility] Last Admin: 02/02/18 05:35 Dose: 40 mg Sodium Bicarbonate (Sodium Bicarbonate Tab) 1,300 mg PO TID [facility] Last Admin: 02/02/18 17:44 Dose: 1,300 mg Vitamin B Complex/Vit C/Folic Acid (Nephro-Jenny) 1 tab PO 0800 [facility] Last Admin: 01/29/18 10:38 Dose: Not Given - Labs Labs: 02/02/18 06:00 02/02/18 06:00 PT 13.1 SECONDS (9.4-12.5) H 01/26/18 19:44 INR 1.15 01/26/18 19:44 APTT 27.8 Seconds (25.1-36.5) 01/26/18 19:44
[2018-02-03] MEDS: Pantoprazole 40 mg EC Tab PO SCH (05:59)
[2018-02-03] MEDS: Multivitamin Vitamin B Complex (Nephro-Vite) Tab PO SCH (09:47)
[2018-02-03] MEDS: Vancomycin 750mg 750 MG/250 ML BAG IVPB SCH (09:48)
[2018-02-03] MEDS: Metoprolol Succinate 50 mg XL Tab PO SCH (09:48)
[2018-02-03] MEDS: Insulin Reg-MEDIUM-Coverage SC SCH ×4 (09:51→23:08)
[2018-02-03] MEDS: Mupirocin 2% Ointment 15 GM TUBE TOP SCH ×2 (09:58→17:49)
--- NOTE | 2018-02-03 12:23 | CP.PCM.PN ---
<Adilson Burdick - Last Filed: 02/03/18 12:20> Subjective - Date & Time of Evaluation Date of Evaluation: 02/03/18 Time of Evaluation: 12:20 - Subjective Subjective: INTERNAL MEDICINE PROGRESS NOTE FOR DR. GALLITO Burdick PGY1 Pt seen and examined at bedside this am. No acute nursing events overnight. Pt report no complaints this morning. She is tolerating her diet. 12 point ROS is negative. Objective - Vital Signs/Intake and Output Vital Signs (last 24 hours): Temp Pulse Resp BP Pulse Ox 98.6 F 120 H 16 130/65 98 02/03/18 06:00 02/03/18 09:48 02/03/18 06:00 02/03/18 09:48 02/03/18 06:00 Intake and Output: 02/03/18 02/03/18 06:59 18:59 Intake Total 240 Balance 240 - Medications Medications: Current Medications Aspirin (Ecotrin) 81 mg PO DAILY [facility] Last Admin: 02/03/18 09:48 Dose: 81 mg Heparin Sodium (Porcine) (Heparin) 5,000 units SC Q8 [facility]; Protocol Last Admin: 02/03/18 05:58 Dose: 5,000 units Vancomycin HCl (Vancomycin 750 Mg In Ns) 750 mg in 250 mls @ 167 mls/hr IVPB DAILY [facility]; Protocol Last Admin: 02/03/18 09:48 Dose: 167 mls/hr Insulin Human Regular (Humulin R Med) 0 units SC ACHS [facility]; Protocol Last Admin: 02/03/18 11:42 Dose: Not Given Levetiracetam (Keppra) 500 mg PO BID [facility] Last Admin: 02/03/18 09:47 Dose: 500 mg Lorazepam (Ativan) 1 mg IVP Q4H PRN; Protocol PRN Reason: Seizure activity Last Admin: 02/03/18 05:56 Dose: 1 mg Metoprolol Succinate (Toprol Xl) 50 mg PO DAILY [facility] Last Admin: 02/03/18 09:48 Dose: 50 mg Mupirocin (Bactroban Ointment) 0 gm TOP BID [facility] Last Admin: 02/03/18 09:58 Dose: 1 applic Ondansetron HCl (Zofran Inj) 4 mg IVP Q4H PRN PRN Reason: Nausea/Vomiting Last Admin: 01/29/18 16:15 Dose: 4 mg Pantoprazole Sodium (Protonix Ec Tab) 40 mg PO 0600 [facility] Last Admin: 02/03/18 05:59 Dose: 40 mg Sodium Bicarbonate (Sodium Bicarbonate Tab) 1,300 mg PO TID [facility] Last Admin: 02/03/18 09:47 Dose: 1,300 mg Vitamin B Complex/Vit C/Folic Acid (Nephro-Jenny) 1 tab PO 0800 [facility] Last Admin: 02/03/18 09:47 Dose: 1 tab - Labs Labs: 02/02/18 06:00 02/02/18 06:00 PT 13.1 SECONDS (9.4-12.5) H 01/26/18 19:44 INR 1.15 01/26/18 19:44 APTT 27.8 Seconds (25.1-36.5) 01/26/18 19:44 - Constitutional Appears: Well, Non-toxic, No Acute Distress - Head Exam Head Exam: NORMAL INSPECTION, NORMOCEPHALIC - Eye Exam Eye Exam: EOMI, Normal appearance - ENT Exam ENT Exam: Mucous Membranes Moist, Normal Exam - Neck Exam Neck Exam: Normal Inspection - Respiratory Exam Respiratory Exam: Clear to Ausculation Bilateral, NORMAL BREATHING PATTERN - Cardiovascular Exam Cardiovascular Exam: Tachycardia, +S1, +S2 - GI/Abdominal Exam GI & Abdominal Exam: Soft. absent: Tenderness - Extremities Exam Extremities Exam: Normal Inspection. absent: Calf Tenderness Additional comments: b/l foot dressings in place - Back Exam Back Exam: NORMAL INSPECTION - Neurological Exam Neurological Exam: Alert, Awake, Oriented x3 - Psychiatric Exam Psychiatric exam: Normal Affect, Normal Mood - Skin Skin Exam: Dry, Intact, Warm Assessment and Plan - Assessment and Plan (Free Text) Assessment: 62-year-old female with past medical history significant for type 2 diabetes, hypertension, chronic kidney disease stage IV, osteoarthritis, and osteomyelitis presented to the emergency room with slurred speech and possible seizure, sub sequently found to have MRSA growing from L foot ulcer Plan: Sepsis likely 2/2 osteomyelitis L foot wound culture growing MRSA Leukocytosis resolved Zyvox may be causing allergic reaction, likely secondary to serotonin syndrome Switched antibiotics to vancomycin based on ID recs Underwent angiocath placement last night. Requires IV abx/fluid May require PICC f/u b/l foot MRI Bactroban for the wounds Follow-up podiatry recs Tachycardia Hx of tachycardia previously Continue IV hydration Dysarthria 2/2 Complex partial seizure 24 hr EEG read by neuro. normal Continue Keppra 500BID per recs Neurosurgery consulted d/t MRI changes. Recommend repeating MRI in one month. Repeat MRI with contrast once renal function stabilizes Patient has no hx of prior episodes, no hx of seizures Dysarthria has resolved now CT head without evidence of acute intracranial hemorrhage Neuro check q4h Aspiration and seizure pxns Ativan q4h PRN for any additional seizure activity PT evaluate and treat FREDY and CKD stage IV Diabetic/hypertensive nephropathy Likely prerenal FREDY d/t hypotension Cr increased today. Related to hypotension/prerenal/infection Continue IV fluids No ACEI/ARB due to FREDY/hypotension continue bicarb. improving Transfuse pRBC prn Nephro does not recommend JOANNA w/MRI d/t Fredy MRI without contrast ordered per podiatry recs Transaminitis Patient has hx of bile duct dilatation secondary to cholecystectomy Elevated liver enzymes likely secondary to steatohepatitis. Hepatitis serology is negative GI consulted. Appreciate recs Abdomen ultrasound is unremarkable Anemia of chronic disease Likely secondary to underlying renal dysfunction H/H stable Consider outpatient colonoscopy if anemia is worsening or does not improve Hx DM2 Hold metformin & januvia while inpatient ISS medium coverage Point of care fingerstick glucose ACHS PPX: DVT: SC heparin GI: Protonix po Case seen, examined and discussed with attending physician, Dr. Rodríguez <Jaun Rodríguez - Last Filed: 02/04/18 16:40> Objective - Vital Signs/Intake and Output Vital Signs (last 24 hours): Temp Pulse Resp BP Pulse Ox 98 F 109 H 18 139/63 100 02/04/18 14:00 02/04/18 14:00 02/04/18 14:00 02/04/18 14:00 02/04/18 14:00 Intake and Output: 02/04/18 02/04/18 06:59 18:59 Intake Total 120 Balance 120 - Medications Medications: Current Medications Aspirin (Ecotrin) 81 mg PO DAILY [facility] Last Admin: 02/04/18 10:52 Dose: 81 mg Darbepoetin Brown (Aranesp) 60 mcg SC QWK [facility] Last Admin: 02/04/18 13:08 Dose: 60 mcg Ferrous Gluconate (Fergon) 324 mg PO TID [facility] Last Admin: 02/04/18 13:08 Dose: 324 mg Heparin Sodium (Porcine) (Heparin) 5,000 units SC Q8 [facility]; Protocol Last Admin: 02/04/18 13:08 Dose: 5,000 units Vancomycin HCl (Vancomycin 750 Mg In Ns) 750 mg in 250 mls @ 167 mls/hr IVPB DAILY [facility]; Protocol Last Admin: 02/04/18 10:53 Dose: 167 mls/hr Sodium Chloride (Sodium Chloride 0.45%) 1,000 mls @ 100 mls/hr IV .Q10H [facility] Last Admin: 02/04/18 11:20 Dose: 100 mls/hr Insulin Human Regular (Humulin R Med) 0 units SC ACHS [facility]; Protocol Last Admin: 02/04/18 12:34 Dose: 1 unit Levetiracetam (Keppra) 500 mg PO BID [facility] Last Admin: 02/04/18 10:52 Dose: 500 mg Lorazepam (Ativan) 1 mg IVP Q4H PRN; Protocol PRN Reason: Seizure activity Last Admin: 02/03/18 22:01 Dose: 1 mg Metoprolol Succinate (Toprol Xl) 50 mg PO DAILY [facility] Last Admin: 02/04/18 10:53 Dose: 50 mg Mupirocin (Bactroban Ointment) 0 gm TOP BID [facility] Last Admin: 02/04/18 12:34 Dose: 1 applic Ondansetron HCl (Zofran Inj) 4 mg IVP Q4H PRN PRN Reason: Nausea/Vomiting Last Admin: 01/29/18 16:15 Dose: 4 mg Pantoprazole Sodium (Protonix Ec Tab) 40 mg PO 0600 [facility] Last Admin: 02/04/18 07:52 Dose: Not Given Sodium Bicarbonate (Sodium Bicarbonate Tab) 1,300 mg PO TID [facility] Last Admin: 02/04/18 13:09 Dose: 1,300 mg Vitamin B Complex/Vit C/Folic Acid (Nephro-Jenny) 1 tab PO 0800 [facility] Last Admin: 02/04/18 10:53 Dose: 1 tab - Labs Labs: 02/04/18 06:20 02/04/18 06:20 PT 13.1 SECONDS (9.4-12.5) H 01/26/18 19:44 INR 1.15 01/26/18 19:44 APTT 27.8 Seconds (25.1-36.5) 01/26/18 19:44 Attending/Attestation - Attestation I have personally seen and examined this patient.: Yes I have fully participated in the care of the patient.: Yes I have reviewed all pertinent clinical information, including history, physical exam and plan: Yes Notes (Text): 02/04/18 16:33 Attending note; Patient seen and examined with resident. Patient is alert and awake. tired. Not in any acute distress/denies any pain. Left lower extremity in dressing. Patient is 62-year-old female with past medical history significant for type 2 diabetes, hypertension, chronic kidney disease stage IV, osteoarthritis, and osteomyelitis presented to the emergency room with slurred speech and possible seizure. 1. Sepsis likely secondary to cellulitis and osteomyelitis. Wound culture positive for MRSA. Patient is currently afebrile. Clinically stable. Blood cultures negative. Urine cultures positive for E. Coli < 10,000 colonies. Possible reaction from Zyvox. Zyvox stopped by ID. Continue with Vancomycin. 2. Bilateral feet wounds and cellulitis. MRI right foot showed no evidence of osteomyelitis. 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 Continue dressing per podiatry. Continue Multi-Podus boots as needed. Continue local wound care. Lower extremity CASSIDY showed relatively normal CASSIDY and PVR examination at rest. 3. Dysarthria. Secondary to complex partial seizure. Resolved. Continue Keppra 500 mg by mouth twice a day. EEG was within normal limits. Brain MRI showed 1.7 cm ill-defined area of diminished T1, increased long TR and increased diffusion-weighted signal at the posterior right temporal lobe felt to likely reflect potential soft tissue mass, infarction is not favored; left frontal lesion likely reflects a benign meningioma 1.8 cm, additionally likely meningioma right posterior fossa 2.1 cm. 4. FREDY. Creatinine is improving. Continue with IV fluids. Nephrology following, recommendations appreciated. Continue Nephro-Jenny and sodium bicarbonate. 5. Transaminitis. Stable. Abdominal ultrasound showed unremarkable abdominal sonogram. GI recommendations appreciated. Per GI, patient has chronically dilated common bile duct secondary to cholecystectomy, elevated liver enzymes secondary to steatohepatitis. No further GI workup planned. Hep panel negative. Continue to monitor LFTs. 6. Anemia of chronic disease. H&H stable. Stool for occult blood negative. Patient status post 1 unit packed red blood cells on 01/27/2018. Continue to monitor CBC. 7 . Essential hypertension. Continue metoprolol. 8. Type 2 diabetes. Continue insulin sliding scale. Continue to monitor Accu- Cheks. GI/DVT prophylaxis. Protonix/heparin. Case discussed with ID in detail. Possible Dalvance for 2 doses. We will discuss with disease case manager rn tomorrow. Plan for subacute rehabilitation. Upon discharge the patient will follow up with PMD Dr. Galvez.
[2018-02-03] MEDS ORDERED: Sodium Chloride 0.9% 1,000 ML IV SCH (12:45)
--- NOTE | 2018-02-03 13:16 | CP.PCM.PN ---
<Saw Youngblood - Last Filed: 02/03/18 13:12> Subjective - Date & Time of Evaluation Date of Evaluation: 02/03/18 Time of Evaluation: 13:12 - Subjective Subjective: Podiatry progress note for Dr. Raymond; 62 y/o female patient seen and evaluated at bedside for bilateral lower extremity wounds with cellulitis and possible left foot osteomyelitis . Patient is resting comfortably in her bed, She states that she had an episode of diarrhea yesterday. Patient denies any pain in her feet at this time. Patient denies any overnight F/N/V/C or SOB. Patient denies any other pedal complaint at this time. Objective - Vital Signs/Intake and Output Vital Signs (last 24 hours): Temp Pulse Resp BP Pulse Ox 98.6 F 120 H 16 130/65 98 02/03/18 06:00 02/03/18 09:48 02/03/18 06:00 02/03/18 09:48 02/03/18 06:00 Intake and Output: 02/03/18 02/03/18 06:59 18:59 Intake Total 240 Balance 240 - Medications Medications: Current Medications Aspirin (Ecotrin) 81 mg PO DAILY [facility] Last Admin: 02/03/18 09:48 Dose: 81 mg Heparin Sodium (Porcine) (Heparin) 5,000 units SC Q8 [facility]; Protocol Last Admin: 02/03/18 05:58 Dose: 5,000 units Vancomycin HCl (Vancomycin 750 Mg In Ns) 750 mg in 250 mls @ 167 mls/hr IVPB DAILY [facility]; Protocol Last Admin: 02/03/18 09:48 Dose: 167 mls/hr Insulin Human Regular (Humulin R Med) 0 units SC ACHS [facility]; Protocol Last Admin: 02/03/18 11:42 Dose: Not Given Levetiracetam (Keppra) 500 mg PO BID [facility] Last Admin: 02/03/18 09:47 Dose: 500 mg Lorazepam (Ativan) 1 mg IVP Q4H PRN; Protocol PRN Reason: Seizure activity Last Admin: 02/03/18 05:56 Dose: 1 mg Metoprolol Succinate (Toprol Xl) 50 mg PO DAILY [facility] Last Admin: 02/03/18 09:48 Dose: 50 mg Mupirocin (Bactroban Ointment) 0 gm TOP BID [facility] Last Admin: 02/03/18 09:58 Dose: 1 applic Ondansetron HCl (Zofran Inj) 4 mg IVP Q4H PRN PRN Reason: Nausea/Vomiting Last Admin: 01/29/18 16:15 Dose: 4 mg Pantoprazole Sodium (Protonix Ec Tab) 40 mg PO 0600 [facility] Last Admin: 02/03/18 05:59 Dose: 40 mg Sodium Bicarbonate (Sodium Bicarbonate Tab) 1,300 mg PO TID [facility] Last Admin: 02/03/18 09:47 Dose: 1,300 mg Vitamin B Complex/Vit C/Folic Acid (Nephro-Jenny) 1 tab PO 0800 [facility] Last Admin: 02/03/18 09:47 Dose: 1 tab - Labs Labs: 02/02/18 06:00 02/02/18 06:00 PT 13.1 SECONDS (9.4-12.5) H 01/26/18 19:44 INR 1.15 01/26/18 19:44 APTT 27.8 Seconds (25.1-36.5) 01/26/18 19:44 - Constitutional Appears: No Acute Distress - Head Exam Head Exam: ATRAUMATIC, NORMOCEPHALIC - Extremities Exam Additional comments: Lower extremity focused examination: Vasc: DP/PT pulses palpable 2/4 B/L. Temperature gradient warm to warm from proximal to distal. Cap refill time: < 3 sec to all digits, mild non-pitting edema noted on bilateral LE (R>L) Neuro: Protective sensation is grossly intact B/L Derm: Right- multiple plantar wounds noted, no malodor, no probe to bone, no tunneling, No drainage noted, No Malodor. Wounds covered with dry scab. Noted superficial scratch in the back of the right leg. Left- multiple plantar wounds noted, with no drainage noted, no probe to probe, no tunneling, no malodor. Wounds covered with dry scab. MSK: No pain on palpation of the foot wound. Left ankle ulceration mildly tender - Neurological Exam Neurological Exam: Alert, Awake, Oriented x3 - Psychiatric Exam Psychiatric exam: Normal Affect, Normal Mood Assessment and Plan - Assessment and Plan (Free Text) Assessment: 62 y/o female patient seen with multiple bilateral feet wounds with cellulitis and possible left foot osteomyelitis Plan: Patient seen and evaluated at the bedside. Plan discussed with Dr. Raymond Wound Culture: MRSA Wounds dressed with Bactroban, xeroform, gauze, ABD, and Kerlix Optifoam left intact over the scratch area at the right leg. Continue Abx as per ID. Patient to wear Multipodus boots as needed R foot MRI: No evidence of OM. L foot MRI: Chuck focal bone marrow edema at the calcaneous and cortical erosions suggestive of osteomyelitis. also new focal bone marrow edema of the 1st metatarsal bone compared to the last study suggestive of osteomyelitis. Patient to ambulates in the surgical shoe at all times. Podiatry will continue to follow up the patient while in house <Jose Raymond - Last Filed: 02/04/18 10:17> Objective - Vital Signs/Intake and Output Vital Signs (last 24 hours): Temp Pulse Resp BP Pulse Ox 98 F 106 H 18 136/56 L 99 02/04/18 06:00 02/04/18 06:00 02/04/18 06:00 02/04/18 06:00 02/04/18 06:00 Intake and Output: 02/04/18 02/04/18 06:59 18:59 Intake Total 120 Balance 120 - Medications Medications: Current Medications Aspirin (Ecotrin) 81 mg PO DAILY [facility] Last Admin: 02/03/18 09:48 Dose: 81 mg Heparin Sodium (Porcine) (Heparin) 5,000 units SC Q8 [facility]; Protocol Last Admin: 02/04/18 05:36 Dose: 5,000 units Vancomycin HCl (Vancomycin 750 Mg In Ns) 750 mg in 250 mls @ 167 mls/hr IVPB DAILY [facility]; Protocol Last Admin: 02/03/18 09:48 Dose: 167 mls/hr Sodium Chloride (Sodium Chloride 0.9%) 1,000 mls @ 100 mls/hr IV .Q10H [facility] Last Admin: 02/04/18 05:37 Dose: 100 mls/hr Insulin Human Regular (Humulin R Med) 0 units SC ACHS [facility]; Protocol Last Admin: 02/03/18 23:08 Dose: Not Given Levetiracetam (Keppra) 500 mg PO BID [facility] Last Admin: 02/03/18 17:48 Dose: 500 mg Lorazepam (Ativan) 1 mg IVP Q4H PRN; Protocol PRN Reason: Seizure activity Last Admin: 02/03/18 22:01 Dose: 1 mg Metoprolol Succinate (Toprol Xl) 50 mg PO DAILY [facility] Last Admin: 02/03/18 09:48 Dose: 50 mg Mupirocin (Bactroban Ointment) 0 gm TOP BID [facility] Last Admin: 02/03/18 17:49 Dose: 1 applic Ondansetron HCl (Zofran Inj) 4 mg IVP Q4H PRN PRN Reason: Nausea/Vomiting Last Admin: 01/29/18 16:15 Dose: 4 mg Pantoprazole Sodium (Protonix Ec Tab) 40 mg PO 0600 [facility] Last Admin: 02/04/18 07:52 Dose: Not Given Sodium Bicarbonate (Sodium Bicarbonate Tab) 1,300 mg PO TID [facility] Last Admin: 02/03/18 17:48 Dose: 1,300 mg Vitamin B Complex/Vit C/Folic Acid (Nephro-Jenny) 1 tab PO 0800 [facility] Last Admin: 02/03/18 09:47 Dose: 1 tab - Labs Labs: 02/04/18 06:20 02/04/18 06:20 PT 13.1 SECONDS (9.4-12.5) H 01/26/18 19:44 INR 1.15 01/26/18 19:44 APTT 27.8 Seconds (25.1-36.5) 01/26/18 19:44 Attending/Attestation - Attestation I have personally seen and examined this patient.: Yes I have fully participated in the care of the patient.: Yes I have reviewed all pertinent clinical information, including history, physical exam and plan: Yes
[2018-02-03] MEDS: Sodium Chloride 0.9% 1,000 ML IV SCH (15:34)
--- NOTE | 2018-02-03 17:32 | CP.PCM.PN ---
Subjective - Date & Time of Evaluation Date of Evaluation: 02/03/18 Time of Evaluation: 14:45 - Subjective Subjective: Infectious Disease Follow Up: February 03, 2018 62 yo female with PMH of DM2 (last A1c 7.3), HTN, CKD IV, OA, and osteomyelitis presented to ED with slurred speech concerning for CVA. Patient was seen and manjit luated at bedside by Podiatry. Patient denies fever/chills, CP, SOB, nausea or vomiting and states she feels much better since ED arrival. Patient states she regularly sees Dr. Raymond and Twila for wound care in the wound care center. MRSA seen in foot wounds. Fever high of 103.5 F during this hospitalization. Patient stating that she feels better today. Afebrile the past 24 hours. Blood cultures negative at 24 hours. New issue this morning of swelling and erythema of the bilateral hands and arms. Serotonin syndrome? Zyvox stopped and Vancomycin restarted. Recheck Vancomycin levels. Noted urine culture with <10,000 E. coli. Objective - Vital Signs/Intake and Output Vital Signs (last 24 hours): Temp Pulse Resp BP Pulse Ox 98.1 F 115 H 16 128/63 98 02/03/18 14:00 02/03/18 14:00 02/03/18 14:00 02/03/18 14:00 02/03/18 14:00 Intake and Output: 02/03/18 02/03/18 06:59 18:59 Intake Total 240 Balance 240 - Medications Medications: Current Medications Aspirin (Ecotrin) 81 mg PO DAILY [facility] Last Admin: 02/03/18 09:48 Dose: 81 mg Heparin Sodium (Porcine) (Heparin) 5,000 units SC Q8 [facility]; Protocol Last Admin: 02/03/18 14:52 Dose: 5,000 units Vancomycin HCl (Vancomycin 750 Mg In Ns) 750 mg in 250 mls @ 167 mls/hr IVPB DAILY [facility]; Protocol Last Admin: 02/03/18 09:48 Dose: 167 mls/hr Sodium Chloride (Sodium Chloride 0.9%) 1,000 mls @ 100 mls/hr IV .Q10H [facility] Last Admin: 02/03/18 15:34 Dose: 100 mls/hr Insulin Human Regular (Humulin R Med) 0 units SC ACHS [facility]; Protocol Last Admin: 02/03/18 11:42 Dose: Not Given Levetiracetam (Keppra) 500 mg PO BID [facility] Last Admin: 02/03/18 09:47 Dose: 500 mg Lorazepam (Ativan) 1 mg IVP Q4H PRN; Protocol PRN Reason: Seizure activity Last Admin: 02/03/18 05:56 Dose: 1 mg Metoprolol Succinate (Toprol Xl) 50 mg PO DAILY [facility] Last Admin: 02/03/18 09:48 Dose: 50 mg Mupirocin (Bactroban Ointment) 0 gm TOP BID [facility] Last Admin: 02/03/18 09:58 Dose: 1 applic Ondansetron HCl (Zofran Inj) 4 mg IVP Q4H PRN PRN Reason: Nausea/Vomiting Last Admin: 01/29/18 16:15 Dose: 4 mg Pantoprazole Sodium (Protonix Ec Tab) 40 mg PO 0600 [facility] Last Admin: 02/03/18 05:59 Dose: 40 mg Sodium Bicarbonate (Sodium Bicarbonate Tab) 1,300 mg PO TID [facility] Last Admin: 02/03/18 14:53 Dose: 1,300 mg Vitamin B Complex/Vit C/Folic Acid (Nephro-Jenny) 1 tab PO 0800 [facility] Last Admin: 02/03/18 09:47 Dose: 1 tab - Labs Labs: 02/02/18 06:00 02/02/18 06:00 PT 13.1 SECONDS (9.4-12.5) H 01/26/18 19:44 INR 1.15 01/26/18 19:44 APTT 27.8 Seconds (25.1-36.5) 01/26/18 19:44 - Constitutional Appears: Non-toxic, No Acute Distress, Cachectic, Chronically Ill - Head Exam Head Exam: ATRAUMATIC, NORMOCEPHALIC - Eye Exam Eye Exam: EOMI, PERRL Pupil Exam: NORMAL ACCOMODATION, PERRL - ENT Exam ENT Exam: Mucous Membranes Moist, Normal External Ear Exam, TM's Normal Bilaterally - Neck Exam Neck Exam: Full ROM, Normal Inspection - Respiratory Exam Respiratory Exam: Clear to Ausculation Bilateral, NORMAL BREATHING PATTERN. absent: Rales, Rhonchi, Wheezes - Cardiovascular Exam Cardiovascular Exam: REGULAR RHYTHM, RRR, +S1, +S2 - GI/Abdominal Exam GI & Abdominal Exam: Soft, Normal Bowel Sounds. absent: Distended, Tenderness - Extremities Exam Additional comments: Vasc: DP/PT pulses palpable 2/4 B/L. Temperature gradient warm to warm from proximal to distal. Cap refill time: < 3 sec to all digits, mild non-pitting edema noted on bilateral LE (R>L) Derm: Right- multiple plantar wounds noted, grade 2, no malodor, no probe to bone, no tunneling, minimal drainage noted, 100% granular base Left- multiple plantar wounds noted, with minimal serous drainage noted, no probe to probe, no tunneling, no malodor, 100% granular base Neuro: Protective sensation is grossly intact B/L Ortho: Mild tenderness to palpation of right foot wound. Left ankle ulceration mildly tender Cultures: MRSA in wound culture. Mild swelling of the bilateral lower arms. Trace erythema. - Neurological Exam Neurological Exam: Alert, Awake, CN II-XII Intact, Oriented x3 - Psychiatric Exam Psychiatric exam: Normal Affect, Normal Mood - Skin Skin Exam: Intact, Normal Color Additional comments: except as listed above. Assessment and Plan - Assessment and Plan (Free Text) Assessment: 62 yo female with DM2 (last A1c 7.3), HTN, CKD IV, OA, and osteomyelitis presenting with slurred speech. Found to have MRSA in wound cultures taken by podiatry. Dr. Raymond debrided left foot wounds. Question of osteomyelitis. Bactoban used on wounds. Supportive care. On Zyvox given the patient's renal issues. Noted fever of 103.5 F during this hospitalization. Afebrile the past 24 hours. Stating that she feels better. Blood cultures negative at 48 hours. The patient this morning developed swelling and erythema of the arms starting from the hands bilaterally. Can not rule out Serotonin Syndrome. Zyvox stopped and Vancomycin restarted. Patient remains afebrile with tachycardia. Noted Urine culture with E. coli of <10,000 CFU/ml. Normally not considered a UTI. Consideration of use of Dalvance through infusion center. 1500mg weekly for 2 weeks. Thank you for allowing me to participate in the care of the patient, we will follow with you.
[2018-02-04] MEDS: Sodium Chloride 0.9% 1,000 ML IV SCH (05:37)
[2018-02-04 07:10] LABS: MEAN CELL VOLUME 95.1 fl (80.0-105.0); MEAN CORPUSCULAR HEMOGLOBIN 29.1 pg (25.0-35.0); MEAN CORPUSCULAR HGB CONC 30.6 g/dl (31.0-37.0); MEAN PLATELET VOLUME 9.9 fl (7.0-11.0); RBC 3.09 10^6/uL (3.5-6.1); RED CELL DISTRIBUTION WIDTH 14.2 % (11.5-14.5); WHITE BLOOD COUNT 6.4 10^3/uL (4.5-11.0)
[2018-02-04 07:26] LABS: ALBUMIN 3.1 g/dL (3.0-4.8); CALCIUM 8.4 mg/dL (8.4-10.5)
--- NOTE | 2018-02-04 07:42 | CARD ---
APPROVED REPORT Date of service: 02/02/2018 EKG Measurement Heart [id number] <Conclusion> Sinus tachycardia Nonspecific ST abnormality
[2018-02-04 07:52] VITALS: RESP 18
[2018-02-04] MEDS: Pantoprazole 40 mg EC Tab PO SCH (07:52)
[2018-02-04] MEDS: Insulin Reg-MEDIUM-Coverage SC SCH ×3 (08:00→17:00)
[2018-02-04] MEDS: Multivitamin Vitamin B Complex (Nephro-Vite) Tab PO SCH (10:53)
[2018-02-04] MEDS: Vancomycin 750mg 750 MG/250 ML BAG IVPB SCH (10:53)
[2018-02-04] MEDS: Metoprolol Succinate 50 mg XL Tab PO SCH (10:53)
[2018-02-04] MEDS ORDERED: Darbepoetin Alfa 60 mcg/ml Inj SC SCH (11:00)
[2018-02-04] MEDS ORDERED: Sodium Chloride 0.45% 1,000 ML IV SCH (11:15)
[2018-02-04] MEDS: Mupirocin 2% Ointment 15 GM TUBE TOP SCH ×2 (12:34→18:41)
--- NOTE | 2018-02-04 13:58 | CP.PCM.PN ---
Subjective - Date & Time of Evaluation Date of Evaluation: 02/04/18 Time of Evaluation: 13:56 - Subjective Subjective: Nephrology Consultation Note: Assessment: Stable seizure foot infection with osteomyelitis Acute Kidney Injury (N17.9) likely pre-renals: improved anemia of chronic disease, acidosis (RTA), hypernatremia, hyperkalemia Diabetic chronic Kidney Disease (E11.22) Hypertensive Chronic Kidney Disease (I12.9) Chronic Kidney Disease (N18.3) Stage 3 hearing loss, esophageal stenosis, basal cell CA on nasal skin s/p removal Plan No acute need for renal replacement therapy at this time. No ACEI/ARB due to FREDY and hyperkalemia. maintain hemodynamics stable. avoid hypotension Monitor Input/Output, daily weights and renal function with basic metabolic panel continue Sodium bicarb 1300 mg tid dose of ananesp 60 mcg on 02/04/18, as needed PRBC transfusion can d/c IVF. encourage oral free water intake ID and GI following Dose meds/antibiotics for improved GFR. Glycemic control Further work up/management as per primary team Thanks for allowing me to participate in care of your patient. Will follow patient with you. Please call if any Qs. had d/w team Dr Javier Reyes Office: [phone] CC; seizure HPI: Pt is a 62 y/o F with hx of diabetes Mellitus ( x 8-9 years) with re tinopathy, hypertension, hearing loss, esophageal stenosis, chronic anemia, basal cell CA on nasal skin s/p removal, recurrent AKIs, now has CKD stage 3 with anemia, acidosis and hyperkalemia, dehydration with limited oral intake and incr GI fluid loss came with seizure. renal consult for FREDY and lytes management. pt also planned for MRI brain w/c Denies chest pain, palpitation, shortness of breath, leg swelling. Has chronic loose stool 2-3 times/day but better now a days. ROS: pt c.o skin rash. no CP/SOB. no pain abdomen. all other negative except loose stool General Appearance: comfortable, in no acute respiratory distress, co-operative. thin built. Vitals reviewed and noted Head; Atraumatic, normocephalic ENT: no ulcers no thrush. Tongue is midline. Oropharynx: no rash or ulcers. Hard of hearing. Uses hearing aid. EYES: Pupils are equal, round and reactive to light accommodation. Eye muscles and extraocular movement intact. Sclera is anicteric. Neck; supple no lymphadenopathy, no thyromegaly or bruit Lungs: Normal respiratory rate/effort. Breath sounds bilateral equal and clear Heart: normal rate. s1s2 normal. No rub or gallop. Extremities: 1+ edema with wound dressed at feet. No varicose veins. Hand osteoarthritic deformities +. Neurological: Patient is alert, awake and oriented to person, place and time. No focal deficit. Strength bilateral appropriate and equal Skin: Warm and dry. Normal turgor. Palpitation: Normal elasticity for age. has rash in lower/upper extremities Abdomen: Abdomen is soft. Bowel sounds +. There is no abdominal tenderness, no guarding/rigidity or organomegaly Psych: normal insight and normal affect/mood MSK: no joint tenderness or swelling. hands swelling noted : kidney or bladder not palpable Labs/imaging reviewed. Past medical history, past surgical history, family history, social history, allergy reviewed and noted as below Family hx: no hx of CKD. Rest non-contributory Work up: 09/13/2016: GN serologies all negative, scleroderma work up neg, SPEP/LUDY neg Renal sono: b/l cortical atrophy. Small 1 cm Rt kidney simple cyst. Objective - Vital Signs/Intake and Output Vital Signs (last 24 hours): Temp Pulse Resp BP Pulse Ox 98 F 95 H 18 136/56 L 99 02/04/18 06:00 02/04/18 10:53 02/04/18 06:00 02/04/18 06:00 02/04/18 06:00 Intake and Output: 02/04/18 02/04/18 06:59 18:59 Intake Total 120 Balance 120 - Medications Medications: Current Medications Aspirin (Ecotrin) 81 mg PO DAILY [facility] Last Admin: 02/04/18 10:52 Dose: 81 mg Darbepoetin Brown (Aranesp) 60 mcg SC QWK [facility] Last Admin: 02/04/18 13:08 Dose: 60 mcg Ferrous Gluconate (Fergon) 324 mg PO TID [facility] Last Admin: 02/04/18 13:08 Dose: 324 mg Heparin Sodium (Porcine) (Heparin) 5,000 units SC Q8 [facility]; Protocol Last Admin: 02/04/18 13:08 Dose: 5,000 units Vancomycin HCl (Vancomycin 750 Mg In Ns) 750 mg in 250 mls @ 167 mls/hr IVPB DAILY [facility]; Protocol Last Admin: 02/04/18 10:53 Dose: 167 mls/hr Sodium Chloride (Sodium Chloride 0.45%) 1,000 mls @ 100 mls/hr IV .Q10H [facility] Last Admin: 02/04/18 11:20 Dose: 100 mls/hr Insulin Human Regular (Humulin R Med) 0 units SC ACHS [facility]; Protocol Last Admin: 02/04/18 12:34 Dose: 1 unit Levetiracetam (Keppra) 500 mg PO BID [facility] Last Admin: 02/04/18 10:52 Dose: 500 mg Lorazepam (Ativan) 1 mg IVP Q4H PRN; Protocol PRN Reason: Seizure activity Last Admin: 02/03/18 22:01 Dose: 1 mg Metoprolol Succinate (Toprol Xl) 50 mg PO DAILY [facility] Last Admin: 02/04/18 10:53 Dose: 50 mg Mupirocin (Bactroban Ointment) 0 gm TOP BID [facility] Last Admin: 02/04/18 12:34 Dose: 1 applic Ondansetron HCl (Zofran Inj) 4 mg IVP Q4H PRN PRN Reason: Nausea/Vomiting Last Admin: 01/29/18 16:15 Dose: 4 mg Pantoprazole Sodium (Protonix Ec Tab) 40 mg PO 0600 [facility] Last Admin: 02/04/18 07:52 Dose: Not Given Sodium Bicarbonate (Sodium Bicarbonate Tab) 1,300 mg PO TID [facility] Last Admin: 02/04/18 13:09 Dose: 1,300 mg Vitamin B Complex/Vit C/Folic Acid (Nephro-Jenny) 1 tab PO 0800 [facility] Last Admin: 02/04/18 10:53 Dose: 1 tab - Labs Labs: 02/04/18 06:20 02/04/18 06:20 PT 13.1 SECONDS (9.4-12.5) H 01/26/18 19:44 INR 1.15 01/26/18 19:44 APTT 27.8 Seconds (25.1-36.5) 01/26/18 19:44
--- NOTE | 2018-02-04 14:59 | CP.PCM.PN ---
<Adilson Burdick - Last Filed: 02/04/18 14:56> Subjective - Date & Time of Evaluation Date of Evaluation: 02/04/18 Time of Evaluation: 14:56 - Subjective Subjective: INTERNAL MEDICINE PROGRESS NOTE FOR DR. GALLITO Burdick PGY1 Pt seen and examined at bedside this am. Nursing reports pt has been eating less. No acute events overnight. Pt is seen eating breakfast. She denies 12 point ROS Objective - Vital Signs/Intake and Output Vital Signs (last 24 hours): Temp Pulse Resp BP Pulse Ox 98 F 109 H 18 139/63 100 02/04/18 14:00 02/04/18 14:00 02/04/18 14:00 02/04/18 14:00 02/04/18 14:00 Intake and Output: 02/04/18 02/04/18 06:59 18:59 Intake Total 120 Balance 120 - Medications Medications: Current Medications Aspirin (Ecotrin) 81 mg PO DAILY [facility] Last Admin: 02/04/18 10:52 Dose: 81 mg Darbepoetin Brown (Aranesp) 60 mcg SC QWK [facility] Last Admin: 02/04/18 13:08 Dose: 60 mcg Ferrous Gluconate (Fergon) 324 mg PO TID [facility] Last Admin: 02/04/18 13:08 Dose: 324 mg Heparin Sodium (Porcine) (Heparin) 5,000 units SC Q8 [facility]; Protocol Last Admin: 02/04/18 13:08 Dose: 5,000 units Vancomycin HCl (Vancomycin 750 Mg In Ns) 750 mg in 250 mls @ 167 mls/hr IVPB DAILY [facility]; Protocol Last Admin: 02/04/18 10:53 Dose: 167 mls/hr Sodium Chloride (Sodium Chloride 0.45%) 1,000 mls @ 100 mls/hr IV .Q10H [facility] Last Admin: 02/04/18 11:20 Dose: 100 mls/hr Insulin Human Regular (Humulin R Med) 0 units SC ACHS [facility]; Protocol Last Admin: 02/04/18 12:34 Dose: 1 unit Levetiracetam (Keppra) 500 mg PO BID [facility] Last Admin: 02/04/18 10:52 Dose: 500 mg Lorazepam (Ativan) 1 mg IVP Q4H PRN; Protocol PRN Reason: Seizure activity Last Admin: 02/03/18 22:01 Dose: 1 mg Metoprolol Succinate (Toprol Xl) 50 mg PO DAILY [facility] Last Admin: 02/04/18 10:53 Dose: 50 mg Mupirocin (Bactroban Ointment) 0 gm TOP BID [facility] Last Admin: 02/04/18 12:34 Dose: 1 applic Ondansetron HCl (Zofran Inj) 4 mg IVP Q4H PRN PRN Reason: Nausea/Vomiting Last Admin: 01/29/18 16:15 Dose: 4 mg Pantoprazole Sodium (Protonix Ec Tab) 40 mg PO 0600 [facility] Last Admin: 02/04/18 07:52 Dose: Not Given Sodium Bicarbonate (Sodium Bicarbonate Tab) 1,300 mg PO TID [facility] Last Admin: 02/04/18 13:09 Dose: 1,300 mg Vitamin B Complex/Vit C/Folic Acid (Nephro-Jenny) 1 tab PO 0800 [facility] Last Admin: 02/04/18 10:53 Dose: 1 tab - Labs Labs: 02/04/18 06:20 02/04/18 06:20 PT 13.1 SECONDS (9.4-12.5) H 01/26/18 19:44 INR 1.15 01/26/18 19:44 APTT 27.8 Seconds (25.1-36.5) 01/26/18 19:44 - Constitutional Appears: Well, Non-toxic, No Acute Distress, Cachectic - Head Exam Head Exam: NORMAL INSPECTION, NORMOCEPHALIC - Eye Exam Eye Exam: EOMI, Normal appearance - ENT Exam ENT Exam: Mucous Membranes Moist - Neck Exam Neck Exam: Normal Inspection - Respiratory Exam Respiratory Exam: Clear to Ausculation Bilateral, NORMAL BREATHING PATTERN - Cardiovascular Exam Cardiovascular Exam: Tachycardia, +S1, +S2 - GI/Abdominal Exam GI & Abdominal Exam: Soft, Normal Bowel Sounds. absent: Tenderness - Extremities Exam Extremities Exam: Normal Inspection. absent: Calf Tenderness - Back Exam Back Exam: NORMAL INSPECTION - Neurological Exam Neurological Exam: Alert, Awake, Oriented x3 - Psychiatric Exam Psychiatric exam: Normal Affect, Normal Mood - Skin Skin Exam: Dry, Intact, Warm Additional comments: erythema b/l u/e improving Assessment and Plan - Assessment and Plan (Free Text) Assessment: 62-year-old female with past medical history significant for type 2 diabetes, hypertension, chronic kidney disease stage IV, osteoarthritis, and osteomyelitis presented to the emergency room with slurred speech and possible seizure, subsequently found to have MRSA growing from L foot ulcer Plan: Sepsis likely 2/2 osteomyelitis L foot wound culture growing MRSA Leukocytosis resolved Zyvox caused adverse reaction, likely secondary to serotonin syndrome Per ID, will try to get pt approved for weekly dalvanz for 2 weeks. Prescription written out and given to case management. Switched antibiotics to vancomycin based on ID recs May require midline placement d/t poor IV access Requires IV abx/fluid MRI showing L foot osteo Bactroban for the wounds Follow-up podiatry recs Tachycardia Hx of tachycardia previously EKG showing sinus tachy Continue IV hydration FREDY and CKD stage IV Diabetic/hypertensive nephropathy Likely prerenal FREDY d/t hypotension Cr increased today. Related to hypotension/prerenal/infection Continue IV fluids No ACEI/ARB due to FREDY/hypotension continue bicarb. improving Transfuse pRBC prn Nephro does not recommend JOANNA w/MRI d/t Fredy MRI without contrast ordered per podiatry recs Dysarthria 2/2 Complex partial seizure 24 hr EEG read by neuro. normal Continue Keppra 500BID per recs Neurosurgery consulted d/t MRI changes. Recommend repeating MRI in one month. Repeat MRI with contrast once renal function stabilizes Patient has no hx of prior episodes, no hx of seizures Dysarthria has resolved now CT head without evidence of acute intracranial hemorrhage Neuro check q4h Aspiration and seizure pxns Ativan q4h PRN for any additional seizure activity PT evaluate and treat Transaminitis Patient has hx of bile duct dilatation secondary to cholecystectomy Elevated liver enzymes likely secondary to steatohepatitis. Hepatitis serology is negative GI consulted. Appreciate recs Abdomen ultrasound is unremarkable Anemia of chronic disease Likely secondary to underlying renal dysfunction H/H stable Consider outpatient colonoscopy if anemia is worsening or does not improve Hx DM2 Pt not eating well Consult pullman clerk start calorie counting Hold metformin & januvia while inpatient ISS medium coverage Point of care fingerstick glucose ACHS PPX: DVT: SC heparin GI: Protonix po Case seen, examined and discussed with attending physician, Dr. Rodríguez <Jaun Rodríguez - Last Filed: 02/04/18 16:45> Objective - Vital Signs/Intake and Output Vital Signs (last 24 hours): Temp Pulse Resp BP Pulse Ox 98 F 109 H 18 139/63 100 02/04/18 14:00 02/04/18 14:00 02/04/18 14:00 02/04/18 14:00 02/04/18 14:00 Intake and Output: 02/04/18 02/04/18 06:59 18:59 Intake Total 120 Balance 120 - Medications Medications: Current Medications Aspirin (Ecotrin) 81 mg PO DAILY [facility] Last Admin: 02/04/18 10:52 Dose: 81 mg Darbepoetin Brown (Aranesp) 60 mcg SC QWK [facility] Last Admin: 02/04/18 13:08 Dose: 60 mcg Ferrous Gluconate (Fergon) 324 mg PO TID [facility] Last Admin: 02/04/18 13:08 Dose: 324 mg Heparin Sodium (Porcine) (Heparin) 5,000 units SC Q8 [facility]; Protocol Last Admin: 02/04/18 13:08 Dose: 5,000 units Vancomycin HCl (Vancomycin 750 Mg In Ns) 750 mg in 250 mls @ 167 mls/hr IVPB DAILY [facility]; Protocol Last Admin: 02/04/18 10:53 Dose: 167 mls/hr Sodium Chloride (Sodium Chloride 0.45%) 1,000 mls @ 100 mls/hr IV .Q10H [facility] Last Admin: 02/04/18 11:20 Dose: 100 mls/hr Insulin Human Regular (Humulin R Med) 0 units SC ACHS [facility]; Protocol Last Admin: 02/04/18 12:34 Dose: 1 unit Levetiracetam (Keppra) 500 mg PO BID [facility] Last Admin: 02/04/18 10:52 Dose: 500 mg Lorazepam (Ativan) 1 mg IVP Q4H PRN; Protocol PRN Reason: Seizure activity Last Admin: 02/03/18 22:01 Dose: 1 mg Metoprolol Succinate (Toprol Xl) 50 mg PO DAILY [facility] Last Admin: 02/04/18 10:53 Dose: 50 mg Mupirocin (Bactroban Ointment) 0 gm TOP BID [facility] Last Admin: 02/04/18 12:34 Dose: 1 applic Ondansetron HCl (Zofran Inj) 4 mg IVP Q4H PRN PRN Reason: Nausea/Vomiting Last Admin: 01/29/18 16:15 Dose: 4 mg Pantoprazole Sodium (Protonix Ec Tab) 40 mg PO 0600 [facility] Last Admin: 02/04/18 07:52 Dose: Not Given Sodium Bicarbonate (Sodium Bicarbonate Tab) 1,300 mg PO TID [facility] Last Admin: 02/04/18 13:09 Dose: 1,300 mg Vitamin B Complex/Vit C/Folic Acid (Nephro-Jenny) 1 tab PO 0800 [facility] Last Admin: 02/04/18 10:53 Dose: 1 tab - Labs Labs: 02/04/18 06:20 02/04/18 06:20 PT 13.1 SECONDS (9.4-12.5) H 01/26/18 19:44 INR 1.15 01/26/18 19:44 APTT 27.8 Seconds (25.1-36.5) 01/26/18 19:44 Attending/Attestation - Attestation I have personally seen and examined this patient.: Yes I have fully participated in the care of the patient.: Yes I have reviewed all pertinent clinical information, including history, physical exam and plan: Yes Notes (Text): 02/04/18 16:41 Attending note; Patient seen and examined with resident. Patient is alert and awake. bale to increase po fluid intake. Tachycardia is resolving slowly with IVF. Not in any acute distress/denies any pain. Left lower extremity in dressing. Patient is 62-year-old female with past medical history significant for type 2 diabetes, hypertension, chronic kidney disease stage IV, osteoarthritis, and osteomyelitis presented to the emergency room with slurred speech and possible seizure. 1. Sepsis likely secondary to cellulitis and osteomyelitis. Wound culture positive for MRSA. Patient is currently afebrile. Tachycardia is improving. Blood cultures negative. Urine cultures positive for E. Coli < 10,000 colonies. Possible reaction from Zyvox. Zyvox stopped by ID. Continue with Vancomycin. plan to arrange Dalvance if approved by insurance. 2. Bilateral feet wounds and cellulitis. MRI right foot showed no evidence of osteomyelitis. MRI left foot showed new focal bone marrow edema and possible cortical erosion at the plantar aspect of the mid calcaneus top hat body maker for new osteomyelitis. Continue dressing per podiatry. Continue Multi-Podus boots as needed. Continue local wound care. Lower extremity CASSIDY showed relatively normal CASSIDY and PVR examination at rest. 3. FREDY. Creatinine is 1.2 today. continue IVF. Continue Nephro-Jenny and sodium bicarbonate. 4. Anemia of chronic disease. H&H stable. Stool for occult blood negative. Patient status post 1 unit packed red blood cells on 01/27/2018. Continue to monitor CBC. 5. Essential hypertension. Continue metoprolol. 6. Type 2 diabetes. Continue insulin sliding scale. Continue to monitor Accu- Cheks. GI/DVT prophylaxis. Protonix/heparin. Case discussed with ID in detail. Discussed with case folder for Ruma cannon. PT evaluation appreciated. Subacute rehabilitation recommended. Plan for subacute rehabilitation. Upon discharge the patient will follow up with PMD Dr. Galvez. Case discussed with PMD in detail.
--- NOTE | 2018-02-04 16:17 | CP.PCM.PN ---
Subjective - Date & Time of Evaluation Date of Evaluation: 02/04/18 Time of Evaluation: 14:00 - Subjective Subjective: Infectious Disease Follow Up: February 04, 2018 62 yo female with PMH of DM2 (last A1c 7.3), HTN, CKD IV, OA, and osteomyelitis presented to ED with slurred speech concerning for CVA. Patient was seen and manjit luated at bedside by Podiatry. Patient denies fever/chills, CP, SOB, nausea or vomiting and states she feels much better since ED arrival. Patient states she regularly sees Dr. Raymond and Twila for wound care in the wound care center. MRSA seen in foot wounds. Fever high of 103.5 F during this hospitalization. Patient stating that she feels better today. Afebrile the past 24 hours. Blood cultures negative at 24 hours. New issue this morning of swelling and erythema of the bilateral hands and arms. Serotonin syndrome? Zyvox stopped and Vancomycin restarted. Recheck Vancomycin levels. Noted urine culture with <10,000 E. coli. Renal function improving. Appetite for the patient is weak. Objective - Vital Signs/Intake and Output Vital Signs (last 24 hours): Temp Pulse Resp BP Pulse Ox 98 F 109 H 18 139/63 100 02/04/18 14:00 02/04/18 14:00 02/04/18 14:00 02/04/18 14:00 02/04/18 14:00 Intake and Output: 02/04/18 02/04/18 06:59 18:59 Intake Total 120 Balance 120 - Medications Medications: Current Medications Aspirin (Ecotrin) 81 mg PO DAILY [facility] Last Admin: 02/04/18 10:52 Dose: 81 mg Darbepoetin Brown (Aranesp) 60 mcg SC QWK [facility] Last Admin: 02/04/18 13:08 Dose: 60 mcg Ferrous Gluconate (Fergon) 324 mg PO TID [facility] Last Admin: 02/04/18 13:08 Dose: 324 mg Heparin Sodium (Porcine) (Heparin) 5,000 units SC Q8 [facility]; Protocol Last Admin: 02/04/18 13:08 Dose: 5,000 units Vancomycin HCl (Vancomycin 750 Mg In Ns) 750 mg in 250 mls @ 167 mls/hr IVPB DAILY [facility]; Protocol Last Admin: 02/04/18 10:53 Dose: 167 mls/hr Sodium Chloride (Sodium Chloride 0.45%) 1,000 mls @ 100 mls/hr IV .Q10H [facility] Last Admin: 02/04/18 11:20 Dose: 100 mls/hr Insulin Human Regular (Humulin R Med) 0 units SC ACHS [facility]; Protocol Last Admin: 02/04/18 12:34 Dose: 1 unit Levetiracetam (Keppra) 500 mg PO BID [facility] Last Admin: 02/04/18 10:52 Dose: 500 mg Lorazepam (Ativan) 1 mg IVP Q4H PRN; Protocol PRN Reason: Seizure activity Last Admin: 02/03/18 22:01 Dose: 1 mg Metoprolol Succinate (Toprol Xl) 50 mg PO DAILY [facility] Last Admin: 02/04/18 10:53 Dose: 50 mg Mupirocin (Bactroban Ointment) 0 gm TOP BID [facility] Last Admin: 02/04/18 12:34 Dose: 1 applic Ondansetron HCl (Zofran Inj) 4 mg IVP Q4H PRN PRN Reason: Nausea/Vomiting Last Admin: 01/29/18 16:15 Dose: 4 mg Pantoprazole Sodium (Protonix Ec Tab) 40 mg PO 0600 [facility] Last Admin: 02/04/18 07:52 Dose: Not Given Sodium Bicarbonate (Sodium Bicarbonate Tab) 1,300 mg PO TID [facility] Last Admin: 02/04/18 13:09 Dose: 1,300 mg Vitamin B Complex/Vit C/Folic Acid (Nephro-Jenny) 1 tab PO 0800 [facility] Last Admin: 02/04/18 10:53 Dose: 1 tab - Labs Labs: 02/04/18 06:20 02/04/18 06:20 PT 13.1 SECONDS (9.4-12.5) H 01/26/18 19:44 INR 1.15 01/26/18 19:44 APTT 27.8 Seconds (25.1-36.5) 01/26/18 19:44 - Constitutional Appears: Non-toxic, No Acute Distress, Cachectic, Chronically Ill - Head Exam Head Exam: ATRAUMATIC, NORMOCEPHALIC - Eye Exam Eye Exam: EOMI, PERRL Pupil Exam: NORMAL ACCOMODATION, PERRL - ENT Exam ENT Exam: Mucous Membranes Moist, Normal External Ear Exam, TM's Normal Bilaterally - Neck Exam Neck Exam: Full ROM, Normal Inspection - Respiratory Exam Respiratory Exam: Clear to Ausculation Bilateral, NORMAL BREATHING PATTERN. absent: Rales, Rhonchi, Wheezes - Cardiovascular Exam Cardiovascular Exam: REGULAR RHYTHM, RRR, +S1, +S2 - GI/Abdominal Exam GI & Abdominal Exam: Soft, Normal Bowel Sounds. absent: Distended, Tenderness - Extremities Exam Additional comments: Vasc: DP/PT pulses palpable 2/4 B/L. Temperature gradient warm to warm from proximal to distal. Cap refill time: < 3 sec to all digits, mild non-pitting ed emile noted on bilateral LE (R>L) Derm: Right- multiple plantar wounds noted, grade 2, no malodor, no probe to bone, no tunneling, minimal drainage noted, 100% granular base Left- multiple plantar wounds noted, with minimal serous drainage noted, no probe to probe, no tunneling, no malodor, 100% granular base Neuro: Protective sensation is grossly intact B/L Ortho: Mild tenderness to palpation of right foot wound. Left ankle ulceration mildly tender Cultures: MRSA in wound culture. Mild swelling of the bilateral lower arms. Trace erythema. - Neurological Exam Neurological Exam: Alert, Awake, CN II-XII Intact, Oriented x3 - Psychiatric Exam Psychiatric exam: Normal Affect, Normal Mood - Skin Skin Exam: Intact, Normal Color Additional comments: except as listed above. Assessment and Plan - Assessment and Plan (Free Text) Assessment: 62 yo female with DM2 (last A1c 7.3), HTN, CKD IV, OA, and osteomyelitis presenting with slurred speech. Found to have MRSA in wound cultures taken by podiatry. Dr. Raymond debrided left foot wounds. Question of osteomyelitis. Bactoban used on wounds. Supportive care. On Zyvox given the patient's renal issues. Noted fever of 103.5 F during this hospitalization. Afebrile the past 24 hours. Stating that she feels better. Blood cultures negative at 48 hours. The patient this morning developed swelling and erythema of the arms starting from the hands bilaterally. Can not rule out Serotonin Syndrome. Zyvox stopped and Vancomycin restarted. Patient remains afebrile with tachycardia. Noted Urine culture with E. coli of <10,000 CFU/ml. Normally not considered a UTI. Consideration of use of Dalvance through infusion center. 1500mg weekly for 2 w eeks. Frail patient. Thank you for allowing me to participate in the care of the patient, we will follow with you.
--- NOTE | 2018-02-04 21:11 | CP.PCM.PN ---
<DucCleo - Last Filed: 02/04/18 21:07> Subjective - Date & Time of Evaluation Date of Evaluation: 02/04/18 Time of Evaluation: 21:07 - Subjective Subjective: Podiatry progress note for Dr. Mattson, 62 y/o female patient seen and evaluated at bedside for bilateral lower extremity wounds with cellulitis and possible left foot osteomyelitis . Patient is resting comfortably in her bed, however, states discomfort due to the m ultipodus boots. Patient denies any overnight F/N/V/C or SOB. Patient denies any other pedal complaints at this time. Objective - Vital Signs/Intake and Output Vital Signs (last 24 hours): Temp Pulse Resp BP Pulse Ox 98 F 109 H 18 139/63 100 02/04/18 14:00 02/04/18 14:00 02/04/18 14:00 02/04/18 14:00 02/04/18 14:00 - Medications Medications: Current Medications Aspirin (Ecotrin) 81 mg PO DAILY [facility] Last Admin: 02/04/18 10:52 Dose: 81 mg Darbepoetin Brown (Aranesp) 60 mcg SC QWK [facility] Last Admin: 02/04/18 13:08 Dose: 60 mcg Ferrous Gluconate (Fergon) 324 mg PO TID [facility] Last Admin: 02/04/18 18:41 Dose: 324 mg Heparin Sodium (Porcine) (Heparin) 5,000 units SC Q8 [facility]; Protocol Last Admin: 02/04/18 13:08 Dose: 5,000 units Vancomycin HCl (Vancomycin 750 Mg In Ns) 750 mg in 250 mls @ 167 mls/hr IVPB DAILY [facility]; Protocol Last Admin: 02/04/18 10:53 Dose: 167 mls/hr Sodium Chloride (Sodium Chloride 0.45%) 1,000 mls @ 100 mls/hr IV .Q10H [facility] Last Admin: 02/04/18 11:20 Dose: 100 mls/hr Insulin Human Regular (Humulin R Med) 0 units SC ACHS [facility]; Protocol Last Admin: 02/04/18 17:00 Dose: Not Given Levetiracetam (Keppra) 500 mg PO BID [facility] Last Admin: 02/04/18 18:41 Dose: 500 mg Lorazepam (Ativan) 1 mg IVP Q4H PRN; Protocol PRN Reason: Seizure activity Last Admin: 02/03/18 22:01 Dose: 1 mg Metoprolol Succinate (Toprol Xl) 50 mg PO DAILY [facility] Last Admin: 02/04/18 10:53 Dose: 50 mg Mupirocin (Bactroban Ointment) 0 gm TOP BID [facility] Last Admin: 02/04/18 18:41 Dose: 1 applic Ondansetron HCl (Zofran Inj) 4 mg IVP Q4H PRN PRN Reason: Nausea/Vomiting Last Admin: 01/29/18 16:15 Dose: 4 mg Pantoprazole Sodium (Protonix Ec Tab) 40 mg PO 0600 [facility] Last Admin: 02/04/18 07:52 Dose: Not Given Sodium Bicarbonate (Sodium Bicarbonate Tab) 1,300 mg PO TID [facility] Last Admin: 02/04/18 18:41 Dose: 1,300 mg Vitamin B Complex/Vit C/Folic Acid (Nephro-Jenny) 1 tab PO 0800 [facility] Last Admin: 02/04/18 10:53 Dose: 1 tab - Labs Labs: 02/04/18 06:20 02/04/18 06:20 PT 13.1 SECONDS (9.4-12.5) H 01/26/18 19:44 INR 1.15 01/26/18 19:44 APTT 27.8 Seconds (25.1-36.5) 01/26/18 19:44 - Constitutional Appears: Well, Non-toxic, No Acute Distress - Head Exam Head Exam: ATRAUMATIC, NORMOCEPHALIC - Extremities Exam Additional comments: Lower extremity focused examination: Vasc: DP/PT pulses palpable 2/4 B/L. Temperature gradient warm to warm from proximal to distal. Cap refill time: < 3 sec to all digits, mild non-pitting edema noted on bilateral LE (R>L) Neuro: Protective sensation is grossly intact B/L Derm: Right- multiple improving, closed plantar wounds, no malodor, no probe to bone, no tunneling, No drainage noted, No Malodor. Wounds covered with hyperkeratotic skin. Noted superficial scratch in the back of the right leg. Left- multiple plantar wounds noted, with no drainage noted, no probe to probe, no tunneling, no malodor. Wounds covered with hyperkeratotic skin MSK: No pain on palpation of the foot wound. Left ankle ulceration mildly tender - Neurological Exam Neurological Exam: Alert, Awake - Psychiatric Exam Psychiatric exam: Normal Affect, Normal Mood Assessment and Plan - Assessment and Plan (Free Text) Assessment: 62 y/o female patient seen with multiple bilateral feet wounds with cellulitis, improving Plan: Patient seen and evaluated at the bedside. Plan discussed with Dr. Mattson Wound Culture: MRSA No dressing applied to bilateral feet at this time Optifoam applied to B/L LE posteriorly Continue Abx as per ID Patient to wear Multipodus boots as needed R foot MRI: No evidence of OM. L foot MRI: Chuck focal bone marrow edema at the calcaneous and cortical erosions suggestive of osteomyelitis. also new focal bone marrow edema of the 1st metatarsal bone compared to the last study suggestive of osteomyelitis. Patient to ambulates in the surgical shoe at all times No surgical podiatric intervention at this time Podiatry will continue to follow up the patient while in house <Leatha Mattson - Last Filed: 02/07/18 07:54> Objective - Vital Signs/Intake and Output Vital Signs (last 24 hours): Temp Pulse Resp BP Pulse Ox 97.6 F 90 18 135/62 99 02/05/18 06:00 02/05/18 11:07 02/05/18 06:00 02/05/18 11:07 02/05/18 06:00 - Labs Labs: 02/05/18 06:30 02/05/18 06:30 PT 13.1 SECONDS (9.4-12.5) H 01/26/18 19:44 INR 1.15 01/26/18 19:44 APTT 27.8 Seconds (25.1-36.5) 01/26/18 19:44 Attending/Attestation - Attestation I have personally seen and examined this patient.: Yes I have fully participated in the care of the patient.: Yes I have reviewed all pertinent clinical information, including history, physical exam and plan: Yes Notes (Text): 02/07/18 07:53 MRI reviewed and the area of concern on the 1st metatarsal bone does not fit the present clinical picture; there is no redness no open wound no calor and no fluctunce in the area
[2018-02-05] MEDS: Pantoprazole 40 mg EC Tab PO SCH (05:42)
[2018-02-05] MEDS: Insulin Reg-MEDIUM-Coverage SC SCH ×4 (06:30→17:00)
[2018-02-05 07:12] LABS: HEMOGLOBIN 8.4 g/dL (12.0-16.0); MEAN CORPUSCULAR HEMOGLOBIN 29.6 pg (25.0-35.0); MEAN CORPUSCULAR HGB CONC 31.5 g/dl (31.0-37.0); MEAN PLATELET VOLUME 9.9 fl (7.0-11.0); RBC 2.84 10^6/uL (3.5-6.1); WHITE BLOOD COUNT 5.8 10^3/uL (4.5-11.0)
[2018-02-05 07:23] LABS: ALBUMIN 2.8 g/dL (3.0-4.8); ALT/SGPT 126 U/L (7-56); AST/SGOT 66 U/L (14-36); BLOOD UREA NITROGEN 17 mg/dL (7-21); CALCIUM 8.5 mg/dL (8.4-10.5); GFR NON-AFRICAN AMERICAN 51
[2018-02-05] MEDS ORDERED: Magnesium Sulfate 2 gm/50 ml 2 GM/50 ML BAG IVPB ONE (07:45)
[2018-02-05] MEDS ORDERED: Potassium Chloride 20 mEq ER Tab PO STA (07:45)
[2018-02-05 08:41] VITALS: TEMP 97.6; O2SAT 99
[2018-02-05] MEDS: Multivitamin Vitamin B Complex (Nephro-Vite) Tab PO SCH (09:54)
[2018-02-05] MEDS: Metoprolol Succinate 50 mg XL Tab PO SCH (09:55)
[2018-02-05] MEDS: Vancomycin 750mg 750 MG/250 ML BAG IVPB SCH (09:55)
[2018-02-05] MEDS: Mupirocin 2% Ointment 15 GM TUBE TOP SCH ×2 (09:57→18:51)
[2018-02-05] MEDS ORDERED: Sodium Chloride 0.9% 1,000 ML IV STA (10:24)
[2018-02-05 11:08] VITALS: BP 135/62; PULSE 90
--- NOTE | 2018-02-05 12:38 | CP.PCM.DIS ---
<Adilson Burdick - Last Filed: 02/05/18 14:21> Provider - Provider Date of Admission: 01/26/18 20:41 Attending physician: Jaun Rodríguez MD Primary care physician: Arden Galvez MD Consults: Neurology: Dr. Garry Larson, Dr. Airam Potter Podiatry: Dr. Leatha Mattson Gastroenterology: Dr. Arden Hernandes Nephrology: Dr. Galo Reyes Neurosurgery: Dr. Hema Sánchez Infectious Disease: Dr. Singh Lambert Time Spent in preparation of Discharge (in minutes): 45 Diagnosis - Discharge Diagnosis (1) Osteomyelitis of left foot Status: Acute Priority: High (2) Complex partial seizure Status: Acute Priority: High (3) Acute kidney injury Status: Acute Priority: High (4) Hypertension Status: Chronic Priority: Medium (5) Anemia Status: Chronic Priority: Medium (6) Diabetes mellitus Status: Chronic Priority: Medium Hospital Course - Lab Results Lab Results: Micro Results 01/29/18 21:00 Blood-Venous Blood Culture - Final NO GROWTH AFTER 5 DAYS 01/29/18 21:00 Blood-Venous Gram Stain - Final TEST NOT PERFORMED 01/29/18 21:00 Blood-Venous Blood Culture - Final NO GROWTH AFTER 5 DAYS 01/29/18 21:00 Blood-Venous Gram Stain - Final TEST NOT PERFORMED 01/30/18 14:14 Urine,Catheterized Urine Culture - Final Escherichia Coli 01/27/18 03:00 Stool Stool Culture - Final NO SALMONELLA, SHIGELLA OR CAMPYLOBACTER ISOLATED. 01/27/18 10:55 Foot - Left Gram Stain - Final 01/27/18 10:55 Foot - Left Wound Culture - Final Methicillin Resistant S Aureus Most Recent Lab Values WBC 5.8 10^3/uL (4.5-11.0) 02/05/18 06:30 RBC 2.84 10^6/uL (3.5-6.1) L 02/05/18 06:30 Hgb 8.4 g/dL (12.0-16.0) L 02/05/18 06:30 Hct 26.7 % (36.0-48.0) L 02/05/18 06:30 MCV 94.0 fl (80.0-105.0) 02/05/18 06:30 MCH 29.6 pg (25.0-35.0) 02/05/18 06:30 MCHC 31.5 g/dl (31.0-37.0) 02/05/18 06:30 RDW 14.0 % (11.5-14.5) 02/05/18 06:30 Plt Count 217 10^3/uL (120.0-450.0) 02/05/18 06:30 MPV 9.9 fl (7.0-11.0) 02/05/18 06:30 Gran % 61.4 % (50.0-68.0) 02/02/18 06:00 Lymph % (Auto) 23.3 % (22.0-35.0) 02/02/18 06:00 [place] % (Auto) 9.4 % (1.0-6.0) H 02/02/18 06:00 Eos % (Auto) 5.9 % (1.5-5.0) H 02/02/18 06:00 Baso % (Auto) 0.0 % (0.0-3.0) 02/02/18 06:00 Gran # 3.32 (1.4-6.5) 02/02/18 06:00 Lymph # (Auto) 1.3 (1.2-3.4) 02/02/18 06:00 [place] # (Auto) 0.5 (0.1-0.6) 02/02/18 06:00 Eos # (Auto) 0.3 (0.0-0.7) 02/02/18 06:00 Baso # (Auto) 0.00 K/mm3 (0.0-2.0) 02/02/18 06:00 Neutrophils % (Manual) 80 % (50.0-70.0) H 01/30/18 07:00 Band Neutrophils % 10 % (0-2) H 01/30/18 07:00 Lymphocytes % (Manual) 4 % (22.0-35.0) L 01/30/18 07:00 Monocytes % (Manual) 3 % (1.0-6.0) 01/30/18 07:00 Eosinophils % (Manual) 3 % (0.0-3.0) 01/30/18 07:00 Differential Comment See pathology report 01/27/18 05:30 Platelet Evaluation Normal (NORMAL) 01/30/18 07:00 Retic Count 1.32 % (0.5-1.5) 01/28/18 06:00 PT 13.1 SECONDS (9.4-12.5) H 01/26/18 19:44 INR 1.15 01/26/18 19:44 APTT 27.8 Seconds (25.1-36.5) 01/26/18 19:44 Sodium 143 mmol/L (132-148) 02/05/18 06:30 Potassium 3.4 mmol/L (3.6-5.0) L 02/05/18 06:30 Chloride 118 mmol/L (98-107) H 02/05/18 06:30 Carbon Dioxide 18 mmol/L (21-33) L 02/05/18 06:30 Anion Gap 10 (10-20) 02/05/18 06:30 BUN 17 mg/dL (7-21) 02/05/18 06:30 Creatinine 1.1 mg/dl (0.7-1.2) 02/05/18 06:30 Est GFR ( Amer) > 60 02/05/18 06:30 Est GFR (Non-Af Amer) 51 02/05/18 06:30 POC Glucose (mg/dL) 179 mg/dL (65-110) H 02/05/18 11:14 Random Glucose 106 mg/dL (70-110) 02/05/18 06:30 Hemoglobin A1c 6.8 % (4.2-6.5) H 01/26/18 19:44 Calcium 8.5 mg/dL (8.4-10.5) 02/05/18 06:30 Phosphorus 3.5 mg/dL (2.5-4.5) 02/05/18 06:30 Magnesium 1.5 mg/dL (1.7-2.2) L 02/05/18 06:30 Iron 25 ug/dL (45-180) L 01/27/18 09:30 TIBC 224 ug/dL (265-497) L 01/27/18 09:30 % Saturation 11 % (20-55) L 01/27/18 09:30 Transferrin 161.49 mg/dL (206-381) L 01/27/18 05:30 Ferritin 1170.0 ng/mL 01/27/18 05:30 Total Bilirubin 0.6 mg/dL (0.2-1.3) 02/05/18 06:30 AST 66 U/L (14-36) H 02/05/18 06:30 ALT 126 U/L (7-56) H 02/05/18 06:30 Alkaline Phosphatase 190 U/L (38-126) H 02/05/18 06:30 Total Creatine Kinase 43 U/L (35-230) 01/27/18 08:18 Troponin I < 0.01 ng/mL D 01/26/18 19:44 Total Protein 5.6 g/dL (5.8-8.3) L 02/05/18 06:30 Albumin 2.8 g/dL (3.0-4.8) L 02/05/18 06:30 Globulin 2.7 gm/dL 02/05/18 06:30 Albumin/Globulin Ratio 1.0 (1.1-1.8) L 02/05/18 06:30 Triglycerides 166 mg/dL (35-160) H 01/27/18 05:30 Cholesterol 157 mg/dL (130-200) 01/27/18 05:30 LDL Cholesterol Direct 76 mg/dL (0-129) 01/27/18 05:30 HDL Cholesterol 35 mg/dL (29-60) 01/27/18 05:30 Vitamin B12 > 1000 pg/mL (239-931) H 01/27/18 05:30 Folate > 20.0 ng/mL 01/27/18 05:30 Procalcitonin 146.85 NG/ML (0.19-0.49) H 01/30/18 11:00 TSH 3rd Generation 2.47 mIU/mL (0.46-4.68) 01/27/18 05:30 Cortisol AM Sample 12.9 ug/dL (4.46-22.7) 01/27/18 05:30 Urine Color Yellow (YELLOW) 01/30/18 14:41 Urine Appearance Clear (CLEAR) 01/30/18 14:41 Urine pH 5.5 (4.7-8.0) 01/30/18 14:41 Ur Specific [place] 1.020 (1.005-1.035) 01/30/18 14:41 Urine Protein 100 mg/dL (<30 mg/dL) H 01/30/18 14:41 Urine Glucose (UA) 100 mg/dL (NEGATIVE) H 01/30/18 14:41 Urine Ketones Negative mg/dL (NEGATIVE) 01/30/18 14:41 Urine Blood Small (NEGATIVE) H 01/30/18 14:41 Urine Nitrate Negative (NEGATIVE) 01/30/18 14:41 Urine Bilirubin Negative (NEGATIVE) 01/30/18 14:41 Urine Urobilinogen 0.2 E.U./dL (<1 E.U./dL) 01/30/18 14:41 Ur Leukocyte Esterase Negative Altaf/uL (NEGATIVE) 01/30/18 14:41 Urine RBC 10 - 15 /hpf (0-2) 01/30/18 14:41 Urine WBC 0 - 2 /hpf (0-6) 01/30/18 14:41 Ur Epithelial Cells 6 - 8 /hpf (0-5) 01/30/18 14:41 Amorphous Sediment Few 01/30/18 14:41 Urine Bacteria Many (NEG) 01/30/18 14:41 Hyaline Casts 0 - 2 /hpf 01/30/18 14:41 Fine Granular Casts 0 - 2 /hpf (0-2) 01/30/18 14:41 Coarse Granular Casts Small /hpf (0-2) 01/30/18 14:41 Urine Other [place] 01/30/18 14:41 Stool Occult Blood Negative (NEGATIVE) 01/31/18 10:43 Hepatitis A IgM Ab Negative (NEGATIVE) 01/28/18 06:00 Hep Bs Antigen Negative (NEGATIVE) 01/28/18 06:00 Hep B Core IgM Ab Negative (NEGATIVE) 01/28/18 06:00 Hepatitis C Antibody Negative (NEGATIVE) 01/28/18 06:00 Blood Type B POSITIVE 01/26/18 21:03 Antibody Screen Negative 01/26/18 21:03 Crossmatch See Detail 01/26/18 21:03 BBK History Checked Patient has bt 01/26/18 21:03 - Hospital Course Hospital Course: Upon Admission: Ms. Valadez is a 62 year old female with PMH of DM2 (last A1c 7.3), HTN, CKD IV, OA, and osteomyelitis presented to ED with slurred speech concerning for CVA. Her 2 sisters were at bedside and witnessed the incident. They were sitting down eating dinner when she had an episode where it looked like patient was starring into space and then nodded off. After she came out of this episode, her speech was slurred and all the food on the right side of her mouth began to fall out of her mouth. This episode occurred about 20 minutes prior to their arrival in ED. Her sisters became concerned that her slurred speech could be a sign of a stroke so they brought her into ED for prompt evaluation. She has not had a similar episode in the past and denied post-ichtal confusion, bowel/bladder incontinence during the episode, or feeling dizziness or other aura prior to the incident. She admits to a persistent CHAMBERS that has been occurring prior to the incident but denies blurred vision, fever/chills, CP, SOB, cough, peripheral weakness/paralysis, or peripheral numbness/tingling. Her sisters admit that she has had worsening loss of appetite, has not been drinking much water, and believe she has lost weight as well. Hospital Course: CT scan in the ED showed no acute abnormalities, MRA head was negative. Pt was evaluated by neurology, who deemed the episode a "complex partial seizure" and started on Keppra 500 mg bid. 24 hour EEG was ordered which showed no seizures. Pt was evaluated by neurosurgery who recommended MRI of brain which showed 1.7mm new R posterior temporal lobe lesion. 1.8mm L frontal meningioma. 2.1mm meningioma in the R posterior fossa. Neurosurgery did not want to operate at the time, but recommended a follow-up MRI in a month from admission. Pt has a history of CKD, and had FREDY throughout the hospital stay. She was evaluated by nephrology who recommended against MRI with contrast, started her on iron, sodium bicarb, darbepoetin and multivitamin without need for PRACTICAL NURSE CLINICAL COORDINATOR. Pt was found to have transaminitis. GI was consulted, who attributed transaminitis to steatohepatitis. Abdomen ultrasound was unremarkable (12mm CBD). Hepatitis p vanessa was negative. Pt has a history of chronic foot ulcers who she sees podiatry regularly. She was followed by podiatry during the hospital course. Wound culture was obtained of the feet which grew MRSA of the L foot. MRI of both feet were obtained, and there was concern for osteomyelitis of the L foot. Pt was started on vancomycin initially, switched over to linezolid which was stopped due to erythema/swelling of hands and feet. She was switch back to IV vancomycin. ID was following case and recommended pt to get Dalvance 1500mg, which is a weekly injection, for 2 weeks. There were issues with insurance covering the medication, so pt was continued on vancomycin. 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 Pts urine had also grown E. Coli, however she did not have urinary symptoms. Pt was evaluated by PT and accepted to [facility]. Upon Discharge: Pt is doing better this am. She was previously not eating well, but began eating more. She is tolerating her diet, and is ready to undergo therapy. Her vital signs are stable. She has been tachycardic throughout the hospital stay. She was given a bolus of fluids today, as she has not been eating well. Her physical exam is unchanged. B/l foot dressings are clean/dry and intact. She is AxO x 3. She is hemodynamically stable. She has anemia of chronic disease, being treated by nephrology. She is stable for transfer to subacute rehabilitation facility. Discharge Exam - Head Exam Head Exam: ATRAUMATIC, NORMOCEPHALIC Discharge Plan - Discharge Medications Prescriptions: Dalbavancin HCl [Dalvance] 1,500 mg IV QWK #2 pds - Follow Up Plan Condition: STABLE Disposition: TRANSF TO SNF Instructions: Methicillin-Resistant Staphylococcus aureus (MRSA), High Blood Pressure (DC), Seizures, Adult (DC), Osteomyelitis (DC), Chronic Kidney Disease (DC), Diabetes and Diet, Cellulitis (DC) Additional Instructions: Please follow these instructions upon discharge from the hospital: You will be discharged from [facility] to a subacute rehabilitation facility. At this facility, you will be continued on an IV antibiotic to treat the infection in your foot. If you experience any discomfort from this antibiotic, please inform the staff at the facility You will be continued on the same medications that you take at home at the rehabilitation facility. Once you are discharged from the subacute rehabilitation facility, please follow these instructions: Please follow up with your primary care physician, Dr. Glavez within 1 week of discharge from the subacute rehabilitation facility. Please inform him that you were hospitalized recently. Please follow up with your assistant chief engineer (foot doctor), Dr. Mattson within 1 week of being discharged from the rehabilitation facility. Please inform your foot doctor that you were found to have a foot infection (MRSA) while in the hospital Please follow up with your cash posting specialist (kidney doctor), Dr. Reyes within 1 week of being discharged from the hospital. Please inform him that you were recently hospitalized. Please follow up with the neurologist (brain doctor), Dr. Larson, who was seeing you in the hospital within 1 week of being discharged from the hospital. If you have any more seizure-like or stroke-like episodes, please visit the nearest stuart ency room. Please follow up with you gasteroenterologist (stomach doctor), Dr. Hernandes, within 1-2 weeks of being discharged from the rehab facility. If your symptoms return, please visit the nearest emergency room. Referrals: Arden Galvez MD [Primary Care Provider] - Leatha Mattson DPM [Staff Provider] - Hema Sánchez MD [Staff Provider] - Singh Lambert MD [Staff Provider] - Arden Hernandes MD [Staff Provider] - Garry Larson MD [Staff Provider] - Airam Potter MD [Staff Provider] - <Jaun Rodríguez - Last Filed: 02/06/18 07:56> Provider - Provider Date of Admission: 01/26/18 20:41 Attending physician: Jaun Rodríguez MD Primary care physician: Arden Galvez MD Hospital Course - Lab Results Lab Results: Micro Results 01/29/18 21:00 Blood-Venous Blood Culture - Final NO GROWTH AFTER 5 DAYS 01/29/18 21:00 Blood-Venous Gram Stain - Final TEST NOT PERFORMED 01/29/18 21:00 Blood-Venous Blood Culture - Final NO GROWTH AFTER 5 DAYS 01/29/18 21:00 Blood-Venous Gram Stain - Final TEST NOT PERFORMED 01/30/18 14:14 Urine,Catheterized Urine Culture - Final Escherichia Coli 01/27/18 03:00 Stool Stool Culture - Final NO SALMONELLA, SHIGELLA OR CAMPYLOBACTER ISOLATED. 01/27/18 10:55 Foot - Left Gram Stain - Final 01/27/18 10:55 Foot - Left Wound Culture - Final Methicillin Resistant S Aureus Most Recent Lab Values WBC 5.8 10^3/uL (4.5-11.0) 02/05/18 06:30 RBC 2.84 10^6/uL (3.5-6.1) L 02/05/18 06:30 Hgb 8.4 g/dL (12.0-16.0) L 02/05/18 06:30 Hct 26.7 % (36.0-48.0) L 02/05/18 06:30 MCV 94.0 fl (80.0-105.0) 02/05/18 06:30 MCH 29.6 pg (25.0-35.0) 02/05/18 06:30 MCHC 31.5 g/dl (31.0-37.0) 02/05/18 06:30 RDW 14.0 % (11.5-14.5) 02/05/18 06:30 Plt Count 217 10^3/uL (120.0-450.0) 02/05/18 06:30 MPV 9.9 fl (7.0-11.0) 02/05/18 06:30 Gran % 61.4 % (50.0-68.0) 02/02/18 06:00 Lymph % (Auto) 23.3 % (22.0-35.0) 02/02/18 06:00 [place] % (Auto) 9.4 % (1.0-6.0) H 02/02/18 06:00 Eos % (Auto) 5.9 % (1.5-5.0) H 02/02/18 06:00 Baso % (Auto) 0.0 % (0.0-3.0) 02/02/18 06:00 Gran # 3.32 (1.4-6.5) 02/02/18 06:00 Lymph # (Auto) 1.3 (1.2-3.4) 02/02/18 06:00 [place] # (Auto) 0.5 (0.1-0.6) 02/02/18 06:00 Eos # (Auto) 0.3 (0.0-0.7) 02/02/18 06:00 Baso # (Auto) 0.00 K/mm3 (0.0-2.0) 02/02/18 06:00 Neutrophils % (Manual) 80 % (50.0-70.0) H 01/30/18 07:00 Band Neutrophils % 10 % (0-2) H 01/30/18 07:00 Lymphocytes % (Manual) 4 % (22.0-35.0) L 01/30/18 07:00 Monocytes % (Manual) 3 % (1.0-6.0) 01/30/18 07:00 Eosinophils % (Manual) 3 % (0.0-3.0) 01/30/18 07:00 Differential Comment See pathology report 01/27/18 05:30 Platelet Evaluation Normal (NORMAL) 01/30/18 07:00 Retic Count 1.32 % (0.5-1.5) 01/28/18 06:00 PT 13.1 SECONDS (9.4-12.5) H 01/26/18 19:44 INR 1.15 01/26/18 19:44 APTT 27.8 Seconds (25.1-36.5) 01/26/18 19:44 Sodium 143 mmol/L (132-148) 02/05/18 06:30 Potassium 3.4 mmol/L (3.6-5.0) L 02/05/18 06:30 Chloride 118 mmol/L (98-107) H 02/05/18 06:30 Carbon Dioxide 18 mmol/L (21-33) L 02/05/18 06:30 Anion Gap 10 (10-20) 02/05/18 06:30 BUN 17 mg/dL (7-21) 02/05/18 06:30 Creatinine 1.1 mg/dl (0.7-1.2) 02/05/18 06:30 Est GFR ( Amer) > 60 02/05/18 06:30 Est GFR (Non-Af Amer) 51 02/05/18 06:30 POC Glucose (mg/dL) 114 mg/dL (65-110) H 02/05/18 16:07 Random Glucose 106 mg/dL (70-110) 02/05/18 06:30 Hemoglobin A1c 6.8 % (4.2-6.5) H 01/26/18 19:44 Calcium 8.5 mg/dL (8.4-10.5) 02/05/18 06:30 Phosphorus 3.5 mg/dL (2.5-4.5) 02/05/18 06:30 Magnesium 1.5 mg/dL (1.7-2.2) L 02/05/18 06:30 Iron 25 ug/dL (45-180) L 01/27/18 09:30 TIBC 224 ug/dL (265-497) L 01/27/18 09:30 % Saturation 11 % (20-55) L 01/27/18 09:30 Transferrin 161.49 mg/dL (206-381) L 01/27/18 05:30 Ferritin 1170.0 ng/mL 01/27/18 05:30 Total Bilirubin 0.6 mg/dL (0.2-1.3) 02/05/18 06:30 AST 66 U/L (14-36) H 02/05/18 06:30 ALT 126 U/L (7-56) H 02/05/18 06:30 Alkaline Phosphatase 190 U/L (38-126) H 02/05/18 06:30 Total Creatine Kinase 43 U/L (35-230) 01/27/18 08:18 Troponin I < 0.01 ng/mL D 01/26/18 19:44 Total Protein 5.6 g/dL (5.8-8.3) L 02/05/18 06:30 Albumin 2.8 g/dL (3.0-4.8) L 02/05/18 06:30 Globulin 2.7 gm/dL 02/05/18 06:30 Albumin/Globulin Ratio 1.0 (1.1-1.8) L 02/05/18 06:30 Triglycerides 166 mg/dL (35-160) H 01/27/18 05:30 Cholesterol 157 mg/dL (130-200) 01/27/18 05:30 LDL Cholesterol Direct 76 mg/dL (0-129) 01/27/18 05:30 HDL Cholesterol 35 mg/dL (29-60) 01/27/18 05:30 Vitamin B12 > 1000 pg/mL (239-931) H 01/27/18 05:30 Folate > 20.0 ng/mL 01/27/18 05:30 Procalcitonin 146.85 NG/ML (0.19-0.49) H 01/30/18 11:00 TSH 3rd Generation 2.47 mIU/mL (0.46-4.68) 01/27/18 05:30 Cortisol AM Sample 12.9 ug/dL (4.46-22.7) 01/27/18 05:30 Urine Color Yellow (YELLOW) 01/30/18 14:41 Urine Appearance Clear (CLEAR) 01/30/18 14:41 Urine pH 5.5 (4.7-8.0) 01/30/18 14:41 Ur Specific [place] 1.020 (1.005-1.035) 01/30/18 14:41 Urine Protein 100 mg/dL (<30 mg/dL) H 01/30/18 14:41 Urine Glucose (UA) 100 mg/dL (NEGATIVE) H 01/30/18 14:41 Urine Ketones Negative mg/dL (NEGATIVE) 01/30/18 14:41 Urine Blood Small (NEGATIVE) H 01/30/18 14:41 Urine Nitrate Negative (NEGATIVE) 01/30/18 14:41 Urine Bilirubin Negative (NEGATIVE) 01/30/18 14:41 Urine Urobilinogen 0.2 E.U./dL (<1 E.U./dL) 01/30/18 14:41 Ur Leukocyte Esterase Negative Altaf/uL (NEGATIVE) 01/30/18 14:41 Urine RBC 10 - 15 /hpf (0-2) 01/30/18 14:41 Urine WBC 0 - 2 /hpf (0-6) 01/30/18 14:41 Ur Epithelial Cells 6 - 8 /hpf (0-5) 01/30/18 14:41 Amorphous Sediment Few 01/30/18 14:41 Urine Bacteria Many (NEG) 01/30/18 14:41 Hyaline Casts 0 - 2 /hpf 01/30/18 14:41 Fine Granular Casts 0 - 2 /hpf (0-2) 01/30/18 14:41 Coarse Granular Casts Small /hpf (0-2) 01/30/18 14:41 Urine Other [place] 01/30/18 14:41 Stool Occult Blood Negative (NEGATIVE) 01/31/18 10:43 Hepatitis A IgM Ab Negative (NEGATIVE) 01/28/18 06:00 Hep Bs Antigen Negative (NEGATIVE) 01/28/18 06:00 Hep B Core IgM Ab Negative (NEGATIVE) 01/28/18 06:00 Hepatitis C Antibody Negative (NEGATIVE) 01/28/18 06:00 Blood Type B POSITIVE 01/26/18 21:03 Antibody Screen Negative 01/26/18 21:03 Crossmatch See Detail 01/26/18 21:03 BBK History Checked Patient has bt 01/26/18 21:03 Attending/Attestation - Attestation I have personally seen and examined this patient.: Yes I have fully participated in the care of the patient.: Yes I have reviewed all pertinent clinical information, including history, physical exam and plan: Yes Notes (Text): 02/06/18 07:53 Attending note; Patient seen and examined with resident. Patient is alert and awake. bale to increase po fluid intake. continuing with nutritional supplement. Patient is 62-year-old female with past medical history significant for type 2 diabetes, hypertension, chronic kidney disease stage IV, osteoarthritis, and osteomyelitis presented to the emergency room with slurred speech and possible seizure. 1. Sepsis secondary to cellulitis and osteomyelitis. Wound culture positive for MRSA. Patient is currently afebrile. Tachycardia is improving. Blood cultures negative. Urine cultures positive for E. Coli < 10,000 colonies. Treated with Vancomycin. Dalvance arranged by foster care case manager. 2. Bilateral feet wounds and cellulitis. MRI right foot showed no evidence of osteomyelitis. MRI left foot showed new focal bone marrow edema and possible cortical erosion at the plantar aspect of the mid calcaneus human service specialist for new osteomyelitis. Continue dressing per podiatry. Continue Multi-Podus boots as needed. Continue local wound care. Lower extremity CASSIDY showed relatively normal CASSIDY and PVR examination at rest. 3. FREDY. Creatinine is 1.1 today. Treated with IVF. Continue Nephro-Jenny and sodium bicarbonate. 4. Anemia of chronic disease. H&H stable. Stool for occult blood negative. Patient status post 1 unit packed red blood cells on 01/27/2018. Continue to monitor CBC. 5. Essential hypertension. Continue metoprolol. 6. Type 2 diabetes. Continue insulin sliding scale. Continue to monitor Accu- Cheks. GI/DVT prophylaxis. Protonix/heparin. PT evaluation appreciated. Subacute rehabilitation recommended. Transfer to [facility] today. Upon discharge the patient will follow up with PMD Dr. Galvez. Case discussed with PMD in detail.
--- NOTE | 2018-02-05 14:43 | CP.PCM.PN ---
Subjective - Date & Time of Evaluation Date of Evaluation: 02/05/18 Time of Evaluation: 14:42 - Subjective Subjective: Nephrology Consultation Note: Assessment: Stable seizure foot infection with osteomyelitis Acute Kidney Injury (N17.9) likely pre-renals: improved anemia of chronic disease, acidosis (RTA), hypernatremia, hyperkalemia Diabetic chronic Kidney Disease (E11.22) Hypertensive Chronic Kidney Disease (I12.9) Chronic Kidney Disease (N18.3) Stage 3 hearing loss, esophageal stenosis, basal cell CA on nasal skin s/p removal Plan No acute need for renal replacement therapy at this time. No ACEI/ARB due to FREDY and hyperkalemia. maintain hemodynamics stable. avoid hypotension Monitor Input/Output, daily weights and renal function with basic metabolic panel continue Sodium bicarb 1300 mg tid dose of ananesp 60 mcg on 02/04/18, as needed PRBC transfusion can d/c IVF. encourage oral free water intake ID and GI following Dose meds/antibiotics for improved GFR. Glycemic control Further work up/management as per primary team Thanks for allowing me to participate in care of your patient. Will follow patient with you. Please call if any Qs. had d/w team Dr Javier Reyes Office: [phone] CC; seizure HPI: Pt is a 62 y/o F with hx of diabetes Mellitus ( x 8-9 years) with re tinopathy, hypertension, hearing loss, esophageal stenosis, chronic anemia, basal cell CA on nasal skin s/p removal, recurrent AKIs, now has CKD stage 3 with anemia, acidosis and hyperkalemia, dehydration with limited oral intake and incr GI fluid loss came with seizure. renal consult for FREDY and lytes management. pt also planned for MRI brain w/c Denies chest pain, palpitation, shortness of breath, leg swelling. Has chronic loose stool 2-3 times/day but better now a days. ROS: pt c.o skin rash. no CP/SOB. no pain abdomen. all other negative except loose stool General Appearance: comfortable, in no acute respiratory distress, co-operative. thin built. Vitals reviewed and noted Head; Atraumatic, normocephalic ENT: no ulcers no thrush. Tongue is midline. Oropharynx: no rash or ulcers. Hard of hearing. Uses hearing aid. EYES: Pupils are equal, round and reactive to light accommodation. Eye muscles and extraocular movement intact. Sclera is anicteric. Neck; supple no lymphadenopathy, no thyromegaly or bruit Lungs: Normal respiratory rate/effort. Breath sounds bilateral equal and clear Heart: normal rate. s1s2 normal. No rub or gallop. Extremities: 1+ edema with wound dressed at feet. No varicose veins. Hand osteoarthritic deformities +. Neurological: Patient is alert, awake and oriented to person, place and time. No focal deficit. Strength bilateral appropriate and equal Skin: Warm and dry. Normal turgor. Palpitation: Normal elasticity for age. has rash in lower/upper extremities Abdomen: Abdomen is soft. Bowel sounds +. There is no abdominal tenderness, no guarding/rigidity or organomegaly Psych: normal insight and normal affect/mood MSK: no joint tenderness or swelling. hands swelling noted : kidney or bladder not palpable Labs/imaging reviewed. Past medical history, past surgical history, family history, social history, allergy reviewed and noted as below Family hx: no hx of CKD. Rest non-contributory Work up: 09/13/2016: GN serologies all negative, scleroderma work up neg, SPEP/LUDY neg Renal sono: b/l cortical atrophy. Small 1 cm Rt kidney simple cyst. Objective - Vital Signs/Intake and Output Vital Signs (last 24 hours): Temp Pulse Resp BP Pulse Ox 97.6 F 90 18 135/62 99 02/05/18 06:00 02/05/18 11:07 02/05/18 06:00 02/05/18 11:07 02/05/18 06:00 Intake and Output: 02/05/18 02/05/18 06:59 18:59 Intake Total 480 Balance 480 - Medications Medications: Current Medications Aspirin (Ecotrin) 81 mg PO DAILY [facility] Last Admin: 02/05/18 09:55 Dose: 81 mg Darbepoetin Brown (Aranesp) 60 mcg SC QWK [facility] Last Admin: 02/04/18 13:08 Dose: 60 mcg Ferrous Gluconate (Fergon) 324 mg PO TID [facility] Last Admin: 02/05/18 13:03 Dose: 324 mg Heparin Sodium (Porcine) (Heparin) 5,000 units SC Q8 [facility]; Protocol Last Admin: 02/05/18 13:12 Dose: Not Given Vancomycin HCl (Vancomycin 750 Mg In Ns) 750 mg in 250 mls @ 167 mls/hr IVPB DAILY [facility]; Protocol Last Admin: 02/05/18 09:55 Dose: 167 mls/hr Sodium Chloride (Sodium Chloride 0.45%) 1,000 mls @ 100 mls/hr IV .Q10H [facility] Last Admin: 02/04/18 11:20 Dose: 100 mls/hr Insulin Human Regular (Humulin R Med) 0 units SC ACHS [facility]; Protocol Last Admin: 02/05/18 13:03 Dose: 1 unit Levetiracetam (Keppra) 500 mg PO BID [facility] Last Admin: 02/05/18 09:55 Dose: 500 mg Lorazepam (Ativan) 1 mg IVP Q4H PRN; Protocol PRN Reason: Seizure activity Last Admin: 02/03/18 22:01 Dose: 1 mg Metoprolol Succinate (Toprol Xl) 50 mg PO DAILY [facility] Last Admin: 02/05/18 09:55 Dose: 50 mg Mupirocin (Bactroban Ointment) 0 gm TOP BID [facility] Last Admin: 02/05/18 09:57 Dose: 1 applic Ondansetron HCl (Zofran Inj) 4 mg IVP Q4H PRN PRN Reason: Nausea/Vomiting Last Admin: 01/29/18 16:15 Dose: 4 mg Pantoprazole Sodium (Protonix Ec Tab) 40 mg PO 0600 [facility] Last Admin: 02/05/18 05:42 Dose: 40 mg Sodium Bicarbonate (Sodium Bicarbonate Tab) 1,300 mg PO TID [facility] Last Admin: 02/05/18 13:03 Dose: 1,300 mg Vitamin B Complex/Vit C/Folic Acid (Nephro-Jenny) 1 tab PO 0800 [facility] Last Admin: 02/05/18 09:54 Dose: 1 tab - Labs Labs: 02/05/18 06:30 02/05/18 06:30 PT 13.1 SECONDS (9.4-12.5) H 01/26/18 19:44 INR 1.15 01/26/18 19:44 APTT 27.8 Seconds (25.1-36.5) 01/26/18 19:44
--- NOTE | 2018-02-05 15:49 | CP.PCM.PN ---
Subjective - Date & Time of Evaluation Date of Evaluation: 02/05/18 Time of Evaluation: 14:00 - Subjective Subjective: Infectious Disease Follow Up: February 05, 2018 62 yo female with PMH of DM2 (last A1c 7.3), HTN, CKD IV, OA, and osteomyelitis presented to ED with slurred speech concerning for CVA. Patient was seen and manjit luated at bedside by Podiatry. Patient denies fever/chills, CP, SOB, nausea or vomiting and states she feels much better since ED arrival. Patient states she regularly sees Dr. Raymond and Twila for wound care in the wound care center. MRSA seen in foot wounds. Fever high of 103.5 F during this hospitalization. Patient stating that she feels better today. Afebrile the past 24 hours. Blood cultures negative at 24 hours. New issue this morning of swelling and erythema of the bilateral hands and arms. Serotonin syndrome? Zyvox stopped and Vancomycin restarted. Recheck Vancomycin levels. Noted urine culture with <10,000 E. coli. Renal function improving. Appetite for the patient is weak. Patient appears frail. Objective - Vital Signs/Intake and Output Vital Signs (last 24 hours): Temp Pulse Resp BP Pulse Ox 97.6 F 90 18 135/62 99 02/05/18 06:00 02/05/18 11:07 02/05/18 06:00 02/05/18 11:07 02/05/18 06:00 Intake and Output: 02/05/18 02/05/18 06:59 18:59 Intake Total 480 Balance 480 - Medications Medications: Current Medications Aspirin (Ecotrin) 81 mg PO DAILY [facility] Last Admin: 02/05/18 09:55 Dose: 81 mg Darbepoetin Brown (Aranesp) 60 mcg SC QWK [facility] Last Admin: 02/04/18 13:08 Dose: 60 mcg Ferrous Gluconate (Fergon) 324 mg PO TID [facility] Last Admin: 02/05/18 13:03 Dose: 324 mg Heparin Sodium (Porcine) (Heparin) 5,000 units SC Q8 [facility]; Protocol Last Admin: 02/05/18 13:12 Dose: Not Given Vancomycin HCl (Vancomycin 750 Mg In Ns) 750 mg in 250 mls @ 167 mls/hr IVPB DAILY [facility]; Protocol Last Admin: 02/05/18 09:55 Dose: 167 mls/hr Sodium Chloride (Sodium Chloride 0.45%) 1,000 mls @ 100 mls/hr IV .Q10H [facility] Last Admin: 02/04/18 11:20 Dose: 100 mls/hr Insulin Human Regular (Humulin R Med) 0 units SC ACHS [facility]; Protocol Last Admin: 02/05/18 13:03 Dose: 1 unit Levetiracetam (Keppra) 500 mg PO BID [facility] Last Admin: 02/05/18 09:55 Dose: 500 mg Lorazepam (Ativan) 1 mg IVP Q4H PRN; Protocol PRN Reason: Seizure activity Last Admin: 02/03/18 22:01 Dose: 1 mg Metoprolol Succinate (Toprol Xl) 50 mg PO DAILY [facility] Last Admin: 02/05/18 09:55 Dose: 50 mg Mupirocin (Bactroban Ointment) 0 gm TOP BID [facility] Last Admin: 02/05/18 09:57 Dose: 1 applic Ondansetron HCl (Zofran Inj) 4 mg IVP Q4H PRN PRN Reason: Nausea/Vomiting Last Admin: 01/29/18 16:15 Dose: 4 mg Pantoprazole Sodium (Protonix Ec Tab) 40 mg PO 0600 [facility] Last Admin: 02/05/18 05:42 Dose: 40 mg Sodium Bicarbonate (Sodium Bicarbonate Tab) 1,300 mg PO TID [facility] Last Admin: 02/05/18 13:03 Dose: 1,300 mg Vitamin B Complex/Vit C/Folic Acid (Nephro-Jenny) 1 tab PO 0800 [facility] Last Admin: 02/05/18 09:54 Dose: 1 tab - Labs Labs: 02/05/18 06:30 02/05/18 06:30 PT 13.1 SECONDS (9.4-12.5) H 01/26/18 19:44 INR 1.15 01/26/18 19:44 APTT 27.8 Seconds (25.1-36.5) 01/26/18 19:44 - Constitutional Appears: Non-toxic, No Acute Distress, Cachectic, Chronically Ill - Head Exam Head Exam: ATRAUMATIC, NORMOCEPHALIC - Eye Exam Eye Exam: EOMI, PERRL Pupil Exam: NORMAL ACCOMODATION, PERRL - ENT Exam ENT Exam: Mucous Membranes Moist, Normal External Ear Exam, TM's Normal Bilaterally - Neck Exam Neck Exam: Full ROM, Normal Inspection - Respiratory Exam Respiratory Exam: Clear to Ausculation Bilateral, NORMAL BREATHING PATTERN. absent: Rales, Rhonchi, Wheezes - Cardiovascular Exam Cardiovascular Exam: REGULAR RHYTHM, RRR, +S1, +S2 - GI/Abdominal Exam GI & Abdominal Exam: Soft, Normal Bowel Sounds. absent: Distended, Tenderness - Extremities Exam Additional comments: Vasc: DP/PT pulses palpable 2/4 B/L. Temperature gradient warm to warm from proximal to distal. Cap refill time: < 3 sec to all digits, mild non-pitting edema noted on bilateral LE (R>L) Derm: Right- multiple plantar wounds noted, grade 2, no malodor, no probe to bone, no tunneling, minimal drainage noted, 100% granular base Left- multiple plantar wounds noted, with minimal serous drainage noted, no probe to probe, no tunneling, no malodor, 100% granular base Neuro: Protective sensation is grossly intact B/L Ortho: Mild tenderness to palpation of right foot wound. Left ankle ulceration mildly tender Cultures: MRSA in wound culture. Mild swelling of the bilateral lower arms. Trace erythema. - Neurological Exam Neurological Exam: Alert, Awake, CN II-XII Intact, Oriented x3 - Psychiatric Exam Psychiatric exam: Normal Affect, Normal Mood - Skin Skin Exam: Intact, Normal Color Additional comments: except as listed above. Assessment and Plan - Assessment and Plan (Free Text) Assessment: 62 yo female with DM2 (last A1c 7.3), HTN, CKD IV, OA, and osteomyelitis presenting with slurred speech. Found to have MRSA in wound cultures taken by podiatry. Dr. Raymond debrided left foot wounds. Question of osteomyelitis. Bactoban used on wounds. Supportive care. On Zyvox given the patient's renal issues. Noted fever of 103.5 F during this hospitalization. Afebrile the past 24 hours. Stating that she feels better. Blood cultures negative at 48 hours. The patient this morning developed swelling and erythema of the arms starting from the hands bilaterally. Can not rule out Serotonin Syndrome. Zyvox stopped and Vancomycin restarted. Patient remains afebrile with tachycardia. Noted Urine culture with E. coli of <10,000 CFU/ml. Normally not considered a UTI. Consideration of use of Dalvance through outpatient infusion center. 1500mg weekly for 2 weeks. Frail patient. [facility] will not cover this medication. If unable to, will have to continue on IV Vancomycin for antibiotic care. Thank you for allowing me to participate in the care of the patient, we will follow with you.
--- NOTE | 2018-02-05 16:30 | CP.PCM.PN ---
<Darrius Xavierdelilah - Last Filed: 02/05/18 16:28> Subjective - Date & Time of Evaluation Date of Evaluation: 02/05/18 Time of Evaluation: 16:28 - Subjective Subjective: Podiatry progress note for Dr. Raymond, 62 y/o female patient seen and evaluated at bedside for bilateral lower extremity wounds with cellulitis and possible left foot osteomyelitis . Patient is resting comfortably in her bed, however, states discomfort due to the m ultipodus boots. Patient denies any overnight F/N/V/C or SOB. Patient denies any other pedal complaints at this time. Objective - Vital Signs/Intake and Output Vital Signs (last 24 hours): Temp Pulse Resp BP Pulse Ox 97.6 F 90 18 135/62 99 02/05/18 06:00 02/05/18 11:07 02/05/18 06:00 02/05/18 11:07 02/05/18 06:00 Intake and Output: 02/05/18 02/05/18 06:59 18:59 Intake Total 480 Balance 480 - Medications Medications: Current Medications Aspirin (Ecotrin) 81 mg PO DAILY [facility] Last Admin: 02/05/18 09:55 Dose: 81 mg Darbepoetin Brown (Aranesp) 60 mcg SC QWK [facility] Last Admin: 02/04/18 13:08 Dose: 60 mcg Ferrous Gluconate (Fergon) 324 mg PO TID [facility] Last Admin: 02/05/18 13:03 Dose: 324 mg Heparin Sodium (Porcine) (Heparin) 5,000 units SC Q8 [facility]; Protocol Last Admin: 02/05/18 13:12 Dose: Not Given Vancomycin HCl (Vancomycin 750 Mg In Ns) 750 mg in 250 mls @ 167 mls/hr IVPB DAILY [facility]; Protocol Last Admin: 02/05/18 09:55 Dose: 167 mls/hr Sodium Chloride (Sodium Chloride 0.45%) 1,000 mls @ 100 mls/hr IV .Q10H [facility] Last Admin: 02/04/18 11:20 Dose: 100 mls/hr Insulin Human Regular (Humulin R Med) 0 units SC ACHS [facility]; Protocol Last Admin: 02/05/18 13:03 Dose: 1 unit Levetiracetam (Keppra) 500 mg PO BID [facility] Last Admin: 02/05/18 09:55 Dose: 500 mg Lorazepam (Ativan) 1 mg IVP Q4H PRN; Protocol PRN Reason: Seizure activity Last Admin: 02/03/18 22:01 Dose: 1 mg Metoprolol Succinate (Toprol Xl) 50 mg PO DAILY [facility] Last Admin: 02/05/18 09:55 Dose: 50 mg Mupirocin (Bactroban Ointment) 0 gm TOP BID [facility] Last Admin: 02/05/18 09:57 Dose: 1 applic Ondansetron HCl (Zofran Inj) 4 mg IVP Q4H PRN PRN Reason: Nausea/Vomiting Last Admin: 01/29/18 16:15 Dose: 4 mg Pantoprazole Sodium (Protonix Ec Tab) 40 mg PO 0600 [facility] Last Admin: 02/05/18 05:42 Dose: 40 mg Sodium Bicarbonate (Sodium Bicarbonate Tab) 1,300 mg PO TID [facility] Last Admin: 02/05/18 13:03 Dose: 1,300 mg Vitamin B Complex/Vit C/Folic Acid (Nephro-Jenny) 1 tab PO 0800 [facility] Last Admin: 02/05/18 09:54 Dose: 1 tab - Labs Labs: 02/05/18 06:30 02/05/18 06:30 PT 13.1 SECONDS (9.4-12.5) H 01/26/18 19:44 INR 1.15 01/26/18 19:44 APTT 27.8 Seconds (25.1-36.5) 01/26/18 19:44 - Constitutional Appears: Well, Non-toxic, No Acute Distress - Head Exam Head Exam: ATRAUMATIC, NORMOCEPHALIC - Extremities Exam Additional comments: Lower extremity focused examination: Vasc: DP/PT pulses palpable 2/4 B/L. Temperature gradient warm to warm from proximal to distal. Cap refill time: < 3 sec to all digits, mild non-pitting edema noted on bilateral LE (R>L) Neuro: Protective sensation is grossly intact B/L Derm: Right- multiple improving, closed plantar wounds, no malodor, no probe to bone, no tunneling, No drainage noted, No Malodor. Wounds covered with hyperkeratotic skin. Noted superficial scratch in the back of the right leg. Left- multiple plantar wounds noted, with no drainage noted, no probe to probe, no tunneling, no malodor. Wounds covered with hyperkeratotic skin MSK: No pain on palpation of the foot wound. Left ankle ulceration mildly tender - Neurological Exam Neurological Exam: Alert, Awake, Oriented x3 - Psychiatric Exam Psychiatric exam: Normal Affect, Normal Mood Assessment and Plan - Assessment and Plan (Free Text) Assessment: 62 y/o female patient seen with multiple bilateral feet wounds with cellulitis, improving Plan: Patient seen and evaluated at the bedside. Plan discussed with Dr. Raymond Wound Culture: MRSA Wounds dressed with xerform, DSD Optifoam applied to B/L LE posteriorly Continue Abx as per ID Patient to wear Multipodus boots as needed R foot MRI: No evidence of OM. L foot MRI: Chuck focal bone marrow edema at the calcaneous and cortical erosions suggestive of osteomyelitis. also new focal bone marrow edema of the 1st metatarsal bone compared to the last study suggestive of osteomyelitis. Patient to ambulates in the surgical shoe at all times No surgical podiatric intervention at this time Podiatry will continue to follow up the patient while in house Patient will follow up in wound care center after discharge <Jose Raymond - Last Filed: 02/06/18 13:40> Objective - Vital Signs/Intake and Output Vital Signs (last 24 hours): Temp Pulse Resp BP Pulse Ox 97.6 F 90 18 135/62 99 02/05/18 06:00 02/05/18 11:07 02/05/18 06:00 02/05/18 11:07 02/05/18 06:00 - Labs Labs: 02/05/18 06:30 02/05/18 06:30 PT 13.1 SECONDS (9.4-12.5) H 01/26/18 19:44 INR 1.15 01/26/18 19:44 APTT 27.8 Seconds (25.1-36.5) 01/26/18 19:44 Attending/Attestation - Attestation I have personally seen and examined this patient.: Yes I have fully participated in the care of the patient.: Yes I have reviewed all pertinent clinical information, including history, physical exam and plan: Yes
== END 2018-02-05 19:55 | DRG 584 ==
LOC: ED 18:47 → ERH 20:41 → 2RSO 23:20 → 5RNO 01-29 18:39
PROVIDERS: ADMIT Internal Medicine; ATTEND Internal Medicine
PROC: 05H633Z Insertion of Infusion Device into Left Subclavian Vein, Percutaneous Approach (ICD-10-PCS; principal; 2018-02-04)
DX: A41.9 Sepsis, unspecified organism (principal); N17.9 Acute kidney failure, unspecified; L03.116 Cellulitis of left lower limb; L03.115 Cellulitis of right lower limb; N18.4 Chronic kidney disease, stage 4 (severe); E11.22 Type 2 diabetes mellitus with diabetic chronic kidney disease; E11.621 Type 2 diabetes mellitus with foot ulcer; L97.519 Non-pressure chronic ulcer of other part of right foot with unspecified severity; L97.529 Non-pressure chronic ulcer of other part of left foot with unspecified severity; E87.5 Hyperkalemia; E11.21 Type 2 diabetes mellitus with diabetic nephropathy; N39.0 Urinary tract infection, site not specified; K75.81 Nonalcoholic steatohepatitis (NASH); E11.319 Type 2 diabetes mellitus with unspecified diabetic retinopathy without macular edema; E87.0 Hyperosmolality and hypernatremia; E11.69 Type 2 diabetes mellitus with other specified complication; B95.62 Methicillin resistant Staphylococcus aureus infection as the cause of diseases classified elsewhere; I12.9 Hypertensive chronic kidney disease with stage 1 through stage 4 chronic kidney disease, or unspecified chronic kidney disease; R47.1 Dysarthria and anarthria; D63.1 Anemia in chronic kidney disease; R19.7 Diarrhea, unspecified; B96.20 Unspecified Escherichia coli [E. coli] as the cause of diseases classified elsewhere; K83.8 Other specified diseases of biliary tract; E86.0 Dehydration; N25.89 Other disorders resulting from impaired renal tubular function; M86.9 Osteomyelitis, unspecified; D32.0 Benign neoplasm of cerebral meninges; G40.209 Localization-related (focal) (partial) symptomatic epilepsy and epileptic syndromes with complex partial seizures, not intractable, without status epilepticus; N28.1 Cyst of kidney, acquired; Z85.828 Personal history of other malignant neoplasm of skin

== ENCOUNTER 2018-07-02 14:28 | Inpatient (IN) | payer MEDICAID ==
[2018-07-02 14:30] VITALS: PULSE 122
[2018-07-02 14:45] VITALS: BMI 14.6
[2018-07-02] MEDS ORDERED: Vancomycin 1gm in NS 250ml 1 GM/250 ML BAG IVPB STA (15:02)
[2018-07-02] MEDS ORDERED: Ciprofloxacin 400mg/200ml D5W 400 MG/200 ML BAG IVPB STA (15:02)
--- NOTE | 2018-07-02 15:06 | ED PDOC ---
Arrival/HPI - General Chief Complaint: Lower Extremity Problem/Injury Time Seen by Provider: 07/02/18 14:41 Historian: Patient - History of Present Illness Narrative History of Present Illness (Text): 07/02/18 15:02 A 62 year old female presents to the emergency department from her director of emergency nursing's office. The patient notes that her director of emergency nursing advised her to come into the emergency department for further evaluation of cellulitis to the right heel and ulceration of the 5th metatarsal of the left foot. The patient denies fevers, chills, headache, dizziness, chest pain, shortness of breath, dyspnea on exertion, cough, abdominal pain, nausea, vomiting, diarrhea, back pain, neck pain, urinary/bowel changes, or any other complaint. PMD: Dr. Galvez Plumber Pipe Fitting: Dr. Raymond Time/Duration: Prior to Arrival Symptom Onset: Sudden Symptom Course: Unchanged Activities at Onset: Rest, Light Context: Home Past Medical History - Provider Review Nursing Documentation Reviewed: Yes - Infectious Disease Hx of Infectious Diseases: None - Tetanus Immunization Tetanus Immunization: Unknown - Cardiac Hx Hypertension: Yes Hx Pacemaker: No - Pulmonary Hx Respiratory Disorders: No - Neurological Hx Neurological Disorder: Yes (headaches) Other/Comment: 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 - HEENT Hx HEENT Disorder: Yes Hx Cataracts: Yes (sx both eyes) - Renal Hx Renal Disorder: Yes Other/Comment: chronic kidney disease - Endocrine/Metabolic Hx Diabetes Mellitus Type 2: Yes Hx Hyperthyroidism: Yes - Hematological/Oncological Hx Cancer: No - Integumentary Hx Dermatological Disorder: Yes (bilateral diabetic foot ulcers) Other/Comment: left foot redness, broken blister to left great toe 2cm round, red and yellow slough noted, small black round wound to left 4th toe .3cm, left foot 2 small red wounds .3 cm, small wound to ball of left foot dry brown .5cm round, dry flakey skin to both feet,1.5cm x .5cm dry red wiound to ball of right foot, dry scabs to lower right leg (ALL FROM PREVIOUS TRIAGE NOT FROM 04/10/17) - Musculoskeletal/Rheumatological Hx Arthritis: Yes Hx Osteomyelitis: Yes Hx Unsteady Gait: Yes - Gastrointestinal Hx Gastroesophageal Reflux: Yes - Genitourinary/Gynecological Hx Genitourinary Disorders: No - Psychiatric Hx Emotional Abuse: No Hx Physical Abuse: No Hx Substance Use: No - Surgical History Hx Cataract Extraction: Yes Hx Cholecystectomy: Yes Hx Mastectomy: No Hx Orthopedic Surgery: Yes - Anesthesia Hx Anesthesia: Yes Hx Anesthesia Reactions: No Hx Malignant Hyperthermia: No - Suicidal Assessment Feels Threatened In Home Enviroment: No Family/Social History - Physician Review Nursing Documentation Reviewed: Yes Family/Social History: No Known Family HX Smoking Status: Never Smoked Hx Alcohol Use: No Hx Substance Use: No Hx Substance Use Treatment: No Allergies/Home Meds Allergies/Adverse Reactions: Allergies ceftriaxone Allergy (Verified 07/02/18 14:45) SHORTNESS OF BREATH clindamycin Allergy (Verified 07/02/18 14:45) RASH Penicillins Allergy (Verified 07/02/18 14:45) SHORTNESS OF BREATH sulfamethoxazole [From Bactrim] Allergy (Verified 07/02/18 14:45) RASH trimethoprim [From Bactrim] Allergy (Verified 07/02/18 14:45) RASH Home Medications: Home Meds Medication Instructions Recorded Confirmed Pantoprazole [Protonix EC Tab] 40 mg PO DAILY 04/10/17 07/02/18 SITagliptin [Januvia] 50 mg PO DAILY 04/10/17 07/02/18 Aspirin [Ecotrin] 81 mg PO DAILY 01/26/18 07/02/18 Carisoprodol [Soma] 350 mg PO Q8 01/26/18 07/02/18 Megestrol [Megace] 1 tab PO DAILY 01/26/18 07/02/18 Tab A Jenny 1 tab PO DAILY 01/26/18 07/02/18 Cyanocobalamin [Vitamin B12] 1 tab PO DAILY 07/02/18 07/02/18 Ferrous Gluconate [Fergon] 1 tab PO TID 07/02/18 07/02/18 Loperamide [Imodium] 1 cap PO BID 07/02/18 07/02/18 Patiromer Calcium Sorbitex 1 packet PO DAILY 07/02/18 07/02/18 [[place]] Sodium Bicarbonate Tab 650 mg PO QID 07/02/18 07/02/18 Review of Systems - Physician Review All systems were reviewed & negative as marked: Yes - Review of Systems Constitutional: absent: Fevers Respiratory: absent: SOB, Cough Cardiovascular: absent: Chest Pain, CRUZ Gastrointestinal: absent: Abdominal Pain, Stool Changes, Diarrhea, Nausea, Vomiting Genitourinary Female: absent: Urine Output Changes Musculoskeletal: Other (Right heel cellulitis. Left 5th metatarsal ulceration. ). absent: Back Pain, Neck Pain Skin: Other Neurological: absent: Headache, Dizziness Physical Exam Vital Signs Reviewed: Yes Vital Signs Temp Pulse Resp BP Pulse Ox 07/02/18 14:30 98.3 F 78 18 160/62 H 94 L Temperature: Afebrile Blood Pressure: Hypertensive Pulse: Regular Respiratory Rate: Normal Appearance: Positive for: Well-Appearing, Non-Toxic, Comfortable Pain Distress: None Mental Status: Positive for: Alert and Oriented X 3 - Systems Exam Head: Present: Atraumatic, Normocephalic Pupils: Present: PERRL Extroacular Muscles: Present: EOMI Conjunctiva: Present: Normal Mouth: Present: Moist Mucous Membranes Neck: Present: Normal Range of Motion Respiratory/Chest: Present: Clear to Auscultation, Good Air Exchange. No: Respiratory Distress, Accessory Muscle Use Cardiovascular: Present: Regular Rate and Rhythm, Normal S1, S2. No: Murmurs Abdomen: No: Tenderness, Distention, Peritoneal Signs Back: Present: Normal Inspection Upper Extremity: Present: Normal Inspection. No: Cyanosis, Edema Lower Extremity: Present: Other (Right heel cellulitits. Left 5th metatarsal ulceration. ) Neurological: Present: GCS=15, CN II-XII Intact, Speech Normal Skin: Present: Warm, Dry, Normal Color. No: Rashes Psychiatric: Present: Alert, Oriented x 3, Normal Insight, Normal Concentration Medical Decision Making ED Course and Treatment: 07/02/18 15:08 Impression: A 62 year old female presents to the emergency department with a complaint of right heel cellulitis and left 5th metatarsal ulceration. Plan: -- Blood Culture -- Vancomycin and Cipro -- Labs -- Reassess and disposition Prior Visits: Notes and results from previous visits were reviewed. Progress Notes: 07/02/18 18:34 cellulits failure of outpt - accepted by dr riggs. - Lab Interpretations I have reviewed the lab results: Yes - Scribe Statement The provider has reviewed the documentation as recorded by the Scribe Bee Mcmillan Provider Scribe Attestation: All medical record entries made by the Scribe were at my direction and person ally dictated by me. I have reviewed the chart and agree that the record accurately reflects my personal performance of the history, physical exam, medical decision making, and the department course for this patient. I have also personally directed, reviewed, and agree with the discharge instructions and disposition. Disposition/Present on Arrival - Present on Arrival Any Indicators Present on Arrival: No History of DVT/PE: No History of Uncontrolled Diabetes: No Urinary Catheter: No History of Decub. Ulcer: No History Surgical Site Infection Following: None - Disposition Have Diagnosis and Disposition been Completed?: Yes Diagnosis: Cellulitis, Diabetic foot ulcer Disposition: HOSPITALIZED Disposition Time: 02:30 Condition: STABLE
[2018-07-02 16:23] LABS: BASO # 0.01 {null, K/mm3} (0.0-2.0); BASO % 0.1 % (0.0-3.0); EOS # 0.1 (0.0-0.7); EOS % 0.7 % (1.5-5.0); HEMOGLOBIN 7.8 g/dL (12.0-16.0); LYMPH # 1.6 (1.2-3.4); LYMPH % 11.8 % (22.0-35.0); MEAN CELL VOLUME 96.2 fl (80.0-105.0); MEAN CORPUSCULAR HEMOGLOBIN 29.7 pg (25.0-35.0); MEAN CORPUSCULAR HGB CONC 30.8 g/dl (31.0-37.0); MEAN PLATELET VOLUME 9.6 fl (7.0-11.0); MONO # 1.7 (0.1-0.6); MONO % 12.9 % (1.0-6.0); RBC 2.63 {null, 10^6/uL} (3.5-6.1); RED CELL DISTRIBUTION WIDTH 14.5 % (11.5-14.5); WHITE BLOOD COUNT 13.4 {null, 10^3/uL} (4.5-11.0)
[2018-07-02 16:33] LABS: INR 1.3; PARTIAL THROMBOPLASTIN TIME 39.1 Seconds (26.9-38.3); PROTHROMBIN TIME 14.4 SECONDS (9.4-12.5)
[2018-07-02 16:34] LABS: ALBUMIN 4.3 g/dL (3.0-4.8); CALCIUM 9.9 mg/dL (8.4-10.5)
--- NOTE | 2018-07-02 17:11 | CP.PCM.HP ---
<Александр Vaz - Last Filed: 07/02/18 18:39> History of Present Illness - History of Present Illness History of Present Illness: Александр Vaz, PGY1 Medicine H&P for Dr. Haque cc: "sent from multimedia engineer for evaluation of R-heel cellulitis and Left 5th metatarsal ulceration" Patient is a 62 year old female with PMHx DM2 (last A1c 6.8), HTN, CKD Stage IV, Osteoarthritis, Anemia of Chronic Kidney Disease, Seizures, Hearing Loss, and Osteomyelitis presents to [facility] as advised by her multimedia engineer, Dr. Raymond, for evaluation of R-heel cellulitis and left 5th metatarsal ulceration. was present during time of interview. Patient currently endorses chills and soreness at the right foot. She denies any recent trauma to the feet. She ambulates via walker and has no issues with her ADLs. Otherwise, she denies fevers, chest pain, shortness of breath, nausea, vomiting, diarrhea, headache, weight changes, bowel/bladder changes. Of note, patient has a previous admission on 01/2018 for sepsis 2/2 cellulitis and osteomyelitis in which she was found to be +MRSA on wound cultures and treated with vancomycin. A full 12 point ROS was conducted and unremarkable except as stated above. PMD: Dr. Galvez PMHx: DM2 (last A1c 6.8), HTN, CKD Stage IV, Osteoarthritis, Anemia of Chronic Kidney Disease, Seizures, Hearing Loss, Osteomyelitis PSHx: cholecystectomy, b/l cataracts, c/s, edna in R leg, bilateral toe amputations Allergies: ceftriaxone, clindamycin, PCN, bactrim (rashes) Meds: see MAR FHx: father had COPD and mother had CHF SocialHx: denies current or prior tobacco, alcohol, or drug use. She lives with her and is normally ambulatory and independent with ADLs. She has a walker for ambulation. Present on Admission - Present on Admission Any Indicators Present on Admission: No Review of Systems - Review of Systems All systems: reviewed and no additional remarkable complaints except (as per HPI) Past Patient History - Infectious Disease Hx of Infectious Diseases: None - Tetanus Immunizations Tetanus Immunization: Unknown - Past Medical History & Family History Past Medical History?: Yes - Past Social History Smoking Status: Never Smoked - CARDIAC Hx Hypertension: Yes Hx Pacemaker: No - PULMONARY Hx Respiratory Disorders: No - NEUROLOGICAL Hx Neurological Disorder: Yes (headaches) Other/Comment: 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 - HEENT Hx HEENT Problems: Yes Hx Cataracts: Yes (sx both eyes) - RENAL Hx Chronic Kidney Disease: Yes Other/Comment: chronic kidney disease - ENDOCRINE/METABOLIC Hx Diabetes Mellitus Type 2: Yes Hx Hyperthyroidism: Yes - HEMATOLOGICAL/ONCOLOGICAL Hx Cancer: No - INTEGUMENTARY Hx Dermatological Problems: Yes (bilateral diabetic foot ulcers) Other/Comment: left foot redness, broken blister to left great toe 2cm round, red and yellow slough noted, small black round wound to left 4th toe .3cm, left foot 2 small red wounds .3 cm, small wound to ball of left foot dry brown .5cm round, dry flakey skin to both feet,1.5cm x .5cm dry red wiound to ball of right foot, dry scabs to lower right leg (ALL FROM PREVIOUS TRIAGE NOT FROM 04/10/17) - MUSCULOSKELETAL/RHEUMATOLOGICAL Hx Arthritis: Yes Hx Osteomyelitis: Yes Hx Unsteady Gait: Yes - GASTROINTESTINAL Hx Gastroesophageal Reflux: Yes - GENITOURINARY/GYNECOLOGICAL Hx Genitourinary Disorders: No - PSYCHIATRIC Hx Emotional Abuse: No Hx Physical Abuse: No Hx Substance Use: No - SURGICAL HISTORY Hx Cataract Extraction: Yes Hx Cholecystectomy: Yes Hx Mastectomy: No Hx Orthopedic Surgery: Yes - ANESTHESIA Hx Anesthesia: Yes Hx Anesthesia Reactions: No Hx Malignant Hyperthermia: No Meds Allergies/Adverse Reactions: Allergies Allergy/AdvReac Type Severity Reaction Status Date / Time ceftriaxone Allergy SHORTNESS Verified 07/02/18 19:10 OF BREATH clindamycin Allergy RASH Verified 07/02/18 19:10 Penicillins Allergy SHORTNESS Verified 07/02/18 19:10 OF BREATH sulfamethoxazole Allergy RASH Verified 07/02/18 19:10 [From Bactrim] trimethoprim [From Bactrim] Allergy RASH Verified 07/02/18 19:10 Physical Exam - Constitutional Appears: Non-toxic, No Acute Distress - Head Exam Head Exam: ATRAUMATIC, NORMAL INSPECTION, NORMOCEPHALIC - Eye Exam Eye Exam: EOMI, Normal appearance Pupil Exam: NORMAL ACCOMODATION - ENT Exam ENT Exam: Mucous Membranes Dry - Neck Exam Neck exam: Positive for: Normal Inspection - Respiratory Exam Respiratory Exam: Clear to Auscultation Bilateral, NORMAL BREATHING PATTERN. absent: Accessory Muscle Use, Chest Wall Tenderness, Rales, Rhonchi, Wheezes, Stridor - Cardiovascular Exam Cardiovascular Exam: RRR, +S1, +S2 - GI/Abdominal Exam GI & Abdominal Exam: Normal Bowel Sounds, Soft. absent: Firm, Guarding, Rebound, Rigid, Tenderness Additional comments: No suprapubic tenderness. - Extremities Exam Extremities exam: Positive for: pedal pulses present. Negative for: tenderness Additional comments: Cellulitis/Erythema noted at the lateral aspect of the right heel. No evidence of fluctuation or pus drainage. Left foot is wrapped via dressing by podiatry. No evidence of drainage or bleeding. Distal pulses are intact. Evidence of multiple toe amputations. Skin is dry and warm. - Neurological Exam Neurological exam: Alert, CN II-XII Intact, Oriented x3 - Psychiatric Exam Psychiatric exam: Normal Affect, Normal Mood - Skin Skin Exam: Dry, Intact, Normal Color, Warm Results - Vital Signs Recent Vital Signs: Last Vital Signs Temp 98.3 F 07/02/18 14:30 Pulse 78 07/02/18 14:30 Resp 18 07/02/18 14:30 BP 160/62 H 07/02/18 14:30 Pulse Ox 94 L 07/02/18 14:30 - Labs Result Diagrams: 07/02/18 16:15 07/02/18 16:15 Labs: Laboratory Results - last 24 hr 07/02/18 07/02/18 07/02/18 16:15 16:15 16:15 WBC 13.4 H D RBC 2.63 L Hgb 7.8 L Hct 25.3 L MCV 96.2 MCH 29.7 MCHC 30.8 L RDW 14.5 Plt Count 360 MPV 9.6 Neut % (Auto) 74.5 H Lymph % (Auto) 11.8 L Hardeman % (Auto) 12.9 H Eos % (Auto) 0.7 L Baso % (Auto) 0.1 Lymph # (Auto) 1.6 Hardeman # (Auto) 1.7 H Eos # (Auto) 0.1 Baso # (Auto) 0.01 Absolute Neuts (auto) 9.96 H PT 14.4 H INR 1.30 APTT 39.1 H Sodium 141 Potassium 5.5 H Chloride 113 H Carbon Dioxide 15 L Anion Gap 19 BUN 34 H Creatinine 2.0 H Est GFR ( Amer) 31 Est GFR (Non-Af Amer) 25 Random Glucose 93 Calcium 9.9 Total Bilirubin 0.5 AST 44 H D ALT 30 Alkaline Phosphatase 160 H Total Protein 8.6 H Albumin 4.3 Globulin 4.3 Albumin/Globulin Ratio 1.0 L Assessment & Plan - Assessment and Plan (Free Text) Assessment: Patient is a 62 year old female with PMHx DM2 (last A1c 6.8), HTN, CKD Stage IV, Osteoarthritis, Anemia of Chronic Kidney Disease, Seizures, Hearing Loss, and Osteomyelitis presents to [facility] as advised by her multimedia engineer, Dr. Raymond, for evaluation of R-heel cellulitis and left 5th metatarsal ulceration. Patient will be admitted for Cellulitis - failed outpatient treatment. Plan: Right Heel Cellulitis with Left 5th Metatarsal Ulceration - failed outpatient treatment - given vanco 1g (renal dose) and ciprofloxacin 400mg in the ED - f/u blood cx - Bilateral lower ext foot xrays to rule out osteomyelitis - ID placed on consult (Dr. Nair). Follow up recs. - ESR - CRP - Podiatry on consult (Dr. Raymond) FREDY on CKD Stage IV - BUN/Cr 34/2.0 on admission (baseline Cr 1.7); appears clinically dry on exam - IVF NS @ 75 cc/hr - monitor renal function - c/w sodium bicarb home med Hyperkalemia - K 5.5 on admission (slightly hemolyzed) - will repeat potassium level - monitor K - Hold home med Valtassa for now Anemia of chronic kidney disease - Hgb 7.8 (baseline 8-9); monitor at this time - Ferritin, vitamin b12, and folate ordered - Ferritin significantly elevated in the past (1170), likely chronic disease - c/w home med ferrous gluconate, vitamin b12, and sodium bicarb DM II - ISS - Accuchecks HTN - c/w home med toprol XL - c/w home med aspirin 81mg daily GERD - c/w home med protonix Seizure - c/w home med keppra ppx: - hep sc - ptx Diet: CCD Dispo: Monitor patient on remote telemetry. Will follow up ID recommendations for antibiotics as patient failed outpatient treatment Case was discussed and reviewed with Attending Physician, Dr. Haque <Luna Haque - Last Filed: 07/03/18 07:14> Results - Vital Signs Recent Vital Signs: Last Vital Signs Temp 102.1 F H 07/03/18 03:11 Pulse 132 H 07/03/18 03:11 Resp 20 07/03/18 03:11 BP 124/50 L 07/03/18 03:11 Pulse Ox 93 L 07/03/18 03:11 - Labs Result Diagrams: 07/03/18 06:25 07/02/18 18:30 Labs: Laboratory Results - last 24 hr 07/02/18 07/02/18 07/02/18 16:15 16:15 16:15 WBC 13.4 H D RBC 2.63 L Hgb 7.8 L Hct 25.3 L MCV 96.2 MCH 29.7 MCHC 30.8 L RDW 14.5 Plt Count 360 MPV 9.6 Neut % (Auto) 74.5 H Lymph % (Auto) 11.8 L Hardeman % (Auto) 12.9 H Eos % (Auto) 0.7 L Baso % (Auto) 0.1 Lymph # (Auto) 1.6 Hardeman # (Auto) 1.7 H Eos # (Auto) 0.1 Baso # (Auto) 0.01 Absolute Neuts (auto) 9.96 H ESR PT 14.4 H INR 1.30 APTT 39.1 H pO2 VBG pH VBG pCO2 VBG HCO3 VBG Total CO2 VBG O2 Sat (Calc) VBG Base Excess VBG Potassium Glucose Lactate FiO2 Crit Value Called To Crit Value Called By Blood Gas Notified Time Sodium 141 Potassium 5.5 H Chloride 113 H Carbon Dioxide 15 L Anion Gap 19 BUN 34 H Creatinine 2.0 H Est GFR ( Amer) 31 Est GFR (Non-Af Amer) 25 POC Glucose (mg/dL) Random Glucose 93 Calcium 9.9 Total Bilirubin 0.5 AST 44 H D ALT 30 Alkaline Phosphatase 160 H Total Protein 8.6 H Albumin 4.3 Globulin 4.3 Albumin/Globulin Ratio 1.0 L Venous Blood Potassium Urine Color Urine Appearance Urine pH Ur Specific [place] Urine Protein Urine Glucose (UA) Urine Ketones Urine Blood Urine Nitrate Urine Bilirubin Urine Urobilinogen Ur Leukocyte Esterase Urine RBC Urine WBC Ur Epithelial Cells 07/02/18 07/02/18 07/02/18 18:30 18:30 22:15 WBC RBC Hgb Hct MCV MCH MCHC RDW Plt Count MPV Neut % (Auto) Lymph % (Auto) Hardeman % (Auto) Eos % (Auto) Baso % (Auto) Lymph # (Auto) Hardeman # (Auto) Eos # (Auto) Baso # (Auto) Absolute Neuts (auto) ESR 148 H PT INR APTT pO2 VBG pH VBG pCO2 VBG HCO3 VBG Total CO2 VBG O2 Sat (Calc) VBG Base Excess VBG Potassium Glucose Lactate FiO2 Crit Value Called To Crit Value Called By Blood Gas Notified Time Sodium 143 Potassium 5.5 H Chloride 113 H Carbon Dioxide 17 L Anion Gap 19 BUN 34 H Creatinine 2.0 H Est GFR ( Amer) 31 Est GFR (Non-Af Amer) 25 POC Glucose (mg/dL) 191 H Random Glucose 67 L Calcium 10.0 Total Bilirubin AST ALT Alkaline Phosphatase Total Protein Albumin Globulin Albumin/Globulin Ratio Venous Blood Potassium Urine Color Urine Appearance Urine pH Ur Specific [place] Urine Protein Urine Glucose (UA) Urine Ketones Urine Blood Urine Nitrate Urine Bilirubin Urine Urobilinogen Ur Leukocyte Esterase Urine RBC Urine WBC Ur Epithelial Cells 07/03/18 07/03/18 07/03/18 00:05 01:18 01:49 WBC RBC Hgb Hct MCV MCH MCHC RDW Plt Count MPV Neut % (Auto) Lymph % (Auto) Hardeman % (Auto) Eos % (Auto) Baso % (Auto) Lymph # (Auto) Hardeman # (Auto) Eos # (Auto) Baso # (Auto) Absolute Neuts (auto) ESR PT INR APTT pO2 86 H VBG pH 7.39 VBG pCO2 23.0 L VBG HCO3 13.9 L VBG Total CO2 14.6 L VBG O2 Sat (Calc) 97.8 H VBG Base Excess -9.0 L VBG Potassium 4.4 Glucose 217 H Lactate 3.3 H FiO2 21.0 Crit Value Called To Tamica villavicencio Crit Value Called By Tanvi Blood Gas Notified Time 200 Sodium 142.0 Potassium Chloride 110.0 H Carbon Dioxide Anion Gap BUN Creatinine Est GFR ( Amer) Est GFR (Non-Af Amer) POC Glucose (mg/dL) 236 H Random Glucose Calcium Total Bilirubin AST ALT Alkaline Phosphatase Total Protein Albumin Globulin Albumin/Globulin Ratio Venous Blood Potassium 4.4 Urine Color Light yellow Urine Appearance Clear Urine pH 7.0 Ur Specific [place] 1.010 Urine Protein Trace H Urine Glucose (UA) Negative Urine Ketones Negative Urine Blood Negative Urine Nitrate Negative Urine Bilirubin Negative Urine Urobilinogen 0.2 Ur Leukocyte Esterase Trace H Urine RBC None Urine WBC 1 - 3 Ur Epithelial Cells 3 - 4 07/03/18 07/03/18 07/03/18 04:41 06:25 06:25 WBC 8.7 D RBC 2.38 L Hgb 7.0 L Hct 22.4 L MCV 94.1 MCH 29.4 MCHC 31.3 RDW 14.2 Plt Count 310 MPV 9.5 Neut % (Auto) Lymph % (Auto) Hardeman % (Auto) Eos % (Auto) Baso % (Auto) Lymph # (Auto) Hardeman # (Auto) Eos # (Auto) Baso # (Auto) Absolute Neuts (auto) ESR PT INR APTT pO2 94 H VBG pH 7.35 VBG pCO2 24.0 L VBG HCO3 13.2 L VBG Total CO2 13.9 L VBG O2 Sat (Calc) 98.0 H VBG Base Excess -10.5 L VBG Potassium 4.1 Glucose 172 H Lactate 3.1 H FiO2 21.0 Crit Value Called To Ginger herrera Crit Value Called By Tanvi Blood Gas Notified Time 645 Sodium 143.0 Potassium Chloride 112.0 H Carbon Dioxide Anion Gap BUN Creatinine Est GFR ( Amer) Est GFR (Non-Af Amer) POC Glucose (mg/dL) 474 H* Random Glucose Calcium Total Bilirubin AST ALT Alkaline Phosphatase Total Protein Albumin Globulin Albumin/Globulin Ratio Venous Blood Potassium 4.1 Urine Color Urine Appearance Urine pH Ur Specific [place] Urine Protein Urine Glucose (UA) Urine Ketones Urine Blood Urine Nitrate Urine Bilirubin Urine Urobilinogen Ur Leukocyte Esterase Urine RBC Urine WBC Ur Epithelial Cells Attending/Attestation - Attestation I have personally seen and examined this patient.: Yes I have fully participated in the care of the patient.: Yes I have reviewed all pertinent clinical information: Yes Notes (Text): 07/02/18 62 year old female with past medical history of diabetes, hypertension, CKD, osteomyelitis and seizures who was referred by her multimedia engineer for right heel cellulitis and left 5th metatarsal ulceration. She was recently prescribed outpatient antibiotics. Also found to have anemia, acute on chronic renal dis ease and hyperkalemia (slightly hemolyzed). Will obtain xray of feet. Start on iv antibiotics. ID/podiatry evaluations are requested. Follow up on cultures. Continue with ivf. Repeat bmp to check potassium. Anemia is likely multifactorial, anemia of chronic renal disease. Will check anemia workup and monitor closely. Luna Haque MD Hospitalist.
[2018-07-02] MEDS ORDERED: Sodium Chloride 0.9% 1,000 ML IV SCH (18:00)
[2018-07-02 18:51] LABS: BLOOD UREA NITROGEN 34 mg/dL (7-21); GFR NON-AFRICAN AMERICAN 25
--- NOTE | 2018-07-02 21:54 | CP.PCM.PN ---
Subjective - Date & Time of Evaluation Date of Evaluation: 07/02/18 Time of Evaluation: 21:48 - Subjective Subjective: # 22 angiocath inserted in left distal arm. Patient has no complaints now. VSS. Objective - Vital Signs/Intake and Output Vital Signs (last 24 hours): Temp Pulse Resp BP Pulse Ox 98.3 F 95 H 18 124/65 99 07/02/18 14:30 07/02/18 18:25 07/02/18 18:25 07/02/18 18:25 07/02/18 18:25 - Medications Medications: Current Medications Aspirin (Ecotrin) 81 mg PO DAILY [facility] Cyanocobalamin (Vitamin B12 1000 Mcg Tab) 500 mcg PO DAILY [facility] Ferrous Gluconate (Fergon) 324 mg PO TID [facility] Heparin Sodium (Porcine) (Heparin) 5,000 units SC Q8 [facility]; Protocol Last Admin: 07/02/18 21:36 Dose: 5,000 units Sodium Chloride (Sodium Chloride 0.9%) 1,000 mls @ 75 mls/hr IV .[id number] [facility] Last Admin: 07/02/18 18:05 Dose: 75 mls/hr Insulin Human Lispro (Humalog Low) 0 units SC ACHS [facility]; Protocol Levetiracetam (Keppra) 500 mg PO BID [facility] Last Admin: 07/02/18 21:36 Dose: 500 mg Megestrol Acetate (Megace) 40 mg PO DAILY [facility] Metoprolol Succinate (Toprol Xl) 50 mg PO DAILY [facility] Pantoprazole Sodium (Protonix Ec Tab) 40 mg PO DAILY [facility] Sodium Bicarbonate (Sodium Bicarbonate Tab) 650 mg PO QID [facility] Last Admin: 07/02/18 21:36 Dose: 650 mg - Labs Labs: 07/02/18 16:15 07/02/18 18:30 PT 14.4 SECONDS (9.4-12.5) H 07/02/18 16:15 INR 1.30 07/02/18 16:15 APTT 39.1 Seconds (26.9-38.3) H 07/02/18 16:15
[2018-07-02] MEDS: MEROPENEM 500 MG in NS 500 MG/50 ML BAG IVPB SCH (22:20)
[2018-07-02] MEDS: Linezolid 600 mg in D5W 300 ml 600 MG/300 ML BAG IVPB SCH (22:22)
[2018-07-02] MEDS: Insulin Lispro (humaLOG) LOW Coverage SC SCH (22:23)
[2018-07-02] MEDS ORDERED: Pneumococcal 23-Valent Vaccine IM ONE (22:49)
[2018-07-03 00:24] LABS: URINE BILIRUBIN NEGATIVE (NEGATIVE); URINE BLOOD NEGATIVE (NEGATIVE); URINE GLUCOSE (UA) NEGATIVE (NEGATIVE); URINE LEUKOCYTE ESTERASE TRACE Leu/uL (NEGATIVE); URINE PROTEIN TRACE mg/dL (<30 mg/dL); URINE UROBILINOGEN 0.2 E.U./dL (<1 E.U./dL)
[2018-07-03 00:26] LABS: URINE APPEARANCE CLEAR (CLEAR); URINE COLOR LIGHT YELLOW (YELLOW)
[2018-07-03] MEDS ORDERED: Dextrose 50% SYRINGE Inj (50 ml) IV PRN (01:57)
[2018-07-03] MEDS ORDERED: Dextrose 50% SYRINGE Inj (50 ml) IVP ONE (01:57)
[2018-07-03] MEDS ORDERED: Insulin Regular 1 UNITS/0.01 ML ML IV ONE ×2 (01:57→04:00)
[2018-07-03] MEDS ORDERED: Sodium Chloride 0.9% 500 ML IV STA ×2 (02:00→02:05)
[2018-07-03 02:01] LABS: VENOUS BLOOD GAS PO2 86 mm/Hg (30-55); VENOUS BLOOD PH 7.39 (7.32-7.43)
[2018-07-03] MEDS ORDERED: Calcium Gluconate in NS 1 GM/50 ML BAG IV ONE (02:15)
--- NOTE | 2018-07-03 03:06 | CP.PCM.PN ---
<Jose Manuel Salmeron - Last Filed: 07/03/18 03:17> Subjective - Date & Time of Evaluation Date of Evaluation: 07/03/18 Time of Evaluation: 01:10 - Subjective Subjective: Jose Manuel Salmeron DO progress note S: 62 y/o female admitted to med/surg for right foot cellulitis. She had a temp of 103F and vomited bilious fluid x3. She is zyvox, meropenem and IVF 200cc/hr O: VSS: BP 155/66 HR 145 Temp 103 (rectal) RR 22 Sat 92% on RA Gen: cachectic female, shivering, in NAD Heart: S1,S2 no rub, gallop Lung: CTA B/L Abd: soft, non tender, no masses Ext: dressing on right foot. pulses palpable, no edema/cyanosis A: 62 y/o female with tachycardia, fever, tachypnea, hyperkalemia 5.5. Likely in sepsis P: -EKG: NSR, no ST-T wave changes -CXR: NAD -UA/ UCx -Blood Cx -VBG: lactate 3.3 -IVF NS 500cc bolus -continue IV abx -Ca gluconate, D50, 10u glucose given for hyperkalemia -CMP, VBG in am -Acetaminophen RC for fever -transfer to tele -reassess IN 3-6 hours Case discussed with attending Dr Santa Salmeron, Objective - Vital Signs/Intake and Output Vital Signs (last 24 hours): Temp Pulse Resp BP Pulse Ox 102.5 F H 148 H 20 143/60 98 07/03/18 01:59 07/03/18 01:17 07/03/18 01:17 07/03/18 01:17 07/03/18 01:17 - Medications Medications: Current Medications Acetaminophen (Tylenol 650 Mg Supp) 650 mg RC Q4H PRN PRN Reason: Fever >100.4 F Aspirin (Ecotrin) 81 mg PO DAILY [facility] Cyanocobalamin (Vitamin B12 1000 Mcg Tab) 500 mcg PO DAILY [facility] Dextrose (Dextrose 50% Inj) 0 ml IV STAT PRN; Protocol PRN Reason: Hypoglycemia Protocol Ferrous Gluconate (Fergon) 324 mg PO TID [facility] Heparin Sodium (Porcine) (Heparin) 5,000 units SC Q8 [facility]; Protocol Last Admin: 07/02/18 21:36 Dose: 5,000 units Sodium Chloride (Sodium Chloride 0.9%) 1,000 mls @ 75 mls/hr IV .[id number] [facility] Last Admin: 07/02/18 18:05 Dose: 75 mls/hr Meropenem/Sodium Chloride (Merrem Iv 500 Mg/Ns 50 Ml) 500 mg in 50 mls @ 100 mls/hr IVPB Q12 [facility]; Protocol Stop: 07/11/18 22:01 Last Admin: 07/02/18 22:20 Dose: 100 mls/hr Linezolid (Zyvox 600mg/300ml D5w) 600 mg in 300 mls @ 200 mls/hr IVPB Q12 [facility]; Protocol Stop: 07/11/18 22:01 Last Admin: 07/02/18 22:22 Dose: 200 mls/hr Dextrose (Dextrose 5% In Water 1000 Ml) 1,000 mls @ 0 mls/hr IV .Q0M PRN; Protocol PRN Reason: Hypoglycemia Protocol Sodium Chloride (Sodium Chloride 0.9%) 500 mls @ 500 mls/hr IV .Q1H [facility] Stop: 07/03/18 03:04 Last Admin: 07/03/18 02:18 Dose: 500 mls/hr Calcium Gluconate (Calcium Gluconate 1g/50ml Ns) 1 gm in 50 mls @ 50 mls/hr IV ONCE ONE Stop: 07/03/18 03:14 Insulin Human Lispro (Humalog Low) 0 units SC ACHS [facility]; Protocol Last Admin: 07/02/18 22:23 Dose: Not Given Levetiracetam (Keppra) 500 mg PO BID [facility] Last Admin: 07/02/18 21:36 Dose: 500 mg Megestrol Acetate (Megace) 40 mg PO DAILY [facility] Metoprolol Succinate (Toprol Xl) 50 mg PO DAILY [facility] Ondansetron HCl (Zofran Inj) 4 mg IVP Q4H PRN PRN Reason: Nausea/Vomiting Last Admin: 07/03/18 02:21 Dose: 4 mg Pantoprazole Sodium (Protonix Ec Tab) 40 mg PO DAILY [facility] Sodium Bicarbonate (Sodium Bicarbonate Tab) 650 mg PO QID [facility] Last Admin: 07/02/18 22:23 Dose: Not Given - Labs Labs: 07/02/18 16:15 07/02/18 18:30 PT 14.4 SECONDS (9.4-12.5) H 07/02/18 16:15 INR 1.30 07/02/18 16:15 APTT 39.1 Seconds (26.9-38.3) H 07/02/18 16:15 <Katt Pratt - Last Filed: 07/03/18 07:50> Objective - Vital Signs/Intake and Output Vital Signs (last 24 hours): Temp Pulse Resp BP Pulse Ox 102.1 F H 132 H 20 124/50 L 93 L 07/03/18 03:11 07/03/18 03:11 07/03/18 03:11 07/03/18 03:11 07/03/18 03:11 Intake and Output: 07/03/18 07/03/18 06:59 18:59 Intake Total 0 Balance 0 - Medications Medications: Current Medications Acetaminophen (Tylenol 650 Mg Supp) 650 mg RC Q4H PRN PRN Reason: Fever >100.4 F Aspirin (Ecotrin) 81 mg PO DAILY [facility] Cyanocobalamin (Vitamin B12 1000 Mcg Tab) 500 mcg PO DAILY [facility] Dextrose (Dextrose 50% Inj) 0 ml IV STAT PRN; Protocol PRN Reason: Hypoglycemia Protocol Ferrous Gluconate (Fergon) 324 mg PO TID [facility] Heparin Sodium (Porcine) (Heparin) 5,000 units SC Q8 [facility]; Protocol Last Admin: 07/03/18 06:11 Dose: 5,000 units Meropenem/Sodium Chloride (Merrem Iv 500 Mg/Ns 50 Ml) 500 mg in 50 mls @ 100 mls/hr IVPB Q12 [facility]; Protocol Stop: 07/11/18 22:01 Last Admin: 07/02/18 22:20 Dose: 100 mls/hr Linezolid (Zyvox 600mg/300ml D5w) 600 mg in 300 mls @ 200 mls/hr IVPB Q12 [facility]; Protocol Stop: 07/11/18 22:01 Last Admin: 07/02/18 22:22 Dose: 200 mls/hr Dextrose (Dextrose 5% In Water 1000 Ml) 1,000 mls @ 0 mls/hr IV .Q0M PRN; Protocol PRN Reason: Hypoglycemia Protocol Sodium Chloride (Sodium Chloride 0.9%) 1,000 mls @ 125 mls/hr IV .Q8H [facility] Insulin Human Lispro (Humalog Low) 0 units SC ACHS [facility]; Protocol Last Admin: 07/02/18 22:23 Dose: Not Given Levetiracetam (Keppra) 500 mg PO BID [facility] Last Admin: 07/02/18 21:36 Dose: 500 mg Megestrol Acetate (Megace) 40 mg PO DAILY [facility] Metoprolol Succinate (Toprol Xl) 50 mg PO DAILY [facility] Ondansetron HCl (Zofran Inj) 4 mg IVP Q4H PRN PRN Reason: Nausea/Vomiting Last Admin: 07/03/18 02:21 Dose: 4 mg Pantoprazole Sodium (Protonix Ec Tab) 40 mg PO DAILY [facility] Sodium Bicarbonate (Sodium Bicarbonate Tab) 650 mg PO QID [facility] Last Admin: 07/02/18 22:23 Dose: Not Given - Labs Labs: 07/03/18 06:25 07/03/18 06:25 PT 14.4 SECONDS (9.4-12.5) H 07/02/18 16:15 INR 1.30 07/02/18 16:15 APTT 39.1 Seconds (26.9-38.3) H 07/02/18 16:15 Attending/Attestation - Attestation I have personally seen and examined this patient.: Yes I have fully participated in the care of the patient.: Yes I have reviewed all pertinent clinical information, including history, physical exam and plan: Yes Notes (Text): 07/03/18 07:48 Pt seen with the resident by the bedside. Case discussed. Agree with documentation ,assessment and orders placed.
[2018-07-03 06:41] LABS: MEAN CELL VOLUME 94.1 fl (80.0-105.0); MEAN CORPUSCULAR HEMOGLOBIN 29.4 pg (25.0-35.0); MEAN CORPUSCULAR HGB CONC 31.3 g/dl (31.0-37.0); MEAN PLATELET VOLUME 9.5 fl (7.0-11.0); RBC 2.38 {null, 10^6/uL} (3.5-6.1); RED CELL DISTRIBUTION WIDTH 14.2 % (11.5-14.5); WHITE BLOOD COUNT 8.7 {null, 10^3/uL} (4.5-11.0)
--- NOTE | 2018-07-03 06:41 | PCM.SEPTIC ---
Sepsis Progress Note - Reassessment Type Date of Evaluation: 07/03/18 Time of Evaluation: 06:38 Reassessment Type: Non-invasive reassessment - Non Invasive Reassessment Were the most recent vital sign reviewed: Yes Vital Sign (Latest): Temp Pulse Resp BP Pulse Ox 102.1 F H 132 H 20 124/50 L 93 L 07/03/18 03:11 07/03/18 03:11 07/03/18 03:11 07/03/18 03:11 07/03/18 03:11 Cardiovascular: Yes: Regular Rate, Rhythm, Tachycardia. No: Edema, Gallop Respiratory: Yes: Normal Breath Sounds. No: Rales, Rhonchi Capillary Refill: Normal (Less than 2 sec) Skin: Normal Color, Warm, Dry - Invasive Reassessment (complete 2 of 4) Was a Central Venous Pressure Measurement obtained within 6 Hours after the presentation of septic shock: No Was a central venous oxygen measurement obtained within 6 hours after the presentation of septic shock: No Was a bedside cardiovascular ultrasound performed within 6 hours after the presentation of septic shock: No Was a passive leg raise performed or was a fluid challenge performed within 6 hrs of the initial fluid bolus: No Passive Leg Raise Result: Negative Fluid Challenge performed: No
[2018-07-03 06:44] LABS: VENOUS BLOOD GAS BASE EXCESS -10.5 mmol/L (0.0-2.0); VENOUS BLOOD GAS PO2 94 mm/Hg (30-55); VENOUS BLOOD PH 7.35 (7.32-7.43)
[2018-07-03 07:19] LABS: ALBUMIN 3.7 g/dL (3.0-4.8); CALCIUM 9.8 mg/dL (8.4-10.5)
[2018-07-03 07:30] LABS: TROPONIN I 0.05 ng/mL
[2018-07-03] MEDS: Sodium Chloride 0.9% 1,000 ML IV SCH ×3 (07:58→23:42)
[2018-07-03] MEDS: Insulin Lispro (humaLOG) LOW Coverage SC SCH ×4 (07:59→22:00)
--- NOTE | 2018-07-03 08:51 | CP.PCM.PN ---
<Александр Vaz - Last Filed: 07/03/18 15:21> Subjective - Date & Time of Evaluation Date of Evaluation: 07/03/18 Time of Evaluation: 08:00 - Subjective Subjective: Александр Vaz PGY1 Medicine Progress Note for Dr. Haque Patient seen and examined at bedside this morning. Overnight, patient had a Tmax 103. She was also tachycardic with HR 140s. VBG was also done and showed elevated lactate at 3.3. Patient was given 500cc bolus overnight and met criteria for severe sepsis. This morning, patient still complaints of fever, chills, left foot soreness. Otherwise, denies cp, headache, n/v/d, bowel/bladder changes. A full 12 point ROS was conducted and unremarkable except as stated above. Objective - Vital Signs/Intake and Output Vital Signs (last 24 hours): Temp Pulse Resp BP Pulse Ox 99.5 F 131 H 18 103/60 93 L 07/03/18 06:00 07/03/18 06:00 07/03/18 06:00 07/03/18 06:00 07/03/18 03:11 Intake and Output: 07/03/18 07/03/18 06:59 18:59 Intake Total 0 350 Balance 0 350 - Medications Medications: Current Medications Acetaminophen (Tylenol 650 Mg Supp) 650 mg RC Q4H PRN PRN Reason: Fever >100.4 F Aspirin (Ecotrin) 81 mg PO DAILY [facility] Cyanocobalamin (Vitamin B12 1000 Mcg Tab) 500 mcg PO DAILY [facility] Dextrose (Dextrose 50% Inj) 0 ml IV STAT PRN; Protocol PRN Reason: Hypoglycemia Protocol Ferrous Gluconate (Fergon) 324 mg PO TID [facility] Heparin Sodium (Porcine) (Heparin) 5,000 units SC Q8 [facility]; Protocol Last Admin: 07/03/18 06:11 Dose: 5,000 units Meropenem/Sodium Chloride (Merrem Iv 500 Mg/Ns 50 Ml) 500 mg in 50 mls @ 100 mls/hr IVPB Q12 [facility]; Protocol Stop: 07/11/18 22:01 Last Admin: 07/02/18 22:20 Dose: 100 mls/hr Linezolid (Zyvox 600mg/300ml D5w) 600 mg in 300 mls @ 200 mls/hr IVPB Q12 [facility]; Protocol Stop: 07/11/18 22:01 Last Admin: 07/02/18 22:22 Dose: 200 mls/hr Dextrose (Dextrose 5% In Water 1000 Ml) 1,000 mls @ 0 mls/hr IV .Q0M PRN; Protocol PRN Reason: Hypoglycemia Protocol Sodium Chloride (Sodium Chloride 0.9%) 1,000 mls @ 125 mls/hr IV .Q8H [facility] Last Admin: 07/03/18 07:58 Dose: 125 mls/hr Insulin Human Lispro (Humalog Low) 0 units SC ACHS [facility]; Protocol Last Admin: 07/03/18 07:59 Dose: Not Given Levetiracetam (Keppra) 500 mg PO BID [facility] Last Admin: 07/02/18 21:36 Dose: 500 mg Megestrol Acetate (Megace) 40 mg PO DAILY [facility] Metoprolol Succinate (Toprol Xl) 50 mg PO DAILY [facility] Ondansetron HCl (Zofran Inj) 4 mg IVP Q4H PRN PRN Reason: Nausea/Vomiting Last Admin: 07/03/18 02:21 Dose: 4 mg Pantoprazole Sodium (Protonix Ec Tab) 40 mg PO DAILY [facility] Sodium Bicarbonate (Sodium Bicarbonate Tab) 650 mg PO QID [facility] Last Admin: 07/02/18 22:23 Dose: Not Given - Labs Labs: 07/03/18 06:25 07/03/18 06:25 PT 14.4 SECONDS (9.4-12.5) H 07/02/18 16:15 INR 1.30 07/02/18 16:15 APTT 39.1 Seconds (26.9-38.3) H 07/02/18 16:15 - Constitutional Appears: Non-toxic, No Acute Distress - Head Exam Head Exam: ATRAUMATIC, NORMAL INSPECTION, NORMOCEPHALIC - Eye Exam Eye Exam: EOMI, Normal appearance Pupil Exam: NORMAL ACCOMODATION - ENT Exam ENT Exam: Mucous Membranes Dry - Neck Exam Neck exam: Positive for: Normal Inspection - Respiratory Exam Respiratory Exam: Clear to Auscultation Bilateral, NORMAL BREATHING PATTERN. absent: Accessory Muscle Use, Chest Wall Tenderness, Rales, Rhonchi, Wheezes, Stridor - Cardiovascular Exam Cardiovascular Exam: RRR, +S1, +S2 - GI/Abdominal Exam GI & Abdominal Exam: Normal Bowel Sounds, Soft. absent: Firm, Guarding, Rebound, Rigid, Tenderness Additional comments: No suprapubic tenderness. - Extremities Exam Extremities exam: Positive for: pedal pulses present. Negative for: tenderness Additional comments: Mild Cellulitis/Erythema noted at the lateral aspect of the right heel - improved significantly since prior exam. No evidence of fluctuation or pus drainage. No evidence of drainage or bleeding. Distal pulses are intact. Evidence of multiple toe amputations. Skin is dry and warm. - Neurological Exam Neurological exam: Alert, CN II-XII Intact, Oriented x3 - Psychiatric Exam Psychiatric exam: Normal Affect, Normal Mood - Skin Skin Exam: Dry, Intact, Normal Color, Warm Assessment and Plan - Assessment and Plan (Free Text) Assessment: Patient is a 62 year old female with PMHx DM2 (last A1c 6.8), HTN, CKD Stage IV, Osteoarthritis, Anemia of Chronic Kidney Disease, Seizures, Hearing Loss, and Osteomyelitis presents to [facility] as advised by her binding stitcher, Dr. Raymond, for evaluation of R-heel cellulitis and left 5th metatarsal ulceration. Patient admitted for severe sepsis 2/2 right heel cellulitis with left 5th metatarsal ulceration. Plan: Severe Sepsis 2/ Right Heel Cellulitis with Left 5th Metatarsal Ulceration - SIRS criteria met: Tmax 103, tachycardia; lactate 3.3 with repeat 3.1 - adjusted IVF NS @ 125 cc/hr - monitor BP - CXR ordered - c/w merrem and linezolid as per ID recommendations - f/u blood cx - f/u Bilateral lower ext foot xrays to rule out osteomyelitis - ID placed on consult (Dr. Castellano). Follow up recs. - f/u ESR and CRP - Podiatry on consult (Dr. Raymond) FREDY on CKD Stage IV - BUN/Cr 25/1.9 (baseline Cr 1.7); appears clinically dry on exam - IVF NS @ 75 cc/hr - monitor renal function - Nephro placed on consult (Dr. Reyes) Hyperkalemia - improved - K 4.3 today - K 5.5 on admission with repeat 5.5 overnight; given cocktail - monitor K - Hold home med [place] for now Anemia of chronic kidney disease - Repeat Hgb 7 this morning (baseline 8-9); will repeat this afternoon - FOBT - f/u Ferritin, vitamin b12, and folate ordered - Ferritin significantly elevated in the past (1170), likely chronic disease - c/w home med ferrous gluconate, vitamin b12, and sodium bicarb DM II - ISS - Accuchecks HTN - c/w home med toprol XL - c/w home med aspirin 81mg daily GERD - c/w home med protonix Seizure - c/w home med keppra ppx: - hep sc (Hold) - ptx Diet: CCD Dispo: Monitor patient on tele. Will monitor patient's hemoglobin. She is pending midline today as she is difficult access. Monitor blood pressure. Case was discussed and reviewed with Attending Physician, Dr. Haque <Luna Haque - Last Filed: 07/03/18 15:56> Objective - Vital Signs/Intake and Output Vital Signs (last 24 hours): Temp Pulse Resp BP Pulse Ox 98.4 F 113 H 20 95/55 L 100 07/03/18 12:48 07/03/18 12:48 07/03/18 12:48 07/03/18 12:48 07/03/18 09:00 Intake and Output: 07/03/18 07/03/18 06:59 18:59 Intake Total 0 700 Balance 0 700 - Medications Medications: Current Medications Acetaminophen (Tylenol 650 Mg Supp) 650 mg RC Q4H PRN PRN Reason: Fever >100.4 F Aspirin (Ecotrin) 81 mg PO DAILY [facility] Last Admin: 07/03/18 10:01 Dose: 81 mg Cyanocobalamin (Vitamin B12 1000 Mcg Tab) 500 mcg PO DAILY [facility] Last Admin: 07/03/18 10:04 Dose: 500 mcg Darbepoetin Brown (Aranesp) 100 mcg SC QWK [facility] Last Admin: 07/03/18 11:04 Dose: 100 mcg Dextrose (Dextrose 50% Inj) 0 ml IV STAT PRN; Protocol PRN Reason: Hypoglycemia Protocol Ferrous Gluconate (Fergon) 324 mg PO TID [facility] Last Admin: 07/03/18 13:14 Dose: 324 mg Heparin Sodium (Porcine) (Heparin) 5,000 units SC Q8 [facility]; Protocol Last Admin: 07/03/18 13:14 Dose: 5,000 units Meropenem/Sodium Chloride (Merrem Iv 500 Mg/Ns 50 Ml) 500 mg in 50 mls @ 100 mls/hr IVPB Q12 [facility]; Protocol Stop: 07/11/18 22:01 Last Admin: 07/03/18 10:08 Dose: 100 mls/hr Linezolid (Zyvox 600mg/300ml D5w) 600 mg in 300 mls @ 200 mls/hr IVPB Q12 [facility]; Protocol Stop: 07/11/18 22:01 Last Admin: 07/03/18 10:04 Dose: 200 mls/hr Dextrose (Dextrose 5% In Water 1000 Ml) 1,000 mls @ 0 mls/hr IV .Q0M PRN; Perla col PRN Reason: Hypoglycemia Protocol Sodium Chloride (Sodium Chloride 0.9%) 1,000 mls @ 125 mls/hr IV .Q8H [facility] Last Admin: 07/03/18 07:58 Dose: 125 mls/hr Insulin Human Lispro (Humalog Low) 0 units SC ACHS [facility]; Protocol Last Admin: 07/03/18 12:34 Dose: 3 units Levetiracetam (Keppra) 500 mg PO BID [facility] Last Admin: 07/03/18 10:06 Dose: 500 mg Megestrol Acetate (Megace) 40 mg PO DAILY [facility] Last Admin: 07/03/18 10:02 Dose: 40 mg Metoprolol Succinate (Toprol Xl) 50 mg PO DAILY [facility] Last Admin: 07/03/18 10:03 Dose: Not Given Ondansetron HCl (Zofran Inj) 4 mg IVP Q4H PRN PRN Reason: Nausea/Vomiting Last Admin: 07/03/18 02:21 Dose: 4 mg Pantoprazole Sodium (Protonix Ec Tab) 40 mg PO DAILY [facility] Last Admin: 07/03/18 10:02 Dose: 40 mg Sodium Bicarbonate (Sodium Bicarbonate Tab) 1,300 mg PO QID [facility] Last Admin: 07/03/18 13:14 Dose: 1,300 mg Vitamin B Complex/Vit C/Folic Acid (Nephro-Jenny) 1 tab PO 0800 [facility] - Labs Labs: 07/03/18 14:10 07/03/18 06:25 PT 14.4 SECONDS (9.4-12.5) H 07/02/18 16:15 INR 1.30 07/02/18 16:15 APTT 39.1 Seconds (26.9-38.3) H 07/02/18 16:15 Attending/Attestation - Attestation I have personally seen and examined this patient.: Yes I have fully participated in the care of the patient.: Yes I have reviewed all pertinent clinical information, including history, physical exam and plan: Yes Notes (Text): 07/03/18 15:44 62 year old female with past medical history of diabetes, hypertension, CKD, osteomyelitis and seizures who was referred by her binding stitcher for right heel cellulitis and left 5th metatarsal ulceration. She was recently prescribed outpatient antibiotics. Also found to have anemia and acute on chronic renal failure. Patient was started on iv fluids and antibiotics. ID/podiatry evaluations were appreciated. MRI lower extremities are ordered. Overnight patient had fever 103 and tachycardia. She was given IV boluses. Increased ivf for today. Tachycardia has improved and fever has come down. This morning hemoglobin was 7.0. Repeat H/H is 5.4. May be dilutional component however will need to r/o GIB given her prior history. GI evaluation is requested. Will order for prbc transfusion. Stool for occult blood and iron studies. Patient reports episodes of vomiting last night but now this morning. Tolerating meal and denies any abdominal pain. Scale diet back to liquids for now and switch to iv protonix. Nephrology evaluation was appreciated who gave dose of aranesp. Luna Haque MD Hospitalist.
--- NOTE | 2018-07-03 09:46 | RAD ---
Date of service: 07/03/2018 HISTORY: sepsis COMPARISON: 01/30/2018 TECHNIQUE: 1 view obtained. FINDINGS: LUNGS: There is consolidation at the left lung base consistent with pneumonia PLEURA: No significant pleural effusion identified, no pneumothorax apparent. CARDIOVASCULAR: No aortic atherosclerotic calcification present. Normal cardiac size. No pulmonary vascular congestion. OSSEOUS STRUCTURES: No significant abnormalities. VISUALIZED UPPER ABDOMEN: Normal. OTHER FINDINGS: None. IMPRESSION: There is consolidation at the left lung base consistent with pneumonia
[2018-07-03] MEDS ORDERED: Metoprolol Succinate 50 mg XL Tab PO SCH (10:00)
[2018-07-03] MEDS ORDERED: Pantoprazole 40 mg EC Tab PO SCH (10:00)
[2018-07-03] MEDS ORDERED: Darbepoetin Alfa 100 mcg/ml Inj SC SCH (10:00)
[2018-07-03] MEDS: Linezolid 600 mg in D5W 300 ml 600 MG/300 ML BAG IVPB SCH (10:04)
[2018-07-03] MEDS: MEROPENEM 500 MG in NS 500 MG/50 ML BAG IVPB SCH (10:08)
--- NOTE | 2018-07-03 10:11 | RAD ---
Date of service: 07/02/2018 PROCEDURE: Bilateral feet HISTORY: evaluate for osteo COMPARISON: 01/27/2018 TECHNIQUE: Seven views FINDINGS: There is no bony destruction to suggest acute osteomyelitis in either foot. There has been previous amputations and erosive changes of the metatarsals. Findings are unchanged IMPRESSION: No evidence of acute osteomyelitis
[2018-07-03 11:31] LABS: VENOUS BLOOD GAS PO2 49 mm/Hg (30-55); VENOUS BLOOD PH 7.38 (7.32-7.43)
[2018-07-03 11:51] LABS: FOLATE > 20.0 ng/mL
--- NOTE | 2018-07-03 13:17 | CARD ---
APPROVED REPORT Date of service: 07/03/2018 EKG Measurement Heart [id number] <Conclusion> Sinus tachycardia Nonspecific ST abnormality
--- NOTE | 2018-07-03 13:22 | CP.PCM.CON ---
<Cleo Xavier - Last Filed: 07/03/18 13:19> History of Present Illness - History of Present Illness History of Present Illness: Podiatry consult note for Dr. Raymond 62 year-old female with PMH of DM2 (last A1c 7.3), HTN, CKD IV, OA, and osteomyelitis was seen and evaluated at bedside due to bilateral lower extremity wounds with clinical signs of infection. Patient was seen in wound clinic and sent to the ER for admission. Patient was seen and evaluated at bedside by Podiatry. Patient denies fever/chills, CP, SOB, nausea or vomiting and states she feels much better since ED arrival. Past Medical Hx: DM2 (last A1c 7.3), HTN, CKD IV, OA, and osteomyelitis Past Surgical Hx: cholecystectomy, b/l cataracts, c/s, edna in R leg, toe amputations Allergies: CTX, clindamycin, PCN, bactrim Social Hx: denies current or prior tobacco, alcohol, or drug use. She lives with her and is normally ambulatory and independent with ADLs. 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3cm, left foot 2 small red wounds .3 cm, small wound to ball of left foot dry brown .5cm round, dry flakey skin to both feet,1.5cm x .5cm dry red wiound to ball of right foot, dry scabs to lower right leg (ALL FROM PREVIOUS TRIAGE NOT FROM 04/10/17). 07-02-18 RIGHT HEEL WITH REDNESS,HAS A SMALL 0.6 CM SLOUGH .SURROUNDING AREA HAS + ERYTHEMA. RIGHT LATERAL OUTER MALLEOLAR BONE AREA HAS A LARGE ROUND REDDENED SKIN,+_ ERYTHEMA MEASURES 4 X 5.5 CM WITH CENTER OF WOUND HAS SLOUGH MEASURES 1 X 0.6 CM DM WOUND. LEFT FOOT MULTIPLE TOE AMPUTATED. - MUSCULOSKELETAL/RHEUMATOLOGICAL Hx Musculoskeletal Disorders: Yes Hx Arthritis: Yes Hx Falls: Yes Hx Osteoarthritis: Yes Hx Osteomyelitis: Yes Hx Unsteady Gait: Yes - GASTROINTESTINAL Hx Gastrointestinal Disorders: Yes Hx Gastroesophageal Reflux: Yes - GENITOURINARY/GYNECOLOGICAL Hx Genitourinary Disorders: No - PSYCHIATRIC Hx Emotional Abuse: No Hx Physical Abuse: No Hx Substance Use: No - SURGICAL HISTORY Hx Surgeries: Yes (BILATERAL TOES AMPUTATED,RIGHT FOOT 1 TOE AMPUTATED.) Hx Cholecystectomy: Yes Hx Mastectomy: No Hx Orthopedic Surgery: Yes Other/Comment: BIALTERAL CATARACT SX, - ANESTHESIA Hx Anesthesia: Yes Hx Anesthesia Reactions: No Hx Malignant Hyperthermia: No Meds Allergies/Adverse Reactions: Allergies Allergy/AdvReac Type Severity Reaction Status Date / Time ceftriaxone Allergy SHORTNESS Verified 07/02/18 19:10 OF BREATH clindamycin Allergy RASH Verified 07/02/18 19:10 Penicillins Allergy SHORTNESS Verified 07/02/18 19:10 OF BREATH sulfamethoxazole Allergy RASH Verified 07/02/18 19:10 [From Bactrim] trimethoprim [From Bactrim] Allergy RASH Verified 07/02/18 19:10 - Medications Medications: Current Medications Acetaminophen (Tylenol 650 Mg Supp) 650 mg RC Q4H PRN PRN Reason: Fever >100.4 F Aspirin (Ecotrin) 81 mg PO DAILY [facility] [place] Last Admin: 07/03/18 10:01 Dose: 81 mg Cyanocobalamin (Vitamin B12 1000 Mcg Tab) 500 mcg PO DAILY [facility] [place] Last Admin: 07/03/18 10:04 Dose: 500 mcg Darbepoetin Brown (Aranesp) 100 mcg SC QWK [facility] [place] Last Admin: 07/03/18 11:04 Dose: 100 mcg Dextrose (Dextrose 50% Inj) 0 ml IV STAT PRN; Protocol PRN Reason: Hypoglycemia Protocol Ferrous Gluconate (Fergon) 324 mg PO TID [facility] [place] Last Admin: 07/03/18 13:14 Dose: 324 mg Heparin Sodium (Porcine) (Heparin) 5,000 units SC Q8 [facility]; Protocol Last Admin: 07/03/18 13:14 Dose: 5,000 units Meropenem/Sodium Chloride (Merrem Iv 500 Mg/Ns 50 Ml) 500 mg in 50 mls @ 100 mls/hr IVPB Q12 [facility]; Protocol Stop: 07/11/18 22:01 Last Admin: 07/03/18 10:08 Dose: 100 mls/hr Linezolid (Zyvox 600mg/300ml D5w) 600 mg in 300 mls @ 200 mls/hr IVPB Q12 [facility]; Protocol Stop: 07/11/18 22:01 Last Admin: 07/03/18 10:04 Dose: 200 mls/hr Dextrose (Dextrose 5% In Water 1000 Ml) 1,000 mls @ 0 mls/hr IV .Q0M PRN; Protocol PRN Reason: Hypoglycemia Protocol Sodium Chloride (Sodium Chloride 0.9%) 1,000 mls @ 125 mls/hr IV .Q8H [facility] [place] Last Admin: 07/03/18 07:58 Dose: 125 mls/hr Insulin Human Lispro (Humalog Low) 0 units SC ACHS [facility] [place]; Protocol Last Admin: 07/03/18 12:34 Dose: 3 units Levetiracetam (Keppra) 500 mg PO BID [facility] [place] Last Admin: 07/03/18 10:06 Dose: 500 mg Megestrol Acetate (Megace) 40 mg PO DAILY [facility] [place] Last Admin: 07/03/18 10:02 Dose: 40 mg Metoprolol Succinate (Toprol Xl) 50 mg PO DAILY [facility] [place] Last Admin: 07/03/18 10:03 Dose: Not Given Ondansetron HCl (Zofran Inj) 4 mg IVP Q4H PRN PRN Reason: Nausea/Vomiting Last Admin: 07/03/18 02:21 Dose: 4 mg Pantoprazole Sodium (Protonix Ec Tab) 40 mg PO DAILY [facility] [place] Last Admin: 07/03/18 10:02 Dose: 40 mg Sodium Bicarbonate (Sodium Bicarbonate Tab) 1,300 mg PO QID [facility] [place] Last Admin: 07/03/18 13:14 Dose: 1,300 mg Vitamin B Complex/Vit C/Folic Acid (Nephro-Jenny) 1 tab PO 0800 [facility] Physical Exam - Constitutional Appears: Well, Non-toxic, No Acute Distress - Head Exam Head Exam: ATRAUMATIC, NORMOCEPHALIC - Extremities Exam Additional comments: Lower extremity focused examination: Vasc: DP/PT pulses palpable 2/4 B/L. Temperature gradient warm to warm from proximal to distal. Cap refill time: < 3 sec to all digits, mild non-pitting vince ma noted on bilateral LE (R>L) Neuro: Protective sensation is grossly intact B/L Derm: Right- right lateral malleolar and heel ulceration measuring about 1 cm X 1 cm, positive erythema and drainage, signs of infection noted Left- left submetatarsal 5th ulceration multiple other hyperkeratotic lesions MSK: No pain on palpation of the foot wound. Left ankle ulceration mildly tender - Neurological Exam Neurological exam: Alert, Oriented x3 - Psychiatric Exam Psychiatric exam: Normal Affect, Normal Mood Results - Vital Signs Recent Vital Signs: Last Vital Signs Temp 98.4 F 07/03/18 12:48 Pulse 113 H 07/03/18 12:48 Resp 20 07/03/18 12:48 BP 95/55 L 07/03/18 12:48 Pulse Ox 100 07/03/18 09:00 - Labs Result Diagrams: 07/03/18 06:25 07/03/18 06:25 Labs: Laboratory Results - last 24 hr 07/02/18 07/02/18 07/02/18 16:15 16:15 16:15 WBC 13.4 H D RBC 2.63 L Hgb 7.8 L Hct 25.3 L MCV 96.2 MCH 29.7 MCHC 30.8 L RDW 14.5 Plt Count 360 MPV 9.6 Neut % (Auto) 74.5 H Lymph % (Auto) 11.8 L Ransom % (Auto) 12.9 H Eos % (Auto) 0.7 L Baso % (Auto) 0.1 Lymph # (Auto) 1.6 Ransom # (Auto) 1.7 H Eos # (Auto) 0.1 Baso # (Auto) 0.01 Absolute Neuts (auto) 9.96 H ESR PT 14.4 H INR 1.30 APTT 39.1 H pO2 VBG pH VBG pCO2 VBG HCO3 VBG Total CO2 VBG O2 Sat (Calc) VBG Base Excess VBG Potassium Glucose Lactate FiO2 Crit Value Called To Crit Value Called By Blood Gas Notified Time Sodium 141 Potassium 5.5 H Chloride 113 H Carbon Dioxide 15 L Anion Gap 19 BUN 34 H Creatinine 2.0 H Est GFR ( Amer) 31 Est GFR (Non-Af Amer) 25 POC Glucose (mg/dL) Random Glucose 93 Hemoglobin A1c Calcium 9.9 Phosphorus Magnesium Ferritin Total Bilirubin 0.5 AST 44 H D ALT 30 Alkaline Phosphatase 160 H Troponin I C-Reactive Protein Total Protein 8.6 H Albumin 4.3 Globulin 4.3 Albumin/Globulin Ratio 1.0 L Vitamin B12 Folate Venous Blood Potassium Urine Color Urine Appearance Urine pH Ur Specific Eads Urine Protein Urine Glucose (UA) Urine Ketones Urine Blood Urine Nitrate Urine Bilirubin Urine Urobilinogen Ur Leukocyte Esterase Urine RBC Urine WBC Ur Epithelial Cells 07/02/18 07/02/18 07/02/18 18:30 18:30 22:15 WBC RBC Hgb Hct MCV MCH MCHC RDW Plt Count MPV Neut % (Auto) Lymph % (Auto) Ransom % (Auto) Eos % (Auto) Baso % (Auto) Lymph # (Auto) Ransom # (Auto) Eos # (Auto) Baso # (Auto) Absolute Neuts (auto) ESR 148 H PT INR APTT pO2 VBG pH VBG pCO2 VBG HCO3 VBG Total CO2 VBG O2 Sat (Calc) VBG Base Excess VBG Potassium Glucose Lactate FiO2 Crit Value Called To Crit Value Called By Blood Gas Notified Time Sodium 143 Potassium 5.5 H Chloride 113 H Carbon Dioxide 17 L Anion Gap 19 BUN 34 H Creatinine 2.0 H Est GFR ( Amer) 31 Est GFR (Non-Af Amer) 25 POC Glucose (mg/dL) 191 H Random Glucose 67 L Hemoglobin A1c Calcium 10.0 Phosphorus Magnesium Ferritin 1680.0 Total Bilirubin AST ALT Alkaline Phosphatase Troponin I C-Reactive Protein 261.50 H Total Protein Albumin Globulin Albumin/Globulin Ratio Vitamin B12 914 Folate > 20.0 Venous Blood Potassium Urine Color Urine Appearance Urine pH Ur Specific Eads Urine Protein Urine Glucose (UA) Urine Ketones Urine Blood Urine Nitrate Urine Bilirubin Urine Urobilinogen Ur Leukocyte Esterase Urine RBC Urine WBC Ur Epithelial Cells 07/03/18 07/03/18 07/03/18 00:05 01:18 01:49 WBC RBC Hgb Hct MCV MCH MCHC RDW Plt Count MPV Neut % (Auto) Lymph % (Auto) Ransom % (Auto) Eos % (Auto) Baso % (Auto) Lymph # (Auto) Ransom # (Auto) Eos # (Auto) Baso # (Auto) Absolute Neuts (auto) ESR PT INR APTT pO2 86 H VBG pH 7.39 VBG pCO2 23.0 L VBG HCO3 13.9 L VBG Total CO2 14.6 L VBG O2 Sat (Calc) 97.8 H VBG Base Excess -9.0 L VBG Potassium 4.4 Glucose 217 H Lactate 3.3 H FiO2 21.0 Crit Value Called To Tamica villavicencio Crit Value Called By Tanvi Blood Gas Notified Time 200 Sodium 142.0 Potassium Chloride 110.0 H Carbon Dioxide Anion Gap BUN Creatinine Est GFR ( Amer) Est GFR (Non-Af Amer) POC Glucose (mg/dL) 236 H Random Glucose Hemoglobin A1c Calcium Phosphorus Magnesium Ferritin Total Bilirubin AST ALT Alkaline Phosphatase Troponin I C-Reactive Protein Total Protein Albumin Globulin Albumin/Globulin Ratio Vitamin B12 Folate Venous Blood Potassium 4.4 Urine Color Light yellow Urine Appearance Clear Urine pH 7.0 Ur Specific Eads 1.010 Urine Protein Trace H Urine Glucose (UA) Negative Urine Ketones Negative Urine Blood Negative Urine Nitrate Negative Urine Bilirubin Negative Urine Urobilinogen 0.2 Ur Leukocyte Esterase Trace H Urine RBC None Urine WBC 1 - 3 Ur Epithelial Cells 3 - 4 07/03/18 07/03/18 07/03/18 04:41 06:25 06:25 WBC 8.7 D RBC 2.38 L Hgb 7.0 L Hct 22.4 L MCV 94.1 MCH 29.4 MCHC 31.3 RDW 14.2 Plt Count 310 MPV 9.5 Neut % (Auto) Lymph % (Auto) Ransom % (Auto) Eos % (Auto) Baso % (Auto) Lymph # (Auto) Ransom # (Auto) Eos # (Auto) Baso # (Auto) Absolute Neuts (auto) ESR PT INR APTT pO2 VBG pH VBG pCO2 VBG HCO3 VBG Total CO2 VBG O2 Sat (Calc) VBG Base Excess VBG Potassium Glucose Lactate FiO2 Crit Value Called To Crit Value Called By Blood Gas Notified Time Sodium 142 Potassium 4.3 Chloride 115 H Carbon Dioxide 14 L Anion Gap 17 BUN 25 H Creatinine 1.9 H Est GFR ( Amer) 33 Est GFR (Non-Af Amer) 27 POC Glucose (mg/dL) 474 H* Random Glucose 169 H Hemoglobin A1c Calcium 9.8 Phosphorus 3.6 Magnesium 2.2 Ferritin Total Bilirubin 0.4 AST 42 H ALT 38 Alkaline Phosphatase 150 H Troponin I 0.05 D C-Reactive Protein Total Protein 7.3 Albumin 3.7 Globulin 3.6 Albumin/Globulin Ratio 1.0 L Vitamin B12 Folate Venous Blood Potassium Urine Color Urine Appearance Urine pH Ur Specific Eads Urine Protein Urine Glucose (UA) Urine Ketones Urine Blood Urine Nitrate Urine Bilirubin Urine Urobilinogen Ur Leukocyte Esterase Urine RBC Urine WBC Ur Epithelial Cells 07/03/18 07/03/18 07/03/18 06:25 06:59 07:27 WBC RBC Hgb Hct MCV MCH MCHC RDW Plt Count MPV Neut % (Auto) Lymph % (Auto) Ransom % (Auto) Eos % (Auto) Baso % (Auto) Lymph # (Auto) Ransom # (Auto) Eos # (Auto) Baso # (Auto) Absolute Neuts (auto) ESR PT INR APTT pO2 94 H VBG pH 7.35 VBG pCO2 24.0 L VBG HCO3 13.2 L VBG Total CO2 13.9 L VBG O2 Sat (Calc) 98.0 H VBG Base Excess -10.5 L VBG Potassium 4.1 Glucose 172 H Lactate 3.1 H FiO2 21.0 Crit Value Called To Ginger herrera Crit Value Called By Tanvi Blood Gas Notified Time 645 Sodium 143.0 Potassium Chloride 112.0 H Carbon Dioxide Anion Gap BUN Creatinine Est GFR ( Amer) Est GFR (Non-Af Amer) POC Glucose (mg/dL) 109 Random Glucose Hemoglobin A1c 6.2 Calcium Phosphorus Magnesium Ferritin Total Bilirubin AST ALT Alkaline Phosphatase Troponin I C-Reactive Protein Total Protein Albumin Globulin Albumin/Globulin Ratio Vitamin B12 Folate Venous Blood Potassium 4.1 Urine Color Urine Appearance Urine pH Ur Specific Eads Urine Protein Urine Glucose (UA) Urine Ketones Urine Blood Urine Nitrate Urine Bilirubin Urine Urobilinogen Ur Leukocyte Esterase Urine RBC Urine WBC Ur Epithelial Cells 07/03/18 11:15 WBC RBC Hgb Hct MCV MCH MCHC RDW Plt Count MPV Neut % (Auto) Lymph % (Auto) Ransom % (Auto) Eos % (Auto) Baso % (Auto) Lymph # (Auto) Ransom # (Auto) Eos # (Auto) Baso # (Auto) Absolute Neuts (auto) ESR PT INR APTT pO2 49 VBG pH 7.38 VBG pCO2 26.0 L VBG HCO3 15.4 L VBG Total CO2 16.2 L VBG O2 Sat (Calc) 88.6 H VBG Base Excess -8.0 L VBG Potassium 4.4 Glucose 175 H Lactate 1.5 FiO2 21.0 Crit Value Called To Peg schilling Crit Value Called By Michi Blood Gas Notified Time 1130 Sodium 142.0 Potassium Chloride 113.0 H Carbon Dioxide Anion Gap BUN Creatinine Est GFR ( Amer) Est GFR (Non-Af Amer) POC Glucose (mg/dL) Random Glucose Hemoglobin A1c Calcium Phosphorus Magnesium Ferritin Total Bilirubin AST ALT Alkaline Phosphatase Troponin I C-Reactive Protein Total Protein Albumin Globulin Albumin/Globulin Ratio Vitamin B12 Folate Venous Blood Potassium 4.4 Urine Color Urine Appearance Urine pH Ur Specific Eads Urine Protein Urine Glucose (UA) Urine Ketones Urine Blood Urine Nitrate Urine Bilirubin Urine Urobilinogen Ur Leukocyte Esterase Urine RBC Urine WBC Ur Epithelial Cells Assessment & Plan - Assessment and Plan (Free Text) Assessment: 62 y/o female sent to ED for admission for IV Abx due to clinical infected wounds Plan: Patient seen and evaluated Plan discussed with Dr. Raymond Chart, labs and vitals reviewed- afebrile at this time, WBC 8.7 from 13.4 on admission Foot Xray- no evidence of acute osteomyelitis noted Ordered B/L LE MRI without contrast W Wound Culture- pending Wounds debrided with sterile #15 blade and dressed with Normogel Ag, Maxxorb and DSD Continue IV Abx Continue medical management as per primary team Podiatry will continue to follow patient while in house - Date & Time Date: 07/03/18 Time: 13:33 <Jose Raymond - Last Filed: 07/03/18 18:20> Meds - Medications Medications: Current Medications Acetaminophen (Tylenol 650 Mg Supp) 650 mg RC Q4H PRN PRN Reason: Fever >100.4 F Aspirin (Ecotrin) 81 mg PO DAILY [facility] [place] Last Admin: 07/03/18 10:01 Dose: 81 mg Cyanocobalamin (Vitamin B12 1000 Mcg Tab) 500 mcg PO DAILY [facility] [place] Last Admin: 07/03/18 10:04 Dose: 500 mcg Darbepoetin Brown (Aranesp) 100 mcg SC QWK [facility] [place] Last Admin: 07/03/18 11:04 Dose: 100 mcg Dextrose (Dextrose 50% Inj) 0 ml IV STAT PRN; Protocol PRN Reason: Hypoglycemia Protocol Ferrous Gluconate (Fergon) 324 mg PO TID [facility] [place] Last Admin: 07/03/18 17:03 Dose: 324 mg Heparin Sodium (Porcine) (Heparin) 5,000 units SC Q8 [facility]; Protocol Last Admin: 07/03/18 13:14 Dose: 5,000 units Meropenem/Sodium Chloride (Merrem Iv 500 Mg/Ns 50 Ml) 500 mg in 50 mls @ 100 mls/hr IVPB Q12 [facility] [place]; Protocol Stop: 07/11/18 22:01 Last Admin: 07/03/18 10:08 Dose: 100 mls/hr Linezolid (Zyvox 600mg/300ml D5w) 600 mg in 300 mls @ 200 mls/hr IVPB Q12 [facility]; Protocol Stop: 07/11/18 22:01 Last Admin: 07/03/18 10:04 Dose: 200 mls/hr Dextrose (Dextrose 5% In Water 1000 Ml) 1,000 mls @ 0 mls/hr IV .Q0M PRN; Protocol PRN Reason: Hypoglycemia Protocol Sodium Chloride (Sodium Chloride 0.9%) 1,000 mls @ 125 mls/hr IV .Q8H [facility] [place] Last Admin: 07/03/18 17:06 Dose: 125 mls/hr Insulin Human Lispro (Humalog Low) 0 units SC ACHS [facility] [place]; Protocol Last Admin: 07/03/18 17:35 Dose: Not Given Levetiracetam (Keppra) 500 mg PO BID [facility] [place] Last Admin: 07/03/18 17:03 Dose: 500 mg Megestrol Acetate (Megace) 40 mg PO DAILY [facility] [place] Last Admin: 07/03/18 10:02 Dose: 40 mg Ondansetron HCl (Zofran Inj) 4 mg IVP Q4H PRN PRN Reason: Nausea/Vomiting Last Admin: 07/03/18 02:21 Dose: 4 mg Pantoprazole Sodium (Protonix Inj) 40 mg IVP DAILY [facility] [place] Last Admin: 07/03/18 17:03 Dose: 40 mg Sodium Bicarbonate (Sodium Bicarbonate Tab) 1,300 mg PO QID [facility] Last Admin: 07/03/18 17:03 Dose: 1,300 mg Vitamin B Complex/Vit C/Folic Acid (Nephro-Jenny) 1 tab PO 0800 [facility] [place] Results - Vital Signs Recent Vital Signs: Last Vital Signs Temp 98.2 F 07/03/18 18:00 Pulse 113 H 07/03/18 18:00 Resp 20 07/03/18 18:00 BP 132/67 07/03/18 18:00 Pulse Ox 100 07/03/18 18:00 - Labs Result Diagrams: 07/03/18 14:10 07/03/18 06:25 Labs: Laboratory Results - last 24 hr 07/02/18 07/02/18 07/02/18 18:30 18:30 22:15 WBC RBC Hgb Hct MCV MCH MCHC RDW Plt Count MPV ESR 148 H pO2 VBG pH VBG pCO2 VBG HCO3 VBG Total CO2 VBG O2 Sat (Calc) VBG Base Excess VBG Potassium Glucose Lactate FiO2 Crit Value Called To Crit Value Called By Blood Gas Notified Time Sodium 143 Potassium 5.5 H Chloride 113 H Carbon Dioxide 17 L Anion Gap 19 BUN 34 H Creatinine 2.0 H Est GFR ( Amer) 31 Est GFR (Non-Af Amer) 25 POC Glucose (mg/dL) 191 H Random Glucose 67 L Hemoglobin A1c Calcium 10.0 Phosphorus Magnesium Iron TIBC % Saturation Ferritin 1680.0 Total Bilirubin AST ALT Alkaline Phosphatase Troponin I C-Reactive Protein 261.50 H Total Protein Albumin Globulin Albumin/Globulin Ratio Vitamin B12 914 Folate > 20.0 Venous Blood Potassium Urine Color Urine Appearance Urine pH Ur Specific Eads Urine Protein Urine Glucose (UA) Urine Ketones Urine Blood Urine Nitrate Urine Bilirubin Urine Urobilinogen Ur Leukocyte Esterase Urine RBC Urine WBC Ur Epithelial Cells Crossmatch BBK History Checked 07/03/18 07/03/18 07/03/18 00:05 01:18 01:49 WBC RBC Hgb Hct MCV MCH MCHC RDW Plt Count MPV ESR pO2 86 H VBG pH 7.39 VBG pCO2 23.0 L VBG HCO3 13.9 L VBG Total CO2 14.6 L VBG O2 Sat (Calc) 97.8 H VBG Base Excess -9.0 L VBG Potassium 4.4 Glucose 217 H Lactate 3.3 H FiO2 21.0 Crit Value Called To Tamica villavicencio Crit Value Called By Tanvi Blood Gas Notified Time 200 Sodium 142.0 Potassium Chloride 110.0 H Carbon Dioxide Anion Gap BUN Creatinine Est GFR ( Amer) Est GFR (Non-Af Amer) POC Glucose (mg/dL) 236 H Random Glucose Hemoglobin A1c Calcium Phosphorus Magnesium Iron TIBC % Saturation Ferritin Total Bilirubin AST ALT Alkaline Phosphatase Troponin I C-Reactive Protein Total Protein Albumin Globulin Albumin/Globulin Ratio Vitamin B12 Folate Venous Blood Potassium 4.4 Urine Color Light yellow Urine Appearance Clear Urine pH 7.0 Ur Specific Eads 1.010 Urine Protein Trace H Urine Glucose (UA) Negative Urine Ketones Negative Urine Blood Negative Urine Nitrate Negative Urine Bilirubin Negative Urine Urobilinogen 0.2 Ur Leukocyte Esterase Trace H Urine RBC None Urine WBC 1 - 3 Ur Epithelial Cells 3 - 4 Crossmatch BBK History Checked 07/03/18 07/03/18 07/03/18 04:41 06:25 06:25 WBC 8.7 D RBC 2.38 L Hgb 7.0 L Hct 22.4 L MCV 94.1 MCH 29.4 MCHC 31.3 RDW 14.2 Plt Count 310 MPV 9.5 ESR pO2 VBG pH VBG pCO2 VBG HCO3 VBG Total CO2 VBG O2 Sat (Calc) VBG Base Excess VBG Potassium Glucose Lactate FiO2 Crit Value Called To Crit Value Called By Blood Gas Notified Time Sodium 142 Potassium 4.3 Chloride 115 H Carbon Dioxide 14 L Anion Gap 17 BUN 25 H Creatinine 1.9 H Est GFR ( Amer) 33 Est GFR (Non-Af Amer) 27 POC Glucose (mg/dL) 474 H* Random Glucose 169 H Hemoglobin A1c Calcium 9.8 Phosphorus 3.6 Magnesium 2.2 Iron TIBC % Saturation Ferritin Total Bilirubin 0.4 AST 42 H ALT 38 Alkaline Phosphatase 150 H Troponin I 0.05 D C-Reactive Protein Total Protein 7.3 Albumin 3.7 Globulin 3.6 Albumin/Globulin Ratio 1.0 L Vitamin B12 Folate Venous Blood Potassium Urine Color Urine Appearance Urine pH Ur Specific Eads Urine Protein Urine Glucose (UA) Urine Ketones Urine Blood Urine Nitrate Urine Bilirubin Urine Urobilinogen Ur Leukocyte Esterase Urine RBC Urine WBC Ur Epithelial Cells Crossmatch BBK History Checked 07/03/18 07/03/18 07/03/18 06:25 06:59 07:27 WBC RBC Hgb Hct MCV MCH MCHC RDW Plt Count MPV ESR pO2 94 H VBG pH 7.35 VBG pCO2 24.0 L VBG HCO3 13.2 L VBG Total CO2 13.9 L VBG O2 Sat (Calc) 98.0 H VBG Base Excess -10.5 L VBG Potassium 4.1 Glucose 172 H Lactate 3.1 H FiO2 21.0 Crit Value Called To Ginger herrera Crit Value Called By Tanvi Blood Gas Notified Time 645 Sodium 143.0 Potassium Chloride 112.0 H Carbon Dioxide Anion Gap BUN Creatinine Est GFR ( Amer) Est GFR (Non-Af Amer) POC Glucose (mg/dL) 109 Random Glucose Hemoglobin A1c 6.2 Calcium Phosphorus Magnesium Iron TIBC % Saturation Ferritin Total Bilirubin AST ALT Alkaline Phosphatase Troponin I C-Reactive Protein Total Protein Albumin Globulin Albumin/Globulin Ratio Vitamin B12 Folate Venous Blood Potassium 4.1 Urine Color Urine Appearance Urine pH Ur Specific Eads Urine Protein Urine Glucose (UA) Urine Ketones Urine Blood Urine Nitrate Urine Bilirubin Urine Urobilinogen Ur Leukocyte Esterase Urine RBC Urine WBC Ur Epithelial Cells Crossmatch BBK History Checked 07/03/18 07/03/18 07/03/18 11:15 11:54 14:00 WBC RBC Hgb Hct MCV MCH MCHC RDW Plt Count MPV ESR pO2 49 VBG pH 7.38 VBG pCO2 26.0 L VBG HCO3 15.4 L VBG Total CO2 16.2 L VBG O2 Sat (Calc) 88.6 H VBG Base Excess -8.0 L VBG Potassium 4.4 Glucose 175 H Lactate 1.5 FiO2 21.0 Crit Value Called To Peg schilling Crit Value Called By Michi Blood Gas Notified Time 1130 Sodium 142.0 Potassium Chloride 113.0 H Carbon Dioxide Anion Gap BUN Creatinine Est GFR ( Amer) Est GFR (Non-Af Amer) POC Glucose (mg/dL) 274 H Random Glucose Hemoglobin A1c Calcium Phosphorus Magnesium Iron 10 L TIBC 154 L % Saturation 7 L Ferritin Total Bilirubin AST ALT Alkaline Phosphatase Troponin I C-Reactive Protein Total Protein Albumin Globulin Albumin/Globulin Ratio Vitamin B12 Folate Venous Blood Potassium 4.4 Urine Color Urine Appearance Urine pH Ur Specific Eads Urine Protein Urine Glucose (UA) Urine Ketones Urine Blood Urine Nitrate Urine Bilirubin Urine Urobilinogen Ur Leukocyte Esterase Urine RBC Urine WBC Ur Epithelial Cells Crossmatch BBK History Checked 07/03/18 07/03/18 14:10 17:11 WBC 8.7 RBC 1.82 L Hgb 5.4 L* Hct 17.2 L* MCV 94.5 MCH 29.7 MCHC 31.4 RDW 14.1 Plt Count 274 MPV 9.0 ESR pO2 VBG pH VBG pCO2 VBG HCO3 VBG Total CO2 VBG O2 Sat (Calc) VBG Base Excess VBG Potassium Glucose Lactate FiO2 Crit Value Called To Crit Value Called By Blood Gas Notified Time Sodium Potassium Chloride Carbon Dioxide Anion Gap BUN Creatinine Est GFR ( Amer) Est GFR (Non-Af Amer) POC Glucose (mg/dL) Random Glucose Hemoglobin A1c Calcium Phosphorus Magnesium Iron TIBC % Saturation Ferritin Total Bilirubin AST ALT Alkaline Phosphatase Troponin I C-Reactive Protein Total Protein Albumin Globulin Albumin/Globulin Ratio Vitamin B12 Folate Venous Blood Potassium Urine Color Urine Appearance Urine pH Ur Specific Eads Urine Protein Urine Glucose (UA) Urine Ketones Urine Blood Urine Nitrate Urine Bilirubin Urine Urobilinogen Ur Leukocyte Esterase Urine RBC Urine WBC Ur Epithelial Cells Crossmatch See Detail BBK History Checked Patient has bt Attending/Attestation - Attestation I have personally seen and examined this patient.: Yes I have fully participated in the care of the patient.: Yes I have reviewed all pertinent clinical information: Yes
[2018-07-03 14:24] LABS: MEAN CELL VOLUME 94.5 fl (80.0-105.0); MEAN CORPUSCULAR HEMOGLOBIN 29.7 pg (25.0-35.0); MEAN CORPUSCULAR HGB CONC 31.4 g/dl (31.0-37.0); RBC 1.82 {null, 10^6/uL} (3.5-6.1); RED CELL DISTRIBUTION WIDTH 14.1 % (11.5-14.5); WHITE BLOOD COUNT 8.7 {null, 10^3/uL} (4.5-11.0)
[2018-07-03 14:27] LABS: HEMOGLOBIN 5.4 g/dL (12.0-16.0)
--- NOTE | 2018-07-03 15:21 | CP.PCM.CON ---
History of Present Illness - History of Present Illness History of Present Illness: Nephrology Consultation Note: Assessment: critical Acute Kidney Injury (N17.9) sepsis with feet cellulitis HAGMA With lactic acidosis anemia of chronic disease, metabolic acidosis (dRTA), hyperkalemia Diabetic chronic Kidney Disease (E11.22) Hypertensive Chronic Kidney Disease (I12.9) Chronic Kidney Disease (N18.3) Stage 3 hearing loss, esophageal stenosis, basal cell CA on nasal skin s/p removal, hx of seizure, recurrent FREDY Plan No acute need for renal replacement therapy at this time. No ACEI/ARB due to FREDY and hyperkalemia. maintain hemodynamics stable. avoid hypotension Monitor Input/Output, daily weights and renal function with basic metabolic panel continue Sodium bicarb 1300 mg qid dose of ananesp 60 mcg on 07/03/18, as needed PRBC transfusion continue with IVF as NS Dose meds/antibiotics for reduced GFR. Avoid fleets enema/magnesium based laxatives. Avoid nephrotoxins/NSAIDs/ iodinated contrast (unless needed emergently) Glycemic control Further work up/management as per primary team Thanks for allowing me to participate in care of your patient. Will follow patient with you. Please call if any Qs. had d/w team Dr Javier Reyes Office: [phone] CC; heel wound/ulcer reason for consult: CKD management HPI: Pt is a 62 y/o F with hx of diabetes Mellitus ( x 8-9 years) with retinopathy, hypertension, hearing loss, esophageal stenosis, chronic anemia, basal cell CA on nasal skin s/p removal, recurrent AKIs, now has CKD stage 3 with anemia, RTA and hyperkalemia, seizure came with feet wound and infection with sepsis renal consult for CKD management. Denies chest pain, palpitation, shortness of breath, leg swelling. Had chronic loose stool 2-3 times/day but better now a days. ROS: pt c/o skin rash. no CP/SOB. no pain abdomen. all other negative except f eet wound General Appearance: comfortable, in no acute respiratory distress, co-operative. thin built. Vitals reviewed and noted Head; Atraumatic, normocephalic ENT: no ulcers no thrush. Tongue is midline. Oropharynx: no rash or ulcers. Hard of hearing. Uses hearing aid. EYES: Pupils are equal, round and reactive to light accommodation. Eye muscles and extraocular movement intact. Sclera is anicteric. Neck; supple no lymphadenopathy, no thyromegaly or bruit Lungs: Normal respiratory rate/effort. Breath sounds bilateral equal and clear Heart: Increased rate. s1s2 normal. No rub or gallop. Extremities: no edema with wound dressed at feet. No varicose veins. Hand osteoarthritic deformities +. Neurological: Patient is alert, awake and oriented to person, place and time. No focal deficit. Strength bilateral appropriate and equal Skin: Warm and dry. Normal turgor. Palpitation: Normal elasticity for age. has erythemtous rash in upper extremities Abdomen: Abdomen is soft. Bowel sounds +. There is no abdominal tenderness, no guarding/rigidity or organomegaly Psych: normal insight and normal affect/mood MSK: no joint tenderness or swelling. : kidney or bladder not palpable Labs/imaging reviewed. Past medical history, past surgical history, family history, social history, allergy reviewed and noted as below Family hx: no hx of CKD. Rest non-contributory Work up: 09/13/2016: GN serologies all negative, scleroderma work up neg, SPEP/LUDY neg Renal sono: b/l cortical atrophy. Small 1 cm Rt kidney simple cyst. Past Patient History - Infectious Disease Hx of Infectious Diseases: None - Tetanus Immunizations Tetanus Immunization: Unknown - Past Medical History & Family History Past Medical History?: Yes - Past Social History Smoking Status: Never Smoked - CARDIAC Hx Cardiac Disorders: Yes Hx Hypertension: Yes Hx Pacemaker: No - PULMONARY Hx Respiratory Disorders: No - NEUROLOGICAL Hx Neurological Disorder: Yes (headaches) Other/Comment: 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 - HEENT Hx HEENT Problems: Yes Hx Cataracts: Yes (sx both eyes) - RENAL Hx Chronic Kidney Disease: Yes Other/Comment: chronic kidney disease - ENDOCRINE/METABOLIC Hx Endocrine Disorders: Yes (THYROID MASS) Hx Diabetes Mellitus Type 2: Yes Hx Hyperthyroidism: Yes - HEMATOLOGICAL/ONCOLOGICAL Hx Blood Disorders: Yes Hx Anemia: Yes (HAD BLOOD TRANSFUSIONS.) Hx Cancer: No - INTEGUMENTARY Hx Dermatological Problems: Yes (bilateral diabetic foot ulcers) Other/Comment: left foot redness, broken blister to left great toe 2cm round, red and yellow slough noted, small black round wound to left 4th toe .3cm, left foot 2 small red wounds .3 cm, small wound to ball of left foot dry brown .5cm round, dry flakey skin to both feet,1.5cm x .5cm dry red wiound to ball of right foot, dry scabs to lower right leg (ALL FROM PREVIOUS TRIAGE NOT FROM 04/10/17). 07-02-18 RIGHT HEEL WITH REDNESS,HAS A SMALL 0.6 CM SLOUGH .SURROUNDING AREA HAS + ERYTHEMA. RIGHT LATERAL OUTER MALLEOLAR BONE AREA HAS A LARGE ROUND REDDENED SKIN,+_ ERYTHEMA MEASURES 4 X 5.5 CM WITH CENTER OF WOUND HAS SLOUGH MEASURES 1 X 0.6 CM DM WOUND. LEFT FOOT MULTIPLE TOE AMPUTATED. - MUSCULOSKELETAL/RHEUMATOLOGICAL Hx Musculoskeletal Disorders: Yes Hx Arthritis: Yes Hx Falls: Yes Hx Osteoarthritis: Yes Hx Osteomyelitis: Yes Hx Unsteady Gait: Yes - GASTROINTESTINAL Hx Gastrointestinal Disorders: Yes Hx Gastroesophageal Reflux: Yes - GENITOURINARY/GYNECOLOGICAL Hx Genitourinary Disorders: No - PSYCHIATRIC Hx Emotional Abuse: No Hx Physical Abuse: No Hx Substance Use: No - SURGICAL HISTORY Hx Surgeries: Yes (BILATERAL TOES AMPUTATED,RIGHT FOOT 1 TOE AMPUTATED.) Hx Cholecystectomy: Yes Hx Mastectomy: No Hx Orthopedic Surgery: Yes Other/Comment: BIALTERAL CATARACT SX, - ANESTHESIA Hx Anesthesia: Yes Hx Anesthesia Reactions: No Hx Malignant Hyperthermia: No Meds Allergies/Adverse Reactions: Allergies Allergy/AdvReac Type Severity Reaction Status Date / Time ceftriaxone Allergy SHORTNESS Verified 07/02/18 19:10 OF BREATH clindamycin Allergy RASH Verified 07/02/18 19:10 Penicillins Allergy SHORTNESS Verified 07/02/18 19:10 OF BREATH sulfamethoxazole Allergy RASH Verified 07/02/18 19:10 [From Bactrim] trimethoprim [From Bactrim] Allergy RASH Verified 07/02/18 19:10 - Medications Medications: Current Medications Acetaminophen (Tylenol 650 Mg Supp) 650 mg RC Q4H PRN PRN Reason: Fever >100.4 F Aspirin (Ecotrin) 81 mg PO DAILY REPLACED BY [facility] Last Admin: 07/03/18 10:01 Dose: 81 mg Cyanocobalamin (Vitamin B12 1000 Mcg Tab) 500 mcg PO DAILY REPLACED BY [facility] Last Admin: 07/03/18 10:04 Dose: 500 mcg Darbepoetin Brown (Aranesp) 100 mcg SC QWK REPLACED BY [facility] Last Admin: 07/03/18 11:04 Dose: 100 mcg Dextrose (Dextrose 50% Inj) 0 ml IV STAT PRN; Protocol PRN Reason: Hypoglycemia Protocol Ferrous Gluconate (Fergon) 324 mg PO TID REPLACED BY [facility] Last Admin: 07/03/18 13:14 Dose: 324 mg Heparin Sodium (Porcine) (Heparin) 5,000 units SC Q8 MALA; Protocol Last Admin: 07/03/18 13:14 Dose: 5,000 units Meropenem/Sodium Chloride (Merrem Iv 500 Mg/Ns 50 Ml) 500 mg in 50 mls @ 100 mls/hr IVPB Q12 MALA; Protocol Stop: 07/11/18 22:01 Last Admin: 07/03/18 10:08 Dose: 100 mls/hr Linezolid (Zyvox 600mg/300ml D5w) 600 mg in 300 mls @ 200 mls/hr IVPB Q12 MALA; Protocol Stop: 07/11/18 22:01 Last Admin: 07/03/18 10:04 Dose: 200 mls/hr Dextrose (Dextrose 5% In Water 1000 Ml) 1,000 mls @ 0 mls/hr IV .Q0M PRN; Protocol PRN Reason: Hypoglycemia Protocol Sodium Chloride (Sodium Chloride 0.9%) 1,000 mls @ 125 mls/hr IV .Q8H REPLACED BY [facility] Last Admin: 07/03/18 07:58 Dose: 125 mls/hr Insulin Human Lispro (Humalog Low) 0 units SC ACHS REPLACED BY [facility]; Protocol Last Admin: 07/03/18 12:34 Dose: 3 units Levetiracetam (Keppra) 500 mg PO BID REPLACED BY [facility] Last Admin: 07/03/18 10:06 Dose: 500 mg Megestrol Acetate (Megace) 40 mg PO DAILY REPLACED BY [facility] Last Admin: 07/03/18 10:02 Dose: 40 mg Metoprolol Succinate (Toprol Xl) 50 mg PO DAILY REPLACED BY [facility] Last Admin: 07/03/18 10:03 Dose: Not Given Ondansetron HCl (Zofran Inj) 4 mg IVP Q4H PRN PRN Reason: Nausea/Vomiting Last Admin: 07/03/18 02:21 Dose: 4 mg Pantoprazole Sodium (Protonix Ec Tab) 40 mg PO DAILY REPLACED BY [facility] Last Admin: 07/03/18 10:02 Dose: 40 mg Sodium Bicarbonate (Sodium Bicarbonate Tab) 1,300 mg PO QID REPLACED BY [facility] Last Admin: 07/03/18 13:14 Dose: 1,300 mg Vitamin B Complex/Vit C/Folic Acid (Nephro-Jenny) 1 tab PO 0800 REPLACED BY [facility] Results - Vital Signs Recent Vital Signs: Last Vital Signs Temp 98.4 F 07/03/18 12:48 Pulse 113 H 07/03/18 12:48 Resp 20 07/03/18 12:48 BP 95/55 L 07/03/18 12:48 Pulse Ox 100 07/03/18 09:00 - Labs Result Diagrams: 07/03/18 14:10 07/03/18 06:25 Labs: Laboratory Results - last 24 hr 07/02/18 07/02/18 07/02/18 16:15 16:15 16:15 WBC 13.4 H D RBC 2.63 L Hgb 7.8 L Hct 25.3 L MCV 96.2 MCH 29.7 MCHC 30.8 L RDW 14.5 Plt Count 360 MPV 9.6 Neut % (Auto) 74.5 H Lymph % (Auto) 11.8 L [place] % (Auto) 12.9 H Eos % (Auto) 0.7 L Baso % (Auto) 0.1 Lymph # (Auto) 1.6 [place] # (Auto) 1.7 H Eos # (Auto) 0.1 Baso # (Auto) 0.01 Absolute Neuts (auto) 9.96 H ESR PT 14.4 H INR 1.30 APTT 39.1 H pO2 VBG pH VBG pCO2 VBG HCO3 VBG Total CO2 VBG O2 Sat (Calc) VBG Base Excess VBG Potassium Glucose Lactate FiO2 Crit Value Called To Crit Value Called By Blood Gas Notified Time Sodium 141 Potassium 5.5 H Chloride 113 H Carbon Dioxide 15 L Anion Gap 19 BUN 34 H Creatinine 2.0 H Est GFR ( Amer) 31 Est GFR (Non-Af Amer) 25 POC Glucose (mg/dL) Random Glucose 93 Hemoglobin A1c Calcium 9.9 Phosphorus Magnesium Ferritin Total Bilirubin 0.5 AST 44 H D ALT 30 Alkaline Phosphatase 160 H Troponin I C-Reactive Protein Total Protein 8.6 H Albumin 4.3 Globulin 4.3 Albumin/Globulin Ratio 1.0 L Vitamin B12 Folate Venous Blood Potassium Urine Color Urine Appearance Urine pH Ur Specific [place] Urine Protein Urine Glucose (UA) Urine Ketones Urine Blood Urine Nitrate Urine Bilirubin Urine Urobilinogen Ur Leukocyte Esterase Urine RBC Urine WBC Ur Epithelial Cells 07/02/18 07/02/18 07/02/18 18:30 18:30 22:15 WBC RBC Hgb Hct MCV MCH MCHC RDW Plt Count MPV Neut % (Auto) Lymph % (Auto) [place] % (Auto) Eos % (Auto) Baso % (Auto) Lymph # (Auto) [place] # (Auto) Eos # (Auto) Baso # (Auto) Absolute Neuts (auto) ESR 148 H PT INR APTT pO2 VBG pH VBG pCO2 VBG HCO3 VBG Total CO2 VBG O2 Sat (Calc) VBG Base Excess VBG Potassium Glucose Lactate FiO2 Crit Value Called To Crit Value Called By Blood Gas Notified Time Sodium 143 Potassium 5.5 H Chloride 113 H Carbon Dioxide 17 L Anion Gap 19 BUN 34 H Creatinine 2.0 H Est GFR ( Amer) 31 Est GFR (Non-Af Amer) 25 POC Glucose (mg/dL) 191 H Random Glucose 67 L Hemoglobin A1c Calcium 10.0 Phosphorus Magnesium Ferritin 1680.0 Total Bilirubin AST ALT Alkaline Phosphatase Troponin I C-Reactive Protein 261.50 H Total Protein Albumin Globulin Albumin/Globulin Ratio Vitamin B12 914 Folate > 20.0 Venous Blood Potassium Urine Color Urine Appearance Urine pH Ur Specific [place] Urine Protein Urine Glucose (UA) Urine Ketones Urine Blood Urine Nitrate Urine Bilirubin Urine Urobilinogen Ur Leukocyte Esterase Urine RBC Urine WBC Ur Epithelial Cells 07/03/18 07/03/18 07/03/18 00:05 01:18 01:49 WBC RBC Hgb Hct MCV MCH MCHC RDW Plt Count MPV Neut % (Auto) Lymph % (Auto) [place] % (Auto) Eos % (Auto) Baso % (Auto) Lymph # (Auto) [place] # (Auto) Eos # (Auto) Baso # (Auto) Absolute Neuts (auto) ESR PT INR APTT pO2 86 H VBG pH 7.39 VBG pCO2 23.0 L VBG HCO3 13.9 L VBG Total CO2 14.6 L VBG O2 Sat (Calc) 97.8 H VBG Base Excess -9.0 L VBG Potassium 4.4 Glucose 217 H Lactate 3.3 H FiO2 21.0 Crit Value Called To Tamica villavicencio Crit Value Called By Yy Blood Gas Notified Time 200 Sodium 142.0 Potassium Chloride 110.0 H Carbon Dioxide Anion Gap BUN Creatinine Est GFR ( Amer) Est GFR (Non-Af Amer) POC Glucose (mg/dL) 236 H Random Glucose Hemoglobin A1c Calcium Phosphorus Magnesium Ferritin Total Bilirubin AST ALT Alkaline Phosphatase Troponin I C-Reactive Protein Total Protein Albumin Globulin Albumin/Globulin Ratio Vitamin B12 Folate Venous Blood Potassium 4.4 Urine Color Light yellow Urine Appearance Clear Urine pH 7.0 Ur Specific [place] 1.010 Urine Protein Trace H Urine Glucose (UA) Negative Urine Ketones Negative Urine Blood Negative Urine Nitrate Negative Urine Bilirubin Negative Urine Urobilinogen 0.2 Ur Leukocyte Esterase Trace H Urine RBC None Urine WBC 1 - 3 Ur Epithelial Cells 3 - 4 07/03/18 07/03/18 07/03/18 04:41 06:25 06:25 WBC 8.7 D RBC 2.38 L Hgb 7.0 L Hct 22.4 L MCV 94.1 MCH 29.4 MCHC 31.3 RDW 14.2 Plt Count 310 MPV 9.5 Neut % (Auto) Lymph % (Auto) [place] % (Auto) Eos % (Auto) Baso % (Auto) Lymph # (Auto) [place] # (Auto) Eos # (Auto) Baso # (Auto) Absolute Neuts (auto) ESR PT INR APTT pO2 VBG pH VBG pCO2 VBG HCO3 VBG Total CO2 VBG O2 Sat (Calc) VBG Base Excess VBG Potassium Glucose Lactate FiO2 Crit Value Called To Crit Value Called By Blood Gas Notified Time Sodium 142 Potassium 4.3 Chloride 115 H Carbon Dioxide 14 L Anion Gap 17 BUN 25 H Creatinine 1.9 H Est GFR ( Amer) 33 Est GFR (Non-Af Amer) 27 POC Glucose (mg/dL) 474 H* Random Glucose 169 H Hemoglobin A1c Calcium 9.8 Phosphorus 3.6 Magnesium 2.2 Ferritin Total Bilirubin 0.4 AST 42 H ALT 38 Alkaline Phosphatase 150 H Troponin I 0.05 D C-Reactive Protein Total Protein 7.3 Albumin 3.7 Globulin 3.6 Albumin/Globulin Ratio 1.0 L Vitamin B12 Folate Venous Blood Potassium Urine Color Urine Appearance Urine pH Ur Specific [place] Urine Protein Urine Glucose (UA) Urine Ketones Urine Blood Urine Nitrate Urine Bilirubin Urine Urobilinogen Ur Leukocyte Esterase Urine RBC Urine WBC Ur Epithelial Cells 07/03/18 07/03/18 07/03/18 06:25 06:59 07:27 WBC RBC Hgb Hct MCV MCH MCHC RDW Plt Count MPV Neut % (Auto) Lymph % (Auto) [place] % (Auto) Eos % (Auto) Baso % (Auto) Lymph # (Auto) [place] # (Auto) Eos # (Auto) Baso # (Auto) Absolute Neuts (auto) ESR PT INR APTT pO2 94 H VBG pH 7.35 VBG pCO2 24.0 L VBG HCO3 13.2 L VBG Total CO2 13.9 L VBG O2 Sat (Calc) 98.0 H VBG Base Excess -10.5 L VBG Potassium 4.1 Glucose 172 H Lactate 3.1 H FiO2 21.0 Crit Value Called To Ginger herrera Crit Value Called By Tanvi Blood Gas Notified Time 645 Sodium 143.0 Potassium Chloride 112.0 H Carbon Dioxide Anion Gap BUN Creatinine Est GFR ( Amer) Est GFR (Non-Af Amer) POC Glucose (mg/dL) 109 Random Glucose Hemoglobin A1c 6.2 Calcium Phosphorus Magnesium Ferritin Total Bilirubin AST ALT Alkaline Phosphatase Troponin I C-Reactive Protein Total Protein Albumin Globulin Albumin/Globulin Ratio Vitamin B12 Folate Venous Blood Potassium 4.1 Urine Color Urine Appearance Urine pH Ur Specific [place] Urine Protein Urine Glucose (UA) Urine Ketones Urine Blood Urine Nitrate Urine Bilirubin Urine Urobilinogen Ur Leukocyte Esterase Urine RBC Urine WBC Ur Epithelial Cells 07/03/18 07/03/18 07/03/18 11:15 11:54 14:10 WBC 8.7 RBC 1.82 L Hgb 5.4 L* Hct 17.2 L* MCV 94.5 MCH 29.7 MCHC 31.4 RDW 14.1 Plt Count 274 MPV 9.0 Neut % (Auto) Lymph % (Auto) [place] % (Auto) Eos % (Auto) Baso % (Auto) Lymph # (Auto) [place] # (Auto) Eos # (Auto) Baso # (Auto) Absolute Neuts (auto) ESR PT INR APTT pO2 49 VBG pH 7.38 VBG pCO2 26.0 L VBG HCO3 15.4 L VBG Total CO2 16.2 L VBG O2 Sat (Calc) 88.6 H VBG Base Excess -8.0 L VBG Potassium 4.4 Glucose 175 H Lactate 1.5 FiO2 21.0 Crit Value Called To Peg schilling Crit Value Called By Michi Blood Gas Notified Time 1130 Sodium 142.0 Potassium Chloride 113.0 H Carbon Dioxide Anion Gap BUN Creatinine Est GFR ( Amer) Est GFR (Non-Af Amer) POC Glucose (mg/dL) 274 H Random Glucose Hemoglobin A1c Calcium Phosphorus Magnesium Ferritin Total Bilirubin AST ALT Alkaline Phosphatase Troponin I C-Reactive Protein Total Protein Albumin Globulin Albumin/Globulin Ratio Vitamin B12 Folate Venous Blood Potassium 4.4 Urine Color Urine Appearance Urine pH Ur Specific [place] Urine Protein Urine Glucose (UA) Urine Ketones Urine Blood Urine Nitrate Urine Bilirubin Urine Urobilinogen Ur Leukocyte Esterase Urine RBC Urine WBC Ur Epithelial Cells
[2018-07-03 16:48] LABS: IRON 10 ug/dL (45-180); TOTAL IRON BINDING CAPACITY 154 ug/dL (265-497)
[2018-07-03 16:50] LABS: % IRON SATURATION 7 % (20-55)
[2018-07-03 20:00] LABS: EOS # 0.3 (0.0-0.7); LYMPH # 0.5 (1.2-3.4); LYMPH % 7.6 % (22.0-35.0); MEAN CELL VOLUME 93.8 fl (80.0-105.0); MEAN CORPUSCULAR HEMOGLOBIN 28.9 pg (25.0-35.0); MEAN CORPUSCULAR HGB CONC 30.8 g/dl (31.0-37.0); MEAN PLATELET VOLUME 8.9 fl (7.0-11.0); MONO # 0.3 (0.1-0.6); MONO % 4.2 % (1.0-6.0); RBC 2.11 {null, 10^6/uL} (3.5-6.1); RED CELL DISTRIBUTION WIDTH 14.3 % (11.5-14.5); WHITE BLOOD COUNT 6.7 {null, 10^3/uL} (4.5-11.0)
[2018-07-03 20:07] LABS: HEMOGLOBIN 6.1 g/dL (12.0-16.0)
[2018-07-03 22:45] LABS: PH,URINE 7.5 (4.7-8.0); URINE BILIRUBIN NEGATIVE (NEGATIVE); URINE BLOOD TRACE-LYSED (NEGATIVE); URINE GLUCOSE (UA) NEGATIVE (NEGATIVE); URINE LEUKOCYTE ESTERASE NEGATIVE Leu/uL (NEGATIVE); URINE PROTEIN TRACE mg/dL (<30 mg/dL); URINE UROBILINOGEN 0.2 E.U./dL (<1 E.U./dL)
[2018-07-03 22:48] LABS: URINE APPEARANCE CLEAR (CLEAR); URINE COLOR YELLOW (YELLOW)
[2018-07-03 22:49] LABS: URINE BACTERIA FEW /hpf
[2018-07-04] MEDS: MEROPENEM 500 MG in NS 500 MG/50 ML BAG IVPB SCH ×3 (00:32→22:15)
[2018-07-04] MEDS: levoFLOXacin 250 mg in D5W 250 MG/50 ML BAG IVPB SCH ×2 (00:32→10:05)
[2018-07-04] MEDS: Linezolid 600 mg in D5W 300 ml 600 MG/300 ML BAG IVPB SCH ×3 (00:32→22:15)
--- NOTE | 2018-07-04 04:31 | CP.PCM.PN ---
Subjective - Date & Time of Evaluation Date of Evaluation: 07/04/18 Time of Evaluation: 04:30 - Subjective Subjective: Seen earlier CBC ordered-post transfusion. I was asked to co-sign order for CBC. Objective - Vital Signs/Intake and Output Vital Signs (last 24 hours): Temp Pulse Resp BP Pulse Ox 97.3 F L 113 H 18 136/66 96 07/04/18 00:35 07/04/18 02:00 07/04/18 00:35 07/04/18 00:35 07/04/18 00:01 Intake and Output: 07/03/18 07/04/18 18:59 06:59 Intake Total 2385 1173 Balance 2385 1173 - Medications Medications: Current Medications Acetaminophen (Tylenol 650 Mg Supp) 650 mg RC Q4H PRN PRN Reason: Fever >100.4 F Aspirin (Ecotrin) 81 mg PO DAILY [facility] Last Admin: 07/03/18 10:01 Dose: 81 mg Cyanocobalamin (Vitamin B12 1000 Mcg Tab) 500 mcg PO DAILY [facility] Last Admin: 07/03/18 10:04 Dose: 500 mcg Darbepoetin Brown (Aranesp) 100 mcg SC QWK [facility] Last Admin: 07/03/18 11:04 Dose: 100 mcg Dextrose (Dextrose 50% Inj) 0 ml IV STAT PRN; Protocol PRN Reason: Hypoglycemia Protocol Ferrous Gluconate (Fergon) 324 mg PO TID [facility] Last Admin: 07/03/18 17:03 Dose: 324 mg Heparin Sodium (Porcine) (Heparin) 5,000 units SC Q8 MALA; Protocol Last Admin: 07/03/18 13:14 Dose: 5,000 units Meropenem/Sodium Chloride (Merrem Iv 500 Mg/Ns 50 Ml) 500 mg in 50 mls @ 100 mls/hr IVPB Q12 MALA; Protocol Stop: 07/11/18 22:01 Last Admin: 07/04/18 00:32 Dose: 100 mls/hr Linezolid (Zyvox 600mg/300ml D5w) 600 mg in 300 mls @ 200 mls/hr IVPB Q12 MALA; Protocol Stop: 07/11/18 22:01 Last Admin: 07/04/18 00:32 Dose: 200 mls/hr Dextrose (Dextrose 5% In Water 1000 Ml) 1,000 mls @ 0 mls/hr IV .Q0M PRN; Protocol PRN Reason: Hypoglycemia Protocol Sodium Chloride (Sodium Chloride 0.9%) 1,000 mls @ 125 mls/hr IV .Q8H [facility] Last Admin: 07/03/18 23:42 Dose: Not Given Levofloxacin/Dextrose (Levaquin 250mg) 250 mg in 50 mls @ 50 mls/hr IVPB DAILY [facility]; Protocol Stop: 07/08/18 19:58 Last Admin: 07/04/18 00:32 Dose: 50 mls/hr Insulin Human Lispro (Humalog Low) 0 units SC ACHS [facility]; Protocol Last Admin: 07/03/18 22:00 Dose: Not Given Levetiracetam (Keppra) 500 mg PO BID [facility] Last Admin: 07/03/18 17:03 Dose: 500 mg Megestrol Acetate (Megace) 40 mg PO DAILY [facility] Last Admin: 07/03/18 10:02 Dose: 40 mg Ondansetron HCl (Zofran Inj) 4 mg IVP Q4H PRN PRN Reason: Nausea/Vomiting Last Admin: 07/03/18 02:21 Dose: 4 mg Pantoprazole Sodium (Protonix Inj) 40 mg IVP DAILY [facility] Last Admin: 07/03/18 17:03 Dose: 40 mg Sodium Bicarbonate (Sodium Bicarbonate Tab) 1,300 mg PO QID [facility] Last Admin: 07/04/18 00:32 Dose: 1,300 mg Vitamin B Complex/Vit C/Folic Acid (Nephro-Jenny) 1 tab PO 0800 [facility] - Labs Labs: 07/03/18 19:53 07/03/18 06:25 PT 14.4 SECONDS (9.4-12.5) H 07/02/18 16:15 INR 1.30 07/02/18 16:15 APTT 39.1 Seconds (26.9-38.3) H 07/02/18 16:15
[2018-07-04 04:49] LABS: HEMOGLOBIN 7.8 g/dL (12.0-16.0); MEAN CORPUSCULAR HEMOGLOBIN 28.8 pg (25.0-35.0); MEAN CORPUSCULAR HGB CONC 31.7 g/dl (31.0-37.0); MEAN PLATELET VOLUME 9.2 fl (7.0-11.0); RBC 2.71 {null, 10^6/uL} (3.5-6.1); RED CELL DISTRIBUTION WIDTH 15.5 % (11.5-14.5); WHITE BLOOD COUNT 4.7 {null, 10^3/uL} (4.5-11.0)
[2018-07-04 05:12] LABS: MEAN CELL VOLUME 90.8 fl (80.0-105.0)
[2018-07-04 05:25] LABS: ALB/GLOB RATIO 0.9 (1.1-1.8); ALBUMIN 3.1 g/dL (3.0-4.8); CALCIUM 8.8 mg/dL (8.4-10.5)
--- NOTE | 2018-07-04 05:25 | CON ---
DATE: 07/03/2018 LOCATION: The patient is in room 262, bed 1. CHIEF COMPLAINT: Lower extremity infection times several days. HISTORY OF PRESENT ILLNESS: This is a 62-year-old female with hypertension, cataract, coronary artery disease, GERD, pseudomembranous colitis, kidney disease, hyperthyroidism, right foot cellulitis with group strep, MRSA, E. coli, urinary tract infection, and chronic osteomyelitis, diabetes mellitus, peripheral vascular disease, who was admitted with diagnosis of cellulitis and . REVIEW OF SYSTEMS: A 12-point review of systems was performed. PAST MEDICAL HISTORY: Significant for hypertension, kidney disease, coronary artery disease, GERD, pseudomembranous colitis, chronic osteomyelitis, peripheral vascular disease, diabetes mellitus, cholecystectomy. PAST SURGICAL HISTORY: Significant for cholecystectomy, . ALLERGIES: CEFTRIAXONE, CLINDAMYCIN, PENICILLIN, SULFA, TRIMETHOPRIM, QUESTIONABLE RASH. PHYSICAL EXAMINATION GENERAL: The patient is in bed, seen earlier this morning in room 262. VITAL SIGNS: Temperature of 98, T-max is 103, blood pressure is 130/60 with low of 93/53 and pulse of 123. HEENT: Unremarkable. NECK: Supple. LUNGS: Decreased breath sounds. HEART: Normal S1, S2. ABDOMEN: Soft and nontender. EXTREMITIES: Reveal the right heel with mild erythema, no discharge. The left foot has chronic changes. MEDICATIONS: Noted at home. LABORATORY DATA: Blood cultures are negative. The patient had an x-ray of foot, no evidence of osteomyelitis. The patient also had a CAT scan of the abdomen and pelvis, results are pending. The patient had a chest x-ray consolidation at left lung base consistent with pneumonia. Dr. Reyes's note is reviewed, consultation. The patient's creatinine is 2. Urinalysis is noted. ASSESSMENT AND PLAN: A 62-year-old female with multiple medical comorbidities with recent hospitalizations, wound care visits, admitted with sepsis of left-sided healthcare-associated -pneumonia, negative blood cultures, MULTIPLE ALLERGIES and right heel cellulitis. We order procalcitonin. Urine for legionella antigen. We treat the patient with Zyvox and meropenem. We will add a typical coverage, pending CT of the abdomen. The patient's EKG does show QTC of 438. Will add IV Levaquin. Adjusted for renal insufficiency. Will follow with you. The patient has had an HIV test in 2014, was negative. Carroll Castellano MD
--- NOTE | 2018-07-04 08:59 | CP.PCM.CON ---
<Becki Yao - Last Filed: 07/04/18 13:40> History of Present Illness - History of Present Illness History of Present Illness: Gastroenterology Fellow/PGY6 Consult Note 62 year old female with PMH of anemia requiring transfusions, CKD Stage IV, PVD with multiple leg wounds/osteomyelitis/toe amputations, Diabetes, and HTN presenting with non-healing toe ulcer and heel cellulitis. Patient notes chronic wounds for many years over the years and she was sent to ER by podiatry after recent outpatient evaluation. GI consultation for anemia. Denies nausea, vomiting, hematemesis, abdominal pain, diarrhea, constipation, melena, hematochezia, recent unintentional weight loss. Prior EGD 06/2017 showed H. pylori negative gastritis and a 3cm pre-pyloric pedunculated hyperplastic polyp s/p EMR. Patient endorses prior colonoscopy in 2016 to be noral with recommended five year surveillance. Family History- denies stomach cancer, colon cancer Social History- denies tobacco, alcohol, illicit drug use Surgical History- toe amputations, cholecystectomy, B/L cataract removal, C- section, Right 2nd metatarsal revision amputation 04/2017 left and Right 2nd and 4th metastarsal amputations 08/2012, 2011 right septic joint- implant removal Review of Systems - Review of Systems Review of Systems: 12-point review of systems negative except for as above Past Patient History - Infectious Disease Hx of Infectious Diseases: None - Tetanus Immunizations Tetanus Immunization: Unknown - Past Medical History & Family History Past Medical History?: Yes - Past Social History Smoking Status: Never Smoked - CARDIAC Hx Cardiac Disorders: Yes Hx Hypertension: Yes Hx Pacemaker: No - PULMONARY Hx Respiratory Disorders: No - NEUROLOGICAL Hx Neurological Disorder: Yes (headaches) Other/Comment: 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 - HEENT Hx HEENT Problems: Yes Hx Cataracts: Yes (sx both eyes) - RENAL Hx Chronic Kidney Disease: Yes Other/Comment: chronic kidney disease - ENDOCRINE/METABOLIC Hx Endocrine Disorders: Yes (THYROID MASS) Hx Diabetes Mellitus Type 2: Yes Hx Hyperthyroidism: Yes - HEMATOLOGICAL/ONCOLOGICAL Hx Blood Disorders: Yes Hx Anemia: Yes (HAD BLOOD TRANSFUSIONS.) Hx Cancer: No - INTEGUMENTARY Hx Dermatological Problems: Yes (bilateral diabetic foot ulcers) Other/Comment: left foot redness, broken blister to left great toe 2cm round, red and yellow slough noted, small black round wound to left 4th toe .3cm, left foot 2 small red wounds .3 cm, small wound to ball of left foot dry brown .5cm round, dry flakey skin to both feet,1.5cm x .5cm dry red wiound to ball of right foot, dry scabs to lower right leg (ALL FROM PREVIOUS TRIAGE NOT FROM 04/10/17). 07-02-18 RIGHT HEEL WITH REDNESS,HAS A SMALL 0.6 CM SLOUGH .SURROUNDING AREA HAS + ERYTHEMA. RIGHT LATERAL OUTER MALLEOLAR BONE AREA HAS A LARGE ROUND REDDENED SKIN,+_ ERYTHEMA MEASURES 4 X 5.5 CM WITH CENTER OF WOUND HAS SLOUGH MEASURES 1 X 0.6 CM DM WOUND. LEFT FOOT MULTIPLE TOE AMPUTATED. - MUSCULOSKELETAL/RHEUMATOLOGICAL Hx Musculoskeletal Disorders: Yes Hx Arthritis: Yes Hx Falls: Yes Hx Osteoarthritis: Yes Hx Osteomyelitis: Yes Hx Unsteady Gait: Yes - GASTROINTESTINAL Hx Gastrointestinal Disorders: Yes Hx Gastroesophageal Reflux: Yes - GENITOURINARY/GYNECOLOGICAL Hx Genitourinary Disorders: No - PSYCHIATRIC Hx Emotional Abuse: No Hx Physical Abuse: No Hx Substance Use: No - SURGICAL HISTORY Hx Surgeries: Yes (BILATERAL TOES AMPUTATED,RIGHT FOOT 1 TOE AMPUTATED.) Hx Cholecystectomy: Yes Hx Mastectomy: No Hx Orthopedic Surgery: Yes Other/Comment: BIALTERAL CATARACT SX, - ANESTHESIA Hx Anesthesia: Yes Hx Anesthesia Reactions: No Hx Malignant Hyperthermia: No Meds Allergies/Adverse Reactions: Allergies Allergy/AdvReac Type Severity Reaction Status Date / Time ceftriaxone Allergy SHORTNESS Verified 07/02/18 19:10 OF BREATH clindamycin Allergy RASH Verified 07/02/18 19:10 Penicillins Allergy SHORTNESS Verified 07/02/18 19:10 OF BREATH sulfamethoxazole Allergy RASH Verified 07/02/18 19:10 [From Bactrim] trimethoprim [From Bactrim] Allergy RASH Verified 07/02/18 19:10 - Medications Medications: Current Medications Acetaminophen (Tylenol 650 Mg Supp) 650 mg RC Q4H PRN PRN Reason: Fever >100.4 F Aspirin (Ecotrin) 81 mg PO DAILY [facility] Last Admin: 07/03/18 10:01 Dose: 81 mg Cyanocobalamin (Vitamin B12 1000 Mcg Tab) 500 mcg PO DAILY [facility] Last Admin: 07/03/18 10:04 Dose: 500 mcg Darbepoetin Brown (Aranesp) 100 mcg SC QWK [facility] Last Admin: 07/03/18 11:04 Dose: 100 mcg Dextrose (Dextrose 50% Inj) 0 ml IV STAT PRN; Protocol PRN Reason: Hypoglycemia Protocol Ferrous Gluconate (Fergon) 324 mg PO TID [facility] Last Admin: 07/03/18 17:03 Dose: 324 mg Heparin Sodium (Porcine) (Heparin) 5,000 units SC Q8 [facility]; Protocol Last Admin: 07/03/18 13:14 Dose: 5,000 units Meropenem/Sodium Chloride (Merrem Iv 500 Mg/Ns 50 Ml) 500 mg in 50 mls @ 100 mls/hr IVPB Q12 [facility]; Protocol Stop: 07/11/18 22:01 Last Admin: 07/04/18 00:32 Dose: 100 mls/hr Linezolid (Zyvox 600mg/300ml D5w) 600 mg in 300 mls @ 200 mls/hr IVPB Q12 [facility]; Protocol Stop: 07/11/18 22:01 Last Admin: 07/04/18 00:32 Dose: 200 mls/hr Dextrose (Dextrose 5% In Water 1000 Ml) 1,000 mls @ 0 mls/hr IV .Q0M PRN; Protocol PRN Reason: Hypoglycemia Protocol Sodium Chloride (Sodium Chloride 0.9%) 1,000 mls @ 125 mls/hr IV .Q8H [facility] Last Admin: 07/03/18 23:42 Dose: Not Given Levofloxacin/Dextrose (Levaquin 250mg) 250 mg in 50 mls @ 50 mls/hr IVPB DAILY [facility]; Protocol Stop: 07/08/18 19:58 Last Admin: 07/04/18 00:32 Dose: 50 mls/hr Insulin Human Lispro (Humalog Low) 0 units SC ACHS [facility]; Protocol Last Admin: 07/03/18 22:00 Dose: Not Given Levetiracetam (Keppra) 500 mg PO BID [facility] Last Admin: 07/03/18 17:03 Dose: 500 mg Megestrol Acetate (Megace) 40 mg PO DAILY [facility] Last Admin: 07/03/18 10:02 Dose: 40 mg Ondansetron HCl (Zofran Inj) 4 mg IVP Q4H PRN PRN Reason: Nausea/Vomiting Last Admin: 04/24/19 02:21 Dose: 4 mg Pantoprazole Sodium (Protonix Inj) 40 mg IVP DAILY [facility] Last Admin: 07/03/18 17:03 Dose: 40 mg Sodium Bicarbonate (Sodium Bicarbonate Tab) 1,300 mg PO QID [facility] Last Admin: 07/04/18 00:32 Dose: 1,300 mg Vitamin B Complex/Vit C/Folic Acid (Nephro-Jenny) 1 tab PO 0800 [facility] Physical Exam - Constitutional Appears: Non-toxic, No Acute Distress - Head Exam Head Exam: ATRAUMATIC, NORMOCEPHALIC - Eye Exam Eye Exam: EOMI, PERRL. absent: Scleral icterus Pupil Exam: PERRL. absent: Miosis, Mydriatic - ENT Exam ENT Exam: Mucous Membranes Moist, Normal Oropharynx - Neck Exam Neck exam: Positive for: Full Rom, Normal Inspection - Respiratory Exam Respiratory Exam: Clear to Auscultation Bilateral. absent: Rales, Rhonchi, Wheezes - Cardiovascular Exam Cardiovascular Exam: RRR, +S1, +S2. absent: Gallop, Rubs - GI/Abdominal Exam GI & Abdominal Exam: Normal Bowel Sounds, Soft. absent: Diminished Bowel Sounds, Distended, Firm, Guarding, Organomegaly, Rebound, Rigid, Tenderness - Rectal Exam Additional comments: patient refused rectal exam, stating she observes stool- brown color in last two days - Extremities Exam Additional comments: multiple B/L toe amputations, right ankle/heel ulcer with bandage in place - Neurological Exam Neurological exam: Alert - Psychiatric Exam Psychiatric exam: Normal Affect, Normal Mood - Skin Skin Exam: Dry, Normal Color, Warm Results - Vital Signs Recent Vital Signs: Last Vital Signs Temp 98.3 F 07/04/18 06:00 Pulse 112 H 07/04/18 06:00 Resp 19 07/04/18 06:00 BP 127/63 07/04/18 06:00 Pulse Ox 96 07/04/18 00:01 - Labs Result Diagrams: 07/04/18 04:20 07/04/18 04:20 Labs: Laboratory Results - last 24 hr 07/02/18 07/03/18 07/03/18 18:30 06:59 07:27 WBC RBC Hgb Hct MCV MCH MCHC RDW Plt Count MPV Neut % (Auto) Lymph % (Auto) [place] % (Auto) Eos % (Auto) Baso % (Auto) Lymph # (Auto) [place] # (Auto) Eos # (Auto) Baso # (Auto) Absolute Neuts (auto) pO2 VBG pH VBG pCO2 VBG HCO3 VBG Total CO2 VBG O2 Sat (Calc) VBG Base Excess VBG Potassium Sodium Chloride Glucose Lactate FiO2 Crit Value Called To Crit Value Called By Blood Gas Notified Time Potassium Carbon Dioxide Anion Gap BUN Creatinine Est GFR ( Amer) Est GFR (Non-Af Amer) POC Glucose (mg/dL) 109 Random Glucose Hemoglobin A1c 6.2 Calcium Iron TIBC % Saturation Ferritin 1680.0 Total Bilirubin AST ALT Alkaline Phosphatase C-Reactive Protein 261.50 H Total Protein Albumin Globulin Albumin/Globulin Ratio Vitamin B12 914 Folate > 20.0 Procalcitonin Venous Blood Potassium Urine Color Urine Appearance Urine pH Ur Specific [place] Urine Protein Urine Glucose (UA) Urine Ketones Urine Blood Urine Nitrate Urine Bilirubin Urine Urobilinogen Ur Leukocyte Esterase Urine RBC Urine WBC Ur Epithelial Cells Urine Bacteria Blood Type Antibody Screen Antibody Identification KAREL, Poly Interpret Crossmatch BBK History Checked 07/03/18 07/03/18 07/03/18 11:15 11:54 14:00 WBC RBC Hgb Hct MCV MCH MCHC RDW Plt Count MPV Neut % (Auto) Lymph % (Auto) [place] % (Auto) Eos % (Auto) Baso % (Auto) Lymph # (Auto) [place] # (Auto) Eos # (Auto) Baso # (Auto) Absolute Neuts (auto) pO2 49 VBG pH 7.38 VBG pCO2 26.0 L VBG HCO3 15.4 L VBG Total CO2 16.2 L VBG O2 Sat (Calc) 88.6 H VBG Base Excess -8.0 L VBG Potassium 4.4 Sodium 142.0 Chloride 113.0 H Glucose 175 H Lactate 1.5 FiO2 21.0 Crit Value Called To Peg schilling Crit Value Called By Michi Blood Gas Notified Time 1130 Potassium Carbon Dioxide Anion Gap BUN Creatinine Est GFR ( Amer) Est GFR (Non-Af Amer) POC Glucose (mg/dL) 274 H Random Glucose Hemoglobin A1c Calcium Iron 10 L TIBC 154 L % Saturation 7 L Ferritin Total Bilirubin AST ALT Alkaline Phosphatase C-Reactive Protein Total Protein Albumin Globulin Albumin/Globulin Ratio Vitamin B12 Folate Procalcitonin Venous Blood Potassium 4.4 Urine Color Urine Appearance Urine pH Ur Specific [place] Urine Protein Urine Glucose (UA) Urine Ketones Urine Blood Urine Nitrate Urine Bilirubin Urine Urobilinogen Ur Leukocyte Esterase Urine RBC Urine WBC Ur Epithelial Cells Urine Bacteria Blood Type Antibody Screen Antibody Identification KAREL, Poly Interpret Crossmatch BBK History Checked 07/03/18 07/03/18 07/03/18 14:10 14:10 17:11 WBC 8.7 RBC 1.82 L Hgb 5.4 L* Hct 17.2 L* MCV 94.5 MCH 29.7 MCHC 31.4 RDW 14.1 Plt Count 274 MPV 9.0 Neut % (Auto) Lymph % (Auto) [place] % (Auto) Eos % (Auto) Baso % (Auto) Lymph # (Auto) [place] # (Auto) Eos # (Auto) Baso # (Auto) Absolute Neuts (auto) pO2 VBG pH VBG pCO2 VBG HCO3 VBG Total CO2 VBG O2 Sat (Calc) VBG Base Excess VBG Potassium Sodium Chloride Glucose Lactate FiO2 Crit Value Called To Crit Value Called By Blood Gas Notified Time Potassium Carbon Dioxide Anion Gap BUN Creatinine Est GFR ( Amer) Est GFR (Non-Af Amer) POC Glucose (mg/dL) Random Glucose Hemoglobin A1c Calcium Iron TIBC % Saturation Ferritin Total Bilirubin AST ALT Alkaline Phosphatase C-Reactive Protein Total Protein Albumin Globulin Albumin/Globulin Ratio Vitamin B12 Folate Procalcitonin 53.85 H Venous Blood Potassium Urine Color Urine Appearance Urine pH Ur Specific [place] Urine Protein Urine Glucose (UA) Urine Ketones Urine Blood Urine Nitrate Urine Bilirubin Urine Urobilinogen Ur Leukocyte Esterase Urine RBC Urine WBC Ur Epithelial Cells Urine Bacteria Blood Type B POSITIVE Antibody Screen Positive Antibody Identification NON SPECIFIC WARM ANTIBODY KAREL, Poly Interpret Positive H Crossmatch See Detail BBK History Checked Patient has bt 07/03/18 07/03/18 07/03/18 17:21 19:53 21:33 WBC 6.7 D RBC 2.11 L Hgb 6.1 L* Hct 19.8 L* MCV 93.8 MCH 28.9 MCHC 30.8 L RDW 14.3 Plt Count 276 MPV 8.9 Neut % (Auto) 84.2 H Lymph % (Auto) 7.6 L [place] % (Auto) 4.2 Eos % (Auto) 4.0 Baso % (Auto) 0.0 Lymph # (Auto) 0.5 L [place] # (Auto) 0.3 Eos # (Auto) 0.3 Baso # (Auto) 0.00 Absolute Neuts (auto) 5.67 pO2 VBG pH VBG pCO2 VBG HCO3 VBG Total CO2 VBG O2 Sat (Calc) VBG Base Excess VBG Potassium Sodium Chloride Glucose Lactate FiO2 Crit Value Called To Crit Value Called By Blood Gas Notified Time Potassium Carbon Dioxide Anion Gap BUN Creatinine Est GFR ( Amer) Est GFR (Non-Af Amer) POC Glucose (mg/dL) 124 H 104 Random Glucose Hemoglobin A1c Calcium Iron TIBC % Saturation Ferritin Total Bilirubin AST ALT Alkaline Phosphatase C-Reactive Protein Total Protein Albumin Globulin Albumin/Globulin Ratio Vitamin B12 Folate Procalcitonin Venous Blood Potassium Urine Color Urine Appearance Urine pH Ur Specific [place] Urine Protein Urine Glucose (UA) Urine Ketones Urine Blood Urine Nitrate Urine Bilirubin Urine Urobilinogen Ur Leukocyte Esterase Urine RBC Urine WBC Ur Epithelial Cells Urine Bacteria Blood Type Antibody Screen Antibody Identification KAREL, Poly Interpret Crossmatch BBK History Checked 07/03/18 07/04/18 07/04/18 22:26 04:20 04:20 WBC 4.7 D RBC 2.71 L Hgb 7.8 L Hct 24.6 L MCV 90.8 D MCH 28.8 MCHC 31.7 RDW 15.5 H Plt Count 263 MPV 9.2 Neut % (Auto) Lymph % (Auto) [place] % (Auto) Eos % (Auto) Baso % (Auto) Lymph # (Auto) [place] # (Auto) Eos # (Auto) Baso # (Auto) Absolute Neuts (auto) pO2 VBG pH VBG pCO2 VBG HCO3 VBG Total CO2 VBG O2 Sat (Calc) VBG Base Excess VBG Potassium Sodium 143 Chloride 115 H Glucose Lactate FiO2 Crit Value Called To Crit Value Called By Blood Gas Notified Time Potassium 3.9 Carbon Dioxide 17 L Anion Gap 14 BUN 22 H Creatinine 1.7 H Est GFR ( Amer) 37 Est GFR (Non-Af Amer) 31 POC Glucose (mg/dL) Random Glucose 181 H Hemoglobin A1c Calcium 8.8 Iron TIBC % Saturation Ferritin Total Bilirubin 1.2 AST 44 H ALT 45 Alkaline Phosphatase 122 C-Reactive Protein Total Protein 6.4 Albumin 3.1 Globulin 3.3 Albumin/Globulin Ratio 0.9 L Vitamin B12 Folate Procalcitonin Venous Blood Potassium Urine Color Yellow Urine Appearance Clear Urine pH 7.5 Ur Specific [place] 1.010 Urine Protein Trace H Urine Glucose (UA) Negative Urine Ketones Negative Urine Blood Trace-lysed H Urine Nitrate Negative Urine Bilirubin Negative Urine Urobilinogen 0.2 Ur Leukocyte Esterase Negative Urine RBC 1 - 3 H Urine WBC 2 - 5 Ur Epithelial Cells 1 - 3 Urine Bacteria Few Blood Type Antibody Screen Antibody Identification KAREL, Poly Interpret Crossmatch BBK History Checked 07/04/18 07:43 WBC RBC Hgb Hct MCV MCH MCHC RDW Plt Count MPV Neut % (Auto) Lymph % (Auto) [place] % (Auto) Eos % (Auto) Baso % (Auto) Lymph # (Auto) [place] # (Auto) Eos # (Auto) Baso # (Auto) Absolute Neuts (auto) pO2 VBG pH VBG pCO2 VBG HCO3 VBG Total CO2 VBG O2 Sat (Calc) VBG Base Excess VBG Potassium Sodium Chloride Glucose Lactate FiO2 Crit Value Called To Crit Value Called By Blood Gas Notified Time Potassium Carbon Dioxide Anion Gap BUN Creatinine Est GFR ( Amer) Est GFR (Non-Af Amer) POC Glucose (mg/dL) 106 Random Glucose Hemoglobin A1c Calcium Iron TIBC % Saturation Ferritin Total Bilirubin AST ALT Alkaline Phosphatase C-Reactive Protein Total Protein Albumin Globulin Albumin/Globulin Ratio Vitamin B12 Folate Procalcitonin Venous Blood Potassium Urine Color Urine Appearance Urine pH Ur Specific [place] Urine Protein Urine Glucose (UA) Urine Ketones Urine Blood Urine Nitrate Urine Bilirubin Urine Urobilinogen Ur Leukocyte Esterase Urine RBC Urine WBC Ur Epithelial Cells Urine Bacteria Blood Type Antibody Screen Antibody Identification KAREL, Poly Interpret Crossmatch BBK History Checked Assessment & Plan - Assessment and Plan (Free Text) Assessment: 62 year old female with PMH of anemia requiring transfusions, CKD Stage IV, PVD with multiple leg wounds/osteomyelitis/toe amputations, Diabetes, and HTN presenting with non-healing toe ulcer and heel cellulitis. GI consultation for anemia. Prior EGD 06/2017 showed H. pylori negative gastritis and a 3cm pre- pyloric pedunculated hyperplastic polyp s/p EMR. Patient endorses prior colonoscopy in 2017 to be normal with recommended five year surveillance. Plan: -no overt signs of GI blood loss -episode of bilious vomitus yesterday AM without signs of blood loss -last bowel movement brown in last 36 hours -H/H appropriate response to transfusion -iron 10, ferritin 1680 -obtain FOBT; FOBT negative 01/2018 -required transfusion -no plan for endoscopic evaluation at present assessment -follow up hematology evaluation and recommendation -follow up nephrology and infectious disease recommendations -will benefit from elective follow up for capsule endoscopy and review of prior colonoscopy performed two years ago -continue medical optimization, will follow clinical course <Sebastian Soto - Last Filed: 07/04/18 19:12> Meds - Medications Medications: Current Medications Acetaminophen (Tylenol 650 Mg Supp) 650 mg RC Q4H PRN PRN Reason: Fever >100.4 F Aspirin (Ecotrin) 81 mg PO DAILY [facility] Last Admin: 07/04/18 09:58 Dose: 81 mg Cyanocobalamin (Vitamin B12 1000 Mcg Tab) 500 mcg PO DAILY [facility] Last Admin: 07/04/18 09:57 Dose: 500 mcg Darbepoetin Brown (Aranesp) 100 mcg SC QWK [facility] Last Admin: 07/03/18 11:04 Dose: 100 mcg Dextrose (Dextrose 50% Inj) 0 ml IV STAT PRN; Protocol PRN Reason: Hypoglycemia Protocol Ferrous Gluconate (Fergon) 324 mg PO TID [facility] Last Admin: 07/04/18 18:14 Dose: 324 mg Heparin Sodium (Porcine) (Heparin) 5,000 units SC Q8 [facility]; Protocol Last Admin: 07/03/18 13:14 Dose: 5,000 units Meropenem/Sodium Chloride (Merrem Iv 500 Mg/Ns 50 Ml) 500 mg in 50 mls @ 100 mls/hr IVPB Q12 [facility]; Protocol Stop: 07/11/18 22:01 Last Admin: 07/04/18 09:51 Dose: 100 mls/hr Linezolid (Zyvox 600mg/300ml D5w) 600 mg in 300 mls @ 200 mls/hr IVPB Q12 [facility]; Protocol Stop: 07/11/18 22:01 Last Admin: 07/04/18 10:06 Dose: 200 mls/hr Dextrose (Dextrose 5% In Water 1000 Ml) 1,000 mls @ 0 mls/hr IV .Q0M PRN; Protocol PRN Reason: Hypoglycemia Protocol Levofloxacin/Dextrose (Levaquin 250mg) 250 mg in 50 mls @ 50 mls/hr IVPB DAILY [facility]; Protocol Stop: 07/08/18 19:58 Last Admin: 07/04/18 10:05 Dose: 50 mls/hr Sodium Chloride (Sodium Chloride 0.9%) 1,000 mls @ 75 mls/hr IV .[id number] [facility] Last Admin: 07/04/18 18:11 Dose: 75 mls/hr Insulin Human Lispro (Humalog Low) 0 units SC ACHS [facility]; Protocol Last Admin: 07/04/18 17:37 Dose: Not Given Levetiracetam (Keppra) 500 mg PO BID [facility] Last Admin: 07/04/18 18:10 Dose: 500 mg Megestrol Acetate (Megace) 40 mg PO DAILY [facility] Last Admin: 07/04/18 09:57 Dose: 40 mg Mupirocin (Bactroban Ointment) 0 gm TOP DAILY [facility] Ondansetron HCl (Zofran Inj) 4 mg IVP Q4H PRN PRN Reason: Nausea/Vomiting Last Admin: 07/03/18 02:21 Dose: 4 mg Pantoprazole Sodium (Protonix Inj) 40 mg IVP DAILY [facility] Last Admin: 07/04/18 09:56 Dose: 40 mg Sodium Bicarbonate (Sodium Bicarbonate Tab) 1,300 mg PO QID [facility] Last Admin: 07/04/18 18:10 Dose: 1,300 mg Vitamin B Complex/Vit C/Folic Acid (Nephro-Jenny) 1 tab PO 0800 [facility] Last Admin: 07/04/18 14:39 Dose: 1 tab Results - Vital Signs Recent Vital Signs: Last Vital Signs Temp 97.7 F 07/04/18 12:00 Pulse 110 H 07/04/18 14:00 Resp 18 07/04/18 12:00 BP 126/53 L 07/04/18 12:00 Pulse Ox 96 07/04/18 00:01 - Labs Result Diagrams: 07/04/18 14:00 07/04/18 04:20 Labs: Laboratory Results - last 24 hr 07/03/18 07/03/18 07/03/18 14:10 17:11 17:21 WBC RBC Hgb Hct MCV MCH MCHC RDW Plt Count MPV Neut % (Auto) Lymph % (Auto) [place] % (Auto) Eos % (Auto) Baso % (Auto) Lymph # (Auto) [place] # (Auto) Eos # (Auto) Baso # (Auto) Absolute Neuts (auto) Sodium Potassium Chloride Carbon Dioxide Anion Gap BUN Creatinine Est GFR ( Amer) Est GFR (Non-Af Amer) POC Glucose (mg/dL) 124 H Random Glucose Calcium Total Bilirubin AST ALT Alkaline Phosphatase Lactate Dehydrogenase Total Protein Albumin Globulin Albumin/Globulin Ratio Procalcitonin 53.85 H Urine Color Urine Appearance Urine pH Ur Specific [place] Urine Protein Urine Glucose (UA) Urine Ketones Urine Blood Urine Nitrate Urine Bilirubin Urine Urobilinogen Ur Leukocyte Esterase Urine RBC Urine WBC Ur Epithelial Cells Urine Bacteria Ur L.pneumophila Ag Blood Type B POSITIVE Antibody Screen Positive Antibody Identification NON SPECIFIC WARM ANTIBODY KAREL, Poly Interpret Positive H Crossmatch See Detail BBK History Checked Patient has bt 07/03/18 07/03/18 07/03/18 19:53 21:33 22:26 WBC 6.7 D RBC 2.11 L Hgb 6.1 L* Hct 19.8 L* MCV 93.8 MCH 28.9 MCHC 30.8 L RDW 14.3 Plt Count 276 MPV 8.9 Neut % (Auto) 84.2 H Lymph % (Auto) 7.6 L [place] % (Auto) 4.2 Eos % (Auto) 4.0 Baso % (Auto) 0.0 Lymph # (Auto) 0.5 L [place] # (Auto) 0.3 Eos # (Auto) 0.3 Baso # (Auto) 0.00 Absolute Neuts (auto) 5.67 Sodium Potassium Chloride Carbon Dioxide Anion Gap BUN Creatinine Est GFR ( Amer) Est GFR (Non-Af Amer) POC Glucose (mg/dL) 104 Random Glucose Calcium Total Bilirubin AST ALT Alkaline Phosphatase Lactate Dehydrogenase Total Protein Albumin Globulin Albumin/Globulin Ratio Procalcitonin Urine Color Yellow Urine Appearance Clear Urine pH 7.5 Ur Specific [place] 1.010 Urine Protein Trace H Urine Glucose (UA) Negative Urine Ketones Negative Urine Blood Trace-lysed H Urine Nitrate Negative Urine Bilirubin Negative Urine Urobilinogen 0.2 Ur Leukocyte Esterase Negative Urine RBC 1 - 3 H Urine WBC 2 - 5 Ur Epithelial Cells 1 - 3 Urine Bacteria Few Ur L.pneumophila Ag Blood Type Antibody Screen Antibody Identification KAREL, Poly Interpret Crossmatch BBK History Checked 07/03/18 07/04/18 07/04/18 22:26 04:20 04:20 WBC 4.7 D RBC 2.71 L Hgb 7.8 L Hct 24.6 L MCV 90.8 D MCH 28.8 MCHC 31.7 RDW 15.5 H Plt Count 263 MPV 9.2 Neut % (Auto) Lymph % (Auto) [place] % (Auto) Eos % (Auto) Baso % (Auto) Lymph # (Auto) [place] # (Auto) Eos # (Auto) Baso # (Auto) Absolute Neuts (auto) Sodium 143 Potassium 3.9 Chloride 115 H Carbon Dioxide 17 L Anion Gap 14 BUN 22 H Creatinine 1.7 H Est GFR ( Amer) 37 Est GFR (Non-Af Amer) 31 POC Glucose (mg/dL) Random Glucose 181 H Calcium 8.8 Total Bilirubin 1.2 AST 44 H ALT 45 Alkaline Phosphatase 122 Lactate Dehydrogenase Total Protein 6.4 Albumin 3.1 Globulin 3.3 Albumin/Globulin Ratio 0.9 L Procalcitonin Urine Color Urine Appearance Urine pH Ur Specific [place] Urine Protein Urine Glucose (UA) Urine Ketones Urine Blood Urine Nitrate Urine Bilirubin Urine Urobilinogen Ur Leukocyte Esterase Urine RBC Urine WBC Ur Epithelial Cells Urine Bacteria Ur L.pneumophila Ag Negative Blood Type Antibody Screen Antibody Identification KAREL, Poly Interpret Crossmatch BBK History Checked 07/04/18 07/04/18 07/04/18 07:43 12:07 14:00 WBC RBC Hgb 7.8 L Hct 24.2 L MCV MCH MCHC RDW Plt Count MPV Neut % (Auto) Lymph % (Auto) [place] % (Auto) Eos % (Auto) Baso % (Auto) Lymph # (Auto) [place] # (Auto) Eos # (Auto) Baso # (Auto) Absolute Neuts (auto) Sodium Potassium Chloride Carbon Dioxide Anion Gap BUN Creatinine Est GFR ( Amer) Est GFR (Non-Af Amer) POC Glucose (mg/dL) 106 189 H Random Glucose Calcium Total Bilirubin AST ALT Alkaline Phosphatase Lactate Dehydrogenase Total Protein Albumin Globulin Albumin/Globulin Ratio Procalcitonin Urine Color Urine Appearance Urine pH Ur Specific [place] Urine Protein Urine Glucose (UA) Urine Ketones Urine Blood Urine Nitrate Urine Bilirubin Urine Urobilinogen Ur Leukocyte Esterase Urine RBC Urine WBC Ur Epithelial Cells Urine Bacteria Ur L.pneumophila Ag Blood Type Antibody Screen Antibody Identification KAREL, Poly Interpret Crossmatch BBK History Checked 07/04/18 07/04/18 14:00 16:28 WBC RBC Hgb Hct MCV MCH MCHC RDW Plt Count MPV Neut % (Auto) Lymph % (Auto) [place] % (Auto) Eos % (Auto) Baso % (Auto) Lymph # (Auto) [place] # (Auto) Eos # (Auto) Baso # (Auto) Absolute Neuts (auto) Sodium Potassium Chloride Carbon Dioxide Anion Gap BUN Creatinine Est GFR ( Amer) Est GFR (Non-Af Amer) POC Glucose (mg/dL) 80 Random Glucose Calcium Total Bilirubin AST ALT Alkaline Phosphatase Lactate Dehydrogenase 628 Total Protein Albumin Globulin Albumin/Globulin Ratio Procalcitonin Urine Color Urine Appearance Urine pH Ur Specific [place] Urine Protein Urine Glucose (UA) Urine Ketones Urine Blood Urine Nitrate Urine Bilirubin Urine Urobilinogen Ur Leukocyte Esterase Urine RBC Urine WBC Ur Epithelial Cells Urine Bacteria Ur L.pneumophila Ag Blood Type Antibody Screen Antibody Identification KAREL, Poly Interpret Crossmatch BBK History Checked Attending/Attestation - Attestation I have fully participated in the care of the patient.: Yes I have reviewed all pertinent clinical information: Yes Notes (Text): 07/04/18 19:10 CKD PVD DM/HTN Cellulitis Anemia - Diet as tolerated - Continue to monitor H/H, no evidence of overt bleeding noted - Follow up hematology and nephrology recommendations - Obtain prior colonoscopy report (performed in 2017 as per patient) - Would likely benefit from additional GI outpatient evaluation following resolution of acute symptoms. Will continue to monitor patient clinical course.
--- NOTE | 2018-07-04 10:05 | CT ---
Date of service: 07/03/2018 PROCEDURE: CT Abdomen and Pelvis without intravenous contrast HISTORY: drop in H H and nausea/vomiting COMPARISON: 04/11/2017. CT abdomen and pelvis. TECHNIQUE: Unenhanced. Neither IV nor oral contrast administered Radiation dose: Total exam DLP = 198.59 mGy-cm. This CT exam was performed using one or more of the following dose reduction techniques: Automated exposure control, adjustment of the mA and/or kV according to patient size, and/or use of iterative reconstruction technique. FINDINGS: LOWER THORAX: Unremarkable. LIVER: Unremarkable. No gross lesion or ductal dilatation. GALLBLADDER AND BILE DUCTS: Status post cholecystectomy. No abnormality is seen in the gallbladder fossa. PANCREAS: Unremarkable. No gross lesion or ductal dilatation. SPLEEN: Unremarkable. ADRENALS: Unremarkable. No mass. KIDNEYS AND URETERS: Unremarkable. No hydronephrosis. No solid mass. VASCULATURE: Atherosclerotic calcification and mural plaque present. Findings are seen throughout the aorta No aortic aneurysm. BOWEL: Fecal impaction, constipation without mechanical obstruction. Diverticulosis without an acute inflammatory component or other associated pathologic process. APPENDIX: Unremarkable. Normal appendix. PERITONEUM: Unremarkable. No free fluid. No free air. LYMPH NODES: Unremarkable. No enlarged lymph nodes. BLADDER: Unremarkable. REPRODUCTIVE: Unremarkable. BONES: No acute fracture. OTHER FINDINGS: None. IMPRESSION: No significant or acute findings to account for/ related to the clinical presentation. Additional benign and/or incidental findings described above. No significant interval change compared to the prior examination(s). Concordant results (preliminary interpretation) provided by [facility]. Procedure Completed: 18:43. Preliminary Report: Interpreted and electronically signed: 19:42. Final Interpretation: 09:59. July 04, 2018.
--- NOTE | 2018-07-04 11:13 | CP.PCM.PN ---
<Александр Vaz - Last Filed: 07/04/18 11:15> Subjective - Date & Time of Evaluation Date of Evaluation: 07/04/18 Time of Evaluation: 08:00 - Subjective Subjective: Александр Vaz, PGY1 Medicine Progress Note for Dr. Haque Patient seen and examined at bedside this morning. Patient afebrile overnight. She still is tachycardic (HR 100-110s) but improved since admission. She was transfused since yesterday and Hgb responded appropriately. She also had midline placed yesterday. She denies chest pain, sob, abdominal pain, n/v/d, fever, ch ills, fatigue. A full 12 point ROS was conducted and unremarkable except as stated above. Objective - Vital Signs/Intake and Output Vital Signs (last 24 hours): Temp Pulse Resp BP Pulse Ox 98.3 F 112 H 19 127/63 96 07/04/18 06:00 07/04/18 06:00 07/04/18 06:00 07/04/18 06:00 07/04/18 00:01 Intake and Output: 07/04/18 07/04/18 06:59 18:59 Intake Total 2568 Output Total 480 Balance 2088 - Medications Medications: Current Medications Acetaminophen (Tylenol 650 Mg Supp) 650 mg RC Q4H PRN PRN Reason: Fever >100.4 F Aspirin (Ecotrin) 81 mg PO DAILY [facility] Last Admin: 07/04/18 09:58 Dose: 81 mg Cyanocobalamin (Vitamin B12 1000 Mcg Tab) 500 mcg PO DAILY [facility] Last Admin: 07/04/18 09:57 Dose: 500 mcg Darbepoetin Brown (Aranesp) 100 mcg SC QWK [facility] Last Admin: 07/03/18 11:04 Dose: 100 mcg Dextrose (Dextrose 50% Inj) 0 ml IV STAT PRN; Protocol PRN Reason: Hypoglycemia Protocol Ferrous Gluconate (Fergon) 324 mg PO TID [facility] Last Admin: 07/04/18 09:57 Dose: 324 mg Heparin Sodium (Porcine) (Heparin) 5,000 units SC Q8 [facility]; Protocol Last Admin: 07/03/18 13:14 Dose: 5,000 units Meropenem/Sodium Chloride (Merrem Iv 500 Mg/Ns 50 Ml) 500 mg in 50 mls @ 100 mls/hr IVPB Q12 [facility]; Protocol Stop: 07/11/18 22:01 Last Admin: 07/04/18 09:51 Dose: 100 mls/hr Linezolid (Zyvox 600mg/300ml D5w) 600 mg in 300 mls @ 200 mls/hr IVPB Q12 [facility]; Protocol Stop: 07/11/18 22:01 Last Admin: 07/04/18 10:06 Dose: 200 mls/hr Dextrose (Dextrose 5% In Water 1000 Ml) 1,000 mls @ 0 mls/hr IV .Q0M PRN; Protocol PRN Reason: Hypoglycemia Protocol Sodium Chloride (Sodium Chloride 0.9%) 1,000 mls @ 125 mls/hr IV .Q8H [facility] Last Admin: 07/03/18 23:42 Dose: Not Given Levofloxacin/Dextrose (Levaquin 250mg) 250 mg in 50 mls @ 50 mls/hr IVPB DAILY [facility]; Protocol Stop: 07/08/18 19:58 Last Admin: 07/04/18 10:05 Dose: 50 mls/hr Insulin Human Lispro (Humalog Low) 0 units SC ACHS [facility]; Protocol Last Admin: 07/03/18 22:00 Dose: Not Given Levetiracetam (Keppra) 500 mg PO BID [facility] Last Admin: 07/04/18 09:56 Dose: 500 mg Megestrol Acetate (Megace) 40 mg PO DAILY [facility] Last Admin: 07/04/18 09:57 Dose: 40 mg Ondansetron HCl (Zofran Inj) 4 mg IVP Q4H PRN PRN Reason: Nausea/Vomiting Last Admin: 07/03/18 02:21 Dose: 4 mg Pantoprazole Sodium (Protonix Inj) 40 mg IVP DAILY [facility] Last Admin: 07/04/18 09:56 Dose: 40 mg Sodium Bicarbonate (Sodium Bicarbonate Tab) 1,300 mg PO QID [facility] Last Admin: 07/04/18 09:58 Dose: 1,300 mg Vitamin B Complex/Vit C/Folic Acid (Nephro-Jenny) 1 tab PO 0800 [facility] - Labs Labs: 07/04/18 04:20 07/04/18 04:20 PT 14.4 SECONDS (9.4-12.5) H 07/02/18 16:15 INR 1.30 07/02/18 16:15 APTT 39.1 Seconds (26.9-38.3) H 07/02/18 16:15 - Constitutional Appears: Non-toxic, No Acute Distress - Head Exam Head Exam: ATRAUMATIC, NORMAL INSPECTION, NORMOCEPHALIC - Eye Exam Eye Exam: EOMI, Normal appearance Pupil Exam: NORMAL ACCOMODATION - ENT Exam ENT Exam: Mucous Membranes Dry - Neck Exam Neck exam: Positive for: Normal Inspection - Respiratory Exam Respiratory Exam: Clear to Auscultation Bilateral, NORMAL BREATHING PATTERN. absent: Accessory Muscle Use, Chest Wall Tenderness, Rales, Rhonchi, Wheezes, Stridor - Cardiovascular Exam Cardiovascular Exam: RRR, +S1, +S2 - GI/Abdominal Exam GI & Abdominal Exam: Normal Bowel Sounds, Soft. absent: Firm, Guarding, Rebound, Rigid, Tenderness Additional comments: No suprapubic tenderness. - Extremities Exam Extremities exam: Positive for: pedal pulses present. Negative for: tenderness Additional comments: Mild Cellulitis/Erythema noted at the lateral aspect of the right heel - improved significantly since prior exam. No evidence of fluctuation or pus drainage. No evidence of drainage or bleeding. Distal pulses are intact. Evidence of multiple toe amputations. Skin is dry and warm. - Neurological Exam Neurological exam: Alert, CN II-XII Intact, Oriented x3 - Psychiatric Exam Psychiatric exam: Normal Affect, Normal Mood - Skin Skin Exam: Dry, Intact, Normal Color, Warm Assessment and Plan - Assessment and Plan (Free Text) Assessment: Patient is a 62 year old female with PMHx DM2 (last A1c 6.8), HTN, CKD Stage IV, Osteoarthritis, Anemia of Chronic Kidney Disease, Seizures, Hearing Loss, and Osteomyelitis presents to [facility] as advised by her transportation planner, Dr. Raymond, for evaluation of R-heel cellulitis and left 5th metatarsal ulceration. Patient admitted for severe sepsis 2/2 right heel cellulitis with left 5th metatarsal ulceration vs PNA. Hospital course also complicated by anemia. Plan: Severe Sepsis 2/2 Right Heel Cellulitis with Left 5th Metatarsal Ulceration vs LLL PNA - currently afebrile overnight; leukocytosis improved; tachycardia improving. - c/w IVF NS @ 125 cc/hr - continue to monitor BP - normotensive at this time - c/w merrem, linezolid, and levaquin as per ID recommendations - CXR: left lung base consolidation, suspicious for PNA. - f/u Bilateral LE MRI to r/o osteo - Bilateral lower ext foot XRays: negative for osteo - f/u wound Cx - Blood cx negative x2 (prelim) after 24 hours - UCx negative - ID placed on consult (Dr. Castellano). Recs appreciated. - CRP elevated, 261 - Procal level elevated, 53 - Podiatry on consult (Dr. Raymond). Recs appreciated. Anemia likely 2/2 Dilutional Component vs Anemia of chronic kidney disease - Hgb 7.8 this morning; s/p x1 unit pRBC. Repeat Hgb in afternoon. - Transfuse if Hgb < 7.5 - CT A/P: no acute findings; no bleed - GI on consult (Dr. Soto). Recs appreciated. No plan for scope at this time. Advance diet as tolerated. - f/u FOBT - MCV normocytic, Ferritin elevated 1680, TIBC 154 (low), Iron 10 (low), %saturation 7 (low) - Vitamin b12 and folate wnl - Nephro on consult. Recs appreciated. - c/w home med ferrous gluconate, vitamin b12, and sodium bicarb - Baseline Hgb 8-9 with Hx Anemia of Chronic Kidney Disease - Previous hx of endoscopy showing polypoid lesion (1 year ago) FREDY on CKD Stage IV - resolved - BUN/Cr 22/1.7 - resolved (baseline Cr 1.7) - monitor renal function - Nephro on consult (Dr. Reyes). Recs appreciated. Hyperkalemia - resolved - Resolved - K 5.5 on admission - Hold home med [place] for now DM II - ISS - Accuchecks HTN - c/w home med toprol XL - c/w home med aspirin 81mg daily GERD - c/w home med protonix Seizure - c/w home med keppra ppx: - hep sc (Hold) - ptx Diet: Full liquid diet Dispo: Monitor patient on tele. Advance diet as tolerated since GI does not plan to scope. Continue to monitor Hgb. Continue to monitor patient's sepsis. Case was discussed and reviewed with Attending Physician, Dr. Haque <Luna Haque - Last Filed: 07/04/18 12:44> Objective - Vital Signs/Intake and Output Vital Signs (last 24 hours): Temp Pulse Resp BP Pulse Ox 98.3 F 112 H 19 127/63 96 07/04/18 06:00 07/04/18 06:00 07/04/18 06:00 07/04/18 06:00 07/04/18 00:01 Intake and Output: 07/04/18 07/04/18 06:59 18:59 Intake Total 2568 Output Total 480 Balance 2088 - Medications Medications: Current Medications Acetaminophen (Tylenol 650 Mg Supp) 650 mg RC Q4H PRN PRN Reason: Fever >100.4 F Aspirin (Ecotrin) 81 mg PO DAILY [facility] Last Admin: 07/04/18 09:58 Dose: 81 mg Cyanocobalamin (Vitamin B12 1000 Mcg Tab) 500 mcg PO DAILY [facility] Last Admin: 07/04/18 09:57 Dose: 500 mcg Darbepoetin Brown (Aranesp) 100 mcg SC QWK [facility] Last Admin: 07/03/18 11:04 Dose: 100 mcg Dextrose (Dextrose 50% Inj) 0 ml IV STAT PRN; Protocol PRN Reason: Hypoglycemia Protocol Ferrous Gluconate (Fergon) 324 mg PO TID [facility] Last Admin: 07/04/18 09:57 Dose: 324 mg Heparin Sodium (Porcine) (Heparin) 5,000 units SC Q8 [facility]; Protocol Last Admin: 07/03/18 13:14 Dose: 5,000 units Meropenem/Sodium Chloride (Merrem Iv 500 Mg/Ns 50 Ml) 500 mg in 50 mls @ 100 mls/hr IVPB Q12 [facility]; Protocol Stop: 07/11/18 22:01 Last Admin: 07/04/18 09:51 Dose: 100 mls/hr Linezolid (Zyvox 600mg/300ml D5w) 600 mg in 300 mls @ 200 mls/hr IVPB Q12 [facility]; Protocol Stop: 07/11/18 22:01 Last Admin: 07/04/18 10:06 Dose: 200 mls/hr Dextrose (Dextrose 5% In Water 1000 Ml) 1,000 mls @ 0 mls/hr IV .Q0M PRN; Protocol PRN Reason: Hypoglycemia Protocol Sodium Chloride (Sodium Chloride 0.9%) 1,000 mls @ 125 mls/hr IV .Q8H [facility] Last Admin: 07/03/18 23:42 Dose: Not Given Levofloxacin/Dextrose (Levaquin 250mg) 250 mg in 50 mls @ 50 mls/hr IVPB DAILY [facility]; Protocol Stop: 07/08/18 19:58 Last Admin: 07/04/18 10:05 Dose: 50 mls/hr Insulin Human Lispro (Humalog Low) 0 units SC ACHS [facility]; Protocol Last Admin: 07/03/18 22:00 Dose: Not Given Levetiracetam (Keppra) 500 mg PO BID [facility] Last Admin: 07/04/18 09:56 Dose: 500 mg Megestrol Acetate (Megace) 40 mg PO DAILY [facility] Last Admin: 07/04/18 09:57 Dose: 40 mg Mupirocin (Bactroban Ointment) 0 gm TOP DAILY [facility] Ondansetron HCl (Zofran Inj) 4 mg IVP Q4H PRN PRN Reason: Nausea/Vomiting Last Admin: 07/03/18 02:21 Dose: 4 mg Pantoprazole Sodium (Protonix Inj) 40 mg IVP DAILY [facility] Last Admin: 07/04/18 09:56 Dose: 40 mg Sodium Bicarbonate (Sodium Bicarbonate Tab) 1,300 mg PO QID [facility] Last Admin: 07/04/18 09:58 Dose: 1,300 mg Vitamin B Complex/Vit C/Folic Acid (Nephro-Jenny) 1 tab PO 0800 [facility] - Labs Labs: 07/04/18 04:20 07/04/18 04:20 PT 14.4 SECONDS (9.4-12.5) H 07/02/18 16:15 INR 1.30 07/02/18 16:15 APTT 39.1 Seconds (26.9-38.3) H 07/02/18 16:15 Attending/Attestation - Attestation I have personally seen and examined this patient.: Yes I have fully participated in the care of the patient.: Yes I have reviewed all pertinent clinical information, including history, physical exam and plan: Yes Notes (Text): 07/04/18 12:29 62 year old female with past medical history of diabetes, hypertension, CKD, osteomyelitis and seizures who was referred by her transportation planner for right heel cellulitis and left 5th metatarsal ulceration. She was recently prescribed outpatient antibiotics. Also found to have acute anemia, acute on chronic renal failure and left side pneumonia. Continue with wound care as per podiatry. Continue with iv antibiotics as per ID. MRI lower extremities are pending to rule out osteomyelitis. GI evaluation was requested for acute anemia. Recent EGD last year reviewed as above. She received one unit prbc. Hematology evaluation is requested. Nephrology is also following and gave dose of aranesp. CT abd/pelvis was negative for acute findings. Luna Haque MD Hospitalist.
--- NOTE | 2018-07-04 11:26 | CP.PCM.PN ---
Subjective - Date & Time of Evaluation Date of Evaluation: 07/04/18 Time of Evaluation: 11:20 - Subjective Subjective: Podiatry progress note for Drs. Raymond/Twila 62 y/o female seen and evaluated at bedside. Patient denies any acute overnight events. Patient dressing clean, dry and intact Objective - Vital Signs/Intake and Output Vital Signs (last 24 hours): Temp Pulse Resp BP Pulse Ox 98.3 F 112 H 19 127/63 96 07/04/18 06:00 07/04/18 06:00 07/04/18 06:00 07/04/18 06:00 07/04/18 00:01 Intake and Output: 07/04/18 07/04/18 06:59 18:59 Intake Total 2568 Output Total 480 Balance 2088 - Medications Medications: Current Medications Acetaminophen (Tylenol 650 Mg Supp) 650 mg RC Q4H PRN PRN Reason: Fever >100.4 F Aspirin (Ecotrin) 81 mg PO DAILY [facility] Last Admin: 07/04/18 09:58 Dose: 81 mg Cyanocobalamin (Vitamin B12 1000 Mcg Tab) 500 mcg PO DAILY [facility] Last Admin: 07/04/18 09:57 Dose: 500 mcg Darbepoetin Rbown (Aranesp) 100 mcg SC QWK [facility] Last Admin: 07/03/18 11:04 Dose: 100 mcg Dextrose (Dextrose 50% Inj) 0 ml IV STAT PRN; Protocol PRN Reason: Hypoglycemia Protocol Ferrous Gluconate (Fergon) 324 mg PO TID [facility] Last Admin: 07/04/18 09:57 Dose: 324 mg Heparin Sodium (Porcine) (Heparin) 5,000 units SC Q8 [facility]; Protocol Last Admin: 07/03/18 13:14 Dose: 5,000 units Meropenem/Sodium Chloride (Merrem Iv 500 Mg/Ns 50 Ml) 500 mg in 50 mls @ 100 mls/hr IVPB Q12 [facility]; Protocol Stop: 07/11/18 22:01 Last Admin: 07/04/18 09:51 Dose: 100 mls/hr Linezolid (Zyvox 600mg/300ml D5w) 600 mg in 300 mls @ 200 mls/hr IVPB Q12 [facility]; Protocol Stop: 07/11/18 22:01 Last Admin: 07/04/18 10:06 Dose: 200 mls/hr Dextrose (Dextrose 5% In Water 1000 Ml) 1,000 mls @ 0 mls/hr IV .Q0M PRN; Protocol PRN Reason: Hypoglycemia Protocol Sodium Chloride (Sodium Chloride 0.9%) 1,000 mls @ 125 mls/hr IV .Q8H [facility] Last Admin: 07/03/18 23:42 Dose: Not Given Levofloxacin/Dextrose (Levaquin 250mg) 250 mg in 50 mls @ 50 mls/hr IVPB DAILY [facility]; Protocol Stop: 07/08/18 19:58 Last Admin: 07/04/18 10:05 Dose: 50 mls/hr Insulin Human Lispro (Humalog Low) 0 units SC ACHS [facility]; Protocol Last Admin: 07/03/18 22:00 Dose: Not Given Levetiracetam (Keppra) 500 mg PO BID [facility] Last Admin: 07/04/18 09:56 Dose: 500 mg Megestrol Acetate (Megace) 40 mg PO DAILY [facility] Last Admin: 07/04/18 09:57 Dose: 40 mg Ondansetron HCl (Zofran Inj) 4 mg IVP Q4H PRN PRN Reason: Nausea/Vomiting Last Admin: 07/03/18 02:21 Dose: 4 mg Pantoprazole Sodium (Protonix Inj) 40 mg IVP DAILY [facility] Last Admin: 07/04/18 09:56 Dose: 40 mg Sodium Bicarbonate (Sodium Bicarbonate Tab) 1,300 mg PO QID [facility] Last Admin: 07/04/18 09:58 Dose: 1,300 mg Vitamin B Complex/Vit C/Folic Acid (Nephro-Jenny) 1 tab PO 0800 [facility] - Labs Labs: 07/04/18 04:20 07/04/18 04:20 PT 14.4 SECONDS (9.4-12.5) H 07/02/18 16:15 INR 1.30 07/02/18 16:15 APTT 39.1 Seconds (26.9-38.3) H 07/02/18 16:15 - Constitutional Appears: Well, Non-toxic, No Acute Distress - Head Exam Head Exam: ATRAUMATIC, NORMOCEPHALIC - Extremities Exam Additional comments: Lower extremity focused examination: Vasc: DP/PT pulses palpable 2/4 B/L. Temperature gradient warm to warm from proximal to distal. Cap refill time: < 3 sec to all digits, mild non-pitting edema noted on bilateral LE (R>L) Neuro: Protective sensation is grossly intact B/L Derm: Right- right lateral malleolar ulceration measuring about 1 cm X 1 cm with overlying eschar, significant inflammation noted gianluca wound, positive erythema and drainage, tender on palpation, plantar fissure noted with dry blood Left- left submetatarsal 5th ulceration with positive drainage and gianluca wound erythema, multiple other hyperkeratotic lesions noted MSK: No pain on palpation of the foot wound. Left ankle ulceration mildly tender - Neurological Exam Neurological Exam: Alert, Awake, Oriented x3 - Psychiatric Exam Psychiatric exam: Normal Affect, Normal Mood Assessment and Plan - Assessment and Plan (Free Text) Assessment: 62 y/o female sent to ED for admission for IV Abx due to clinical infected wounds Plan: Patient seen and evaluated with Dr. Mattson Plan discussed Chart, labs and vitals reviewed- afebrile at this time, WBC 4.7 from 13.4 on admission, H/H 7.8/24.6 Foot Xray- no evidence of acute osteomyelitis noted Ordered B/L LE MRI without contrast Wound Culture- pending; Wound culture from 06/25: MRSA Right lateral malleolar wound eschar with sterile #11 blade and dressed with Normogel Ag, all other wound dressed with Mepilex foam Bactroban ordered for future dressing changes Continue IV Abx Continue medical management as per primary team Podiatry will continue to follow patient while in house
--- NOTE | 2018-07-04 13:50 | CP.PCM.PN ---
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 No ACEI/ARB due to FREDY and recurrent hyperkalemia. maintain hemodynamics stable. avoid hypotension Monitor Input/Output, daily weights and renal function with basic metabolic panel continue Sodium bicarb 1300 mg qid dose of ananesp 100 mcg on 07/03/18, as needed PRBC transfusion. On iron and MVI continue with IVF as NS but can lower rate to 75-100 ml/hr soon podiatry ID GI following Dose meds/antibiotics for reduced GFR. Avoid fleets enema/magnesium based laxatives. Avoid nephrotoxins/NSAIDs/ iodinated contrast (unless needed emerg ently) Glycemic control Further work up/management as per primary team Thanks for allowing me to participate in care of your patient. Will follow patient with you. Please call if any Qs. had d/w team Dr Javier Reyes Office: [phone] CC; heel wound/ulcer reason for consult: CKD management HPI: Pt is a 62 y/o F with hx of diabetes Mellitus ( x 8-9 years) with retinopathy, hypertension, hearing loss, esophageal stenosis, chronic anemia, basal cell CA on nasal skin s/p removal, recurrent AKIs, now has CKD stage 3 with anemia, RTA and hyperkalemia, seizure came with feet wound and infection with sepsis renal consult for CKD management. Denies chest pain, palpitation, shortness of breath, leg swelling. Had chronic loose stool 2-3 times/day but better now a days. ROS: pt c/o skin rash. no CP/SOB. no pain abdomen. all other negative except feet wound General Appearance: comfortable, in no acute respiratory distress, co-operative. thin built. Vitals reviewed and noted Head; Atraumatic, normocephalic ENT: no ulcers no thrush. Tongue is midline. Oropharynx: no rash or ulcers. Hard of hearing. Uses hearing aid. EYES: Pupils are equal, round and reactive to light accommodation. Eye muscles and extraocular movement intact. Sclera is anicteric. Neck; supple no lymphadenopathy, no thyromegaly or bruit Lungs: Normal respiratory rate/effort. Breath sounds bilateral equal and clear Heart: Increased rate. s1s2 normal. No rub or gallop. Extremities: no edema with wound dressed at feet. No varicose veins. Hand osteoarthritic deformities +. Neurological: Patient is alert, awake and oriented to person, place and time. No focal deficit. Strength bilateral appropriate and equal Skin: Warm and dry. Normal turgor. Palpitation: Normal elasticity for age. has erythemtous rash in upper extremities Abdomen: Abdomen is soft. Bowel sounds +. There is no abdominal tenderness, no guarding/rigidity or organomegaly Psych: normal insight and normal affect/mood MSK: no joint tenderness or swelling. : kidney or bladder not palpable Labs/imaging reviewed. Past medical history, past surgical history, family history, social history, allergy reviewed and noted as below Family hx: no hx of CKD. Rest non-contributory Work up: 09/13/2016: GN serologies all negative, scleroderma work up neg, SPEP/LUDY neg Renal sono: b/l cortical atrophy. Small 1 cm Rt kidney simple cyst. Objective - Vital Signs/Intake and Output Vital Signs (last 24 hours): Temp Pulse Resp BP Pulse Ox 97.7 F 99 H 18 126/53 L 96 07/04/18 12:00 07/04/18 12:00 07/04/18 12:00 07/04/18 12:00 07/04/18 00:01 Intake and Output: 07/04/18 07/04/18 06:59 18:59 Intake Total 2568 Output Total 480 Balance 2088 - Medications Medications: Current Medications Acetaminophen (Tylenol 650 Mg Supp) 650 mg RC Q4H PRN PRN Reason: Fever >100.4 F Aspirin (Ecotrin) 81 mg PO DAILY [facility] Last Admin: 07/04/18 09:58 Dose: 81 mg Cyanocobalamin (Vitamin B12 1000 Mcg Tab) 500 mcg PO DAILY [facility] Last Admin: 07/04/18 09:57 Dose: 500 mcg Darbepoetin Brown (Aranesp) 100 mcg SC QWK [facility] Last Admin: 07/03/18 11:04 Dose: 100 mcg Dextrose (Dextrose 50% Inj) 0 ml IV STAT PRN; Protocol PRN Reason: Hypoglycemia Protocol Ferrous Gluconate (Fergon) 324 mg PO TID [facility] Last Admin: 07/04/18 09:57 Dose: 324 mg Heparin Sodium (Porcine) (Heparin) 5,000 units SC Q8 [facility]; Protocol Last Admin: 07/03/18 13:14 Dose: 5,000 units Meropenem/Sodium Chloride (Merrem Iv 500 Mg/Ns 50 Ml) 500 mg in 50 mls @ 100 mls/hr IVPB Q12 [facility]; Protocol Stop: 07/11/18 22:01 Last Admin: 07/04/18 09:51 Dose: 100 mls/hr Linezolid (Zyvox 600mg/300ml D5w) 600 mg in 300 mls @ 200 mls/hr IVPB Q12 [facility]; Protocol Stop: 07/11/18 22:01 Last Admin: 07/04/18 10:06 Dose: 200 mls/hr Dextrose (Dextrose 5% In Water 1000 Ml) 1,000 mls @ 0 mls/hr IV .Q0M PRN; Protocol PRN Reason: Hypoglycemia Protocol Sodium Chloride (Sodium Chloride 0.9%) 1,000 mls @ 125 mls/hr IV .Q8H [facility] Last Admin: 07/03/18 23:42 Dose: Not Given Levofloxacin/Dextrose (Levaquin 250mg) 250 mg in 50 mls @ 50 mls/hr IVPB DAILY [facility]; Protocol Stop: 07/08/18 19:58 Last Admin: 07/04/18 10:05 Dose: 50 mls/hr Insulin Human Lispro (Humalog Low) 0 units SC ACHS [facility]; Protocol Last Admin: 07/03/18 22:00 Dose: Not Given Levetiracetam (Keppra) 500 mg PO BID [facility] Last Admin: 07/04/18 09:56 Dose: 500 mg Megestrol Acetate (Megace) 40 mg PO DAILY [facility] Last Admin: 07/04/18 09:57 Dose: 40 mg Mupirocin (Bactroban Ointment) 0 gm TOP DAILY [facility] Ondansetron HCl (Zofran Inj) 4 mg IVP Q4H PRN PRN Reason: Nausea/Vomiting Last Admin: 07/03/18 02:21 Dose: 4 mg Pantoprazole Sodium (Protonix Inj) 40 mg IVP DAILY [facility] Last Admin: 07/04/18 09:56 Dose: 40 mg Sodium Bicarbonate (Sodium Bicarbonate Tab) 1,300 mg PO QID [facility] Last Admin: 07/04/18 09:58 Dose: 1,300 mg Vitamin B Complex/Vit C/Folic Acid (Nephro-Jenny) 1 tab PO 0800 [facility] - Labs Labs: 07/04/18 04:20 07/04/18 04:20 PT 14.4 SECONDS (9.4-12.5) H 07/02/18 16:15 INR 1.30 07/02/18 16:15 APTT 39.1 Seconds (26.9-38.3) H 07/02/18 16:15
[2018-07-04 14:32] LABS: HEMOGLOBIN 7.8 g/dL (12.0-16.0)
[2018-07-04] MEDS: Multivitamin Vitamin B Complex (Nephro-Vite) Tab PO SCH (14:39)
[2018-07-04] MEDS: Insulin Lispro (humaLOG) LOW Coverage SC SCH ×4 (14:44→22:30)
[2018-07-04] MEDS: Sodium Chloride 0.9% 1,000 ML IV SCH (18:11)
--- NOTE | 2018-07-04 19:17 | CP.PCM.CON ---
History of Present Illness - History of Present Illness History of Present Illness: 62 year old female with a history of HTN, DM, CKD, sent to the hospital by his signal maintainer for B/L foot ulcers, with anemia. The patient denies abnormal bleeding and bruising. She was found to have a positive KAREL and hgb of 5.4. She is s/p PRBC transfusion and notes to feeling better. Past medical history: HTN, DM, CKD, lower extremity ulcers Past surgical history: B/l toe amputation, cholecystectomy, cataracts Family history: Denies hematologic and oncologic problems Social history: Denies tobacco, alcohol, and illicit drug use. Allergies: Multiple, see list. Past Patient History - Infectious Disease Hx of Infectious Diseases: None - Tetanus Immunizations Tetanus Immunization: Unknown - Past Medical History & Family History Past Medical History?: Yes - Past Social History Smoking Status: Never Smoked - CARDIAC Hx Cardiac Disorders: Yes Hx Hypertension: Yes Hx Pacemaker: No - PULMONARY Hx Respiratory Disorders: No - NEUROLOGICAL Hx Neurological Disorder: Yes (headaches) Other/Comment: 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 - HEENT Hx HEENT Problems: Yes Hx Cataracts: Yes (sx both eyes) - RENAL Hx Chronic Kidney Disease: Yes Other/Comment: chronic kidney disease - ENDOCRINE/METABOLIC Hx Endocrine Disorders: Yes (THYROID MASS) Hx Diabetes Mellitus Type 2: Yes Hx Hyperthyroidism: Yes - HEMATOLOGICAL/ONCOLOGICAL Hx Blood Disorders: Yes Hx Anemia: Yes (HAD BLOOD TRANSFUSIONS.) Hx Cancer: No - INTEGUMENTARY Hx Dermatological Problems: Yes (bilateral diabetic foot ulcers) Other/Comment: left foot redness, broken blister to left great toe 2cm round, red and yellow slough noted, small black round wound to left 4th toe .3cm, left foot 2 small red wounds .3 cm, small wound to ball of left foot dry brown .5cm round, dry flakey skin to both feet,1.5cm x .5cm dry red wiound to ball of right foot, dry scabs to lower right leg (ALL FROM PREVIOUS TRIAGE NOT FROM 04/10/17). 19 RIGHT HEEL WITH REDNESS,HAS A SMALL 0.6 CM SLOUGH .SURROUNDING AREA HAS + ERYTHEMA. RIGHT LATERAL OUTER MALLEOLAR BONE AREA HAS A LARGE ROUND REDDENED SKIN,+_ ERYTHEMA MEASURES 4 X 5.5 CM WITH CENTER OF WOUND HAS SLOUGH MEASURES 1 X 0.6 CM DM WOUND. LEFT FOOT MULTIPLE TOE AMPUTATED. - MUSCULOSKELETAL/RHEUMATOLOGICAL Hx Musculoskeletal Disorders: Yes Hx Arthritis: Yes Hx Falls: Yes Hx Osteoarthritis: Yes Hx Osteomyelitis: Yes Hx Unsteady Gait: Yes - GASTROINTESTINAL Hx Gastrointestinal Disorders: Yes Hx Gastroesophageal Reflux: Yes - GENITOURINARY/GYNECOLOGICAL Hx Genitourinary Disorders: No - PSYCHIATRIC Hx Emotional Abuse: No Hx Physical Abuse: No Hx Substance Use: No - SURGICAL HISTORY Hx Surgeries: Yes (BILATERAL TOES AMPUTATED,RIGHT FOOT 1 TOE AMPUTATED.) Hx Cholecystectomy: Yes Hx Mastectomy: No Hx Orthopedic Surgery: Yes Other/Comment: BIALTERAL CATARACT SX, - ANESTHESIA Hx Anesthesia: Yes Hx Anesthesia Reactions: No Hx Malignant Hyperthermia: No Meds Allergies/Adverse Reactions: Allergies Allergy/AdvReac Type Severity Reaction Status Date / Time ceftriaxone Allergy SHORTNESS Verified 07/02/18 19:10 OF BREATH clindamycin Allergy RASH Verified 07/02/18 19:10 Penicillins Allergy SHORTNESS Verified 07/02/18 19:10 OF BREATH sulfamethoxazole Allergy RASH Verified 07/02/18 19:10 [From Bactrim] trimethoprim [From Bactrim] Allergy RASH Verified 07/02/18 19:10 - Medications Medications: Current Medications Acetaminophen (Tylenol 650 Mg Supp) 650 mg RC Q4H PRN PRN Reason: Fever >100.4 F Aspirin (Ecotrin) 81 mg PO DAILY [facility] Last Admin: 07/04/18 09:58 Dose: 81 mg Cyanocobalamin (Vitamin B12 1000 Mcg Tab) 500 mcg PO DAILY [facility] Last Admin: 07/04/18 09:57 Dose: 500 mcg Darbepoetin Brown (Aranesp) 100 mcg SC QWK [facility] Last Admin: 07/03/18 11:04 Dose: 100 mcg Dextrose (Dextrose 50% Inj) 0 ml IV STAT PRN; Protocol PRN Reason: Hypoglycemia Protocol Ferrous Gluconate (Fergon) 324 mg PO TID [facility] Last Admin: 07/04/18 18:14 Dose: 324 mg Heparin Sodium (Porcine) (Heparin) 5,000 units SC Q8 [facility]; Protocol Last Admin: 07/03/18 13:14 Dose: 5,000 units Meropenem/Sodium Chloride (Merrem Iv 500 Mg/Ns 50 Ml) 500 mg in 50 mls @ 100 mls/hr IVPB Q12 [facility]; Protocol Stop: 07/11/18 22:01 Last Admin: 07/04/18 09:51 Dose: 100 mls/hr Linezolid (Zyvox 600mg/300ml D5w) 600 mg in 300 mls @ 200 mls/hr IVPB Q12 [facility]; Protocol Stop: 07/11/18 22:01 Last Admin: 07/04/18 10:06 Dose: 200 mls/hr Dextrose (Dextrose 5% In Water 1000 Ml) 1,000 mls @ 0 mls/hr IV .Q0M PRN; Protocol PRN Reason: Hypoglycemia Protocol Levofloxacin/Dextrose (Levaquin 250mg) 250 mg in 50 mls @ 50 mls/hr IVPB DAILY [facility]; Protocol Stop: 07/08/18 19:58 Last Admin: 07/04/18 10:05 Dose: 50 mls/hr Sodium Chloride (Sodium Chloride 0.9%) 1,000 mls @ 75 mls/hr IV .[id number] [facility] Last Admin: 07/04/18 18:11 Dose: 75 mls/hr Insulin Human Lispro (Humalog Low) 0 units SC ACHS [facility]; Protocol Last Admin: 07/04/18 17:37 Dose: Not Given Levetiracetam (Keppra) 500 mg PO BID [facility] Last Admin: 07/04/18 18:10 Dose: 500 mg Megestrol Acetate (Megace) 40 mg PO DAILY [facility] Last Admin: 07/04/18 09:57 Dose: 40 mg Mupirocin (Bactroban Ointment) 0 gm TOP DAILY [facility] Ondansetron HCl (Zofran Inj) 4 mg IVP Q4H PRN PRN Reason: Nausea/Vomiting Last Admin: 07/03/18 02:21 Dose: 4 mg Pantoprazole Sodium (Protonix Inj) 40 mg IVP DAILY [facility] Last Admin: 07/04/18 09:56 Dose: 40 mg Sodium Bicarbonate (Sodium Bicarbonate Tab) 1,300 mg PO QID [facility] Last Admin: 07/04/18 18:10 Dose: 1,300 mg Vitamin B Complex/Vit C/Folic Acid (Nephro-Jenny) 1 tab PO 0800 [facility] Last Admin: 07/04/18 14:39 Dose: 1 tab Physical Exam - Head Exam Head Exam: ATRAUMATIC - Eye Exam Eye Exam: Normal appearance - ENT Exam ENT Exam: Mucous Membranes Dry - Respiratory Exam Respiratory Exam: NORMAL BREATHING PATTERN - Cardiovascular Exam Cardiovascular Exam: +S1, +S2 - GI/Abdominal Exam GI & Abdominal Exam: Normal Bowel Sounds - Neurological Exam Neurological exam: Oriented x3 - Psychiatric Exam Psychiatric exam: Normal Affect, Normal Mood - Skin Skin Exam: Warm Results - Vital Signs Recent Vital Signs: Last Vital Signs Temp 97.7 F 07/04/18 12:00 Pulse 110 H 07/04/18 14:00 Resp 18 07/04/18 12:00 BP 126/53 L 07/04/18 12:00 Pulse Ox 96 07/04/18 00:01 - Labs Result Diagrams: 07/05/18 08:00 07/05/18 08:00 Labs: Laboratory Results - last 24 hr 07/03/18 07/03/18 07/03/18 14:10 17:11 17:21 WBC RBC Hgb Hct MCV MCH MCHC RDW Plt Count MPV Neut % (Auto) Lymph % (Auto) Bates % (Auto) Eos % (Auto) Baso % (Auto) Lymph # (Auto) Bates # (Auto) Eos # (Auto) Baso # (Auto) Absolute Neuts (auto) Sodium Potassium Chloride Carbon Dioxide Anion Gap BUN Creatinine Est GFR ( Amer) Est GFR (Non-Af Amer) POC Glucose (mg/dL) 124 H Random Glucose Calcium Total Bilirubin AST ALT Alkaline Phosphatase Lactate Dehydrogenase Total Protein Albumin Globulin Albumin/Globulin Ratio Procalcitonin 53.85 H Urine Color Urine Appearance Urine pH Ur Specific [place] Urine Protein Urine Glucose (UA) Urine Ketones Urine Blood Urine Nitrate Urine Bilirubin Urine Urobilinogen Ur Leukocyte Esterase Urine RBC Urine WBC Ur Epithelial Cells Urine Bacteria Ur L.pneumophila Ag Blood Type B POSITIVE Antibody Screen Positive Antibody Identification NON SPECIFIC WARM ANTIBODY KAREL, Poly Interpret Positive H Crossmatch See Detail BBK History Checked Patient has bt 07/03/18 07/03/18 07/03/18 19:53 21:33 22:26 WBC 6.7 D RBC 2.11 L Hgb 6.1 L* Hct 19.8 L* MCV 93.8 MCH 28.9 MCHC 30.8 L RDW 14.3 Plt Count 276 MPV 8.9 Neut % (Auto) 84.2 H Lymph % (Auto) 7.6 L Bates % (Auto) 4.2 Eos % (Auto) 4.0 Baso % (Auto) 0.0 Lymph # (Auto) 0.5 L Bates # (Auto) 0.3 Eos # (Auto) 0.3 Baso # (Auto) 0.00 Absolute Neuts (auto) 5.67 Sodium Potassium Chloride Carbon Dioxide Anion Gap BUN Creatinine Est GFR ( Amer) Est GFR (Non-Af Amer) POC Glucose (mg/dL) 104 Random Glucose Calcium Total Bilirubin AST ALT Alkaline Phosphatase Lactate Dehydrogenase Total Protein Albumin Globulin Albumin/Globulin Ratio Procalcitonin Urine Color Yellow Urine Appearance Clear Urine pH 7.5 Ur Specific [place] 1.010 Urine Protein Trace H Urine Glucose (UA) Negative Urine Ketones Negative Urine Blood Trace-lysed H Urine Nitrate Negative Urine Bilirubin Negative Urine Urobilinogen 0.2 Ur Leukocyte Esterase Negative Urine RBC 1 - 3 H Urine WBC 2 - 5 Ur Epithelial Cells 1 - 3 Urine Bacteria Few Ur L.pneumophila Ag Blood Type Antibody Screen Antibody Identification KAREL, Poly Interpret Crossmatch BBK History Checked 07/03/18 07/04/18 07/04/18 22:26 04:20 04:20 WBC 4.7 D RBC 2.71 L Hgb 7.8 L Hct 24.6 L MCV 90.8 D MCH 28.8 MCHC 31.7 RDW 15.5 H Plt Count 263 MPV 9.2 Neut % (Auto) Lymph % (Auto) Bates % (Auto) Eos % (Auto) Baso % (Auto) Lymph # (Auto) Bates # (Auto) Eos # (Auto) Baso # (Auto) Absolute Neuts (auto) Sodium 143 Potassium 3.9 Chloride 115 H Carbon Dioxide 17 L Anion Gap 14 BUN 22 H Creatinine 1.7 H Est GFR ( Amer) 37 Est GFR (Non-Af Amer) 31 POC Glucose (mg/dL) Random Glucose 181 H Calcium 8.8 Total Bilirubin 1.2 AST 44 H ALT 45 Alkaline Phosphatase 122 Lactate Dehydrogenase Total Protein 6.4 Albumin 3.1 Globulin 3.3 Albumin/Globulin Ratio 0.9 L Procalcitonin Urine Color Urine Appearance Urine pH Ur Specific [place] Urine Protein Urine Glucose (UA) Urine Ketones Urine Blood Urine Nitrate Urine Bilirubin Urine Urobilinogen Ur Leukocyte Esterase Urine RBC Urine WBC Ur Epithelial Cells Urine Bacteria Ur L.pneumophila Ag Negative Blood Type Antibody Screen Antibody Identification KAREL, Poly Interpret Crossmatch BBK History Checked 07/04/18 07/04/18 07/04/18 07:43 12:07 14:00 WBC RBC Hgb 7.8 L Hct 24.2 L MCV MCH MCHC RDW Plt Count MPV Neut % (Auto) Lymph % (Auto) Bates % (Auto) Eos % (Auto) Baso % (Auto) Lymph # (Auto) Bates # (Auto) Eos # (Auto) Baso # (Auto) Absolute Neuts (auto) Sodium Potassium Chloride Carbon Dioxide Anion Gap BUN Creatinine Est GFR ( Amer) Est GFR (Non-Af Amer) POC Glucose (mg/dL) 106 189 H Random Glucose Calcium Total Bilirubin AST ALT Alkaline Phosphatase Lactate Dehydrogenase Total Protein Albumin Globulin Albumin/Globulin Ratio Procalcitonin Urine Color Urine Appearance Urine pH Ur Specific [place] Urine Protein Urine Glucose (UA) Urine Ketones Urine Blood Urine Nitrate Urine Bilirubin Urine Urobilinogen Ur Leukocyte Esterase Urine RBC Urine WBC Ur Epithelial Cells Urine Bacteria Ur L.pneumophila Ag Blood Type Antibody Screen Antibody Identification KAREL, Poly Interpret Crossmatch BBK History Checked 07/04/18 07/04/18 14:00 16:28 WBC RBC Hgb Hct MCV MCH MCHC RDW Plt Count MPV Neut % (Auto) Lymph % (Auto) [place] % (Auto) Eos % (Auto) Baso % (Auto) Lymph # (Auto) Bates # (Auto) Eos # (Auto) Baso # (Auto) Absolute Neuts (auto) Sodium Potassium Chloride Carbon Dioxide Anion Gap BUN Creatinine Est GFR ( Amer) Est GFR (Non-Af Amer) POC Glucose (mg/dL) 80 Random Glucose Calcium Total Bilirubin AST ALT Alkaline Phosphatase Lactate Dehydrogenase 628 Total Protein Albumin Globulin Albumin/Globulin Ratio Procalcitonin Urine Color Urine Appearance Urine pH Ur Specific [place] Urine Protein Urine Glucose (UA) Urine Ketones Urine Blood Urine Nitrate Urine Bilirubin Urine Urobilinogen Ur Leukocyte Esterase Urine RBC Urine WBC Ur Epithelial Cells Urine Bacteria Ur L.pneumophila Ag Blood Type Antibody Screen Antibody Identification KAREL, Poly Interpret Crossmatch BBK History Checked Assessment & Plan (1) Anemia Assessment and Plan: anemia of chronic disease from infection and anemia of CKD agree with transfusion support erythropoietin supplementation to decrease transfusion dependence no iron/b12/folate deficiency KAREL can be positive without hemolysis - no evidence of hemolysis Thank you for this interesting consult. Status: Chronic Priority: Medium
--- NOTE | 2018-07-04 21:45 | PN ---
DATE: 07/04/2018 SUBJECTIVE: The patient is seen earlier this morning in 262, bed 1. PHYSICAL EXAMINATION: VITAL SIGNS: Temperature is 97, blood pressure is 126/50, respiratory rate 18, heart rate of 99. HEENT: Unremarkable. NECK: Supple. LUNGS: Decreased breath sounds. HEART: Normal S1 and S2. ABDOMEN: Soft. LABORATORY DATA: Laboratory examination reveals a white count of 4.7, hemoglobin of 7, BUN of 22, creatinine of 1.7, procalcitonin of 53. Urinalysis is noted. Microbiology reveals the blood cultures are negative, urine cultures are negative. Review of orders reveals the patient to be on Levaquin, meropenem, and Zyvox. CAT scan of the abdomen and pelvis is reported to be negative. ASSESSMENT AND PLAN: This is a 62-year-old female admitted with multiple comorbidities, sepsis, left-sided healthcare-associated pneumonia, MULTIPLE ALLERGIES, on day #2 of Zyvox, meropenem and Levaquin. The patient appears to be improving. Right heel cellulitis, which is improving. We are waiting for further workup results. We are waiting for a sputum culture methicillin-resistant Staphylococcus aureus screen. We are waiting for urine for the Legionella antigen. We will follow with you. Carroll Castellano MD
[2018-07-05 08:17] LABS: HEMOGLOBIN 8.3 g/dL (12.0-16.0); MEAN CELL VOLUME 89.9 fl (80.0-105.0); MEAN CORPUSCULAR HEMOGLOBIN 28.9 pg (25.0-35.0); MEAN CORPUSCULAR HGB CONC 32.2 g/dl (31.0-37.0); MEAN PLATELET VOLUME 9.2 fl (7.0-11.0); RBC 2.87 {null, 10^6/uL} (3.5-6.1); WHITE BLOOD COUNT 4.1 {null, 10^3/uL} (4.5-11.0)
[2018-07-05 08:24] LABS: ALBUMIN 3.2 g/dL (3.0-4.8); CALCIUM 8.9 mg/dL (8.4-10.5)
[2018-07-05] MEDS ORDERED: Potassium Chloride 20 mEq ER Tab PO STA (08:36)
--- NOTE | 2018-07-05 10:05 | CP.PCM.PN ---
<Becki Yao - Last Filed: 07/05/18 09:59> Subjective - Date & Time of Evaluation Date of Evaluation: 07/05/18 Time of Evaluation: 09:59 - Subjective Subjective: Gastroenterology Fellow/PGY6 Progress Note Patient feels well. Tolerating diet. One formed brown stool yesterday. A 12- point review of systems negative except for as above. Objective - Vital Signs/Intake and Output Vital Signs (last 24 hours): Temp Pulse Resp BP Pulse Ox 97.9 F 98 H 18 151/75 H 98 07/05/18 06:00 07/05/18 06:00 07/05/18 06:00 07/05/18 06:00 07/05/18 06:00 Intake and Output: 07/05/18 07/05/18 06:59 18:59 Intake Total 900 480 Output Total 800 Balance 900 -320 - Medications Medications: Current Medications Acetaminophen (Tylenol 650 Mg Supp) 650 mg RC Q4H PRN PRN Reason: Fever >100.4 F Aspirin (Ecotrin) 81 mg PO DAILY [facility] Last Admin: 07/04/18 09:58 Dose: 81 mg Cyanocobalamin (Vitamin B12 1000 Mcg Tab) 500 mcg PO DAILY [facility] Last Admin: 07/04/18 09:57 Dose: 500 mcg Darbepoetin Brown (Aranesp) 100 mcg SC QWK [facility] Last Admin: 07/03/18 11:04 Dose: 100 mcg Dextrose (Dextrose 50% Inj) 0 ml IV STAT PRN; Protocol PRN Reason: Hypoglycemia Protocol Ferrous Gluconate (Fergon) 324 mg PO TID [facility] Last Admin: 07/04/18 18:14 Dose: 324 mg Heparin Sodium (Porcine) (Heparin) 5,000 units SC Q8 [facility]; Protocol Last Admin: 07/03/18 13:14 Dose: 5,000 units Meropenem/Sodium Chloride (Merrem Iv 500 Mg/Ns 50 Ml) 500 mg in 50 mls @ 100 mls/hr IVPB Q12 [facility]; Protocol Stop: 07/11/18 22:01 Last Admin: 07/04/18 22:15 Dose: 100 mls/hr Linezolid (Zyvox 600mg/300ml D5w) 600 mg in 300 mls @ 200 mls/hr IVPB Q12 [facility]; Protocol Stop: 07/11/18 22:01 Last Admin: 07/04/18 22:15 Dose: 200 mls/hr Dextrose (Dextrose 5% In Water 1000 Ml) 1,000 mls @ 0 mls/hr IV .Q0M PRN; Protocol PRN Reason: Hypoglycemia Protocol Levofloxacin/Dextrose (Levaquin 250mg) 250 mg in 50 mls @ 50 mls/hr IVPB DAILY [facility]; Protocol Stop: 07/08/18 19:58 Last Admin: 07/04/18 10:05 Dose: 50 mls/hr Sodium Chloride (Sodium Chloride 0.9%) 1,000 mls @ 75 mls/hr IV .[id number] [facility] Last Admin: 07/04/18 18:11 Dose: 75 mls/hr Insulin Human Lispro (Humalog Low) 0 units SC ACHS [facility]; Protocol Last Admin: 07/04/18 22:30 Dose: Not Given Levetiracetam (Keppra) 500 mg PO BID [facility] Last Admin: 07/04/18 18:10 Dose: 500 mg Megestrol Acetate (Megace) 40 mg PO DAILY [facility] Last Admin: 07/04/18 09:57 Dose: 40 mg Metoprolol Succinate (Toprol Xl) 50 mg PO DAILY [facility] Mupirocin (Bactroban Ointment) 0 gm TOP DAILY [facility] Ondansetron HCl (Zofran Inj) 4 mg IVP Q4H PRN PRN Reason: Nausea/Vomiting Last Admin: 07/03/18 02:21 Dose: 4 mg Pantoprazole Sodium (Protonix Inj) 40 mg IVP DAILY [facility] Last Admin: 07/04/18 09:56 Dose: 40 mg Sodium Bicarbonate (Sodium Bicarbonate Tab) 1,300 mg PO QID [facility] Last Admin: 07/04/18 22:15 Dose: 1,300 mg Vitamin B Complex/Vit C/Folic Acid (Nephro-Jenny) 1 tab PO 0800 [facility] Last Admin: 07/04/18 14:39 Dose: 1 tab - Labs Labs: 07/05/18 08:00 07/05/18 08:00 PT 14.4 SECONDS (9.4-12.5) H 07/02/18 16:15 INR 1.30 07/02/18 16:15 APTT 39.1 Seconds (26.9-38.3) H 07/02/18 16:15 - Constitutional Appears: Non-toxic, No Acute Distress - Head Exam Head Exam: ATRAUMATIC, NORMOCEPHALIC - Eye Exam Eye Exam: EOMI, PERRL. absent: Scleral icterus Pupil Exam: PERRL. absent: Miosis, Mydriatic - ENT Exam ENT Exam: Mucous Membranes Moist, Normal Oropharynx - Neck Exam Neck Exam: Full ROM, Normal Inspection - Respiratory Exam Respiratory Exam: Clear to Ausculation Bilateral. absent: Rales, Rhonchi, Wheezes - Cardiovascular Exam Cardiovascular Exam: RRR, +S1, +S2. absent: Gallop, Rubs - GI/Abdominal Exam GI & Abdominal Exam: Soft, Normal Bowel Sounds. absent: Distended, Firm, Guarding, Rigid, Tenderness, Organomegaly, Rebound - Extremities Exam Extremities Exam: Normal Inspection. absent: Pedal Edema - Neurological Exam Neurological Exam: Alert, Awake - Psychiatric Exam Psychiatric exam: Normal Affect, Normal Mood - Skin Skin Exam: Dry, Intact, Normal Color, Warm Assessment and Plan - Assessment and Plan (Free Text) Assessment: 62 year old female with PMH of anemia requiring transfusions, CKD Stage IV, PVD with multiple leg wounds/osteomyelitis/toe amputations, Diabetes, and HTN presenting with non-healing toe ulcer and heel cellulitis. GI consultation for a nemia. Prior EGD 06/2017 showed H. pylori negative gastritis and a 3cm pre- pyloric pedunculated hyperplastic polyp s/p EMR. Patient endorses prior colonoscopy in 2016 to be normal with recommended five year surveillance. Plan: -H/H stable, continue to monitor -continue PPI daily -no plan for endoscopic evaluation -follow up hematology recommendations -will benefit from elective follow up for capsule endoscopy in setting of iron deficiency -thank you for opportunity to participate in the care of this patient <Sebastian Soto - Last Filed: 07/05/18 14:18> Objective - Vital Signs/Intake and Output Vital Signs (last 24 hours): Temp Pulse Resp BP Pulse Ox 98 F 126 H 20 143/75 98 07/05/18 12:00 07/05/18 12:00 07/05/18 12:00 07/05/18 12:00 07/05/18 06:00 Intake and Output: 07/05/18 07/05/18 06:59 18:59 Intake Total 900 480 Output Total 800 Balance 900 -320 - Medications Medications: Current Medications Acetaminophen (Tylenol 650 Mg Supp) 650 mg RC Q4H PRN PRN Reason: Fever >100.4 F Aspirin (Ecotrin) 81 mg PO DAILY [facility] Last Admin: 07/05/18 11:02 Dose: 81 mg Cyanocobalamin (Vitamin B12 1000 Mcg Tab) 500 mcg PO DAILY [facility] Last Admin: 07/05/18 11:03 Dose: 500 mcg Darbepoetin Brown (Aranesp) 100 mcg SC QWK [facility] Last Admin: 07/03/18 11:04 Dose: 100 mcg Dextrose (Dextrose 50% Inj) 0 ml IV STAT PRN; Protocol PRN Reason: Hypoglycemia Protocol Ferrous Gluconate (Fergon) 324 mg PO TID [facility] Last Admin: 07/05/18 11:10 Dose: 324 mg Heparin Sodium (Porcine) (Heparin) 5,000 units SC Q8 [facility]; Protocol Last Admin: 07/03/18 13:14 Dose: 5,000 units Meropenem/Sodium Chloride (Merrem Iv 500 Mg/Ns 50 Ml) 500 mg in 50 mls @ 100 mls/hr IVPB Q12 [facility]; Protocol Stop: 07/11/18 22:01 Last Admin: 07/05/18 11:05 Dose: 100 mls/hr Linezolid (Zyvox 600mg/300ml D5w) 600 mg in 300 mls @ 200 mls/hr IVPB Q12 [facility]; Protocol Stop: 07/11/18 22:01 Last Admin: 07/05/18 11:06 Dose: 200 mls/hr Dextrose (Dextrose 5% In Water 1000 Ml) 1,000 mls @ 0 mls/hr IV .Q0M PRN; Protocol PRN Reason: Hypoglycemia Protocol Levofloxacin/Dextrose (Levaquin 250mg) 250 mg in 50 mls @ 50 mls/hr IVPB DAILY [facility]; Protocol Stop: 07/08/18 19:58 Last Admin: 07/05/18 11:06 Dose: 50 mls/hr Sodium Chloride (Sodium Chloride 0.45%) 1,000 mls @ 60 mls/hr IV .[id number] [facility] Last Admin: 07/05/18 11:37 Dose: 60 mls/hr Insulin Human Lispro (Humalog Low) 0 units SC ACHS [facility]; Protocol Last Admin: 07/05/18 11:17 Dose: 2 units Levetiracetam (Keppra) 500 mg PO BID [facility] Last Admin: 07/05/18 11:09 Dose: 500 mg Megestrol Acetate (Megace) 40 mg PO DAILY [facility] Last Admin: 07/05/18 11:02 Dose: 40 mg Metoprolol Succinate (Toprol Xl) 50 mg PO DAILY [facility] Last Admin: 07/05/18 11:08 Dose: 50 mg Mupirocin (Bactroban Ointment) 0 gm TOP DAILY [facility] Last Admin: 07/05/18 11:09 Dose: 1 applic Ondansetron HCl (Zofran Inj) 4 mg IVP Q4H PRN PRN Reason: Nausea/Vomiting Last Admin: 07/03/18 02:21 Dose: 4 mg Pantoprazole Sodium (Protonix Inj) 40 mg IVP DAILY [facility] Last Admin: 07/05/18 11:03 Dose: 40 mg Sodium Bicarbonate (Sodium Bicarbonate Tab) 1,300 mg PO QID [facility] Last Admin: 07/05/18 11:01 Dose: 1,300 mg Vitamin B Complex/Vit C/Folic Acid (Nephro-Jenny) 1 tab PO 0800 [facility] Last Admin: 07/05/18 11:02 Dose: 1 tab - Labs Labs: 07/05/18 08:00 07/05/18 08:00 PT 14.4 SECONDS (9.4-12.5) H 07/02/18 16:15 INR 1.30 07/02/18 16:15 APTT 39.1 Seconds (26.9-38.3) H 07/02/18 16:15 Attending/Attestation - Attestation I have personally seen and examined this patient.: Yes I have fully participated in the care of the patient.: Yes I have reviewed all pertinent clinical information, including history, physical exam and plan: Yes Notes (Text): 07/05/18 14:15 I have seen and examined patient with GI fellow. No acute events overnight, she is seen sitting in chair and appears quite comfortable. She denies abdominal pain, nausea, vomiting, fever/chills, melena. Tolerating PO diet without difficulty. CKD DM/HTN PVD Anemia - likely secondary to chronic disease, no clinical evidence of overt ble eding noted - Diet as tolerated - Continue to monitor H/H - Follow up hematology recommendations - Obtain prior endoscopy reports - After hospital discharge patient will follow up with her primary GI physician Dr. Monte. No additional planned GI intervention, will sign off case. Please reconsult as necessary, thank you.
[2018-07-05] MEDS: Insulin Lispro (humaLOG) LOW Coverage SC SCH ×4 (10:45→22:21)
[2018-07-05] MEDS: Sodium Chloride 0.9% 1,000 ML IV SCH (11:00)
[2018-07-05] MEDS: Multivitamin Vitamin B Complex (Nephro-Vite) Tab PO SCH (11:02)
[2018-07-05] MEDS: MEROPENEM 500 MG in NS 500 MG/50 ML BAG IVPB SCH ×2 (11:05→22:22)
[2018-07-05] MEDS: Linezolid 600 mg in D5W 300 ml 600 MG/300 ML BAG IVPB SCH (11:06)
[2018-07-05] MEDS: levoFLOXacin 250 mg in D5W 250 MG/50 ML BAG IVPB SCH (11:06)
[2018-07-05] MEDS: Metoprolol Succinate 50 mg XL Tab PO SCH (11:08)
[2018-07-05] MEDS: Mupirocin 2% Ointment 15 GM TUBE TOP SCH (11:09)
[2018-07-05] MEDS: Sodium Chloride 0.45% 1,000 ML IV SCH (11:37)
--- NOTE | 2018-07-05 11:41 | CP.PCM.PN ---
<Cleo Xavier - Last Filed: 07/05/18 11:39> Subjective - Date & Time of Evaluation Date of Evaluation: 07/05/18 Time of Evaluation: 11:39 - Subjective Subjective: Podiatry progress note for Drs. Raymond/Twila 62 y/o female seen and evaluated at bedside. Patient denies any acute overnight events. Patient dressing clean, dry and intact. Patient seen to be sitting in chair at bedside. Objective - Vital Signs/Intake and Output Vital Signs (last 24 hours): Temp Pulse Resp BP Pulse Ox 97.9 F 98 H 18 151/68 H 98 07/05/18 06:00 07/05/18 11:08 07/05/18 06:00 07/05/18 11:08 07/05/18 06:00 Intake and Output: 07/05/18 07/05/18 06:59 18:59 Intake Total 900 480 Output Total 800 Balance 900 -320 - Medications Medications: Current Medications Acetaminophen (Tylenol 650 Mg Supp) 650 mg RC Q4H PRN PRN Reason: Fever >100.4 F Aspirin (Ecotrin) 81 mg PO DAILY [facility] Last Admin: 07/05/18 11:02 Dose: 81 mg Cyanocobalamin (Vitamin B12 1000 Mcg Tab) 500 mcg PO DAILY [facility] Last Admin: 07/05/18 11:03 Dose: 500 mcg Darbepoetin Brown (Aranesp) 100 mcg SC QWK [facility] Last Admin: 07/03/18 11:04 Dose: 100 mcg Dextrose (Dextrose 50% Inj) 0 ml IV STAT PRN; Protocol PRN Reason: Hypoglycemia Protocol Ferrous Gluconate (Fergon) 324 mg PO TID [facility] Last Admin: 07/05/18 11:10 Dose: 324 mg Heparin Sodium (Porcine) (Heparin) 5,000 units SC Q8 [facility]; Protocol Last Admin: 07/03/18 13:14 Dose: 5,000 units Meropenem/Sodium Chloride (Merrem Iv 500 Mg/Ns 50 Ml) 500 mg in 50 mls @ 100 mls/hr IVPB Q12 [facility]; Protocol Stop: 07/11/18 22:01 Last Admin: 07/05/18 11:05 Dose: 100 mls/hr Linezolid (Zyvox 600mg/300ml D5w) 600 mg in 300 mls @ 200 mls/hr IVPB Q12 [facility]; Protocol Stop: 07/11/18 22:01 Last Admin: 07/05/18 11:06 Dose: 200 mls/hr Dextrose (Dextrose 5% In Water 1000 Ml) 1,000 mls @ 0 mls/hr IV .Q0M PRN; Protocol PRN Reason: Hypoglycemia Protocol Levofloxacin/Dextrose (Levaquin 250mg) 250 mg in 50 mls @ 50 mls/hr IVPB DAILY [facility]; Protocol Stop: 07/08/18 19:58 Last Admin: 07/05/18 11:06 Dose: 50 mls/hr Sodium Chloride (Sodium Chloride 0.45%) 1,000 mls @ 60 mls/hr IV .[id number] [facility] Last Admin: 07/05/18 11:37 Dose: 60 mls/hr Insulin Human Lispro (Humalog Low) 0 units SC ACHS [facility]; Protocol Last Admin: 07/05/18 11:17 Dose: 2 units Levetiracetam (Keppra) 500 mg PO BID [facility] Last Admin: 07/05/18 11:09 Dose: 500 mg Megestrol Acetate (Megace) 40 mg PO DAILY [facility] Last Admin: 07/05/18 11:02 Dose: 40 mg Metoprolol Succinate (Toprol Xl) 50 mg PO DAILY [facility] Last Admin: 07/05/18 11:08 Dose: 50 mg Mupirocin (Bactroban Ointment) 0 gm TOP DAILY [facility] Last Admin: 07/05/18 11:09 Dose: 1 applic Ondansetron HCl (Zofran Inj) 4 mg IVP Q4H PRN PRN Reason: Nausea/Vomiting Last Admin: 07/03/18 02:21 Dose: 4 mg Pantoprazole Sodium (Protonix Inj) 40 mg IVP DAILY [facility] Last Admin: 07/05/18 11:03 Dose: 40 mg Sodium Bicarbonate (Sodium Bicarbonate Tab) 1,300 mg PO QID [facility] Last Admin: 07/05/18 11:01 Dose: 1,300 mg Vitamin B Complex/Vit C/Folic Acid (Nephro-Jenny) 1 tab PO 0800 [facility] Last Admin: 07/05/18 11:02 Dose: 1 tab - Labs Labs: 07/05/18 08:00 07/05/18 08:00 PT 14.4 SECONDS (9.4-12.5) H 07/02/18 16:15 INR 1.30 07/02/18 16:15 APTT 39.1 Seconds (26.9-38.3) H 07/02/18 16:15 - Constitutional Appears: Well, Non-toxic, No Acute Distress - Head Exam Head Exam: ATRAUMATIC, NORMOCEPHALIC - Extremities Exam Additional comments: Lower extremity focused examination: Vasc: DP/PT pulses palpable 2/4 B/L. Temperature gradient warm to warm from proximal to distal. Cap refill time: < 3 sec to all digits, mild non-pitting edema noted on bilateral LE (R>L) Neuro: Protective sensation is grossly intact B/L Derm: Right- right lateral malleolar ulceration measuring about 1 cm X 1 cm with overlying eschar, significant inflammation noted gianluca wound, positive erythema and drainage, tender on palpation, plantar fissure noted with dry blood Left- left submetatarsal 5th ulceration with positive drainage and gianluca wound erythema, multiple other hyperkeratotic lesions noted MSK: No pain on palpation of the foot wound. Left ankle ulceration mildly tender - Neurological Exam Neurological Exam: Alert, Awake, Oriented x3 - Psychiatric Exam Psychiatric exam: Normal Affect, Normal Mood Assessment and Plan - Assessment and Plan (Free Text) Assessment: 62 y/o female sent to ED for admission for IV Abx due to clinical infected wounds Plan: Patient seen and evaluated with Dr. Segundo Acevedo discussed Chart, labs and vitals reviewed- afebrile at this time, WBC 4.1 from 13.4 on admission, H/H 8.3/25.8 Foot Xray- no evidence of acute osteomyelitis noted Ordered B/L LE MRI without contrast Wound Culture- MRSA; Wound culture from 06/25: MRSA All wound dressed with bactroban and Mepilex foam Continue IV Abx Continue medical management as per primary team Podiatry will continue to follow patient while in house <Jose Raymond - Last Filed: 07/06/18 08:39> Objective - Vital Signs/Intake and Output Vital Signs (last 24 hours): Temp Pulse Resp BP Pulse Ox 98 F 91 H 18 144/69 100 07/06/18 05:57 07/06/18 05:57 07/06/18 05:57 07/06/18 05:57 07/06/18 05:57 Intake and Output: 07/06/18 07/06/18 06:59 18:59 Intake Total 1999 Balance 1999 - Medications Medications: Current Medications Acetaminophen (Tylenol 650 Mg Supp) 650 mg RC Q4H PRN PRN Reason: Fever >100.4 F Aspirin (Ecotrin) 81 mg PO DAILY [facility] Last Admin: 07/05/18 11:02 Dose: 81 mg Cyanocobalamin (Vitamin B12 1000 Mcg Tab) 500 mcg PO DAILY [facility] Last Admin: 07/05/18 11:03 Dose: 500 mcg Darbepoetin Brown (Aranesp) 100 mcg SC QWK [facility] Last Admin: 07/03/18 11:04 Dose: 100 mcg Dextrose (Dextrose 50% Inj) 0 ml IV STAT PRN; Protocol PRN Reason: Hypoglycemia Protocol Ferrous Gluconate (Fergon) 324 mg PO TID [facility] Last Admin: 07/05/18 17:56 Dose: 324 mg Heparin Sodium (Porcine) (Heparin) 5,000 units SC Q8 [facility]; Protocol Last Admin: 07/03/18 13:14 Dose: 5,000 units Meropenem/Sodium Chloride (Merrem Iv 500 Mg/Ns 50 Ml) 500 mg in 50 mls @ 100 mls/hr IVPB Q12 [facility]; Protocol Stop: 07/11/18 22:01 Last Admin: 07/05/18 22:22 Dose: 100 mls/hr Dextrose (Dextrose 5% In Water 1000 Ml) 1,000 mls @ 0 mls/hr IV .Q0M PRN; Protocol PRN Reason: Hypoglycemia Protocol Sodium Chloride (Sodium Chloride 0.45%) 1,000 mls @ 60 mls/hr IV .[id number] [facility] Last Admin: 07/05/18 11:37 Dose: 60 mls/hr Insulin Human Lispro (Humalog Low) 0 units SC ACHS [facility]; Protocol Last Admin: 07/05/18 22:21 Dose: Not Given Levetiracetam (Keppra) 500 mg PO BID [facility] Last Admin: 07/05/18 11:09 Dose: 500 mg Linezolid (Zyvox) 600 mg PO BID [facility]; Protocol Stop: 07/15/18 10:01 Megestrol Acetate (Megace) 40 mg PO DAILY [facility] Last Admin: 07/05/18 11:02 Dose: 40 mg Metoprolol Succinate (Toprol Xl) 50 mg PO DAILY [facility] Last Admin: 07/05/18 11:08 Dose: 50 mg Mupirocin (Bactroban Ointment) 0 gm TOP DAILY [facility] Last Admin: 07/05/18 11:09 Dose: 1 applic Ondansetron HCl (Zofran Inj) 4 mg IVP Q4H PRN PRN Reason: Nausea/Vomiting Last Admin: 07/03/18 02:21 Dose: 4 mg Pantoprazole Sodium (Protonix Inj) 40 mg IVP DAILY [facility] Last Admin: 07/05/18 11:03 Dose: 40 mg Sodium Bicarbonate (Sodium Bicarbonate Tab) 1,300 mg PO QID [facility] Last Admin: 07/05/18 22:22 Dose: 1,300 mg Vitamin B Complex/Vit C/Folic Acid (Nephro-Jenny) 1 tab PO 0800 [facility] Last Admin: 07/05/18 11:02 Dose: 1 tab - Labs Labs: 07/05/18 08:00 07/05/18 08:00 PT 14.4 SECONDS (9.4-12.5) H 07/02/18 16:15 INR 1.30 07/02/18 16:15 APTT 39.1 Seconds (26.9-38.3) H 07/02/18 16:15 Attending/Attestation - Attestation I have personally seen and examined this patient.: Yes I have fully participated in the care of the patient.: Yes I have reviewed all pertinent clinical information, including history, physical exam and plan: Yes
--- NOTE | 2018-07-05 12:10 | CP.PCM.PN ---
<Александр Vaz - Last Filed: 07/05/18 11:55> Subjective - Date & Time of Evaluation Date of Evaluation: 07/05/18 Time of Evaluation: 08:00 - Subjective Subjective: Александр Vaz PGY1 Medicine Progress Note for Dr. Haque Patient seen and examined at bedside this morning. Patient afebrile overnight. Tachycardia has resolved. She denies chest pain, sob, abdominal pain, n/v/d, fever, chills, fatigue. A full 12 point ROS was conducted and unremarkable except as stated above. Objective - Vital Signs/Intake and Output Vital Signs (last 24 hours): Temp Pulse Resp BP Pulse Ox 97.9 F 98 H 18 151/68 H 98 07/05/18 06:00 07/05/18 11:08 07/05/18 06:00 07/05/18 11:08 07/05/18 06:00 Intake and Output: 07/05/18 07/05/18 06:59 18:59 Intake Total 900 480 Output Total 800 Balance 900 -320 - Medications Medications: Current Medications Acetaminophen (Tylenol 650 Mg Supp) 650 mg RC Q4H PRN PRN Reason: Fever >100.4 F Aspirin (Ecotrin) 81 mg PO DAILY [facility] Last Admin: 07/05/18 11:02 Dose: 81 mg Cyanocobalamin (Vitamin B12 1000 Mcg Tab) 500 mcg PO DAILY [facility] Last Admin: 07/05/18 11:03 Dose: 500 mcg Darbepoetin Brown (Aranesp) 100 mcg SC QWK [facility] Last Admin: 07/03/18 11:04 Dose: 100 mcg Dextrose (Dextrose 50% Inj) 0 ml IV STAT PRN; Protocol PRN Reason: Hypoglycemia Protocol Ferrous Gluconate (Fergon) 324 mg PO TID [facility] Last Admin: 07/05/18 11:10 Dose: 324 mg Heparin Sodium (Porcine) (Heparin) 5,000 units SC Q8 [facility]; Protocol Last Admin: 07/03/18 13:14 Dose: 5,000 units Meropenem/Sodium Chloride (Merrem Iv 500 Mg/Ns 50 Ml) 500 mg in 50 mls @ 100 mls/hr IVPB Q12 [facility]; Protocol Stop: 07/11/18 22:01 Last Admin: 07/05/18 11:05 Dose: 100 mls/hr Linezolid (Zyvox 600mg/300ml D5w) 600 mg in 300 mls @ 200 mls/hr IVPB Q12 [facility]; Protocol Stop: 07/11/18 22:01 Last Admin: 07/05/18 11:06 Dose: 200 mls/hr Dextrose (Dextrose 5% In Water 1000 Ml) 1,000 mls @ 0 mls/hr IV .Q0M PRN; Protocol PRN Reason: Hypoglycemia Protocol Levofloxacin/Dextrose (Levaquin 250mg) 250 mg in 50 mls @ 50 mls/hr IVPB DAILY [facility]; Protocol Stop: 07/08/18 19:58 Last Admin: 07/05/18 11:06 Dose: 50 mls/hr Sodium Chloride (Sodium Chloride 0.45%) 1,000 mls @ 60 mls/hr IV .[id number] [facility] Last Admin: 07/05/18 11:37 Dose: 60 mls/hr Insulin Human Lispro (Humalog Low) 0 units SC ACHS [facility]; Protocol Last Admin: 07/05/18 11:17 Dose: 2 units Levetiracetam (Keppra) 500 mg PO BID [facility] Last Admin: 07/05/18 11:09 Dose: 500 mg Megestrol Acetate (Megace) 40 mg PO DAILY [facility] Last Admin: 07/05/18 11:02 Dose: 40 mg Metoprolol Succinate (Toprol Xl) 50 mg PO DAILY [facility] Last Admin: 07/05/18 11:08 Dose: 50 mg Mupirocin (Bactroban Ointment) 0 gm TOP DAILY [facility] Last Admin: 07/05/18 11:09 Dose: 1 applic Ondansetron HCl (Zofran Inj) 4 mg IVP Q4H PRN PRN Reason: Nausea/Vomiting Last Admin: 07/03/18 02:21 Dose: 4 mg Pantoprazole Sodium (Protonix Inj) 40 mg IVP DAILY [facility] Last Admin: 07/05/18 11:03 Dose: 40 mg Sodium Bicarbonate (Sodium Bicarbonate Tab) 1,300 mg PO QID [facility] Last Admin: 07/05/18 11:01 Dose: 1,300 mg Vitamin B Complex/Vit C/Folic Acid (Nephro-Jenny) 1 tab PO 0800 [facility] Last Admin: 07/05/18 11:02 Dose: 1 tab - Labs Labs: 07/05/18 08:00 07/05/18 08:00 PT 14.4 SECONDS (9.4-12.5) H 07/02/18 16:15 INR 1.30 07/02/18 16:15 APTT 39.1 Seconds (26.9-38.3) H 07/02/18 16:15 - Constitutional Appears: Non-toxic, No Acute Distress - Head Exam Head Exam: ATRAUMATIC, NORMAL INSPECTION, NORMOCEPHALIC - Eye Exam Eye Exam: EOMI, Normal appearance Pupil Exam: NORMAL ACCOMODATION - ENT Exam ENT Exam: Mucous Membranes Dry - Neck Exam Neck exam: Positive for: Normal Inspection - Respiratory Exam Respiratory Exam: Clear to Auscultation Bilateral, NORMAL BREATHING PATTERN. absent: Accessory Muscle Use, Chest Wall Tenderness, Rales, Rhonchi, Wheezes, Stridor - Cardiovascular Exam Cardiovascular Exam: RRR, +S1, +S2 - GI/Abdominal Exam GI & Abdominal Exam: Normal Bowel Sounds, Soft. absent: Firm, Guarding, Rebound, Rigid, Tenderness Additional comments: No suprapubic tenderness. - Extremities Exam Extremities exam: Positive for: pedal pulses present. Negative for: tenderness Additional comments: Mild erythema noted at the lateral aspect of the right heel - improved significantly since prior exam; dressing is in place. No drainage or bleeding. Distal pulses are intact. Evidence of multiple toe amputations. Skin is dry and warm. - Neurological Exam Neurological exam: Alert, CN II-XII Intact, Oriented x3 - Psychiatric Exam Psychiatric exam: Normal Affect, Normal Mood - Skin Skin Exam: Dry, Intact, Normal Color, Warm Assessment and Plan - Assessment and Plan (Free Text) Assessment: Patient is a 62 year old female with PMHx DM2 (last A1c 6.8), HTN, CKD Stage IV, Osteoarthritis, Anemia of Chronic Kidney Disease, Seizures, Hearing Loss, and Osteomyelitis presents [place] [facility] as advised by her gas worker, Dr. Raymond, for evaluation of R-heel cellulitis and left 5th metatarsal ulceration. Patient admitted for severe sepsis 2/2 right heel cellulitis with left 5th metatarsal ulceration vs PNA. Hospital course also complicated by acute on chronic anemia. Plan: Severe Sepsis 2/2 Right Heel Cellulitis with Left 5th Metatarsal Ulceration vs LLL PNA - fever, leukocytosis, and tachycardia resolved - tapered IVF NS @ 75 cc/hr - monitor BP - c/w merrem, linezolid, and levaquin as per ID recommendations. Will d/w ID in regards to switching to PO antibiotics upon discharge. - f/u Bilateral LE MRI to r/o osteo - f/u wound Cx - Bilateral lower ext foot XRays: negative for osteo - Blood cx negative x2 (prelim) after 24 hours - UCx negative - CRP and ESR elevated. - Procal level elevated, 53 - ID placed on consult (Dr. Castellano). Recs appreciated. - Podiatry on consult (Dr. Raymond). Recs appreciated. - CXR: left lung base consolidation, suspicious for PNA. Acute on Chronic Anemia 2/2 Dilutional Component vs Anemia of chronic kidney disease - stable - Hgb 8.3. Total x1 pRBC transfusion during hospital course. Stable. - Direct Ayush test positive, Haptoglobin elevated, total bili is not elevated; this is likely not due to bleed. - Heme/onc on consult (Dr. Miguel). Will follow up recs. - CT A/P: no acute findings; no bleed - GI on consult (Dr. Soto). Recs appreciated. No plan for scope at this time. - f/u FOBT - MCV normocytic, Ferritin elevated 1680, TIBC 154 (low), Iron 10 (low), %saturation 7 (low) - Vitamin b12 and folate wnl - Nephro on consult. Recs appreciated. - c/w home med ferrous gluconate, vitamin b12, and sodium bicarb - Baseline Hgb 8-9 with Hx Anemia of Chronic Kidney Disease - Previous hx of endoscopy showing polypoid lesion (1 year ago) Hypokalemia - K 3.4 today - repleted - continue to monitor FREDY on CKD Stage IV - resolved - BUN/Cr 14/1.4 - resolved (baseline Cr 1.7) - monitor renal function - Nephro on consult (Dr. Reyes). Recs appreciated. DM II - ISS - Accuchecks HTN - c/w home med toprol XL - c/w home med aspirin 81mg daily GERD - c/w home med protonix Seizure - c/w home med keppra ppx: - hep sc (Hold) - ptx Diet: CCD Dispo: Continue to monitor patient at this time. Discontinued tele since sepsis and anemia has improved. Still pending MRI of the lower extremities to r/o osteo. Follow up recs from Heme/onc. Case was discussed and reviewed with Attending Physician, Dr. Haque <Luna Haque - Last Filed: 07/05/18 12:21> Objective - Vital Signs/Intake and Output Vital Signs (last 24 hours): Temp Pulse Resp BP Pulse Ox 97.9 F 98 H 18 151/68 H 98 07/05/18 06:00 07/05/18 11:08 07/05/18 06:00 07/05/18 11:08 07/05/18 06:00 Intake and Output: 07/05/18 07/05/18 06:59 18:59 Intake Total 900 480 Output Total 800 Balance 900 -320 - Medications Medications: Current Medications Acetaminophen (Tylenol 650 Mg Supp) 650 mg RC Q4H PRN PRN Reason: Fever >100.4 F Aspirin (Ecotrin) 81 mg PO DAILY [facility] Last Admin: 07/05/18 11:02 Dose: 81 mg Cyanocobalamin (Vitamin B12 1000 Mcg Tab) 500 mcg PO DAILY [facility] Last Admin: 07/05/18 11:03 Dose: 500 mcg Darbepoetin Brown (Aranesp) 100 mcg SC QWK [facility] Last Admin: 07/03/18 11:04 Dose: 100 mcg Dextrose (Dextrose 50% Inj) 0 ml IV STAT PRN; Protocol PRN Reason: Hypoglycemia Protocol Ferrous Gluconate (Fergon) 324 mg PO TID [facility] Last Admin: 07/05/18 11:10 Dose: 324 mg Heparin Sodium (Porcine) (Heparin) 5,000 units SC Q8 [facility]; Protocol Last Admin: 07/03/18 13:14 Dose: 5,000 units Meropenem/Sodium Chloride (Merrem Iv 500 Mg/Ns 50 Ml) 500 mg in 50 mls @ 100 mls/hr IVPB Q12 [facility]; Protocol Stop: 07/11/18 22:01 Last Admin: 07/05/18 11:05 Dose: 100 mls/hr Linezolid (Zyvox 600mg/300ml D5w) 600 mg in 300 mls @ 200 mls/hr IVPB Q12 [facility]; Protocol Stop: 07/11/18 22:01 Last Admin: 07/05/18 11:06 Dose: 200 mls/hr Dextrose (Dextrose 5% In Water 1000 Ml) 1,000 mls @ 0 mls/hr IV .Q0M PRN; Protocol PRN Reason: Hypoglycemia Protocol Levofloxacin/Dextrose (Levaquin 250mg) 250 mg in 50 mls @ 50 mls/hr IVPB DAILY [facility]; Protocol Stop: 07/08/18 19:58 Last Admin: 07/05/18 11:06 Dose: 50 mls/hr Sodium Chloride (Sodium Chloride 0.45%) 1,000 mls @ 60 mls/hr IV .[id number] [facility] Last Admin: 07/05/18 11:37 Dose: 60 mls/hr Insulin Human Lispro (Humalog Low) 0 units SC ACHS [facility]; Protocol Last Admin: 07/05/18 11:17 Dose: 2 units Levetiracetam (Keppra) 500 mg PO BID [facility] Last Admin: 07/05/18 11:09 Dose: 500 mg Megestrol Acetate (Megace) 40 mg PO DAILY [facility] Last Admin: 07/05/18 11:02 Dose: 40 mg Metoprolol Succinate (Toprol Xl) 50 mg PO DAILY [facility] Last Admin: 07/05/18 11:08 Dose: 50 mg Mupirocin (Bactroban Ointment) 0 gm TOP DAILY [facility] Last Admin: 07/05/18 11:09 Dose: 1 applic Ondansetron HCl (Zofran Inj) 4 mg IVP Q4H PRN PRN Reason: Nausea/Vomiting Last Admin: 07/03/18 02:21 Dose: 4 mg Pantoprazole Sodium (Protonix Inj) 40 mg IVP DAILY [facility] Last Admin: 07/05/18 11:03 Dose: 40 mg Sodium Bicarbonate (Sodium Bicarbonate Tab) 1,300 mg PO QID [facility] Last Admin: 07/05/18 11:01 Dose: 1,300 mg Vitamin B Complex/Vit C/Folic Acid (Nephro-Jenny) 1 tab PO 0800 [facility] Last Admin: 07/05/18 11:02 Dose: 1 tab - Labs Labs: 07/05/18 08:00 07/05/18 08:00 PT 14.4 SECONDS (9.4-12.5) H 07/02/18 16:15 INR 1.30 07/02/18 16:15 APTT 39.1 Seconds (26.9-38.3) H 07/02/18 16:15 Attending/Attestation - Attestation I have personally seen and examined this patient.: Yes I have fully participated in the care of the patient.: Yes I have reviewed all pertinent clinical information, including history, physical exam and plan: Yes Notes (Text): 07/05/18 12:18 62 year old female with past medical history of diabetes, hypertension, CKD, ost eomyelitis and seizures who was referred by her gas worker for right heel cellulitis and left 5th metatarsal ulceration. She was recently prescribed outpatient antibiotics. Also found to have acute anemia, acute on chronic renal failure and left side pneumonia. Continue with wound care as per podiatry. Continue with iv antibiotics as per ID. MRI lower extremities at this time is pending to rule out osteomyelitis. GI evaluation was appreciated for acute anemia. CT abd/pelvis was negative for acute findings. Recent EGD last year reviewed as above. No plan per GI to repeat EGD at this time. Recommended outpatient capsule endoscopy. She received one unit prbc and dose of aranesp since admission. Her hemoglobin has improved since then. Will follow up with hematology recommendations. Nephrology is following for acute on chronic renal disease which has improved. Will resume toprol xl. Luna Haque MD Hospitalist.
--- NOTE | 2018-07-05 13:05 | CP.PCM.PN ---
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 No ACEI/ARB due to FREDY and recurrent hyperkalemia. maintain hemodynamics stable. avoid hypotension Monitor Input/Output, daily weights and renal function with basic metabolic panel continue Sodium bicarb 1300 mg QID dose of ananesp 100 mcg on 07/03/18, as needed PRBC transfusion. On iron and MVI continue with IVF but change to 0.45% saline as her her serum Na on higher side. podiatry ID GI following supplement lytes as needed Dose meds/antibiotics for reduced GFR. Avoid fleets enema/magnesium based laxatives. Avoid nephrotoxins/NSAIDs/ iodinated contrast (unless needed emergently) Glycemic control Further work up/management as per primary team Thanks for allowing me to participate in care of your patient. Will follow patient with you. Please call if any Qs. had d/w team Dr Javier Reyes Office: [phone] CC; heel wound/ulcer reason for consult: CKD management HPI: Pt is a 62 y/o F with hx of diabetes Mellitus ( x 8-9 years) with retinopathy, hypertension, hearing loss, esophageal stenosis, chronic anemia, basal cell CA on nasal skin s/p removal, recurrent AKIs, now has CKD stage 3 with anemia, RTA and hyperkalemia, seizure came with feet wound and infection with sepsis renal consult for CKD management. Denies chest pain, palpitation, shortness of breath, leg swelling. Had chronic loose stool 2-3 times/day but better now a days. ROS: pt c/o skin rash but better. no CP/SOB. no pain abdomen. all other negative except feet wound General Appearance: comfortable, in no acute respiratory distress, co-operative. thin built. Vitals reviewed and noted Head; Atraumatic, normocephalic ENT: no ulcers no thrush. Tongue is midline. Oropharynx: no rash or ulcers. Hard of hearing. Uses hearing aid. EYES: Pupils are equal, round and reactive to light accommodation. Eye muscles and extraocular movement intact. Sclera is anicteric. Neck; supple no lymphadenopathy, no thyromegaly or bruit Lungs: Normal respiratory rate/effort. Breath sounds bilateral equal and clear Heart: Increased rate. s1s2 normal. No rub or gallop. Extremities: no edema with wound dressed at feet. No varicose veins. Hand osteoarthritic deformities +. Neurological: Patient is alert, awake and oriented to person, place and time. No focal deficit. Strength bilateral appropriate and equal Skin: Warm and dry. Normal turgor. Palpitation: Normal elasticity for age. has erythemtous rash in upper extremities Abdomen: Abdomen is soft. Bowel sounds +. There is no abdominal tenderness, no guarding/rigidity or organomegaly Psych: normal insight and normal affect/mood MSK: no joint tenderness or swelling. : kidney or bladder not palpable Labs/imaging reviewed. Past medical history, past surgical history, family history, social history, allergy reviewed and noted as below Family hx: no hx of CKD. Rest non-contributory Work up: 09/13/2016: GN serologies all negative, scleroderma work up neg, SPEP/LUDY neg Renal sono: b/l cortical atrophy. Small 1 cm Rt kidney simple cyst. Objective - Vital Signs/Intake and Output Vital Signs (last 24 hours): Temp Pulse Resp BP Pulse Ox 98 F 126 H 20 143/75 98 07/05/18 12:00 07/05/18 12:00 07/05/18 12:00 07/05/18 12:00 07/05/18 06:00 Intake and Output: 07/05/18 07/05/18 06:59 18:59 Intake Total 900 480 Output Total 800 Balance 900 -320 - Medications Medications: Current Medications Acetaminophen (Tylenol 650 Mg Supp) 650 mg RC Q4H PRN PRN Reason: Fever >100.4 F Aspirin (Ecotrin) 81 mg PO DAILY [facility] Last Admin: 07/05/18 11:02 Dose: 81 mg Cyanocobalamin (Vitamin B12 1000 Mcg Tab) 500 mcg PO DAILY [facility] Last Admin: 07/05/18 11:03 Dose: 500 mcg Darbepoetin Brown (Aranesp) 100 mcg SC QWK [facility] Last Admin: 07/03/18 11:04 Dose: 100 mcg Dextrose (Dextrose 50% Inj) 0 ml IV STAT PRN; Protocol PRN Reason: Hypoglycemia Protocol Ferrous Gluconate (Fergon) 324 mg PO TID [facility] Last Admin: 07/05/18 11:10 Dose: 324 mg Heparin Sodium (Porcine) (Heparin) 5,000 units SC Q8 [facility]; Protocol Last Admin: 07/03/18 13:14 Dose: 5,000 units Meropenem/Sodium Chloride (Merrem Iv 500 Mg/Ns 50 Ml) 500 mg in 50 mls @ 100 mls/hr IVPB Q12 [facility]; Protocol Stop: 07/11/18 22:01 Last Admin: 07/05/18 11:05 Dose: 100 mls/hr Linezolid (Zyvox 600mg/300ml D5w) 600 mg in 300 mls @ 200 mls/hr IVPB Q12 [facility]; Protocol Stop: 07/11/18 22:01 Last Admin: 07/05/18 11:06 Dose: 200 mls/hr Dextrose (Dextrose 5% In Water 1000 Ml) 1,000 mls @ 0 mls/hr IV .Q0M PRN; Protocol PRN Reason: Hypoglycemia Protocol Levofloxacin/Dextrose (Levaquin 250mg) 250 mg in 50 mls @ 50 mls/hr IVPB DAILY [facility]; Protocol Stop: 07/08/18 19:58 Last Admin: 07/05/18 11:06 Dose: 50 mls/hr Sodium Chloride (Sodium Chloride 0.45%) 1,000 mls @ 60 mls/hr IV .[id number] [facility] Last Admin: 07/05/18 11:37 Dose: 60 mls/hr Insulin Human Lispro (Humalog Low) 0 units SC ACHS [facility]; Protocol Last Admin: 07/05/18 11:17 Dose: 2 units Levetiracetam (Keppra) 500 mg PO BID [facility] Last Admin: 07/05/18 11:09 Dose: 500 mg Megestrol Acetate (Megace) 40 mg PO DAILY [facility] Last Admin: 07/05/18 11:02 Dose: 40 mg Metoprolol Succinate (Toprol Xl) 50 mg PO DAILY [facility] Last Admin: 07/05/18 11:08 Dose: 50 mg Mupirocin (Bactroban Ointment) 0 gm TOP DAILY [facility] Last Admin: 07/05/18 11:09 Dose: 1 applic Ondansetron HCl (Zofran Inj) 4 mg IVP Q4H PRN PRN Reason: Nausea/Vomiting Last Admin: 07/03/18 02:21 Dose: 4 mg Pantoprazole Sodium (Protonix Inj) 40 mg IVP DAILY [facility] Last Admin: 07/05/18 11:03 Dose: 40 mg Sodium Bicarbonate (Sodium Bicarbonate Tab) 1,300 mg PO QID [facility] Last Admin: 07/05/18 11:01 Dose: 1,300 mg Vitamin B Complex/Vit C/Folic Acid (Nephro-Jenny) 1 tab PO 0800 [facility] Last Admin: 07/05/18 11:02 Dose: 1 tab - Labs Labs: 07/05/18 08:00 07/05/18 08:00 PT 14.4 SECONDS (9.4-12.5) H 07/02/18 16:15 INR 1.30 07/02/18 16:15 APTT 39.1 Seconds (26.9-38.3) H 07/02/18 16:15
--- NOTE | 2018-07-06 00:57 | PN ---
DATE: 07/05/2018 SUBJECTIVE: The patient was seen earlier this morning in room 262, bed 1. PHYSICAL EXAMINATION: VITAL SIGNS: The patient has temperature of 98, blood pressure is 105/60, respiratory rate of 20, heart rate of 126. HEENT: Unremarkable. NECK: Supple. LUNGS: Decreased breath sounds. HEART: Normal S1, S2. ABDOMEN: Soft. LABORATORY EXAMINATION: Reveals a white count of 4.1, hemoglobin of 8, platelets of 273. Chemistries reveal a BUN of 14, creatinine of 1.4, and urinalysis is noted. Urine for Legionella antigen is negative. Microbiology reveals the foot cultures are pending. Urine cultures negative. Blood cultures are negative. CAT scan of the abdomen and pelvis is unremarkable. Dr. Haque's note is reviewed. ASSESSMENT AND PLAN: This is a 62-year-old female patient, admitted with multiple comorbidities, sepsis, left-sided healthcare associated pneumonia, multiple allergies; on Zyvox, meropenem, and Levaquin with a right heel cellulitis, also improving with urine Legionella negative. Urine cultures negative. Waiting for foot culture. On Levaquin, meropenem, and Zyvox. We will discontinue the Levaquin since the urine Legionella is negative. Change the Zyvox to p.o. pending the foot cultures. Should consider imaging to rule out underlying osteomyelitis of the right heel. Carroll Castellano MD
[2018-07-06] MEDS: Insulin Lispro (humaLOG) LOW Coverage SC SCH ×4 (08:00→21:33)
--- NOTE | 2018-07-06 09:05 | CP.PCM.PN ---
Subjective - Date & Time of Evaluation Date of Evaluation: 07/06/18 Time of Evaluation: 09:03 - Subjective Subjective: Podiatry progress note for Dr. Raymond 62F seen and examined at bedside this AM for b/l foot ulcerations. Patient resting comfortably and in NAD. Per chart no acute events overnight. Objective - Vital Signs/Intake and Output Vital Signs (last 24 hours): Temp Pulse Resp BP Pulse Ox 98 F 91 H 18 144/69 100 07/06/18 05:57 07/06/18 05:57 07/06/18 05:57 07/06/18 05:57 07/06/18 05:57 Intake and Output: 07/06/18 07/06/18 06:59 18:59 Intake Total 1999 Balance 1999 - Medications Medications: Current Medications Acetaminophen (Tylenol 650 Mg Supp) 650 mg RC Q4H PRN PRN Reason: Fever >100.4 F Aspirin (Ecotrin) 81 mg PO DAILY [facility] Last Admin: 07/05/18 11:02 Dose: 81 mg Cyanocobalamin (Vitamin B12 1000 Mcg Tab) 500 mcg PO DAILY [facility] Last Admin: 07/05/18 11:03 Dose: 500 mcg Darbepoetin Brown (Aranesp) 100 mcg SC QWK [facility] Last Admin: 07/03/18 11:04 Dose: 100 mcg Dextrose (Dextrose 50% Inj) 0 ml IV STAT PRN; Protocol PRN Reason: Hypoglycemia Protocol Ferrous Gluconate (Fergon) 324 mg PO TID [facility] Last Admin: 07/05/18 17:56 Dose: 324 mg Heparin Sodium (Porcine) (Heparin) 5,000 units SC Q8 [facility]; Protocol Last Admin: 07/03/18 13:14 Dose: 5,000 units Meropenem/Sodium Chloride (Merrem Iv 500 Mg/Ns 50 Ml) 500 mg in 50 mls @ 100 mls/hr IVPB Q12 [facility]; Protocol Stop: 07/11/18 22:01 Last Admin: 07/05/18 22:22 Dose: 100 mls/hr Dextrose (Dextrose 5% In Water 1000 Ml) 1,000 mls @ 0 mls/hr IV .Q0M PRN; Protocol PRN Reason: Hypoglycemia Protocol Sodium Chloride (Sodium Chloride 0.45%) 1,000 mls @ 60 mls/hr IV .[id number] [facility] Last Admin: 07/05/18 11:37 Dose: 60 mls/hr Insulin Human Lispro (Humalog Low) 0 units SC ACHS [facility]; Protocol Last Admin: 07/05/18 22:21 Dose: Not Given Levetiracetam (Keppra) 500 mg PO BID [facility] Last Admin: 07/05/18 11:09 Dose: 500 mg Linezolid (Zyvox) 600 mg PO BID [facility]; Protocol Stop: 07/15/18 10:01 Megestrol Acetate (Megace) 40 mg PO DAILY [facility] Last Admin: 07/05/18 11:02 Dose: 40 mg Metoprolol Succinate (Toprol Xl) 50 mg PO DAILY [facility] Last Admin: 07/05/18 11:08 Dose: 50 mg Mupirocin (Bactroban Ointment) 0 gm TOP DAILY [facility] Last Admin: 07/05/18 11:09 Dose: 1 applic Ondansetron HCl (Zofran Inj) 4 mg IVP Q4H PRN PRN Reason: Nausea/Vomiting Last Admin: 07/03/18 02:21 Dose: 4 mg Pantoprazole Sodium (Protonix Inj) 40 mg IVP DAILY [facility] Last Admin: 07/05/18 11:03 Dose: 40 mg Sodium Bicarbonate (Sodium Bicarbonate Tab) 1,300 mg PO QID [facility] Last Admin: 07/05/18 22:22 Dose: 1,300 mg Vitamin B Complex/Vit C/Folic Acid (Nephro-Jenny) 1 tab PO 0800 [facility] Last Admin: 07/05/18 11:02 Dose: 1 tab - Labs Labs: 07/05/18 08:00 07/05/18 08:00 PT 14.4 SECONDS (9.4-12.5) H 07/02/18 16:15 INR 1.30 07/02/18 16:15 APTT 39.1 Seconds (26.9-38.3) H 07/02/18 16:15 - Constitutional Appears: Non-toxic, No Acute Distress - Head Exam Head Exam: ATRAUMATIC, NORMOCEPHALIC - Extremities Exam Additional comments: Lower extremity focused examination: Vasc: DP/PT pulses palpable 2/4 B/L. Temperature gradient warm to warm from proximal to distal. Cap refill time: < 3 sec to all digits, mild non-pitting e kirstie noted on bilateral LE (R>L) Neuro: Protective sensation is grossly intact B/L Derm: Right- right lateral malleolar ulceration measuring about 1 cm X 1 cm with overlying eschar, significant inflammation noted gianluca wound, positive erythema and drainage, tender on palpation, plantar fissure noted with dry blood Left- left submetatarsal 5th ulceration with positive serous drainage and gianluca wound erythema MSK: No pain on palpation of the foot wound. Left ankle ulceration mildly tender - Neurological Exam Neurological Exam: Alert, Awake - Psychiatric Exam Psychiatric exam: Normal Affect, Normal Mood - Skin Skin Exam: Warm Assessment and Plan - Assessment and Plan (Free Text) Assessment: 62 y/o female with b/l foot ulcerations Plan: Patient seen and evaluated with Dr. Raymond Foot Xray- no evidence of acute osteomyelitis noted New wound culture taken; Wound culture from 06/25: MRSA Wound care: bactroban and Mepilex Continue IV Abx F/U MRI: Ordered B/L LE MRI without contrast
[2018-07-06] MEDS: Multivitamin Vitamin B Complex (Nephro-Vite) Tab PO SCH (10:05)
[2018-07-06] MEDS: MEROPENEM 500 MG in NS 500 MG/50 ML BAG IVPB SCH ×2 (10:06→21:18)
[2018-07-06] MEDS: Metoprolol Succinate 50 mg XL Tab PO SCH (10:16)
[2018-07-06] MEDS: Mupirocin 2% Ointment 15 GM TUBE TOP SCH (10:22)
--- NOTE | 2018-07-06 15:31 | CP.PCM.PN ---
<Jabier Herrera - Last Filed: 07/06/18 15:55> Subjective - Date & Time of Evaluation Date of Evaluation: 07/06/18 Time of Evaluation: 15:30 - Subjective Subjective: Jabier Herrera DO PGY-1 Internal Medicine [employer] - Hospitalist Progress Note Patient was seen and examined at bedside this morning; no acute events reported overnight. Patient voicing no complaints at bedside. Denies fevers, chills, chest pain, sob, abd pain, n/v/d/c, urinary complaints. Objective - Vital Signs/Intake and Output Vital Signs (last 24 hours): Temp Pulse Resp BP Pulse Ox 98.2 F 118 H 20 148/79 96 07/06/18 12:00 07/06/18 12:00 07/06/18 12:00 07/06/18 12:00 07/06/18 12:00 Intake and Output: 07/06/18 07/06/18 06:59 18:59 Intake Total 1999 Balance 1999 - Medications Medications: Current Medications Acetaminophen (Tylenol 650 Mg Supp) 650 mg RC Q4H PRN PRN Reason: Fever >100.4 F Aspirin (Ecotrin) 81 mg PO DAILY [facility] Last Admin: 07/06/18 10:04 Dose: 81 mg Cyanocobalamin (Vitamin B12 1000 Mcg Tab) 500 mcg PO DAILY [facility] Last Admin: 07/06/18 10:04 Dose: 500 mcg Darbepoetin Brown (Aranesp) 100 mcg SC QWK [facility] Last Admin: 07/03/18 11:04 Dose: 100 mcg Dextrose (Dextrose 50% Inj) 0 ml IV STAT PRN; Protocol PRN Reason: Hypoglycemia Protocol Ferrous Gluconate (Fergon) 324 mg PO TID [facility] Last Admin: 07/06/18 10:05 Dose: 324 mg Heparin Sodium (Porcine) (Heparin) 5,000 units SC Q8 [facility]; Protocol Last Admin: 07/03/18 13:14 Dose: 5,000 units Meropenem/Sodium Chloride (Merrem Iv 500 Mg/Ns 50 Ml) 500 mg in 50 mls @ 100 mls/hr IVPB Q12 [facility]; Protocol Stop: 07/11/18 22:01 Last Admin: 07/06/18 10:06 Dose: 100 mls/hr Dextrose (Dextrose 5% In Water 1000 Ml) 1,000 mls @ 0 mls/hr IV .Q0M PRN; Protocol PRN Reason: Hypoglycemia Protocol Sodium Chloride (Sodium Chloride 0.45%) 1,000 mls @ 60 mls/hr IV .[id number] [facility] Last Admin: 07/05/18 11:37 Dose: 60 mls/hr Insulin Human Lispro (Humalog Low) 0 units SC ACHS [facility]; Protocol Last Admin: 07/06/18 08:00 Dose: Not Given Levetiracetam (Keppra) 500 mg PO BID [facility] Last Admin: 07/06/18 10:05 Dose: 500 mg Linezolid (Zyvox) 600 mg PO BID [facility]; Protocol Stop: 07/15/18 10:01 Last Admin: 07/06/18 10:06 Dose: 600 mg Megestrol Acetate (Megace) 40 mg PO DAILY [facility] Last Admin: 07/06/18 10:04 Dose: 40 mg Metoprolol Succinate (Toprol Xl) 50 mg PO DAILY [facility] Last Admin: 07/06/18 10:16 Dose: 50 mg Mupirocin (Bactroban Ointment) 0 gm TOP DAILY [facility] Last Admin: 07/06/18 10:22 Dose: Not Given Ondansetron HCl (Zofran Inj) 4 mg IVP Q4H PRN PRN Reason: Nausea/Vomiting Last Admin: 07/03/18 02:21 Dose: 4 mg Pantoprazole Sodium (Protonix Inj) 40 mg IVP DAILY [facility] Last Admin: 07/06/18 10:06 Dose: 40 mg Sodium Bicarbonate (Sodium Bicarbonate Tab) 1,300 mg PO QID [facility] Last Admin: 07/06/18 10:04 Dose: 1,300 mg Vitamin B Complex/Vit C/Folic Acid (Nephro-Jenny) 1 tab PO 0800 [facility] Last Admin: 07/06/18 10:05 Dose: 1 tab - Labs Labs: 07/05/18 08:00 07/05/18 08:00 PT 14.4 SECONDS (9.4-12.5) H 07/02/18 16:15 INR 1.30 07/02/18 16:15 APTT 39.1 Seconds (26.9-38.3) H 07/02/18 16:15 - Constitutional Appears: Well, Non-toxic, No Acute Distress - Head Exam Head Exam: ATRAUMATIC, NORMOCEPHALIC - Eye Exam Eye Exam: EOMI, Normal appearance, PERRL - ENT Exam ENT Exam: Mucous Membranes Moist, Normal Exam - Respiratory Exam Respiratory Exam: Clear to Ausculation Bilateral, NORMAL BREATHING PATTERN - Cardiovascular Exam Cardiovascular Exam: RRR. absent: Murmur - GI/Abdominal Exam GI & Abdominal Exam: Soft. absent: Tenderness - Extremities Exam Additional comments: BL LE warm and dry to touch; optifoam dressings in place w/ no discharge/ erythema appreciated. Multiple amputations noted. - Neurological Exam Neurological Exam: Alert, Awake, CN II-XII Intact - Psychiatric Exam Psychiatric exam: Normal Affect, Normal Mood - Skin Skin Exam: Dry, Intact, Warm Assessment and Plan - Assessment and Plan (Free Text) Assessment: 62F PMHx DM2 (last A1c 6.8), HTN, CKD Stage IV, Osteoarthritis, Anemia of Chronic Kidney Disease, Seizures, Hearing Loss, and Osteomyelitis presented to [facility] referred from podiatry (Dr. Raymond) for R heel cellulitis and Left 5th metatarsal ulceration; noted to be in severe sepsis upon admission. Plan: R Heel Cellulitis w/ L 5th metatarsal ulceration Afebrile w/o leukocytosis C/w Merrem C/w Zyvox Wound Cx - growing gram positive cocci Blood Cx 07/02 - 04/13 negative to date BL LE MRI completed today; official read pending - r/o osteomyelitis ID Following, Appreciate Rec Podiatry Following, Appreciate [facility] on Stage IV CKD - Resolved BUN/Cr Improving at this time Vitamin B Complex/Vit C/Folic Acid (Nephro-Jenny) Nephro following Anemia - Dilutional vs Anemia of CKD ; Less likely suspect GI bleed s/p 1u PRBC Hb improving Darbepoetin Brown (Aranesp) 100 mcg SC QWK [facility] Ferrous Gluconate (Fergon) 324 mg PO TID [facility] Cyanocobalamin (Vitamin B12 1000 Mcg Tab) 500 mcg PO DAILY [facility] CT A/P: no acute findings; no bleed GI Consulted - no plans for acute EGD at this time; can f/u as outpt for capsule endoscopy Heme/Onc following appreciate [facility] Hx HTN Metoprolol Succinate (Toprol Xl) 50 mg PO DAILY [facility] Aspirin (Ecotrin) 81 mg PO DAILY [facility] Hx DM Insulin Human Lispro (Humalog Low) 0 units SC ACHS [facility]; Protocol Hx Seizure Levetiracetam (Keppra) 500 mg PO BID [facility] PPX: Hold Heparin due to anemia; SCD Protonix Dispo: Downgraded from telemetry 07/05; Continued inpatient management at this time for BL heel cellulitis; rule out osteo Patient was seen, examined, discussed w/ attending Dr. Shabnam Herrera DO PGY1 - Internal Medicine [employer] <Luna Haque - Last Filed: 07/06/18 16:33> Objective - Vital Signs/Intake and Output Vital Signs (last 24 hours): Temp Pulse Resp BP Pulse Ox 98.2 F 118 H 20 148/79 96 07/06/18 12:00 07/06/18 12:00 07/06/18 12:00 07/06/18 12:00 07/06/18 12:00 Intake and Output: 07/06/18 07/06/18 06:59 18:59 Intake Total 1999 Balance 1999 - Medications Medications: Current Medications Acetaminophen (Tylenol 650 Mg Supp) 650 mg RC Q4H PRN PRN Reason: Fever >100.4 F Aspirin (Ecotrin) 81 mg PO DAILY [facility] Last Admin: 07/06/18 10:04 Dose: 81 mg Cyanocobalamin (Vitamin B12 1000 Mcg Tab) 500 mcg PO DAILY [facility] Last Admin: 07/06/18 10:04 Dose: 500 mcg Darbepoetin Brown (Aranesp) 100 mcg SC QWK [facility] Last Admin: 07/03/18 11:04 Dose: 100 mcg Dextrose (Dextrose 50% Inj) 0 ml IV STAT PRN; Protocol PRN Reason: Hypoglycemia Protocol Ferrous Gluconate (Fergon) 324 mg PO TID [facility] Last Admin: 07/06/18 10:05 Dose: 324 mg Heparin Sodium (Porcine) (Heparin) 5,000 units SC Q8 [facility]; Protocol Last Admin: 07/03/18 13:14 Dose: 5,000 units Meropenem/Sodium Chloride (Merrem Iv 500 Mg/Ns 50 Ml) 500 mg in 50 mls @ 100 mls/hr IVPB Q12 [facility]; Protocol Stop: 07/11/18 22:01 Last Admin: 07/06/18 10:06 Dose: 100 mls/hr Dextrose (Dextrose 5% In Water 1000 Ml) 1,000 mls @ 0 mls/hr IV .Q0M PRN; Protocol PRN Reason: Hypoglycemia Protocol Sodium Chloride (Sodium Chloride 0.45%) 1,000 mls @ 60 mls/hr IV .[id number] [facility] Last Admin: 07/05/18 11:37 Dose: 60 mls/hr Insulin Human Lispro (Humalog Low) 0 units SC ACHS [facility]; Protocol Last Admin: 07/06/18 08:00 Dose: Not Given Levetiracetam (Keppra) 500 mg PO BID [facility] Last Admin: 07/06/18 10:05 Dose: 500 mg Linezolid (Zyvox) 600 mg PO BID [facility]; Protocol Stop: 07/15/18 10:01 Last Admin: 07/06/18 10:06 Dose: 600 mg Megestrol Acetate (Megace) 40 mg PO DAILY [facility] Last Admin: 07/06/18 10:04 Dose: 40 mg Metoprolol Succinate (Toprol Xl) 50 mg PO DAILY [facility] Last Admin: 07/06/18 10:16 Dose: 50 mg Mupirocin (Bactroban Ointment) 0 gm TOP DAILY [facility] Last Admin: 07/06/18 10:22 Dose: Not Given Ondansetron HCl (Zofran Inj) 4 mg IVP Q4H PRN PRN Reason: Nausea/Vomiting Last Admin: 07/03/18 02:21 Dose: 4 mg Pantoprazole Sodium (Protonix Inj) 40 mg IVP DAILY [facility] Last Admin: 07/06/18 10:06 Dose: 40 mg Sodium Bicarbonate (Sodium Bicarbonate Tab) 1,300 mg PO QID [facility] Last Admin: 07/06/18 10:04 Dose: 1,300 mg Vitamin B Complex/Vit C/Folic Acid (Nephro-Jenny) 1 tab PO 0800 [facility] Last Admin: 07/06/18 10:05 Dose: 1 tab - Labs Labs: 07/05/18 08:00 07/05/18 08:00 PT 14.4 SECONDS (9.4-12.5) H 07/02/18 16:15 INR 1.30 07/02/18 16:15 APTT 39.1 Seconds (26.9-38.3) H 07/02/18 16:15 Attending/Attestation - Attestation I have personally seen and examined this patient.: Yes I have fully participated in the care of the patient.: Yes I have reviewed all pertinent clinical information, including history, physical exam and plan: Yes Notes (Text): 07/06/18 16:26 62 year old female with past medical history of diabetes, hypertension, CKD, osteomyelitis and seizures who was 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 She was recently prescribed outpatient antibiotics. Also found to have acute anemia, acute on chronic renal failure and left side pneumonia. Continue with wound care as per podiatry. Continue with iv antibiotics as per ID. Wound culture is growing gram positive cocci. MRI lower extremities were done this morning with pending read to rule out osteomyelitis. GI evaluation was appreciated for acute anemia. CT abd/pelvis was negative for acute findings. Recent EGD last year reviewed as above. No plan per GI to repeat EGD at this time. Recommended outpatient capsule endoscopy. She received one unit prbc and dose of aranesp since admission. Her hemoglobin has improved since then. Labs today are pending. Will follow up with hematology recommendations. Nephrology is following for acute on chronic renal disease which has improved. Labs today are pending. Luna Haque MD Hospitalist.
--- NOTE | 2018-07-06 20:22 | PN ---
DATE: 07/06/2018 SUBJECTIVE: The patient is in bed, in no acute distress, nontoxic. No fevers. Patient was seen early this morning. PHYSICAL EXAMINATION VITAL SIGNS: Temperature is 98, blood pressure is 140/70, respiratory rate of 20, heart rate is 91. HEENT: Unremarkable. NECK: Supple. LUNGS: Have decreased breath sounds. HEART: Normal S1, S2. ABDOMEN: Soft. LABORATORY DATA: Reveals a white count of 4.1, hemoglobin of 8. BUN of 14, creatinine of 1.4. Urinalysis is noted. Serology is reviewed. ASSESSMENT AND PLAN A 62-year-old female who was admitted with multiple comorbidities, sepsis, left-sided healthcare associated pneumonia, MULTIPLE ALLERGIES, on Zyvox and meropenem and Levaquin with a right heel cellulitis. The patient had an MRI of the lower extremities, awaiting for those results. On meropenem and Zyvox with gram-positive cocci from the foot.. We will follow with you. Awaiting for identification of the gram-positive cocci from the foot. The blood cultures are reported to be negative. Carroll Castellano MD
--- NOTE | 2018-07-06 22:01 | CP.PCM.PN ---
Subjective - Date & Time of Evaluation Date of Evaluation: 07/06/18 Time of Evaluation: 17:00 - Subjective Subjective: No complaints. Objective - Vital Signs/Intake and Output Vital Signs (last 24 hours): Temp Pulse Resp BP Pulse Ox 98 F 94 H 20 152/76 H 96 07/06/18 18:00 07/06/18 18:00 07/06/18 18:00 07/06/18 18:00 07/06/18 18:00 Intake and Output: 07/06/18 07/07/18 18:59 06:59 Intake Total 956 Output Total 300 Balance 656 - Medications Medications: Current Medications Acetaminophen (Tylenol 650 Mg Supp) 650 mg RC Q4H PRN PRN Reason: Fever >100.4 F Aspirin (Ecotrin) 81 mg PO DAILY [facility] Last Admin: 07/06/18 10:04 Dose: 81 mg Cyanocobalamin (Vitamin B12 1000 Mcg Tab) 500 mcg PO DAILY [facility] Last Admin: 07/06/18 10:04 Dose: 500 mcg Darbepoetin Brown (Aranesp) 100 mcg SC QWK [facility] Last Admin: 07/03/18 11:04 Dose: 100 mcg Dextrose (Dextrose 50% Inj) 0 ml IV STAT PRN; Protocol PRN Reason: Hypoglycemia Protocol Ferrous Gluconate (Fergon) 324 mg PO TID [facility] Last Admin: 07/06/18 18:12 Dose: 324 mg Heparin Sodium (Porcine) (Heparin) 5,000 units SC Q8 [facility]; Protocol Last Admin: 07/03/18 13:14 Dose: 5,000 units Meropenem/Sodium Chloride (Merrem Iv 500 Mg/Ns 50 Ml) 500 mg in 50 mls @ 100 mls/hr IVPB Q12 [facility]; Protocol Stop: 07/11/18 22:01 Last Admin: 07/06/18 21:18 Dose: 100 mls/hr Dextrose (Dextrose 5% In Water 1000 Ml) 1,000 mls @ 0 mls/hr IV .Q0M PRN; Protocol PRN Reason: Hypoglycemia Protocol Sodium Chloride (Sodium Chloride 0.45%) 1,000 mls @ 60 mls/hr IV .[id number] [facility] Last Admin: 07/05/18 11:37 Dose: 60 mls/hr Insulin Human Lispro (Humalog Low) 0 units SC ACHS [facility]; Protocol Last Admin: 07/06/18 21:33 Dose: Not Given Levetiracetam (Keppra) 500 mg PO BID [facility] Last Admin: 07/06/18 18:14 Dose: 500 mg Linezolid (Zyvox) 600 mg PO BID [facility]; Protocol Stop: 07/15/18 10:01 Last Admin: 07/06/18 18:11 Dose: 600 mg Megestrol Acetate (Megace) 40 mg PO DAILY [facility] Last Admin: 07/06/18 10:04 Dose: 40 mg Metoprolol Succinate (Toprol Xl) 50 mg PO DAILY [facility] Last Admin: 07/06/18 10:16 Dose: 50 mg Mupirocin (Bactroban Ointment) 0 gm TOP DAILY [facility] Last Admin: 07/06/18 10:22 Dose: Not Given Ondansetron HCl (Zofran Inj) 4 mg IVP Q4H PRN PRN Reason: Nausea/Vomiting Last Admin: 07/03/18 02:21 Dose: 4 mg Pantoprazole Sodium (Protonix Inj) 40 mg IVP DAILY [facility] Last Admin: 07/06/18 10:06 Dose: 40 mg Sodium Bicarbonate (Sodium Bicarbonate Tab) 1,300 mg PO QID [facility] Last Admin: 07/06/18 21:18 Dose: 1,300 mg Vitamin B Complex/Vit C/Folic Acid (Nephro-Jenny) 1 tab PO 0800 [facility] Last Admin: 07/06/18 10:05 Dose: 1 tab - Labs Labs: 07/05/18 08:00 07/05/18 08:00 PT 14.4 SECONDS (9.4-12.5) H 07/02/18 16:15 INR 1.30 07/02/18 16:15 APTT 39.1 Seconds (26.9-38.3) H 07/02/18 16:15 - Head Exam Head Exam: ATRAUMATIC - Eye Exam Eye Exam: Normal appearance - ENT Exam ENT Exam: Mucous Membranes Dry - Respiratory Exam Respiratory Exam: NORMAL BREATHING PATTERN - Cardiovascular Exam Cardiovascular Exam: +S1, +S2 - GI/Abdominal Exam GI & Abdominal Exam: Normal Bowel Sounds Assessment and Plan (1) Anemia Assessment & Plan: anemia of chronic disease from infection and anemia of CKD agree with transfusion support erythropoietin supplementation to decrease transfusion dependence no iron/b12/folate deficiency KAREL can be positive without hemolysis - no evidence of hemolysis Status: Chronic
--- NOTE | 2018-07-06 22:01 | CP.PCM.PN ---
Subjective - Date & Time of Evaluation Date of Evaluation: 07/05/18 Time of Evaluation: 12:00 - Subjective Subjective: No complaints. Objective - Vital Signs/Intake and Output Vital Signs (last 24 hours): Temp Pulse Resp BP Pulse Ox 98 F 94 H 20 152/76 H 96 07/06/18 18:00 07/06/18 18:00 07/06/18 18:00 07/06/18 18:00 07/06/18 18:00 Intake and Output: 07/06/18 07/07/18 18:59 06:59 Intake Total 956 Output Total 300 Balance 656 - Medications Medications: Current Medications Acetaminophen (Tylenol 650 Mg Supp) 650 mg RC Q4H PRN PRN Reason: Fever >100.4 F Aspirin (Ecotrin) 81 mg PO DAILY [facility] Last Admin: 07/06/18 10:04 Dose: 81 mg Cyanocobalamin (Vitamin B12 1000 Mcg Tab) 500 mcg PO DAILY [facility] Last Admin: 07/06/18 10:04 Dose: 500 mcg Darbepoetin Brown (Aranesp) 100 mcg SC QWK [facility] Last Admin: 07/03/18 11:04 Dose: 100 mcg Dextrose (Dextrose 50% Inj) 0 ml IV STAT PRN; Protocol PRN Reason: Hypoglycemia Protocol Ferrous Gluconate (Fergon) 324 mg PO TID [facility] Last Admin: 07/06/18 18:12 Dose: 324 mg Heparin Sodium (Porcine) (Heparin) 5,000 units SC Q8 [facility]; Protocol Last Admin: 07/03/18 13:14 Dose: 5,000 units Meropenem/Sodium Chloride (Merrem Iv 500 Mg/Ns 50 Ml) 500 mg in 50 mls @ 100 mls/hr IVPB Q12 [facility]; Protocol Stop: 07/11/18 22:01 Last Admin: 07/06/18 21:18 Dose: 100 mls/hr Dextrose (Dextrose 5% In Water 1000 Ml) 1,000 mls @ 0 mls/hr IV .Q0M PRN; Protocol PRN Reason: Hypoglycemia Protocol Sodium Chloride (Sodium Chloride 0.45%) 1,000 mls @ 60 mls/hr IV .[id number] [facility] Last Admin: 07/05/18 11:37 Dose: 60 mls/hr Insulin Human Lispro (Humalog Low) 0 units SC ACHS [facility]; Protocol Last Admin: 07/06/18 21:33 Dose: Not Given Levetiracetam (Keppra) 500 mg PO BID [facility] Last Admin: 07/06/18 18:14 Dose: 500 mg Linezolid (Zyvox) 600 mg PO BID [facility]; Protocol Stop: 07/15/18 10:01 Last Admin: 07/06/18 18:11 Dose: 600 mg Megestrol Acetate (Megace) 40 mg PO DAILY [facility] Last Admin: 07/06/18 10:04 Dose: 40 mg Metoprolol Succinate (Toprol Xl) 50 mg PO DAILY [facility] Last Admin: 07/06/18 10:16 Dose: 50 mg Mupirocin (Bactroban Ointment) 0 gm TOP DAILY [facility] Last Admin: 07/06/18 10:22 Dose: Not Given Ondansetron HCl (Zofran Inj) 4 mg IVP Q4H PRN PRN Reason: Nausea/Vomiting Last Admin: 07/03/18 02:21 Dose: 4 mg Pantoprazole Sodium (Protonix Inj) 40 mg IVP DAILY [facility] Last Admin: 07/06/18 10:06 Dose: 40 mg Sodium Bicarbonate (Sodium Bicarbonate Tab) 1,300 mg PO QID [facility] Last Admin: 07/06/18 21:18 Dose: 1,300 mg Vitamin B Complex/Vit C/Folic Acid (Nephro-Jenny) 1 tab PO 0800 [facility] Last Admin: 07/06/18 10:05 Dose: 1 tab - Labs Labs: 07/05/18 08:00 07/05/18 08:00 PT 14.4 SECONDS (9.4-12.5) H 07/02/18 16:15 INR 1.30 07/02/18 16:15 APTT 39.1 Seconds (26.9-38.3) H 07/02/18 16:15 - Head Exam Head Exam: ATRAUMATIC - Eye Exam Eye Exam: Normal appearance - ENT Exam ENT Exam: Mucous Membranes Dry - Respiratory Exam Respiratory Exam: NORMAL BREATHING PATTERN - Cardiovascular Exam Cardiovascular Exam: +S1, +S2 - GI/Abdominal Exam GI & Abdominal Exam: Normal Bowel Sounds Assessment and Plan (1) Anemia Assessment & Plan: anemia of chronic disease from infection and anemia of CKD agree with transfusion support erythropoietin supplementation to decrease transfusion dependence no iron/b12/folate deficiency KAREL can be positive without hemolysis - no evidence of hemolysis no overt evidence of blood loss Status: Chronic
[2018-07-07 09:20] LABS: BASO # 0.01 {null, K/mm3} (0.0-2.0); BASO % 0.1 % (0.0-3.0); EOS # 0.4 (0.0-0.7); EOS % 4.7 % (1.5-5.0); HEMOGLOBIN 8.2 g/dL (12.0-16.0); LYMPH # 1.1 (1.2-3.4); LYMPH % 13.7 % (22.0-35.0); MEAN CORPUSCULAR HEMOGLOBIN 28.5 pg (25.0-35.0); MEAN CORPUSCULAR HGB CONC 31.3 g/dl (31.0-37.0); MEAN PLATELET VOLUME 9.3 fl (7.0-11.0); MONO # 0.6 (0.1-0.6); MONO % 7.9 % (1.0-6.0); RBC 2.88 {null, 10^6/uL} (3.5-6.1); RED CELL DISTRIBUTION WIDTH 15.4 % (11.5-14.5); WHITE BLOOD COUNT 7.9 {null, 10^3/uL} (4.5-11.0)
[2018-07-07] MEDS: MEROPENEM 500 MG in NS 500 MG/50 ML BAG IVPB SCH ×2 (09:33→21:40)
[2018-07-07] MEDS: Metoprolol Succinate 50 mg XL Tab PO SCH (09:41)
[2018-07-07 09:53] LABS: ALBUMIN 3.3 g/dL (3.0-4.8); CALCIUM 8.5 mg/dL (8.4-10.5)
[2018-07-07] MEDS: Insulin Lispro (humaLOG) LOW Coverage SC SCH ×3 (10:12→17:59)
[2018-07-07] MEDS: Multivitamin Vitamin B Complex (Nephro-Vite) Tab PO SCH (10:16)
--- NOTE | 2018-07-07 12:23 | CP.PCM.PN ---
<Jabier Herrera - Last Filed: 07/07/18 12:15> Subjective - Date & Time of Evaluation Date of Evaluation: 07/07/18 Time of Evaluation: 12:15 - Subjective Subjective: Jabier Herrera DO PGY1 - Internal Medicine [employer] - Hospitalist Progress Note Patient was seen and examined at bedside this AM; No acute events overnight; Denies fevers, chills, chest pain, sob, abd pain, n/v/d/c Objective - Vital Signs/Intake and Output Vital Signs (last 24 hours): Temp Pulse Resp BP Pulse Ox 98.3 F 98 H 18 136/65 100 07/07/18 06:00 07/07/18 06:00 07/07/18 06:00 07/07/18 06:00 07/07/18 06:00 Intake and Output: 07/07/18 07/07/18 06:59 18:59 Intake Total 956 Output Total 500 Balance 456 - Medications Medications: Current Medications Acetaminophen (Tylenol 650 Mg Supp) 650 mg RC Q4H PRN PRN Reason: Fever >100.4 F Aspirin (Ecotrin) 81 mg PO DAILY [facility] Last Admin: 07/07/18 09:33 Dose: 81 mg Cyanocobalamin (Vitamin B12 1000 Mcg Tab) 500 mcg PO DAILY [facility] Last Admin: 07/07/18 09:32 Dose: 500 mcg Darbepoetin Brown (Aranesp) 100 mcg SC QWK [facility] Last Admin: 07/03/18 11:04 Dose: 100 mcg Dextrose (Dextrose 50% Inj) 0 ml IV STAT PRN; Protocol PRN Reason: Hypoglycemia Protocol Ferrous Gluconate (Fergon) 324 mg PO TID [facility] Last Admin: 07/07/18 09:33 Dose: 324 mg Heparin Sodium (Porcine) (Heparin) 5,000 units SC Q8 [facility]; Protocol Last Admin: 07/03/18 13:14 Dose: 5,000 units Meropenem/Sodium Chloride (Merrem Iv 500 Mg/Ns 50 Ml) 500 mg in 50 mls @ 100 mls/hr IVPB Q12 [facility]; Protocol Stop: 07/11/18 22:01 Last Admin: 07/07/18 09:33 Dose: 100 mls/hr Dextrose (Dextrose 5% In Water 1000 Ml) 1,000 mls @ 0 mls/hr IV .Q0M PRN; Protocol PRN Reason: Hypoglycemia Protocol Sodium Chloride (Sodium Chloride 0.45%) 1,000 mls @ 60 mls/hr IV .[id number] [facility] Last Admin: 07/05/18 11:37 Dose: 60 mls/hr Insulin Human Lispro (Humalog Low) 0 units SC ACHS [facility]; Protocol Last Admin: 07/07/18 10:12 Dose: Not Given Levetiracetam (Keppra) 500 mg PO BID [facility] Last Admin: 07/07/18 09:41 Dose: 500 mg Linezolid (Zyvox) 600 mg PO BID [facility]; Protocol Stop: 07/15/18 10:01 Last Admin: 07/07/18 09:33 Dose: 600 mg Megestrol Acetate (Megace) 40 mg PO DAILY [facility] Last Admin: 07/07/18 09:41 Dose: 40 mg Metoprolol Succinate (Toprol Xl) 50 mg PO DAILY [facility] Last Admin: 07/07/18 09:41 Dose: 50 mg Mupirocin (Bactroban Ointment) 0 gm TOP DAILY [facility] Last Admin: 07/06/18 10:22 Dose: Not Given Ondansetron HCl (Zofran Inj) 4 mg IVP Q4H PRN PRN Reason: Nausea/Vomiting Last Admin: 07/03/18 02:21 Dose: 4 mg Pantoprazole Sodium (Protonix Inj) 40 mg IVP DAILY [facility] Last Admin: 07/07/18 10:11 Dose: 40 mg Sodium Bicarbonate (Sodium Bicarbonate Tab) 1,300 mg PO QID [facility] Last Admin: 07/07/18 09:41 Dose: 1,300 mg Vitamin B Complex/Vit C/Folic Acid (Nephro-Jenny) 1 tab PO 0800 [facility] Last Admin: 07/07/18 10:16 Dose: 1 tab - Labs Labs: 07/07/18 09:00 07/07/18 09:00 PT 14.4 SECONDS (9.4-12.5) H 07/02/18 16:15 INR 1.30 07/02/18 16:15 APTT 39.1 Seconds (26.9-38.3) H 07/02/18 16:15 - Constitutional Appears: Well, Non-toxic, No Acute Distress - Head Exam Head Exam: ATRAUMATIC, NORMOCEPHALIC - Eye Exam Eye Exam: EOMI, Normal appearance, PERRL - ENT Exam ENT Exam: Mucous Membranes Moist, Normal Exam - Respiratory Exam Respiratory Exam: Clear to Ausculation Bilateral, NORMAL BREATHING PATTERN - Cardiovascular Exam Cardiovascular Exam: RRR. absent: Murmur - GI/Abdominal Exam GI & Abdominal Exam: Soft. absent: Tenderness - Extremities Exam Additional comments: BL LE warm and dry to touch; optifoam dressings in place w/ no discharge/ erythema appreciated. Multiple amputations noted. - Neurological Exam Neurological Exam: Alert, Awake, CN II-XII Intact - Psychiatric Exam Psychiatric exam: Normal Affect, Normal Mood - Skin Skin Exam: Dry, Intact, Warm Assessment and Plan - Assessment and Plan (Free Text) Assessment: 62F PMHx DM2 (last A1c 6.8), HTN, CKD Stage IV, Osteoarthritis, Anemia of Chronic Kidney Disease, Seizures, Hearing Loss, and Osteomyelitis presented to [facility] [place] [place] ED referred from podiatry (Dr. Raymond) for R heel cellulitis and Left 5th metatarsal ulceration; noted to be in severe sepsis upon admission. Plan: R Heel Cellulitis w/ L 5th metatarsal ulceration Afebrile w/o leukocytosis C/w Merrem C/w Zyvox Wound Cx - growing MRSA Blood Cx 07/02 - 04/13 negative to date BL LE MRI completed' official read pending - r/o osteomyelitis ID Following, Appreciate [facility] Podiatry Following, Appreciate [facility] FREDY on Stage IV CKD - Resolved BUN/Cr Improving at this time IV NS started by nephro Vitamin B Complex/Vit C/Folic Acid (Nephro-Jenny) Nephro following Anemia - Anemia of CKD ; Less likely suspect GI bleed s/p 1u PRBC Hb stable Darbepoetin Brown (Aranesp) 100 mcg SC QWK [facility] Ferrous Gluconate (Fergon) 324 mg PO TID [facility] Cyanocobalamin (Vitamin B12 1000 Mcg Tab) 500 mcg PO DAILY [facility] CT A/P: no acute findings; no bleed GI Consulted - no plans for acute EGD at this time; can f/u as outpt for capsule endoscopy Heme/Onc following appreciate [facility] Hx HTN Metoprolol Succinate (Toprol Xl) 50 mg PO DAILY [facility] Aspirin (Ecotrin) 81 mg PO DAILY [facility] Hx DM Insulin Human Lispro (Humalog Low) 0 units SC ACHS [facility]; Protocol Hx Seizure Levetiracetam (Keppra) 500 mg PO BID [facility] PPX: Hold Heparin due to anemia; SCD Protonix Dispo:Continued inpatient management at this time for BL heel cellulitis; rule out osteo - tailor abx therapy accordingly Patient was seen, examined, discussed w/ attending Dr. Shabnam Herrera DO PGY1 - Internal Medicine [employer] <Luna Haque - Last Filed: 07/07/18 12:54> Objective - Vital Signs/Intake and Output Vital Signs (last 24 hours): Temp Pulse Resp BP Pulse Ox 98.3 F 98 H 18 136/65 100 07/07/18 06:00 07/07/18 06:00 07/07/18 06:00 07/07/18 06:00 07/07/18 06:00 Intake and Output: 07/07/18 07/07/18 06:59 18:59 Intake Total 956 Output Total 500 Balance 456 - Medications Medications: Current Medications Acetaminophen (Tylenol 650 Mg Supp) 650 mg RC Q4H PRN PRN Reason: Fever >100.4 F Aspirin (Ecotrin) 81 mg PO DAILY [facility] Last Admin: 07/07/18 09:33 Dose: 81 mg Cyanocobalamin (Vitamin B12 1000 Mcg Tab) 500 mcg PO DAILY [facility] Last Admin: 07/07/18 09:32 Dose: 500 mcg Darbepoetin Brown (Aranesp) 100 mcg SC QWK [facility] Last Admin: 07/03/18 11:04 Dose: 100 mcg Dextrose (Dextrose 50% Inj) 0 ml IV STAT PRN; Protocol PRN Reason: Hypoglycemia Protocol Ferrous Gluconate (Fergon) 324 mg PO TID [facility] Last Admin: 07/07/18 09:33 Dose: 324 mg Heparin Sodium (Porcine) (Heparin) 5,000 units SC Q8 [facility]; Protocol Last Admin: 07/03/18 13:14 Dose: 5,000 units Meropenem/Sodium Chloride (Merrem Iv 500 Mg/Ns 50 Ml) 500 mg in 50 mls @ 100 mls/hr IVPB Q12 [facility]; Protocol Stop: 07/11/18 22:01 Last Admin: 07/07/18 09:33 Dose: 100 mls/hr Dextrose (Dextrose 5% In Water 1000 Ml) 1,000 mls @ 0 mls/hr IV .Q0M PRN; Protocol PRN Reason: Hypoglycemia Protocol Sodium Chloride (Sodium Chloride 0.45%) 1,000 mls @ 60 mls/hr IV .[id number] [facility] Last Admin: 07/05/18 11:37 Dose: 60 mls/hr Insulin Human Lispro (Humalog Low) 0 units SC ACHS [facility]; Protocol Last Admin: 07/07/18 10:12 Dose: Not Given Levetiracetam (Keppra) 500 mg PO BID [facility] Last Admin: 07/07/18 09:41 Dose: 500 mg Linezolid (Zyvox) 600 mg PO BID [facility]; Protocol Stop: 07/15/18 10:01 Last Admin: 07/07/18 09:33 Dose: 600 mg Megestrol Acetate (Megace) 40 mg PO DAILY [facility] Last Admin: 07/07/18 09:41 Dose: 40 mg Metoprolol Succinate (Toprol Xl) 50 mg PO DAILY [facility] Last Admin: 07/07/18 09:41 Dose: 50 mg Mupirocin (Bactroban Ointment) 0 gm TOP DAILY [facility] Last Admin: 07/06/18 10:22 Dose: Not Given Ondansetron HCl (Zofran Inj) 4 mg IVP Q4H PRN PRN Reason: Nausea/Vomiting Last Admin: 07/03/18 02:21 Dose: 4 mg Pantoprazole Sodium (Protonix Inj) 40 mg IVP DAILY [facility] Last Admin: 07/07/18 10:11 Dose: 40 mg Sodium Bicarbonate (Sodium Bicarbonate Tab) 1,300 mg PO QID [facility] Last Admin: 07/07/18 09:41 Dose: 1,300 mg Vitamin B Complex/Vit C/Folic Acid (Nephro-Jenny) 1 tab PO 0800 [facility] Last Admin: 07/07/18 10:16 Dose: 1 tab - Labs Labs: 07/07/18 09:00 07/07/18 09:00 PT 14.4 SECONDS (9.4-12.5) H 07/02/18 16:15 INR 1.30 07/02/18 16:15 APTT 39.1 Seconds (26.9-38.3) H 07/02/18 16:15 Attending/Attestation - Attestation I have personally seen and examined this patient.: Yes I have fully participated in the care of the patient.: Yes I have reviewed all pertinent clinical information, including history, physical exam and plan: Yes Notes (Text): 07/07/18 12:52 62 year old female with past medical history of diabetes, hypertension, CKD, osteomyelitis and seizures who 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 She was recently prescribed outpatient antibiotics. Also found to have acute anemia, acute on chronic renal failure and left side pneumonia. Continue with wound care as per podiatry. Continue with antibiotics as per ID. Wound culture is growing MRSA. MRI lower extremities were done with pending read to rule out osteomyelitis. GI evaluation was appreciated for acute anemia. CT abd/pelvis was negative for acute findings. Recent EGD last year reviewed as above. No plan per GI to repeat EGD at this time. Recommended outpatient capsule endoscopy. She received one unit prbc and dose of aranesp since admission. Her hemoglobin has improved since then. Hematology evaluation was appreciated as well. Nephrology is following for acute on chronic renal disease which has improved. Will replete and repeat potassium. Luna Haque MD Hospitalist.
[2018-07-07] MEDS ORDERED: Potassium Chloride 20 mEq ER Tab PO ONE (12:55)
[2018-07-07] MEDS: Mupirocin 2% Ointment 15 GM TUBE TOP SCH (14:30)
[2018-07-07] MEDS: Sodium Chloride 0.45% 1,000 ML IV SCH ×2 (14:34→18:00)
--- NOTE | 2018-07-07 21:36 | CP.PCM.PN ---
Subjective - Date & Time of Evaluation Date of Evaluation: 07/07/18 Time of Evaluation: 19:00 - Subjective Subjective: No complaints. Objective - Vital Signs/Intake and Output Vital Signs (last 24 hours): Temp Pulse Resp BP Pulse Ox 98 F 86 20 157/69 H 100 07/07/18 14:00 07/07/18 14:00 07/07/18 14:00 07/07/18 14:00 07/07/18 14:00 Intake and Output: 07/07/18 07/08/18 18:59 06:59 Intake Total 720 Output Total 250 Balance 470 - Medications Medications: Current Medications Acetaminophen (Tylenol 650 Mg Supp) 650 mg RC Q4H PRN PRN Reason: Fever >100.4 F Aspirin (Ecotrin) 81 mg PO DAILY [facility] Last Admin: 07/07/18 09:33 Dose: 81 mg Cyanocobalamin (Vitamin B12 1000 Mcg Tab) 500 mcg PO DAILY [facility] Last Admin: 07/07/18 09:32 Dose: 500 mcg Darbepoetin Brown (Aranesp) 100 mcg SC QWK [facility] Last Admin: 07/03/18 11:04 Dose: 100 mcg Dextrose (Dextrose 50% Inj) 0 ml IV STAT PRN; Protocol PRN Reason: Hypoglycemia Protocol Ferrous Gluconate (Fergon) 324 mg PO TID [facility] Last Admin: 07/07/18 17:58 Dose: 324 mg Heparin Sodium (Porcine) (Heparin) 5,000 units SC Q8 [facility]; Protocol Last Admin: 07/03/18 13:14 Dose: 5,000 units Meropenem/Sodium Chloride (Merrem Iv 500 Mg/Ns 50 Ml) 500 mg in 50 mls @ 100 mls/hr IVPB Q12 [facility]; Protocol Stop: 07/11/18 22:01 Last Admin: 07/07/18 09:33 Dose: 100 mls/hr Dextrose (Dextrose 5% In Water 1000 Ml) 1,000 mls @ 0 mls/hr IV .Q0M PRN; Protocol PRN Reason: Hypoglycemia Protocol Sodium Chloride (Sodium Chloride 0.45%) 1,000 mls @ 60 mls/hr IV .[id number] [facility] Last Admin: 07/07/18 18:00 Dose: 60 mls/hr Insulin Human Lispro (Humalog Low) 0 units SC ACHS [facility]; Protocol Last Admin: 07/07/18 17:59 Dose: 2 units Levetiracetam (Keppra) 500 mg PO BID [facility] Last Admin: 07/07/18 17:58 Dose: 500 mg Linezolid (Zyvox) 600 mg PO BID [facility]; Protocol Stop: 07/15/18 10:01 Last Admin: 07/07/18 17:58 Dose: 600 mg Megestrol Acetate (Megace) 40 mg PO DAILY [facility] Last Admin: 07/07/18 09:41 Dose: 40 mg Metoprolol Succinate (Toprol Xl) 50 mg PO DAILY [facility] Last Admin: 07/07/18 09:41 Dose: 50 mg Mupirocin (Bactroban Ointment) 0 gm TOP DAILY [facility] Last Admin: 07/07/18 14:30 Dose: Not Given Ondansetron HCl (Zofran Inj) 4 mg IVP Q4H PRN PRN Reason: Nausea/Vomiting Last Admin: 07/03/18 02:21 Dose: 4 mg Pantoprazole Sodium (Protonix Inj) 40 mg IVP DAILY [facility] Last Admin: 07/07/18 10:11 Dose: 40 mg Sodium Bicarbonate (Sodium Bicarbonate Tab) 1,300 mg PO QID [facility] Last Admin: 07/07/18 17:57 Dose: 1,300 mg Vitamin B Complex/Vit C/Folic Acid (Nephro-Jenny) 1 tab PO 0800 [facility] Last Admin: 07/07/18 10:16 Dose: 1 tab - Labs Labs: 07/07/18 09:00 07/07/18 09:00 PT 14.4 SECONDS (9.4-12.5) H 07/02/18 16:15 INR 1.30 07/02/18 16:15 APTT 39.1 Seconds (26.9-38.3) H 07/02/18 16:15 - Head Exam Head Exam: ATRAUMATIC - Eye Exam Eye Exam: Normal appearance - ENT Exam ENT Exam: Mucous Membranes Dry - Respiratory Exam Respiratory Exam: NORMAL BREATHING PATTERN - Cardiovascular Exam Cardiovascular Exam: +S1, +S2 - GI/Abdominal Exam GI & Abdominal Exam: Normal Bowel Sounds Assessment and Plan (1) Anemia Assessment & Plan: anemia of chronic disease from infection and anemia of CKD agree with transfusion support erythropoietin supplementation to decrease transfusion dependence no iron/b12/folate deficiency KAREL can be positive without hemolysis - no evidence of hemolysis Status: Chronic
--- NOTE | 2018-07-08 02:47 | PN ---
DATE: 07/07/2018 SUBJECTIVE: The patient is seen in room 571, bed 1. The patient has no nausea, no vomiting. PHYSICAL EXAMINATION: VITAL SIGNS: Temperature is 98, blood pressure is 150/60, and respiratory rate of 18. HEENT: Unremarkable. NECK: Supple. LUNGS: Decreased breath sounds. HEART: Normal S1 and S2. ABDOMEN: Soft. LABORATORY DATA: Reveals a white count of 7.9, hemoglobin of 8, BUN of 17, and creatinine of 1.3. Urinalysis is noted and serology is reviewed. Microbiology reveals the patient has MRSA from the right foot culture. The patient also has MRSA from her right ankle. ASSESSMENT AND PLAN: This is a 62-year-old female with multiple comorbidities and sepsis with left-sided healthcare-associated pneumonia, multiple allergies with methicillin-resistant Staphylococcus aureus cellulitis, waiting for the MRI results. We will discontinue the meropenem, continue p.o. Zyvox. The patient's sed rate is 148. We will follow with you. Carroll Castellano MD
[2018-07-08] MEDS: Pantoprazole 40 mg EC Tab PO SCH (06:55)
[2018-07-08] MEDS: Sodium Chloride 0.45% 1,000 ML IV SCH (06:55)
[2018-07-08] MEDS: Insulin Lispro (humaLOG) LOW Coverage SC SCH ×5 (08:00→22:20)
[2018-07-08 08:24] LABS: BASO # 0.02 {null, K/mm3} (0.0-2.0); BASO % 0.3 % (0.0-3.0); EOS # 0.4 (0.0-0.7); EOS % 4.6 % (1.5-5.0); HEMOGLOBIN 9.3 g/dL (12.0-16.0); LYMPH # 1.5 (1.2-3.4); LYMPH % 19.3 % (22.0-35.0); MEAN CELL VOLUME 91.9 fl (80.0-105.0); MEAN CORPUSCULAR HEMOGLOBIN 28.9 pg (25.0-35.0); MEAN CORPUSCULAR HGB CONC 31.4 g/dl (31.0-37.0); MEAN PLATELET VOLUME 9.2 fl (7.0-11.0); MONO # 0.7 (0.1-0.6); MONO % 8.8 % (1.0-6.0); RBC 3.22 {null, 10^6/uL} (3.5-6.1); RED CELL DISTRIBUTION WIDTH 15.2 % (11.5-14.5); WHITE BLOOD COUNT 7.8 {null, 10^3/uL} (4.5-11.0)
[2018-07-08 08:48] LABS: ALBUMIN 3.5 g/dL (3.0-4.8); CALCIUM 9.1 mg/dL (8.4-10.5)
[2018-07-08] MEDS: Mupirocin 2% Ointment 15 GM TUBE TOP SCH (09:42)
[2018-07-08] MEDS: Multivitamin Vitamin B Complex (Nephro-Vite) Tab PO SCH (09:43)
[2018-07-08] MEDS: Metoprolol Succinate 50 mg XL Tab PO SCH (09:44)
--- NOTE | 2018-07-08 10:22 | CP.PCM.PN ---
Subjective - Date & Time of Evaluation Date of Evaluation: 07/08/18 Time of Evaluation: 10:19 - Subjective Subjective: Podiatry progress note - Drs. Raymond/Twila 62F seen and evaluated at bedside this AM with Dr. Mattson. Resting comfortably with no acute complaints. Denies pain to b/l feet and reports no events overnight. Denies n/v/f/c today. Objective - Vital Signs/Intake and Output Vital Signs (last 24 hours): Temp Pulse Resp BP Pulse Ox 97.9 F 88 17 134/88 100 07/08/18 06:00 07/08/18 06:00 07/08/18 06:00 07/08/18 09:44 07/08/18 06:00 Intake and Output: 07/08/18 07/08/18 06:59 18:59 Output Total 300 Balance -300 - Medications Medications: Current Medications Acetaminophen (Tylenol 650 Mg Supp) 650 mg RC Q4H PRN PRN Reason: Fever >100.4 F Aspirin (Ecotrin) 81 mg PO DAILY [facility] Last Admin: 07/08/18 09:43 Dose: 81 mg Cyanocobalamin (Vitamin B12 1000 Mcg Tab) 500 mcg PO DAILY [facility] Last Admin: 07/08/18 09:45 Dose: 500 mcg Darbepoetin Brown (Aranesp) 100 mcg SC QWK [facility] Last Admin: 07/03/18 11:04 Dose: 100 mcg Dextrose (Dextrose 50% Inj) 0 ml IV STAT PRN; Protocol PRN Reason: Hypoglycemia Protocol Ferrous Gluconate (Fergon) 324 mg PO TID [facility] Last Admin: 07/08/18 09:43 Dose: 324 mg Heparin Sodium (Porcine) (Heparin) 5,000 units SC Q8 [facility]; Protocol Last Admin: 07/03/18 13:14 Dose: 5,000 units Dextrose (Dextrose 5% In Water 1000 Ml) 1,000 mls @ 0 mls/hr IV .Q0M PRN; Protocol PRN Reason: Hypoglycemia Protocol Sodium Chloride (Sodium Chloride 0.45%) 1,000 mls @ 60 mls/hr IV .[id number] [facility] Last Admin: 07/08/18 06:55 Dose: 60 mls/hr Insulin Human Lispro (Humalog Low) 0 units SC ACHS [facility]; Protocol Last Admin: 07/08/18 08:00 Dose: Not Given Levetiracetam (Keppra) 500 mg PO BID [facility] Last Admin: 07/08/18 09:43 Dose: 500 mg Linezolid (Zyvox) 600 mg PO BID [facility]; Protocol Stop: 07/15/18 10:01 Last Admin: 07/08/18 09:45 Dose: 600 mg Megestrol Acetate (Megace) 40 mg PO DAILY [facility] Last Admin: 07/08/18 09:43 Dose: 40 mg Metoprolol Succinate (Toprol Xl) 50 mg PO DAILY [facility] Last Admin: 07/08/18 09:44 Dose: 50 mg Mupirocin (Bactroban Ointment) 0 gm TOP DAILY [facility] Last Admin: 07/08/18 09:42 Dose: 1 applic Ondansetron HCl (Zofran Inj) 4 mg IVP Q4H PRN PRN Reason: Nausea/Vomiting Last Admin: 07/03/18 02:21 Dose: 4 mg Pantoprazole Sodium (Protonix Ec Tab) 40 mg PO 0600 [facility] Last Admin: 07/08/18 06:55 Dose: 40 mg Sodium Bicarbonate (Sodium Bicarbonate Tab) 1,300 mg PO QID [facility] Last Admin: 07/08/18 09:43 Dose: 1,300 mg Vitamin B Complex/Vit C/Folic Acid (Nephro-Jenny) 1 tab PO 0800 [facility] Last Admin: 07/08/18 09:43 Dose: 1 tab - Labs Labs: 07/08/18 08:00 07/08/18 08:00 PT 14.4 SECONDS (9.4-12.5) H 07/02/18 16:15 INR 1.30 07/02/18 16:15 APTT 39.1 Seconds (26.9-38.3) H 07/02/18 16:15 - Constitutional Appears: Non-toxic - Head Exam Head Exam: ATRAUMATIC - Extremities Exam Additional comments: Lower extremity focused examination: Vasc: DP/PT pulses palpable 2/4 B/L. Temperature gradient warm to warm from proximal to distal. Cap refill time: < 3 sec to all digits, mild non-pitting edema noted on bilateral LE (R>L) Neuro: Protective sensation is grossly intact B/L Derm: Right- right lateral malleolar ulceration measuring about 1 cm X 1 cm with overlying eschar, significant inflammation noted gianluca wound, positive erythema and drainage, tender on palpation, plantar fissure noted with dry blood, 1cc of pus drained from site Left- left submetatarsal 5th ulceration with positive serous drainage and gianluca wound erythema MSK: No pain on palpation of the foot wound. Left ankle ulceration mildly tender - Neurological Exam Neurological Exam: Alert, Awake, Oriented x3 - Psychiatric Exam Psychiatric exam: Normal Affect Assessment and Plan - Assessment and Plan (Free Text) Assessment: 62F with b/l foot ulcerations Plan: Patient seen and evaluated with Dr. Mattson VSS, WBC 7.8 Foot Xray- no evidence of acute osteomyelitis noted Wound culture - MRSA Wound care: bactroban and Mepilex Continue IV Abx LE MRI taken - pending final read Will continue to follow
--- NOTE | 2018-07-08 12:43 | MRI ---
Date of service: 07/06/2018 PROCEDURE: MRI of the right ankle without contrast HISTORY: r/o acute osteo COMPARISON: TECHNIQUE: MRI of the right ankle was performed in multiple planes using multiple pulse sequences. FINDINGS: There is extensive marrow edema in the posterior half of the calcaneus. This could be secondary to osteomyelitis. There is severe thickening of the Achilles tendon without evidence of tear. The calcaneal edema could be related to an Achilles tendon injury or chronic repetitive stress. Clinical correlation is suggested. There is also focal marrow edema in the distal fibula The remaining ankle tendons and ligaments are intact. The report concurs with the preliminary [employer] report IMPRESSION: There is extensive marrow edema in the posterior half of the calcaneus. This could be secondary to osteomyelitis. There is severe thickening of the Achilles tendon without evidence of tear. The calcaneal edema could be related to an Achilles tendon injury or chronic repetitive stress. Clinical correlation is suggested. There is also focal marrow edema in the distal fibula
--- NOTE | 2018-07-08 12:49 | MRI ---
Date of service: 07/06/2018 PROCEDURE: MRI of the left ankle HISTORY: r/o acute osteo COMPARISON: MRI of the right ankle performed on the same day TECHNIQUE: MRI was performed in multiple planes using multiple pulse sequences. FINDINGS: As seen on the right foot there is severe thickening of the Achilles tendon consistent with chronic tendinopathy. There is no marrow edema to suggest osteomyelitis. Chronic postoperative changes are seen in the distal tibia. The remaining ankle tendons and ligaments are unremarkable. There been previous amputations in the distal foot. The report concurs with the preliminary [employer] report IMPRESSION: Severe tendinopathy and thickening of the Achilles tendon. No evidence of osteomyelitis
--- NOTE | 2018-07-08 14:37 | CP.PCM.PN ---
Subjective - Date & Time of Evaluation Date of Evaluation: 07/08/18 Time of Evaluation: 14:36 - Subjective Subjective: Nephrology Consultation Note: Assessment: stable Acute Kidney Injury (N17.9) Improving sepsis with feet cellulitis PNA ? osteomyelitis HAGMA With lactic acidosis anemia of chronic disease, metabolic acidosis (dRTA), hyperkalemia Diabetic chronic Kidney Disease (E11.22) Hypertensive Chronic Kidney Disease (I12.9) Chronic Kidney Disease (N18.3) Stage 3 hearing loss, esophageal stenosis, basal cell CA on nasal skin s/p removal, hx of seizure, recurrent FREDY Plan No acute need for renal replacement therapy at this time. No ACEI/ARB due to FREDY and recurrent hyperkalemia. maintain hemodynamics stable. avoid hypotension Monitor Input/Output, daily weights and renal function with basic metabolic panel continue Sodium bicarb 1300 mg QID dose of ananesp 100 mcg on 07/03/18, as needed PRBC transfusion. On iron and MVI continue with IVF as 0.45% saline as her her serum Na on higher side. podiatry ID GI following supplement lytes as needed Dose meds/antibiotics for reduced GFR. Avoid fleets enema/magnesium based laxatives. Avoid nephrotoxins/NSAIDs/ iodinated contrast (unless needed emergently) Glycemic control Further work up/management as per primary team Thanks for allowing me to participate in care of your patient. Will follow patient with you. Please call if any Qs. had d/w team Dr Javier Reyes Office: [phone] CC; heel wound/ulcer reason for consult: CKD management HPI: Pt is a 62 y/o F with hx of diabetes Mellitus ( x 8-9 years) with retinopathy, hypertension, hearing loss, esophageal stenosis, chronic anemia, basal cell CA on nasal skin s/p removal, recurrent AKIs, now has CKD stage 3 with anemia, RTA and hyperkalemia, seizure came with feet wound and infection with sepsis renal consult for CKD management. Denies chest pain, palpitation, shortness of breath, leg swelling. Had chronic loose stool 2-3 times/day but better now a days. ROS: no CP/SOB. no pain abdomen. all other negative except feet wound General Appearance: comfortable, in no acute respiratory distress, co-operative. thin built. Vitals reviewed and noted Head; Atraumatic, normocephalic ENT: no ulcers no thrush. Tongue is midline. Oropharynx: no rash or ulcers. Hard of hearing. Uses hearing aid. EYES: Pupils are equal, round and reactive to light accommodation. Eye muscles and extraocular movement intact. Sclera is anicteric. Neck; supple no lymphadenopathy, no thyromegaly or bruit Lungs: Normal respiratory rate/effort. Breath sounds bilateral equal and clear Heart: normal rate. s1s2 normal. No rub or gallop. Extremities: no edema with wound dressed at feet. No varicose veins. Hand osteoarthritic deformities +. Neurological: Patient is alert, awake and oriented to person, place and time. No focal deficit. Strength bilateral appropriate and equal Skin: Warm and dry. Normal turgor. Palpitation: Normal elasticity for age. Abdomen: Abdomen is soft. Bowel sounds +. There is no abdominal tenderness, no guarding/rigidity or organomegaly Psych: normal insight and normal affect/mood MSK: no joint tenderness or swelling. : kidney or bladder not palpable Labs/imaging reviewed. Past medical history, past surgical history, family history, social history, allergy reviewed and noted as below Family hx: no hx of CKD. Rest non-contributory Work up: 09/13/2016: GN serologies all negative, scleroderma work up neg, SPEP/LUDY neg Renal sono: b/l cortical atrophy. Small 1 cm Rt kidney simple cyst. Objective - Vital Signs/Intake and Output Vital Signs (last 24 hours): Temp Pulse Resp BP Pulse Ox 97.9 F 88 17 134/88 100 07/08/18 06:00 07/08/18 06:00 07/08/18 06:00 07/08/18 09:44 07/08/18 06:00 Intake and Output: 07/08/18 07/08/18 06:59 18:59 Output Total 300 Balance -300 - Medications Medications: Current Medications Acetaminophen (Tylenol 650 Mg Supp) 650 mg RC Q4H PRN PRN Reason: Fever >100.4 F Aspirin (Ecotrin) 81 mg PO DAILY [facility] Last Admin: 07/08/18 09:43 Dose: 81 mg Cyanocobalamin (Vitamin B12 1000 Mcg Tab) 500 mcg PO DAILY [facility] Last Admin: 07/08/18 09:45 Dose: 500 mcg Darbepoetin Brown (Aranesp) 100 mcg SC QWK [facility] Last Admin: 07/03/18 11:04 Dose: 100 mcg Dextrose (Dextrose 50% Inj) 0 ml IV STAT PRN; Protocol PRN Reason: Hypoglycemia Protocol Ferrous Gluconate (Fergon) 324 mg PO TID [facility] Last Admin: 07/08/18 14:15 Dose: 324 mg Heparin Sodium (Porcine) (Heparin) 5,000 units SC Q8 [facility]; Protocol Last Admin: 07/03/18 13:14 Dose: 5,000 units Dextrose (Dextrose 5% In Water 1000 Ml) 1,000 mls @ 0 mls/hr IV .Q0M PRN; Protocol PRN Reason: Hypoglycemia Protocol Sodium Chloride (Sodium Chloride 0.45%) 1,000 mls @ 60 mls/hr IV .[id number] [facility] Last Admin: 07/08/18 06:55 Dose: 60 mls/hr Insulin Human Lispro (Humalog Low) 0 units SC ACHS [facility]; Protocol Last Admin: 07/08/18 11:12 Dose: 2 units Levetiracetam (Keppra) 500 mg PO BID [facility] Last Admin: 07/08/18 09:43 Dose: 500 mg Linezolid (Zyvox) 600 mg PO BID [facility]; Protocol Stop: 07/15/18 10:01 Last Admin: 07/08/18 09:45 Dose: 600 mg Megestrol Acetate (Megace) 40 mg PO DAILY [facility] Last Admin: 07/08/18 09:43 Dose: 40 mg Metoprolol Succinate (Toprol Xl) 50 mg PO DAILY [facility] Last Admin: 07/08/18 09:44 Dose: 50 mg Mupirocin (Bactroban Ointment) 0 gm TOP DAILY [facility] Last Admin: 07/08/18 09:42 Dose: 1 applic Ondansetron HCl (Zofran Inj) 4 mg IVP Q4H PRN PRN Reason: Nausea/Vomiting Last Admin: 07/03/18 02:21 Dose: 4 mg Pantoprazole Sodium (Protonix Ec Tab) 40 mg PO 0600 [facility] Last Admin: 07/08/18 06:55 Dose: 40 mg Sodium Bicarbonate (Sodium Bicarbonate Tab) 1,300 mg PO QID [facility] Last Admin: 07/08/18 14:15 Dose: 1,300 mg Vitamin B Complex/Vit C/Folic Acid (Nephro-Jenny) 1 tab PO 0800 [facility] Last Admin: 07/08/18 09:43 Dose: 1 tab - Labs Labs: 07/08/18 08:00 07/08/18 08:00 PT 14.4 SECONDS (9.4-12.5) H 07/02/18 16:15 INR 1.30 07/02/18 16:15 APTT 39.1 Seconds (26.9-38.3) H 07/02/18 16:15
--- NOTE | 2018-07-08 16:22 | CP.PCM.PN ---
<Александр Vaz - Last Filed: 07/08/18 16:13> Subjective - Date & Time of Evaluation Date of Evaluation: 07/08/18 Time of Evaluation: 08:00 - Subjective Subjective: Александр Vaz PGY1 Medicine Progress Note for Dr. Alonzo Patient was seen at bedside. Vital signs stable. She had diarrhea overnight, a few episodes. However, no episodes this morning. Patient denies headache, fever, cp, sob, n/v. A full 12 point ROS was conducted and unremarkable except as stated above. Objective - Vital Signs/Intake and Output Vital Signs (last 24 hours): Temp Pulse Resp BP Pulse Ox 98.6 F 102 H 18 136/62 100 07/08/18 15:27 07/08/18 15:27 07/08/18 15:27 07/08/18 15:27 07/08/18 15:27 Intake and Output: 07/08/18 07/08/18 06:59 18:59 Output Total 300 Balance -300 - Medications Medications: Current Medications Acetaminophen (Tylenol 650 Mg Supp) 650 mg RC Q4H PRN PRN Reason: Fever >100.4 F Aspirin (Ecotrin) 81 mg PO DAILY [facility] Last Admin: 07/08/18 09:43 Dose: 81 mg Cyanocobalamin (Vitamin B12 1000 Mcg Tab) 500 mcg PO DAILY [facility] Last Admin: 07/08/18 09:45 Dose: 500 mcg Darbepoetin Brown (Aranesp) 100 mcg SC QWK [facility] Last Admin: 07/03/18 11:04 Dose: 100 mcg Dextrose (Dextrose 50% Inj) 0 ml IV STAT PRN; Protocol PRN Reason: Hypoglycemia Protocol Ferrous Gluconate (Fergon) 324 mg PO TID [facility] Last Admin: 07/08/18 14:15 Dose: 324 mg Heparin Sodium (Porcine) (Heparin) 5,000 units SC Q8 [facility]; Protocol Last Admin: 07/03/18 13:14 Dose: 5,000 units Dextrose (Dextrose 5% In Water 1000 Ml) 1,000 mls @ 0 mls/hr IV .Q0M PRN; Protocol PRN Reason: Hypoglycemia Protocol Sodium Chloride (Sodium Chloride 0.45%) 1,000 mls @ 60 mls/hr IV .[id number] [facility] Last Admin: 07/08/18 06:55 Dose: 60 mls/hr Insulin Human Lispro (Humalog Low) 0 units SC ACHS [facility]; Protocol Last Admin: 07/08/18 11:12 Dose: 2 units Levetiracetam (Keppra) 500 mg PO BID [facility] Last Admin: 07/08/18 09:43 Dose: 500 mg Linezolid (Zyvox) 600 mg PO BID [facility]; Protocol Stop: 07/15/18 10:01 Last Admin: 07/08/18 09:45 Dose: 600 mg Megestrol Acetate (Megace) 40 mg PO DAILY [facility] Last Admin: 07/08/18 09:43 Dose: 40 mg Metoprolol Succinate (Toprol Xl) 50 mg PO DAILY [facility] Last Admin: 07/08/18 09:44 Dose: 50 mg Mupirocin (Bactroban Ointment) 0 gm TOP DAILY [facility] Last Admin: 07/08/18 09:42 Dose: 1 applic Ondansetron HCl (Zofran Inj) 4 mg IVP Q4H PRN PRN Reason: Nausea/Vomiting Last Admin: 07/03/18 02:21 Dose: 4 mg Pantoprazole Sodium (Protonix Ec Tab) 40 mg PO 0600 [facility] Last Admin: 07/08/18 06:55 Dose: 40 mg Sodium Bicarbonate (Sodium Bicarbonate Tab) 1,300 mg PO QID [facility] Last Admin: 07/08/18 14:15 Dose: 1,300 mg Vitamin B Complex/Vit C/Folic Acid (Nephro-Jenny) 1 tab PO 0800 [facility] Last Admin: 07/08/18 09:43 Dose: 1 tab - Labs Labs: 07/08/18 08:00 07/08/18 08:00 PT 14.4 SECONDS (9.4-12.5) H 07/02/18 16:15 INR 1.30 07/02/18 16:15 APTT 39.1 Seconds (26.9-38.3) H 07/02/18 16:15 - Constitutional Appears: Well, Non-toxic, No Acute Distress - Head Exam Head Exam: ATRAUMATIC, NORMOCEPHALIC - Eye Exam Eye Exam: EOMI, Normal appearance, PERRL - ENT Exam ENT Exam: Mucous Membranes Moist, Normal Exam - Respiratory Exam Respiratory Exam: Clear to Ausculation Bilateral, NORMAL BREATHING PATTERN - Cardiovascular Exam Cardiovascular Exam: RRR. absent: Murmur - GI/Abdominal Exam GI & Abdominal Exam: Soft. absent: Tenderness - Extremities Exam Additional comments: BL LE warm and dry to touch; optifoam dressings in place w/ no discharge/ erythema appreciated. Multiple amputations noted. - Neurological Exam Neurological Exam: Alert, Awake, CN II-XII Intact - Psychiatric Exam Psychiatric exam: Normal Affect, Normal Mood - Skin Skin Exam: Dry, Intact, Warm Assessment and Plan - Assessment and Plan (Free Text) Assessment: 62F PMHx DM2 (last A1c 6.8), HTN, CKD Stage IV, Osteoarthritis, Anemia of Chronic Kidney Disease, Seizures, Hearing Loss, and Osteomyelitis presented to [facility] [facility] ED referred from podiatry (Dr. Raymond) for R heel cellulitis and Left 5th metatarsal ulceration; noted to be in severe sepsis upon admission. Plan: R Heel Osteomyelitis with L 5th metatarsal ulceration - Afebrile w/o leukocytosis - c/w zyvox as per ID recs - ID Following. Will follow up recs in regards to new osteo finding. - MRI Right Ankle: suggestive of osteomyelitis. - MRI Left Ankle: no evidence of osteomyelitis. - Wound Cx - growing MRSA - Blood Cx 07/02 - negative to date - Podiatry Following, recs appreciated. - PT recommends home with services FREDY on Stage IV CKD - Resolved - BUN/Cr is improving - IV NS as per nephro - Vitamin B Complex/Vit C/Folic Acid (Nephro-Jenny) - Nephro following Anemia - Anemia of CKD ; Less likely suspect GI bleed - stable - s/p x1u PRBC during hospital course - Hb stable at this time - Darbepoetin Brown (Aranesp) 100 mcg SC QWK [facility] - Ferrous Gluconate (Fergon) 324 mg PO TID [facility] - Cyanocobalamin (Vitamin B12 1000 Mcg Tab) 500 mcg PO DAILY [facility] - CT A/P: no acute findings; no bleed - GI Consulted - no plans for acute EGD at this time; can f/u as outpt for capsule endoscopy - Heme/Onc following, recs appreciated Hx HTN - Metoprolol Succinate (Toprol Xl) 50 mg PO DAILY [facility] - Aspirin (Ecotrin) 81 mg PO DAILY [facility] Hx DM - Insulin Human Lispro (Humalog Low) 0 units SC ACHS [facility]; Protocol Hx Seizure - Levetiracetam (Keppra) 500 mg PO BID [facility] PPX: Hold Heparin at this time SCD Protonix Dispo: New finding of osteo on right ankle MRI. Pending ID recs for management of antibiotics. Will continue to monitor on med/surg. Case was discussed and reviewed with Attending Physician, Dr. Alonzo <Chaparro Alonzo - Last Filed: 07/10/18 13:50> Objective - Vital Signs/Intake and Output Vital Signs (last 24 hours): Temp Pulse Resp BP Pulse Ox 98.4 F 83 20 144/58 L 100 07/09/18 14:00 07/09/18 14:00 07/09/18 14:00 07/09/18 14:00 07/09/18 14:00 - Labs Labs: 07/09/18 07:20 07/09/18 07:20 PT 14.4 SECONDS (9.4-12.5) H 07/02/18 16:15 INR 1.30 07/02/18 16:15 APTT 39.1 Seconds (26.9-38.3) H 07/02/18 16:15 Attending/Attestation - Attestation I have personally seen and examined this patient.: Yes I have fully participated in the care of the patient.: Yes I have reviewed all pertinent clinical information, including history, physical exam and plan: Yes Notes (Text): 07/10/18 13:50 Medical record note made by the resident after discussion with my direction and input after the patient was personally seen and examined by me. I have reviewed the chart and agree that the record accurately reflects by personal performance of the history, physical exam, data review, and medical decision-making, in the course for the patient. I have also personally directed the plan of care.
[2018-07-08] MEDS: Nystatin 100,000 Units/gm Topical Pow(15 gm) TOP SCH (18:10)
--- NOTE | 2018-07-09 | PN ---
DATE: 07/08/2018 SUBJECTIVE: The patient was seen early this morning, in no acute distress, nontoxic. No fever. No chills. PHYSICAL EXAMINATION: VITAL SIGNS: Temperature is 98, blood pressure is 120/70, respiratory rate of 16. HEENT: Unremarkable. NECK: Supple. LUNGS: Have decreased breath sounds. HEART: Normal S1, S2. ABDOMEN: Soft, nontender. LABORATORY DATA: Reveals the patient's white count is 7.8, sed rate is elevated at 148. Chemistries are noted, creatinine of 1.3. ASSESSMENT AND PLAN: A 62-year-old female with multiple comorbidities, sepsis, left-sided health-care associated pneumonia, multiple allergies, with methicillin-resistant Staphylococcus aureus cellulitis, with an MRI that is positive for osteomyelitis. She will need four weeks of antibiotics with complete blood count, SMA-18, sedimentation rate, C-reactive protein once weekly. Carroll Castellano MD
[2018-07-09] MEDS: Sodium Chloride 0.45% 1,000 ML IV SCH (00:16)
[2018-07-09] MEDS: Pantoprazole 40 mg EC Tab PO SCH (05:35)
[2018-07-09 07:40] VITALS: RESP 20; O2SAT 100
[2018-07-09 07:40] LABS: BASO # 0.02 {null, K/mm3} (0.0-2.0); BASO % 0.3 % (0.0-3.0); EOS # 0.3 (0.0-0.7); EOS % 3.6 % (1.5-5.0); HEMOGLOBIN 8.6 g/dL (12.0-16.0); LYMPH # 2.1 (1.2-3.4); LYMPH % 28.7 % (22.0-35.0); MEAN CELL VOLUME 92.2 fl (80.0-105.0); MEAN CORPUSCULAR HEMOGLOBIN 29.1 pg (25.0-35.0); MEAN CORPUSCULAR HGB CONC 31.5 g/dl (31.0-37.0); MEAN PLATELET VOLUME 9.3 fl (7.0-11.0); MONO # 0.6 (0.1-0.6); MONO % 8.5 % (1.0-6.0); RBC 2.96 {null, 10^6/uL} (3.5-6.1); RED CELL DISTRIBUTION WIDTH 15.1 % (11.5-14.5); WHITE BLOOD COUNT 7.1 {null, 10^3/uL} (4.5-11.0)
[2018-07-09 07:56] LABS: ALBUMIN 3.5 g/dL (3.0-4.8)
[2018-07-09] MEDS: Insulin Lispro (humaLOG) LOW Coverage SC SCH (07:56)
[2018-07-09] MEDS: Multivitamin Vitamin B Complex (Nephro-Vite) Tab PO SCH (09:40)
[2018-07-09] MEDS: Metoprolol Succinate 50 mg XL Tab PO SCH (09:41)
[2018-07-09] MEDS: Nystatin 100,000 Units/gm Topical Pow(15 gm) TOP SCH (09:42)
[2018-07-09] MEDS: Mupirocin 2% Ointment 15 GM TUBE TOP SCH (09:43)
--- NOTE | 2018-07-09 12:03 | CP.PCM.PN ---
Subjective - Date & Time of Evaluation Date of Evaluation: 07/09/18 Time of Evaluation: 12:03 - Subjective Subjective: Nephrology Consultation Note: Assessment: stable Acute Kidney Injury (N17.9) Improving sepsis with feet cellulitis PNA with osteomyelitis HAGMA With lactic acidosis anemia of chronic disease, metabolic acidosis (dRTA), hyperkalemia Diabetic chronic Kidney Disease (E11.22) Hypertensive Chronic Kidney Disease (I12.9) Chronic Kidney Disease (N18.3) Stage 3 hearing loss, esophageal stenosis, basal cell CA on nasal skin s/p removal, hx of seizure, recurrent FREDY Plan No acute need for renal replacement therapy at this time. No ACEI/ARB due to FREDY and recurrent hyperkalemia. maintain hemodynamics stable. avoid hypotension Monitor Input/Output, daily weights and renal function with basic metabolic panel continue Sodium bicarb 1300 mg QID dose of ananesp 100 mcg on 07/03/18, as needed PRBC transfusion. On iron and MVI continue with IVF as 0.45% saline as her her serum Na on higher side. podiatry ID GI following supplement lytes as needed Dose meds/antibiotics for reduced GFR. Avoid fleets enema/magnesium based laxatives. Avoid nephrotoxins/NSAIDs/ iodinated contrast (unless needed emergently) Glycemic control Further work up/management as per primary team Thanks for allowing me to participate in care of your patient. Will follow patient with you. Please call if any Qs. had d/w team Dr Javier Reyes Office: [phone] CC; heel wound/ulcer reason for consult: CKD management HPI: Pt is a 62 y/o F with hx of diabetes Mellitus ( x 8-9 years) with retinopathy, hypertension, hearing loss, esophageal stenosis, chronic anemia, basal cell CA on nasal skin s/p removal, recurrent AKIs, now has CKD stage 3 with anemia, RTA and hyperkalemia, seizure came with feet wound and infection with sepsis renal consult for CKD management. Denies chest pain, palpitation, shortness of breath, leg swelling. Had chronic loose stool 2-3 times/day but better now a days. ROS: no CP/SOB. no pain abdomen. all other negative except feet wound General Appearance: comfortable, in no acute respiratory distress, co-operative. thin built. Vitals reviewed and noted Head; Atraumatic, normocephalic ENT: no ulcers no thrush. Tongue is midline. Oropharynx: no rash or ulcers. Hard of hearing. Uses hearing aid. EYES: Pupils are equal, round and reactive to light accommodation. Eye muscles and extraocular movement intact. Sclera is anicteric. Neck; supple no lymphadenopathy, no thyromegaly or bruit Lungs: Normal respiratory rate/effort. Breath sounds bilateral equal and clear Heart: normal rate. s1s2 normal. No rub or gallop. Extremities: no edema with wound dressed at feet. No varicose veins. Hand osteoarthritic deformities +. Neurological: Patient is alert, awake and oriented to person, place and time. No focal deficit. Strength bilateral appropriate and equal Skin: Warm and dry. Normal turgor. Palpitation: Normal elasticity for age. Abdomen: Abdomen is soft. Bowel sounds +. There is no abdominal tenderness, no guarding/rigidity or organomegaly Psych: normal insight and normal affect/mood MSK: no joint tenderness or swelling. : kidney or bladder not palpable Labs/imaging reviewed. Past medical history, past surgical history, family history, social history, allergy reviewed and noted as below Family hx: no hx of CKD. Rest non-contributory Work up: 09/13/2016: GN serologies all negative, scleroderma work up neg, SPEP/LUDY neg Renal sono: b/l cortical atrophy. Small 1 cm Rt kidney simple cyst. Objective - Vital Signs/Intake and Output Vital Signs (last 24 hours): Temp Pulse Resp BP Pulse Ox 98.2 F 98 H 20 128/70 100 07/09/18 06:00 07/09/18 06:00 07/09/18 06:00 07/09/18 09:41 07/09/18 06:00 Intake and Output: 07/09/18 07/09/18 06:59 18:59 Intake Total 540 300 Balance 540 300 - Medications Medications: Current Medications Acetaminophen (Tylenol 650 Mg Supp) 650 mg RC Q4H PRN PRN Reason: Fever >100.4 F Aspirin (Ecotrin) 81 mg PO DAILY [facility] Last Admin: 07/09/18 09:40 Dose: 81 mg Cyanocobalamin (Vitamin B12 1000 Mcg Tab) 500 mcg PO DAILY [facility] Last Admin: 07/09/18 09:40 Dose: 500 mcg Darbepoetin Brown (Aranesp) 100 mcg SC QWK [facility] Last Admin: 07/03/18 11:04 Dose: 100 mcg Dextrose (Dextrose 50% Inj) 0 ml IV STAT PRN; Protocol PRN Reason: Hypoglycemia Protocol Ferrous Gluconate (Fergon) 324 mg PO TID [facility] Last Admin: 07/09/18 09:40 Dose: 324 mg Heparin Sodium (Porcine) (Heparin) 5,000 units SC Q8 [facility]; Protocol Last Admin: 07/03/18 13:14 Dose: 5,000 units Dextrose (Dextrose 5% In Water 1000 Ml) 1,000 mls @ 0 mls/hr IV .Q0M PRN; Protocol PRN Reason: Hypoglycemia Protocol Sodium Chloride (Sodium Chloride 0.45%) 1,000 mls @ 60 mls/hr IV .[id number] [facility] Last Admin: 07/09/18 00:16 Dose: 60 mls/hr Insulin Human Lispro (Humalog Low) 0 units SC ACHS [facility]; Protocol Last Admin: 07/09/18 07:56 Dose: Not Given Levetiracetam (Keppra) 500 mg PO BID [facility] Last Admin: 07/09/18 09:41 Dose: 500 mg Linezolid (Zyvox) 600 mg PO BID [facility]; Protocol Stop: 07/15/18 10:01 Last Admin: 07/09/18 09:40 Dose: 600 mg Megestrol Acetate (Megace) 40 mg PO DAILY [facility] Last Admin: 07/09/18 09:40 Dose: 40 mg Metoprolol Succinate (Toprol Xl) 50 mg PO DAILY [facility] Last Admin: 07/09/18 09:41 Dose: 50 mg Mupirocin (Bactroban Ointment) 0 gm TOP DAILY [facility] Last Admin: 07/09/18 09:43 Dose: 1 applic Nystatin (Nystop Topical Powder) 0 gm TOP BID [facility] Last Admin: 07/09/18 09:42 Dose: 1 applic Ondansetron HCl (Zofran Inj) 4 mg IVP Q4H PRN PRN Reason: Nausea/Vomiting Last Admin: 07/03/18 02:21 Dose: 4 mg Pantoprazole Sodium (Protonix Ec Tab) 40 mg PO 0600 [facility] Last Admin: 07/09/18 05:35 Dose: 40 mg Sodium Bicarbonate (Sodium Bicarbonate Tab) 1,300 mg PO QID [facility] Last Admin: 07/09/18 09:39 Dose: 1,300 mg Vitamin B Complex/Vit C/Folic Acid (Nephro-Jenny) 1 tab PO 0800 [facility] Last Admin: 07/09/18 09:40 Dose: 1 tab - Labs Labs: 07/09/18 07:20 07/09/18 07:20 PT 14.4 SECONDS (9.4-12.5) H 07/02/18 16:15 INR 1.30 07/02/18 16:15 APTT 39.1 Seconds (26.9-38.3) H 07/02/18 16:15
--- NOTE | 2018-07-09 12:10 | CP.PCM.PN ---
Subjective - Date & Time of Evaluation Date of Evaluation: 07/09/18 Time of Evaluation: 12:07 - Subjective Subjective: Podiatry progress note - Drs. Raymond/Twila 62F seen and evaluated at bedside this AM with Dr. Mattson. Resting comfortably with no acute complaints. Denies pain to b/l feet and reports no events overnight. Denies n/v/f/c today. Objective - Vital Signs/Intake and Output Vital Signs (last 24 hours): Temp Pulse Resp BP Pulse Ox 98.2 F 98 H 20 128/70 100 07/09/18 06:00 07/09/18 06:00 07/09/18 06:00 07/09/18 09:41 07/09/18 06:00 Intake and Output: 07/09/18 07/09/18 06:59 18:59 Intake Total 540 300 Balance 540 300 - Medications Medications: Current Medications Acetaminophen (Tylenol 650 Mg Supp) 650 mg RC Q4H PRN PRN Reason: Fever >100.4 F Aspirin (Ecotrin) 81 mg PO DAILY [facility] Last Admin: 07/09/18 09:40 Dose: 81 mg Cyanocobalamin (Vitamin B12 1000 Mcg Tab) 500 mcg PO DAILY [facility] Last Admin: 07/09/18 09:40 Dose: 500 mcg Darbepoetin Brown (Aranesp) 100 mcg SC QWK [facility] Last Admin: 07/03/18 11:04 Dose: 100 mcg Dextrose (Dextrose 50% Inj) 0 ml IV STAT PRN; Protocol PRN Reason: Hypoglycemia Protocol Ferrous Gluconate (Fergon) 324 mg PO TID [facility] Last Admin: 07/09/18 09:40 Dose: 324 mg Heparin Sodium (Porcine) (Heparin) 5,000 units SC Q8 [facility]; Protocol Last Admin: 07/03/18 13:14 Dose: 5,000 units Dextrose (Dextrose 5% In Water 1000 Ml) 1,000 mls @ 0 mls/hr IV .Q0M PRN; Protocol PRN Reason: Hypoglycemia Protocol Sodium Chloride (Sodium Chloride 0.45%) 1,000 mls @ 60 mls/hr IV .[id number] [facility] Last Admin: 07/09/18 00:16 Dose: 60 mls/hr Insulin Human Lispro (Humalog Low) 0 units SC ACHS [facility]; Protocol Last Admin: 07/09/18 07:56 Dose: Not Given Levetiracetam (Keppra) 500 mg PO BID [facility] Last Admin: 07/09/18 09:41 Dose: 500 mg Linezolid (Zyvox) 600 mg PO BID [facility]; Protocol Stop: 07/15/18 10:01 Last Admin: 07/09/18 09:40 Dose: 600 mg Megestrol Acetate (Megace) 40 mg PO DAILY [facility] Last Admin: 07/09/18 09:40 Dose: 40 mg Metoprolol Succinate (Toprol Xl) 50 mg PO DAILY [facility] Last Admin: 07/09/18 09:41 Dose: 50 mg Mupirocin (Bactroban Ointment) 0 gm TOP DAILY [facility] Last Admin: 07/09/18 09:43 Dose: 1 applic Nystatin (Nystop Topical Powder) 0 gm TOP BID [facility] Last Admin: 07/09/18 09:42 Dose: 1 applic Ondansetron HCl (Zofran Inj) 4 mg IVP Q4H PRN PRN Reason: Nausea/Vomiting Last Admin: 07/03/18 02:21 Dose: 4 mg Pantoprazole Sodium (Protonix Ec Tab) 40 mg PO 0600 [facility] Last Admin: 07/09/18 05:35 Dose: 40 mg Sodium Bicarbonate (Sodium Bicarbonate Tab) 1,300 mg PO QID [facility] Last Admin: 07/09/18 09:39 Dose: 1,300 mg Vitamin B Complex/Vit C/Folic Acid (Nephro-Jenny) 1 tab PO 0800 [facility] Last Admin: 07/09/18 09:40 Dose: 1 tab - Labs Labs: 07/09/18 07:20 07/09/18 07:20 PT 14.4 SECONDS (9.4-12.5) H 07/02/18 16:15 INR 1.30 07/02/18 16:15 APTT 39.1 Seconds (26.9-38.3) H 07/02/18 16:15 - Constitutional Appears: Non-toxic - Head Exam Head Exam: ATRAUMATIC - Extremities Exam Additional comments: Lower extremity focused examination: Vasc: DP/PT pulses palpable 2/4 B/L. Temperature gradient warm to warm from proximal to distal. Cap refill time: < 3 sec to all digits, mild non-pitting edema noted on bilateral LE (R>L) Neuro: Protective sensation is grossly intact B/L Derm: Right- right lateral malleolar ulceration measuring about 1 cm X 1 cm with overlying eschar, significant inflammation noted gianluca wound, positive erythema and drainage, tender on palpation, plantar fissure noted with dry blood, 1cc of pus drained from site Left- left submetatarsal 5th ulceration with positive serous drainage and gianluac wound erythema MSK: No pain on palpation of the foot wound. Left ankle ulceration mildly tender - Neurological Exam Neurological Exam: Alert, Awake, Oriented x3 - Psychiatric Exam Psychiatric exam: Normal Affect Assessment and Plan - Assessment and Plan (Free Text) Assessment: 62F with b/l foot ulcerations Plan: Patient seen and evaluated with Dr. Mattson VSS, WBC 7.1 Foot Xray- no evidence of acute osteomyelitis noted Wound culture - MRSA Wound care: bactroban and Mepilex Continue IV Abx RLE MRI - focal marrow edema at posterior calcaneus and distal fibula appreciated F/u with Dr. Raymond at wound clinic as outpatient Fitting for shoes this week according to patient Surgical shoes dispensed to patient for ambulation upon discharge Will continue to follow
[2018-07-09 14:30] VITALS: BP 144/58; PULSE 83; TEMP 98.4
--- NOTE | 2018-07-09 15:28 | CP.PCM.DIS ---
<Pal,Александр - Last Filed: 07/09/18 17:17> Provider - Provider Date of Admission: 07/02/18 16:44 Attending physician: Chaparro Alonzo MD Primary care physician: Arden Galvez MD Consults: 07/02/18 17:55 Physician Consult Routine Comment: Consulting Provider: Tod Nair Consulting Physician: Tod Nair Reason for Consult: cellulitis; failed outpatient antibx 07/02/18 17:56 Podiatry Consult Routine Comment: Consulting Provider: Jose Raymond Consulting Physician: Jose Raymond Reason for Consult: LE cellulitis 07/02/18 22:52 Nursing Referral for Palliative Care Routine Comment: Physician Instructions: Reason For Exam: EVALUATION Social Work Referral Routine Comment: NEEDS ASSISTANCE AT HOME,WOUND CARE. Physician Instructions: Reason For Exam: EVALUATION 07/02/18 23:00 Nursing Referral for Wound Care Routine Comment: DM FOOT ULCER- RIGHT LATERAL ASPECT OF HEEL. Physician Instructions: Reason For Exam: EVALUATION 07/03/18 07:07 Consult [Physician Consult] Routine Comment: Consulting Provider: Javier Reyes Consulting Physician: Javier Reyes Reason for Consult: acute on chronic renal failure 07/03/18 09:06 Nursing Referral for Wound Care Routine Comment: Physician Instructions: Reason For Exam: left foot and right lateral ankle. 07/04/18 12:14 Hematology Oncology Consult Routine Comment: Consulting Provider: Benoit Miguel Consulting Physician: Benoit Miguel Reason for Consult: anema, positive KAREL Time Spent in preparation of Discharge (in minutes): 35 Hospital Course - Lab Results Lab Results: Micro Results 07/04/18 19:00 Foot - Left Gram Stain - Final 07/04/18 19:00 Foot - Left Wound Culture - Final Methicillin Resistant S Aureus 07/02/18 17:00 Blood Blood Culture - Final NO GROWTH AFTER 5 DAYS 07/02/18 17:00 Blood Gram Stain - Final TEST NOT PERFORMED 07/02/18 16:30 Blood Blood Culture - Final NO GROWTH AFTER 5 DAYS 07/02/18 16:30 Blood Gram Stain - Final TEST NOT PERFORMED 07/04/18 19:00 Foot - Left Gram Stain - Final 07/04/18 19:00 Foot - Left Wound Culture - Final Methicillin Resistant S Aureus 07/04/18 19:00 Foot - Right Gram Stain - Final 07/04/18 19:00 Foot - Right Wound Culture - Final Methicillin Resistant S Aureus 07/04/18 19:00 Foot - Right Gram Stain - Final 07/04/18 19:00 Foot - Right Wound Culture - Final Methicillin Resistant S Aureus 07/04/18 19:00 Ankle - Right Gram Stain - Final 07/04/18 19:00 Ankle - Right Wound Culture - Final Methicillin Resistant S Aureus 07/04/18 20:20 Nose MRSA Culture (Admit) - Final MRSA NOT DETECTED 07/03/18 00:05 Urine,Clean Catch Urine Culture - Final No Growth (<1,000 CFU/ML) Most Recent Lab Values WBC 7.1 10^3/uL (4.5-11.0) 07/09/18 07:20 RBC 2.96 10^6/uL (3.5-6.1) L 07/09/18 07:20 Hgb 8.6 g/dL (12.0-16.0) L 07/09/18 07:20 Hct 27.3 % (36.0-48.0) L 07/09/18 07:20 MCV 92.2 fl (80.0-105.0) 07/09/18 07:20 MCH 29.1 pg (25.0-35.0) 07/09/18 07:20 MCHC 31.5 g/dl (31.0-37.0) 07/09/18 07:20 RDW 15.1 % (11.5-14.5) H 07/09/18 07:20 Plt Count 235 10^3/uL (120.0-450.0) 07/09/18 07:20 MPV 9.3 fl (7.0-11.0) 07/09/18 07:20 Neut % (Auto) 58.9 % (50.0-68.0) 07/09/18 07:20 Lymph % (Auto) 28.7 % (22.0-35.0) 07/09/18 07:20 Pender % (Auto) 8.5 % (1.0-6.0) H 07/09/18 07:20 Eos % (Auto) 3.6 % (1.5-5.0) 07/09/18 07:20 Baso % (Auto) 0.3 % (0.0-3.0) 07/09/18 07:20 Lymph # (Auto) 2.1 (1.2-3.4) 07/09/18 07:20 Pender # (Auto) 0.6 (0.1-0.6) 07/09/18 07:20 Eos # (Auto) 0.3 (0.0-0.7) 07/09/18 07:20 Baso # (Auto) 0.02 K/mm3 (0.0-2.0) 07/09/18 07:20 Absolute Neuts (auto) 4.20 (1.4-6.5) 07/09/18 07:20 ESR 148 mm/hr (0.0-20.0) H 07/02/18 18:30 Haptoglobin 405.4 mg/dL (30.0-200.0) H 07/04/18 14:00 PT 14.4 SECONDS (9.4-12.5) H 07/02/18 16:15 INR 1.30 07/02/18 16:15 APTT 39.1 Seconds (26.9-38.3) H 07/02/18 16:15 pO2 49 mm/Hg (30-55) 07/03/18 11:15 VBG pH 7.38 (7.32-7.43) 07/03/18 11:15 VBG pCO2 26.0 (40-60) L 07/03/18 11:15 VBG HCO3 15.4 mmol/l (21-28) L 07/03/18 11:15 VBG Total CO2 16.2 mmol.L (22-28) L 07/03/18 11:15 VBG O2 Sat (Calc) 88.6 % (40-65) H 07/03/18 11:15 VBG Base Excess -8.0 mmol/L (0.0-2.0) L 07/03/18 11:15 VBG Potassium 4.4 mmol/L (3.6-5.2) 07/03/18 11:15 Sodium 142.0 mmol/L (132-148) 07/03/18 11:15 Chloride 113.0 mmol/L (98-107) H 07/03/18 11:15 Glucose 175 mg/dl (65-105) H 07/03/18 11:15 Lactate 1.5 mmol/L (0.7-2.1) 07/03/18 11:15 FiO2 21.0 % 07/03/18 11:15 Crit Value Called To Peg schilling 07/03/18 11:15 Crit Value Called By Michi 07/03/18 11:15 Blood Gas Notified Time 1130 07/03/18 11:15 Sodium 147 mmol/L (132-148) 07/09/18 07:20 Potassium 4.0 mmol/L (3.6-5.0) 07/09/18 07:20 Chloride 117 mmol/L (98-107) H 07/09/18 07:20 Carbon Dioxide 18 mmol/L (21-33) L 07/09/18 07:20 Anion Gap 16 (10-20) 07/09/18 07:20 BUN 25 mg/dL (7-21) H 07/09/18 07:20 Creatinine 1.3 mg/dl (0.7-1.2) H 07/09/18 07:20 Est GFR ( Amer) 51 07/09/18 07:20 Est GFR (Non-Af Amer) 42 07/09/18 07:20 POC Glucose (mg/dL) 199 mg/dL (65-110) H 07/09/18 11:52 Random Glucose 115 mg/dL (70-110) H 07/09/18 07:20 Hemoglobin A1c 6.2 % (4.2-6.5) 07/03/18 06:59 Calcium 9.0 mg/dL (8.4-10.5) 07/09/18 07:20 Phosphorus 3.6 mg/dL (2.5-4.5) 07/03/18 06:25 Magnesium 2.2 mg/dL (1.7-2.2) 07/03/18 06:25 Iron 10 ug/dL (45-180) L 07/03/18 14:00 TIBC 154 ug/dL (265-497) L 07/03/18 14:00 % Saturation 7 % (20-55) L 07/03/18 14:00 Ferritin 1680.0 ng/mL 07/02/18 18:30 Total Bilirubin 0.4 mg/dL (0.2-1.3) 07/09/18 07:20 AST 30 U/L (14-36) 07/09/18 07:20 ALT 30 U/L (7-56) 07/09/18 07:20 Alkaline Phosphatase 116 U/L (38-126) 07/09/18 07:20 Lactate Dehydrogenase 628 U/L (333-699) 07/04/18 14:00 Troponin I 0.05 ng/mL D 07/03/18 06:25 C-Reactive Protein 261.50 mg/L (0.0-9.9) H 07/02/18 18:30 Total Protein 6.7 g/dL (5.8-8.3) 07/09/18 07:20 Albumin 3.5 g/dL (3.0-4.8) 07/09/18 07:20 Globulin 3.3 gm/dL 07/09/18 07:20 Albumin/Globulin Ratio 1.0 (1.1-1.8) L 07/09/18 07:20 Vitamin B12 914 pg/mL (239-931) 07/02/18 18:30 Folate > 20.0 ng/mL 07/02/18 18:30 Procalcitonin 53.85 NG/ML (0.19-0.49) H 07/03/18 14:10 Venous Blood Potassium 4.4 mmol/L (3.6-5.2) 07/03/18 11:15 Urine Color Yellow (YELLOW) 07/03/18 22:26 Urine Appearance Clear (CLEAR) 07/03/18 22:26 Urine pH 7.5 (4.7-8.0) 07/03/18 22:26 Ur Specific [place] 1.010 (1.005-1.035) 07/03/18 22:26 Urine Protein Trace mg/dL (<30 mg/dL) H 07/03/18 22:26 Urine Glucose (UA) Negative mg/dL (NEGATIVE) 07/03/18 22:26 Urine Ketones Negative mg/dL (NEGATIVE) 07/03/18 22:26 Urine Blood Trace-lysed (NEGATIVE) H 07/03/18 22:26 Urine Nitrate Negative (NEGATIVE) 07/03/18 22:26 Urine Bilirubin Negative (NEGATIVE) 07/03/18 22:26 Urine Urobilinogen 0.2 E.U./dL (<1 E.U./dL) 07/03/18 22:26 Ur Leukocyte Esterase Negative Altaf/uL (NEGATIVE) 07/03/18 22:26 Urine RBC 1 - 3 /hpf (0-2) H 07/03/18 22:26 Urine WBC 2 - 5 /hpf (0-6) 07/03/18 22:26 Ur Epithelial Cells 1 - 3 /hpf (0-5) 07/03/18 22:26 Urine Bacteria Few /hpf (NONE) 07/03/18 22:26 Ur L.pneumophila Ag Negative (NEGATIVE) 07/03/18 22:26 Blood Type B POSITIVE 07/03/18 17:11 Antibody Screen Positive 07/03/18 17:11 Antibody Identification NON SPECIFIC WARM ANTIBODY 07/03/18 17:11 KAREL, Poly Interpret Positive (NEGATIVE) H 07/03/18 17:11 Crossmatch See Detail 07/03/18 17:11 BBK History Checked Patient has bt 07/03/18 17:11 - Hospital Course Hospital Course: Александр Vaz, PGY1 Discharge Summary for Dr. Alonzo Patient is a 62 year old female with PMHx DM2 (last A1c 6.8), HTN, CKD Stage IV, Osteoarthritis, Anemia of Chronic Kidney Disease, Seizures, Hearing Loss, and Osteomyelitis who presented to [facility] as advised by her operating room orderly, Dr. Raymond, for evaluation of R-heel cellulitis and left 5th metatarsal ulceration. Of note, patient has a previous admission on 01/2018 for sepsis 2/2 cellulitis and osteomyelitis in which she was found to be +MRSA on wound cultures and treated with vancomycin. Given her history of MRSA, she was placed on contact precautions. During this admission, patient met SIRS criteria and overnight she went into sepsis: lactate 3.3, HR 148, Tmax 103. Patient was resuscitated adequately with IVF and given antibiotics. She was admitted for Severe Sepsis 2/2 Right Heel Cellulitis with Left 5th Metatarsal Ulceration. During sepsis work up, patient also noted to have left lung consolidation suggestive of PNA. She also presented with an FREDY ontop of her CKD and anemia on top of her anemia of chronic kidney disease. Podiatry, ID, and Nephro were consulted. Sepsis improved during hospital course. However, she had a Hgb drop to 5.4 in which she was transfused x1 pRBC. Her Hgb responded appropriately s/p transfusion. CT A/P was negative for intra-abdominal bleed. GI was consulted but signed off the case, recommending outpatient workup. Heme/onc also consulted and provided no further recs as anemia is likely due to chronic kidney disease. ESR and CRP was elevated. MRI of right ankle was done and it confirmed osteomyelitis. It is important to note that patient has multiple antibiotic allergies. Discussed with ID that patient may be given 4 weeks of PO zyvox for treatment of her osteo. Her FREDY also resolved during hospital course. Blood Cx and urine cx were negative. Given all labs, vitals, and imaging, patient is stable for discharge to home. Upon discharge, she will follow up with her PMD, GI doctor, and Tool Keeper. She will resume home meds and be given zyvox PO x4 weeks. She will also be given a script for weekly blood work for cbc, cmp, esr, and crp. Patient verbalized understanding. Discharge Exam - Head Exam Head Exam: ATRAUMATIC, NORMAL INSPECTION, NORMOCEPHALIC - Eye Exam Eye Exam: EOMI, Normal appearance Pupil Exam: NORMAL ACCOMODATION - ENT Exam ENT Exam: Mucous Membranes Moist - Respiratory Exam Respiratory Exam: Clear to PA & Lateral. absent: Accessory Muscle Use, Chest Wall Tenderness, Rales, Rhonchi, Wheezes, Respiratory Distress - Cardiovascular Exam Cardiovascular Exam: RRR, +S1, +S2. absent: Systolic Murmur - GI/Abdominal Exam GI & Abdominal Exam: Normal Bowel Sounds. absent: Distended, Firm, Guarding, Rebound, Rigid - Extremities Exam Extremities exam: pedal pulses present Additional comments: BL LE warm and dry to touch; optifoam dressings in place w/ no discharge/ erythema appreciated. Multiple amputations noted. - Back Exam Back exam: NORMAL INSPECTION - Neurological Exam Neurological exam: Alert, CN II-XII Intact, Oriented x3 - Psychiatric Exam Psychiatric exam: Normal Affect, Normal Mood - Skin Skin Exam: Dry, Intact, Normal Color, Warm Discharge Plan - Discharge Medications Prescriptions: Linezolid [Zyvox] 600 mg PO BID #56 tab Linezolid [Zyvox] 600 mg PO BID #56 tab - Follow Up Plan Condition: STABLE Disposition: HOME/ ROUTINE Instructions: Type 2 Diabetes, Methicillin-Resistant Staphylococcus aureus (MRSA), Wound Care, Osteomyelitis (DC), Cellulitis (ED) Additional Instructions: - Please follow up with your Primary Care Doctor (Dr. Galvez) within 3-4 days of discharge. - You are being given the following antibiotic on discharge. Please take as prescribed: - Zyvox 600mg twice a day for a total of 4 weeks - You may resume the rest of your home medications as prescribed. - You have also been given a script for weekly blood work that must be done every week for 4 weeks: CBC [with diff] CMP ESR CRP - Please follow up with your Gastrointestinal Doctor within 1 week of discharge for your anemia. - Please continue to follow up with your Tool Keeper (Dr. Raymond) at the wound clinic as outpatient. - Please return to the nearest emergency department if your symptoms worsen or reoccur. Referrals: Arden Galvez MD [Primary Care Provider] - <Chaparro Alonzo - Last Filed: 07/10/18 13:49> Provider - Provider Date of Admission: 07/02/18 16:44 Attending physician: Chaparro Alonzo MD Primary care physician: Arden Galvez MD Consults: 07/02/18 17:55 Physician Consult Routine Comment: Consulting Provider: Tod Nair Consulting Physician: Tod Nair Reason for Consult: cellulitis; failed outpatient antibx 07/02/18 17:56 Podiatry Consult Routine Comment: Consulting Provider: Jose Raymond Consulting Physician: Jose Raymond Reason for Consult: LE cellulitis 07/02/18 22:52 Nursing Referral for Palliative Care Routine Comment: Physician Instructions: Reason For Exam: EVALUATION Social Work Referral Routine Comment: NEEDS ASSISTANCE AT HOME,WOUND CARE. Physician Instructions: Reason For Exam: EVALUATION 07/02/18 23:00 Nursing Referral for Wound Care Routine Comment: DM FOOT ULCER- RIGHT LATERAL ASPECT OF HEEL. Physician Instructions: Reason For Exam: EVALUATION 07/03/18 07:07 Consult [Physician Consult] Routine Comment: Consulting Provider: Javier Reyes Consulting Physician: Javier Reyes Reason for Consult: acute on chronic renal failure 07/03/18 09:06 Nursing Referral for Wound Care Routine Comment: Physician Instructions: Reason For Exam: left foot and right lateral ankle. 07/04/18 12:14 Hematology Oncology Consult Routine Comment: Consulting Provider: Benoit Miguel Consulting Physician: Benoit Miguel Reason for Consult: anema, positive KAREL Hospital Course - Lab Results Lab Results: Micro Results 07/04/18 19:00 Foot - Left Gram Stain - Final 07/04/18 19:00 Foot - Left Wound Culture - Final Methicillin Resistant S Aureus 07/02/18 17:00 Blood Blood Culture - Final NO GROWTH AFTER 5 DAYS 07/02/18 17:00 Blood Gram Stain - Final TEST NOT PERFORMED 07/02/18 16:30 Blood Blood Culture - Final NO GROWTH AFTER 5 DAYS 07/02/18 16:30 Blood Gram Stain - Final TEST NOT PERFORMED 07/04/18 19:00 Foot - Left Gram Stain - Final 07/04/18 19:00 Foot - Left Wound Culture - Final Methicillin Resistant S Aureus 07/04/18 19:00 Foot - Right Gram Stain - Final 07/04/18 19:00 Foot - Right Wound Culture - Final Methicillin Resistant S Aureus 07/04/18 19:00 Foot - Right Gram Stain - Final 07/04/18 19:00 Foot - Right Wound Culture - Final Methicillin Resistant S Aureus 07/04/18 19:00 Ankle - Right Gram Stain - Final 07/04/18 19:00 Ankle - Right Wound Culture - Final Methicillin Resistant S Aureus 07/04/18 20:20 Nose MRSA Culture (Admit) - Final MRSA NOT DETECTED 07/03/18 00:05 Urine,Clean Catch Urine Culture - Final No Growth (<1,000 CFU/ML) Most Recent Lab Values WBC 7.1 10^3/uL (4.5-11.0) 07/09/18 07:20 RBC 2.96 10^6/uL (3.5-6.1) L 07/09/18 07:20 Hgb 8.6 g/dL (12.0-16.0) L 07/09/18 07:20 Hct 27.3 % (36.0-48.0) L 07/09/18 07:20 MCV 92.2 fl (80.0-105.0) 07/09/18 07:20 MCH 29.1 pg (25.0-35.0) 07/09/18 07:20 MCHC 31.5 g/dl (31.0-37.0) 07/09/18 07:20 RDW 15.1 % (11.5-14.5) H 07/09/18 07:20 Plt Count 235 10^3/uL (120.0-450.0) 07/09/18 07:20 MPV 9.3 fl (7.0-11.0) 07/09/18 07:20 Neut % (Auto) 58.9 % (50.0-68.0) 07/09/18 07:20 Lymph % (Auto) 28.7 % (22.0-35.0) 07/09/18 07:20 Pender % (Auto) 8.5 % (1.0-6.0) H 07/09/18 07:20 Eos % (Auto) 3.6 % (1.5-5.0) 07/09/18 07:20 Baso % (Auto) 0.3 % (0.0-3.0) 07/09/18 07:20 Lymph # (Auto) 2.1 (1.2-3.4) 07/09/18 07:20 Pender # (Auto) 0.6 (0.1-0.6) 07/09/18 07:20 Eos # (Auto) 0.3 (0.0-0.7) 07/09/18 07:20 Baso # (Auto) 0.02 K/mm3 (0.0-2.0) 07/09/18 07:20 Absolute Neuts (auto) 4.20 (1.4-6.5) 07/09/18 07:20 ESR 148 mm/hr (0.0-20.0) H 07/02/18 18:30 Haptoglobin 405.4 mg/dL (30.0-200.0) H 07/04/18 14:00 PT 14.4 SECONDS (9.4-12.5) H 07/02/18 16:15 INR 1.30 07/02/18 16:15 APTT 39.1 Seconds (26.9-38.3) H 07/02/18 16:15 pO2 49 mm/Hg (30-55) 07/03/18 11:15 VBG pH 7.38 (7.32-7.43) 07/03/18 11:15 VBG pCO2 26.0 (40-60) L 07/03/18 11:15 VBG HCO3 15.4 mmol/l (21-28) L 07/03/18 11:15 VBG Total CO2 16.2 mmol.L (22-28) L 07/03/18 11:15 VBG O2 Sat (Calc) 88.6 % (40-65) H 07/03/18 11:15 VBG Base Excess -8.0 mmol/L (0.0-2.0) L 07/03/18 11:15 VBG Potassium 4.4 mmol/L (3.6-5.2) 07/03/18 11:15 Sodium 142.0 mmol/L (132-148) 07/03/18 11:15 Chloride 113.0 mmol/L (98-107) H 07/03/18 11:15 Glucose 175 mg/dl (65-105) H 07/03/18 11:15 Lactate 1.5 mmol/L (0.7-2.1) 07/03/18 11:15 FiO2 21.0 % 07/03/18 11:15 Crit Value Called To Peg schilling 07/03/18 11:15 Crit Value Called By Michi 07/03/18 11:15 Blood Gas Notified Time 1130 07/03/18 11:15 Sodium 147 mmol/L (132-148) 07/09/18 07:20 Potassium 4.0 mmol/L (3.6-5.0) 07/09/18 07:20 Chloride 117 mmol/L (98-107) H 07/09/18 07:20 Carbon Dioxide 18 mmol/L (21-33) L 07/09/18 07:20 Anion Gap 16 (10-20) 07/09/18 07:20 BUN 25 mg/dL (7-21) H 07/09/18 07:20 Creatinine 1.3 mg/dl (0.7-1.2) H 07/09/18 07:20 Est GFR ( Amer) 51 07/09/18 07:20 Est GFR (Non-Af Amer) 42 07/09/18 07:20 POC Glucose (mg/dL) 199 mg/dL (65-110) H 07/09/18 11:52 Random Glucose 115 mg/dL (70-110) H 07/09/18 07:20 Hemoglobin A1c 6.2 % (4.2-6.5) 07/03/18 06:59 Calcium 9.0 mg/dL (8.4-10.5) 07/09/18 07:20 Phosphorus 3.6 mg/dL (2.5-4.5) 07/03/18 06:25 Magnesium 2.2 mg/dL (1.7-2.2) 07/03/18 06:25 Iron 10 ug/dL (45-180) L 07/03/18 14:00 TIBC 154 ug/dL (265-497) L 07/03/18 14:00 % Saturation 7 % (20-55) L 07/03/18 14:00 Ferritin 1680.0 ng/mL 07/02/18 18:30 Total Bilirubin 0.4 mg/dL (0.2-1.3) 07/09/18 07:20 AST 30 U/L (14-36) 07/09/18 07:20 ALT 30 U/L (7-56) 07/09/18 07:20 Alkaline Phosphatase 116 U/L (38-126) 07/09/18 07:20 Lactate Dehydrogenase 628 U/L (333-699) 07/04/18 14:00 Troponin I 0.05 ng/mL D 07/03/18 06:25 C-Reactive Protein 261.50 mg/L (0.0-9.9) H 07/02/18 18:30 Total Protein 6.7 g/dL (5.8-8.3) 07/09/18 07:20 Albumin 3.5 g/dL (3.0-4.8) 07/09/18 07:20 Globulin 3.3 gm/dL 07/09/18 07:20 Albumin/Globulin Ratio 1.0 (1.1-1.8) L 07/09/18 07:20 Vitamin B12 914 pg/mL (239-931) 07/02/18 18:30 Folate > 20.0 ng/mL 07/02/18 18:30 Procalcitonin 53.85 NG/ML (0.19-0.49) H 07/03/18 14:10 Venous Blood Potassium 4.4 mmol/L (3.6-5.2) 07/03/18 11:15 Urine Color Yellow (YELLOW) 07/03/18 22:26 Urine Appearance Clear (CLEAR) 07/03/18 22:26 Urine pH 7.5 (4.7-8.0) 07/03/18 22: Ur Specific [place] 1.010 (1.005-1.035) 07/03/18 22: Urine Protein Trace mg/dL (<30 mg/dL) H 07/03/18 22: Urine Glucose (UA) Negative mg/dL (NEGATIVE) 07/03/18 22: Urine Ketones Negative mg/dL (NEGATIVE) 07/03/18 22: Urine Blood Trace-lysed (NEGATIVE) H 07/03/18 22: Urine Nitrate Negative (NEGATIVE) 07/03/18 22: Urine Bilirubin Negative (NEGATIVE) 07/03/18 22: Urine Urobilinogen 0.2 E.U./dL (<1 E.U./dL) 07/03/18 22: Ur Leukocyte Esterase Negative Altaf/uL (NEGATIVE) 07/03/18 22:26 Urine RBC 1 - 3 /hpf (0-2) H 07/03/18 22: Urine WBC 2 - 5 /hpf (0-6) 07/03/18 22: Ur Epithelial Cells 1 - 3 /hpf (0-5) 07/03/18 22: Urine Bacteria Few /hpf (NONE) 07/03/18 22: Ur L.pneumophila Ag Negative (NEGATIVE) 07/03/18 22: Blood Type B POSITIVE 07/03/18 17:11 Antibody Screen Positive 07/03/18 17:11 Antibody Identification NON SPECIFIC WARM ANTIBODY 07/03/18 17:11 KAREL, Poly Interpret Positive (NEGATIVE) H 07/03/18 17:11 Crossmatch See Detail 07/03/18 17:11 BBK History Checked Patient has bt 07/03/18 17:11 Attending/Attestation - Attestation I have personally seen and examined this patient.: Yes I have fully participated in the care of the patient.: Yes I have reviewed all pertinent clinical information, including history, physical exam and plan: Yes Notes (Text): 07/10/18 13:36 Patient was seen and examined with medical residents. 62 year old female with past medical history of diabetes, hypertension, CKD, osteomyelitis and seizures who was referred by her operating room orderly for right heel cellulitis and left 5th metatarsal ulceration. She was recently prescribed outpatient antibiotics. ESR and CRP was elevated. MRI of right ankle was done and it confirmed osteomyelitis. Blood Cx and urine cx were negative Discussed with ID that patient may be given 4 weeks of PO zyvox for treatment of her osteomylitis Also found to have worsening anemia, acute on chronic renal failure GI evaluation was appreciated for acute anemia. CT abdomen /pelvis was negative for acute findings. Recent EGD last year reviewed as above. No plan per GI to repeat EGD at this time. Recommended outpatient capsule endoscopy. She received one unit prbc and dose of aranesp since admission. Her hemoglobin has improved and is stable. . Her FREDY also resolved during hospital course. Creatinin is 1.3 at the time of discharge. Patient will need weekly CBC,CRP,BMP while on antibiotics. Management plan was discussed in detail with patient. Education was provided.
--- NOTE | 2018-07-09 21:12 | CP.PCM.PN ---
Subjective - Date & Time of Evaluation Date of Evaluation: 07/08/18 Time of Evaluation: 17:00 - Subjective Subjective: No complaints. Objective - Vital Signs/Intake and Output Vital Signs (last 24 hours): Temp Pulse Resp BP Pulse Ox 98.4 F 83 20 144/58 L 100 07/09/18 14:00 07/09/18 14:00 07/09/18 14:00 07/09/18 14:00 07/09/18 14:00 Intake and Output: 07/09/18 07/10/18 18:59 06:59 Intake Total 300 Balance 300 - Labs Labs: 07/09/18 07:20 07/09/18 07:20 PT 14.4 SECONDS (9.4-12.5) H 07/02/18 16:15 INR 1.30 07/02/18 16:15 APTT 39.1 Seconds (26.9-38.3) H 07/02/18 16:15 - Head Exam Head Exam: ATRAUMATIC - Eye Exam Eye Exam: Normal appearance - ENT Exam ENT Exam: Mucous Membranes Dry - Respiratory Exam Respiratory Exam: NORMAL BREATHING PATTERN - Cardiovascular Exam Cardiovascular Exam: +S1, +S2 - GI/Abdominal Exam GI & Abdominal Exam: Normal Bowel Sounds Assessment and Plan (1) Anemia Assessment & Plan: anemia of chronic disease from infection and anemia of CKD agree with transfusion support erythropoietin supplementation to decrease transfusion dependence no iron/b12/folate deficiency KAREL can be positive without hemolysis - no evidence of hemolysis Status: Chronic
--- NOTE | 2018-07-09 21:13 | CP.PCM.PN ---
Subjective - Date & Time of Evaluation Date of Evaluation: 07/09/18 Time of Evaluation: 12:00 - Subjective Subjective: No complaints. Objective - Vital Signs/Intake and Output Vital Signs (last 24 hours): Temp Pulse Resp BP Pulse Ox 98.4 F 83 20 144/58 L 100 07/09/18 14:00 07/09/18 14:00 07/09/18 14:00 07/09/18 14:00 07/09/18 14:00 Intake and Output: 07/09/18 07/10/18 18:59 06:59 Intake Total 300 Balance 300 - Labs Labs: 07/09/18 07:20 07/09/18 07:20 PT 14.4 SECONDS (9.4-12.5) H 07/02/18 16:15 INR 1.30 07/02/18 16:15 APTT 39.1 Seconds (26.9-38.3) H 07/02/18 16:15 - Head Exam Head Exam: ATRAUMATIC - Eye Exam Eye Exam: Normal appearance - ENT Exam ENT Exam: Mucous Membranes Dry - Respiratory Exam Respiratory Exam: NORMAL BREATHING PATTERN - Cardiovascular Exam Cardiovascular Exam: +S1, +S2 - GI/Abdominal Exam GI & Abdominal Exam: Normal Bowel Sounds Assessment and Plan (1) Anemia Assessment & Plan: anemia of chronic disease from infection and anemia of CKD agree with transfusion support erythropoietin supplementation to decrease transfusion dependence no iron/b12/folate deficiency KAREL can be positive without hemolysis - no evidence of hemolysis Status: Chronic
--- NOTE | 2018-07-10 02:29 | PN ---
DATE: 07/09/2018 SUBJECTIVE: The patient is seen in bed, in no acute distress, nontoxic. PHYSICAL EXAMINATION: VITAL SIGNS: Temperature is 98, blood pressure is 140/80, respiratory rate of 20, heart rate of 83. HEENT: Unremarkable. NECK: Supple. LUNGS: Have decreased breath sounds. LABORATORY EXAMINATION: Reveals a white count of 7.1. Laboratories noted creatinine is 1.3. ASSESSMENT AND PLAN: This is a 62-year-old female who was seen earlier this morning in room 571, bed 1 with multiple comorbidities of sepsis, left-sided healthcare-associated pneumonia, multiple allergies, methicillin-resistant Staphylococcus aureus cellulitis and osteomyelitis. Would recommend four weeks of Zyvox with complete blood count, SMA-18, sedimentation rate, C-reactive protein once weekly. Carroll Castellano MD
== END 2018-07-09 16:58 | disposition home or self-care (01) | DRG 584 ==
LOC: ED 14:28 → ERH 16:44 → 3RNO 18:45 → 2RNO 07-03 03:52 → 5RSO 07-06 22:11
PROVIDERS: ADMIT Hospitalist; ATTEND Internal Medicine
PROC: 3E03328 Introduction of Oxazolidinones into Peripheral Vein, Percutaneous Approach (ICD-10-PCS; principal; 2018-07-02)
PROC: 05H533Z Insertion of Infusion Device into Right Subclavian Vein, Percutaneous Approach (ICD-10-PCS; 2018-07-03)
PROC: B546ZZA Ultrasonography of Right Subclavian Vein, Guidance (ICD-10-PCS; 2018-07-03)
PROC: 30233N1 Transfusion of Nonautologous Red Blood Cells into Peripheral Vein, Percutaneous Approach (ICD-10-PCS; 2018-07-03)
DX: A41.9 Sepsis, unspecified organism (principal); J18.9 Pneumonia, unspecified organism; N17.9 Acute kidney failure, unspecified; E11.22 Type 2 diabetes mellitus with diabetic chronic kidney disease; N18.4 Chronic kidney disease, stage 4 (severe); L03.115 Cellulitis of right lower limb; L03.116 Cellulitis of left lower limb; E11.621 Type 2 diabetes mellitus with foot ulcer; L97.519 Non-pressure chronic ulcer of other part of right foot with unspecified severity; L97.529 Non-pressure chronic ulcer of other part of left foot with unspecified severity; E87.5 Hyperkalemia; E11.51 Type 2 diabetes mellitus with diabetic peripheral angiopathy without gangrene; E11.319 Type 2 diabetes mellitus with unspecified diabetic retinopathy without macular edema; K22.2 Esophageal obstruction; E87.2 Acidosis; E11.69 Type 2 diabetes mellitus with other specified complication; M86.9 Osteomyelitis, unspecified; B95.62 Methicillin resistant Staphylococcus aureus infection as the cause of diseases classified elsewhere; R56.9 Unspecified convulsions; D63.1 Anemia in chronic kidney disease; I12.9 Hypertensive chronic kidney disease with stage 1 through stage 4 chronic kidney disease, or unspecified chronic kidney disease; N28.1 Cyst of kidney, acquired; R65.20 Severe sepsis without septic shock; K21.9 Gastro-esophageal reflux disease without esophagitis; H91.91 Unspecified hearing loss, right ear; I25.10 Atherosclerotic heart disease of native coronary artery without angina pectoris; Z85.828 Personal history of other malignant neoplasm of skin; Z89.422 Acquired absence of other left toe(s); Z89.421 Acquired absence of other right toe(s); Z98.42 Cataract extraction status, left eye; Z98.41 Cataract extraction status, right eye